=== PATIENT | male | born 1960 | race Caucasian/White ===

== ENCOUNTER 2017-12-03 01:48 | Emergency (ER) | payer MEDICARE, MEDICAID, SELFPAY ==
[2017-12-03 01:50] VITALS: BP 201/101; PULSE 64; RESP 18; TEMP 36.9; O2SAT 96; BMI 35.8
[2017-12-03] MEDS: Diphth,Pertuss(Acell),Tet Vac 0.5 ML Vial IM (04:27)
--- NOTE | 2017-12-03 04:35 | ED.VISSUMM ---
- ER Visit Summary Date of Service: 12/03/17 Chief Complaint: Dog bite History of Present Illness: The patient is a 57 M who was bitten by his neighbor's dog about 6 hours prior to the time of my evaluation. He was bitten on his left hand. He does have a laceration to left thumb. He complains of only mild pain. He denies paresthesias weakness or loss of function. Physical Examination: Afebrile vitals are stable he is hypertensive No distress Heart regular rate and rhythm Lungs are clear There is a 2-1/2 cm laceration of the left thumb he has active full range of motion normal distal sensation with brisk capillary refill Test Results: Not indicated Emergency Department Course and Treatment: Given the length of the laceration and the fact that it is gaping and pulls apart with movement I believe closure is necessary. Patient was anesthetized with a digital block the wound was irrigated with sterile saline and closed with 4 simple interrupted 4-0 absorbable sutures. He was given Augmentin and given a prescription for the same for antibiotic prophylaxis. He was instructed on local wound care. He was instructed on signs and symptoms of infection to monitor for and conditions which should prompt return here for reevaluation. He will otherwise follow-up with his primary care physician. All questions answered at bedside and he was discharged home. Treatment Plan: [] Disposition: Discharge Impression: Dog bite left thumb This note was generated with [employer] dictation software. It may contain incorrect words, spelling, and punctuation that were not noted in review of the chart prior to signing ED Disposition - Plan for ED Patient: Chief Complaint: Bite Referrals: Levon Corral MD [Primary Care Provider] -
[2017-12-03 04:36] VITALS: BP 168/103; PULSE 60; RESP 14; O2SAT 95
--- NOTE | 2017-12-03 04:39 | ED.DCSUM_ITS ---
- ER Visit Summary Date of Service: 12/03/17 Chief Complaint: Dog bite History of Present Illness: The patient is a 57 M who was bitten by his neighbor 's dog about 6 hours prior to the time of my evaluation. He was bitten on his left hand. He does have a laceration to left thumb. He complains of only mild pain. He denies paresthesias weakness or loss of function. Physical Examination: Afebrile vitals are stable he is hypertensive No distress Heart regular rate and rhythm Lungs are clear There is a 2-1/2 cm laceration of the left thumb he has active full range of motion normal distal sensation with brisk capillary refill Test Results: Not indicated Emergency Department Course and Treatment: Given the length of the laceration and the fact that it is gaping and pulls apart with movement I believe closure is necessary. Patient was anesthetized with a digital block the wound was irrigated with sterile saline and closed with 4 simple interrupted 4-0 absorbable sutures. He was given Augmentin and given a prescription for the same for antibiotic prophylaxis. He was instructed on local wound care. He was instructed on signs and symptoms of infection to monitor for and conditions which should prompt return here for reevaluation. He will otherwise follow-up with his primary care physician. All questions answered at bedside and he was discharged home. Treatment Plan: [] Disposition: Discharge Impression: Dog bite left thumb This note was generated with [employer] dictation software. It may contain incorrect words, spelling, and punctuation that were not noted in review of the chart prior to signing ED Disposition - Plan for ED Patient: Chief Complaint: Bite Referrals: Levon Corral MD [Primary Care Provider] -
--- NOTE | 2017-12-03 04:39 | ED.DEP ---
ED Disposition - Plan for ED Patient: Chief Complaint: Bite Instructions: ED Bite Dog Prescriptions: Amox/Clavulanate Tablet [Augmentin Tablet] 875 mg PO Q12H #20 tab Referrals: Levon Corral MD [Primary Care Provider] -
[2017-12-03] MEDS: Amox/Clavulanate 875 MG Tablet PO (04:42)
== END 2017-12-03 04:44 | disposition home or self-care (01) ==
PROVIDERS: Emergency Provider Emergency Medicine; Family Provider Internal Medicine; PCP Internal Medicine
DX: S60.372A Other superficial bite of left thumb, initial encounter (principal); W54.0XXA Bitten by dog, initial encounter; Y93.9 Activity, unspecified; Y92.9 Unspecified place or not applicable; Z23 Encounter for immunization; I10 Essential (primary) hypertension; E78.00 Pure hypercholesterolemia, unspecified; E03.9 Hypothyroidism, unspecified; I48.92 Unspecified atrial flutter; Z87.19 Personal history of other diseases of the digestive system; Z86.79 Personal history of other diseases of the circulatory system; Z79.82 Long term (current) use of aspirin; Z79.01 Long term (current) use of anticoagulants; Z79.899 Other long term (current) drug therapy; Z72.0 Tobacco use
CPT/HCPCS: 12001; 90471; 90715; 99284

== ENCOUNTER 2018-05-13 16:26 | Emergency (ER) | payer MEDICARE, MEDICAID, SELFPAY ==
[2018-05-13 16:29] VITALS: BP 132/88; PULSE 78; RESP 19; TEMP 36.4; O2SAT 99; BMI 35.4
--- NOTE | 2018-05-13 17:10 | RAD_ITS ---
STUDY: X-RAY - CERVICAL SPINE REASON FOR EXAM: Male, 57 years old. Left-sided neck pain radiating to left shoulder. Hit head 4 months ago. TECHNIQUE: 7 view(s) of the cervical spine were obtained. COMPARISON: None FINDINGS: There are degenerative changes of the anterior atlantoaxial articulation. Normal odontoid process. There is straightening of the normal cervical lordosis. There is multi-level endplate spondylosis. There is multi-level degenerative disc disease with multilevel disc space narrowing. Normal visualized intervertebral neuroforamina. There is no evidence of acute fracture or loss of vertebral axial height. There is maintenance of normal alignment. The soft tissue structures are unremarkable. RAD/Cerv Spine 4 or 5 Views IMPRESSION: Straightened cervical lordosis with mild degenerative changes of the cervical spine. Electronically Signed: Rigoberto Larsen DO at 17:45 EST Tel [phone], Service support ,
--- NOTE | 2018-05-13 17:55 | ED.VISSUMM ---
- ER Visit Summary Date of Service: 05/13/18 Chief Complaint: Neck pain times 4 months as well as left trapezius, left shoulder and left upper extremity History of Present Illness: The patient is a 57 M who is right-hand dominant presents with neck pain for 4 months. Complains of burning sensation of the entire left upper extremity. He denies motor weakness. He denies any recent trauma. He denies cardiac or respiratory symptoms. He is presently on [place] and states it is a joke. Past medical history COPD, GERD, chronic atrial fibrillation, hypothyroidism, sleep apnea and abdominal aortic aneurysm Physical Examination: Vital signs noted and blood pressure is elevated 132/88 there is pain to palpation posterior neck predominately left side. There is pain abrasion over the left trapezius muscle. He complains of pain with internal rotation of the left shoulder. There is no discomfort with abduction past 90 degrees. There is no pain with flexion-extension of the elbow or supination pronation of the elbow. He has no pain with flexion extension abduction adduction of the wrist. He denies any pain with movement of his fingers. He denies swelling of his joints. Biceps, brachialis and triceps reflex are 1+ and symmetric. Test Results: 4 view x-ray of the neck reveals prior fracture of the spinous process of C6 and 7. There is mild arthritic changes noted as well. Emergency Department Course and Treatment: X-ray was obtained to evaluate for degenerative disc disease osteophytes etc. Treatment Plan: Patient was referred to Dr. Ellis ansari Dr. since this is a chronic issue and is presently on [place] with no relief. He he may need outpatient testing i.e. EMG etc. Disposition: Discharged to follow-up with his PCP Impression: Exacerbation of chronic neck pain with paresthesia left upper extremity Prior spinous process fracture cervical spine C6 and C7 This note was generated with [employer] dictation software. It may contain incorrect words, spelling, and punctuation that were not noted in review of the chart prior to signing ED Disposition - Plan for ED Patient: Disposition: Home or Assisted Living Chief Complaint: Numb/Ting Instructions: ED Neuropathy Peripheral, ED Neck Back Pain General Referrals: Levon Corral MD [Primary Care Provider] - 3-5 Days Additional Instructions: Take 3 Advil every 6-8 hours in addition to the [place] you were prescribed for your chronic pain.
== END 2018-05-13 18:10 | disposition home or self-care (01) ==
PROVIDERS: Emergency Provider Emergency Medicine; Family Provider Internal Medicine; PCP Internal Medicine
DX: M54.2 Cervicalgia (principal); G89.29 Other chronic pain; R20.2 Paresthesia of skin; E66.9 Obesity, unspecified; J44.9 Chronic obstructive pulmonary disease, unspecified; K21.9 Gastro-esophageal reflux disease without esophagitis; E03.9 Hypothyroidism, unspecified; I48.2 Chronic atrial fibrillation; G47.30 Sleep apnea, unspecified; I71.4 Abdominal aortic aneurysm, without rupture
CPT/HCPCS: 72050; 99283

== ENCOUNTER → 2018-06-03 07:23 | Outpatient (CLI) | payer MEDICARE, MEDICAID, SELFPAY ==
--- NOTE | 2018-06-03 11:17 | NEURO ---
NCS and/or EMG Patient Report Ordering Doctor: Levon Corral DATE OF SERVICE: 06/03/18 This is a upper extremity EMG and nerve conduction study performed on this 57-year-old male with sharp pain in his left shoulder for approximately 5 months with radiates into his hand affecting all fingers. He says the symptoms started after he experienced a fall 5 months ago. Symptoms remain intermittent. He is healthy otherwise without a history of diabetes or significant alcohol intake. Left upper extremity sensory and motor nerve conduction studies performed. The median motor and sensory, ulnar motor and sensory and radial sensory bounces are normal. Median and ulnar F-wave latencies are intact. Left upper extremity needle electromyography is performed. Muscles evaluated included the first dorsal interosseous, abductor pollicis brevis, brachioradialis, biceps, triceps and deltoid muscles. All muscles demonstrated normal insertional activity with absence of pathologic spontaneous activity. Motor unit potential recruitment pattern and amplitude was normal in all muscles tested. In addition to the above and also muscles tested, the supraspinatus, infraspinatus, and C5, 6, 7 paraspinal muscles on the left side were evaluated. His muscles were also normal. Impression: This is a normal electrophysiology study of the left upper extremity. There are neuroimaging of the brachial plexus with MRI may be of benefit.
--- OUTSIDE RECORDS SUMMARY | 2018-07-15 20:00 | XMS RPT_ITS ---
:1960 Author Organization OHIP Care Team Providers Name Role Phone Levon Earl Primary Care Unavailable Prabhakar Beckham Attending Unavailable Levon Earl Primary Care Unavailable Ayush Cope Attending Unavailable Levon Earl Primary Care Unavailable Kamini Granado CNP Attending Unavailable Kamini Granado CNP Referring Unavailable Levon Earl Primary Care Unavailable Ernst Hermosillo Attending Unavailable SIMON, ADRIANO Drake Referring Unavailable LEVON EARL Referring Unavailable LEVON EARL Attending Unavailable KAMINI GRANADO (RESEARCH INVESTIGATOR) Attending Unavailable LEVON EARL Attending Unavailable SIMON, ADRIANO E Referring Unavailable SIMON, ADRIANO E Attending Unavailable SIMON, ADRIANO E Referring Unavailable SIMON, ADRIANO E Referring Unavailable SIMON, ADRIANO E Referring Unavailable SIMON, ADRIANO E Referring Unavailable SIMON, ADRIANO E Referring Unavailable LEVON EARL Attending Unavailable KAMINI GRANADO (EDWIN) Attending Unavailable KAMINI GRANADO (RESEARCH INVESTIGATOR) Referring Unavailable SIMON, ADRIANO E Attending Unavailable SIMON, ADRIANO E Referring Unavailable SIMON, ADRIANO Attending Unavailable SIMON, ADRIANO Referring Unavailable SIMON, ADRIANO Attending Unavailable Levon Earl MD Primary Care Unavailable PROBLEMS PROBLEMS DATE TYPE CONDITION / CODE ATTENDING STATUS SOURCE 05/22/2018 Active Cervicalgia / NA Active [place] M54.2(ICD-10) Clinic Main [place] Repository 05/16/2018 Unknown M54.2 - Cope, Ayush Active [place] [facility] M54.2(ICD-10) Hospital Repository 03/31/2018 Active 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 [facility] (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 Clinic Main therapy / [place] Z79.899(ICD-10) Repository 03/12/2018 Active Essential NA Active [facility] (primary) Clinic Main hypertension / [place] I10(ICD-10) Repository 08/27/2016 Active Atypical atrial ADRIANO MONTES Active [facility] flutter / E Clinic Other I48.4(ICD-10) [place] Repository 08/27/2016 Admitting Unknown / ADRIANO MONTES Active [place] [facility] diagnosis [facility](Unknown[facility] Repository 07/11/2017 Active Persistent atrial NA Active [facility] fibrillation / Clinic Main I48.1(ICD-10) [place] Repository PROCEDURES PROCEDURES No Procedure Records FoundRESULTS RESULTS 12 LEAD ELECTROCARDIOGRAM Observed: 06/16/2018 Status: F Source: [place] 2:33 PM [facility] REPOSITORY [facility] Cardiovascular Services [address] [place] [address] 12 Lead EKG 06/12/18 1632 MR#: [id number] Acct: [id number] Name: JENNIE MCCARTHY . Rep #: [id number] : 1960 57 From: Marcio Hampton MD Attending Dr: Status: DEP ER Ordering Dr: Ernst Hermosillo MD Date: 06/12/18 Location: ED Sex: M C Admitted: Test Reason : Blood Pressure : / mmHG Vent. Rate : 074 BPM Atrial Rate : 264 BPM P-R Int : 000 ms QRS Dur : 098 ms QT Int : 414 ms P-R-T Axes : 085 -05 052 degrees QTc Int : 459 ms Atrial flutter with variable A-V block Inferior infarct , age undetermined Abnormal ECG Confirmed by NIKOS MARIE, MARCIO ([id number]), fan mail editor JUAN ROCK ([id number]) on 06/16/2018 2:33:12 PM Referred By: Kamini Granado Confirmed By:MARCIO HAMPTON MD 06/16/18 1433 Date Marcio Hampton MD CC: MD Viky Hermosillo; Levon Earl MD Signed EMERGENCY DEPARTMENT Observed: 06/12/2018 Status: F Source: [place] SUMMARY 11:26 PM [facility] REPOSITORY [facility] Medical Records Department [address] [place] [address] Emergency Department Summary 06/12/18 1621 MR#: [id number] Acct: [id number] Name: JENNIE MCCARTHY . Rep #: [id number] : 1960 57 From: Ernst Hermosillo MD PCP: Levon Earl MD Status: DEP ER - ER Visit Summary Date of Service: 06/12/18 Chief Complaint: [] Uvula, swollen today History of Present Illness: The patient is a 57 M [] patient reports he is really been in good health he noticed swelling of his uvula this morning that persisted he went to bed feeling fine, had no fever no cough no sore throat, he is not prone to uvular swelling or pharyngitis he had no chest pain he is not short of breath he has had no fever no cough his bowel and bladder habits been normal and his other health conditions have all been stable Physical Examination: [] 165/99, 95% room air afebrile General, no distress resting comfortably HEENT is generally unremarkable except his uvula is obviously swollen and edematous his airways intact for the mouth is normal there is no exudate, his speech is easy and clear to understand no stridor or drooling The neck is supple no adenopathy Cardiovascular, regular rate and rhythm Lungs, clear bilateral Abdomen, soft nontender Extremities, no clubbing cyanosis or edema Neurologic, awake alert answering questions appropriately moving all 4 extremities No complaints other than the above, he was given azithromycin, Naprosyn here first dose without difficulty he is able to eat and drink and swallow without difficulty he will continue those prescriptions follow with his family doctor return for change in symptoms Test Results: [] Emergency Department Course and Treatment: [] Treatment Plan: [] Disposition: [] Home stable Impression: [] Uvulitis This note was generated with Olo dictation software. It may contain incorrect words, spelling, and punctuation that were not noted in review of the chart prior to signing ED Disposition - Plan for ED Patient: Chief Complaint: Shortness of Breath Referrals: Levon Earl MD [Primary Care Provider] - What to do if you have Problems For any increased pain, shortness of breath, bleeding, nausea or vomiting, chest pain, or any unexpected problems, contact your Primary Care Provider. Call [facility] ([phone]) or report to the closest Emergency Room. Call 911 if necessary. 06/12/18 2326 <Electronically signed by Ernst Hermosillo MD> Date Ernst Hermosillo MD Cosigner Signature (If Indicated): Date CC: Levon Earl MD DISCHARGE INSTRUCTION Observed: 06/12/2018 Status: F Source: [place] 4:30 PM [facility] REPOSITORY [facility] Medical Records Department [address] [place] [address] Discharge Instruction 06/12/18 1627 MR#: [id number] Acct: [id number] Name: SHARIJENNIE . Rep #: [id number] : 1960 57 From: Ernst Hermosillo MD PCP: Levon Earl MD Status: PRE ER ED Disposition - Plan for ED Patient: Chief Complaint: Shortness of Breath Instructions: ED Uvulitis Prescriptions: Azithromycin [Zithromax Z-Silver] 250 mg PO UD #1 box Naproxen [Naprosyn] 500 mg PO BID PRN #20 tab Referrals: Levon Earl MD [Primary Care Provider] - What to do if you have Problems For any increased pain, shortness of breath, bleeding, nausea or vomiting, chest pain, or any unexpected problems, contact your Primary Care Provider. Call [facility] ([phone]) or report to the closest Emergency Room. Call 911 if necessary. 06/12/18 1630 <Electronically signed by Ernst Hermosillo MD> Date Ernst Hermosillo MD Cosigner Signature (If Indicated): Date CC: Levon Earl MD NCS AND/OR EMG Observed: 06/04/2018 Status: F Source: [place] PATIENT 4:37 PM [facility] REPOSITORY [facility] Pulmonary Services/Neurology [address] [place] [address] MR#: [id number] Acct: [id number] Name: JENNIE MCCARTHY Sr. Rep #: [id number] : 1960 57 From: Melvin Valentino MD Referring Dr: Kamini Granado [facility] Status: REG CLI Ordering Dr: Date: Location: [facility] Sex: M C NCS and/or EMG Patient Report Ordering Doctor: Levon Earl DATE OF SERVICE: 06/03/18 This is a upper extremity EMG and nerve conduction study performed on this 57-year-old male with sharp pain in his left shoulder for approximately 5 months with radiates into his hand affecting all fingers. He says the symptoms started after he experienced a fall 5 months ago. Symptoms remain intermittent. He is healthy otherwise without a history of diabetes or significant alcohol intake. Left upper extremity sensory and motor nerve conduction studies performed. The median motor and sensory, ulnar motor and sensory and radial sensory bounces are normal. Median and ulnar F-wave latencies are intact. Left upper extremity needle electromyography is performed. Muscles evaluated included the first dorsal interosseous, abductor pollicis brevis, brachioradialis, biceps, triceps and deltoid muscles. All muscles demonstrated normal insertional activity with absence of pathologic spontaneous activity. Motor unit potential recruitment pattern and amplitude was normal in all muscles tested. In addition to the above and also muscles tested, the supraspinatus, infraspinatus, and C5, 6, 7 paraspinal muscles on the left side were evaluated. His muscles were also normal. Impression: This is a normal electrophysiology study of the left upper extremity. There are neuroimaging of the brachial plexus with MRI may be of benefit. 06/04/18 1637 <Electronically signed by Melvin Valentino MD> Date Melvin Valentino MD CC: Kamini Granado; Melvin Valentino MD; Levon Earl MD Date Dictated: 06/03/181116 Date Transcribed: 06/03/181116 Head Of Mobile: SETH Signed PRERNA Observed: 05/23/2018 Status: COMPLETED Source: [place] 12:00 AM [facility] REPOSITORY Telephone (INTMWS) JENNIE MCCARTHY ([id number]) 1960 M Date Time Provider Department 05/23/18 KAMINI GRANADO (EDWIN) INTMWS During your visit today, we recorded the following information about you: Kamini Granado APRN.CNP 05/23/2018 2:17 PM Signed Please let the patient know the-xray of his neck was negative for fracture, old or new VIKA Muñoz Cma 05/23/2018 2:25 PM Signed Patient is notified of all information and verbalizes understanding. Patient states that there has to be something wrong this doesn't make sense to him he still is having pain and numbness in the arm. Veronica Fishman Cma 05/23/2018 2:33 PM Signed Patient aware to keep appointments for EMG and spine medicine for further evaluation and treatment. Veronica Fishman Cma Allergies As of Date: 05/23/2018 Noted Allergy Reaction PREDNISONE 02/27/2011 9 - Itching Date Reviewed: 05/21/2018 Reviewed by: Veronica Fishman Cma - Fully Assessed Reason for Visit: Results [95] Prescriptions as of 05/23/2018 Sig: GABAPENTIN 300 MG CAPSULE Take one capsule by mouth at * TRIAMCINOLONE ACETONIDE 0.5 %* Apply 1 application to affect* HYDROCODONE 5 MG-ACETAMINOPHE* Take 1 tablet by mouth twice * AMITRIPTYLINE 25 MG TABLET Take 1 tablet by mouth daily * LEVOTHYROXINE 150 MCG TABLET TAKE 1 TABLET BY MOUTH EVERY * ALBUTEROL SULFATE 2.5 MG/3 ML* Use 3 mL via nebulizer every * LISINOPRIL 20 MG TABLET Take 1 tablet by mouth once d* HYDROCODONE 5 MG-ACETAMINOPHE* Take 1 tablet by mouth twice * WARFARIN 5 MG TABLET take 5mg tablet on Saturday,Sat* OMEPRAZOLE 20 MG CAPSULE,ALIYAH* Take 1 capsule by mouth daily* ATORVASTATIN 40 MG TABLET Take 1 tablet by mouth once d* NITROGLYCERIN 0.4 MG SUBLINGU* Dissolve 1 tablet under the t* COMPOUNDED PRESCRIPTION NEBULIZER FOR HOME USE. Problem List As Of Date 05/23/2018 Noted Resolved Esophageal reflux [K21.9] Internal hemorrhoids without mention of complic*INVALID FOR*01/02/2017 Tobacco use disorder [F17.200] INVALID FOR*09/04/2011 Chronic airway obstruction, not elsewhere class*INVALID FOR*02/03/2014 Hypothyroidism [E03.9] INVALID FOR* GYNECOMASTIA [N62] INVALID FOR*11/04/2008 Unspecified sleep apnea [G47.30] INVALID FOR*06/09/2013 More... 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 SCREENING FOR CONDITION NOS [Z13.9] INVALID FOR*11/04/2008 Obesity, unspecified [E66.9] INVALID FOR*06/08/2013 History of repair of aneurysm of abdominal aort*INVALID FOR* Lumbago [M54.5] INVALID FOR* More... Patient Noncompliance [Z91.19] INVALID FOR* Erectile dysfunction [N52.9] INVALID FOR*01/02/2017 Pulmonary embolism [I26.99] INVALID FOR*01/06/2013 More... Atrial flutter [I48.92] INVALID FOR*12/31/2017 More... Atrial fibrillation [I48.91] INVALID FOR* Cervicalgia [M54.2] INVALID FOR*04/13/2013 Headache [R51] INVALID FOR*04/13/2013 SUMMARY [V999.95] INVALID FOR*02/03/2014 More... History of pulmonary embolism [Z86.711] INVALID FOR*01/02/2017 More... History of smoking [Z87.891] INVALID FOR*06/09/2013 More... Hyperlipidemia [E78.5] INVALID FOR* More... Atelectasis [J98.11] INVALID FOR*02/03/2014 More... Hypertension [I10] INVALID FOR* Hypovolemia [E86.1] INVALID FOR*06/15/2013 More... VANIA (obstructive sleep apnea) AHI 71 [G47.33] INVALID FOR* Obesity [E66.9] INVALID FOR* Nasal congestion [R09.81] INVALID FOR*08/27/2016 Visual impairment in both eyes [H54.3] INVALID FOR*08/27/2016 Physical deconditioning, multifactorial dyspnea*INVALID FOR*08/27/2016 Lumbar spondylosis [M47.816] INVALID FOR*12/31/2017 DDD (degenerative disc disease), lumbar [M51.36]INVALID FOR*12/31/2017 Sciatica [M54.30] INVALID FOR*08/27/2016 Sebaceous cyst [L72.3] INVALID FOR*01/02/2017 Bronchitis [J40] INVALID FOR* Rosacea [L71.9] INVALID FOR* Obesity, Class II, BMI 35-39.9 [E66.9] INVALID FOR* Encounter Status:Closed by VERONICA ABRAHAM CMA on 05/23/18 XR CERVICAL 2V Observed: 05/22/2018 Status: F Source: [place] AP/LAT 1:41 PM [facility] REPOSITORY * * *Final Report* * * DATE OF EXAM: May 22 2018 1:41PM WOX [id number] - XR CERVICAL 2V AP/LAT / PROCEDURE REASON: Neck pain * * * * Physician Interpretation * * * * CERVICAL SPINE - 05/22/2018 1:41 PM TECHNIQUE: 3 views (AP, LAT, swimmers LAT) HISTORY - Clinical Information/Indication: Left lateral neck and shoulder pain radiating to the fingers; S/P fall hitting 4 head 4 months ago COMPARED WITH: 12/23/2012 cervical spine x-rays RESULT: There is a normal lordosis. Disc space heights are maintained. There is mild anterior endplate osteophytosis at several disc levels. Apophyseal joints appear intact. No listhesis is seen. There is good mineralization. Large ligamentum nuchae ossification is again noted. There has been no significant interval change. IMPRESSION: Minimal spondylosis; no significant interval change Head Of Mobile: [place] Transcribe Date/Time: May 23 2018 11:55A Dictated by : CHARLES MENDEZ MD This examination was interpreted and the report reviewed and electronically signed by: CHARLES MENDEZ MD on May 23 2018 11:59AM EST [id number] PROGRESS Observed: 05/22/2018 Status: COMPLETED Source: [place] 1:32 PM [facility] REPOSITORY HNO ID: [id number] Author: Laisha Brooks Service: (none) Author Type: (none) Type: Progress Notes Filed: 05/22/2018 1:41 PM Note Text: Radiology Service Progress Note PATIENT NAME: Jennie Mccarthy DATE OF SERVICE: May 22, 2018 TIME: 1:32 PM PATIENT IDENTITY VERIFICATION COMPLETED USING TWO (2) METHODS: Patient confirmed name verbally and Date of . PATIENT GENDER DATA: Male PATIENT RELEVANT IMPLANT DATA REVIEWED: Not Applicable RADIOLOGY DEPARTMENT: General X-ray: Exam(s) Completed: Spine X-Ray(s): Cervical AP / LAT PERIPHERAL IV DATA: Not applicable SIGNED BY: Laisha Brooks May 22, 2018 1:32 PM PROGRESS Observed: 05/21/2018 Status: COMPLETED Source: [place] 1:04 PM [facility] REPOSITORY HNO ID: [id number] Author: Kamini Damon) Older Service: (none) Author Type: Nurse Practitioner Type: Progress Notes Filed: 05/22/2018 8:11 AM Note Text: CC: Patient presents with: Follow Up: ER HPI Jennie Mccarthy is a 57 year old male who presents today for ER follow-up. Facility: [facility] Date of visit: 05/13/18 Reason for visit: chronic neck pain radiating into left shoulder and down left arm along with numbness/tingling Hospital course: X-ray of neck per ER report showed prior fracture of the spinous process of C6 and 7. Radiologist reading did not mention any fracture, acute or remote. Mild degenerative changes of the spine seen. Discharge: No further work-up. Patient already prescribed [place] in primary care, was advised to follow-up with PCP to discuss further testing. Current symptoms: Continues to have shooting pain from the left side of his neck down his left arm to his fingers. Positive for numbness/tingling of the entire LUE. This has been ongoing for the past 4 months and getting worse. Does not recall any specific neck injury but hit his head hard enough on a beam to make his head snap forward. Pain started shortly after that. Denies left arm weakness, headache, dizziness, lightheadedness, visual disturbance. Already prescribed hydrocodone twice a day for low back pain, does not help with the neck pain. Muscle relaxers did not help either. Has not treated with ice, heat or any other medications. 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 - Erectile dysfunction 02/27/2011 - Esophageal reflux Gastroesophageal reflux - Fatty liver - GYNECOMASTIA 11/08/2006 - Hemorrhage of rectum and anus 12/25/2009 bleeding hemorrhoids - Hiatal hernia - Hypertension 06/12/2013 - Obesity, unspecified 11/04/2008 - Obstructive sleep apnea - Other and unspecified hyperlipidemia 11/05/2006 - Other emphysema (HCC) Emphysema - Pulmonary embolism (HCC) 05/19/2011 - Substance abuse (HCC) - Tobacco use disorder 10/24/2006 ex-smoker - Unspecified constipation Constipation - Unspecified hypothyroidism 11/05/2006 PAST SURGICAL HISTORY Procedure Laterality Date - ABD AORTA ANEURYSM REPAIR 06/12/2013 Abd Aortic Aneurysm Repair, Endovascular - COLONOSCOP W/ OR W/O [facility] SPEC 12/26/09 - COLONOSCOPY 2005 - HEMORRHOID;BAND LIGAT, SNGL/MUL November2004 - LAP CHOLECYSTECT/CHOLANGIOGRAPHY 07/07/07 - REMOVAL OF TONSILS,<12 Y/O Tonsillectomy ALLERGIES Prednisone MEDICATIONS HYDROcodone-acetaminophen (NORCO) 5-325 mg per tablet Take 1 tablet by mouth twice daily for 30 days.Earliest Fill Date: 05/19/18 amitriptyline (ELAVIL) 25 mg tablet Take 1 tablet by mouth daily at bedtime. levothyroxine (SYNTHROID) 150 mcg tablet TAKE 1 TABLET BY MOUTH EVERY DAY ON EMPTY STOMACH FOR THYROID albuterol (PROVENTIL) 2.5 mg /3 mL (0.083 %) nebulizer solution Use 3 mL via nebulizer every 4 hours as needed for Wheezing/Shortness of Breath. Use over 5-15minutes. lisinopril (ZESTRIL, PRINIVIL) 20 mg tablet Take 1 tablet by mouth once daily. HYDROcodone-acetaminophen (NORCO) 5-325 mg per tablet Take 1 tablet by mouth twice daily for 30 days.Earliest Fill Date: 04/14/18 warfarin (COUMADIN) 5 mg tablet take 5mg tablet on Saturday,Saturday,Saturday, and Saturday,then 7.5mg tablet on Saturday and Saturday or as directed omeprazole (PRILOSEC) 20 mg capsule Take 1 capsule by mouth daily before breakfast. 1/2 hr before meal. For heartburn. atorvastatin (LIPITOR) 40 mg tablet Take 1 tablet by mouth once daily. nitroglycerin sublingual (NITROQUICK) 0.4 mg SL tablet Dissolve 1 tablet under the tongue as needed. FOR CHEST PAIN. IF NO RELIEF CALL 911 Nebulizer NEBULIZER FOR HOME USE. FAMILY HISTORY Problem Relation Age of Onset - other (Pancreatic Cancer) Father CArdiomegaly ( age 72) - other (Pneumonia) Mother age 72 - other (aneursm repair) Mother - Aneurysm Brother Lung Cancer ( age 60's) - Heart Brother PR x 2 - other (aneurysm repair) Brother Social History Substance Use Topics - Smoking status: Current Every Day Smoker Packs/day: 1.00 Years: 35.00 Types: Cigarettes Last attempt to quit: 12/08/2009 - Smokeless tobacco: Former User Comment: 10 cig. per day - Alcohol use No PHYSICAL EXAM BP 130/83 Pulse 80 Temp 36.6 ?C (97.9 ?F) (Temporal Artery) Resp 18 Wt 108 kg (238 lb) SpO2 94% BMI 35.66 kg/m? General Appearance: well appearing, in no acute distress, alert Lungs: lungs clear to auscultation. No wheezing, rhonchi, rales Heart: RRR without murmur, gallop, or rubs. No ectopy Extremities: No deformities, edema, skin discoloration Good capillary refill. Pulses: 2+ Musculoskeletal: Neck: Inspection: Normal Palpation: Tenderness with palpation of left trapezius and upper thoracic spine. No cervical spinal tenderness. Full ROM, painful with flexion and extension. Musculoskeletal: Left shoulder: normal to inspection. Moderate tenderness with palpation of upper scapula and top of shoulder. ROM: Full ROM, pain with internal and external rotation. Special tests: Drop arm: -, Empty Can: -, Infraspinatus: -, Mccartney:-, Neer - Upper extremities: reflexes: +1 to bilateral Upper extremities.. Muscle strength: 5/5 bilaterally ASSESSMENT/PLAN: 1. Cervical radicular pain - ICD9: 723.4, ICD10: M54.12 (primary diagnosis) No alarm symptoms or exam findings. Conflicting radiologist and ER physician interpretation of CS x-ray. Will discuss with PCP, may need another x-ray done. - CONSULT TO [facility] for further evaluation and recommendations, - EMG(NEURO/NI) prior to appointment if possible - Start Gabapentin, see orders. Continue with hydrocodone as ordered - Follow-up as scheduled or sooner as needed 2. Numbness and tingling in left arm - ICD9: 782.0, ICD10: R20.0, R20.2 As above - CONSULT TO [facility] - EMG(NEURO/NI) Prescription instructions reviewed with patient as applicable. Potential red flag symptoms discussed with the patient. Reviewed appropriate action plan to take if red flag symptoms occur. Patient agreeable to treatment plan. Kaimni Granado APRN.EDWIN VELEZ Observed: 05/21/2018 Status: COMPLETED Source: [place] 1:00 PM [facility] REPOSITORY Office Visit (INTMWS) JENNIE MCCARTHY ([id number]) 1960 M Date Time Provider Department 05/21/18 1:00 PM OLDER KAMINI (RESEARCH INVESTIGATOR) INTMWS During your visit today, we recorded the following information about you: Temperature Pulse Respiration Blood pressure 97.9 degrees 80/minute 18/minute 130/83 Weight 108 kg Kamini Granado [employer] 05/22/2018 8:11 AM Signed CC: Patient presents with: Follow Up: ER HPI Jennie Mccarthy is a 57 year old male who presents today for ER follow-up. Facility: [facility] Date of visit: 05/13/18 Reason for visit: chronic neck pain radiating into left shoulder and down left arm along with numbness/tingling Hospital course: X-ray of neck per ER report showed prior fracture of the spinous process of C6 and 7. Radiologist reading did not mention any fracture, acute or remote. Mild degenerative changes of the spine seen. Discharge: No further work-up. Patient already prescribed [place] in primary care, was advised to follow-up with PCP to discuss further testing. Current symptoms: Continues to have shooting pain from the left side of his neck down his left arm to his fingers. Positive for numbness/tingling of the entire LUE. This has been ongoing for the past 4 months and getting worse. Does not recall any specific neck injury but hit his head hard enough on a beam to make his head snap forward. Pain started shortly after that. Denies left arm weakness, headache, dizziness, lightheadedness, visual disturbance. Already prescribed hydrocodone twice a day for low back pain, does not help with the neck pain. Muscle relaxers did not help either. Has not treated with ice, heat or any other medications. 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 - Erectile dysfunction 02/27/2011 - Esophageal reflux Gastroesophageal reflux - Fatty liver - GYNECOMASTIA 11/08/2006 - Hemorrhage of rectum and anus 12/25/2009 bleeding hemorrhoids - Hiatal hernia - Hypertension 06/12/2013 - Obesity, unspecified 11/04/2008 - Obstructive sleep apnea - Other and unspecified hyperlipidemia 11/05/2006 - Other emphysema (HCC) Emphysema - Pulmonary embolism (HCC) 05/19/2011 - Substance abuse (HCC) - Tobacco use disorder 10/24/2006 ex-smoker - Unspecified constipation Constipation - Unspecified hypothyroidism 11/05/2006 PAST SURGICAL HISTORY Procedure Laterality Date - ABD AORTA ANEURYSM REPAIR 06/12/2013 Abd Aortic Aneurysm Repair, Endovascular - COLONOSCOP W/ OR W/O BRSH SPEC 12/26/09 - COLONOSCOPY 2005 - HEMORRHOID;BAND LIGAT, SNGL/MUL November2004 - LAP CHOLECYSTECT/CHOLANGIOGRAPHY 07/07/07 - REMOVAL OF TONSILS,<12 Y/O Tonsillectomy ALLERGIES Prednisone MEDICATIONS HYDROcodone-acetaminophen (NORCO) 5-325 mg per tablet Take 1 tablet by mouth twice daily for 30 days.Earliest Fill Date: 05/19/18 amitriptyline (ELAVIL) 25 mg tablet Take 1 tablet by mouth daily at bedtime. levothyroxine (SYNTHROID) 150 mcg tablet TAKE 1 TABLET BY MOUTH EVERY DAY ON EMPTY STOMACH FOR THYROID albuterol (PROVENTIL) 2.5 mg /3 mL (0.083 %) nebulizer solution Use 3 mL via nebulizer every 4 hours as needed for Wheezing/Shortness of Breath. Use over 5-15minutes. lisinopril (ZESTRIL, PRINIVIL) 20 mg tablet Take 1 tablet by mouth once daily. HYDROcodone-acetaminophen (NORCO) 5-325 mg per tablet Take 1 tablet by mouth twice daily for 30 days.Earliest Fill Date: 04/14/18 warfarin (COUMADIN) 5 mg tablet take 5mg tablet on Saturday,Saturday,Saturday, and Saturday,then 7.5mg tablet on Saturday and Saturday or as directed omeprazole (PRILOSEC) 20 mg capsule Take 1 capsule by mouth daily before breakfast. 1/2 hr before meal. For heartburn. atorvastatin (LIPITOR) 40 mg tablet Take 1 tablet by mouth once daily. nitroglycerin sublingual (NITROQUICK) 0.4 mg SL tablet Dissolve 1 tablet under the tongue as needed. FOR CHEST PAIN. IF NO RELIEF CALL 911 Nebulizer NEBULIZER FOR HOME USE. FAMILY HISTORY Problem Relation Age of Onset - other (Pancreatic Cancer) Father CArdiomegaly ( age 72) - other (Pneumonia) Mother age 72 - other (aneursm repair) Mother - Aneurysm Brother Lung Cancer ( age 60's) - Heart Brother PR x 2 - other (aneurysm repair) Brother Social History Substance Use Topics - Smoking status: Current Every Day Smoker Packs/day: 1.00 Years: 35.00 Types: Cigarettes Last attempt to quit: 12/08/2009 - Smokeless tobacco: Former User Comment: 10 cig. per day - Alcohol use No PHYSICAL EXAM BP 130/83 Pulse 80 Temp 36.6 ?C (97.9 ?F) (Temporal Artery) Resp 18 Wt 108 kg (238 lb) SpO2 94% BMI 35.66 kg/m? General Appearance: well appearing, in no acute distress, alert Lungs: lungs clear to auscultation. No wheezing, rhonchi, rales Heart: RRR without murmur, gallop, or rubs. No ectopy Extremities: No deformities, edema, skin discoloration Good capillary refill. Pulses: 2+ Musculoskeletal: Neck: Inspection: Normal Palpation: Tenderness with palpation of left trapezius and upper thoracic spine. No cervical spinal tenderness. Full ROM, painful with flexion and extension. Musculoskeletal: Left shoulder: normal to inspection. Moderate tenderness with palpation of upper scapula and top of shoulder. ROM: Full ROM, pain with internal and external rotation. Special tests: Drop arm: - , Empty Can: -, Infraspinatus: -, Mccartney:-, Neer - Upper extremities: reflexes: +1 to bilateral Upper extremities.. Muscle strength: 5/5 bilaterally ASSESSMENT/PLAN: 1. Cervical radicular pain - ICD9: 723.4, ICD10: M54.12 (primary diagnosis) No alarm symptoms or exam findings. Conflicting radiologist and ER physician interpretation of CS x-ray. Will discuss with PCP, may need another x-ray done. - [facility] for [facility] evaluation and recommendations, - EMG(NEURO/NI) prior to appointment if possible - Start Gabapentin, see orders. Continue with hydrocodone as ordered - Follow-up as scheduled or sooner as needed 2. Numbness and tingling in left arm - ICD9: 782.0, ICD10: R20.0, R20.2 As above - CONSULT TO [facility] - EMG(NEURO/NI) Prescription instructions reviewed with patient as applicable. Potential red flag symptoms discussed with the patient. Reviewed appropriate action plan to take if red flag symptoms occur. Patient agreeable to treatment plan. VIKA Muñoz APRN.CNP 05/21/2018 1:29 PM Signed For skin problems of the ear: Use Triamcinolone cream prescribed. Thin layer to cover the affected parts of the ear. Use for two weeks and call office if no improvement Referring Provider: SELF [200] Allergies As of Date: 05/21/2018 Noted Allergy Reaction PREDNISONE 02/27/2011 9 - Itching Date Reviewed: 05/21/2018 Reviewed by: Veronica Fishman Pepper Picker - Fully Assessed Reason for Visit: Follow Up [171] Cmt: ER Primary Visit Diagnosis:Cervical radicular pain [M54.12] Other Visit Diagnosis:Numbness and tingling in left arm [R20.0, R20.2] Order(s):CONSULT TO THE [facility] [19991007] Order #: [id number]: 1 EMG(NEURO/NI) [[id number]] Order #: [id number]: 1 FUTURE gabapentin (NEURONTIN) 300 mg capsuleTake one capsule by mouth at bedtime. If no relief after two days can increase to twice daily.Disp: 30 capsuleRfl: 0 triamcinolone acetonide (KENALOG) 0.5 % creamApply 1 application to affected area twice daily. For rash/itching. Apply sparingly. Avoid face/skin fold.Disp: 30 gRfl: 0 Prescriptions as of 05/21/2018 Sig: NITROGLYCERIN 0.4 MG SUBLINGU* Dissolve 1 tablet under the t* COMPOUNDED PRESCRIPTION NEBULIZER FOR HOME USE. GABAPENTIN 300 MG CAPSULE Take one capsule by mouth at * TRIAMCINOLONE ACETONIDE 0.5 %* Apply 1 application to affect* HYDROCODONE 5 MG-ACETAMINOPHE* Take 1 tablet by mouth twice * AMITRIPTYLINE 25 MG TABLET Take 1 tablet by mouth daily * LEVOTHYROXINE 150 MCG TABLET TAKE 1 TABLET BY MOUTH EVERY * ALBUTEROL SULFATE 2.5 MG/3 ML* Use 3 mL via nebulizer every * LISINOPRIL 20 MG TABLET Take 1 tablet by mouth once d* HYDROCODONE 5 MG-ACETAMINOPHE* Take 1 tablet by mouth twice * WARFARIN 5 MG TABLET take 5mg tablet on Saturday,Sat* OMEPRAZOLE 20 MG CAPSULE,ALIYAH* Take 1 capsule by mouth daily* ATORVASTATIN 40 MG TABLET Take 1 tablet by mouth once d* Problem List As Of Date 05/21/2018 Noted Resolved Esophageal reflux [K21.9] Internal hemorrhoids without mention of complic*INVALID FOR*01/02/2017 Tobacco use disorder [F17.200] INVALID FOR*09/04/2011 Chronic airway obstruction, not elsewhere class*INVALID FOR*02/03/2014 Hypothyroidism [E03.9] INVALID FOR* GYNECOMASTIA [N62] INVALID FOR*11/04/2008 Unspecified sleep apnea [G47.30] INVALID FOR*06/09/2013 More... 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 SCREENING FOR CONDITION NOS [Z13.9] INVALID FOR*11/04/2008 Obesity, unspecified [E66.9] INVALID FOR*06/08/2013 History of repair of aneurysm of abdominal aort*INVALID FOR* Lumbago [M54.5] INVALID FOR* More... Patient Noncompliance [Z91.19] INVALID FOR* Erectile dysfunction [N52.9] INVALID FOR*01/02/2017 Pulmonary embolism [I26.99] INVALID FOR*01/06/2013 More... Atrial flutter [I48.92] INVALID FOR*12/31/2017 More... Atrial fibrillation [I48.91] INVALID FOR* Cervicalgia [M54.2] INVALID FOR*04/13/2013 Headache [R51] INVALID FOR*04/13/2013 SUMMARY [V999.95] INVALID FOR*02/03/2014 Priority: Very Severe More... History of pulmonary embolism [Z86.711] INVALID FOR*01/02/2017 More... History of smoking [Z87.891] INVALID FOR*06/09/2013 Priority: C More... Hyperlipidemia [E78.5] INVALID FOR* More... Atelectasis [J98.11] INVALID FOR*02/03/2014 Priority: B More... Hypertension [I10] INVALID FOR* Hypovolemia [E86.1] INVALID FOR*06/15/2013 Priority: F More... VANIA (obstructive sleep apnea) AHI 71 [G47.33] INVALID FOR* Obesity [E66.9] INVALID FOR* Nasal congestion [R09.81] INVALID FOR*08/27/2016 Visual impairment in both eyes [H54.3] INVALID FOR*08/27/2016 Physical deconditioning, multifactorial dyspnea*INVALID FOR*08/27/2016 Lumbar spondylosis [M47.816] INVALID FOR*12/31/2017 DDD (degenerative disc disease), lumbar [M51.36]INVALID FOR*12/31/2017 Sciatica [M54.30] INVALID FOR*08/27/2016 Sebaceous cyst [L72.3] INVALID FOR*01/02/2017 Bronchitis [J40] INVALID FOR* Rosacea [L71.9] INVALID FOR* Obesity, Class II, BMI 35-39.9 [E66.9] INVALID FOR* Other instructions from your clinician: For skin problems of the ear: Use Triamcinolone cream prescribed. Thin layer to cover the affected parts of the ear. Use for two weeks and call office if no improvement Prescriptions ordered this encounter Disp Refills Start End GABAPENTIN 300 MG CAPSULE 30 c* 0 05/21/2018 06/04/2018 Sig: Take one capsule by mouth at bedtime. If no relief after two days can increase to twice daily. TRIAMCINOLONE ACETONIDE 0.5 % TOPICA* 30 g 0 05/21/2018 Route: TOPICAL Sig: Apply 1 application to affected area twice daily. For rash/itching. Apply sparingly. Avoid face/skin fold. Encounter Status:Closed by KAMINI GRANADO CNP on 05/22/18 EMERGENCY DEPARTMENT Observed: 05/13/2018 Status: F Source: [place] SUMMARY 6:01 PM [facility] [place] REPOSITORY [facility] Medical Records Department [address] [place] [address] Emergency Department Summary 05/13/18 1755 MR#: [id number] Acct: [id number] Name: JENNIE MCCARTHY Sr. Rep #: [id number] : 1960 57 From: Ayush Cope MD PCP: Levon Earl MD Status: REG ER - ER Visit Summary Date of Service: 05/13/18 Chief Complaint: Neck pain times 4 months as well as left trapezius, left shoulder and left upper extremity History of Present Illness: The patient is a 57 M who is right- hand dominant presents with neck pain for 4 months. Complains of burning sensation of the entire left upper extremity. He denies motor weakness. He denies any recent trauma. He denies cardiac or respiratory symptoms. He is presently on [place] and states it is a joke. Past medical history COPD, GERD, chronic atrial fibrillation, hypothyroidism, sleep apnea and abdominal aortic aneurysm Physical Examination: Vital signs noted and blood pressure is elevated 132/88 there is pain to palpation posterior neck predominately left side. There is pain abrasion over the left trapezius muscle. He complains of pain with internal rotation of the left shoulder. There is no discomfort with abduction past 90 degrees. There is no pain with flexion-extension of the elbow or supination pronation of the elbow. He has no pain with flexion extension abduction adduction of the wrist. He denies any pain with movement of his fingers. He denies swelling of his joints. Biceps, brachialis and triceps reflex are 1+ and symmetric. Test Results: 4 view x-ray of the neck reveals prior fracture of the spinous process of C6 and 7. There is mild arthritic changes noted as well. Emergency Department Course and Treatment: X-ray was obtained to evaluate for degenerative disc disease osteophytes etc. Treatment Plan: Patient was referred to Dr. Earl is since this is a chronic issue and is presently on [place] with no relief. He he may need outpatient testing i.e. EMG etc. Disposition: Discharged to follow-up with his PCP Impression: Exacerbation of chronic neck pain with paresthesia left upper extremity Prior spinous process fracture cervical spine C6 and C7 This note was generated with Olo dictation software. It may contain incorrect words, spelling, and punctuation that were not noted in review of the chart prior to signing ED Disposition - Plan for ED Patient: Disposition: Home or Assisted Living Chief Complaint: Numb/Ting Instructions: ED Neuropathy Peripheral, ED Neck Back Pain General Referrals: Levon Earl MD [Primary Care Provider] - 3-5 Days Additional Instructions: Take 3 Advil every 6-8 hours in addition to the [place] you were prescribed for your chronic pain. What to do if you have Problems For any increased pain, shortness of breath, bleeding, nausea or vomiting, chest pain, or any unexpected problems, contact your Primary Care Provider. Call [facility] ([phone]) or report to the closest Emergency Room. Call 911 if necessary. 05/13/18 1801 <Electronically signed by Ayush Cope MD> Date Ayush Cope MD Cosigner Signature (If Indicated): Date CC: Levon Earl MD CERV SPINE 4 OR 5 Observed: 05/13/2018 Status: F Source: [place] VIEWS 4:46 PM [facility] [place] REPOSITORY [facility] Imaging Services [address] [place] [address] Cerv Spine 4 or 5 Views MR#: [id number] Acct: [id number] Name: SHARIJENNIE Sr. Rep #: [id number] : 1960 M 57 From: Rigoberto Larsen DO PCP: Levon Earl MD Status: REG ER Study: Cerv Spine 4 or 5 Views Date of Exam: 05/13/18 Exam# [id number] Ordering Dr: Ayush Cope MD STUDY: X-RAY - CERVICAL SPINE REASON FOR EXAM: Male, 57 years old. Left-sided neck pain radiating to left shoulder. Hit head 4 months ago. TECHNIQUE: 7 view(s) of the cervical spine were obtained. COMPARISON: None FINDINGS: There are degenerative changes of the anterior atlantoaxial articulation. Normal odontoid process. There is straightening of the normal cervical lordosis. There is multi-level endplate spondylosis. There is multi-level degenerative disc disease with multilevel disc space narrowing. Normal visualized intervertebral neuroforamina. There is no evidence of acute fracture or loss of vertebral axial height. There is maintenance of normal alignment. The soft tissue structures are unremarkable. RAD/Cerv Spine 4 or 5 Views IMPRESSION: Straightened cervical lordosis with mild degenerative changes of the cervical spine. Electronically Signed: Rigoberto Larsen DO at 17:45 EST Tel [phone], Service support , CC: Ayush Cope MD; Levon Earl MD Head Of Mobile: Signed PROGRESS Observed: 04/02/2018 Status: COMPLETED Source: [place] 4:27 PM [facility] REPOSITORY HNO ID: [id number] Author: Levon Earl Service: (none) Author Type: Physician Type: Progress Notes Filed: 04/02/2018 11:16 PM Note Text: This note was created using [employer]. Subjective Jennie Mccarthy is a 57 year old male He was here for chronic opioid refill. His chronic pains were controlled, and he was taking hydrocodone 2 tablets daily in the morning instead of twice daily. He complained of left posterior shoulder pain, sharp, radiating down his left arm and aggravated by certain positions at night during sleep. Symptom had been about 6 months, initially associated with neck sprain. PAIN ASSESSMENT DOCUMENTATION TOOL (PADT TM) Analgesia 1. What was your pain level on average during the past week? 0 is no pain. 10 is as bad as it can be. 6 2. What was your pain level at its worst during the past week? 9 3. What percentage of your pain has been relieved during the past week? 80%. 4. Is the amount of pain relief you are now obtaining from your current pain reliever(s) enough to make a real difference in your life? Yes. 5. Query to clinician: Is patient 's pain relief clinically significant? Yes. Activities of Daily Living since the patient's last assessment 1. Physical functioning. same 2. Family relationships. same 3. Social relationships. same 4. Mood. same 5. Sleep patterns. better 6. Overall functioning. same Adverse Events 1. Is patient experiencing any side effects from current pain reliever? no a) Nausea None b) Vomiting None c) Constipation None d) Itching None e) Mental cloudiness None f) Sweating None g) Fatigue None h) Drowsiness Mild i) Other _ 2. Patient's overall severity of side effects? Mild Potential Aberrant Drug Related Behavior: Increased dose without authorization Assessment: Is your overall impression that this patient is benefiting (benefits outweigh side effects) from opioid therapy? Yes. Plan: Continue present regimen. Yes. Adjust dose of present analgesic. No. Switch analgesic. no Add/adjust concomitant therapy.no Discontinue/taper off opioid therapy. no Comments: __ Copyright [employer] c2003 All rights reserved. Review of Systems Constitutional: Negative. Respiratory: Negative. Cardiovascular: Negative. Gastrointestinal: Negative. Genitourinary: Negative. Musculoskeletal: Positive for arthralgias. Objective BP 148/90 (BP Site: Right Arm, BP Position: Sitting, BP Cuff Size: Regular Adult) Pulse 68 Temp 37.1 ?C (98.7 ?F) (Left Tympanic) Resp 20 Wt 106.1 kg (233 lb 12.8 oz) BMI 35.03 kg/m? Physical Exam Constitutional: No distress. HENT: Head: Atraumatic. Neck: Neck supple. Cardiovascular: Regular rhythm, S1 normal and S2 normal. Occasional extrasystoles are present. Exam reveals no gallop. No murmur heard. Pulmonary/Chest: Breath sounds normal. Musculoskeletal: Left shoulder: He exhibits decreased range of motion and tenderness. He exhibits no swelling, no crepitus and normal strength. tenderness in the left posterior shoulder supraspinatus area. Assessment and Plan 1. Chronic midline low back pain without sciatica - ICD9: 724.2, 338.29, ICD10: M54.5, G89.29 (primary diagnosis) Chronic low back pain - AMITRIPTYLINE 25 MG TABLET - HYDROCODONE 5 MG-ACETAMINOPHEN 325 MG TABLET - Controlled Medication Agreement renewed. 2. Need for vaccination - ICD9: V05.9, ICD10: Z23 - ADMIN OF INFLUENZA VACCINE - INFLUENZA VACCINE QUADRIVALENT AGE 3 YRS PLUS + IM 3. Obesity, Class II, BMI 35-39.9 - ICD9: 278.00, ICD10: E66.9 Weight loss. 4. Essential hypertension - ICD9: 401.9, ICD10: I10 - suboptimal control - Increase lisinopril (Zestril/Prinivil) - Reviewed risks of HTN and principles of treatment - Goal of BP <130/80 - LISINOPRIL 20 MG TABLET 5. Hypothyroidism, unspecified type - ICD9: 244.9, ICD10: E03.9 - continue current dose of Synthroid. - LEVOTHYROXINE 150 MCG TABLET 6. Bronchitis - ICD9: 490, ICD10: J40 Stable. - ALBUTEROL SULFATE 2.5 MG/3 ML (0.083 %) SOLUTION FOR NEBULIZATION 7. Chronic scapular pain - ICD9: 733.90, 338.29, ICD10: M89.8X1, G89.29 - Left side. - CONSULT TO PHYSICAL THERAPY 8. Cannabis abuse - ICD9: 305.20, ICD10: F12.10 Controlled Medication agreement reviewed. He was advised that I cannot continue to refill hydrocodone if he tests positive for other substance including cannabis. Levon Earl MD CNOV Observed: 04/02/2018 Status: COMPLETED Source: [place] 2:20 PM [facility] REPOSITORY Office Visit (INTMWS) JENNIE MCCARTHY ([id number]) 1960 M Date Time Provider Department 04/02/18 2:20 PM LEVON EARL INTMWS During your visit today, we recorded the following information about you: Temperature Pulse Respiration Blood pressure 98.7 degrees 68/minute 20/minute 148/90 Weight 106.1 kg Dianelys Cruz LPN 04/02/2018 4:24 PM Signed Influenza Vaccine Documentation: ? Patient is identified by name and date of : Yes ? Patient is older than 6 months of age: Yes ? Patient denies a severe allergy to any vaccine component or to a previous dose of influenza vaccine: Yes FOR EGG ALLERGY CONCERNS, REFER TO PROVIDER. ? Denies allergy to gelatin, formaldehyde, thimerosol :Yes ? Patient is afebrile and not moderately or severely ill: Yes ? Does the patient have a history of Guillain ?[place] Syndrome (a severe paralytic illness): No ? Denies bone marrow transplant prior 6 months or solid organ transplant prior 3 months: Yes ? Denies a history of fainting after a prior injection or medical procedure? Yes If patient has fainted in the past, the CDC recommends sitting or lying down for 15 minutes after the vaccination. ? VIS sheet provided: Yes ? See Immunization Form in EpicCare for details of immunizations administered today. If patient reports dizziness, vision changes or ringing in the ears post vaccination ? please have patient sit or lie down for 15 minutes. Levon Earl MD 04/02/2018 11:16 PM Signed This note was created using [employer]. Subjective Jennie Mccarthy is a 57 year old male He was here for chronic opioid refill. His chronic pains were controlled, and he was taking hydrocodone 2 tablets daily in the morning instead of twice daily. He complained of left posterior shoulder pain, sharp, radiating down his left arm and aggravated by certain positions at night during sleep. Symptom had been about 6 months, initially associated with neck sprain. PAIN ASSESSMENT DOCUMENTATION TOOL (PADT TM) Analgesia 1. What was your pain level on average during the past week? 0 is no pain. 10 is as bad as it can be. 6 2. What was your pain level at its worst during the past week? 9 3. What percentage of your pain has been relieved during the past week? 80%. 4. Is the amount of pain relief you are now obtaining from your current pain reliever(s) enough to make a real difference in your life? Yes. 5. Query to clinician: Is patient 's pain relief clinically significant? Yes. Activities of Daily Living since the patient's last assessment 1. Physical functioning. same 2. Family relationships. same 3. Social relationships. same 4. Mood. same 5. Sleep patterns. better 6. Overall functioning. same Adverse Events 1. Is patient experiencing any side effects from current pain reliever? no a) Nausea None b) Vomiting None c) Constipation None d) Itching None e) Mental cloudiness None f) Sweating None g) Fatigue None h) Drowsiness Mild i) Other _ 2. Patient's overall severity of side effects? Mild Potential Aberrant Drug Related Behavior: Increased dose without authorization Assessment: Is your overall impression that this patient is benefiting (benefits outweigh side effects) from opioid therapy? Yes. Plan: Continue present regimen. Yes. Adjust dose of present analgesic. No. Switch analgesic. no Add/adjust concomitant therapy.no Discontinue/taper off opioid therapy. no Comments: __ Copyright [employer] c2003 All rights reserved. Review of Systems Constitutional: Negative. Respiratory: Negative. Cardiovascular: Negative. Gastrointestinal: Negative. Genitourinary: Negative. Musculoskeletal: Positive for arthralgias. Objective BP 148/90 (BP Site: Right Arm, BP Position: Sitting, BP Cuff Size: Regular Adult) Pulse 68 Temp 37.1 ?C (98.7 ?F) (Left Tympanic) Resp 20 Wt 106.1 kg (233 lb 12.8 oz) BMI 35.03 kg/m? Physical Exam Constitutional: No distress. HENT: Head: Atraumatic. Neck: Neck supple. Cardiovascular: Regular rhythm, S1 normal and S2 normal. Occasional extrasystoles are present. Exam reveals no gallop. No murmur heard. Pulmonary/Chest: Breath sounds normal. Musculoskeletal: Left shoulder: He exhibits decreased range of motion and tenderness. He exhibits no swelling, no crepitus and normal strength. tenderness in the left posterior shoulder supraspinatus area. Assessment and Plan 1. Chronic midline low back pain without sciatica - ICD9: 724.2, 338.29, ICD10: M54.5, G89.29 (primary diagnosis) Chronic low back pain - AMITRIPTYLINE 25 MG TABLET - HYDROCODONE 5 MG-ACETAMINOPHEN 325 MG TABLET - Controlled Medication Agreement renewed. 2. Need for vaccination - ICD9: V05.9, ICD10: Z23 - ADMIN OF INFLUENZA VACCINE - INFLUENZA VACCINE QUADRIVALENT AGE 3 YRS PLUS + IM 3. Obesity, Class II, BMI 35-39.9 - ICD9: 278.00, ICD10: E66.9 Weight loss. 4. Essential hypertension - ICD9: 401.9, ICD10: I10 - suboptimal control - Increase lisinopril (Zestril/Prinivil) - Reviewed risks of HTN and principles of treatment - Goal of BP <130/80 - LISINOPRIL 20 MG TABLET 5. Hypothyroidism, unspecified type - ICD9: 244.9, ICD10: E03.9 - continue current dose of Synthroid. - LEVOTHYROXINE 150 MCG TABLET 6. Bronchitis - ICD9: 490, ICD10: J40 Stable. - ALBUTEROL SULFATE 2.5 MG/3 ML (0.083 %) SOLUTION FOR NEBULIZATION 7. Chronic scapular pain - ICD9: 733.90, 338.29, ICD10: M89.8X1, G89.29 - Left side. - CONSULT TO PHYSICAL THERAPY 8. Cannabis abuse - ICD9: 305.20, ICD10: F12.10 Controlled Medication agreement reviewed. He was advised that I cannot continue to refill hydrocodone if he tests positive for other substance including cannabis. MD Levon Soriano MD 04/02/2018 4:46 PM Signed We renewed pain medication agreement. If you test for other substances, I cannot continue to refill pain medication. Referring Provider: SELF [200] Allergies As of Date: 04/02/2018 Noted Allergy Reaction PREDNISONE 02/27/2011 9 - Itching Date Reviewed: 04/02/2018 Reviewed by: Dianelys Cruz LPN - Fully Assessed Reason for Visit: F/U 3 Month [443] Primary Visit Diagnosis:Chronic midline low back pain without sciatica [M54.5, G89.29] Other Visit Diagnoses:Need for vaccination [Z23] Obesity, Class II, BMI 35-39.9 [E66.9] Essential hypertension [I10] Hypothyroidism, unspecified type [E03.9] Bronchitis [J40] Chronic scapular pain [M89.8X1, G89.29] Cannabis abuse [F12.10] Order(s):ADMIN OF INFLUENZA VACCINE [[id number]] Order #: [id number]: 1 INFLUENZA VACCINE QUADRIVALENT AGE 3 YRS PLUS + IM [[id number]] Order #: [id number] amitriptyline (ELAVIL) 25 mg tabletTake 1 tablet by mouth daily at bedtime.Disp: 90 tabletRfl: 3 levothyroxine (SYNTHROID) 150 mcg tabletTAKE 1 TABLET BY MOUTH EVERY DAY ON EMPTY STOMACH FOR THYROIDDisp: 90 tabletRfl: 3 albuterol (PROVENTIL) 2.5 mg /3 mL (0.083 %) nebulizer solutionUse 3 mL via nebulizer every 4 hours as needed for Wheezing/Shortness of Breath. Use over 5-15minutes.Disp: 1 PackageRfl: 0 lisinopril (ZESTRIL, PRINIVIL) 20 mg tabletTake 1 tablet by mouth once daily.Disp: 90 tabletRfl: 3 CONSULT TO PHYSICAL THERAPY [9092] Order #: [id number]: 1 [START ON 04/14/2018] HYDROcodone-acetaminophen (NORCO) 5-325 mg per tabletTake 1 tablet by mouth twice daily for 30 days. Earliest Fill Date: 04/14/18Disp: 60 tabletRfl: 0 Prescriptions as of 04/02/2018 Sig: AMITRIPTYLINE 25 MG TABLET Take 1 tablet by mouth daily * LEVOTHYROXINE 150 MCG TABLET TAKE 1 TABLET BY MOUTH EVERY * ALBUTEROL SULFATE 2.5 MG/3 ML* Use 3 mL via nebulizer every * HYDROCODONE 5 MG-ACETAMINOPHE* Take 1 tablet by mouth twice * WARFARIN 5 MG TABLET take 5mg tablet on Saturday,Sat* OMEPRAZOLE 20 MG CAPSULE,ALIYAH* Take 1 capsule by mouth daily* ATORVASTATIN 40 MG TABLET Take 1 tablet by mouth once d* NITROGLYCERIN 0.4 MG SUBLINGU* Dissolve 1 tablet under the t* COMPOUNDED PRESCRIPTION NEBULIZER FOR HOME USE. LISINOPRIL 20 MG TABLET Take 1 tablet by mouth once d* HYDROCODONE 5 MG-ACETAMINOPHE* Take 1 tablet by mouth twice * Problem List As Of Date 04/02/2018 Noted Resolved Esophageal reflux [K21.9] Internal hemorrhoids without mention of complic*INVALID FOR*01/02/2017 Tobacco use disorder [F17.200] INVALID FOR*09/04/2011 Chronic airway obstruction, not elsewhere class*INVALID FOR*02/03/2014 Hypothyroidism [E03.9] INVALID FOR* GYNECOMASTIA [N62] INVALID FOR*11/04/2008 Unspecified sleep apnea [G47.30] INVALID FOR*06/09/2013 More... 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 SCREENING FOR CONDITION NOS [Z13.9] INVALID FOR*11/04/2008 Obesity, unspecified [E66.9] INVALID FOR*06/08/2013 History of repair of aneurysm of abdominal aort*INVALID FOR* Lumbago [M54.5] INVALID FOR* More... Patient Noncompliance [Z91.19] INVALID FOR* Erectile dysfunction [N52.9] INVALID FOR*01/02/2017 Pulmonary embolism [I26.99] INVALID FOR*01/06/2013 More... Atrial flutter [I48.92] INVALID FOR*12/31/2017 More... Atrial fibrillation [I48.91] INVALID FOR* Cervicalgia [M54.2] INVALID FOR*04/13/2013 Headache [R51] INVALID FOR*04/13/2013 SUMMARY [V999.95] INVALID FOR*02/03/2014 Priority: Very Severe More... History of pulmonary embolism [Z86.711] INVALID FOR*01/02/2017 More... History of smoking [Z87.891] INVALID FOR*06/09/2013 Priority: C More... Hyperlipidemia [E78.5] INVALID FOR* More... Atelectasis [J98.11] INVALID FOR*02/03/2014 Priority: B More... Hypertension [I10] INVALID FOR* Hypovolemia [E86.1] INVALID FOR*06/15/2013 Priority: F More... VANIA (obstructive sleep apnea) AHI 71 [G47.33] INVALID FOR* Obesity [E66.9] INVALID FOR* Nasal congestion [R09.81] INVALID FOR*08/27/2016 Visual impairment in both eyes [H54.3] INVALID FOR*08/27/2016 Physical deconditioning, multifactorial dyspnea*INVALID FOR*08/27/2016 Lumbar spondylosis [M47.816] INVALID FOR*12/31/2017 DDD (degenerative disc disease), lumbar [M51.36]INVALID FOR*12/31/2017 Sciatica [M54.30] INVALID FOR*08/27/2016 Sebaceous cyst [L72.3] INVALID FOR*01/02/2017 Bronchitis [J40] INVALID FOR* Rosacea [L71.9] INVALID FOR* Obesity, Class II, BMI 35-39.9 [E66.9] INVALID FOR* Other instructions from your clinician: We renewed pain medication agreement. If you test for other substances, I cannot continue to refill pain medication. Visit Notes: >> Dianelys Cruz [employer] SatApr 02, 2018 3:48 PM Status: Signed Influenza Vaccine Documentation: ? Patient is identified by name and date of : Yes ? Patient is older than 6 months of age: Yes ? Patient denies a severe allergy to any vaccine component or to a previous dose of influenza vaccine: Yes FOR EGG ALLERGY CONCERNS, REFER TO PROVIDER. ? Denies allergy to gelatin, formaldehyde, thimerosol :Yes ? Patient is afebrile and not moderately or severely ill: Yes ? Does the patient have a history of Guillain ?[place] Syndrome (a severe paralytic illness): No ? Denies bone marrow transplant prior 6 months or solid organ transplant prior 3 months: Yes ? Denies a history of fainting after a prior injection or medical procedure? Yes If patient has fainted in the past, the CDC recommends sitting or lying down for 15 minutes after the vaccination. ? VIS sheet provided: Yes ? See Immunization Form in [facility] for details of immunizations administered today. If patient reports dizziness, vision changes or ringing in the ears post vaccination ? please have patient sit or lie down for 15 minutes. Prescriptions ordered this encounter Disp Refills Start End AMITRIPTYLINE 25 MG TABLET 90 t* 3 04/02/2018 Route: ORAL Sig: Take 1 tablet by mouth daily at bedtime. LEVOTHYROXINE 150 MCG TABLET 90 t* 3 04/02/2018 Sig: TAKE 1 TABLET BY MOUTH EVERY DAY ON EMPTY STOMACH FOR THYROID ALBUTEROL SULFATE 2.5 MG/3 ML (0.083* 1 Pa* 0 04/02/2018 Route: NEBULIZATION Sig: Use 3 mL via nebulizer every 4 hours as needed for Wheezing/Shortness of Breath. Use over 5-15minutes. LISINOPRIL 20 MG TABLET 90 t* 3 04/02/2018 Route: ORAL Sig: Take 1 tablet by mouth once daily. HYDROCODONE 5 MG-ACETAMINOPHEN 325 M* 60 t* 0 04/14/2018 05/14/2018 Class: Print RX Route: ORAL Sig: Take 1 tablet by mouth twice daily for 30 days. Earliest Fill Date: 04/14/18 Medications Discontinued During This Encounter albuterol (PROVENTIL) 5 mg/mL nebu 0.5 * 0 03/21/2017 04/02/2018 Class: Back Office Route: INHALATION Sig: Inhale 0.5 mL as instructed one time only for 1 dose. 1 DOSE NOW - BACK OFFICE. PLACE 0.5 ML PER DROPPER AND 2.5 ML OF NORMAL SALINE INTO RESERVOIR. Disc: Reason for discontinue is not on file. albuterol HFA (PROVENTIL HFA, VENTOL* 1 In* 0 11/21/2015 04/02/2018 Route: INHALATION Sig: Inhale 2 Puffs as instructed every 6 hours as needed (cough, wheezing) for up to 31 days. Disc: Reason for discontinue is not on file. albuterol (PROVENTIL) 5 mg/mL nebu 1 mL 0 11/21/2015 04/02/2018 Class: Back Office Route: INHALATION Sig: Inhale 0.5 mL as instructed one time only for 1 dose. 1 DOSE NOW - BACK OFFICE. PLACE 0.5 ML PER DROPPER AND 2.5 ML OF NORMAL SALINE INTO RESERVOIR. Disc: Reason for discontinue is not on file. albuterol 2.5 mg /3 mL (0.083 %) INH* 3 mL 0 08/20/2011 04/02/2018 Class: In Office Route: NEBULIZATION -UNSPEC Sig: Use 3 mL via nebulizer one time only for 1 dose. Disc: Reason for discontinue is not on file. Cosign accepted by ADRIANO MONTES MD[[id number]] on 08/20/2011 5:03 PM lisinopril (ZESTRIL, PRINIVIL) 10 mg* 90 t* 3 04/10/2017 04/02/2018 Sig: TAKE 1 TABLET BY MOUTH EVERY DAY Disc: Dosage adjustment amitriptyline (ELAVIL) 25 mg tablet 90 t* 3 04/10/2017 04/02/2018 Sig: TAKE 1 TABLET BY MOUTH AT BEDTIME Disc: Reason for discontinue is not on file. levothyroxine (SYNTHROID) 150 mcg ta* 90 t* 3 04/10/2017 04/02/2018 Sig: TAKE 1 TABLET BY MOUTH EVERY DAY ON EMPTY STOMACH FOR THYROID Disc: Reason for discontinue is not on file. albuterol (PROVENTIL) 2.5 mg /3 mL (* 1 Pa* 0 03/27/2017 04/02/2018 Class: Print RX Route: NEBULIZATION -UNSPEC Sig: Use 3 mL via nebulizer every 4 hours as needed for Wheezing/Shortness of Breath. Use over 5-15minutes. Disc: Reason for discontinue is not on file. Disposition: Return in about 3 months (around 07/02/2018). Follow-up and Disposition History Recorded Letter Text [facility], [address] [place] [id number] Controlled Substance Agreement GOAL The purpose of this Agreement is to prevent misunderstandings about certain medicines you will be taking for pain management. It will help both you and your doctor to comply with laws regarding controlled pharmaceuticals. I understand that this Agreement is essential to the trust and confidence necessary in a doctor/patient relationship and that my doctor undertakes to treat me based on this Agreement. AGREEMENT I, MrChay Mccarthy, understand that if I break this Agreement, my doctor will stop prescribing these pain-control medicines. In this case, my doctor will taper off the medicine over a period of several days, as necessary, to avoid withdrawal symptoms. A drug-dependence treatment program may be recommended. In certain cases, you may be terminated as a patient. 1. I will communicate fully with my doctor about the character and intensity of my pain, its effect on my daily life, and how well the medicine is helping to relieve the pain. 2. I will not use any illegal controlled substances, including marijuana, cocaine, etc. Random urine and/or serum toxicology screens may be requested; this testing may be unannounced and occur at any time. I agree that I will submit to a blood or urine test if requested by my doctor to determine my compliance with my program of pain control medicine. 3. I will not share, sell or trade my medication with anyone. 4. I will not attempt to obtain any controlled substance from any other doctor, other than a covering physician. 5. I will safeguard my pain medicine from loss or theft. Lost or stolen medicines may not be replaced. 6. I agree that refills of my prescriptions for pain medicine will be made only at the time of an office visit or during regular office hours. No refills will be available on evenings or weekends. 7. I authorize the doctor and my pharmacy to cooperate fully with any city, state or federal law enforcement agency, including this state's Board of Pharmacy, in the investigation of any possible misuse, sale, or other diversion of my medication. I authorize my doctor to provide a copy of this Agreement to my pharmacy. I agree to waive any applicable privilege or right of privacy or confidentiality with respect to these authorizations. Pharmacy: __[facility] Location: [place] Phone number:__ [phone]. I agree that I will use my medicine at a rate no greater than the prescribed rate and that use of my medicine at a greater rate may result in my being without medication for a period of time. 9. If legal authorities have questions concerning treatment, for example, if a patient were obtaining medications at several pharmacies, all confidentiality is waived and the authorities may be given full access to the [facility] Records of narcotic administration. 10. I agree to follow these guidelines and they have been fully explained to me. All of my questions and concerns regarding treatment have been answered. A copy of this document has been given to me. Patient: Date: April 02, 2018 Jennie Mccarthy [id number] Physician: Date: April 02, 2018 Levon Earl MD Encounter Status:Closed by LEVON EARL MD on 04/02/18 PROTIME Collected: 03/31/2018 Status: F Source: [place] 3:23 PM [facility] REPOSITORY TYPE CODE TESTS RESULT OUT OF RANGE REFERENCE UNITS LAB PSEC 9.7-13.0 sec High PT Sec 17.5 LAB INR 0.9-1.3 High PT INR 1.7 Result Comment: Vitamin K Antagonist (VKA) Therapeutic Range: INR 2 to 3 (Target INR of 2.5) Note: For patients treated with VKA drugs, such as warfarin, the [employer] [employer] 2012 Guideline recommends a therapeutic INR range of 2 to 3 (target INR of 2.5). This recommendation includes high-risk patients with antiphospholipid syndrome with previous arterial or venous thromboembolism, current-generation mechanical or bioprosthetic aortic heart valve replacement. Note: Patients with mechanical aortic valve replacement and additional risk factors for thromboembolic events (atrial fibrillation, previous thromboembolism, LV dysfunction, hypercoagulable conditions) or an older generation mechanical AVR (i.e., ball in-Cage) or any mechanical MVR should have a INR therapeutic range of 2.5 to 3.5 (target INR of 3). Lili GH, et al. Chest 2012, 141:7S-47S Alcira RA, et al. [facility] 2017, 70: 252-289 Performed By: #### PT #### [facility] [address] [place], [place] [address] HEMOGLOBIN A1C Collected: 03/31/2018 Status: F Source: [place] 3:22 PM [facility] REPOSITORY TYPE CODE TESTS RESULT OUT OF REFERENCE UNITS RANGE LAB HGBA1C 4.3-5.6 % High Hemoglobin A1c 5.7 LAB HBA0 mg/dL Est. Average Glucose 117 Result Comment: eAG: (Estimated average glucose) is a calculated value from HgbA1c and is service representative of the average blood glucose level in the last 2-3 month period. Performed By: #### HBA1C, BMP, TSH #### [facility] [employer] [address] [id number] BASIC METABOLIC PANL Collected: 03/31/2018 Status: F Source: [place] 3:22 [facility] REPOSITORY TYPE CODE TESTS RESULT OUT OF REFERENCE UNITS RANGE LAB GLU 74-99 mg/dL Glucose 86 Result Comment: The [place] [employer] Association (ADA) provides guidance for cutoff values for fasting glucose and random glucose. The ADA defines fasting as no caloric intake for at least 8 hours. Fas ting plasma glucose results between 100 to 125 mg/dL indicate increased risk for diabetes (prediabetes). Fasting plasma glucose results greater than or equal to 126 mg/dL meet the criteria for diagnosis of diabetes. In the absence of unequivocal hyperglycemia, results should be confirmed by repeat testing. In a patient with classic symptoms of hyperglycemia or hyperglycemic crisis, random plasma glucose results greater than or equal to 200 mg/dL meet the criteria for diagnosis of diabetes. Reference: Standards of Medical Care in Diabetes 2016, [place] [employer]. Diabetes Care. 2016.39(Suppl 1). LAB BUN 9-24 mg/dL BUN 13 LAB CRET 0.73-1.22 mg/dL Creatinine 0.75 LAB NA 136-144 mmol/L Sodium 140 LAB K 3.7-5.1 mmol/L Potassium 3.7 LAB CL 97-105 mmol/L Chloride 103 LAB CO2 22-30 mmol/L CO2 Low 21 LAB AGAP 9-18 mmol/L Anion Gap 16 LAB CA 8.5-10.2 mg/dL Calcium, Total 9.1 LAB GFRAA eGFR- Amer. >60 LAB GFRNAA . eGFR-All Other Races >60 Result Comment: eGFR (Estimated GFR) Units of measure: mL/min/1.73 meters squared eGFR is derived from the reexpressed MDRD Study equation using the following parameters: serum creatinine, age, gender and race. The creatinine assay has been calibrated to be traceable to [email or web address]. An eGFR <60 mL/min/1.73m2 for >3 months is consistent with chronic kidney disease. Refer to KDOQI guidelines for clinical interpretation. In patients with unstable renal function, e.g. those with acute kidney injury, the eGFR may not accurately reflect actual GFR. Performed By: #### HBA1C, BMP, TSH #### [facility] [employer] [address] [place], [place] [address] TSH Collected: 03/31/2018 Status: F Source: [place] 3:22 PM [facility] REPOSITORY TYPE CODE TESTS RESULT OUT OF RANGE REFERENCE UNITS LAB TSH 0.400-5.500 uU/mL TSH 0.885 Performed By: #### HBA1C, BMP, TSH #### [facility] [employer] [address] [place], [place] [address] CNPTOUTREACH Observed: 03/18/2018 Status: COMPLETED Source: [place] 12:00 AM [facility] REPOSITORY Patient Outreach ([facility]) JENNIE MCCARTHY ([id number]) 1960 M Date Time Provider Department 03/18/18 LEVON EARL [facility] During your visit today, we recorded the following information about you: Allergies As of Date: 03/18/2018 Noted Allergy Reaction PREDNISONE 02/27/2011 9 - Itching Date Reviewed: 03/12/2018 Reviewed by: Melly Gonzalez - Fully Assessed Visit Diagnosis:Medication management [Z79.899] Order(s):TSH BLD [SQTSH] Order #: [id number] FUTURE HGB A1C [RADXJ5T] Order #: [id number] FUTURE Prescriptions as of 03/18/2018 Sig: HYDROCODONE 5 MG-ACETAMINOPHE* Take 1 tablet by mouth twice * WARFARIN 5 MG TABLET take 5mg tablet on Saturday,Sat* OMEPRAZOLE 20 MG CAPSULE,ALIYAH* Take 1 capsule by mouth daily* ATORVASTATIN 40 MG TABLET Take 1 tablet by mouth once d* NITROGLYCERIN 0.4 MG SUBLINGU* Dissolve 1 tablet under the t* X LISINOPRIL 10 MG TABLET TAKE 1 TABLET BY MOUTH EVERY * X AMITRIPTYLINE 25 MG TABLET TAKE 1 TABLET BY MOUTH AT BED* X LEVOTHYROXINE 150 MCG TABLET TAKE 1 TABLET BY MOUTH EVERY * X ALBUTEROL SULFATE 2.5 MG/3 ML* Use 3 mL via nebulizer every * COMPOUNDED PRESCRIPTION NEBULIZER FOR HOME USE. Problem List As Of Date 03/18/2018 Noted Resolved Esophageal reflux [K21.9] Internal hemorrhoids without mention of complic*INVALID FOR*01/02/2017 Tobacco use disorder [F17.200] INVALID FOR*09/04/2011 Chronic airway obstruction, not elsewhere class*INVALID FOR*02/03/2014 Hypothyroidism [E03.9] INVALID FOR* GYNECOMASTIA [N62] INVALID FOR*11/04/2008 Unspecified sleep apnea [G47.30] INVALID FOR*06/09/2013 More... 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 SCREENING FOR CONDITION NOS [Z13.9] INVALID FOR*11/04/2008 Obesity, unspecified [E66.9] INVALID FOR*06/08/2013 History of repair of aneurysm of abdominal aort*INVALID FOR* Lumbago [M54.5] INVALID FOR* More... Patient Noncompliance [Z91.19] INVALID FOR* Erectile dysfunction [N52.9] INVALID FOR*01/02/2017 Pulmonary embolism [I26.99] INVALID FOR*01/06/2013 More... Atrial flutter [I48.92] INVALID FOR*12/31/2017 More... Atrial fibrillation [I48.91] INVALID FOR* Cervicalgia [M54.2] INVALID FOR*04/13/2013 Headache [R51] INVALID FOR*04/13/2013 SUMMARY [V999.95] INVALID FOR*02/03/2014 Priority: Very Severe More... History of pulmonary embolism [Z86.711] INVALID FOR*01/02/2017 More... History of smoking [Z87.891] INVALID FOR*06/09/2013 Priority: C More... Hyperlipidemia [E78.5] INVALID FOR* More... Atelectasis [J98.11] INVALID FOR*02/03/2014 Priority: B More... Hypertension [I10] INVALID FOR* Hypovolemia [E86.1] INVALID FOR*06/15/2013 Priority: F More... VANIA (obstructive sleep apnea) AHI 71 [G47.33] INVALID FOR* Obesity [E66.9] INVALID FOR* Nasal congestion [R09.81] INVALID FOR*08/27/2016 Visual impairment in both eyes [H54.3] INVALID FOR*08/27/2016 Physical deconditioning, multifactorial dyspnea*INVALID FOR*08/27/2016 Lumbar spondylosis [M47.816] INVALID FOR*12/31/2017 DDD (degenerative disc disease), lumbar [M51.36]INVALID FOR*12/31/2017 Sciatica [M54.30] INVALID FOR*08/27/2016 Sebaceous cyst [L72.3] INVALID FOR*01/02/2017 Bronchitis [J40] INVALID FOR* Rosacea [L71.9] INVALID FOR* Encounter Status:Closed by EPIC, PRODUSER on 04/18/18 [facility] Collected: 03/12/2018 Status: F Source: [place] 4:54 PM [facility] REPOSITORY TYPE CODE TESTS RESULT OUT OF REFERENCE UNITS RANGE LAB NA 128-145 mmol/L Sodium 142 LAB K 3.6-5.1 mmol/L Potassium 3.6 LAB CL 98-108 mmol/L Chloride 108 LAB CO2 18-33 mmol/L CO2 26 LAB CRET 0.6-1.2 mg/dL Creatinine 0.60 LAB BUN 7-22 mg/dL BUN 10 LAB GLU 73-118 mg/dL Glucose 112 LAB CA 8.0-10.3 mg/dL Calcium, Total 9.4 LAB MG 1.6-2.3 mg/dL Magnesium 2.0 LAB AGAP 9-18 mmol/L Low Anion Gap 8 LAB GFRAA eGFR- >60 Amer. LAB GFRNAA . eGFR-All Other Races >60 Result Comment: eGFR (Estimated GFR) Units of measure: mL/min/1.73 meters squared eGFR is derived from the reexpressed MDRD Study equation using the following parameters: serum creatinine, age, gender and race. The creatinine assay has been calibrated to be traceable to IDMS. An eGFR <60 mL/min/1.73m2 for >3 months is consistent with chronic kidney disease. Refer to KDOQI guidelines for clinical interpretation. In patients with unstable renal function, e.g. those with acute kidney injury, the eGFR may not accurately reflect actual GFR. CBC Collected: 03/12/2018 Status: F Source: [place] 4:54 PM [facility] REPOSITORY TYPE CODE TESTS RESULT OUT OF REFERENCE UNITS RANGE LAB WBC 3.70-11.00 k/uL WBC 8.64 LAB RBC 4.20-6.00 m/uL RBC 4.98 LAB HGB 13.0-17.0 g/dL Hemoglobin 15.8 LAB HCT 39.0-51.0 % Hematocrit 46.8 LAB MCV 80.0-100.0 fL MCV 94.0 LAB MCH 26.0-34.0 pG MCH 31.7 LAB MCHC 30.5-36.0 g/dL MCHC 33.8 LAB RDWCV 11.5-15.0 % RDW-CV 12.6 LAB PLTCT 150-400 k/uL Platelet Count 211 LAB MPV 9.0-12.7 fL MPV 10.4 LAB ABSNUC <0.01 k/uL Absolute nRBC <0.01 Performed By: #### CBC, LIPNF #### [facility] [address] [place] [address] LIPID PANEL, NONFAST Collected: 03/12/2018 Status: F Source: [place] 4:54 PM [facility] REPOSITORY TYPE CODE TESTS RESULT OUT OF REFERENCE UNITS RANGE LAB CHOLNF <200 mg/dL Total High Cholesterol NF 205 Result Comment: <200 mg/dL, Desirable 200-239 mg/dL, Borderline high >239 mg/dL, High LAB TRIGNF <150 mg/dL Triglycerides, NF High 192 Result Comment: <150 mg/dL, Normal 150-199 mg/dL, Borderline high 200-499 mg/dL, High >499 mg/dL, Very high LAB HDLNF >39 mg/dL HDL Cholesterol, NF Low 28 Result Comment: 40-59 mg/dL, Acceptable >59 mg/dL, High: Negative risk factor for coronary heart disease <40 mg/dL, Low: Positive risk factor for coronary heart disease LAB LDLNF <100 mg/dL LDL Cholesterol, High NF 139 Result Comment: <100 mg/dL, Optimal 100-129 mg/dL, Near optimal/above optimal 130-159 mg/dL, Borderline high 160-189 mg/dL, High >189 mg/dL, Very high Secondary prevention optimal LDL Cholesterol levels are recommended to be < 70 mg/dL LAB NOHDLN <130 mg/dL High Non HDL Chol, 177 NF Result Comment: <130 mg/dL, Optimal 130-159 mg/dL, Near optimal/above optimal 160-189 mg/dL, Borderline high 190-219 mg/dL, High >219 mg/dL, Very high Secondary prevention optimal non HDL Cholesterol levels are recommended to be < 100 mg/dL LAB VLDLNF <30 mg/dL VLDL Cholesterol, High NF 38 LAB TCHDLN <5.10 mg/dL T Chol/HDL Ratio High NF 7.32 LAB LDLHDN <2.54 mg/dL LDL/HDL Ratio, NF High 4.96 Result Comment: Reference: 1. National Cholesterol Education Program ATP III Guideline At-A-Glance Quick Desk Reference: National Heart, Lung, and Blood [place]. National Institutes of Health. 2001: NIH Publication No. 01-3305. 2. An International Atherosclerosis Society position paper: global recommendations for the management of dyslipidemia: executive summary, Atherosclerosis. 2014: 232(2):410-413. Performed By: #### CBC, LIPNF #### [facility] [address] [place] [address] PROTIME Collected: 03/12/2018 Status: F Source: [place] 4:54 PM [facility] REPOSITORY TYPE CODE TESTS RESULT OUT OF RANGE REFERENCE UNITS LAB PSEC 9.7-13.0 sec High PT Sec 20.1 LAB INR 0.9-1.3 High PT INR 2.0 Result Comment: Vitamin K Antagonist (VKA) Therapeutic Range: INR 2 to 3 (Target INR of 2.5) Note: For patients treated with VKA drugs, such as warfarin, the [place] [employer] 2012 Guideline recommends a therapeutic INR range of 2 to 3 (target INR of 2.5). This recommendation includes high-risk patients with antiphospholipid syndrome with previous arterial or venous thromboembolism, current-generation mechanical or bioprosthetic aortic heart valve replacement. Note: Patients with mechanical aortic valve replacement and additional risk factors for thromboembolic events (atrial fibrillation, previous thromboembolism, LV dysfunction, hypercoagulable conditions) or an older generation mechanical AVR (i.e., ball in-Cage) or any mechanical MVR should have a INR therapeutic range of 2.5 to 3.5 (target INR of 3). Lili YANEZ, et al. Chest 2012, 141:7S-47S Alcira RA, et al. [facility] 2017, 70: 252-289 Performed By: #### PT #### [facility] [employer] [address] [place], [place] [address] PROGRESS Observed: 03/12/2018 Status: COMPLETED Source: [place] 4:29 PM [facility] REPOSITORY HNO ID: [id number] Author: Adriano Montes Service: (none) Author Type: Physician Type: Progress Notes Filed: 03/12/2018 4:36 PM Note Text: PERTINENT CARDIAC HISTORY Atrial flutter - rate control AAA - 5.3 cm, repair 2013 Pulmonary embolism Sick sinus VANIA - CPAP HL HTN Tobaccoism ADHERENCE TO GUIDELINES WILEY-I or ARB for HF with prior LVEF<40 (NQF 0081) - N/A ASA or Plavix for ASHD (NQF 0067) - N/A Beta bethany for ASHD with prior PR or prior LVEF<40 (NQF 0070) - N/A Beta bethany for HF with prior LVEF<40 (NQF 0083) - N/A WILEY-I or ARB for ASHD with DM or prior LVEF<40 (NQF 0066) - N/A Statin therapy for ASHD or FHL or DM - met BMI documented and plan if >25 (NQ 0421) - lifestyle recommendation form Tobacco use screening and referral ([facility] 0028) - lifestyle recommendation form Recommendation for whole food, plant based diet - lifestyle recommendation form CLINICAL IMPRESSION/PLAN: Jennie Mccarthy is clinically stable. His atrial flutter was felt to be permanent, but he has converted. It is unclear when this happened as it is asymptomatic. It is possible that it has been intermittent all along. I have encouraged him to continue his current medication and use his CPAP. Increasing exercise will help control his weight and blood pressure. I asked him to continue working with primary care on his left shoulder pain, which is clearly musculoskeletal. He will undergo labs for follow-up of renal function and lipids. I will see him in 8 months or as needed. Written and verbal health teaching given to patient, patient verbalizes understanding and agrees with treatment plan. DIAGNOSIS FOR VISIT: Atrial flutter Hypertension HISTORY OF PRESENT ILLNESS Jennie Mccarthy returns for follow-up of multiple cardiac issues, as noted above. His exercise tolerance has been stable. He has had no recent exertional chest discomfort. He had a blunt head injury about 8 months ago. Since that time he has had some cervical spine discomfort and left shoulder pain. He is working with primary care on this. He has had no change in exercise tolerance. He denies edema, syncope, TIAs, amaurosis or claudication. He is unaware of his heart rhythm. ALLERGIES: ALLERGIES Allergen Reactions - Prednisone Itching CURRENT OUTPATIENT MEDICATIONS: warfarin (COUMADIN) 5 mg tablet take 5mg tablet on Saturday,Saturday,Saturday, and Saturday,then 7.5mg tablet on Saturday and Saturday or as directed HYDROcodone-acetaminophen (NORCO) 5-325 mg per tablet Take 1 tablet by mouth twice daily for 30 days.Earliest Fill Date: 02/10/18 omeprazole (PRILOSEC) 20 mg capsule Take 1 capsule by mouth daily before breakfast. 1/2 hr before meal. For heartburn. atorvastatin (LIPITOR) 40 mg tablet Take 1 tablet by mouth once daily. nitroglycerin sublingual (NITROQUICK) 0.4 mg SL tablet Dissolve 1 tablet under the tongue as needed. FOR CHEST PAIN. IF NO RELIEF CALL 911 lisinopril (ZESTRIL, PRINIVIL) 10 mg tablet TAKE 1 TABLET BY MOUTH EVERY DAY amitriptyline (ELAVIL) 25 mg tablet TAKE 1 TABLET BY MOUTH AT BEDTIME levothyroxine (SYNTHROID) 150 mcg tablet TAKE 1 TABLET BY MOUTH EVERY DAY ON EMPTY STOMACH FOR THYROID albuterol (PROVENTIL) 2.5 mg /3 mL (0.083 %) nebulizer solution Use 3 mL via nebulizer every 4 hours as needed for Wheezing/Shortness of Breath. Use over 5-15minutes. Nebulizer NEBULIZER FOR HOME USE. PHYSICAL EXAMINATION: VITAL SIGNS: BP 133/85 Pulse 68 Wt 239 lb 6.4 oz (108.6kg) Chest: Clear to auscultation. Trachea is midline. Air entry is equal. Cardiac: Regular rhythm. S1 and S2 are normal. PMI is nondisplaced. There is a soft aortic flow murmur. Carotids are brisk without bruits. JVP is less than 10 cm. Abdomen: Soft and nontender. There are no pulsatile masses or bruits. No liver enlargement. Bowel sounds are active. Extremities: Trace edema. Pulses are intact and symmetrical. EKG shows sinus rhythm and is within normal limits. Since prior study, the atrial flutter has resolved. No recent labs are available. Electronically Signed: Adriano Montes MD March 12, 2018 4:29 PM CC: Levon Earl MD CNOV Observed: 03/12/2018 Status: COMPLETED Source: [place] 4:00 PM [facility] REPOSITORY Office Visit (CAWSTR) JENNIE MCCARTHY ([id number]) 1960 M Date Time Provider Department 03/12/18 4:00 PM ADRIANO MONTESTR During your visit today, we recorded the following information about you: Pulse Blood pressure Weight 68/minute 133/85 108.6 kg Adriano Montes MD 03/12/2018 4:15 PM Signed LIFESTYLE CHANGE A healthy lifestyle is the most important component of your overall treatment plan. 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 EAT A WHOLE FOOD, PLANT BASED DIET The nutrition your body gets is more important than the medicine you take. What matters most is the overall way you eat. We encourage you to minimize the use of animal products (which include dairy and all meats except fatty fish) and use whole, unprocessed plant foods to provide your protein, vitamins and other nutrients. We have a lot of information to share with you on this topic. This is not a diet. It is a way of life that you will keep with you. EXERCISE REGULARLY It is not important to spend hours in the gym, lifting weights and perspiring heavily. A total of 2-3 hours per week of aerobic (causing you to be moderately short of breath) exercise is sufficient to improve your health. Talk to us before you begin a new exercise program, if you have heart disease or experience shortness of breath or chest pain. REDUCE STRESS Chronic emotional and physical stress leads to disease. Ways of reducing stress include meditation, visualization, prayer, yoga and other forms of relaxation therapy. Consistency is the elaine. Find a technique that works for you and do it every day. CULTIVATE RELATIONSHIPS Loneliness and isolation have a major negative impact on health. Seek out others who can love, care for and nurture you. Avoid hurtful relationships. MAINTAIN IDEAL BODY WEIGHT The best way to do this is to do all the things above. Our bodies naturally find the right weight if we keep moving and feed ourselves the right food. If your BMI is greater than 25, we strongly recommend a referral to a weight management program. Please speak to us or your family physician about available programs. AVOID NICOTINE IN ALL FORMS This includes all tobacco products, whether chewed, smoked, vaped, or rubbed on the skin. Smoking cessation programs, which can make use of tobacco substitutes, medications to suppress cravings and behavior management, are available. Please contact your family physician about programs in your area. Adriano Montes MD 03/12/2018 4:36 PM Signed PERTINENT CARDIAC HISTORY Atrial flutter - rate control AAA - 5.3 cm, repair 2012 Pulmonary embolism Sick sinus VANIA - CPAP HL HTN Tobaccoism ADHERENCE TO GUIDELINES WILEY-I or ARB for HF with prior LVEF<40 (NQF 0081) - N/A ASA or Plavix for ASHD (NQF 0067) - N/A Beta bethany for ASHD with prior PR or prior LVEF<40 (NQF 0070) - N/A Beta bethany for HF with prior LVEF<40 (NQF 0083) - N/A WILEY-I or ARB for ASHD with DM or prior LVEF<40 (NQF 0066) - N/A Statin therapy for ASHD or FHL or DM - met BMI documented and plan if >25 (NQF 0421) - lifestyle recommendation form Tobacco use screening and referral (NQF 0028) - lifestyle recommendation form Recommendation for whole food, plant based diet - lifestyle recommendation form CLINICAL IMPRESSION/PLAN: Jennie Mccarthy is clinically stable. His atrial flutter was felt to be permanent, but he has converted. It is unclear when this happened as it is asymptomatic. It is possible that it has been intermittent all along. I have encouraged him to continue his current medication and use his CPAP. Increasing exercise will help control his weight and blood pressure. I asked him to continue working with primary care on his left shoulder pain, which is clearly musculoskeletal. He will undergo labs for follow-up of renal function and lipids. I will see him in 8 months or as needed. Written and verbal health teaching given to patient, patient verbalizes understanding and agrees with treatment plan. DIAGNOSIS FOR VISIT: Atrial flutter Hypertension HISTORY OF PRESENT ILLNESS Jennie Mccarthy returns for follow-up of multiple cardiac issues, as noted above. His exercise tolerance has been stable. He has had no recent exertional chest discomfort. He had a blunt head injury about 8 months ago. Since that time he has had some cervical spine discomfort and left shoulder pain. He is working with primary care on this. He has had no change in exercise tolerance. He denies edema, syncope, TIAs, amaurosis or claudication. He is unaware of his heart rhythm. ALLERGIES: ALLERGIES Allergen Reactions - Prednisone Itching CURRENT OUTPATIENT MEDICATIONS: warfarin (COUMADIN) 5 mg tablet take 5mg tablet on Saturday,Saturday,Saturday, and Saturday,then 7.5mg tablet on Saturday and Saturday or as directed HYDROcodone-acetaminophen (NORCO) 5-325 mg per tablet Take 1 tablet by mouth twice daily for 30 days.Earliest Fill Date: 02/10/18 omeprazole (PRILOSEC) 20 mg capsule Take 1 capsule by mouth daily before breakfast. 1/2 hr before meal. For heartburn. atorvastatin (LIPITOR) 40 mg tablet Take 1 tablet by mouth once daily. nitroglycerin sublingual (NITROQUICK) 0.4 mg SL tablet Dissolve 1 tablet under the tongue as needed. FOR CHEST PAIN. IF NO RELIEF CALL 911 lisinopril (ZESTRIL, PRINIVIL) 10 mg tablet TAKE 1 TABLET BY MOUTH EVERY DAY amitriptyline (ELAVIL) 25 mg tablet TAKE 1 TABLET BY MOUTH AT BEDTIME levothyroxine (SYNTHROID) 150 mcg tablet TAKE 1 TABLET BY MOUTH EVERY DAY ON EMPTY STOMACH FOR THYROID albuterol (PROVENTIL) 2.5 mg /3 mL (0.083 %) nebulizer solution Use 3 mL via nebulizer every 4 hours as needed for Wheezing/Shortness of Breath. Use over 5-15minutes. Nebulizer NEBULIZER FOR HOME USE. PHYSICAL EXAMINATION: VITAL SIGNS: BP 133/85 Pulse 68 Wt 239 lb 6.4 oz (108.6kg) Chest: Clear to auscultation. Trachea is midline. Air entry is equal. Cardiac: Regular rhythm. S1 and S2 are normal. PMI is nondisplaced. There is a soft aortic flow murmur. Carotids are brisk without bruits. JVP is less than 10 cm. Abdomen: Soft and nontender. There are no pulsatile masses or bruits. No liver enlargement. Bowel sounds are active. Extremities: Trace edema. Pulses are intact and symmetrical. EKG shows sinus rhythm and is within normal limits. Since prior study, the atrial flutter has resolved. No recent labs are available. Electronically Signed: Adriano Montes MD March 12, 2018 4:29 PM CC: Levon Earl MD Referring Provider: ADRIANO MONTES [[id number]] Allergies As of Date: 03/12/2018 Noted Allergy Reaction PREDNISONE 02/27/2011 9 - Itching Date Reviewed: 03/12/2018 Reviewed by: Melly Gonzalez - Fully Assessed Reason for Visit: Recheck [92] Primary Visit Diagnosis:Atypical atrial flutter (HCC) [I48.4] Other Visit Diagnosis:Hypertension, essential [I10] Order(s):ECG COMPLETE W INTERPRETATION [ECG01] Order #: [id number] FUTURE CBC [SQCBC] Order #: [id number] FUTURE BMP PLUS FHC [SQPICBMP] Order #: [id number] FUTURE LIPID PANEL, NONFASTING [SQLIPNF] Order #: [id number] FUTURE Prescriptions as of 03/12/2018 Sig: WARFARIN 5 MG TABLET take 5mg tablet on Saturday,Sat* HYDROCODONE 5 MG-ACETAMINOPHE* Take 1 tablet by mouth twice * OMEPRAZOLE 20 MG CAPSULE,ALIYAH* Take 1 capsule by mouth daily* ATORVASTATIN 40 MG TABLET Take 1 tablet by mouth once d* NITROGLYCERIN 0.4 MG SUBLINGU* Dissolve 1 tablet under the t* LISINOPRIL 10 MG TABLET TAKE 1 TABLET BY MOUTH EVERY * AMITRIPTYLINE 25 MG TABLET TAKE 1 TABLET BY MOUTH AT BED* LEVOTHYROXINE 150 MCG TABLET TAKE 1 TABLET BY MOUTH EVERY * ALBUTEROL SULFATE 2.5 MG/3 ML* Use 3 mL via nebulizer every * COMPOUNDED PRESCRIPTION NEBULIZER FOR HOME USE. Problem List As Of Date 03/12/2018 Noted Resolved Esophageal reflux [K21.9] Internal hemorrhoids without mention of complic*INVALID FOR*01/02/2017 Tobacco use disorder [F17.200] INVALID FOR*09/04/2011 Chronic airway obstruction, not elsewhere class*INVALID FOR*02/03/2014 Hypothyroidism [E03.9] INVALID FOR* GYNECOMASTIA [N62] INVALID FOR*11/04/2008 Unspecified sleep apnea [G47.30] INVALID FOR*06/09/2013 More... 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 SCREENING FOR CONDITION NOS [Z13.9] INVALID FOR*11/04/2008 Obesity, unspecified [E66.9] INVALID FOR*06/08/2013 History of repair of aneurysm of abdominal aort*INVALID FOR* Lumbago [M54.5] INVALID FOR* More... Patient Noncompliance [Z91.19] INVALID FOR* Erectile dysfunction [N52.9] INVALID FOR*01/02/2017 Pulmonary embolism [I26.99] INVALID FOR*01/06/2013 More... Atrial flutter [I48.92] INVALID FOR*12/31/2017 More... Atrial fibrillation [I48.91] INVALID FOR* Cervicalgia [M54.2] INVALID FOR*04/13/2013 Headache [R51] INVALID FOR*04/13/2013 SUMMARY [V999.95] INVALID FOR*02/03/2014 Priority: Very Severe More... History of pulmonary embolism [Z86.711] INVALID FOR*01/02/2017 More... History of smoking [Z87.891] INVALID FOR*06/09/2013 Priority: C More... Hyperlipidemia [E78.5] INVALID FOR* More... Atelectasis [J98.11] INVALID FOR*02/03/2014 Priority: B More... Hypertension [I10] INVALID FOR* Hypovolemia [E86.1] INVALID FOR*06/15/2013 Priority: F More... VANIA (obstructive sleep apnea) AHI 71 [G47.33] INVALID FOR* Obesity [E66.9] INVALID FOR* Nasal congestion [R09.81] INVALID FOR*08/27/2016 Visual impairment in both eyes [H54.3] INVALID FOR*08/27/2016 Physical deconditioning, multifactorial dyspnea*INVALID FOR*08/27/2016 Lumbar spondylosis [M47.816] INVALID FOR*12/31/2017 DDD (degenerative disc disease), lumbar [M51.36]INVALID FOR*12/31/2017 Sciatica [M54.30] INVALID FOR*08/27/2016 Sebaceous cyst [L72.3] INVALID FOR*01/02/2017 Bronchitis [J40] INVALID FOR* Rosacea [L71.9] INVALID FOR* Other instructions from your clinician: LIFESTYLE CHANGE A healthy lifestyle is the most important component of your overall treatment plan. 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 EAT A WHOLE FOOD, PLANT BASED DIET The nutrition your body gets is more important than the medicine you take. What matters most is the overall way you eat. We encourage you to minimize the use of animal products (which include dairy and all meats except fatty fish) and use whole, unprocessed plant foods to provide your protein, vitamins and other nutrients. We have a lot of information to share with you on this topic. This is not a diet. It is a way of life that you will keep with you. EXERCISE REGULARLY It is not important to spend hours in the gym, lifting weights and perspiring heavily. A total of 2-3 hours per week of aerobic (causing you to be moderately short of breath) exercise is sufficient to improve your health. Talk to us before you begin a new exercise program, if you have heart disease or experience shortness of breath or chest pain. REDUCE STRESS Chronic emotional and physical stress leads to disease. Ways of reducing stress include meditation, visualization, prayer, yoga and other forms of relaxation therapy. Consistency is the elaine. Find a technique that works for you and do it every day. CULTIVATE RELATIONSHIPS Loneliness and isolation have a major negative impact on health. Seek out others who can love, care for and nurture you. Avoid hurtful relationships. MAINTAIN IDEAL BODY WEIGHT The best way to do this is to do all the things above. Our bodies naturally find the right weight if we keep moving and feed ourselves the right food. If your BMI is greater than 25, we strongly recommend a referral to a weight management program. Please speak to us or your family physician about available programs. AVOID NICOTINE IN ALL FORMS This includes all tobacco products, whether chewed, smoked, vaped, or rubbed on the skin. Smoking cessation programs, which can make use of tobacco substitutes, medications to suppress cravings and behavior management, are available. Please contact your family physician about programs in your area. Encounter Status:Closed by ADRIANO MONTES MD on 03/12/18 EKG1 Observed: 03/12/2018 Status: F Source: [place] 3:45 PM [facility] REPOSITORY NAME : JENNIE MCCARTHY PID : [id number] : 1960 Gender : Male Race : ORD : Procedure Date : Mar 12 2018 15:45:32 Edit Date : Mar 13 2018 16:01:46 Diagnosis:NORMAL SINUS RHYTHM NONSPECIFIC T WAVE ABNORMALITY BORDERLINE ECG ATRIAL FLUTTER HAS RESOLVED Confirmed by ADRIANO MONTES MD ([id number]) on 03/13/2018 4:01:41 PM Ventricular Rate : 71 BPM Atrial Rate : 71 BPM P-R Interval : 196 ms QRS Duration : 92 ms Q-T Interval : 402 ms QTC Calculation(Bezet) : 436 ms P Felch : 49 degrees R Felch : 6 degrees T Felch : 61 degrees Test Reason : Location : 136 : [place] Overread By : ADRIANO MONTES MD Edited By : ADRIANO MONTES MD Referred By : ADRIANO MONTES Acquired by : CHARLES WANG Observed: 03/12/2018 Status: COMPLETED Source: [place] 3:15 PM [facility] REPOSITORY Nurse Visit (CAWSTR) JENNIE MCCARTHY ([id number]) 1960 M Date Time Provider Department 03/12/18 3:15 PM [facility] During your visit today, we recorded the following information about you: Trupti Canada RN 03/14/2018 4:02 PM Signed Ekg completed per order. Pt tolerated procedure without distress. Trupti Canada RN Referring Provider: ADRIANO MONTES [[id number]] Allergies As of Date: 03/12/2018 Noted Allergy Reaction PREDNISONE 02/27/2011 9 - Itching Date Reviewed: 03/12/2018 Reviewed by: Melly Gonzalez - Fully Assessed Reason for Visit: Nurse Visit [792] Visit Diagnoses:Atypical atrial flutter (HCC) [I48.4] Hypertension, essential [I10] Order(s):ECG COMPLETE W INTERPRETATION [ECG01] Order #: [id number] Prescriptions as of 03/12/2018 Sig: WARFARIN 5 MG TABLET take 5mg tablet on Saturday,Sat* X HYDROCODONE 5 MG-ACETAMINOPHE* Take 1 tablet by mouth twice * OMEPRAZOLE 20 MG CAPSULE,ALIYAH* Take 1 capsule by mouth daily* ATORVASTATIN 40 MG TABLET Take 1 tablet by mouth once d* NITROGLYCERIN 0.4 MG SUBLINGU* Dissolve 1 tablet under the t* LISINOPRIL 10 MG TABLET TAKE 1 TABLET BY MOUTH EVERY * AMITRIPTYLINE 25 MG TABLET TAKE 1 TABLET BY MOUTH AT BED* LEVOTHYROXINE 150 MCG TABLET TAKE 1 TABLET BY MOUTH EVERY * ALBUTEROL SULFATE 2.5 MG/3 ML* Use 3 mL via nebulizer every * COMPOUNDED PRESCRIPTION NEBULIZER FOR HOME USE. Problem List As Of Date 03/12/2018 Noted Resolved Esophageal reflux [K21.9] Internal hemorrhoids without mention of complic*INVALID FOR*01/02/2017 Tobacco use disorder [F17.200] INVALID FOR*09/04/2011 Chronic airway obstruction, not elsewhere class*INVALID FOR*02/03/2014 Hypothyroidism [E03.9] INVALID FOR* GYNECOMASTIA [N62] INVALID FOR*11/04/2008 Unspecified sleep apnea [G47.30] INVALID FOR*06/09/2013 More... 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 SCREENING FOR CONDITION NOS [Z13.9] INVALID FOR*11/04/2008 Obesity, unspecified [E66.9] INVALID FOR*06/08/2013 History of repair of aneurysm of abdominal aort*INVALID FOR* Lumbago [M54.5] INVALID FOR* More... Patient Noncompliance [Z91.19] INVALID FOR* Erectile dysfunction [N52.9] INVALID FOR*01/02/2017 Pulmonary embolism [I26.99] INVALID FOR*01/06/2013 More... Atrial flutter [I48.92] INVALID FOR*12/31/2017 More... Atrial fibrillation [I48.91] INVALID FOR* Cervicalgia [M54.2] INVALID FOR*04/13/2013 Headache [R51] INVALID FOR*04/13/2013 SUMMARY [V999.95] INVALID FOR*02/03/2014 Priority: Very Severe More... History of pulmonary embolism [Z86.711] INVALID FOR*01/02/2017 More... History of smoking [Z87.891] INVALID FOR*06/09/2013 Priority: C More... Hyperlipidemia [E78.5] INVALID FOR* More... Atelectasis [J98.11] INVALID FOR*02/03/2014 Priority: B More... Hypertension [I10] INVALID FOR* Hypovolemia [E86.1] INVALID FOR*06/15/2013 Priority: F More... VANIA (obstructive sleep apnea) AHI 71 [G47.33] INVALID FOR* Obesity [E66.9] INVALID FOR* Nasal congestion [R09.81] INVALID FOR*08/27/2016 Visual impairment in both eyes [H54.3] INVALID FOR*08/27/2016 Physical deconditioning, multifactorial dyspnea*INVALID FOR*08/27/2016 Lumbar spondylosis [M47.816] INVALID FOR*12/31/2017 DDD (degenerative disc disease), lumbar [M51.36]INVALID FOR*12/31/2017 Sciatica [M54.30] INVALID FOR*08/27/2016 Sebaceous cyst [L72.3] INVALID FOR*01/02/2017 Bronchitis [J40] INVALID FOR* Rosacea [L71.9] INVALID FOR* Visit Notes: >> Trupti Canada RN SatMar 12, 2018 4:02 PM Status: Signed Ekg completed per order. Pt tolerated procedure without distress. Trupti Canada RN Encounter Status:Closed by TRUPTI CANADA RN on 03/14/18 TOXICOLOGY SCREEN,UR Collected: 12/31/2017 Status: F Source: [place] 4:53 PM [facility] RE[facility] TYPE CODE TESTS RESULT OUT OF REFERENCE UNITS RANGE LAB UPCP2 Negative Negative Phencyclidin e, Urine Result Comment: Cutoff threshold at 25 ng/mL. LAB UBENZ2 Negative Benzodiazepines, Ur Negative Result Comment: Cutoff threshold at 200 ng/mL. LAB UCOC2 Negative Cocaine, Negative Urine Result Comment: Cutoff threshold at 300 ng/mL. LAB UAMPH2 Negative Amphetamines, Urine Negative Result Comment: Cutoff threshold at 1000 ng/mL. LAB UTHC2 Negative Cannabinoids, Abnormal Urine Preliminary Alert positive. Result Comment: Cutoff threshold at 50 ng/mL. LAB UOPI2 Negative Abnormal Preliminary Alert Opiates, Urine positive. Result Comment: Cutoff threshold at 300 ng/mL. LAB UBARB2 Negative Barbiturates, Urine Negative Result Comment: Cutoff threshold at 200 ng/mL. LAB UETOH <11 mg/dL <11 Ethanol, Urine LAB UOXYC Negative Oxycodone, Negative Urine Result Comment: Cutoff threshold at 100 ng/mL. Comment: Immunoassay screen only. Cross reactivity with other substances can occur with immunoassay screening. Detection of any drug(s) in this urine toxicology panel is presumptive only. These tests are for med ica purposes only and should not be used for compliance monitoring, legal, or forensic use. Samples should be within normal physiological conditions (e.g. pH). This assay does not include adulteration/specimen validity testing. In clinical settings, confirmatory testing is at the practitioner's discretion [1]. If clinically indicated, confirmation by high specificity, quantitative methodology, which includes adulteration/spec imen validity testing, may be requested on the same specimen through Client Services ([phone]) if contacted within 48 hours of initial testing. [1]Substance Abuse and Mental Health Services Administration (2012). Clinical Drug Testing in Primary Care Technical Assistance Publication Series 32. Department of Health and Human Services, [place], p.10. These tests were developed and their performance characteristics determined by [facility]'s [facility] [place] ( [facility]). They have not been cleared or a pproved by the FDA. [facility] is regulated under CLIA as qualified to perform high complexity testing. These tests are used for clinical purposes. They should not be regarded as investigational or for research. Performed By: #### [email or web address] #### [facility] [address] [place], [place] [address] PROTIME Collected: 12/31/2017 Status: F Source: [place] 4:39 PM [facility] REPOSITORY TYPE CODE TESTS RESULT OUT OF RANGE REFERENCE UNITS LAB PSEC 9.7-13.0 sec High PT Sec 15.7 LAB INR 0.9-1.3 High PT INR 1.6 Result Comment: Vitamin K Antagonist (VKA) Therapeutic Range: INR 2 to 3 (Target INR of 2.5) Note: For patients treated with VKA drugs, such as warfarin, the [employer] [employer] 2012 Guideline recommends a therapeutic INR range of 2 to 3 (target INR of 2.5). This recommendation includes high-risk patients with antiphospholipid syndrome with previous arterial or venous thromboembolism, current-generation mechanical or bioprosthetic aortic heart valve replacement. Note: Patients with mechanical aortic valve replacement and additional risk factors for thromboembolic events (atrial fibrillation, previous thromboembolism, LV dysfunction, hypercoagulable conditions) or an older generation mechanical AVR (i.e., ball in-Cage) or any mechanical MVR should have a INR therapeutic range of 2.5 to 3.5 (target INR of 3). Lili GH, et al. Chest 2012, 141:7S-47S Alcira RA, et al. JACC 2017, 70: 252-289 Performed By: #### PT #### [facility] [address] [place], [place] [address] PROGRESS Observed: 12/31/2017 Status: COMPLETED Source: [place] 4:20 PM [facility] REPOSITORY HNO ID: [id number] Author: Levon Earl Service: (none) Author Type: Physician Type: Progress Notes Filed: 12/31/2017 4:45 PM Note Text: This note was created using [email or web address]. Subjective Jennie Mccarthy is a 57 year old male here for follow up. His chronic low back pains were stable. He was taking hydrocodone daily which helped with activities of daily living. He took this daily without fail, even today. His refills have been consistent, and he denied side effects. Pain management injections did not help last year. His atrial fibrillation was anticoagulated, but he had no INR recently. He denied bleeding symptoms. His hypertension was controlled. Lipids were controlled. Review of Systems Constitutional: Negative. Respiratory: Negative. Cardiovascular: Negative. Gastrointestinal: Negative. Genitourinary: Negative. Musculoskeletal: Positive for back pain. ACTIVE PROBLEM LIST Esophageal Reflux Hypothyroidism History of Repair of Aneurysm of Abdominal Aorta Using Endovascular Stent Graft Lumbago Patient Noncompliance Atrial Fibrillation (Hcc) Hyperlipidemia Hypertension VANIA (obstructive sleep apnea) AHI 71 Obesity Bronchitis Rosacea Current Outpatient Prescriptions: [START ON 01/10/2018] HYDROcodone-acetaminophen (NORCO) 5-325 mg per tablet Take 1 tablet by mouth twice daily for 30 days.Earliest Fill Date: 01/10/18 warfarin (COUMADIN) 5 mg tablet take 5mg tablet on Saturday,Saturday,Saturday, and Saturday,then 7.5mg tablet on Saturday and Saturday or as directed atorvastatin (LIPITOR) 40 mg tablet Take 1 tablet by mouth once daily. nitroglycerin sublingual (NITROQUICK) 0.4 mg SL tablet Dissolve 1 tablet under the tongue as needed. FOR CHEST PAIN. IF NO RELIEF CALL 911 lisinopril (ZESTRIL, PRINIVIL) 10 mg tablet TAKE 1 TABLET BY MOUTH EVERY DAY amitriptyline (ELAVIL) 25 mg tablet TAKE 1 TABLET BY MOUTH AT BEDTIME levothyroxine (SYNTHROID) 150 mcg tablet TAKE 1 TABLET BY MOUTH EVERY DAY ON EMPTY STOMACH FOR THYROID albuterol (PROVENTIL) 2.5 mg /3 mL (0.083 %) nebulizer solution Use 3 mL via nebulizer every 4 hours as needed for Wheezing/Shortness of Breath. Use over 5-15minutes. Nebulizer NEBULIZER FOR HOME USE. omeprazole (PRILOSEC) 20 mg capsule Take 1 capsule by mouth daily before breakfast. 1/2 hr before meal. For heartburn. No current facility-administered medications for this visit. Objective BP 127/78 (BP Site: Left Arm, BP Position: Sitting, BP Cuff Size: Regular Adult) Pulse (!) 53 Temp 36.6 ?C (97.8 ?F) (Left Tympanic) Resp 20 Wt 107 kg (236 lb) BMI 35.36 kg/m? Physical Exam Constitutional: No distress. Cardiovascular: Normal rate, regular rhythm, S1 normal and S2 normal. Exam reveals no gallop. No murmur heard. Pulmonary/Chest: He has no wheezes. He has rhonchi. He has no rales. Abdominal: Soft. There is no tenderness. Musculoskeletal: He exhibits no edema. Neurological: He is alert. Coordination normal. Ambulatory. Assessment and Plan 1. Chronic midline low back pain without sciatica - ICD9: 724.2, 338.29, ICD10: M54.5, G89.29 (primary diagnosis) - HYDROCODONE 5 MG-ACETAMINOPHEN 325 MG TABLET - TOX SCREEN ROUT UR 2. Gastroesophageal reflux disease, esophagitis presence not specified - ICD9: 530.81, ICD10: K21.9 - Continue treatment with OMEPRAZOLE 20 MG CAPSULE,DELAYED RELEASE 3. Atrial fibrillation, unspecified type (HCC) - ICD9: 427.31, ICD10: I48.91 Controlled. See printed instructions or information. 4. Essential hypertension - ICD9: 401.9, ICD10: I10 - good control - Continue current medication(s) - Discussed need and benefit for weight loss. 5. Encounter for long-term (current) use of high-risk medication - ICD9: V58.69, ICD10: Z79.899 - TOX SCREEN ROUT UR 6. Bronchitis - ICD9: 490, ICD10: J40 Use nebulizer. 7. History of repair of aneurysm of abdominal aorta using endovascular stent graft - ICD9: V43.4, ICD10: Z95.828 Stable. Levno Earl MD CNOV Observed: 12/31/2017 Status: COMPLETED Source: [place] 3:40 PM [facility] REPOSITORY Office Visit (INTMWS) JENNIE MCCARTHY ([id number]) 1960 M Date Time Provider Department 12/31/17 3:40 PM LEVON EARL INTMWS During your visit today, we recorded the following information about you: Temperature Pulse Respiration Blood pressure 97.8 degrees 53/minute 20/minute 127/78 Weight 107 kg Levon Earl MD 12/31/2017 4:45 PM Signed This note was created using [employer]. Subjective Jennie Mccarthy is a 57 year old male here for follow up. His chronic low back pains were stable. He was taking hydrocodone daily which helped with activities of daily living. He took this daily without fail, even today. His refills have been consistent, and he denied side effects. Pain management injections did not help last year. His atrial fibrillation was anticoagulated, but he had no INR recently. He denied bleeding symptoms. His hypertension was controlled. Lipids were controlled. Review of Systems Constitutional: Negative. Respiratory: Negative. Cardiovascular: Negative. Gastrointestinal: Negative. Genitourinary: Negative. Musculoskeletal: Positive for back pain. ACTIVE PROBLEM LIST Esophageal Reflux Hypothyroidism History of Repair of Aneurysm of Abdominal Aorta Using Endovascular Stent Graft Lumbago Patient Noncompliance Atrial Fibrillation (Hcc) Hyperlipidemia Hypertension VANIA (obstructive sleep apnea) AHI 71 Obesity Bronchitis Rosacea Current Outpatient Prescriptions: [START ON 01/10/2018] HYDROcodone-acetaminophen (NORCO) 5-325 mg per tablet Take 1 tablet by mouth twice daily for 30 days.Earliest Fill Date: 01/10/18 warfarin (COUMADIN) 5 mg tablet take 5mg tablet on Saturday,Saturday,Saturday, and Saturday,then 7.5mg tablet on Saturday and Saturday or as directed atorvastatin (LIPITOR) 40 mg tablet Take 1 tablet by mouth once daily. nitroglycerin sublingual (NITROQUICK) 0.4 mg SL tablet Dissolve 1 tablet under the tongue as needed. FOR CHEST PAIN. IF NO RELIEF CALL 911 lisinopril (ZESTRIL, PRINIVIL) 10 mg tablet TAKE 1 TABLET BY MOUTH EVERY DAY amitriptyline (ELAVIL) 25 mg tablet TAKE 1 TABLET BY MOUTH AT BEDTIME levothyroxine (SYNTHROID) 150 mcg tablet TAKE 1 TABLET BY MOUTH EVERY DAY ON EMPTY STOMACH FOR THYROID albuterol (PROVENTIL) 2.5 mg /3 mL (0.083 %) nebulizer solution Use 3 mL via nebulizer every 4 hours as needed for Wheezing/Shortness of Breath. Use over 5-15minutes. Nebulizer NEBULIZER FOR HOME USE. omeprazole (PRILOSEC) 20 mg capsule Take 1 capsule by mouth daily before breakfast. 1/2 hr before meal. For heartburn. No current facility-administered medications for this visit. Objective BP 127/78 (BP Site: Left Arm, BP Position: Sitting, BP Cuff Size: Regular Adult) Pulse (!) 53 Temp 36.6 ?C (97.8 ?F) (Left Tympanic) Resp 20 Wt 107 kg (236 lb) BMI 35.36 kg/m? Physical Exam Constitutional: No distress. Cardiovascular: Normal rate, regular rhythm, S1 normal and S2 normal. Exam reveals no gallop. No murmur heard. Pulmonary/Chest: He has no wheezes. He has rhonchi. He has no rales. Abdominal: Soft. There is no tenderness. Musculoskeletal: He exhibits no edema. Neurological: He is alert. Coordination normal. Ambulatory. Assessment and Plan 1. Chronic midline low back pain without sciatica - ICD9: 724.2, 338.29, ICD10: M54.5, G89.29 (primary diagnosis) - HYDROCODONE 5 MG-ACETAMINOPHEN 325 MG TABLET - TOX SCREEN ROUT UR 2. Gastroesophageal reflux disease, esophagitis presence not specified - ICD9: 530.81, ICD10: K21.9 - Continue treatment with OMEPRAZOLE 20 MG CAPSULE,DELAYED RELEASE 3. Atrial fibrillation, unspecified type (HCC) - ICD9: 427.31, ICD10: I48.91 Controlled. See printed instructions or information. 4. Essential hypertension - ICD9: 401.9, ICD10: I10 - good control - Continue current medication(s) - Discussed need and benefit for weight loss. 5. Encounter for long-term (current) use of high-risk medication - ICD9: V58.69, ICD10: Z79.899 - TOX SCREEN ROUT UR 6. Bronchitis - ICD9: 490, ICD10: J40 Use nebulizer. 7. History of repair of aneurysm of abdominal aorta using endovascular stent graft - ICD9: V43.4, ICD10: Z95.828 Stable. MD Levon Soriano MD 12/31/2017 4:31 PM Signed Do INR at the lab today. Referring Provider: SELF [[id number]] Allergies As of Date: 12/31/2017 Noted Allergy Reaction PREDNISONE 02/27/2011 9 - Itching Date Reviewed: 12/31/2017 Reviewed by: Dianelys Cruz LPN - Fully Assessed Reason for Visit: F/U 3 Month [443] Primary Visit Diagnosis:Chronic midline low back pain without sciatica [M54.5, G89.29] Other Visit Diagnoses:Gastroesophageal reflux disease, esophagitis presence not specified [K21.9] Atrial fibrillation, unspecified type (HCC) [I48.91] Essential hypertension [I10] Encounter for long-term (current) use of high-risk medication [Z79.899] Bronchitis [J40] History of repair of aneurysm of abdominal aorta using endovascular stent graft [Z95.828] Order(s):omeprazole (PRILOSEC) 20 mg capsuleTake 1 capsule by mouth daily before breakfast. 1/2 hr before meal. For heartburn.Disp: 90 capsuleRfl: 3 [START ON 01/10/2018] HYDROcodone-acetaminophen (NORCO) 5-325 mg per tabletTake 1 tablet by mouth twice daily for 30 days. Earliest Fill Date: 01/10/18Disp: 60 tabletRfl: 0 TOX SCREEN ROUT UR [SQUTOX2] Order #: [id number] FUTURE Prescriptions as of 12/31/2017 Sig: HYDROCODONE 5 MG-ACETAMINOPHE* Take 1 tablet by mouth twice * WARFARIN 5 MG TABLET take 5mg tablet on Saturday,Sat* ATORVASTATIN 40 MG TABLET Take 1 tablet by mouth once d* NITROGLYCERIN 0.4 MG SUBLINGU* Dissolve 1 tablet under the t* LISINOPRIL 10 MG TABLET TAKE 1 TABLET BY MOUTH EVERY * AMITRIPTYLINE 25 MG TABLET TAKE 1 TABLET BY MOUTH AT BED* LEVOTHYROXINE 150 MCG TABLET TAKE 1 TABLET BY MOUTH EVERY * ALBUTEROL SULFATE 2.5 MG/3 ML* Use 3 mL via nebulizer every * COMPOUNDED PRESCRIPTION NEBULIZER FOR HOME USE. OMEPRAZOLE 20 MG CAPSULE,ALIYAH* Take 1 capsule by mouth daily* Problem List As Of Date 12/31/2017 Noted Resolved Esophageal reflux [K21.9] Internal hemorrhoids without mention of complic*INVALID FOR*01/02/2017 Tobacco use disorder [F17.200] INVALID FOR*09/04/2011 Chronic airway obstruction, not elsewhere class*INVALID FOR*02/03/2014 Hypothyroidism [E03.9] INVALID FOR* GYNECOMASTIA [N62] INVALID FOR*11/04/2008 Unspecified sleep apnea [G47.30] INVALID FOR*06/09/2013 More... 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 SCREENING FOR CONDITION NOS [Z13.9] INVALID FOR*11/04/2008 Obesity, unspecified [E66.9] INVALID FOR*06/08/2013 History of repair of aneurysm of abdominal aort*INVALID FOR* Lumbago [M54.5] INVALID FOR* More... Patient Noncompliance [Z91.19] INVALID FOR* Erectile dysfunction [N52.9] INVALID FOR*01/02/2017 Pulmonary embolism [I26.99] INVALID FOR*01/06/2013 More... Atrial flutter [I48.92] INVALID FOR*12/31/2017 More... Atrial fibrillation [I48.91] INVALID FOR* Cervicalgia [M54.2] INVALID FOR*04/13/2013 Headache [R51] INVALID FOR*04/13/2013 SUMMARY [V999.95] INVALID FOR*02/03/2014 Priority: Very Severe More... History of pulmonary embolism [Z86.711] INVALID FOR*01/02/2017 More... History of smoking [Z87.891] INVALID FOR*06/09/2013 Priority: C More... Hyperlipidemia [E78.5] INVALID FOR* More... Atelectasis [J98.11] INVALID FOR*02/03/2014 Priority: B More... Hypertension [I10] INVALID FOR* Hypovolemia [E86.1] INVALID FOR*06/15/2013 Priority: F More... VANIA (obstructive sleep apnea) AHI 71 [G47.33] INVALID FOR* Obesity [E66.9] INVALID FOR* Nasal congestion [R09.81] INVALID FOR*08/27/2016 Visual impairment in both eyes [H54.3] INVALID FOR*08/27/2016 Physical deconditioning, multifactorial dyspnea*INVALID FOR*08/27/2016 Lumbar spondylosis [M47.816] INVALID FOR*12/31/2017 DDD (degenerative disc disease), lumbar [M51.36]INVALID FOR*12/31/2017 Sciatica [M54.30] INVALID FOR*08/27/2016 Sebaceous cyst [L72.3] INVALID FOR*01/02/2017 Bronchitis [J40] INVALID FOR* Rosacea [L71.9] INVALID FOR* Other instructions from your clinician: Do INR at the lab today. Prescriptions ordered this encounter Disp Refills Start End OMEPRAZOLE 20 MG CAPSULE,DELAYED REL* 90 c* 3 12/31/2017 Route: ORAL Sig: Take 1 capsule by mouth daily before breakfast. 1/2 hr before meal. For heartburn. HYDROCODONE 5 MG-ACETAMINOPHEN 325 M* 60 t* 0 01/10/2018 02/09/2018 Class: Print RX Route: ORAL Sig: Take 1 tablet by mouth twice daily for 30 days. Earliest Fill Date: 01/10/18 Medications Discontinued During This Encounter Azelaic Acid (FINACEA) 15 % gel 45 g 5 04/18/2017 12/31/2017 Route: TOPICAL Sig: Apply 1 application to affected area twice daily. Apply to affected areas on the face, avoiding eyes and lips. Patient not taking: Reported on 12/31/2017 Disc: Reason for discontinue is not on file. omeprazole (PRILOSEC) 20 mg capsule 90 c* 3 01/02/2017 12/31/2017 Route: ORAL Sig: Take 1 capsule by mouth daily before breakfast. 1/2 hr before meal. For heartburn. Patient not taking: Reported on 12/31/2017 Disc: Reason for discontinue is not on file. HYDROcodone-acetaminophen (NORCO) 5-* 60 t* 0 12/10/2017 12/31/2017 Class: Print RX Route: ORAL Sig: Take 1 tablet by mouth twice daily for 30 days. Earliest Fill Date: 12/10/17 Disc: Reason for discontinue is not on file. Disposition: Return in about 3 months (around 04/02/2018). Follow-up and Disposition History Recorded Encounter Status:Closed by LEVON EARL MD on 12/31/17 PROGRESS Observed: 12/10/2017 Status: COMPLETED Source: [place] 2:20 PM [facility] REPOSITORY HNO ID: [id number] Author: Kamini (Pickle Solution Maker) Older Service: (none) Author Type: Nurse Practitioner Type: Progress Notes Filed: 12/10/2017 2:23 PM Note Text: CC: Patient presents with: Suture Removal HPI Jennie Mccarthy is a 57 year old male who presents today for suture removal. Patient was bit by a dog on 12/03, laceration to left thumb closed with 4 sutures in ER. Denies swelling, redness, drainage, fever, chills. 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 - Erectile dysfunction 02/27/2011 - Esophageal reflux Gastroesophageal reflux - Fatty liver - GYNECOMASTIA 11/08/2006 - Hemorrhage of rectum and anus 12/25/2009 bleeding hemorrhoids - Hiatal hernia - Hypertension 06/12/2013 - Obesity, unspecified 11/04/2008 - Obstructive sleep apnea - Other and unspecified hyperlipidemia 11/05/2006 - Other emphysema (HCC) Emphysema - Pulmonary embolism (HCC) 05/19/2011 - Substance abuse - Tobacco use disorder 10/24/2006 ex-smoker - Unspecified constipation Constipation - Unspecified hypothyroidism 11/05/2006 PAST SURGICAL HISTORY Procedure Laterality Date - ABD AORTA ANEURYSM REPAIR 06/12/2013 Abd Aortic Aneurysm Repair, Endovascular - COLONOSCOP W/ OR W/O BRSH SPEC 12/26/09 - COLONOSCOPY 2005 - HEMORRHOID;BAND LIGAT, SNGL/MUL November2004 - LAP CHOLECYSTECT/CHOLANGIOGRAPHY 07/07/07 - REMOVAL OF TONSILS,<12 Y/O Tonsillectomy ALLERGIES Prednisone MEDICATIONS HYDROcodone-acetaminophen (NORCO) 5-325 mg per tablet Take 1 tablet by mouth twice daily for 30 days.Earliest Fill Date: 11/07/17 warfarin (COUMADIN) 5 mg tablet take 5mg tablet on Saturday,Saturday,Saturday, and Saturday,then 7.5mg tablet on Saturday and Saturday or as directed atorvastatin (LIPITOR) 40 mg tablet Take 1 tablet by mouth once daily. nitroglycerin sublingual (NITROQUICK) 0.4 mg SL tablet Dissolve 1 tablet under the tongue as needed. FOR CHEST PAIN. IF NO RELIEF CALL 911 Azelaic Acid (FINACEA) 15 % gel Apply 1 application to affected area twice daily. Apply to affected areas on the face, avoiding eyes and lips. lisinopril (ZESTRIL, PRINIVIL) 10 mg tablet TAKE 1 TABLET BY MOUTH EVERY DAY amitriptyline (ELAVIL) 25 mg tablet TAKE 1 TABLET BY MOUTH AT BEDTIME levothyroxine (SYNTHROID) 150 mcg tablet TAKE 1 TABLET BY MOUTH EVERY DAY ON EMPTY STOMACH FOR THYROID albuterol (PROVENTIL) 2.5 mg /3 mL (0.083 %) nebulizer solution Use 3 mL via nebulizer every 4 hours as needed for Wheezing/Shortness of Breath. Use over 5-15minutes. Nebulizer NEBULIZER FOR HOME USE. omeprazole (PRILOSEC) 20 mg capsule Take 1 capsule by mouth daily before breakfast. 1/2 hr before meal. For heartburn. FAMILY HISTORY Problem Relation Age of Onset - Pancreatic Cancer [OTHER] Father CArdiomegaly ( age 72) - Pneumonia [OTHER] Mother age 72 - aneursm repair [OTHER] Mother - Aneurysm Brother Lung Cancer ( age 60's) - Heart Brother PR x 2 - aneurysm repair [OTHER] Brother Social History Substance Use Topics - Smoking status: Current Every Day Smoker Packs/day: 1.00 Years: 35.00 Types: Cigarettes Last attempt to quit: 12/08/2009 - Smokeless tobacco: Former User Comment: 10 cig. per day - Alcohol use No PHYSICAL EXAM BP 135/93 Pulse 81 Temp 36.7 ?C (98.1 ?F) (Temporal Artery) Resp 14 Wt 105.1 kg (231 lb 9.6 oz) SpO2 94% BMI 34.70 kg/m? General Appearance: well appearing, in no acute distress, alert Left thumb: laceration well approximated. No erythema, drainage, swelling. 4 sutures removed without difficulty. ASSESSMENT/PLAN: 1. Visit for suture removal - ICD9: V58.32, ICD10: Z48.02 No signs of infection. Wound care reviewed Follow-up as needed for any signs of infection Prescription instructions reviewed with patient as applicable. Potential red flag symptoms discussed with the patient. Reviewed appropriate action plan to take if red flag symptoms occur. Patient agreeable to treatment plan. Kamini Granado APRN.CNP CNOV Observed: 12/10/2017 Status: COMPLETED Source: [place] 2:00 PM [facility] REPOSITORY Office Visit (INTMWS) JENNIE MCCARTHY ([id number]) 1960 M Date Time Provider Department 12/10/17 2:00 PM KAMINI GRANADO (EDWIN) INTMWS During your visit today, we recorded the following information about you: Temperature Pulse Respiration Blood pressure 98.1 degrees 81/minute 14/minute 135/93 Weight 105.1 kg Kamini Granado APRN.CNP 12/10/2017 2:23 PM Signed CC: Patient presents with: Suture Removal HPI Jennie Mccarthy is a 57 year old male who presents today for suture removal. Patient was bit by a dog on 12/03, laceration to left thumb closed with 4 sutures in ER. Denies swelling, redness, drainage, fever, chills. 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 - Erectile dysfunction 02/27/2011 - Esophageal reflux Gastroesophageal reflux - Fatty liver - GYNECOMASTIA 11/08/2006 - Hemorrhage of rectum and anus 12/25/2009 bleeding hemorrhoids - Hiatal hernia - Hypertension 06/12/2013 - Obesity, unspecified 11/04/2008 - Obstructive sleep apnea - Other and unspecified hyperlipidemia 11/05/2006 - Other emphysema (HCC) Emphysema - Pulmonary embolism (HCC) 05/19/2011 - Substance abuse - Tobacco use disorder 10/24/2006 ex-smoker - Unspecified constipation Constipation - Unspecified hypothyroidism 11/05/2006 PAST SURGICAL HISTORY Procedure Laterality Date - ABD AORTA ANEURYSM REPAIR 06/12/2013 Abd Aortic Aneurysm Repair, Endovascular - COLONOSCOP W/ OR W/O BRSH SPEC 12/26/09 - COLONOSCOPY 2005 - HEMORRHOID;BAND LIGAT, SNGL/MUL November2004 - LAP CHOLECYSTECT/CHOLANGIOGRAPHY 07/07/07 - REMOVAL OF TONSILS,<12 Y/O Tonsillectomy ALLERGIES Prednisone MEDICATIONS HYDROcodone-acetaminophen (NORCO) 5-325 mg per tablet Take 1 tablet by mouth twice daily for 30 days.Earliest Fill Date: 11/07/17 warfarin (COUMADIN) 5 mg tablet take 5mg tablet on Saturday,Saturday,Saturday, and Saturday,then 7.5mg tablet on Saturday and Saturday or as directed atorvastatin (LIPITOR) 40 mg tablet Take 1 tablet by mouth once daily. nitroglycerin sublingual (NITROQUICK) 0.4 mg SL tablet Dissolve 1 tablet under the tongue as needed. FOR CHEST PAIN. IF NO RELIEF CALL 911 Azelaic Acid (FINACEA) 15 % gel Apply 1 application to affected area twice daily. Apply to affected areas on the face, avoiding eyes and lips. lisinopril (ZESTRIL, PRINIVIL) 10 mg tablet TAKE 1 TABLET BY MOUTH EVERY DAY amitriptyline (ELAVIL) 25 mg tablet TAKE 1 TABLET BY MOUTH AT BEDTIME levothyroxine (SYNTHROID) 150 mcg tablet TAKE 1 TABLET BY MOUTH EVERY DAY ON EMPTY STOMACH FOR THYROID albuterol (PROVENTIL) 2.5 mg /3 mL (0.083 %) nebulizer solution Use 3 mL via nebulizer every 4 hours as needed for Wheezing/Shortness of Breath. Use over 5-15minutes. Nebulizer NEBULIZER FOR HOME USE. omeprazole (PRILOSEC) 20 mg capsule Take 1 capsule by mouth daily before breakfast. 1/2 hr before meal. For heartburn. FAMILY HISTORY Problem Relation Age of Onset - Pancreatic Cancer [OTHER] Father CArdiomegaly ( age 72) - Pneumonia [OTHER] Mother age 72 - aneursm repair [OTHER] Mother - Aneurysm Brother Lung Cancer ( age 60's) - Heart Brother PR x 2 - aneurysm repair [OTHER] Brother Social History Substance Use Topics - Smoking status: Current Every Day Smoker Packs/day: 1.00 Years: 35.00 Types: Cigarettes Last attempt to quit: 12/08/2009 - Smokeless tobacco: Former User Comment: 10 cig. per day - Alcohol use No PHYSICAL EXAM BP 135/93 Pulse 81 Temp 36.7 ?C (98.1 ?F) (Temporal Artery) Resp 14 Wt 105.1 kg (231 lb 9.6 oz) SpO2 94% BMI 34.70 kg/m? General Appearance: well appearing, in no acute distress, alert Left thumb: laceration well approximated. No erythema, drainage, swelling. 4 sutures removed without difficulty. ASSESSMENT/PLAN: 1. Visit for suture removal - ICD9: V58.32, ICD10: Z48.02 No signs of infection. Wound care reviewed Follow-up as needed for any signs of infection Prescription instructions reviewed with patient as applicable. Potential red flag symptoms discussed with the patient. Reviewed appropriate action plan to take if red flag symptoms occur. Patient agreeable to treatment plan. Kamini Granado APRN.RESEARCH INVESTIGATOR Referring Provider: SELF [200] Allergies As of Date: 12/10/2017 Noted Allergy Reaction PREDNISONE 02/27/2011 9 - Itching Date Reviewed: 12/10/2017 Reviewed by: Veronica Fishman Pepper Picker - Fully Assessed Reason for Visit: Suture Removal [105] Primary Visit Diagnosis:Visit for suture removal [Z48.02] Prescriptions as of 12/10/2017 Sig: HYDROCODONE 5 MG-ACETAMINOPHE* Take 1 tablet by mouth twice * WARFARIN 5 MG TABLET take 5mg tablet on Saturday,Sat* ATORVASTATIN 40 MG TABLET Take 1 tablet by mouth once d* NITROGLYCERIN 0.4 MG SUBLINGU* Dissolve 1 tablet under the t* AZELAIC ACID 15 % TOPICAL GEL Apply 1 application to affect* LISINOPRIL 10 MG TABLET TAKE 1 TABLET BY MOUTH EVERY * AMITRIPTYLINE 25 MG TABLET TAKE 1 TABLET BY MOUTH AT BED* LEVOTHYROXINE 150 MCG TABLET TAKE 1 TABLET BY MOUTH EVERY * ALBUTEROL SULFATE 2.5 MG/3 ML* Use 3 mL via nebulizer every * COMPOUNDED PRESCRIPTION NEBULIZER FOR HOME USE. OMEPRAZOLE 20 MG CAPSULE,ALIYAH* Take 1 capsule by mouth daily* Problem List As Of Date 12/10/2017 Noted Resolved Esophageal reflux [K21.9] Internal hemorrhoids without mention of complic*INVALID FOR*01/02/2017 Tobacco use disorder [F17.200] INVALID FOR*09/04/2011 Chronic airway obstruction, not elsewhere class*INVALID FOR*02/03/2014 Hypothyroidism [E03.9] INVALID FOR* GYNECOMASTIA [N62] INVALID FOR*11/04/2008 Unspecified sleep apnea [G47.30] INVALID FOR*06/09/2013 More... 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 SCREENING FOR CONDITION NOS [Z13.9] INVALID FOR*11/04/2008 Obesity, unspecified [E66.9] INVALID FOR*06/08/2013 AAA (abdominal aortic aneurysm) [I71.4] INVALID FOR* More... Lumbago [M54.5] INVALID FOR* More... Patient Noncompliance [Z91.19] INVALID FOR* Erectile dysfunction [N52.9] INVALID FOR*01/02/2017 Pulmonary embolism [I26.99] INVALID FOR*01/06/2013 More... Atrial flutter [I48.92] INVALID FOR* More... Atrial fibrillation [I48.91] INVALID FOR* Cervicalgia [M54.2] INVALID FOR*04/13/2013 Headache [R51] INVALID FOR*04/13/2013 SUMMARY [V999.95] INVALID FOR*02/03/2014 Priority: Very Severe More... History of pulmonary embolism [Z86.711] INVALID FOR*01/02/2017 More... History of smoking [Z87.891] INVALID FOR*06/09/2013 Priority: C More... Hyperlipidemia [E78.5] INVALID FOR* More... Atelectasis [J98.11] INVALID FOR*02/03/2014 Priority: B More... Hypertension [I10] INVALID FOR* Hypovolemia [E86.1] INVALID FOR*06/15/2013 Priority: F More... VANIA (obstructive sleep apnea) AHI 71 [G47.33] INVALID FOR* Obesity [E66.9] INVALID FOR* Nasal congestion [R09.81] INVALID FOR*08/27/2016 Visual impairment in both eyes [H54.3] INVALID FOR*08/27/2016 Physical deconditioning, multifactorial dyspnea*INVALID FOR*08/27/2016 Lumbar spondylosis [M47.816] INVALID FOR* DDD (degenerative disc disease), lumbar [M51.36]INVALID FOR* Sciatica [M54.30] INVALID FOR*08/27/2016 Sebaceous cyst [L72.3] INVALID FOR*01/02/2017 Bronchitis [J40] INVALID FOR* Rosacea [L71.9] INVALID FOR* Encounter Status:Closed by KAMINI GRANADO CNP on 12/10/17 EMERGENCY DEPARTMENT Observed: 12/03/2017 Status: F Source: [place] SUMMARY 4:39 AM [facility] [place] REPOSITORY [facility] Medical Records Department [address] [place] [address] Emergency Department Summary 12/03/17 0435 MR#: [id number] Acct: [id number] Name: JENNIE MCCARTHY Rep #: [id number] : 1960 57 From: Prabhakar Beckham MD PCP: Levon Earl MD Status: REG ER - ER Visit Summary Date of Service: 12/03/17 Chief Complaint: Dog bite History of Present Illness: The patient is a 57 M who was bitten by his neighbor's dog about 6 hours prior to the time of my evaluation. He was bitten on his left hand. He does have a laceration to left thumb. He complains of only mild pain. He denies paresthesias weakness or loss of function. Physical Examination: Afebrile vitals are stable he is hypertensive No distress Heart regular rate and rhythm Lungs are clear There is a 2-1/2 cm laceration of the left thumb he has active full range of motion normal distal sensation with brisk capillary refill Test Results: Not indicated Emergency Department Course and Treatment: Given the length of the laceration and the fact that it is gaping and pulls apart with movement I believe closure is necessary. Patient was anesthetized with a digital block the wound was irrigated with sterile saline and closed with 4 simple interrupted 4-0 absorbable sutures. He was given Augmentin and given a prescription for the same for antibiotic prophylaxis. He was instructed on local wound care. He was instructed on signs and symptoms of infection to monitor for and conditions which should prompt return here for reevaluation. He will otherwise follow-up with his primary care physician. All questions answered at bedside and he was discharged home. Treatment Plan: [] Disposition: Discharge Impression: Dog bite left thumb This note was generated with Olo dictation software. It may contain incorrect words, spelling, and punctuation that were not noted in review of the chart prior to signing ED Disposition - Plan for ED Patient: Chief Complaint: Bite Referrals: Levon Earl MD [Primary Care Provider] - What to do if you have Problems For any increased pain, shortness of breath, bleeding, nausea or vomiting, chest pain, or any unexpected problems, contact your Primary Care Provider. Call [facility] ([phone]) or report to the closest Emergency Room. Call 911 if necessary. 12/03/17438 <Electronically signed by Prabhakar Beckham MD> Date Prabhakar Beckham MD Cosigner Signature (If Indicated): Date CC: Levon Earl MD DISCHARGE INSTRUCTION Observed: 12/03/2017 Status: F Source: [place] 4:39 AM [facility] REPOSITORY [facility] Medical Records Department [address] [place] [address] Discharge Instruction 12/03/17438 MR#: [id number] Acct: [id number] Name: JENNIE MCCARTHY Rep #: [id number] : 1960 57 From: Prabhakar Beckham MD PCP: Levon Earl MD Status: REG ER ED Disposition - Plan for ED Patient: Chief Complaint: Bite Instructions: ED Bite Dog Prescriptions: Amox/Clavulanate Tablet [Augmentin Tablet] 875 mg PO Q12H #20 tab Referrals: Levon Earl MD [Primary Care Provider] - What to do if you have Problems For any increased pain, shortness of breath, bleeding, nausea or vomiting, chest pain, or any unexpected problems, contact your Primary Care Provider. Call [facility] ([phone]) or report to the closest Emergency Room. Call 911 if necessary. 12/03/17 0439 <Electronically signed by Prabhakar Beckham MD> Date Prabhakar Beckham MD Cosigner Signature (If Indicated): Date CC: Levon Earl MD CNPTOUTREACH Observed: 11/12/2017 Status: COMPLETED Source: [place] 12:00 AM [facility] REPOSITORY Patient Outreach (INTMWH) JENNIE MCCARTHY ([id number]) 1960 M Date Time Provider Department 11/12/17 LEVON EARL INTMWH During your visit today, we recorded the following information about you: Allergies As of Date: 11/12/2017 Noted Allergy Reaction PREDNISONE 02/27/2011 9 - Itching Date Reviewed: 08/26/2017 Reviewed by: Mary Ch Pepper Picker - Fully Assessed Visit Diagnosis:Medication management [Z79.899] Order(s):BASIC METABOLIC PNL [SQBMP] Order #: [id number] FUTURE Prescriptions as of 11/12/2017 Sig: X HYDROCODONE 5 MG-ACETAMINOPHE* Take 1 tablet by mouth twice * WARFARIN 5 MG TABLET take 5mg tablet on Saturday,Sat* ATORVASTATIN 40 MG TABLET Take 1 tablet by mouth once d* NITROGLYCERIN 0.4 MG SUBLINGU* Dissolve 1 tablet under the t* X AZELAIC ACID 15 % TOPICAL GEL Apply 1 application to affect* Patient not taking: Reported on 12/31/2017 LISINOPRIL 10 MG TABLET TAKE 1 TABLET BY MOUTH EVERY * AMITRIPTYLINE 25 MG TABLET TAKE 1 TABLET BY MOUTH AT BED* LEVOTHYROXINE 150 MCG TABLET TAKE 1 TABLET BY MOUTH EVERY * ALBUTEROL SULFATE 2.5 MG/3 ML* Use 3 mL via nebulizer every * COMPOUNDED PRESCRIPTION NEBULIZER FOR HOME USE. X OMEPRAZOLE 20 MG CAPSULE,ALIYAH* Take 1 capsule by mouth daily* Patient not taking: Reported on 12/31/2017 Problem List As Of Date 11/12/2017 Noted Resolved Esophageal reflux [K21.9] Internal hemorrhoids without mention of complic*INVALID FOR*01/02/2017 Tobacco use disorder [F17.200] INVALID FOR*09/04/2011 Chronic airway obstruction, not elsewhere class*INVALID FOR*02/03/2014 Hypothyroidism [E03.9] INVALID FOR* GYNECOMASTIA [N62] INVALID FOR*11/04/2008 Unspecified sleep apnea [G47.30] INVALID FOR*06/09/2013 More... 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 SCREENING FOR CONDITION NOS [Z13.9] INVALID FOR*11/04/2008 Obesity, unspecified [E66.9] INVALID FOR*06/08/2013 AAA (abdominal aortic aneurysm) [I71.4] INVALID FOR* Lumbago [M54.5] INVALID FOR* More... Patient Noncompliance [Z91.19] INVALID FOR* Erectile dysfunction [N52.9] INVALID FOR*01/02/2017 Pulmonary embolism [I26.99] INVALID FOR*01/06/2013 More... Atrial flutter [I48.92] INVALID FOR* More... Atrial fibrillation [I48.91] INVALID FOR* Cervicalgia [M54.2] INVALID FOR*04/13/2013 Headache [R51] INVALID FOR*04/13/2013 SUMMARY [V999.95] INVALID FOR*02/03/2014 Priority: Very Severe More... History of pulmonary embolism [Z86.711] INVALID FOR*01/02/2017 More... History of smoking [Z87.891] INVALID FOR*06/09/2013 Priority: C More... Hyperlipidemia [E78.5] INVALID FOR* More... Atelectasis [J98.11] INVALID FOR*02/03/2014 Priority: B More... Hypertension [I10] INVALID FOR* Hypovolemia [E86.1] INVALID FOR*06/15/2013 Priority: F More... VANIA (obstructive sleep apnea) AHI 71 [G47.33] INVALID FOR* Obesity [E66.9] INVALID FOR* Nasal congestion [R09.81] INVALID FOR*08/27/2016 Visual impairment in both eyes [H54.3] INVALID FOR*08/27/2016 Physical deconditioning, multifactorial dyspnea*INVALID FOR*08/27/2016 Lumbar spondylosis [M47.816] INVALID FOR* DDD (degenerative disc disease), lumbar [M51.36]INVALID FOR* Sciatica [M54.30] INVALID FOR*08/27/2016 Sebaceous cyst [L72.3] INVALID FOR*01/02/2017 Bronchitis [J40] INVALID FOR* Rosacea [L71.9] INVALID FOR* Encounter Status:Closed by LEVON EARL MD on 02/12/18 PROGRESS Observed: 08/24/2017 Status: COMPLETED Source: [place] 6:11 PM [facility] REPOSITORY HNO ID: [id number] Author: Levon Earl Service: (none) Author Type: Physician Type: Progress Notes Filed: 08/24/2017 6:55 PM Note Text: This note was created using Mingle360riter. Subjective Jennie Mccarthy is a 56 year old male here for follow up and chronic pain medication refill. He had seen Dr. Angel for pain management. He had a series of pain injections, but no further follow up. He continued to request hydrocodone refills from here. Refill requests have been consistent. He indicated his chronic back pains were unchanged. He complained of running in his basement to close a water main, and hit his head in the low ceiling, knocking him down. This occurred 3-4 weeks ago, and he did not seek medical attention. He denied loss of consciousness or headaches. He was complaining more of recurrent soreness in the neck and sharp pains radiating to his left shoulder mostly when lying down in certain positions. He also complained of recurring bilateral groin infections where he had incisions for aneurysm surgery. He described lumps that drained then resolved, as well as rash with itching. ACTIVE PROBLEM LIST Esophageal Reflux Hypothyroidism AAA (abdominal aortic aneurysm) Lumbago Patient Noncompliance Atrial flutter Atrial Fibrillation (Hcc) Hyperlipidemia Hypertension VANIA (obstructive sleep apnea) AHI 71 Obesity Lumbar Spondylosis Ddd (Degenerative Disc Disease), Lumbar Bronchitis Rosacea Review of Systems Constitutional: Negative. HENT: Negative for ear discharge, nosebleeds and rhinorrhea. Eyes: Negative. Respiratory: Negative. Cardiovascular: Negative. Genitourinary: Negative. Musculoskeletal: Positive for back pain and neck pain. Negative for gait problem. Neurological: Negative for dizziness, weakness, numbness and headaches. Objective BP 118/74 Pulse 72 Temp 37.3 ?C (99.2 ?F) Resp 20 Wt 105.7 kg (233 lb) BMI 34.91 kg/m2 Physical Exam Constitutional: No distress. HENT: Head: Atraumatic. Eyes: EOM are normal. Pupils are equal, round, and reactive to light. Neck: Full passive range of motion without pain. Muscular tenderness present. No spinous process tenderness present. Rigidity present. Normal range of motion present. Cardiovascular: Regular rhythm and normal heart sounds. Pulmonary/Chest: Breath sounds normal. Genitourinary: Genitourinary Comments: No nodules or wounds in groin. Mild tinea cruris bilaterally. Musculoskeletal: He exhibits no edema. Neurological: He is alert. He has normal strength. No cranial nerve deficit or sensory deficit. Gait normal. ASSESSMENT/PLAN: 1. Neck sprain, initial encounter - ICD9: 847.0, ICD10: S13.9XXA (primary diagnosis) Muscle relaxer ordered. Discussed medication dosage, usage, goals of therapy, and side effects. - BACLOFEN 10 MG TABLET 2. Chronic midline low back pain without sciatica - ICD9: 724.2, 338.29, ICD10: M54.5, G89.29 S/p back injections without relief. - Call for [place] refill towards the end of next week (Sep.01). 3. Atrial fibrillation, unspecified type (HCC) - ICD9: 427.31, ICD10: I48.91 INR due. Patient instructed to keep this current. 4. Hyperlipidemia, unspecified hyperlipidemia type - ICD9: 272.4, ICD10: E78.5 - to be determined upon return of lab results - Continue current medication. 5. Tinea cruris - ICD9: 110.3, ICD10: B35.6 - Keep area of concern very dry. Ok to use OTC antifungal powder if area is moist - Appointment for s/s of infection. Levon Earl MD OBSOLETE Observed: 08/19/2017 Status: COMPLETED Source: [place] 12:00 AM [facility] REPOSITORY Refill (AGCARDWST) JENNIE MCCARTHY ([id number]) 1960 M Date Time Provider Department 08/19/17 ADRIANO MONTES AGCCLARENCEWSMireya During your visit today, we recorded the following information about you: Alirio Hester RN, RN 08/19/2017 1:38 PM Signed Pharmacy fax requesting refills as follows: Pending Prescriptions Disp Refills ATORVASTATIN 40 MG TABLET 90 tablet 3 Sig: Take 1 tablet by mouth once daily. VINH: No Please review and advise. Alirio Hester RN Patient has been identified by name and date of : Yes Pending Prescriptions Disp Refills ATORVASTATIN 40 MG TABLET 90 tablet 3 Sig: Take 1 tablet by mouth once daily. VINH: No RX INSTRUCTIONS: Patient aware RX will be sent to pharmacy. No need to notify patient. LUPE Hodges MD 08/19/2017 1:45 PM Signed The following approved medication requests have been transmitted electronically. Signed Prescriptions Disp Refills atorvastatin (LIPITOR) 40 mg tablet 90 tablet 3 Sig: Take 1 tablet by mouth once daily. VINH: No Authorizing Provider: ADRIANO MONTES MD Adam Gilmor, RN, RN 08/19/2017 2:25 PM Signed escript confirmed Allergies As of Date: 08/19/2017 Noted Allergy Reaction PREDNISONE 02/27/2011 9 - Itching Date Reviewed: 07/26/2017 Reviewed by: Michell Martin RN - Fully Assessed Reason for Visit: Refill Request [94] Order(s):atorvastatin (LIPITOR) 40 mg tabletTake 1 tablet by mouth once daily.Disp: 90 tabletRfl: 3 Prescriptions as of 08/19/2017 Sig: ATORVASTATIN 40 MG TABLET Take 1 tablet by mouth once d* HYDROCODONE 5 MG-ACETAMINOPHE* Take 1 tablet by mouth twice * NITROGLYCERIN 0.4 MG SUBLINGU* Dissolve 1 tablet under the t* AZELAIC ACID 15 % TOPICAL GEL Apply 1 application to affect* LISINOPRIL 10 MG TABLET TAKE 1 TABLET BY MOUTH EVERY * AMITRIPTYLINE 25 MG TABLET TAKE 1 TABLET BY MOUTH AT BED* LEVOTHYROXINE 150 MCG TABLET TAKE 1 TABLET BY MOUTH EVERY * ALBUTEROL SULFATE 2.5 MG/3 ML* Use 3 mL via nebulizer every * COMPOUNDED PRESCRIPTION NEBULIZER FOR HOME USE. OMEPRAZOLE 20 MG CAPSULE,ALIYAH* Take 1 capsule by mouth daily* WARFARIN 5 MG TABLET Take 5mg Sat/Sat/Sat/Sat/Sat.* Problem List As Of Date 08/19/2017 Noted Resolved Esophageal reflux [K21.9] Internal hemorrhoids without mention of complic*INVALID FOR*01/02/2017 Tobacco use disorder [F17.200] INVALID FOR*09/04/2011 Chronic airway obstruction, not elsewhere class*INVALID FOR*02/03/2014 Hypothyroidism [E03.9] INVALID FOR* GYNECOMASTIA [N62] INVALID FOR*11/04/2008 Unspecified sleep apnea [G47.30] INVALID FOR*06/09/2013 More... 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 SCREENING FOR CONDITION NOS [Z13.9] INVALID FOR*11/04/2008 Obesity, unspecified [E66.9] INVALID FOR*06/08/2013 AAA (abdominal aortic aneurysm) [I71.4] INVALID FOR* More... Lumbago [M54.5] INVALID FOR* More... Patient Noncompliance [Z91.19] INVALID FOR* Erectile dysfunction [N52.9] INVALID FOR*01/02/2017 Pulmonary embolism [I26.99] INVALID FOR*01/06/2013 More... Atrial flutter [I48.92] INVALID FOR* More... Atrial fibrillation [I48.91] INVALID FOR* Cervicalgia [M54.2] INVALID FOR*04/13/2013 Headache [R51] INVALID FOR*04/13/2013 SUMMARY [V999.95] INVALID FOR*02/03/2014 Priority: Very Severe More... History of pulmonary embolism [Z86.711] INVALID FOR*01/02/2017 More... History of smoking [Z87.891] INVALID FOR*06/09/2013 Priority: C More... Hyperlipidemia [E78.5] INVALID FOR* More... Atelectasis [J98.11] INVALID FOR*02/03/2014 Priority: B More... Hypertension [I10] INVALID FOR* Hypovolemia [E86.1] INVALID FOR*06/15/2013 Priority: F More... VANIA (obstructive sleep apnea) AHI 71 [G47.33] INVALID FOR* Obesity [E66.9] INVALID FOR* Nasal congestion [R09.81] INVALID FOR*08/27/2016 Visual impairment in both eyes [H54.3] INVALID FOR*08/27/2016 Physical deconditioning, multifactorial dyspnea*INVALID FOR*08/27/2016 Lumbar spondylosis [M47.816] INVALID FOR* DDD (degenerative disc disease), lumbar [M51.36]INVALID FOR* Sciatica [M54.30] INVALID FOR*08/27/2016 Sebaceous cyst [L72.3] INVALID FOR*01/02/2017 Bronchitis [J40] INVALID FOR* Rosacea [L71.9] INVALID FOR* Prescriptions ordered this encounter Disp Refills Start End ATORVASTATIN 40 MG TABLET 90 t* 3 08/19/2017 Route: ORAL Sig: Take 1 tablet by mouth once daily. Medications Discontinued During This Encounter atorvastatin (LIPITOR) 40 mg tablet 30 t* 5 01/09/2017 08/19/2017 Route: ORAL Sig: Take 1 tablet by mouth once daily. Disc: Reason for discontinue is not on file. Encounter Status:Closed by ALIRIO HESTER on 08/19/17 OBSOLETE Observed: 07/30/2017 Status: COMPLETED Source: [place] 12:00 AM [facility] REPOSITORY Refill (INTMWS) JENNIE MCCARTHY ([id number]) 1960 M Date Time Provider Department 07/30/17 LEVON EARL INTMWS During your visit today, we recorded the following information about you: Angelica Quick 07/30/2017 4:53 PM Signed Patient has been identified by name and date of : Yes Pending Prescriptions Disp Refills HYDROCODONE 5 MG-ACETAMINOPHEN 325 MG TABLET 60 tablet 0 Sig: Take 1 tablet by mouth twice daily for 30 days. COY Class: C-II VINH: No RX INSTRUCTIONS: Print and leave at the Medical Records front line leader. No need to notify patient. Angelica Cruz LPN 07/30/2017 5:03 PM Signed Patient has been identified by name and date of : Yes Patient phones for refill(s): Pending Prescriptions Disp Refills HYDROCODONE 5 MG-ACETAMINOPHEN 325 MG TABLET 60 tablet 0 Sig: Take 1 tablet by mouth twice daily for 30 days.Earliest Fill Date: 07/30/17 COY Class: C-II VINH: No Date of last office visit in primary care: 04/04/2017 3 month f/u scheduled w/PCP: 09/12/2017 Last 2 Encounter Wt Readings: Date: Wt: 07/11/2017 108.2 kg (238 lb 9.6 oz) 04/04/2017 104.3 kg (230 lb) Previous labs/tests for medication: Not applicable Please advise. Thank you. Dianelys Dean RN 07/31/2017 1:45 PM Signed Patient calls in about this. Please notify when ready to pickle solution maker on 's phone number. Kamini Granado CNP 08/01/2017 7:34 AM Signed Patient's request for medication is as follows: Signed Prescriptions Disp Refills HYDROcodone-acetaminophen (NORCO) 5-325 mg per tablet 60 tablet 0 Sig: Take 1 tablet by mouth twice daily for 30 days.Earliest Fill Date: 08/01/17 COY Class: C-II VINH: No Authorizing Provider: KAMINI GRANADO (EDWIN) Prescription(s) printed as above. Please process accordingly. [employer] website checked and validated. All prescriptions have been APPROPRIATELY filled. No suspicious activity was identified.- 08/01/2017 by EDWIN Muñoz Cma 08/01/2017 9:17 AM Signed Prescription is in medical records for patient to pickle solution maker. Patient's is aware and will inform patient to pickle solution maker rx. Veronica Fishman Pepper Picker Allergies As of Date: 07/30/2017 Noted Allergy Reaction PREDNISONE 02/27/2011 9 - Itching Date Reviewed: 07/26/2017 Reviewed by: Michell Martin RN - Fully Assessed Reason for Visit: Refill Request [94] Visit Diagnosis:Chronic midline low back pain without sciatica [M54.5, G89.29] Order(s):HYDROcodone-acetaminophen (NORCO) 5-325 mg per tabletTake 1 tablet by mouth twice daily for 30 days. Earliest Fill Date: 08/01/17Disp: 60 tabletRfl: 0 Prescriptions as of 07/30/2017 Sig: HYDROCODONE 5 MG-ACETAMINOPHE* Take 1 tablet by mouth twice * NITROGLYCERIN 0.4 MG SUBLINGU* Dissolve 1 tablet under the t* AZELAIC ACID 15 % TOPICAL GEL Apply 1 application to affect* LISINOPRIL 10 MG TABLET TAKE 1 TABLET BY MOUTH EVERY * AMITRIPTYLINE 25 MG TABLET TAKE 1 TABLET BY MOUTH AT BED* LEVOTHYROXINE 150 MCG TABLET TAKE 1 TABLET BY MOUTH EVERY * ALBUTEROL SULFATE 2.5 MG/3 ML* Use 3 mL via nebulizer every * COMPOUNDED PRESCRIPTION NEBULIZER FOR HOME USE. ATORVASTATIN 40 MG TABLET Take 1 tablet by mouth once d* OMEPRAZOLE 20 MG CAPSULE,ALIYAH* Take 1 capsule by mouth daily* WARFARIN 5 MG TABLET Take 5mg Sat/Sat/Sat/Sat/Fri.* Problem List As Of Date 07/30/2017 Noted Resolved Esophageal reflux [K21.9] Internal hemorrhoids without mention of complic*INVALID FOR*01/02/2017 Tobacco use disorder [F17.200] INVALID FOR*09/04/2011 Chronic airway obstruction, not elsewhere class*INVALID FOR*02/03/2014 Hypothyroidism [E03.9] INVALID FOR* GYNECOMASTIA [N62] INVALID FOR*11/04/2008 Unspecified sleep apnea [G47.30] INVALID FOR*06/09/2013 More... 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 SCREENING FOR CONDITION NOS [Z13.9] INVALID FOR*11/04/2008 Obesity, unspecified [E66.9] INVALID FOR*06/08/2013 AAA (abdominal aortic aneurysm) [I71.4] INVALID FOR* More... Lumbago [M54.5] INVALID FOR* More... Patient Noncompliance [Z91.19] INVALID FOR* Erectile dysfunction [N52.9] INVALID FOR*01/02/2017 Pulmonary embolism [I26.99] INVALID FOR*01/06/2013 More... Atrial flutter [I48.92] INVALID FOR* More... Atrial fibrillation [I48.91] INVALID FOR* Cervicalgia [M54.2] INVALID FOR*04/13/2013 Headache [R51] INVALID FOR*04/13/2013 SUMMARY [V999.95] INVALID FOR*02/03/2014 Priority: Very Severe More... History of pulmonary embolism [Z86.711] INVALID FOR*01/02/2017 More... History of smoking [Z87.891] INVALID FOR*06/09/2013 Priority: C More... Hyperlipidemia [E78.5] INVALID FOR* More... Atelectasis [J98.11] INVALID FOR*02/03/2014 Priority: B More... Hypertension [I10] INVALID FOR* Hypovolemia [E86.1] INVALID FOR*06/15/2013 Priority: F More... VANIA (obstructive sleep apnea) AHI 71 [G47.33] INVALID FOR* Obesity [E66.9] INVALID FOR* Nasal congestion [R09.81] INVALID FOR*08/27/2016 Visual impairment in both eyes [H54.3] INVALID FOR*08/27/2016 Physical deconditioning, multifactorial dyspnea*INVALID FOR*08/27/2016 Lumbar spondylosis [M47.816] INVALID FOR* DDD (degenerative disc disease), lumbar [M51.36]INVALID FOR* Sciatica [M54.30] INVALID FOR*08/27/2016 Sebaceous cyst [L72.3] INVALID FOR*01/02/2017 Bronchitis [J40] INVALID FOR* Rosacea [L71.9] INVALID FOR* Prescriptions ordered this encounter Disp Refills Start End HYDROCODONE 5 MG-ACETAMINOPHEN 325 M* 60 t* 0 08/01/2017 08/31/2017 Class: Print RX Route: ORAL Sig: Take 1 tablet by mouth twice daily for 30 days. Earliest Fill Date: 08/01/17 Medications Discontinued During This Encounter HYDROcodone-acetaminophen (NORCO) 5-* 60 t* 0 06/26/2017 08/01/2017 Class: Print RX Route: ORAL Sig: Take 1 tablet by mouth twice daily for 30 days. Disc: Reason for discontinue is not on file. Encounter Status:Closed by VERONICA FISHMAN CMA on 08/01/17 PROGRESS Observed: 07/26/2017 Status: COMPLETED Source: [place] 11:11 PM [facility] REPOSITORY HNO ID: [id number] Author: Levon Earl Service: (none) Author Type: Physician Type: Progress Notes Filed: 07/26/2017 11:11 PM Note Text: Okay. HOSP Observed: 07/26/2017 Status: COMPLETED Source: [place] 3:45 PM [facility] REPOSITORY Anticoagulation Visit (COUMWS) JENNIE MCCARTHY ([id number]) 1960 M Date Time Provider Department [facility]17 [facility] During your visit today, we recorded the following information about you: Michell Martin RN 07/26/2017 3:34 PM Signed patient had inr completed at [facility] patients inr is 2.5 (patients inr range is 2.0-3.0) patient is currently taking 5mg daily patients last dose change was on 03/03/15 due to a low level of 1.6 (dose at that time was 2.5mg Sat,Sun and 5mg all other days) patient has had no changes in medication and no change in diet Advised patient to continue on the same dose(s) and that they would only be contacted regarding dosage and follow up instructions after review with provider, if a change is needed. Written instructions given and patient verbalized understanding. Presently scheduled in 4 weeks (08/23/17) for follow up INR. since inr level is within the normal level inr result will await the return of pcp. Levon Earl MD 07/26/2017 11:11 PM Signed Okay. Referring Provider: LEVON EARL [[id number]] Allergies As of Date: 07/26/2017 Noted Allergy Reaction PREDNISONE 02/27/2011 9 - Itching Date Reviewed: 07/26/2017 Reviewed by: Michell Martin RN - Fully Assessed Reason for Visit: Anticoagulation [8] Primary Visit Diagnosis:Atrial fibrillation, unspecified type (HCC) [I48.91] Order(s):INR (POC) [[id number]] Order #: [id number]. #:[id number] Prescriptions as of 07/26/2017 Sig: NITROGLYCERIN 0.4 MG SUBLINGU* Dissolve 1 tablet under the t* HYDROCODONE 5 MG-ACETAMINOPHE* Take 1 tablet by mouth twice * AZELAIC ACID 15 % TOPICAL GEL Apply 1 application to affect* LISINOPRIL 10 MG TABLET TAKE 1 TABLET BY MOUTH EVERY * AMITRIPTYLINE 25 MG TABLET TAKE 1 TABLET BY MOUTH AT BED* LEVOTHYROXINE 150 MCG TABLET TAKE 1 TABLET BY MOUTH EVERY * ALBUTEROL SULFATE 2.5 MG/3 ML* Use 3 mL via nebulizer every * COMPOUNDED PRESCRIPTION NEBULIZER FOR HOME USE. ATORVASTATIN 40 MG TABLET Take 1 tablet by mouth once d* OMEPRAZOLE 20 MG CAPSULE,ALIYAH* Take 1 capsule by mouth daily* WARFARIN 5 MG TABLET Take 5mg Sat/Sat/Sat/Sat/Sat.* Problem List As Of Date 07/26/2017 Noted Resolved Esophageal reflux [K21.9] Internal hemorrhoids without mention of complic*INVALID FOR*01/02/2017 Tobacco use disorder [F17.200] INVALID FOR*09/04/2011 Chronic airway obstruction, not elsewhere class*INVALID FOR*02/03/2014 Hypothyroidism [E03.9] INVALID FOR* GYNECOMASTIA [N62] INVALID FOR*11/04/2008 Unspecified sleep apnea [G47.30] INVALID FOR*06/09/2013 More... 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 SCREENING FOR CONDITION NOS [Z13.9] INVALID FOR*11/04/2008 Obesity, unspecified [E66.9] INVALID FOR*06/08/2013 AAA (abdominal aortic aneurysm) [I71.4] INVALID FOR* More... Lumbago [M54.5] INVALID FOR* More... Patient Noncompliance [Z91.19] INVALID FOR* Erectile dysfunction [N52.9] INVALID FOR*01/02/2017 Pulmonary embolism [I26.99] INVALID FOR*01/06/2013 More... Atrial flutter [I48.92] INVALID FOR* More... Atrial fibrillation [I48.91] INVALID FOR* Cervicalgia [M54.2] INVALID FOR*04/13/2013 Headache [R51] INVALID FOR*04/13/2013 SUMMARY [V999.95] INVALID FOR*02/03/2014 Priority: Very Severe More... History of pulmonary embolism [Z86.711] INVALID FOR*01/02/2017 More... History of smoking [Z87.891] INVALID FOR*06/09/2013 Priority: C More... Hyperlipidemia [E78.5] INVALID FOR* More... Atelectasis [J98.11] INVALID FOR*02/03/2014 Priority: B More... Hypertension [I10] INVALID FOR* Hypovolemia [E86.1] INVALID FOR*06/15/2013 Priority: F More... VANIA (obstructive sleep apnea) AHI 71 [G47.33] INVALID FOR* Obesity [E66.9] INVALID FOR* Nasal congestion [R09.81] INVALID FOR*08/27/2016 Visual impairment in both eyes [H54.3] INVALID FOR*08/27/2016 Physical deconditioning, multifactorial dyspnea*INVALID FOR*08/27/2016 Lumbar spondylosis [M47.816] INVALID FOR* DDD (degenerative disc disease), lumbar [M51.36]INVALID FOR* Sciatica [M54.30] INVALID FOR*08/27/2016 Sebaceous cyst [L72.3] INVALID FOR*01/02/2017 Bronchitis [J40] INVALID FOR* Rosacea [L71.9] INVALID FOR* Follow-up and Disposition History Recorded Encounter Status:Closed by LEVON EARL MD on 07/26/17 PROGRESS Observed: 07/26/2017 Status: COMPLETED Source: [place] 3:32 PM [facility] REPOSITORY HNO ID: [id number] Author: Michell Martin RN Service: (none) Author Type: (none) Type: Progress Notes Filed: 07/26/2017 3:34 PM Note Text: patient had inr completed at [facility] patients inr is 2.5 (patients inr range is 2.0-3.0) patient is currently taking 5mg daily patients last dose change was on 03/03/15 due to a low level of 1.6 (dose at that time was 2.5mg Sat,Sun and 5mg all other days) patient has had no changes in medication and no change in diet Advised patient to continue on the same dose(s) and that they would only be contacted regarding dosage and follow up instructions after review with provider, if a change is needed. Written instructions given and patient verbalized understanding. Presently scheduled in 4 weeks (08/23/17) for follow up INR. since inr level is within the normal level inr result will await the return of pcp. PRERNA Observed: 07/15/2017 Status: COMPLETED Source: [place] 12:00 AM [facility] REPOSITORY Telephone (INTMWS) JENNIE MCCARTHY ([id number]) 1960 M Date Time Provider Department 07/15/17 LEVON EARL During your visit today, we recorded the following information about you: Essie Braxton [employer] 07/15/2017 8:20 AM Signed calling stating office will be getting form today from [facility] [id number] for Dr Cummings to fill out and fax back. Essie Garcia LPN 07/17/2017 2:36 PM Signed Not rec'd at this time. Maribell Harris, RN, RN 07/17/2017 4:18 PM Signed Pt called to report that the [id number] company re faxed the form 4:06 pm. Please notify when the form has been filled out and faxed. Essie Garcia LPN 07/18/2017 8:33 AM Signed rec'd and to pcp to review. Maribell Harris RN, RN 07/18/2017 12:00 PM Signed Pt called to check on status of the form and pt wants notified when that was faxed so the electric company can be notified. Levon Earl MD 07/18/2017 12:52 PM Signed Done. Essie Garcia LPN 07/18/2017 1:43 PM Signed faxed back. Sultana Collins [employer] 07/18/2017 3:01 PM Signed Patient Anisa calling aware form was faxed earlier this afternoon to [facility]. Allergies As of Date: 07/15/2017 Noted Allergy Reaction PREDNISONE 02/27/2011 9 - Itching Date Reviewed: 07/11/2017 Reviewed by: Berto Wisdom - Fully Assessed Reason for Visit: Electronic Communication [890] Cmt: AE electric form Prescriptions as of 07/15/2017 Sig: NITROGLYCERIN 0.4 MG SUBLINGU* Dissolve 1 tablet under the t* HYDROCODONE 5 MG-ACETAMINOPHE* Take 1 tablet by mouth twice * AZELAIC ACID 15 % TOPICAL GEL Apply 1 application to affect* LISINOPRIL 10 MG TABLET TAKE 1 TABLET BY MOUTH EVERY * AMITRIPTYLINE 25 MG TABLET TAKE 1 TABLET BY MOUTH AT BED* LEVOTHYROXINE 150 MCG TABLET TAKE 1 TABLET BY MOUTH EVERY * ALBUTEROL SULFATE 2.5 MG/3 ML* Use 3 mL via nebulizer every * COMPOUNDED PRESCRIPTION NEBULIZER FOR HOME USE. ATORVASTATIN 40 MG TABLET Take 1 tablet by mouth once d* OMEPRAZOLE 20 MG CAPSULE,ALIYAH* Take 1 capsule by mouth daily* WARFARIN 5 MG TABLET Take 5mg Sat/Sat/Sat/Sat/Sat.* Problem List As Of Date 07/15/2017 Noted Resolved Esophageal reflux [K21.9] Internal hemorrhoids without mention of complic*INVALID FOR*01/02/2017 Tobacco use disorder [F17.200] INVALID FOR*09/04/2011 Chronic airway obstruction, not elsewhere class*INVALID FOR*02/03/2014 Hypothyroidism [E03.9] INVALID FOR* GYNECOMASTIA [N62] INVALID FOR*11/04/2008 Unspecified sleep apnea [G47.30] INVALID FOR*06/09/2013 More... 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 SCREENING FOR CONDITION NOS [Z13.9] INVALID FOR*11/04/2008 Obesity, unspecified [E66.9] INVALID FOR*06/08/2013 AAA (abdominal aortic aneurysm) [I71.4] INVALID FOR* More... Lumbago [M54.5] INVALID FOR* More... Patient Noncompliance [Z91.19] INVALID FOR* Erectile dysfunction [N52.9] INVALID FOR*01/02/2017 Pulmonary embolism [I26.99] INVALID FOR*01/06/2013 More... Atrial flutter [I48.92] INVALID FOR* More... Atrial fibrillation [I48.91] INVALID FOR* Cervicalgia [M54.2] INVALID FOR*04/13/2013 Headache [R51] INVALID FOR*04/13/2013 SUMMARY [V999.95] INVALID FOR*02/03/2014 Priority: Very Severe More... History of pulmonary embolism [Z86.711] INVALID FOR*01/02/2017 More... History of smoking [Z87.891] INVALID FOR*06/09/2013 Priority: C More... Hyperlipidemia [E78.5] INVALID FOR* More... Atelectasis [J98.11] INVALID FOR*02/03/2014 Priority: B More... Hypertension [I10] INVALID FOR* Hypovolemia [E86.1] INVALID FOR*06/15/2013 Priority: F More... VANIA (obstructive sleep apnea) AHI 71 [G47.33] INVALID FOR* Obesity [E66.9] INVALID FOR* Nasal congestion [R09.81] INVALID FOR*08/27/2016 Visual impairment in both eyes [H54.3] INVALID FOR*08/27/2016 Physical deconditioning, multifactorial dyspnea*INVALID FOR*08/27/2016 Lumbar spondylosis [M47.816] INVALID FOR* DDD (degenerative disc disease), lumbar [M51.36]INVALID FOR* Sciatica [M54.30] INVALID FOR*08/27/2016 Sebaceous cyst [L72.3] INVALID FOR*01/02/2017 Bronchitis [J40] INVALID FOR* Rosacea [L71.9] INVALID FOR* Encounter Status:Closed by ESSIE GARCIA LPN on 07/18/17 PROGRESS Observed: 07/11/2017 Status: COMPLETED Source: [place] 4:12 PM [facility] HNO ID: [id number] Author: Adriano Montes Service: (none) Author Type: Physician Type: Progress Notes Filed: 07/11/2017 5:08 PM Note Text: PERTINENT CARDIAC HISTORY Atrial flutter - rate control AAA - 5.3 cm, repair 2013 Pulmonary embolism Sick sinus VANIA - CPAP HL HTN Tobaccoism ADHERENCE TO GUIDELINES WILEY-I or ARB for HF with prior LVEF<40 (NQF 0081) - N/A ASA or Plavix for ASHD (NQF 0067) - N/A Beta bethany for ASHD with prior PR or prior LVEF<40 (NQF 0070) - N/A Beta bethany for HF with prior LVEF<40 (NQF 0083) - N/A WILEY-I or ARB for ASHD with DM or prior LVEF<40 (NQF 0066) - N/A Statin therapy for ASHD or FHL or DM - met BMI documented and plan if >25 (NQF 0421) - lifestyle recommendation form Tobacco use screening and referral (NQF 0028) - lifestyle recommendation form Recommendation for whole food, plant based diet - lifestyle recommendation form CLINICAL IMPRESSION/PLAN: Jennie Mccarthy is doing well. Exercise tolerance has improved. He's been encouraged to continue exercising and try to get his weight under better control. His atrial flutter is permanent. He is now more compliant with his anticoagulation follow-up. I've encouraged him to adopt Plant based diet. Lipid profile will be rechecked in the future. Blood pressures at home have been in the 130/80 range. He's been advised to watch this closely. I will see him in 8 months or as needed. Written and verbal health teaching given to patient, patient verbalizes understanding and agrees with treatment plan. This note was generated using Olo voice recognition system, and there may be some incorrect words, spellings, and punctuation that were not noted in checking the note before saving. DIAGNOSIS FOR VISIT: Atrial flutter HISTORY OF PRESENT ILLNESS Jennie Mccarthy returns for follow-up of his permanent atrial flutter and hypertension. He is now on CPAP and has been sleeping better. His exercise tolerance has improved. He had injections in his back and is now walking better. He denies chest pain. He's had no orthopnea. His edema has improved. He's had no syncope, TIAs, amaurosis or claudication. He is unaware of his heart rhythm. ALLERGIES: ALLERGIES Allergen Reactions - Prednisone Itching CURRENT OUTPATIENT MEDICATIONS: HYDROcodone-acetaminophen (NORCO) 5-325 mg per tablet Take 1 tablet by mouth twice daily for 30 days. lisinopril (ZESTRIL, PRINIVIL) 10 mg tablet TAKE 1 TABLET BY MOUTH EVERY DAY amitriptyline (ELAVIL) 25 mg tablet TAKE 1 TABLET BY MOUTH AT BEDTIME levothyroxine (SYNTHROID) 150 mcg tablet TAKE 1 TABLET BY MOUTH EVERY DAY ON EMPTY STOMACH FOR THYROID albuterol (PROVENTIL) 2.5 mg /3 mL (0.083 %) nebulizer solution Use 3 mL via nebulizer every 4 hours as needed for Wheezing/Shortness of Breath. Use over 5-15minutes. Nebulizer NEBULIZER FOR HOME USE. atorvastatin (LIPITOR) 40 mg tablet Take 1 tablet by mouth once daily. warfarin (COUMADIN) 5 mg tablet Take 5mg Mon/Tue/Wed/Sima/Fri. Take 7.5mg Sat/Sun or as directed. nitroglycerin sublingual (NITROQUICK) 0.4 mg SL tablet Dissolve 1 tablet under the tongue as needed. FOR CHEST PAIN. IF NO RELIEF CALL 911 Azelaic Acid (FINACEA) 15 % gel Apply 1 application to affected area twice daily. Apply to affected areas on the face, avoiding eyes and lips. omeprazole (PRILOSEC) 20 mg capsule Take 1 capsule by mouth daily before breakfast. 1/2 hr before meal. For heartburn. PHYSICAL EXAMINATION: VITAL SIGNS: BP 140/92 Pulse 64 Ht 5' 8.5 (1.74m) Wt 238 lb 9.6 oz (108.2kg) BMI 35.75 kg/(m2). Chest: Clear to percussion and auscultation. There is mild expiratory prolongation. Trachea is midline. Air entry is equal. Cardiac: Irregularly irregular rhythm. S1 and S2 are normal. PMI is nondisplaced. There is a soft aortic outflow murmur. Carotids are brisk without bruits. JVP is less than 10 cm. Abdomen: Soft and nontender. There are no pulsatile masses or bruits. No liver enlargement. Bowel sounds are active. Extremities: Trace edema. There is no calf tenderness. Pulses are intact and symmetrical. There are scattered areas of eczema on the lower extremities. Recent labs reviewed. LDL has not improved with the switch to Lipitor. TSH is normal. Renal function is normal. Electronically Signed: Adriano Montes MD July 11, 2017 4:12 PM CC: Levon Earl MD CNOV Observed: 07/11/2017 Status: COMPLETED Source: [place] 4:00 PM [facility] Office Visit (AGCARDWST) JENNIE MCCARTHY ([id number]) 1960 M Date Time Provider Department 07/11/17 4:00 PM ADRIANO MONTES During your visit today, we recorded the following information about you: Pulse Blood pressure Weight Height 64/minute 140/92 108.2 kg 1.74 m Adriano Montes MD 07/11/2017 5:08 PM Signed PERTINENT CARDIAC HISTORY Atrial flutter - rate control AAA - 5.3 cm, repair 2013 Pulmonary embolism Sick sinus VANIA - CPAP HL HTN Tobaccoism ADHERENCE TO GUIDELINES WILEY-I or ARB for HF with prior LVEFANDlt;40 (NQF 0081) - N/A ASA or Plavix for ASHD (NQF 0067) - N/A Beta bethany for ASHD with prior PR or prior LVEFANDlt;40 (NQF 0070) - N/A Beta bethany for HF with prior LVEFANDlt;40 (NQF 0083) - N/A WILEY-I or ARB for ASHD with DM or prior LVEFANDlt;40 (NQF 0066) - N/A Statin therapy for ASHD or FHL or DM - met BMI documented and plan if ANDgt;25 (NQF 0421) - lifestyle recommendation form Tobacco use screening and referral (NQF 0028) - lifestyle recommendation form Recommendation for whole food, plant based diet - lifestyle recommendation form CLINICAL IMPRESSION/PLAN: Jennie Mccarthy is doing well. Exercise tolerance has improved. He's been encouraged to continue exercising and try to get his weight under better control. His atrial flutter is permanent. He is now more compliant with his anticoagulation follow-up. I've encouraged him to adopt Plant based diet. Lipid profile will be rechecked in the future. Blood pressures at home have been in the 130/80 range. He's been advised to watch this closely. I will see him in 8 months or as needed. Written and verbal health teaching given to patient, patient verbalizes understanding and agrees with treatment plan. This note was generated using Olo voice recognition system, and there may be some incorrect words, spellings, and punctuation that were not noted in checking the note before saving. DIAGNOSIS FOR VISIT: Atrial flutter HISTORY OF PRESENT ILLNESS Jennie Mccarthy returns for follow-up of his permanent atrial flutter and hypertension. He is now on CPAP and has been sleeping better. His exercise tolerance has improved. He had injections in his back and is now walking better. He denies chest pain. He's had no orthopnea. His edema has improved. He's had no syncope, TIAs, amaurosis or claudication. He is unaware of his heart rhythm. ALLERGIES: ALLERGIES Allergen Reactions - Prednisone Itching CURRENT OUTPATIENT MEDICATIONS: HYDROcodone-acetaminophen (NORCO) 5-325 mg per tablet Take 1 tablet by mouth twice daily for 30 days. lisinopril (ZESTRIL, PRINIVIL) 10 mg tablet TAKE 1 TABLET BY MOUTH EVERY DAY amitriptyline (ELAVIL) 25 mg tablet TAKE 1 TABLET BY MOUTH AT BEDTIME levothyroxine (SYNTHROID) 150 mcg tablet TAKE 1 TABLET BY MOUTH EVERY DAY ON EMPTY STOMACH FOR THYROID albuterol (PROVENTIL) 2.5 mg /3 mL (0.083 %) nebulizer solution Use 3 mL via nebulizer every 4 hours as needed for Wheezing/Shortness of Breath. Use over 5-15minutes. Nebulizer NEBULIZER FOR HOME USE. atorvastatin (LIPITOR) 40 mg tablet Take 1 tablet by mouth once daily. warfarin (COUMADIN) 5 mg tablet Take 5mg Mon/Sat/Sat/Sima/Fri. Take 7.5mg Sat/Sun or as directed. nitroglycerin sublingual (NITROQUICK) 0.4 mg SL tablet Dissolve 1 tablet under the tongue as needed. FOR CHEST PAIN. IF NO RELIEF CALL 911 Azelaic Acid (FINACEA) 15 % gel Apply 1 application to affected area twice daily. Apply to affected areas on the face, avoiding eyes and lips. omeprazole (PRILOSEC) 20 mg capsule Take 1 capsule by mouth daily before breakfast. 1/2 hr before meal. For heartburn. PHYSICAL EXAMINATION: VITAL SIGNS: BP 140/92 Pulse 64 Ht 5' 8.5ANDquot; (1.74m) Wt 238 lb 9.6 oz (108.2kg) BMI 35.75 kg/(m2). Chest: Clear to percussion and auscultation. There is mild expiratory prolongation. Trachea is midline. Air entry is equal. Cardiac: Irregularly irregular rhythm. S1 and S2 are normal. PMI is nondisplaced. There is a soft aortic outflow murmur. Carotids are brisk without bruits. JVP is less than 10 cm. Abdomen: Soft and nontender. There are no pulsatile masses or bruits. No liver enlargement. Bowel sounds are active. Extremities: Trace edema. There is no calf tenderness. Pulses are intact and symmetrical. There are scattered areas of eczema on the lower extremities. Recent labs reviewed. LDL has not improved with the switch to Lipitor. TSH is normal. Renal function is normal. Electronically Signed: Adriano Montes MD July 11, 2017 4:12 PM CC: MD Adriano Soriano MD 07/11/2017 4:13 PM Signed LIFESTYLE CHANGE A healthy lifestyle is the most important component of your overall treatment plan. Please give serious thought to the following areas and commit to making chcf changes. EAT A WHOLE FOOD, PLANT BASED DIET The nutrition your body gets is more important than the medicine you take. What matters most is the overall way you eat. We encourage you to minimize the use of animal products (which include dairy and all meats except fatty fish) and use whole, unprocessed plant foods to provide your protein, vitamins and other nutrients. We have a lot of information to share with you on this topic. We also hold Shared Medical Appointments, where you can come visit with Dr. Montes in the company of other patients and spend over an hour talking about the challenges of changing the way you eat. This is not a ANDquot;dietANDquot;. It is a way of life that you will keep with you. EXERCISE REGULARLY It is not important to spend hours in the gym, lifting weights and perspiring heavily. A total of 2-3 hours per week of aerobic (causing you to be moderately short of breath) exercise is sufficient to improve your health. Talk to us before you begin a new exercise program, if you have heart disease or experience shortness of breath or chest pain. REDUCE STRESS Chronic emotional and physical stress leads to disease. Ways of reducing stress include meditation, visualization, prayer, yoga and other forms of relaxation therapy. Consistency is the elaine. Find a technique that works for you and do it every day. CULTIVATE RELATIONSHIPS Loneliness and isolation have a major negative impact on health. Seek out others who can love, care for and nurture you. Avoid hurtful relationships. MAINTAIN IDEAL BODY WEIGHT The best way to do this is to do all the things above. Our bodies naturally find the right weight if we keep moving and feed ourselves the right food. If your BMI is greater than 25, we strongly recommend a referral to a weight management program. Please speak to us or your family physician about available programs. AVOID NICOTINE IN ALL FORMS This includes all tobacco products, whether chewed, smoked, vaped, or rubbed on the skin. Smoking cessation programs, which can make use of tobacco substitutes, medications to suppress cravings and behavior management, are available. Please contact your family physician about programs in your area. Referring Provider: ADRIANO MONTES [[id number]] Allergies As of Date: 07/11/2017 Noted Allergy Reaction PREDNISONE 02/27/2011 9 - Itching Date Reviewed: 07/11/2017 Reviewed by: Berto Wisdom - Fully Assessed Reason for Visit: Follow Up [171] Primary Visit Diagnosis:Atypical atrial flutter (HCC) [I48.4] Other Visit Diagnosis:Hypertension, essential [I10] Order(s):nitroglycerin sublingual (NITROQUICK) 0.4 mg SL tabletDissolve 1 tablet under the tongue as needed. FOR CHEST PAIN. IF NO RELIEF CALL 911Disp: 25 tabletRfl: 6 Prescriptions as of 07/11/2017 Sig: NITROGLYCERIN 0.4 MG SUBLINGU* Dissolve 1 tablet under the t* HYDROCODONE 5 MG-ACETAMINOPHE* Take 1 tablet by mouth twice * LISINOPRIL 10 MG TABLET TAKE 1 TABLET BY MOUTH EVERY * AMITRIPTYLINE 25 MG TABLET TAKE 1 TABLET BY MOUTH AT BED* LEVOTHYROXINE 150 MCG TABLET TAKE 1 TABLET BY MOUTH EVERY * ALBUTEROL SULFATE 2.5 MG/3 ML* Use 3 mL via nebulizer every * COMPOUNDED PRESCRIPTION NEBULIZER FOR HOME USE. ATORVASTATIN 40 MG TABLET Take 1 tablet by mouth once d* WARFARIN 5 MG TABLET Take 5mg Sat/Sat/Sat/Sat/Sat.* AZELAIC ACID 15 % TOPICAL GEL Apply 1 application to affect* OMEPRAZOLE 20 MG CAPSULE,ALIYAH* Take 1 capsule by mouth daily* Medication notes this encounter AZELAIC ACID 15 % TOPICAL GEL >> Berto Wisdom MA 07/11/2017 3:52 PM >> BERTO WISDOM MA Jul 11, 2017 3:52 PM Not using OMEPRAZOLE 20 MG CAPSULE,DELAYED RELEASE >> Berto Wisdom MA 07/11/2017 3:53 PM >> BERTO WISDOM MA Jul 11, 2017 3:53 PM Not taking Problem List As Of Date 07/11/2017 Noted Resolved Esophageal reflux [K21.9] Internal hemorrhoids without mention of complic*INVALID FOR*01/02/2017 Tobacco use disorder [F17.200] INVALID FOR*09/04/2011 Chronic airway obstruction, not elsewhere class*INVALID FOR*02/03/2014 Hypothyroidism [E03.9] INVALID FOR* GYNECOMASTIA [N62] INVALID FOR*11/04/2008 Unspecified sleep apnea [G47.30] INVALID FOR*06/09/2013 More... 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 SCREENING FOR CONDITION NOS [Z13.9] INVALID FOR*11/04/2008 Obesity, unspecified [E66.9] INVALID FOR*06/08/2013 AAA (abdominal aortic aneurysm) [I71.4] INVALID FOR* More... Lumbago [M54.5] INVALID FOR* More... Patient Noncompliance [Z91.19] INVALID FOR* Erectile dysfunction [N52.9] INVALID FOR*01/02/2017 Pulmonary embolism [I26.99] INVALID FOR*01/06/2013 More... Atrial flutter [I48.92] INVALID FOR* More... Atrial fibrillation [I48.91] INVALID FOR* Cervicalgia [M54.2] INVALID FOR*04/13/2013 Headache [R51] INVALID FOR*04/13/2013 SUMMARY [V999.95] INVALID FOR*02/03/2014 Priority: Very Severe More... History of pulmonary embolism [Z86.711] INVALID FOR*01/02/2017 More... History of smoking [Z87.891] INVALID FOR*06/09/2013 Priority: C More... Hyperlipidemia [E78.5] INVALID FOR* More... Atelectasis [J98.11] INVALID FOR*02/03/2014 Priority: B More... Hypertension [I10] INVALID FOR* Hypovolemia [E86.1] INVALID FOR*06/15/2013 Priority: F More... VANIA (obstructive sleep apnea) AHI 71 [G47.33] INVALID FOR* More... Obesity [E66.9] INVALID FOR* Nasal congestion [R09.81] INVALID FOR*08/27/2016 Visual impairment in both eyes [H54.3] INVALID FOR*08/27/2016 Physical deconditioning, multifactorial dyspnea*INVALID FOR*08/27/2016 Lumbar spondylosis [M47.816] INVALID FOR* DDD (degenerative disc disease), lumbar [M51.36]INVALID FOR* Sciatica [M54.30] INVALID FOR*08/27/2016 Sebaceous cyst [L72.3] INVALID FOR*01/02/2017 Bronchitis [J40] INVALID FOR* Rosacea [L71.9] INVALID FOR* Other instructions from your clinician: LIFESTYLE CHANGE A healthy lifestyle is the most important component of your overall treatment plan. Please give serious thought to the following areas and commit to making chcf changes. EAT A WHOLE FOOD, PLANT BASED DIET The nutrition your body gets is more important than the medicine you take. What matters most is the overall way you eat. We encourage you to minimize the use of animal products (which include dairy and all meats except fatty fish) and use whole, unprocessed plant foods to provide your protein, vitamins and other nutrients. We have a lot of information to share with you on this topic. We also hold Shared Medical Appointments, where you can come visit with Dr. Montes in the company of other patients and spend over an hour talking about the challenges of changing the way you eat. This is not a diet. It is a way of life that you will keep with you. EXERCISE REGULARLY It is not important to spend hours in the gym, lifting weights and perspiring heavily. A total of 2-3 hours per week of aerobic (causing you to be moderately short of breath) exercise is sufficient to improve your health. Talk to us before you begin a new exercise program, if you have heart disease or experience shortness of breath or chest pain. REDUCE STRESS Chronic emotional and physical stress leads to disease. Ways of reducing stress include meditation, visualization, prayer, yoga and other forms of relaxation therapy. Consistency is the elaine. Find a technique that works for you and do it every day. CULTIVATE RELATIONSHIPS Loneliness and isolation have a major negative impact on health. Seek out others who can love, care for and nurture you. Avoid hurtful relationships. MAINTAIN IDEAL BODY WEIGHT The best way to do this is to do all the things above. Our bodies naturally find the right weight if we keep moving and feed ourselves the right food. If your BMI is greater than 25, we strongly recommend a referral to a weight management program. Please speak to us or your family physician about available programs. AVOID NICOTINE IN ALL FORMS This includes all tobacco products, whether chewed, smoked, vaped, or rubbed on the skin. Smoking cessation programs, which can make use of tobacco substitutes, medications to suppress cravings and behavior management, are available. Please contact your family physician about programs in your area. Prescriptions ordered this encounter Disp Refills Start End NITROGLYCERIN 0.4 MG SUBLINGUAL TABL* 25 t* 6 07/11/2017 Route: SUBLINGUAL Sig: Dissolve 1 tablet under the tongue as needed. FOR CHEST PAIN. IF NO RELIEF CALL 911 Medications Discontinued During This Encounter nitroglycerin sublingual (NITROQUICK* 25 t* 6 11/09/2016 07/11/2017 Route: SUBLINGUAL Sig: Dissolve 1 tablet under the tongue as needed. FOR CHEST PAIN. IF NO RELIEF CALL 911 Disc: Reason for discontinue is not on file. Encounter Status:Closed by ADRIANO MONTES MD on 07/11/17 PROTIME Collected: 07/11/2017 Status: F Source: [place] 3:43 PM [facility] REPOSITORY TYPE CODE TESTS RESULT OUT OF RANGE REFERENCE UNITS LAB PSEC 9.7-13.0 sec High PT Sec 24.0 LAB INR 0.9-1.3 High PT INR 2.5 Result Comment: Vitamin K Antagonist (VKA) Therapeutic Range: INR 2 to 3 (Target INR of 2.5) Note: For patients treated with VKA drugs, such as warfarin, the [employer] 2012 Guideline recommends a therapeutic INR range of 2 to 3 (target INR of 2.5). This recommendation includes high-risk patients with antiphospholipid syndrome with previous arterial or venous thromboembolism, current-generation mechanical or bioprosthetic aortic heart valve replacement. Note: Patients with mechanical aortic valve replacement and additional risk factors for thromboembolic events (atrial fibrillation, previous thromboembolism, LV dysfunction, hypercoagulable conditions) or an older generation mechanical AVR (i.e., ball in-Cage) or any mechanical MVR should have a INR therapeutic range of 2.5 to 3.5 (target INR of 3). Lili GH, et al. Chest 2012, 141:7S-47S Alcira CEVALLOS et al. [facility] 2017, 70: 252-289 Performed By: #### PT #### [facility] [address] [address] ALLERGIES ALLERGIES DATE TYPE / CODE NAME / CODE REACTION SEVERITY SOURCE 05/13/2018 Drug prednisone/[id number] Itching Unknown Izaiah Allergy/416 2164(RXNORM) Community [address]649([facility] ED CT) Repository 02/27/2011 DRUG PREDNISONE ITCHING [facility] INGREDI/[address] [place] [address]([facility] ED CT) NG/[id number] PREDNISONE [facility] 6([facility] CT) Repository ENCOUNTERS ENCOUNTERS ADMIT/DISCHARGE ACCOUNT NUMBER ADMITTING ENCOUNTER LOCATION SOURCE CLASS 06/12/2018/06/12/20 [id number] Emergency [address] ding:ED Repository 06/03/2018 [id number] Ambulatory [facility] ding:PSN Repository 05/22/2018/05/22/20 [id number] Ambulatory [address] [place] Repository 05/21/2018/05/22/20 [id number] Ambulatory [address] Repository 05/13/2018/05/13/20 [id number] Emergency [address] ding:ED Repository 04/02/2018/04/03/20 [id number] Ambulatory [address] [place] Repository 03/31/2018/03/31/20 [id number] Ambulatory [address] [place] Repository 03/12/2018/03/12/20 [id number] Ambulatory [address] [place] Repository 03/12/2018/03/12/20 [id number] Ambulatory [address] [place] Repository 03/12/2018/03/14/20 [id number] Ambulatory [address] [place] Repository 03/12/2018/03/14/20 [id number] Ambulatory [address] [place] Repository 03/12/2018 [id number] Ambulatory [facility] MEDICAL Repository CENTERBuildi ng:CAGWS 12/31/2017/01/01/20 [id number] Ambulatory [address] [place] Repository 12/31/2017/01/02/20 [id number] Ambulatory [address] [place] Repository 12/10/2017/12/12/19 [id number] Ambulatory [address] [place] Repository 12/03/2017/12/04/19 [id number] [facility] [facility] [address] ding:ED Repository 08/24/2017/09/10/19 [id number] Ambulatory [address] Repository 07/26/2017/07/29/19 [id number] Ambulatory [address] Repository 07/11/2017/07/11/19 [id number] Ambulatory [address] Other [place] Repository 07/11/2017/07/11/19 [id number] Ambulatory [address] MEDICAL Repository [facility] ng:CAGWS 07/11/2017/07/11/19 [id number] Ambulatory [address] Repository PAYERS PAYERS ENCOUNTER GUARANTOR PAYER SUBSCRIBER SOURCE 06/12/2018 JENNIE S SHARI Primary JENNIE S SHARI [address] Insurance:ANTHEM Sr.: [address], MEDICARE SENIOR [id number] [address]Bjy: ADVANTAPolicy Number: Repository [id number] (HP) Date:[id number] [address] [place] [address] 074[address]EP: 06/12/2018 Secondary JENNIE S SHARI Izaiah Insurance:MEDICAIDPol Sr.: [facility] icy Number: [id number] Hospital [id number] Repository Date:2018-06-12 06/12/2018 Tertiary NOT GIVENUNK [place] Insurance:SELF PAY [facility] [place] Number: Effective Repository Date:2018-06-12 06/03/2018 JENNIE S SHARI Primary JENNIE S SHARI Izaiah Sr[address] Insurance:ANTHEM Sr.: [address], MEDICARE SENIOR [id number] [facility] [place] [address]Fak: ADVANTAPolicy Number: Repository [id number] (HP) Date:1868-75-08VP [address] [place] [address]84[address]JS: 06/03/2018 Secondary JENNIE S SHARI Izaiah Insurance:MEDICAIDPol Sr.: [facility] icy Number: [id number] Hospital [id number] Repository Date:2018-05-21 06/03/2018 Tertiary NOT GIVENUNK [place] Insurance:SELF PAY [facility]: Effective Repository Date:2018-05-21 05/13/2018 JENNIE S SHARI Primary JENNIE S SHARI Izaiah Sr[address] Insurance:MEDICAIDPol Sr.: Community [address] [place] [address], icy Number: [id number] [place] [address]Rgk: [id number] Repository Date:2018-05-13 (HP) 05/13/2018 Secondary JENNIE S SHARI Izaiah Insurance:ANTHEM Sr.: Community MEDICARE SENIOR [id number] Hospital ADVANTAPolicy Number: Repository [id number] Date:9708-20-04HL [address] [place] [address] 359[address]SU: 05/13/2018 Tertiary NOT GIVENUNK Iza[place] Insurance:SELF PAY [facility] Number: Effective Repository Date:2018-05-13 12/03/2017 JENNIE S SHARI Primary JENNIE S SHARI Izaiah Sr[address] Insurance:ANTHEM Sr.: Community [address], MEDICARE SENIOR [id number] [facility] [address]Oxc: ADVANTAPolicy Number: Repository [id number] () Date:[id number] [address] [place] [address] 56[address]MF: 12/03/2017 Secondary JENNIE S SHARI Izaiah Insurance:MEDICAIDPol Sr.: Community icy Number: [id number] Hospital [id number] Repository Date:2017-12-03 12/03/2017 Tertiary NOT GIVENUNK Izaiah Insurance:SELF PAY [facility] Number: Effective Repository Date:2017-12-03 07/11/2017 JENNIE S AKERSDOB: Primary JENNIE S AKERSDOB: [facility] [id number] E Insurance:MEDICARE A [id number] [place] [address] BPolicy Number: Repository [address] [place] [address] [id number]: 330) Date: [id number] (HP) 07/11/2017 Secondary JENNIE VAUGHAN: [facility] Insurance:[place] [id number] [facility] MEDICAIDPolicy Repository Number: [id number] Date:
== END ==
PROVIDERS: Family Provider Internal Medicine; PCP Internal Medicine; Referring Provider Nurse Practitioner; Visit Provider Nurse Practitioner
DX: M54.12 Radiculopathy, cervical region (principal); R20.0 Anesthesia of skin; R20.2 Paresthesia of skin
CPT/HCPCS: 95886; 95910

== ENCOUNTER 2018-06-12 15:59 | Emergency (ER) | payer MEDICARE, MEDICAID, SELFPAY ==
[2018-06-12 16:00] VITALS: BP 165/99; PULSE 90; RESP 16; TEMP 36.1; O2SAT 95; BMI 35.1
--- NOTE | 2018-06-12 16:11 | EKG12_ITS ---
Test Reason : Blood Pressure : / mmHG Vent. Rate : 074 BPM Atrial Rate : 264 BPM P-R Int : 000 ms QRS Dur : 098 ms QT Int : 414 ms P-R-T Axes : 085 -05 052 degrees QTc Int : 459 ms Atrial flutter with variable A-V block Inferior infarct , age undetermined Abnormal ECG Confirmed by NIKOS MARIE, AALIYAH ([id number]), assistant film editor JUAN ROCK ([id number]) on 06/16/2018 2:33:12 PM Referred By: Kamini Older Confirmed By:AALIYAH KNOTT MD
[2018-06-12 16:14] VITALS: O2SAT 95
--- NOTE | 2018-06-12 16:21 | ED.VISSUMM ---
- ER Visit Summary Date of Service: 06/12/18 Chief Complaint: [] Uvula, swollen today History of Present Illness: The patient is a 57 M [] patient reports he is really been in good health he noticed swelling of his uvula this morning that persisted he went to bed feeling fine, had no fever no cough no sore throat, he is not prone to uvular swelling or pharyngitis he had no chest pain he is not short of breath he has had no fever no cough his bowel and bladder habits been normal and his other health conditions have all been stable Physical Examination: [] 165/99, 95% room air afebrile General, no distress resting comfortably HEENT is generally unremarkable except his uvula is obviously swollen and edematous his airways intact for the mouth is normal there is no exudate, his speech is easy and clear to understand no stridor or drooling The neck is supple no adenopathy Cardiovascular, regular rate and rhythm Lungs, clear bilateral Abdomen, soft nontender Extremities, no clubbing cyanosis or edema Neurologic, awake alert answering questions appropriately moving all 4 extremities No complaints other than the above, he was given azithromycin, Naprosyn here first dose without difficulty he is able to eat and drink and swallow without difficulty he will continue those prescriptions follow with his family doctor return for change in symptoms Test Results: [] Emergency Department Course and Treatment: [] Treatment Plan: [] Disposition: [] Home stable Impression: [] Uvulitis This note was generated with [employer] dictation software. It may contain incorrect words, spelling, and punctuation that were not noted in review of the chart prior to signing ED Disposition - Plan for ED Patient: Chief Complaint: Shortness of Breath Referrals: Levon Corral MD [Primary Care Provider] -
--- NOTE | 2018-06-12 16:27 | ED.DEP ---
ED Disposition - Plan for ED Patient: Chief Complaint: Shortness of Breath Instructions: ED Uvulitis Prescriptions: Azithromycin [Zithromax Z-Silver] 250 mg PO UD #1 box Naproxen [Naprosyn] 500 mg PO BID PRN #20 tab Referrals: Levon Corral MD [Primary Care Provider] -
[2018-06-12] MEDS: Azithromycin 250 MG Tablet 500 MG PO (16:48)
[2018-06-12] MEDS: Naproxen 500 MG Tablet PO (16:48)
== END 2018-06-12 16:53 | disposition home or self-care (01) ==
LOC: ED 16:45
PROVIDERS: Emergency Provider Emergency Medicine; Family Provider Internal Medicine; PCP Internal Medicine
DX: K12.2 Cellulitis and abscess of mouth (principal); J44.9 Chronic obstructive pulmonary disease, unspecified; I48.92 Unspecified atrial flutter
CPT/HCPCS: 93005; 99283

== ENCOUNTER 2019-07-12 22:04 | Emergency (ER) | payer MEDICARE, MEDICAID, SELFPAY ==
[2019-07-12 22:05] VITALS: BP 179/117; PULSE 63; RESP 18; TEMP 36.6; O2SAT 95; BMI 36.5
--- NOTE | 2019-07-12 22:16 | CT_ITS ---
STUDY: CT BRAIN WITHOUT CONTRAST REASON FOR EXAM: Male, 58 years old. Head pain RADIATION DOSAGE (If Supplied By Facility): CTDIvol = ( 44.99 ) mGy, DLP = ( 829.85 ) mGycm TECHNIQUE: Transaxial CT imaging of the brain was performed without administration of intravenous contrast material. Individualized dose optimization techniques were used for this CT. COMPARISON: 12/14/2012 FINDINGS: Normal soft tissue structures. Normal calvarium. There is mild cerebral atrophy with widening of the extra-axial spaces and ventricular dilatation. There are areas of decreased attenuation within the white matter tracts of the supratentorial brain, consistent with microvascular disease changes. There are bilateral lacunar infarcts of the basal ganglia and thalami. Normal brainstem. Normal cerebellum. There is no intracranial hemorrhage. There are no findings of an acute ischemic infarction. Normal visualized paranasal sinuses. CT/Brain/Head without Contrast IMPRESSION: Mild atrophy, mild diffuse white matter disease, and small lacunar infarcts. These were all present previously. No definite acute abnormalities. Electronically Signed: Elliott Sol MD at 23:14 EST , Service support ,
--- NOTE | 2019-07-12 22:18 | ED.VIS.GEN ---
History of Present Illness Chief Complaint: Headache Informant: Patient Onset: Today Current Severity: Mild Maximum Severity: Moderate Narrative: Patient presents with intermittent sharp pain to the right amish this been ongoing since noon today. He states he will have 3 or 4 attacks in a row and then nothing for a short time period. He denies any recent head injury. He reports some intermittent neck pain that is been chronic for the past year. He has not taken anything for his pain. - Past Medical History (1) AAA (abdominal aortic aneurysm) Status: Chronic (2) COPD (chronic obstructive pulmonary disease) Status: Chronic (3) Chronic atrial flutter Status: Chronic (4) Esophageal reflux Status: Chronic (5) Hypothyroidism Status: Chronic (6) Pure hypercholesterolemia Status: Chronic (7) Sleep apnea Status: Chronic Past Medical History - Allergies and Home Meds Allergies/Adverse Reactions: Allergies prednisone Adverse Reaction (Verified 07/12/19 22:07) Itching Primary Care Physician: Levon Corral MD [Primary Care Provider] - Prior records reviewed: Yes Surgical History: cholecystectomy, - - abdominal aortic anuerysm repair. Lives: Spouse/ Significant Other Smoking Status: Current every day smoker - Family History Maternal Family History: Reports: No pertinent history Review of Systems General: Denies: Chills, Fever Eyes: Denies: Visual changes - bilaterally ENT: Denies: Bilateral ear pain, Sore throat Cardiovascular: Denies: Chest pain Respiratory: Denies: Dyspnea, Cough Gastrointestinal: Denies: Abdominal pain, Nausea, Vomiting, Diarrhea Musculoskeletal: Reports: Neck pain. Denies: Extremity Pain Neurological: Reports: Headache. Denies: Weakness, Parasthesia Endocrine: Denies: Polyuria Hematologic: Denies: Easy bruising Allergy: Denies: Uticaria Physical Exam Vital Signs/Narrative: Vital Signs Temp Pulse Resp BP Pulse Ox 07/12/19 22:05 97.9 F 63 18 179/117 H 95 Inital Vital Signs reviewed: Yes General: Well nourished, Well developed Head: Normocephalic Eyes: Perrl, EOMI ENT: Moist mucous membranes, - - No tenderness over the temporal artery. Neck: Supple, - - Muscular tenderness in the lower cervical paraspinal muscles. Cardiovascular: Regular rate Respiratory: No distress, CTA bilaterally Abdomen: Soft, Nontender Extremities: Nontender Skin: Normal color, No rash Neurological: Alert, Oriented x3 Psychological: Normal affect Diagnostic/Tx/Re-eval Impressions Brain CT 07/12/19 22:16 IMPRESSION: Mild atrophy, mild diffuse white matter disease, and small lacunar infarcts. These were all present previously. No definite acute abnormalities. Electronically Signed: Elliott Sol MD at 23:14 EST , Service support , 07/12/19 22:16 Brain/Head without Contrast [CT] Stat Laboratory Results 07/12/19 07/12/19 22:20 22:20 WBC 9.7 RBC 5.08 Hgb 16.4 Hct 47.8 MCV 94.1 H MCH 32.3 H MCHC 34.3 RDW Std Deviation 40.8 RDW Coeff of Celeste 11.8 Plt Count 206 MPV 10.1 Immature Gran % (Auto) 0.400 Neut % (Auto) 55.7 Lymph % (Auto) 28.0 [place] % (Auto) 10.9 H Eos % (Auto) 4.0 Baso % (Auto) 1.0 Absolute Neuts (auto) 5.4 Absolute Lymphs (auto) 2.70 Nucleated RBC % 0 ESR 15 Sodium 139 Potassium 3.7 Chloride 107 Carbon Dioxide 30.0 Anion Gap 2 L BUN 11 Creatinine 0.99 Estim Creat Clear Calc 77.73 Est GFR (MDRD) Af Amer 100 Est GFR (MDRD) Non-Af 82 BUN/Creatinine Ratio 11.1 Glucose 111 H Calcium 8.6 C-React Prot Ext Range 5.45 H - Medical Decision Making Patient was given a dose of morphine and Zofran. On repeat evaluation he reports some improvement in pain, but still has episodes. He is given a dose of gabapentin. Patient states that he takes gabapentin at home although was not on his medication list. This was discussed with him that he should continue this medication. He will be given a short course of Hymera for pain at home. He stated that he had previously signed a pain management contract with his PCP. I advised him that typically when he has an acute flare of pain in the emergency room we can write for short course only. I encouraged patient to be forthcoming with his doctor about this and his PCP can review his ED notes. ED Disposition - Plan for ED Patient: Disposition: Home or Assisted Living Diagnosis: Cephalgia Instructions: HEADACHE, Unspecified Prescriptions: Hydrocodone Bitart/Apap 5-325 [Hymera 5MG-325MG] 1 tablet PO Q6H PRN PRN 3 Days #10 tablet PRN Reason: Pain Transmission Status: Sent to [facility] #30 Referrals: Levon Corral MD [Primary Care Provider] - 1 Week if not improving
[2019-07-12 22:35] LABS: Erythrocyte Sedimentation Rate 15 mm/hr (0-20)
[2019-07-12 22:37] LABS: Absolute Neutrophil Count 5.4 X10^3/uL (2.0-7.7); Eosinophil# 0.39 X10^3/uL; Hematocrit 47.8 % (40-54); Hemoglobin 16.4 g/dL (13.0-16.5); Mean Corp Hgb Conc 34.3 g/dL (32-36); Mean Corpuscular Hgb 32.3 pg (27.0-32.0); Mean Corpuscular Volume 94.1 fL (80-94); Mean Platelet Vol. 10.1 fl (6.2-12.0); Monocyte# 1.05 X10^3/uL; Monocyte% 10.9 % (0-10); NRBC Flagged by Analyzer 0 % (0-5); Neutrophil # 5.37 X10^3/uL (2.7-7.7); Neutrophil % 55.7 % (47-70); Platelet Count 206 K/mm3 (150-450); RBC Distribution Width CV 11.8 % (11.6-14.6); RBC Distribution Width SD 40.8 fl (35.1-43.9); Red Blood Count 5.08 M/mm3 (4.6-6.2); White Blood Count 9.7 K/mm3 (4.4-11.0)
[2019-07-12] MEDS: 0.9% Normal Saline 1,000 ML 150 ML IV (22:38)
[2019-07-12] MEDS: Ondansetron 4 MG/2 ML Vial IV (22:38)
[2019-07-12] MEDS: Morphine 4 MG/ML Syringe IV (22:40)
[2019-07-12 22:42] LABS: Anion Gap 2 (5-15); BUN 11 mg/dL (7-18); BUN/Creat Ratio 11.1 RATIO (10-20); CRP 5.45 mg/L (0.0-3.0); Calcium,Total 8.6 mg/dL (8.5-10.1); Chloride 107 mmol/L (98-107); Creatinine, Serum 0.99 mg/dL (0.70-1.30); EST Glomerular Filtration Rate 82 mL/min (>60); Est Glom Filt Rate - Afr Amer 100 mL/min (>60); Estimated Creatinine Clearance 77.73 ml/min; Glucose 111 mg/dL (74-106); Potassium 3.7 mmol/L (3.5-5.1); Sodium Level 139 mmol/L (136-145)
[2019-07-12] MEDS: Gabapentin 300 MG Capsule PO (23:42)
[2019-07-13] MEDS: HYDROcodone Bitartrate/Apap 5/325 Tablet PO (00:03)
[2019-07-13 00:08] VITALS: BP 159/92; PULSE 54; RESP 16; O2SAT 94
== END 2019-07-13 00:09 | disposition home or self-care (01) ==
PROVIDERS: Emergency Provider Emergency Medicine; Family Provider Internal Medicine; PCP Internal Medicine
DX: R51 Headache (principal); I71.4 Abdominal aortic aneurysm, without rupture; J44.9 Chronic obstructive pulmonary disease, unspecified; K21.9 Gastro-esophageal reflux disease without esophagitis; E03.9 Hypothyroidism, unspecified; E78.00 Pure hypercholesterolemia, unspecified; G47.30 Sleep apnea, unspecified; F17.200 Nicotine dependence, unspecified, uncomplicated; Z90.49 Acquired absence of other specified parts of digestive tract; I48.92 Unspecified atrial flutter
CPT/HCPCS: 70450; 80048; 85025; 85652; 86140; 96361; 96374; 96375; 99285; J7030; A4216; J2405

== ENCOUNTER 2019-10-08 22:01 | Emergency (ER) | payer MEDICARE, MEDICAID, SELFPAY ==
[2019-10-08 22:02] VITALS: BP 134/74; PULSE 61; RESP 18; TEMP 36.8; O2SAT 95; BMI 35.0
--- NOTE | 2019-10-08 22:18 | CT_ITS ---
STUDY: CTA OF THE BRAIN REASON FOR EXAM: Male, 59 years old. LEFT VISUAL CHANGES AND LEFT ARM TIGHTNESS RADIATION DOSAGE (If Supplied By Facility): CTDIvol = ( 29.54 ) mGy, DLP = ( 1312.84 ) mGycm TECHNIQUE: CT angiography was performed with a multi-detector CT scanner. Data acquisition was obtained from the skull base through the vertex following intravenous administration of IV 100mL Isovue-370. MIP images were reconstructed from the axial data set. Post-processing of the angiographic images was performed, with multiplanar reformation and 3D reconstruction. Individualized dose optimization techniques were used for this CT. COMPARISON: CT 07/12/2019 FINDINGS: Intracranial ICA calcifications. Otherwise: Normal bilateral petrous carotid arteries. Normal right cavernous carotid artery with a normal supraclinoid bifurcation. Normal left cavernous carotid artery with a normal supraclinoid bifurcation. Normal right A1 segments of the anterior cerebral artery. Normal left A1 segments of the anterior cerebral artery. Normal intact anterior communicating artery (ACOM). Normal bilateral A2 segments of the anterior cerebral arteries. Normal right M1 and M2 segments of the middle cerebral arteries, with a normal M1 bifurcation. Normal left M1 and M2 segments of the middle cerebral arteries, with a normal M1 bifurcation. There is non-visualization of the right posterior communicating artery (PCOM). There is non-visualization of the left posterior communicating artery (PCOM). Normal bilateral vertebral arteries. Normal basilar artery with a normal basilar bifurcation. The visualized bilateral superior cerebellar (SCA) arteries are normal. Normal bilateral P1, P2 and visualized P3 segments of the posterior cerebral arteries. There is no demonstrated aneurysm of the nikolai of Vaz. There is no demonstrated abnormality of the visualized brain. Left lens replacement. CT/CTA Head W/WO Contrast IMPRESSION: No CTA evidence of significant intracranial arterial pathology. Electronically Signed: Wale Valdivia MD at 23:46 EDT Tel , Service support ,
--- NOTE | 2019-10-08 22:18 | EKG12_ITS ---
Test Reason : NEURO Blood Pressure : / mmHG Vent. Rate : 054 BPM Atrial Rate : 054 BPM P-R Int : 214 ms QRS Dur : 090 ms QT Int : 456 ms P-R-T Axes : 041 002 069 degrees QTc Int : 432 ms Sinus bradycardia with 1st degree A-V block Otherwise normal ECG Confirmed by JULIANA MARIE, JAZMYNE ([id number]), telegraph editor JUAN ROCK ([id number]) on 10/13/2019 2:25:17 PM Referred By: SALUD Confirmed By:JORDAN ANDREWS MD
[2019-10-08 22:21] LABS: Bedside Glucose 108 mg/dL (70-110)
[2019-10-08 22:29] VITALS: BMI 35.0
[2019-10-08 23:01] LABS: Hematocrit 45.5 % (40-54); Hemoglobin 15.7 g/dL (13.0-16.5); Mean Corp Hgb Conc 34.5 g/dL (32-36); Mean Corpuscular Hgb 32.4 pg (27.0-32.0); Mean Corpuscular Volume 93.8 fL (80-94); Mean Platelet Vol. 10.1 fl (6.2-12.0); Platelet Count 189 K/mm3 (150-450); RBC Distribution Width CV 11.9 % (11.6-14.6); Red Blood Count 4.85 M/mm3 (4.6-6.2)
[2019-10-08 23:04] VITALS: BP 120/79; PULSE 54; RESP 15; O2SAT 93
[2019-10-08 23:08] LABS: Anion Gap 5 (5-15); BUN 14 mg/dL (7-18); BUN/Creat Ratio 14.5 RATIO (10-20); Calcium,Total 8.7 mg/dL (8.5-10.1); Chloride 109 mmol/L (98-107); Creatinine, Serum 0.96 mg/dL (0.70-1.30); EST Glomerular Filtration Rate 85 mL/min (>60); Est Glom Filt Rate - Afr Amer 102 mL/min (>60); Estimated Creatinine Clearance 81.83 ml/min; Glucose 96 mg/dL (74-106); Potassium 3.7 mmol/L (3.5-5.1); Sodium Level 141 mmol/L (136-145)
[2019-10-08 23:52] VITALS: BP 132/82; PULSE 55; RESP 15; O2SAT 95
--- NOTE | 2019-10-08 23:54 | ED.DCSUM_ITS ---
- ER Visit Summary Date of Service: 10/08/19 Chief Complaint: Left eye loss of vision History of Present Illness: The patient is a 59 M history of lacunar infarcts, atrial flutter on Eliquis and COPD. Patient states that for the last 4 days or so he has had floaters in his left eye and now decreased vision. No pain. No other neurological symptoms. No significant headache. No trauma. No weakness or numbness to his upper or lower extremities. No ataxia. No prior history. Patient has had cataract surgery bilaterally. Physical Examination: Older male no acute distress vital signs stable afebrile. H EENT exam unremarkable. No facial droop. Round reactive laser motions are intact. No palsy. Normal speech. Lungs clear to auscultation. Heart regular rhythm no murmur. Rate about 60. Abdomen soft nontender. Patient is moving all 4 extremities. Neurovascular intact. 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 Dorsi plantarflexion intact. Neurologically is awake and alert. He has decreased vision in his left eye otherwise no acute neurological findings. Normal motor strength and sensation of both upper and lower extremities. No drift. No ataxia. Test Results: CTA of his head neck showed no acute abnormality. Read by the radiologist reviewed by me. EKG sinus rhythm rate of 54 no acute signs of [place] or ischemia. Sinus bradycardia. CBC normal. White count of 9. Hemoglobin 15. Chemistries normal. Visual acuity was unable to standing his left eye it was too blurred. Right eye was 20/70. Bilaterally is 20/50 and this is with his glasses on. Emergency Department Course and Treatment: Patient with painless loss of vision of his left eye after having floaters. Repeat exam no change at 11:50 PM. Patient sees [facility]. I am going to speak with the on-call physician for them and have them follow-up first thing in the morning. Treatment Plan: See the machine loader in the morning. Continue his current medications. Disposition: Discharge Impression: Painless loss of vision left eye Anticoagulated on Eliquis Hx of A- flutter This note was generated with [employer] dictation software. It may contain incorrect words, spelling, and punctuation that were not noted in review of the chart prior to signing ED Disposition - Plan for ED Patient: Referrals: eLvon Corral MD [Primary Care Provider] -
--- NOTE | 2019-10-09 00:02 | DCINST.ED_ITS ---
ED Disposition - Plan for ED Patient: Disposition: Home or Assisted Living Instructions: ED Blurred Vision Referrals: Bhanu Chong MD [STAFF PHYSICIAN] - As soon as possible Additional Instructions: Call the [facility] first thing tomorrow morning at 8 AM. Tell them you were in the emergency department tonight. Tell them you have loss of vision in her left eye. And they will see you Saturday morning. You need to call them though first.
[2019-10-09 00:05] VITALS: BP 132/82; PULSE 50; RESP 15; O2SAT 94
== END 2019-10-09 00:05 | disposition home or self-care (01) ==
PROVIDERS: Emergency Provider Emergency Medicine; PCP Internal Medicine
DX: H54.62 Unqualified visual loss, left eye, normal vision right eye (principal); Z79.01 Long term (current) use of anticoagulants; I48.92 Unspecified atrial flutter; J44.9 Chronic obstructive pulmonary disease, unspecified; Z86.73 Personal history of transient ischemic attack (TIA), and cerebral infarction without residual deficits; Z98.41 Cataract extraction status, right eye; Z72.0 Tobacco use; K21.9 Gastro-esophageal reflux disease without esophagitis
CPT/HCPCS: 70496; 80048; 82962; 85027; 93005; 99285; Q9967

== ENCOUNTER 2020-01-13 04:24 | Emergency (ER) | payer MEDICARE, MEDICAID, SELFPAY ==
[2020-01-13 04:25] VITALS: BP 173/106; PULSE 54; RESP 18; TEMP 36.4; O2SAT 93; BMI 35.5
--- NOTE | 2020-01-13 04:31 | CT_ITS ---
STUDY: CT ABDOMEN AND PELVIS WITHOUT CONTRAST REASON FOR EXAM: Male, 59 years old. RT FLANK PAIN X A FEW DAYS -- HX:HLD,HTN,COPD,AAA WITH STENT REPAIR,CHOLECYSTECTOMY RADIATION DOSAGE (If Supplied By Facility): CTDIvol = ( 17.47 ) mGy, DLP = ( 912.14 ) mGycm TECHNIQUE: Transaxial images were obtained from the dome of the diaphragm to the symphysis pubis without oral contrast, and without intravenous contrast. Sagittal and coronal images were reconstructed. Individualized dose optimization techniques were used for this CT. COMPARISON: June 23, 2013 CT abdomen and pelvis, May 18, 2016 CT abdomen and pelvis FINDINGS: The visualized lung bases are unremarkable. The visualized portions of the heart are within normal limits. Normal liver. There is non-visualization of the gallbladder, which may be secondary to either contraction or a prior cholecystectomy. Normal spleen. Normal pancreas. Normal bilateral adrenal glands. Normal right kidney. Normal left kidney. Normal visualized stomach. Normal small intestine. There is abundant stool in the colon from cecum to the rectum. The appendix is visualized and appears normal. There is a stent in the aorta just at the level of the mesenteric artery. The aorta measures up to 3.8 to 2.5 cm at that level similar to the prior study. The infrarenal aorta measures 4.0 x 3.8 cm unchanged since the prior study. There are bilateral iliac stents demonstrated. There is a persistent rim of calcification visualized. There are bilateral common iliac stents. There is a aneurysmal dilatation of the right common iliac measured 4.3 cm on the right and 2.7 cm on the left. Allowing for differences in technique this is enlarged on the right when measured 2.5 cm. On the left side it is similar to prior study May 18, 2016 measuring 2.3 cm. Normal inferior vena cava. Normal retroperitoneum. The bladder is distended. The prostate measures 5.8 x 5.6 cm. Normal abdominal wall. There are diffuse degenerative changes of the visualized lumbar spine. There are peripheral right inguinal left inguinal postoperative change. CT/Abdomen/Pelvis without Cont IMPRESSION: There is an aortic stent is mild aneurysmal dilatation relatively stable when compared to prior study. However the right common iliac is much larger than on the prior study May 18, 2016. The caliber of the right common iliac artery now measures up to 4.3 cm on the right side when on prior study it only measured 2.5 cm. Recommend appropriate vascular consult and follow-up. Stable mild aneurysmal dilatation of left common iliac. Constipation. Degenerative changes in the thoracolumbar spine. No visualized renal ureteral bladder calculi. Enlargement of the prostate. N.B. : The above information has been verbally conveyed by Adrianne Perez MD to Dr. Mayr Carias MD, on 01/13/2020 05:32:44 (ET). Electronically Signed: Adrianne Perez MD at 5:33 EDT Tel , Service support ,
--- NOTE | 2020-01-13 04:32 | ED.VIS.GEN ---
History of Present Illness Chief Complaint: Flank Pain Informant: Patient Onset: Days Context: Gradual Onset Timing: Waxes and wanes Current Severity: Moderate Maximum Severity: Severe Narrative: Patient presents secondary to right flank pain. He states his been building over the past 3 days, more severe tonight. He has a history of a bad back and initially thought that is what was wrong. Pain does not shoot down his legs. He denies of the pain wraps to the groin. He denies fever or chills. No nausea or vomiting. He denies any urinary symptoms. - Past Medical History (1) AAA (abdominal aortic aneurysm) Status: Chronic (2) COPD (chronic obstructive pulmonary disease) Status: Chronic (3) Chronic atrial flutter Status: Chronic (4) Esophageal reflux Status: Chronic (5) Hypothyroidism Status: Chronic (6) Lumbago Status: Chronic (7) Pure hypercholesterolemia Status: Chronic (8) Sleep apnea Status: Chronic Past Medical History - Allergies and Home Meds Allergies/Adverse Reactions: Allergies prednisone Adverse Reaction (Verified 01/13/20 04:28) Itching Primary Care Physician: Levon Corral MD [Primary Care Provider] - Prior records reviewed: Yes Surgical History: cholecystectomy, - - abdominal aortic anuerysm repair. Lives: Spouse/ Significant Other Smoking Status: Current every day smoker - Family History Maternal Family History: Reports: No pertinent history Review of Systems General: Denies: Chills, Fever Eyes: Denies: Visual changes - bilaterally ENT: Denies: Bilateral ear pain Cardiovascular: Denies: Chest pain Respiratory: Reports: Cough. Denies: Dyspnea Gastrointestinal: Reports: Abdominal pain - Right flank. Denies: Vomiting, Diarrhea Musculoskeletal: Reports: Back pain - Right flank. Denies: Extremity Pain Skin: Denies: Rash Neurological: Denies: Headache Hematologic: Denies: Easy bruising, Easy bleeding Allergy: Denies: Uticaria Physical Exam Vital Signs/Narrative: Vital Signs Temp Pulse Resp BP Pulse Ox 01/13/20 04:25 97.5 F L 54 L 18 173/106 H 93 Inital Vital Signs reviewed: Yes General: Well nourished, Well developed Head: Normocephalic ENT: Moist mucous membranes Neck: Supple Cardiovascular: Regular rate, Regular rhythm Respiratory: No distress, Wheezing Abdomen: Soft, Tender - Mild left upper quadrant tenderness. Back: - - No midline thoracic or lumbar tenderness. No CVA tenderness. Reproducible tenderness in the right lateral flank. No overlying skin change or rash. Extremities: Nontender Skin: Normal color Neurological: Alert, Oriented x3 Psychological: Normal affect Diagnostic/Tx/Re-eval Impressions Abdomen/Pelvis CT 01/13/20 04:31 IMPRESSION: There is an aortic stent is mild aneurysmal dilatation relatively stable when compared to prior study. However the right common iliac is much larger than on the prior study May 18, 2016. The caliber of the right common iliac artery now measures up to 4.3 cm on the right side when on prior study it only measured 2.5 cm. Recommend appropriate vascular consult and follow-up. Stable mild aneurysmal dilatation of left common iliac. Constipation. Degenerative changes in the thoracolumbar spine. No visualized renal ureteral bladder calculi. Enlargement of the prostate. N.B. : The above information has been verbally conveyed by Adrianne Perez MD to Dr. Mary Carias MD, on 01/13/2020 05:32:44 (ET). Electronically Signed: Adrianne Perez MD at 5:33 EDT Tel , Service support , 01/13/20 04:31 Abdomen/Pelvis without Cont [CT] Stat Laboratory Results 01/13/20 01/13/20 01/13/20 04:30 04:30 05:00 WBC 10.4 RBC 4.91 Hgb 15.7 Hct 45.9 MCV 93.5 MCH 32.0 MCHC 34.2 RDW Std Deviation 40.3 RDW Coeff of Celeste 11.8 Plt Count 198 MPV 10.2 Immature Gran % (Auto) 0.500 Neut % (Auto) 48.4 Lymph % (Auto) 35.0 Simpson % (Auto) 10.2 H Eos % (Auto) 5.2 H Baso % (Auto) 0.7 Absolute Neuts (auto) 5.0 Absolute Lymphs (auto) 3.62 Nucleated RBC % 0 Sodium 139 Potassium 3.9 Chloride 106 Carbon Dioxide 26.0 Anion Gap 7 BUN 14 Creatinine 0.86 Estim Creat Clear Calc 88.37 Est GFR (MDRD) Af Amer 117 Est GFR (MDRD) Non-Af 97 BUN/Creatinine Ratio 16.4 Glucose 113 H Calcium 8.8 Total Bilirubin 0.40 Direct Bilirubin 0.11 AST 21 ALT 24 Alkaline Phosphatase 81 Total Protein 7.4 Albumin 3.2 Globulin 4.2 Lipase 193 Urine Color Yellow Urine Clarity Clear Urine pH 5.0 Ur Specific Lyman 1.020 Urine Protein Negative Urine Glucose (UA) Normal Urine Ketones Negative Urine Occult Blood 25 H Urine Nitrite Negative Urine Bilirubin Negative Urine Urobilinogen Normal Ur Leukocyte Esterase Negative Urine RBC 0 SEEN Urine WBC 0 SEEN Ur Squamous Epith Cells 0 SEEN Urine Bacteria 0 SEEN Urine Mucus 0 SEEN - Medical Decision Making Patient is given morphine 4 mg, Zofran 4 mg, Toradol 15 mg, and IV fluids. On repeat evaluation he is resting more comfortably but does still have some pain. I was called by radiologist for the noted increase in the right common iliac aneurysm. There is no other obvious source of abnormality that would explain his symptoms. Patient was previously seen at the [facility] for his aortic aneurysm. He would prefer transfer back there for evaluation as needed. I spoke with Dr. Buchanan, vascular surgery at [facility] and patient has been accepted in transfer. ED Disposition - Plan for ED Patient: Disposition: [facility] - Main Diagnosis: Iliac artery aneurysm Referrals: Levon Corral MD [Primary Care Provider] -
[2020-01-13] MEDS: Ondansetron 4 MG/2 ML Vial IV (04:36)
[2020-01-13] MEDS: Morphine 4 MG/ML Syringe IV ×2 (04:36→08:50)
[2020-01-13] MEDS: Ketorolac 15 MG/ML Vial IV (04:36)
[2020-01-13 04:42] LABS: Absolute Lymphocyte Count 3.62 X10^3/uL (0.83-4.51); Basophil# 0.07 X10^3/uL; Basophil% 0.7 % (0-1); Eosinophil# 0.54 X10^3/uL; Eosinophils% 5.2 % (0-5); Hematocrit 45.9 % (40-54); Hemoglobin 15.7 g/dL (13.0-16.5); Lymphocyte # 3.62 X10^3/ul (4.0); Mean Corp Hgb Conc 34.2 g/dL (32-36); Mean Corpuscular Volume 93.5 fL (80-94); Mean Platelet Vol. 10.2 fl (6.2-12.0); Monocyte# 1.06 X10^3/uL; Monocyte% 10.2 % (0-10); NRBC Flagged by Analyzer 0 % (0-5); Neutrophil # 5.01 X10^3/uL (2.7-7.7); Neutrophil % 48.4 % (47-70); Platelet Count 198 K/mm3 (150-450); RBC Distribution Width CV 11.8 % (11.6-14.6); RBC Distribution Width SD 40.3 fl (35.1-43.9); Red Blood Count 4.91 M/mm3 (4.6-6.2); White Blood Count 10.4 K/mm3 (4.4-11.0)
[2020-01-13] MEDS: 0.9% Normal Saline 1,000 ML 150 ML IV (04:43)
[2020-01-13 04:56] LABS: AST(SGOT) 21 U/L (15-37); Alanine Aminotransfer ALT/SGPT 24 U/L (16-61); Albumin, Serum 3.2 g/dL (3.2-5.0); Alkaline Phosphatase 81 U/L (45-117); Anion Gap 7 (5-15); BUN 14 mg/dL (7-18); BUN/Creat Ratio 16.4 RATIO (10-20); Bilirubin, Direct 0.11 mg/dL (0.00-0.30); Calcium,Total 8.8 mg/dL (8.5-10.1); Chloride 106 mmol/L (98-107); Creatinine, Serum 0.86 mg/dL (0.70-1.30); EST Glomerular Filtration Rate 97 mL/min (>60); Est Glom Filt Rate - Afr Amer 117 mL/min (>60); Estimated Creatinine Clearance 88.37 ml/min; Globulin 4.2 g/dL (2.2-4.2); Glucose 113 mg/dL (74-106); Lipase 193 U/L (73-393); Potassium 3.9 mmol/L (3.5-5.1); Protein, Total 7.4 g/dL (6.4-8.2); Sodium Level 139 mmol/L (136-145)
[2020-01-13 05:08] LABS: Bacteria 0 SEEN /hpf (None Seen); Mucous, Urine 0 SEEN /hpf (<or=2+); Red Blood Cells-Urine 0 SEEN /hpf (0-5); Squamous Epithelial Cells - UA 0 SEEN /hpf (0-5); White Blood Cells 0 SEEN /hpf (0-5)
[2020-01-13 05:17] LABS: Glucose, Dipstick Normal (Normal); Ketone-Dipstick Negative (Negative); Leukocyte Esterase-Dipstick Negative /ul (Negative); Nitrite-Dipstick Negative (Negative); Occult Blood-Urine 25 /ul (Negative); Protein-Dipstick Negative (Negative); Urine Bilirubin Dipstick Negative (Negative); Urine Urobilinogen Normal (Normal)
[2020-01-13 05:18] LABS: Color, Urine Yellow (Yellow); Urine Clarity Clear (Clear)
[2020-01-13 07:20] VITALS: BP 126/86; PULSE 54; RESP 18; O2SAT 95
[2020-01-13 08:56] VITALS: BP 134/79; PULSE 68; RESP 17; TEMP 36.2; O2SAT 96
== END 2020-01-13 09:00 | disposition short-term general hospital (02) ==
PROVIDERS: Emergency Provider Emergency Medicine; PCP Internal Medicine
DX: I72.3 Aneurysm of iliac artery (principal); E03.9 Hypothyroidism, unspecified; E78.5 Hyperlipidemia, unspecified; G47.30 Sleep apnea, unspecified; I10 Essential (primary) hypertension; J44.9 Chronic obstructive pulmonary disease, unspecified; K21.9 Gastro-esophageal reflux disease without esophagitis; N40.0 Benign prostatic hyperplasia without lower urinary tract symptoms; Z90.49 Acquired absence of other specified parts of digestive tract; K59.00 Constipation, unspecified; F17.200 Nicotine dependence, unspecified, uncomplicated; E78.00 Pure hypercholesterolemia, unspecified
CPT/HCPCS: 74176; 80048; 80076; 81001; 83690; 85025; 96361; 96374; 96375; 96376; 99285; J7030; A4216; J2405

== ENCOUNTER → 2020-03-17 12:53 | Outpatient (CLI) | payer MEDICARE, MEDICAID, SELFPAY ==
--- NOTE | 2020-03-17 12:57 | CT_ITS ---
STUDY: LOW DOSE CT LUNG CANCER SCREENING REASON FOR EXAM: Male, 59 years old. LUNG SCREENING, SMOKER X 40 YRS X 1.5 PPD, QUIT A COUPLE MONTHS AGO, COPD, HTN, RECENT AAA REPAIR RADIATION DOSAGE (If Supplied By Facility): CTDIvol = ( 4.02 ) mGy, DLP = ( 146.47 ) mGycm TECHNIQUE: No contrast was administered. Low dose technique was utilized (average mAS-38 and kVp 120). 1.25 mm axial source images with a slice interval of 1.25-mm were reconstructed in lung windows. 2.5 mm axial source images with a slice interval of 2.5-mm were reconstructed in lung windows. 5.0 mm axial source images with a slice interval of 5.0-mm were reconstructed in soft tissue windows. Nodule measured using lung windows on PACS and/or independent workstation with automated measurement of minimum and maximum diameter. Nodule measurement reported as average diameter rounded to the nearest whole number. Growth is defined as an increase ins size of greater than 1.5 mm. COMPARISON: None. NODULES: No suspicious nodule is seen. Emphysema: Hyperinflation. Diffuse emphysematous changes with bullous formation in both lungs worse in the upper lobes. A dominant bulla is seen in the right upper lobe measuring 9.8 cm x 10.8 cm. Is also evidence of a subpleural cystic changes in the upper lobes suggests a possible scarring. Endobronchial lesion: None Aorta: Unremarkable Coronary arteries: Unremarkable. Other chest and abdominal findings: Degenerative changes of the thoracic vertebrae. CT/Low Dose CT Lung Screening IMPRESSION: Lung-RADS category 2 - Continue annual screening with LDCT in 12 months. IMPORTANT NOTES FOR USE: ACR Lung-RADS Version 1.0 Assessment Categories Release Date: November 02, 2013 Category: Coded 0-4 bases on nodule(s) with highest degree of suspicion. Negative screen is defined as categories 1 and 2; a positive screen is defined as categories 3 and 4. Category 3 and 4A nodules that are unchanged on interval CT should be coded as category 2, and individuals returned to screening in 12 months. Category 4X: Category 3 or 4 nodules with additional imaging findings that increase the suspicion of lung cancer, such as spiculation, GGN that doubles in size in 1 year, enlarged lymph notes, etc. Category Modifiers: S (significant finding unrelated to lung cancer) and C (prior history of treated lung cancer) may be added to the 0-4 Lung-RADS Electronically Signed: Carlos Farias, at 14:45 EDT , Service support ,
== END ==
PROVIDERS: PCP Internal Medicine; Referring Provider Internal Medicine Pulmonary Disease; Visit Provider Internal Medicine Pulmonary Disease
DX: Z12.2 Encounter for screening for malignant neoplasm of respiratory organs (principal); Z87.891 Personal history of nicotine dependence
CPT/HCPCS: G0297

== ENCOUNTER 2020-07-27 13:59 | Emergency (ER) | payer MEDICARE, MEDICAID, SELFPAY ==
[2020-07-27 14:00] VITALS: BP 129/89; PULSE 63; RESP 18; TEMP 35.4; O2SAT 93; BMI 36.1
--- NOTE | 2020-07-27 14:17 | ED.DCSUM_ITS ---
- ER Visit Summary Date of Service: 07/27/20 Chief Complaint: Back pain History of Present Illness: The patient is a 59 M who presents with back pain that is been getting worse over the past 3 days. Patient states he has a history of chronic back pain. Patient states that it has gotten worse over the past 3 days. Patient denies any trauma or injury. Patient describes the pain is constant burning but sharp at times. Patient states the pain is over the thoracic and lumbar area. Patient states the pain does radiate to his right lower extremity. Patient states it is worse with movement. Patient states nothing seems to help with the pain. Patient states he has an appointment with a back doctor in [place] on Saturday. Physical Examination: Vital signs are stable. Patient is afebrile. Patient is in no acute distress. Musculoskeletal exam reveals tenderness over the right t horacic and lumbar paraspinal muscles. There is mild midline thoracic tenderness. There is no edema or ecchymosis. There is no bony crepitance or step-off noted. Strength is 5/5 bilateral knee lower extremities. Deep tendon reflexes are 2+/4 bilaterally in the patella and Achilles reflexes. There are no sensory deficits noted. There is good range of motion of the thoracic and lumbar spine. Emergency Department Course and Treatment: Patient was given a prescription for a short course of [place]. OARRS report was reviewed and patient has not had any prescriptions for opiates in the last 10 days. Patient was instructed to follow-up with his back doctor as well as his primary care physician as scheduled. Patient understood and was agreeable with the plan. All questions were answered. Disposition: Discharge home Impression: Acute on chronic back pain This note was generated with [employer] dictation software. It may contain incorrect words, spelling, and punctuation that were not noted in review of the chart prior to signing ED Disposition - Plan for ED Patient: Disposition: Home or Assisted Living Diagnosis: Acute exacerbation of chronic low back pain Instructions: ED Back Pain (Acute or Chronic) Prescriptions: Hydrocodone Bitart/Apap 5-325 [[place]field 5MG-325MG] 1 tab PO Q6H PRN PRN 3 Days #10 tab PRN Reason: Pain Prescription Printed Referrals: Levon Corral MD [Primary Care Provider] - 3-5 Days
[2020-07-27 14:36] VITALS: BP 120/77; PULSE 60; PULSE 61; RESP 20; O2SAT 95; O2SAT 96
== END 2020-07-27 14:52 | disposition home or self-care (01) ==
PROVIDERS: Emergency Provider Emergency Medicine; PCP Internal Medicine
DX: M54.5 Low back pain (principal); G89.29 Other chronic pain; R20.2 Paresthesia of skin; R21 Rash and other nonspecific skin eruption; R19.7 Diarrhea, unspecified; M54.2 Cervicalgia; E03.9 Hypothyroidism, unspecified; Z87.891 Personal history of nicotine dependence; I48.91 Unspecified atrial fibrillation; I48.92 Unspecified atrial flutter
CPT/HCPCS: 99282

== ENCOUNTER 2020-12-14 10:58 | Emergency (ER) | payer MEDICARE, MEDICAID, SELFPAY ==
[2020-12-14 10:59] VITALS: BP 141/82; PULSE 68; RESP 15; TEMP 36.3; O2SAT 94; BMI 36.5
--- NOTE | 2020-12-14 11:16 | ED.VIS.BACK ---
HPI History of Present Illness Chief Complaint: Back Detail of Chief Complaint: Back pain for about 2 months Informant: patient Onset/Context/Timing Maximum Severity: Severe Worsened by: improves with Movement and Bending Narrative Narrative: Patient presents with low back pain for several months. He denies injury. Patient states that he had an MRI about a month ago of his back but does not know any results. He has had pain rating down his right leg ever since the pain started months ago. Patient denies fever or recent illness. He denies any trauma to his back. He has had issues with chronic back pain in the past. Patient states that 2 months ago he had a injection in his back with pain management at [facility] but cannot remember who takes care of him there. Patient denies loss of bowel or bladder control. He denies weakness in the extremities. Prior similar symptoms: Yes [facility] Medical History (Updated 12/14/20 @ 12:[address] Mil Kerr, DO) Back pain Hypertension Hypothyroidism Home Medications amitriptyline 25 mg PO QHS 06/23/13 [History Last Taken 10/30/16] Lovastatin [Mevacor] 40 mg PO QHS 11/18/14 [History Last Taken 10/30/16] lisinopril 10 mg PO DAILY 11/18/14 [History Last Taken 10/31/16] Stool Softener 50 mg PO DAILY 07/10/16 [History Last Taken Unknown] levothyroxine 150 mcg PO DAILY 11/01/16 [History Last Taken Unknown] naproxen 500 mg PO BID PRN #20 tab 06/12/18 [Rx Last Taken Unknown] apixaban 5 mg PO DAILY 07/12/19 [History Last Taken Unknown] gabapentin 300 mg PO QHS 10/08/19 [History Last Taken Unknown] hydrocodone-acetaminophen 1 tab PO Q4H PRN PRN 2 Days #10 tablet 12/14/20 [Rx Last Taken Unknown] Allergy/AdvReac Type Severity Reaction Status Date / Time prednisone AdvReac Itching Verified 12/14/20 10:58 Social History Smoking Status: Current some day smoker tobacco type: cigarettes ROS ROS ED Constitutional Constitutional ED: Reports systems reviewed and no addt'l complaints, except as documented; Denies body ache(s), change in weight or chills Eyes Eyes: Denies acute decrease in peripheral vision, change in vision, double vision or loss of vision ENT ENT ED: Reports none; Denies ear pain, lip swelling, loss taste/smell, neck pain, otalgia or sore throat Cardiovascular Cardiovascular: Reports none; Denies abdominal pain, chest pain with activity, leg edema, lightheadedness, palpitations, rapid heart rate or syncope Respiratory/Chest Respiratory/Chest: Reports none; Denies change in mental status, dry cough, dyspnea, hemoptysis, shortness of breath at rest or shortness of breath with exertion Gastrointestinal Gastrointestinal: Reports none; Denies abdominal pain, change in stool character, diarrhea, hematemesis, hematochezia, melena, rectal bleeding or vomiting Genitourinary Genitourinary ED: Reports none; Denies abdominal discomfort, anuria, dysuria, genital pain or polyuria Musculoskeletal Musculoskeletal: Reports none and back pain; Denies arthralgias, difficulty walking, extremity pain, muscle weakness or myalgias Integumentary Reports none; Denies abscess or rash Neurologic Neurologic: Reports none; Denies abnormal gait, confusion, focal weakness, frequent falls, headache(s), loss of vision, numbness, paresthesias, radicular pain, vertigo or weakness Psychiatric Psychiatric: Reports systems reviewed and no addt'l complaints, except as documented and none; Denies behavioral changes, confusion, difficulty concentrating, hallucinations, suicidal ideation, tactile hallucinations or visual hallucinations Endocrine Endocrinology: Denies none, cold intolerance, excessive sweating, fatigue or heat intolerance Hematologic/Lymphatic Hematologic/Lymphatic: Reports none; Denies anemia, easy bleeding or easy bruising Allergic/Immunologic Allergic/Immunologic ED: Denies as per HPI, none, lip swelling, mouth swelling, throat swelling, tongue swelling or hives EXAM Physical Exam Const Vital Signs: 12/14/20 10:59 Temperature 97.4 F L Temperature Source Temporal Pulse Rate 68 Respiratory Rate 15 Blood Pressure 141/82 H Blood Pressure Mean 101 Pulse Ox 94 Oxygen Delivery Method Room Air Positive well nourished and well developed General Appearance ED: well developed and NAD HEENT Reports TM's clear and moist mucous membranes normocephalic and atraumatic; Negative for trauma or tenderness Tympanic Membrane ED: Yes TM's clear Eyes PERRL and EOMs intact bilaterally General Eye ED: Negative for pale conjunctiva or scleral icterus Neck no lymphadenopathy, supple and no JVD General: Negative for tenderness Chest Wall inspection of chest normal and palpation of chest normal Chest: Negative for tenderness Resp normal respiratory effort and clear to auscultation bilaterally Effort and Inspection: Negative for respiratory distress or pain with movement Auscultation: Negative for rhonchi, wheezes or diminished lung sounds Cardio regular rate, regular rhythm, S1 normal heart sound, S2 normal heart sound and no murmurs Peripheral Pulses: pulses 2+ throughout GI normal to inspection, nondistended, normoactive bowel sounds, soft to palpation, non-tender, non-distended and no masses Back/Spine no CVA tenderness and no thoracic nor lumbar tenderness Back/Spine Narrative: Negative straight leg raises bilaterally. Deep tendon reflexes are plus 2 out of 4 bilaterally at the patella and Achilles. Patient has normal L5 extension bilaterally. Patient has normal sensation to light touch. Cervical Spine: Negative for paracervical muscle tenderness Thoracic Spine / Upper Back: paraspinal muscle tenderness Lumbar Spine / Lower Back: straight leg raise negative bilaterally Extremity normal to inspection General Extremety ED: Negative for edema General Extremity: Negative for edema Neuro oriented x3, CN's II-XII intact bilaterally, no sensory deficits noted and gait normal Sensorium / Orientation: awake, alert, oriented to person, oriented to place and oriented to time Motor Exam: strength 5/5 throughout and strength abnormal Psych mental status grossly normal Skin no rashes or lesions noted and no wounds MDM MDM MDM Narrative Medical decision making narrative: Patient received Dilaudid 1 mg IM and Zofran 4 mg IM and had good pain relief with that. I discussed case with patient's primary care physician Dr. Levon Corral who was able to read through patient's recent MRI report of his back which did not show any significant disc herniations or concerning emergent findings. At this point I will write him a prescription for few Gran[place] for pain and have patient follow-up with his pain management physician or primary care physician within next 3 to 5 days. Patient advised to return if worsening pain, weakness extremities, change in bowel or bladder function, or conditions worsen anyway. Discharge Plan Triage Chief Complaint: Back ED Provider: Mil Kerr Dx/Rx/DC Orders Clinical Impression: Acute exacerbation of chronic low back pain Instructions: ED Back Pain (Acute or Chronic) Prescriptions: New hydrocodone-acetaminophen [hydrocodone-acetaminophen] 1 TABLET tablet 1 tab PO Q4H PRN PRN (Reason: Pain) 2 Days Qty: 10 RF: 0 No Action amitriptyline 10 MG tablet 25 mg PO QHS RF: 0 lisinopril 5 MG tablet 10 mg PO DAILY RF: 0 Lovastatin [Mevacor] 40 MG tablet 40 mg PO QHS RF: 0 Stool Softener 50 MG capsule 50 mg PO DAILY RF: 0 levothyroxine 150 MCG tablet 150 mcg PO DAILY RF: 0 naproxen 500 MG tablet 500 mg PO BID PRN Qty: 20 RF: 0 apixaban 5 MG tablet 5 mg PO DAILY RF: 0 gabapentin 300 MG capsule 300 mg PO QHS RF: 0 Primary Care Provider: Levon Corral Referrals: Levon Corral MD [Primary Care Provider] - 3-5 Days Disposition Disposition: Home, self care
[2020-12-14] MEDS: HYDROmorphone 1 MG/ML Syringe IM (11:35)
[2020-12-14] MEDS: Ondansetron 4 MG/2 ML Vial IM (11:35)
[2020-12-14 12:51] VITALS: BP 140/85; PULSE 61; RESP 18; O2SAT 95
== END 2020-12-14 12:53 | disposition home or self-care (01) ==
PROVIDERS: Emergency Provider Emergency Medicine; PCP Internal Medicine
DX: M54.5 Low back pain (principal); G89.29 Other chronic pain; F17.210 Nicotine dependence, cigarettes, uncomplicated; I10 Essential (primary) hypertension; E03.9 Hypothyroidism, unspecified
CPT/HCPCS: 96372; 99283; J2405

== ENCOUNTER 2021-02-10 17:41 | Emergency (ER) | payer MEDICARE, MEDICAID, SELFPAY ==
[2021-02-10 17:42] VITALS: BP 163/98; PULSE 60; RESP 18; TEMP 36.1; O2SAT 99; BMI 35.4
--- NOTE | 2021-02-10 18:30 | RAD_ITS ---
INDICATION: cough EXAMINATION/TECHNIQUE: X-RAY - XR Chest 2 Views COMPARISON: 10/31/2016. FINDINGS: Unchanged emphysematous changes in the right upper lung. Increased interstitial markings. The cardiomediastinal silhouette is unremarkable. No pleural effusion or pneumothorax. Degenerative changes of the thoracic spine. RAD/Chest PA and Lateral IMPRESSION: Increased interstitial markings may represent edema and/or infection. Electronically Signed: Real Pantoja MD at 19:12 EDT Tel , Service support ,
--- NOTE | 2021-02-10 19:56 | EDS_ITS ---
HPI History of Present Illness Chief Complaint: Back Informant: patient and spouse/S.O. Onset/Context/Timing Onset: Days Timing: Continuous Quality: Dull and Aching Current Severity: Mild Maximum Severity: Mild Associated Symptoms Associated Symptoms: Numbness Narrative Narrative: 60-year-old male history of thoracic and abdominal aneurysms. History of a flutter on Eliquis. Had a 2-day history of upper back and lower neck discomfort and says he has been tingling and intermittent numbness in his upper extremities. He denies any weakness. Worse with movement. Denies any falls or trauma. He also has a 2-day history of a cough is having coughing makes his back hurt more. He has had a sore throat. Denies being short of breath. Says his cough has mild white phlegm. No hemoptysis. He denies chest pain. Reportedly he did obtain his Covid vaccinations. Prior similar symptoms: No Recent Illness/Hospitalization: No PFSH [facility] Medical History Atrial flutter Back pain Hypertension Hypothyroidism Home Medications amitriptyline 25 mg PO QHS 06/23/13 [History Last Taken 10/30/16] Lovastatin [Mevacor] 40 mg PO QHS 11/18/14 [History Last Taken 10/30/16] lisinopril 10 mg PO DAILY 11/18/14 [History Last Taken 10/31/16] Stool Softener 50 mg PO DAILY 07/10/16 [History Last Taken Unknown] levothyroxine 150 mcg PO DAILY 11/01/16 [History Last Taken Unknown] naproxen 500 mg PO BID PRN #20 tab 06/12/18 [Rx Last Taken Unknown] apixaban 5 mg PO DAILY 07/12/19 [History Last Taken Unknown] gabapentin 300 mg PO QHS 10/08/19 [History Last Taken Unknown] hydrocodone-acetaminophen 1 tab PO Q4H PRN PRN 2 Days #10 tablet 12/14/20 [Rx Last Taken Unknown] hydrocodone-acetaminophen 1 tab PO Q4H PRN 5 Days #14 tab 02/10/21 [Rx Last Taken Unknown] Allergy/AdvReac Type Severity Reaction Status Date / Time prednisone AdvReac Itching Verified 02/10/21 17:42 Social History Smoking Status: Current some day smoker tobacco type: cigarettes ROS ROS ED ROS Narrative Cough. Review of Systems ROS Unobtainable: Denies due to encephalopathy Constitutional Constitutional ED: Denies chills or fever(s) Eyes Eyes: Denies change in vision ENT ENT ED: Reports sore throat; Denies ear pain Cardiovascular Cardiovascular: Denies chest pain Respiratory/Chest Respiratory/Chest: Reports sputum; Denies dyspnea Gastrointestinal Gastrointestinal: Denies abdominal pain, diarrhea, nausea or vomiting Genitourinary Genitourinary ED: Denies dysuria Musculoskeletal Musculoskeletal: Reports back pain and neck pain; Denies myalgias Integumentary Denies rash Neurologic Neurologic: Denies headache(s) Psychiatric Psychiatric: Denies depression Endocrine Endocrinology: Denies polyuria Hematologic/Lymphatic Hematologic/Lymphatic: Denies easy bruising Allergic/Immunologic Allergic/Immunologic ED: Denies urticaria EXAM Physical Exam Narrative Exam Narrative: Well-appearing older male. Vital signs stable afebrile. Pulse ox 99% on room air no signs hypoxia. Exam unremarkable. Dry cough. Lungs are clear. Heart regular rhythm. Abdomen soft nontender. Moving all 4 extremities. Equal symmetrical 5/5 medical assistant float strength. Dorsi plantar flexion intact. Back is mild paracervical lower cervical upper thoracic tenderness. There is no redness or warmth. No signs of trauma. Both upper and lower extremities have normal motor strength and sensation. Const Vital Signs: 02/10/21 17:42 Temperature 96.9 F L Temperature Source Temporal Pulse Rate 60 Respiratory Rate 18 Blood Pressure 163/98 H Blood Pressure Mean 119 Pulse Ox 99 MDM MDM MDM Narrative Medical decision making narrative: Older male appears to have neck pain and upper extremity symptoms. He has a normal exam to motor and sensation. With his respiratory symptoms I checked a Covid test and a chest x-ray both of which were unremarkable. The chest x-ray was primarily chronic changes when compared to prior. Repeat exam patient is doing well. He has been referred to a [facility] specialist at [facility] according to his they have not made the appointment as of yet. Without seeing his prior MRI results I suspect he has degenerative disc disease in his cervical spine. He will be written for [facility] for pain. Given 1 here in the emergency department. Lab Data Attestation: I reviewed the patient's lab results. Lab results narrative: Covid test negative. Chest x-ray chronic changes. Radiography Diagnostic Testing: Radiology Impression Chest X-Ray 02/10/21 18:30 IMPRESSION: Increased interstitial markings may represent edema and/or infection. Electronically Signed: Real Pantoja MD at 19:12 EDT Tel , Service support , Chest x-ray 2 views AP lateral read by myself shows increased interstitial markings which are seen on prior films I suspect this is chronic changes. Discharge Plan Triage Chief Complaint: Back ED Provider: Vijay Alberto Dx/Rx/DC Orders Clinical Impression: Back pain, Neck pain, Viral URI Instructions: ED Neck Pain, ED URI, Viral, No Abx (Adult) Prescriptions: New hydrocodone-acetaminophen 5-325 mg tablet 1 tab PO Q4H PRN (Reason: pain) 5 Days Qty: 14 RF: 0 No Action amitriptyline 10 MG tablet 25 mg PO QHS RF: 0 lisinopril 5 MG tablet 10 mg PO DAILY RF: 0 Lovastatin [Mevacor] 40 MG tablet 40 mg PO QHS RF: 0 Stool Softener 50 MG capsule 50 mg PO DAILY RF: 0 levothyroxine 150 MCG tablet 150 mcg PO DAILY RF: 0 naproxen 500 MG tablet 500 mg PO BID PRN Qty: 20 RF: 0 apixaban 5 MG tablet 5 mg PO DAILY RF: 0 gabapentin 300 MG capsule 300 mg PO QHS RF: 0 hydrocodone-acetaminophen [hydrocodone-acetaminophen] 1 TABLET tablet 1 tab PO Q4H PRN PRN (Reason: Pain) 2 Days Qty: 10 RF: 0 Primary Care Provider: Levon Corral Referrals: Levon Corral MD [Primary Care Provider] - Activity Restrictions/Additional Instructions: Call and follow-up make an appointment with the [facility] spine surgeon as soon as possible. [place] for pain. Do not drive or drink alcohol while using the [place]. Plenty of fluids and fiber to prevent constipation. Disposition Disposition: Home, Self Care
[2021-02-10] MEDS: HYDROcodone Bitartrate/Apap 5/325 Tablet PO (20:23)
== END 2021-02-10 20:27 | disposition home or self-care (01) ==
PROVIDERS: Emergency Provider Emergency Medicine; PCP Internal Medicine
DX: R20.0 Anesthesia of skin (principal); M54.9 Dorsalgia, unspecified; M54.2 Cervicalgia; J06.9 Acute upper respiratory infection, unspecified; F17.210 Nicotine dependence, cigarettes, uncomplicated; I10 Essential (primary) hypertension; E03.9 Hypothyroidism, unspecified; Z79.01 Long term (current) use of anticoagulants; Z79.52 Long term (current) use of systemic steroids
CPT/HCPCS: 71046; 87426; 99283

== ENCOUNTER → 2021-03-17 12:42 | Outpatient (CLI) | payer MEDICARE, MEDICAID, SELFPAY ==
--- NOTE | 2021-03-17 12:45 | CT_ITS ---
STUDY: LOW DOSE CT LUNG CANCER SCREENING REASON FOR EXAM: Male, 60 years old. [id number] RADIATION DOSAGE (If Supplied By Facility): CTDIvol = ( 4.02 ) mGy, DLP = ( 145.97 ) mGycm TECHNIQUE: No contrast was administered. Low dose technique was utilized (average mAS-38 and kVp 120). 1.25 mm axial source images with a slice interval of 1.25-mm were reconstructed in lung windows. 2.5 mm axial source images with a slice interval of 2.5-mm were reconstructed in lung windows. 5.0 mm axial source images with a slice interval of 5.0-mm were reconstructed in soft tissue windows. Nodule measured using lung windows on PACS and/or independent workstation with automated measurement of minimum and maximum diameter. Nodule measurement reported as average diameter rounded to the nearest whole number. Growth is defined as an increase ins size of greater than 1.5 mm. COMPARISON: None. FINDINGS: There is underlying emphysema and hyperinflation with bullous formation in both lungs worse in the upper lobes. A dominant bulla is seen in the right upper lobe measuring 9.8 cm x 10.8 cm. Is also evidence of a subpleural cystic changes in the upper lobes suggests a possible scarring. No evidence of endobronchial lesion No organizing infiltrate or effusion Bony structures show degenerative change Overall, little significant change since the previous study CT/Low Dose CT Lung Screening IMPRESSION: Lung-RADS category 2 - Continue annual screening with LDCT in 12 months. IMPORTANT NOTES FOR USE: ACR Lung-RADS Version 1.1 Assessment Categories Release Date: 2018 Category: Coded 0-4 bases on nodule(s) with highest degree of suspicion. Negative screen is defined as categories 1 and 2; a positive screen is defined as categories 3 and 4. Category 3 and 4A nodules that are unchanged on interval CT should be coded as category 2, and individuals returned to screening in 12 months. Category 4X: Category 3 or 4 nodules with additional imaging findings that increase the suspicion of lung cancer, such as spiculation, GGN that doubles in size in 1 year, enlarged lymph notes, etc. Category Modifiers: S (significant finding unrelated to lung cancer) Electronically Signed: Ronn Deleon MD at 13:37 EDT , Service support ,
== END ==
PROVIDERS: PCP Internal Medicine; Referring Provider Internal Medicine Pulmonary Disease; Visit Provider Internal Medicine Pulmonary Disease
DX: Z12.2 Encounter for screening for malignant neoplasm of respiratory organs (principal); Z87.891 Personal history of nicotine dependence
CPT/HCPCS: 71271

== ENCOUNTER 2021-04-30 21:11 | Emergency (ER) | payer MEDICARE, MEDICAID, SELFPAY ==
[2021-04-30 21:11] VITALS: BP 148/75; PULSE 64; RESP 18; TEMP 37.3; O2SAT 97; BMI 33.8
--- NOTE | 2021-04-30 21:49 | EKG12_ITS ---
Test Reason : SOB Blood Pressure : / mmHG Vent. Rate : 059 BPM Atrial Rate : 059 BPM P-R Int : 214 ms QRS Dur : 088 ms QT Int : 424 ms P-R-T Axes : 032 -04 069 degrees QTc Int : 419 ms Sinus bradycardia with 1st degree A-V block Otherwise normal ECG Confirmed by NIKOS MARIE, AALIYAH ([id number]), associate entertainment editor BERTO OVERTON ([id number]) on 05/02/2021 11:01:42 AM Referred By: Confirmed By:AALIYAH KNOTT MD
--- NOTE | 2021-04-30 21:52 | EX.ED.DYSGE1 ---
[facility] <Dr. Juma Stephens DO - Last Filed: 05/01/21 00:21> History of Present Illness Chief Complaint: Shortness of Breath Informant: patient Narrative Narrative: Is a 60-year-old male presenting to the emergency department with chest pain. Patient states that around noon he began to have a pain left side of his chest which she described as a pressure and every time he takes a deep breath it becomes sharp and stabbing and he also feels it in his back. He notes a history of atrial fibrillation and is on apixaban. He does not believe he is missed any doses recently. The patient notes a slight cough but he states that is normal for him as he is a smoker. No reported fevers. No vomiting or diarrhea. No recent falls or injuries. [facility] <Dr. Juma Stephens DO - Last Filed: 05/01/21 00:21> [facility] Medical History Atrial flutter Back pain Hypertension Hypothyroidism Home Medications amitriptyline 25 mg PO QHS 06/23/13 [History Last Taken 10/30/16] Lovastatin [Mevacor] 40 mg PO QHS 11/18/14 [History Last Taken 10/30/16] lisinopril 10 mg PO DAILY 11/18/14 [History Last Taken 10/31/16] Stool Softener 50 mg PO DAILY 07/10/16 [History Last Taken Unknown] levothyroxine 150 mcg PO DAILY 11/01/16 [History Last Taken Unknown] naproxen 500 mg PO BID PRN #20 tab 06/12/18 [Rx Last Taken Unknown] apixaban 5 mg PO DAILY 07/12/19 [History Last Taken Unknown] gabapentin 300 mg PO QHS 10/08/19 [History Last Taken Unknown] hydrocodone-acetaminophen 1 tab PO Q4H PRN PRN 2 Days #10 tablet 12/14/20 [Rx Last Taken Unknown] hydrocodone-acetaminophen 1 tab PO Q4H PRN 5 Days #14 tab 02/10/21 [Rx Last Taken Unknown] Allergy/AdvReac Type Severity Reaction Status Date / Time prednisone AdvReac Itching Verified 04/30/21 21:13 Social History (Updated 04/30/21 @ 21:[address] Juma Ashford, DO) Smoking Status: Current some day smoker tobacco type: cigarettes substance use type: does not use ROS <Dr. Juma Stephens DO - Last Filed: 05/01/21 00:21> ROS ED Constitutional Constitutional ED: Denies chills or weight loss Eyes Eyes: Denies change in vision or diplopia ENT ENT ED: Denies ear pain, rhinorrhea or sore throat Cardiovascular Cardiovascular: Reports chest pain; Denies orthopnea, palpitations or racing heartbeat Respiratory/Chest Respiratory/Chest: Reports dyspnea; Denies cough or orthopnea Gastrointestinal Gastrointestinal: Denies abdominal pain, diarrhea, nausea or vomiting Genitourinary Genitourinary ED: Denies dysuria, hematuria or urinary frequency Musculoskeletal Musculoskeletal: Denies arthralgias or myalgias Integumentary Denies abscess or rash Neurologic Neurologic: Denies headache(s) or weakness Psychiatric Psychiatric: Denies anxiety, depression, suicidal ideation or suicidal thoughts Endocrine Endocrinology: Denies polydipsia, polyphagia or polyuria Allergic/Immunologic Allergic/Immunologic ED: Denies mouth swelling, tongue swelling or urticaria EXAM <Dr. Juma Stephens, DO - Last Filed: 05/01/21 00:21> Physical Exam Const Vital Signs: 04/30/21 21:11 04/30/21 23:19 04/30/21 23:25 Temperature 99.2 F H Temperature Source Temporal Pulse Rate 64 51 L Respiratory Rate 18 18 Respiratory Effort Normal Blood Pressure 148/75 H 119/77 Blood Pressure Mean 99 91 Pulse Ox 97 Oxygen Delivery Method Room Air Room Air Positive well nourished, well developed and obese General Appearance ED: well developed Nutritional Appearance: obese HEENT Reports normocephalic, head/scalp atraumatic, TM's clear and moist mucous membranes Negative for trauma Tympanic Membrane ED: Yes TM's clear Eyes PERRL and EOMs intact bilaterally Neck no lymphadenopathy, supple and no JVD Chest Wall inspection of chest normal Chest Narrative: The chest is nontender. Resp normal respiratory effort and clear to auscultation bilaterally Cardio regular rate, regular rhythm and no murmurs GI normal to inspection, nondistended, normoactive bowel sounds and non-tender Palpation: soft Back/Spine no CVA tenderness and normal ROM Back/Spine Narrative: Patient does have tenderness to palpation over the rhomboid region of the left thoracic back. Extremity normal to inspection General Extremety ED: Negative for edema General Extremity: Negative for edema Neuro oriented x3 and CN's II-XII intact bilaterally Sensorium / Orientation: alert Motor Exam: strength 5/5 throughout Psych mental status grossly normal Mood & Affect: Negative for depressed or tearful Skin no rashes or lesions noted and no wounds <Dr. Mary Carias MD - Last Filed: 05/01/21 01:05> Physical Exam Const Vital Signs: 04/30/21 21:11 04/30/21 23:19 04/30/21 23:25 Temperature 99.2 F H Temperature Source Temporal Pulse Rate 64 51 L Respiratory Rate 18 18 Respiratory Effort Normal Blood Pressure 148/75 H 119/77 Blood Pressure Mean 99 91 Pulse Ox 97 Oxygen Delivery Method Room Air Room Air MDM <Dr. Juma Stephens DO - Last Filed: 05/01/21 00:21> MDM MDM Narrative Medical decision making narrative: White count 7.4 hemoglobin 14.8. BMP shows creatinine 0.89. Troponin of 13. Patient's D-dimer is 2.21. My interpretation of the chest x-ray is atelectatic changes in the base with COPD pattern. Because of the elevated D-dimer and his pleuritic-like chest pain a CTA of the chest will be obtained. Patient states he believes he has been compliant with his apixaban. However given his symptoms and elevated D-dimer and not being 100% sure I think it is important we rule this out. His repeat oral temperature is 98.3. Lab Data Attestation: I reviewed the patient's lab results. Labs: Laboratory Results - last 24 hr 04/30/21 04/30/21 04/30/21 23:10 23:10 23:10 WBC 7.4 RBC 4.75 Hgb 14.8 Hct 43.1 MCV 90.7 MCH 31.2 MCHC 34.3 RDW Std Deviation 39.9 RDW Coeff of Celeste 12.0 Plt Count 204 MPV 10.0 Immature Gran % (Auto) 0.700 Neut % (Auto) 52.7 Lymph % (Auto) 27.1 Stafford % (Auto) 12.9 H Eos % (Auto) 5.4 H Baso % (Auto) 1.2 H Absolute Neuts (auto) 3.9 Absolute Lymphs (auto) 2.00 Nucleated RBC % 0 D-Dimer Quant (PE/DVT) 2.21 H* Sodium 142 Potassium 3.9 Chloride 109 H Carbon Dioxide 27.0 Anion Gap 6 BUN 15 Creatinine 0.82 Estim Creat Clear Calc 91.52 Est GFR (MDRD) Af Amer 123 Est GFR (MDRD) Non-Af 102 BUN/Creatinine Ratio 18.4 Glucose 101 Calcium 9.3 Troponin I High Sens 13 Radiography Diagnostic Testing: Clinical Impression(s) from Imaging Studies Chest X-Ray 04/30/21 22:03 IMPRESSION: 1. Atelectasis in the lung bases. 2. Large bulla right lung apex, unchanged. Electronically Signed: William James MD at 22:34 EDT Tel , Service support , Chest CTA 05/01/21 00:12 IMPRESSION: 1. No pulmonary embolism. 2. Large bulla in the right upper lobe. Pulmonary fibrotic changes predominantly in the upper lungs. Honeycombing is noted in the upper lungs. Electronically Signed: William James MD at 0:57 EDT Tel , Service support , EKG Initial EKG: Attestation: I personally reviewed and interpreted this EKG as follows: Comments: Sinus bradycardia with a first-degree AV block with a ventricular rate of 59 bpm <Dr. Mary Carias MD - Last Filed: 05/01/21 01:05> [facility] Lab Data Labs: Laboratory Results - last 24 hr 04/30/21 04/30/21 04/30/21 23:10 23:10 23:10 WBC 7.4 RBC 4.75 Hgb 14.8 Hct 43.1 MCV 90.7 MCH 31.2 MCHC 34.3 RDW Std Deviation 39.9 RDW Coeff of Celeste 12.0 Plt Count 204 MPV 10.0 Immature Gran % (Auto) 0.700 Neut % (Auto) 52.7 Lymph % (Auto) 27.1 Stafford % (Auto) 12.9 H Eos % (Auto) 5.4 H Baso % (Auto) 1.2 H Absolute Neuts (auto) 3.9 Absolute Lymphs (auto) 2.00 Nucleated RBC % 0 D-Dimer Quant (PE/DVT) 2.21 H* Sodium 142 Potassium 3.9 Chloride 109 H Carbon Dioxide 27.0 Anion Gap 6 BUN 15 Creatinine 0.82 Estim Creat Clear Calc 91.52 Est GFR (MDRD) Af Amer 123 Est GFR (MDRD) Non-Af 102 BUN/Creatinine Ratio 18.4 Glucose 101 Calcium 9.3 Troponin I High Sens 13 Radiography Diagnostic Testing: Clinical Impression(s) from Imaging Studies Chest X-Ray 04/30/21 22:03 IMPRESSION: 1. Atelectasis in the lung bases. 2. Large bulla right lung apex, unchanged. Electronically Signed: William James MD at 22:34 EDT Tel , Service support , Chest CTA 05/01/21 00:12 IMPRESSION: 1. No pulmonary embolism. 2. Large bulla in the right upper lobe. Pulmonary fibrotic changes predominantly in the upper lungs. Honeycombing is noted in the upper lungs. Electronically Signed: William James MD at 0:57 EDT Tel , Service support , Treatment and Re-Evaluation Comments:: Patient signed out to me pending CTA of the chest. CTA returns with no evidence of PE. Large bullae are noted in the right upper lobe with some fibrotic changes also noted. On repeat evaluation patient is resting comfortably. Test results are discussed with him. He is comfortable with discharge to home and will continue supportive care. Return instructions are provided. Discharge Plan Triage Chief Complaint: Shortness of Breath ED Provider: Juma Stephens Dx/Rx/DC Orders Clinical Impression: Chest pain Instructions: ED Chest Pain, Uncertain Cause Prescriptions: No Action amitriptyline 10 MG tablet 25 mg PO QHS RF: 0 lisinopril 5 MG tablet 10 mg PO DAILY RF: 0 Lovastatin [Mevacor] 40 MG tablet 40 mg PO QHS RF: 0 Stool Softener 50 MG capsule 50 mg PO DAILY RF: 0 levothyroxine 150 MCG tablet 150 mcg PO DAILY RF: 0 naproxen 500 MG tablet 500 mg PO BID PRN Qty: 20 RF: 0 apixaban 5 MG tablet 5 mg PO DAILY RF: 0 gabapentin 300 MG capsule 300 mg PO QHS RF: 0 hydrocodone-acetaminophen [hydrocodone-acetaminophen] 1 TABLET tablet 1 tab PO Q4H PRN PRN (Reason: Pain) 2 Days Qty: 10 RF: 0 hydrocodone-acetaminophen 5-325 mg tablet 1 tab PO Q4H PRN (Reason: pain) 5 Days Qty: 14 RF: 0 Primary Care Provider: Levon Corral Referrals: Levon Corral MD [Primary Care Provider] - 3-5 Days if not improving Disposition Disposition: Home, Self Care
--- NOTE | 2021-04-30 22:03 | RAD_ITS ---
EXAM: XR Chest, 1 View CLINICAL INDICATION: 60 years old, Male; chest pain TECHNIQUE: Frontal view of the chest. This report was created using [employer] report generation technology. COMPARISON: Chest x-ray dated 02/10/2021 FINDINGS: Lungs and pleural spaces: Atelectasis in the lung bases. Large bulla right lung apex, unchanged. No pneumothorax. No effusion. Heart: Unremarkable. Cardiac silhouette not enlarged. Mediastinum: Central airways and mediastinal contour are unremarkable. Bones/joints: Hypertrophic changes thoracic spine. Soft tissues: Unremarkable. RAD/Chest 1 View (Portable) IMPRESSION: 1. Atelectasis in the lung bases. 2. Large bulla right lung apex, unchanged. Electronically Signed: William James MD at 22:34 EDT Tel , Service support ,
[2021-04-30 23:19] VITALS: BP 119/77; PULSE 51; RESP 18
[2021-04-30] MEDS: Ketorolac 30 MG/ML Syringe IV (23:24)
[2021-04-30 23:25] VITALS: O2SAT 100
[2021-04-30 23:34] LABS: Absolute Neutrophil Count 3.9 X10^3/uL (2.0-7.7); Basophil# 0.09 X10^3/uL; Basophil% 1.2 % (0-1); Eosinophils% 5.4 % (0-5); Hematocrit 43.1 % (40-54); Hemoglobin 14.8 g/dL (13.0-16.5); Lymphocyte % 27.1 % (19-41); Mean Corp Hgb Conc 34.3 g/dL (32-36); Mean Corpuscular Hgb 31.2 pg (27.0-32.0); Mean Corpuscular Volume 90.7 fL (80-94); Monocyte# 0.95 X10^3/uL; Monocyte% 12.9 % (0-10); NRBC Flagged by Analyzer 0 % (0-5); Neutrophil # 3.88 X10^3/uL (2.7-7.7); Neutrophil % 52.7 % (47-70); Platelet Count 204 K/mm3 (150-450); RBC Distribution Width SD 39.9 fl (35.1-43.9); Red Blood Count 4.75 M/mm3 (4.6-6.2); White Blood Count 7.4 K/mm3 (4.4-11.0)
[2021-04-30 23:40] LABS: Anion Gap 6 (5-15); BUN 15 mg/dL (7-18); BUN/Creat Ratio 18.4 RATIO (10-20); Calcium,Total 9.3 mg/dL (8.5-10.1); Chloride 109 mmol/L (98-107); Creatinine, Serum 0.82 mg/dL (0.70-1.30); EST Glomerular Filtration Rate 102 mL/min (>60); Est Glom Filt Rate - Afr Amer 123 mL/min (>60); Estimated Creatinine Clearance 91.52 ml/min; Glucose 101 mg/dL (74-106); Potassium 3.9 mmol/L (3.5-5.1); Sodium Level 142 mmol/L (136-145); Troponin-I HS 13 pg/mL (3.0-78.0)
[2021-04-30 23:54] LABS: D-Dimer Quantitative (DVT/PE) 2.21 FEU/ug/m (0.27-0.49)
--- NOTE | 2021-05-01 00:12 | CT_ITS ---
EXAM: CT Angiography Chest Without and With Intravenous Contrast CLINICAL INDICATION: 60 years old, Male; pulmonary embolism TECHNIQUE: Helically acquired angiography images were obtained of the chest without and with intravenous contrast. This CT exam was performed using one or more of the following dose reduction techniques: automated exposure control, adjustment of the mA and/or kV according to patient size, and/or use of iterative reconstruction technique. This report was created using [employer] report generation technology. MIP reconstructed images were created and reviewed. CONTRAST: IV 100mL Isovue-300 COMPARISON: None. FINDINGS: Pulmonary arteries: Unremarkable. Normal in caliber. No pulmonary embolism. Aorta: Atherosclerotic disease. Abdominal aortic graft is partially imaged. Normal in caliber. No evidence of dissection. Great vessels of aortic arch: Unremarkable. Normal in caliber. No evidence of dissection. Lungs and pleural spaces: Large bulla in the right upper lobe. Pulmonary fibrotic changes predominantly in the upper lungs. Honeycombing is noted in the upper lungs. No mass. No pleural effusion or thickening. No pneumothorax. Heart: Unremarkable. Heart size is normal. No pericardial effusion. No signs of right heart strain, ratio of right ventricle to left ventricle measures less than 1. Mediastinum: Unremarkable. No mediastinal or hilar adenopathy. Esophagus is unremarkable. No hiatal hernia. Thyroid: Unremarkable. No thyroid lesions. Bones/joints: Unremarkable. No suspicious lytic or blastic abnormality. CT/CTA Chest W/WO Contrast IMPRESSION: 1. No pulmonary embolism. 2. Large bulla in the right upper lobe. Pulmonary fibrotic changes predominantly in the upper lungs. Honeycombing is noted in the upper lungs. Electronically Signed: William James MD at 0:57 EDT Tel , Service support ,
[2021-05-01 01:12] VITALS: BP 123/86; PULSE 46; RESP 16; O2SAT 98
== END 2021-05-01 01:16 | disposition home or self-care (01) ==
PROVIDERS: Emergency Provider Emergency Medicine; PCP Internal Medicine
DX: R07.9 Chest pain, unspecified (principal); F17.210 Nicotine dependence, cigarettes, uncomplicated; E66.9 Obesity, unspecified
CPT/HCPCS: 71045; 71275; 80048; 84484; 85025; 85379; 93005; 96374; 99284; Q9967; A4216

== ENCOUNTER 2021-08-29 19:17 | Emergency (ER) | payer MEDICARE, MEDICAID, SELFPAY ==
[2021-08-29 19:17] VITALS: BP 141/74; PULSE 56; RESP 18; TEMP 36.4; O2SAT 96; BMI 36.5
--- NOTE | 2021-08-29 19:21 | EKG12_ITS ---
Test Reason : CP Blood Pressure : / mmHG Vent. Rate : 056 BPM Atrial Rate : 056 BPM P-R Int : 214 ms QRS Dur : 090 ms QT Int : 446 ms P-R-T Axes : 033 008 067 degrees QTc Int : 430 ms Sinus bradycardia with 1st degree A-V block Low voltage QRS (Limb Leads) Confirmed by JAVI MARIE, NASIM ([id number]), film editor BERTO OVERTON ([id number]) on 08/31/2021 8:21:39 AM Referred By: Confirmed By:NASIM CALDWELL MD
--- NOTE | 2021-08-29 19:21 | RAD_ITS ---
STUDY: X-RAY CHEST REASON FOR EXAM: Male, 60 years old. PAIN -- , BACK PAIN. SHARP CHEST PAIN. BACK HURTS ON EXHALE TECHNIQUE: XR Chest 2 Views COMPARISON: 04/30/2021 FINDINGS: There is no demonstrated pleural abnormality. Large bulla in the right upper lobe. Normal size heart. Normal mediastinum and drea. Normal visualized pulmonary arteries. There is atherosclerotic calcification of the aortic arch with tortuosity. There are diffuse degenerative changes of the visualized thoracic spine. There is degenerative osteoarthritis of the bilateral shoulders. There is no demonstrated abnormality of the visualized soft tissue structures of the upper abdomen. RAD/Chest PA and Lateral IMPRESSION: There are no acute findings. Electronically Signed: Erick Lovett MD at 19:46 EST ,
[2021-08-29 19:39] LABS: Absolute Lymphocyte Count 2.42 X10^3/uL (0.83-4.51); Basophil# 0.07 X10^3/uL; Basophil% 0.9 % (0-1); Eosinophil# 0.29 X10^3/uL; Eosinophils% 3.8 % (0-5); Hematocrit 44.1 % (40-54); Hemoglobin 15.5 g/dL (13.0-16.5); Lymphocyte # 2.42 X10^3/ul (0.83-4.51); Lymphocyte % 31.7 % (19-41); Mean Corp Hgb Conc 35.1 g/dL (32-36); Mean Corpuscular Hgb 31.8 pg (27.0-32.0); Mean Corpuscular Volume 90.6 fL (80-94); Monocyte# 0.83 X10^3/uL; Monocyte% 10.9 % (0-10); NRBC Flagged by Analyzer 0 % (0-5); Neutrophil % 52.4 % (47-70); Platelet Count 187 K/mm3 (150-450); RBC Distribution Width CV 12.9 % (11.6-14.6); RBC Distribution Width SD 42.6 fl (35.1-43.9); Red Blood Count 4.87 M/mm3 (4.6-6.2); White Blood Count 7.6 K/mm3 (4.4-11.0)
[2021-08-29 20:03] LABS: Anion Gap 3 (5-15); BUN 12 mg/dL (7-18); BUN/Creat Ratio 14.4 RATIO (10-20); Calcium,Total 9.2 mg/dL (8.5-10.1); Chloride 107 mmol/L (98-107); Creatinine, Serum 0.83 mg/dL (0.70-1.30); EST Glomerular Filtration Rate 100 mL/min (>60); Est Glom Filt Rate - Afr Amer 121 mL/min (>60); Estimated Creatinine Clearance 90.42 ml/min; Glucose 95 mg/dL (74-106); Potassium 3.6 mmol/L (3.5-5.1); Sodium Level 139 mmol/L (136-145); Troponin-I HS 10 pg/mL (3.0-78.0)
--- NOTE | 2021-08-29 20:46 | ED.VIS.CHEST ---
HPI History of Present Illness Chief Complaint: Chest Pain Detail of Chief Complaint: 5 episodes over the last 5 hours at rest Informant: patient Onset/Context/Timing Onset: Today Activity at onset: sudden Timing: Intermittent and Lasts (1 to 3 minutes) Quality: Positive for Sharp Location: Substernal Current Severity: Gone Maximum Severity: 5/10 Worsened By: Nothing Relieved By: Nothing Associated Symptoms: Negative for Nausea, Vomiting, Diaphoresis, Dyspnea, Cough, Fever, Lightheadedness and Acid Reflux Narrative Narrative: Patient is an elderly male with history of GERD, hypercholesterolemia, COPD, hypertension who presents with intermittent central chest pain lasting 1 to 3 minutes over the past 5 hours. Set 5 episodes. He denied any associated symptoms or radiation. He denies history of coronary disease. He denies history of PE or DVT. He denies leg pain, swelling discoloration. He states he had one episode of lightheadedness. He denies black or maroon-colored stool. He denies fever, chills night sweats. He denies upper respiratory symptoms. He denies history of trauma. He has no other complaint. Prior Similar Symptoms: Yes (Unknown cause) Recent Illness/Hospitalization: No CVD Risk Factors: Positive for Hypertension, Hypercholesterolemia and Smoking; Negative for Diabetes and Family History 1' </=55 PE Risk Factors: Negative for Recent Travel/Surgery, Recent Immobilization, Prior DVT or PE and OCP + Smoking + >/=35 TAD Risk Factors: Positive for Hypertension; Negative for Marfan's Syndrome and Family History [facility] Medical History Atrial flutter Back pain Hypertension Hypothyroidism Home Medications amitriptyline 25 mg PO QHS 06/23/13 [History Last Taken 10/30/16] Lovastatin [Mevacor] 40 mg PO QHS 11/18/14 [History Last Taken 10/30/16] lisinopril 10 mg PO DAILY 11/18/14 [History Last Taken 10/31/16] Stool Softener 50 mg PO DAILY 07/10/16 [History Last Taken Unknown] levothyroxine 150 mcg PO DAILY 11/01/16 [History Last Taken Unknown] naproxen 500 mg PO BID PRN #20 tab 06/12/18 [Rx Last Taken Unknown] apixaban 5 mg PO DAILY 07/12/19 [History Last Taken Unknown] gabapentin 300 mg PO QHS 10/08/19 [History Last Taken Unknown] hydrocodone-acetaminophen 1 tab PO Q4H PRN PRN 2 Days #10 tablet 12/14/20 [Rx Last Taken Unknown] hydrocodone-acetaminophen 1 tab PO Q4H PRN 5 Days #14 tab 02/10/21 [Rx Last Taken Unknown] Allergy/AdvReac Type Severity Reaction Status Date / Time prednisone AdvReac Itching Verified 04/30/21 21:13 Social History (Updated 08/29/21 @ 20:[address] Ayush Cope MD) household members: spouse Smoking Status: Current some day smoker tobacco type: cigarettes substance use type: does not use ROS ROS ED Constitutional Constitutional ED: Denies chills, fever(s), subjective, sweats or weight loss Eyes Eyes: Reports none ENT ENT ED: Denies ear pain, rhinorrhea or sore throat Cardiovascular Cardiovascular: Reports as per HPI; Denies orthopnea or paroxysmal nocturnal dyspnea Respiratory/Chest Respiratory/Chest: Denies cough, dyspnea, dyspnea on exertion, orthopnea, paroxysmal nocturnal dyspnea or sputum Gastrointestinal Gastrointestinal: Denies abdominal pain, diarrhea, nausea or vomiting Genitourinary Genitourinary ED: Denies dysuria, hematuria or urinary frequency Musculoskeletal Musculoskeletal: Denies arthralgias, back pain, myalgias or neck pain Integumentary Denies abscess, Abrasions or rash Neurologic Neurologic: Denies headache(s), paresthesias or weakness Endocrine Endocrinology: Denies polyuria Hematologic/Lymphatic Hematologic/Lymphatic: Denies easy bleeding, easy bruising or lymphadenopathy EXAM Physical Exam Const Vital Signs: 08/29/21 19:17 08/29/21 21:54 08/29/21 22:56 Temperature 97.6 F L Temperature Source Temporal Pulse Rate 56 L 52 L Respiratory Rate 18 18 Respiratory Effort Normal Respiratory Pattern Normal Blood Pressure 141/74 H 140/79 H Blood Pressure Mean 96 99 Pulse Ox 96 93 Oxygen Delivery Method Room Air Room Air Positive well nourished, well developed and obese General Appearance ED: well developed and NAD; Negative for pallor Nutritional Appearance: obese HEENT Reports TM's clear and moist mucous membranes HEENT Narrative: Patient has slight erythema the posterior pharynx with small lesions noted anterior tonsillar pillar. Uvula is midline. Trachea is midline. There is no inspiratory expiratory stridor. normocephalic and atraumatic Tympanic Membrane ED: Yes TM's clear Eyes PERRL and EOMs intact bilaterally General Eye ED: Negative for pale conjunctiva or scleral icterus Neck no lymphadenopathy, supple and no JVD Chest Wall inspection of chest normal and palpation of chest normal Resp normal respiratory effort and clear to auscultation bilaterally Effort and Inspection: respiratory distress Cardio regular rate, regular rhythm, S1 normal heart sound, S2 normal heart sound and no murmurs GI normal to inspection, nondistended, normoactive bowel sounds, soft to palpation, non-tender and non-distended GI Narrative: Question of a palpable/pulsatile mass. This does not use his pain. Back/Spine no CVA tenderness and no thoracic nor lumbar tenderness Cervical Spine: Negative for cervical spine tenderness Extremity normal to inspection Extremity Narrative: There is no asymmetry, swelling, discoloration, leg vein distention, palpable cords or tenderness along the distribution of the deep venous system. General Extremety ED: Negative for edema, pulses abnormal or tenderness General Extremity: Negative for edema or pulses abnormal Neuro oriented x3, CN's II-XII intact bilaterally and no sensory deficits noted Sensorium / Orientation: awake and alert Motor Exam: strength 5/5 throughout Psych mental status grossly normal Skin no rashes or lesions noted and no wounds General Skin Exam: Negative for jaundice or pallor Heart Score History: Slightly/Non-Suspicious ECG: Normal Age: >45 - <65 years Risk Factors: >/= 3 Risk Factors or History of CAD Troponin: </= Normal Limit Score: 3 MDM MDM MDM Narrative Medical decision making narrative: Patient presents with atypical chest pain. Work-up was undertaken to rule out cardiac versus noncardiac etiology. Lab Data Attestation: I reviewed the patient's lab results. Lab results narrative: First and second troponin were normal. Delta is -1. Patient be discharged to home. Labs: Laboratory Results - last 24 hr 08/29/21 08/29/21 08/29/21 19:30 19:30 21:32 WBC 7.6 RBC 4.87 Hgb 15.5 Hct 44.1 MCV 90.6 MCH 31.8 MCHC 35.1 RDW Std Deviation 42.6 RDW Coeff of Celeste 12.9 Plt Count 187 MPV 10.0 Immature Gran % (Auto) 0.300 Neut % (Auto) 52.4 Lymph % (Auto) 31.7 [place] % (Auto) 10.9 H Eos % (Auto) 3.8 Baso % (Auto) 0.9 Absolute Neuts (auto) 4.0 Absolute Lymphs (auto) 2.42 Nucleated RBC % 0 Sodium 139 Potassium 3.6 Chloride 107 Carbon Dioxide 29.0 Anion Gap 3 L BUN 12 Creatinine 0.83 Estim Creat Clear Calc 90.42 Est GFR (MDRD) Af Amer 121 Est GFR (MDRD) Non-Af 100 BUN/Creatinine Ratio 14.4 Glucose 95 Calcium 9.2 Troponin I High Sens 10 9 Radiography Chest X-Ray - ED: 1 View (Single view chest x-ray was chronic changes. Cardiac silhouette size normal. Osseous structures unremarkable. Hilar region is unremarkable. There is no acute findings.) Diagnostic Testing: Clinical Impression(s) from Imaging Studies Chest X-Ray 08/29/21 19:21 IMPRESSION: There are no acute findings. Electronically Signed: Erick Lovett MD at 19:46 EST Reading Location ID and State: [facility] / [place] , Service support , Discharge Plan Triage Chief Complaint: Chest Pain ED Provider: Ayush Cope Dx/Rx/DC Orders Clinical Impression: Chest pain Instructions: ED Chest Pain, Noncardiac Prescriptions: No Action amitriptyline 10 MG tablet 25 mg PO QHS RF: 0 lisinopril 5 MG tablet 10 mg PO DAILY RF: 0 Lovastatin [Mevacor] 40 MG tablet 40 mg PO QHS RF: 0 Stool Softener 50 MG capsule 50 mg PO DAILY RF: 0 levothyroxine 150 MCG tablet 150 mcg PO DAILY RF: 0 naproxen 500 MG tablet 500 mg PO BID PRN Qty: 20 RF: 0 apixaban 5 MG tablet 5 mg PO DAILY RF: 0 gabapentin 300 MG capsule 300 mg PO QHS RF: 0 hydrocodone-acetaminophen [hydrocodone-acetaminophen] 1 TABLET tablet 1 tab PO Q4H PRN PRN (Reason: Pain) 2 Days Qty: 10 RF: 0 hydrocodone-acetaminophen 5-325 mg tablet 1 tab PO Q4H PRN (Reason: pain) 5 Days Qty: 14 RF: 0 Primary Care Provider: Levon Corral Referrals: Levon Corral MD [Primary Care Provider] - 3-5 Days Disposition Disposition: Home, Self Care
[2021-08-29 21:54] VITALS: BP 140/79; PULSE 52; RESP 18; O2SAT 93
[2021-08-29 22:22] LABS: Troponin-I HS 9 pg/mL (3.0-78.0)
[2021-08-29 23:26] VITALS: BP 154/78; PULSE 52; RESP 13; O2SAT 98
[2021-08-29] MEDS: HYDROcodone Bitartrate/Apap 5/325 Tablet PO (23:33)
== END 2021-08-29 23:34 | disposition home or self-care (01) ==
PROVIDERS: Emergency Provider Emergency Medicine; PCP Internal Medicine; Visit Provider Emergency Medicine
DX: R07.9 Chest pain, unspecified (principal); J44.9 Chronic obstructive pulmonary disease, unspecified; F17.210 Nicotine dependence, cigarettes, uncomplicated; E78.00 Pure hypercholesterolemia, unspecified; I10 Essential (primary) hypertension; K21.9 Gastro-esophageal reflux disease without esophagitis; E03.9 Hypothyroidism, unspecified
CPT/HCPCS: 71046; 80048; 84484; 85025; 93005; 99285; A4216

== ENCOUNTER 2021-10-21 17:16 | Emergency (ER) | payer MEDICARE, MEDICAID, SELFPAY ==
[2021-10-21 17:18] VITALS: BP 135/79; PULSE 71; RESP 18; TEMP 36.7; O2SAT 95; BMI 33.5
--- NOTE | 2021-10-21 18:09 | CT_ITS ---
STUDY: CT PELVIS WITH CONTRAST ENHANCEMENT 1856 HOURS ON 10/21/2021 REASON FOR EXAM: 61-year-old male with gluteal pain. RADIATION DOSAGE (If Supplied By Facility): CTDIvol = ( 28.20 ) mGy, DLP = ( 1293.84 ) mGycm TECHNIQUE: Transaxial imaging of the pelvis was performed without oral contrast. IV 100mL Isovue-300 was administered intravenously. Individualized dose optimization techniques were used for this CT. COMPARISON: None. FINDINGS: There are findings of a distal aortic and bi-iliac graft. These vessels are intact. The kidneys are perfused. The intestinal gas pattern is unremarkable. The bladder has a normal appearance. The anus measures 2.8 cm x 4.2 cm and has some mild surrounding edema, especially in adjacent right gluteal fold. This appears to be a swollen and inflamed anus--with inflammatory changes extending into the adjacent right gluteal subcutaneous tissues. There are no findings of a perianal abscess at this time. There is no evidence of other gluteal hematoma or neoplastic changes, no evidence of a distinct gluteal abscess. The pelvic bones and hips have a normal appearance. There is no evidence of pelvic bone or hip fractures. There is no evidence of hip dislocations. CT/Pelvis WITH IV Contrast IMPRESSION: 1. Findings of a swollen and inflamed anus with inflammatory changes extending into the adjacent right gluteal subcutaneous tissues. There are no findings of a perianal or gluteal abscess at this time. 2. No evidence of other the gluteal abscesses, hematomas or neoplastic changes. 3. Normal pelvic bones and hips without fractures or dislocations. 4. 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 5. Normal-appearing bladder. 6. Unremarkable visualized portions of the intestine. Electronically Signed: Travon Evans MD at 19:27 EDT ,
[2021-10-21 18:39] LABS: Anion Gap 4 (5-15); BUN 16 mg/dL (7-18); BUN/Creat Ratio 19.6 RATIO (10-20); Calcium,Total 8.7 mg/dL (8.5-10.1); Chloride 109 mmol/L (98-107); Creatinine, Serum 0.82 mg/dL (0.70-1.30); EST Glomerular Filtration Rate 101 mL/min (>60); Est Glom Filt Rate - Afr Amer 123 mL/min (>60); Glucose 104 mg/dL (74-106); Potassium 3.6 mmol/L (3.5-5.1); Sodium Level 139 mmol/L (136-145)
[2021-10-21 18:45] LABS: Absolute Lymphocyte Count 2.08 X10^3/uL (0.83-4.51); Basophil# 0.07 X10^3/uL; Basophil% 0.6 % (0-1); Eosinophil# 0.25 X10^3/uL; Hematocrit 41.4 % (40-54); Hemoglobin 14.2 g/dL (13.0-16.5); Lymphocyte # 2.08 X10^3/ul (0.83-4.51); Lymphocyte % 16.4 % (19-41); Mean Corp Hgb Conc 34.3 g/dL (32-36); Mean Corpuscular Hgb 31.2 pg (27.0-32.0); Monocyte# 1.23 X10^3/uL; Monocyte% 9.7 % (0-10); NRBC Flagged by Analyzer 0 % (0-5); Neutrophil # 8.98 X10^3/uL (2.7-7.7); Platelet Count 199 K/mm3 (150-450); RBC Distribution Width CV 12.7 % (11.6-14.6); Red Blood Count 4.55 M/mm3 (4.6-6.2); White Blood Count 12.7 K/mm3 (4.4-11.0)
--- NOTE | 2021-10-21 18:59 | EX.ED.DYSGE1 ---
HPI History of Present Illness Chief Complaint: Other, Pain/Inj Narrative Narrative: 61-year-old male with chief complaint of rectal irritation. He states he has had this for a few weeks. He states it is getting worse. He was initially put on a topical cream which did not help. He states this was some sort of steroid cream. He does have pain around the rectum. He is not having diarrhea or constipation. No black or bloody stools. No fever or chills. He is concerned he might have an infection. [facility] Medical History Atrial flutter Back pain Hypertension Hypothyroidism Home Medications amitriptyline 25 mg PO QHS 06/23/13 [History Last Taken 10/30/16] Lovastatin [Mevacor] 40 mg PO QHS 11/18/14 [History Last Taken 10/30/16] lisinopril 10 mg PO DAILY 11/18/14 [History Last Taken 10/31/16] Stool Softener 50 mg PO DAILY 07/10/16 [History Last Taken Unknown] levothyroxine 150 mcg PO DAILY 11/01/16 [History Last Taken Unknown] apixaban 5 mg PO DAILY 07/12/19 [History Last Taken Unknown] gabapentin 300 mg PO Q6H 10/08/19 [History Last Taken Unknown] amoxicillin-pot clavulanate 1 tab PO BID #20 tab 10/21/21 [Rx Last Taken Unknown] pramoxine [Proctofoam] 1 applic MT TID PRN #15 g 10/21/21 [Rx Last Taken Unknown] Allergy/AdvReac Type Severity Reaction Status Date / Time prednisone AdvReac Itching Verified 10/21/21 17:21 Social History household members: spouse Smoking Status: Current some day smoker tobacco type: cigarettes substance use type: does not use ROS ROS ED Constitutional Constitutional ED: Denies chills or fever(s) Eyes Eyes: Denies blurry vision ENT ENT ED: Denies rhinorrhea or sore throat Cardiovascular Cardiovascular: Denies chest pain or palpitations Respiratory/Chest Respiratory/Chest: Denies cough or dyspnea Gastrointestinal Gastrointestinal: Denies abdominal pain, nausea or vomiting Genitourinary Genitourinary ED: Denies dysuria or hematuria Musculoskeletal Musculoskeletal: Denies arthralgias, back pain, myalgias or neck pain Integumentary Reports other Details: Perirectal rash Neurologic Neurologic: Denies headache(s) or weakness EXAM Physical Exam Const Vital Signs: 10/21/21 17:18 10/21/21 18:00 10/21/21 19:27 Temperature 98.1 F Temperature Source Temporal Pulse Rate 71 Respiratory Rate 18 Respiratory Effort Normal Respiratory Pattern Normal Blood Pressure 135/79 H 139/78 H Blood Pressure Mean 97 98 Pulse Ox 95 Oxygen Delivery Method Room Air Positive well nourished General Appearance ED: NAD; Negative for pallor HEENT Reports moist mucous membranes Negative for trauma Eyes PERRL and EOMs intact bilaterally Cardio regular rate GI normal to inspection, nondistended, normoactive bowel sounds GI Narrative: Mild erythema perirectally. No vega abscess is noted. Mildly tender to palpation. Back/Spine Lumbar Spine / Lower Back: Negative for lumbar spinal tenderness Neuro oriented x3 and CN's II-XII intact bilaterally Sensorium / Orientation: alert Psych mental status grossly normal Skin General Skin Exam: Negative for jaundice or pallor MDM MDM MDM Narrative Medical decision making narrative: Patient given morphine and Zofran. I obtained blood work which shows he has a slight white blood cell count 12.7. Hemoglobin adequate stable. Renal function electrolytes normal. Obtained a CT of the pelvis which does show inflammation in this area without vega abscess. I will start him on Augmentin and give him Proctofoam. Patient given return precautions. He will be given referral to GI. Impression: 1. Perianal cellulitis Lab Data Attestation: I reviewed the patient's lab results. Labs: Laboratory Results - last 24 hr 10/21/21 10/21/21 18:20 18:20 WBC 12.7 H RBC 4.55 L Hgb 14.2 Hct 41.4 MCV 91.0 MCH 31.2 MCHC 34.3 RDW Std Deviation 42.0 RDW Coeff of Celeste 12.7 Plt Count 199 MPV 10.0 Immature Gran % (Auto) 0.300 Neut % (Auto) 71.0 H Lymph % (Auto) 16.4 L [place] % (Auto) 9.7 Eos % (Auto) 2.0 Baso % (Auto) 0.6 Absolute Neuts (auto) 9.0 H Absolute Lymphs (auto) 2.08 Nucleated RBC % 0 Sodium 139 Potassium 3.6 Chloride 109 H Carbon Dioxide 26.0 Anion Gap 4 L BUN 16 Creatinine 0.82 Estim Creat Clear Calc 93.40 Est GFR (MDRD) Af Amer 123 Est GFR (MDRD) Non-Af 101 BUN/Creatinine Ratio 19.6 Glucose 104 Calcium 8.7 Radiography Diagnostic Testing: Clinical Impression(s) from Imaging Studies Pelvis CT 10/21/21 18:09 IMPRESSION: 1. Findings of a swollen and inflamed anus with inflammatory changes extending into the adjacent right gluteal subcutaneous tissues. There are no findings of a perianal or gluteal abscess at this time. 2. No evidence of other the gluteal abscesses, hematomas or neoplastic changes. 3. Normal pelvic bones and hips without fractures or dislocations. 4. 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 5. Normal-appearing bladder. 6. Unremarkable visualized portions of the intestine. Electronically Signed: Travon Evans MD at 19:27 EDT Reading Location ID and State: [facility] / [place] Tel , Service support , Discharge Plan Triage Chief Complaint: Other, Pain/Inj ED Provider: Bebeto Morales Dx/Rx/DC Orders Instructions: ED Cellulitis Prescriptions: New pramoxine [Proctofoam] 1 % foam 1 applic MT TID PRN (Reason: rectal discomfort) Qty: 15 RF: 0 amoxicillin-pot clavulanate 875-125 mg tablet 1 tab PO BID Qty: 20 RF: 0 No Action amitriptyline 10 MG tablet 25 mg PO QHS RF: 0 lisinopril 5 MG tablet 10 mg PO DAILY RF: 0 Lovastatin [Mevacor] 40 MG tablet 40 mg PO QHS RF: 0 Stool Softener 50 MG capsule 50 mg PO DAILY RF: 0 levothyroxine 150 MCG tablet 150 mcg PO DAILY RF: 0 apixaban 5 MG tablet 5 mg PO DAILY RF: 0 gabapentin 300 MG capsule 300 mg PO Q6H RF: 0 Primary Care Provider: Levon Corral Referrals: Vic Hampton DO [STAFF PHYSICIAN] - As soon as possible Levon Corral MD [Primary Care Provider] - Disposition Disposition: Home, Self Care
[2021-10-21] MEDS: Ondansetron 4 MG/2 ML Vial IV (19:22)
[2021-10-21] MEDS: Morphine 4 MG/ML Syringe IV (19:22)
[2021-10-21 19:27] VITALS: BP 139/78
[2021-10-21] MEDS: Amox/Clavulanate 875 MG Tablet PO (22:07)
[2021-10-21 22:27] VITALS: BP 138/76; PULSE 88
== END 2021-10-21 22:28 | disposition home or self-care (01) ==
PROVIDERS: Emergency Provider Student in an Organized Health Care Education/Training Program; PCP Internal Medicine; Visit Provider Student in an Organized Health Care Education/Training Program
DX: K61.0 Anal abscess (principal); F17.210 Nicotine dependence, cigarettes, uncomplicated; I10 Essential (primary) hypertension; E03.9 Hypothyroidism, unspecified
CPT/HCPCS: 72193; 80048; 85025; 99283; Q9967; A4216; J2405

== ENCOUNTER 2021-12-03 18:26 | Emergency (ER) | payer MEDICARE, MEDICAID, SELFPAY ==
[2021-12-03 18:27] VITALS: BP 166/10; PULSE 60; RESP 16; TEMP 36.8; O2SAT 93; BMI 33.5
--- NOTE | 2021-12-03 18:40 | ED.VIS.LOWEX ---
HPI History of Present Illness Chief Complaint: Lower Extremity Injury Narrative Narrative: 61-year-old male presenting with right knee pain. He states been going on for about 2 months. He states he was seen at an urgent care for this and had an x-ray done which was negative. He states it continues to ache. Is worse when he wakes up in the morning. It gets better throughout the day. He states it clicks when he walks sometimes. Denies any significant swelling. No new trauma. He has tried Tylenol, ice, icy hot. He followed up with his PCP who he reports did not give any input on the knee. He is not been in physical therapy. He does not have an orthopedist. [facility] Medical History Atrial flutter Back pain Hypertension Hypothyroidism Home Medications amitriptyline 25 mg PO QHS 06/23/13 [History Last Taken 10/30/16] Lovastatin [Mevacor] 40 mg PO QHS 11/18/14 [History Last Taken 10/30/16] lisinopril 10 mg PO DAILY 11/18/14 [History Last Taken 10/31/16] Stool Softener 50 mg PO DAILY 07/10/16 [History Last Taken Unknown] levothyroxine 150 mcg PO DAILY 11/01/16 [History Last Taken Unknown] apixaban 5 mg PO DAILY 07/12/19 [History Last Taken Unknown] gabapentin 300 mg PO Q6H 10/08/19 [History Last Taken Unknown] amoxicillin-pot clavulanate 1 tab PO BID #20 tab 10/21/21 [Rx Last Taken Unknown] pramoxine [Proctofoam] 1 applic NM TID PRN #15 g 10/21/21 [Rx Last Taken Unknown] Allergy/AdvReac Type Severity Reaction Status Date / Time prednisone AdvReac Itching Verified 12/03/21 18:28 Social History household members: spouse Smoking Status: Current some day smoker tobacco type: cigarettes substance use type: does not use ROS ROS ED Constitutional Constitutional ED: Denies chills, fever(s) or sweats Eyes Eyes: Denies blurry vision or change in vision ENT ENT ED: Denies ear pain or sore throat Cardiovascular Cardiovascular: Denies chest pain, palpitations or racing heartbeat Respiratory/Chest Respiratory/Chest: Denies cough, dyspnea or sputum Gastrointestinal Gastrointestinal: Denies abdominal pain, constipation, diarrhea, nausea or vomiting Genitourinary Genitourinary ED: Denies dysuria, hematuria or urinary frequency Musculoskeletal Musculoskeletal: Reports other Details: Right knee pain Integumentary Denies abscess, Abrasions or rash Neurologic Neurologic: Denies headache(s), paresthesias or weakness Psychiatric Psychiatric: Denies anxiety, depression, suicidal ideation or suicidal thoughts Endocrine Endocrinology: Denies polydipsia or polyuria EXAM Physical Exam Const Vital Signs: 12/03/21 18:27 12/03/21 21:14 Temperature 98.2 F Temperature Source Temporal Pulse Rate 60 82 Respiratory Rate 16 18 Blood Pressure 166/10 H Blood Pressure Mean 62 Pulse Ox 93 99 Oxygen Delivery Method Room Air Positive well nourished General Appearance ED: NAD HEENT normocephalic and atraumatic Eyes PERRL Chest Wall inspection of chest normal Resp normal respiratory effort Cardio regular rate and regular rhythm Extremity Extremity Narrative: Right knee exam: Right knee extensor mechanism intact. No obvious effusion. No rash, ecchymosis, swelling. Patient maintains full range of motion in flexion and extension. No ligamentous laxity. Neuro oriented x3 and CN's II-XII intact bilaterally Sensorium / Orientation: alert Psych mental status grossly normal Skin Lesions: no lesions Rashes: no rashes MDM MDM MDM Narrative Medical decision making narrative: Patient has continued pain and states that his knee is clicking when he is walking. He followed up with his PCP who reports did not do anything. I will obtain a repeat image of the knee. Patient was initially given a Lidoderm patch to help with his pain because this has been going on for 2 months. He requested something stronger and was given a [place]. X-ray of the right knee on my interpretation shows degenerative changes consistent with arthritis. There is a small joint effusion. I do not believe the patient needs narcotics for home. I did recommend that he follow-up with orthopedics if he still having pain and he was given a referral. He can also follow-up with his PCP. Patient discharged home in stable condition. Impression: 1. Right knee pain 2. Small right knee Lab Data Attestation: I reviewed the patient's lab results. Radiography Diagnostic Testing: Clinical Impression(s) from Imaging Studies Knee X-Ray 12/03/21 18:45 IMPRESSION: 1. Early osteoarthritic changes with minimal osteophyte formation and small joint effusion. 2. No fractures or destructive bony process noted. Electronically Signed: Hi Triplett MD at 19:52 EDT Reading Location ID and State: [address] [place] [address] Tel , Service support , Discharge Plan Triage Chief Complaint: Lower Extremity Injury ED Provider: Bebeto Morales Dx/Rx/DC Orders Instructions: Knee Pain Prescriptions: No Action amitriptyline 10 MG tablet 25 mg PO QHS RF: 0 lisinopril 5 MG tablet 10 mg PO DAILY RF: 0 Lovastatin [Mevacor] 40 MG tablet 40 mg PO QHS RF: 0 Stool Softener 50 MG capsule 50 mg PO DAILY RF: 0 levothyroxine 150 MCG tablet 150 mcg PO DAILY RF: 0 apixaban 5 MG tablet 5 mg PO DAILY RF: 0 gabapentin 300 MG capsule 300 mg PO Q6H RF: 0 pramoxine [Proctofoam] 1 % foam 1 applic NM TID PRN (Reason: rectal discomfort) Qty: 15 RF: 0 amoxicillin-pot clavulanate 875-125 mg tablet 1 tab PO BID Qty: 20 RF: 0 Primary Care Provider: Levon Corral Referrals: Vineet Maravilla DO [STAFF PHYSICIAN] - As soon as possible Levon Corral MD [Primary Care Provider] - Disposition Disposition: Home, Self Care Discharge Date/Time: 12/03/21 21:15
[2021-12-03] MEDS: Lidocaine 5% Patch 1 PATCH TOPICAL (18:43)
--- NOTE | 2021-12-03 18:45 | RAD_ITS ---
INDICATION: pain EXAMINATION/TECHNIQUE: X-RAY - RIGHT XR Knee Complete 4 Views or More 4 VIEWS COMPARISON: None. FINDINGS: SOFT TISSUES: No soft tissue swelling or gas. No radiopaque foreign body. BONES/JOINTS: No acute fracture or subluxation.. There is normal alignment with the exception of mild medial joint space narrowing and subchondral deformity of the medial femoral condyle. There is a small joint effusion. Minimal medial osteophyte formation and patellofemoral osteophytes.. No sclerotic or destructive changes observed. RAD/Knee 4 or More Views IMPRESSION: 1. Early osteoarthritic changes with minimal osteophyte formation and small joint effusion. 2. No fractures or destructive bony process noted. Electronically Signed: Hi Triplett MD at 19:52 EDT ,
[2021-12-03] MEDS: HYDROcodone Bitartrate/Apap 5/325 Tablet PO (19:36)
[2021-12-03 21:14] VITALS: PULSE 82; RESP 18; O2SAT 99
== END 2021-12-03 21:15 | disposition home or self-care (01) ==
PROVIDERS: Emergency Provider Student in an Organized Health Care Education/Training Program; PCP Internal Medicine; Visit Provider Student in an Organized Health Care Education/Training Program
DX: M25.561 Pain in right knee (principal); M19.90 Unspecified osteoarthritis, unspecified site; F17.210 Nicotine dependence, cigarettes, uncomplicated; I10 Essential (primary) hypertension; M25.40 Effusion, unspecified joint
CPT/HCPCS: 73564; 99284

== ENCOUNTER 2022-09-27 10:50 | Emergency (ER) | payer MEDICARE, MEDICAID, SELFPAY ==
[2022-09-27 10:51] VITALS: BP 114/74; PULSE 72; RESP 18; TEMP 36.3; O2SAT 94; BMI 32.1
--- NOTE | 2022-09-27 11:38 | EKG12_ITS ---
Test Reason : BACK PAIN Blood Pressure : / mmHG Vent. Rate : 059 BPM Atrial Rate : 059 BPM P-R Int : 254 ms QRS Dur : 090 ms QT Int : 404 ms P-R-T Axes : 032 009 068 degrees QTc Int : 399 ms Sinus bradycardia with 1st degree A-V block Otherwise normal ECG Confirmed by NIKOS MARIE, AALIYAH ([id number]), scientific publications editor BERTO OVERTON ([id number]) on 09/28/2022 10:54:13 AM Referred By: Confirmed By:AALIYAH KNOTT MD
--- NOTE | 2022-09-27 11:46 | EX.ED.DYSGE1 ---
HPI <DEBORAH Harper - Last Filed: 09/27/22 14:04> History of Present Illness Chief Complaint: Back Narrative Narrative: 62-year-old male with history of atrial fibrillation on Eliquis, obesity, chronic back pain, hyperlipidemia, hypertension who presents the emergency department with acute on chronic low back pain. Patient states he woke up this morning with severe pain to his lower lumbar spine that radiates down both legs. He denies any difficulty urinating or going to the bathroom. He denies any paresthesia to his rectum or groin. Patient states that while he was here, he is in such severe pain that he now has chest pain and shortness of breath. He also states that he is belching more. He states that he has to get up and move around, he is able to walk. He denies any weakness to his lower extremities. Patient states that the pain is unbearable. He denies any fever or chills. PFSH <DEBORAH Harper - Last Filed: 09/27/22 14:04> [facility] Medical History Atrial flutter Back pain Hypertension Hypothyroidism Home Medications amitriptyline 10 mg tablet 25 mg PO QHS 06/23/13 [History Last Taken 10/30/16] Lovastatin [Mevacor] 40 mg PO QHS 11/18/14 [History Last Taken 10/30/16] lisinopril 5 mg tablet 10 mg PO DAILY 11/18/14 [History Last Taken 10/31/16] docusate sodium 50 mg capsule (Stool Softener) 50 mg PO DAILY 07/10/16 [History Last Taken Unknown] levothyroxine 150 mcg tablet 150 mcg PO DAILY 11/01/16 [History Last Taken Unknown] apixaban 5 mg tablet 5 mg PO DAILY 07/12/19 [History Last Taken Unknown] gabapentin 300 mg capsule 300 mg PO Q6H 10/08/19 [History Last Taken Unknown] amoxicillin 875 mg-potassium clavulanate 125 mg tablet 1 tab PO BID #20 tabs 10/21/21 [Rx Last Taken Unknown] pramoxine 1 % topical foam (Proctofoam) 1 applic TX TID PRN rectal discomfort #15 grams 10/21/21 [Rx Last Taken Unknown] methocarbamol 500 mg tablet 500 mg PO Q8H #14 tabs 09/27/22 [Rx Last Taken Unknown] oxycodone-acetaminophen 5 mg-325 mg tablet (Percocet) 1 tab PO Q8H PRN pain 3 days #10 tabs 09/27/22 [Rx Last Taken Unknown] Allergy/AdvReac Type Severity Reaction Status Date / Time prednisone AdvReac Itching Verified 09/27/22 10:52 Social History household members: spouse Smoking Status: Current some day smoker tobacco type: cigarettes substance use type: does not use ROS <DEBORAH Harper - Last Filed: 09/27/22 14:04> ROS ED ROS Narrative Constitutional: Negative for fever, chills, weight loss, weakness Eyes: Negative for vision loss, vision change, double vision ENT: Negative for any sore throat, ear pain, congestion Cardiovascular: Negative for any tightness, palpitations. Positive for chest pain Respiratory: Negative for any cough, sputum production, hemoptysis, dyspnea on exertion, orthopnea. Positive feeling of dyspnea Gastrointestinal: Negative for any abdominal pain, nausea, vomiting, diarrhea, constipation, blood in stool, blood in vomit : Negative for any urinary frequency, dysuria, retention, blood in urine Muscle skeletal: Negative for any muscle joint pain, stiffness, myalgias, arthralgias, neck pain. Positive for lower back pain that rates down both legs Neurological: Negative for any headache, syncope, numbness or tingling, dizziness Skin: Negative for any rashes, lumps, itching, abrasions, lacerations Psychiatric: Negative for any depression, anxiety, stress, suicidal ideation, homicidal ideation Hematologic: Negative for any easy bruising, excessive bruising, easy bleeding Allergies: Negative for any eczema, hives, rash EXAM <DEBORAH Harper - Last Filed: 09/27/22 14:04> Physical Exam Narrative Exam Narrative: Vital signs reviewed. Patient is constantly moving, screaming on pain, he states that he is a walker is walking around the room. He is complaining of pain around his lower lumbar spine, he has no weakness to his lower extremities that he is walking without difficulty. Patient also states he is belching more, as well as now complaining of chest pain or shortness of breath. HEET: Head normocephalic atraumatic, TMs clear bilaterally. Posterior pharynx is clear, moist mucous membranes. Nares clear bilaterally. Neck: Supple with no lymphadenopathy or tenderness. No signs of meningismus, negative jolt sign. Cardiac: Regular rate and rhythm no murmurs gallops or rubs, equal peripheral pulses bilaterally. Respiratory: Lungs clear to auscultation bilaterally. No chest tenderness. Abdomen: Soft, nontender, nondistended. No abdominal bruit or pulsatile masses. No hepatosplenomegaly Extremities: No peripheral edema, no signs of gross trauma or deformity. Active full range of motion of all extremities. Neuro: Cranial nerves II through XII intact, no focal neurological deficits. Equal pulses. Equal strength to his lower extremities. Skin: Clean dry and intact with no rash, purpura, petechiae, vesicles or pustules. Backs/flank: No CVA tenderness, no midline spinal tenderness, no deformity. Psych: Normal mood and affect. No SI, HI or acute psychosis. Const Vital Signs: 09/27/22 10:51 Temperature 97.4 F L Temperature Source Temporal Pulse Rate 72 Respiratory Rate 18 Blood Pressure 114/74 Blood Pressure Mean 87 Pulse Ox 94 Oxygen Delivery Method Room Air <Dr. Bebeto Morales DO - Last Filed: 09/27/22 17:41> Physical Exam Const Vital Signs: 09/27/22 10:51 Temperature 97.4 F L Temperature Source Temporal Pulse Rate 72 Respiratory Rate 18 Blood Pressure 114/74 Blood Pressure Mean 87 Pulse Ox 94 Oxygen Delivery Method Room Air [facility] <DEBORAH Harper - Last Filed: 09/27/22 14:04> [facility] Lab Data Labs: Laboratory Results - last 24 hr 09/27/22 09/27/22 09/27/22 11:58 11:58 12:50 WBC 9.6 RBC 4.80 Hgb 14.7 Hct 43.3 MCV 90.2 MCH 30.6 MCHC 33.9 RDW Std Deviation 41.8 RDW Coeff of Celeste 12.6 Plt Count 218 MPV 9.7 Immature Gran % (Auto) 0.200 Neut % (Auto) 64.7 Lymph % (Auto) 21.7 [place] % (Auto) 9.5 Eos % (Auto) 3.3 Baso % (Auto) 0.6 Absolute Neuts (auto) 6.2 Absolute Lymphs (auto) 2.08 Nucleated RBC % 0 Sodium 139 Potassium 3.5 Chloride 107 Carbon Dioxide 24.0 Anion Gap 8 BUN 17 Creatinine 0.93 Estim Creat Clear Calc 81.30 Est GFR (MDRD) Af Amer 105 Est GFR (MDRD) Non-Af 87 BUN/Creatinine Ratio 18.2 Glucose 113 H Calcium 9.4 Total Bilirubin 0.30 AST 24 ALT 21 Alkaline Phosphatase 64 Troponin I High Sens 13 Total Protein 7.5 Albumin 3.2 Globulin 4.3 H Albumin/Globulin Ratio 0.7 L Lipase 214 Urine Color Yellow Urine Clarity Clear Urine pH 7.0 Ur Specific [place] 1.010 Urine Protein Negative Urine Glucose (UA) Normal Urine Ketones Negative Urine Occult Blood Negative Urine Nitrite Negative Urine Bilirubin Negative Urine Urobilinogen Normal Ur Leukocyte Esterase Negative Urine RBC 0 SEEN Urine WBC 0 SEEN Ur Squamous Epith Cells 0 SEEN Urine Bacteria 0 SEEN Urine Mucus 0 SEEN Radiography Diagnostic Testing: Clinical Impression(s) from Imaging Studies Chest/Abdomen/Pelvis CTA 09/27/22 11:51 IMPRESSION: Stable large bulla in the right upper lobe. Endovaginal stent grafting of the infrarenal abdominal aortic aneurysm with no evidence of endoluminal stent graft leakage. Electronically Signed: Carlos Farias MD at 13:23 EDT , Differential Diagnosis Chest pain/SOB: ACS and aortic dissection Differential Diagnosis: Aortic rupture Why less likely: Negative CAT scan, pain has relieved. Differential Diagnosis: Pyelonephritis Why less likely: Normal urine. No signs or symptoms of obstructive pathology Treatment and Re-Evaluation :: All radiologic examinations were read, reviewed by the emergency department attending. From these reads, a plan of care will be put in place. Patient arrives in mild to moderate distress secondary to lower back pain that radiates down both legs. Patient states that this started when he woke up this morning. Patient does have history of a chronic back pain. Physical examination was consistent with lumbar radiculopathy however secondary to the patient's severe pain, aortic rupture as well as other pathology need to be excluded. Patient's laboratory values showed a normal CBC, patient's chemistries were unremarkable. Patient's troponin was negative. EKG was unremarkable, no evidence of any ACS OK. Patient's back physical exam showed no red flag signs, no evidence to suspect any cauda equina, spinal abscess. Patient did receive a CTA of the chest abdomen pelvis, this showed no acute process. No evidence of endoluminal stent graft leakage. Patient was medicated with IV fluids, IV morphine, IV Norflex. On reevaluation, the patient was sleeping. Patient feels much better would like to be discharged. At this time, I believe the patient we diagnosed with radicular lumbar back pain. He will follow-up closely. He be given a prescription for Percocet as well as Norflex. He is currently not in pain management. I did speak with the patient's at length, all questions were answered, return precautions given. Patient is stable for discharge. <Dr. Bebeto Morales, DO - Last Filed: 09/27/22 17:41> MDM MDM Narrative Medical decision making narrative: This patient was seen with a PA/WOODWORKING MACHINE OFFBEARER Individually assessed they patient including history and physical. I have reviewed everything on the chart that is available and agree with the documentation provided by the PA/WOODWORKING MACHINE OFFBEARER including discussion about the assessment, treatment plan, discussion, and return precautions. Patient arriving in severe pain in the lower back with history of chronic back pain but also history of aneurysm repair. It is difficult to reproduce his pain in the lower back. Patient medicated and blood work was obtained. Ultimately lab work-up was unremarkable. Patient had CTA of the chest abdomen pelvis to rule out dissection. This was negative. EKG on my interpretation is sinus rhythm at 59 bpm without sign of ischemic change. There is a first-degree AV block. Urinalysis negative. Patient medicated with Norflex. I feel he stable for discharge home. He is given a short supply pain medication. Return precautions discussed. Lab Data Attestation: I reviewed the patient's lab results. Labs: Laboratory Results - last 24 hr 09/27/22 09/27/22 09/27/22 11:58 11:58 12:50 WBC 9.6 RBC 4.80 Hgb 14.7 Hct 43.3 MCV 90.2 MCH 30.6 MCHC 33.9 RDW Std Deviation 41.8 RDW Coeff of Celeste 12.6 Plt Count 218 MPV 9.7 Immature Gran % (Auto) 0.200 Neut % (Auto) 64.7 Lymph % (Auto) 21.7 [place] % (Auto) 9.5 Eos % (Auto) 3.3 Baso % (Auto) 0.6 Absolute Neuts (auto) 6.2 Absolute Lymphs (auto) 2.08 Nucleated RBC % 0 Sodium 139 Potassium 3.5 Chloride 107 Carbon Dioxide 24.0 Anion Gap 8 BUN 17 Creatinine 0.93 Estim Creat Clear Calc 81.30 Est GFR (MDRD) Af Amer 105 Est GFR (MDRD) Non-Af 87 BUN/Creatinine Ratio 18.2 Glucose 113 H Calcium 9.4 Total Bilirubin 0.30 AST 24 ALT 21 Alkaline Phosphatase 64 Troponin I High Sens 13 Total Protein 7.5 Albumin 3.2 Globulin 4.3 H Albumin/Globulin Ratio 0.7 L Lipase 214 Urine Color Yellow Urine Clarity Clear Urine pH 7.0 Ur Specific [place] 1.010 Urine Protein Negative Urine Glucose (UA) Normal Urine Ketones Negative Urine Occult Blood Negative Urine Nitrite Negative Urine Bilirubin Negative Urine Urobilinogen Normal Ur Leukocyte Esterase Negative Urine RBC 0 SEEN Urine WBC 0 SEEN Ur Squamous Epith Cells 0 SEEN Urine Bacteria 0 SEEN Urine Mucus 0 SEEN Radiography Diagnostic Testing: Clinical Impression(s) from Imaging Studies Chest/Abdomen/Pelvis CTA 09/27/22 11:51 IMPRESSION: Stable large bulla in the right upper lobe. Endovaginal stent grafting of the infrarenal abdominal aortic aneurysm with no evidence of endoluminal stent graft leakage. Electronically Signed: Carlos Farias MD at 13:23 EDT , Discharge Plan Triage Chief Complaint: Back ED Midlevel Provider: Lauri Arroyo ED Provider: Bebeto Morales Dx/Rx/DC Orders Clinical Impression: Acute lumbar radiculopathy, Acute exacerbation of chronic low back pain Instructions: Self-Care for Low Back Pain, Common Spine and Disk Problems Prescriptions: New oxycodone-acetaminophen [Percocet] 5-325 mg tablet 1 tab PO Q8H PRN (Reason: pain) 3 Days Qty: 10 0RF methocarbamol 500 mg tablet 500 mg PO Q8H Qty: 14 0RF No Action amitriptyline 10 MG tablet 25 mg PO QHS Label Comments: mood lisinopril 5 MG tablet 10 mg PO DAILY Label Comments: blood pressure Lovastatin [Mevacor] 40 MG tablet 40 mg PO QHS Label Comments: cholesterol Stool Softener 50 MG capsule 50 mg PO DAILY Label Comments: stool softener levothyroxine 150 MCG tablet 150 mcg PO DAILY Label Comments: thyroid apixaban 5 MG tablet 5 mg PO DAILY Label Comments: TAKE 1 TABLET TWICE DAILY gabapentin 300 MG capsule 300 mg PO Q6H pramoxine [Proctofoam] 1 % foam 1 applic TX TID PRN (Reason: rectal discomfort) Qty: 15 0RF amoxicillin-pot clavulanate 875-125 mg tablet 1 tab PO BID Qty: 20 0RF Primary Care Provider: Levon Corral Referrals: Levon Corral MD [Primary Care Provider] - Disposition Disposition: Home, Self Care Discharge Date/Time: 09/27/22 14:15
--- NOTE | 2022-09-27 11:51 | CT_ITS ---
STUDY: CTA CHEST, ABDOMEN T PELVIS WITH CONTRAST REASON FOR EXAM: Male, 62 years old. Concern for aneurysm RADIATION DOSAGE (If Supplied By Facility): CTDIvol = ( 19.04 ) mGy, DLP = ( 1216.03 ) mGycm TECHNIQUE: Transaxial imaging was performed with administration of 100 mL of Isovue-370 intravenous contrast material. Individualized dose optimization techniques were used for this CT. COMPARISON: Comparison is made with prior examination dated May 01, 2021. FINDINGS: CHEST Small benign-appearing bilateral axillary lymph nodes. There is a large 9.8 cm x 12 cm bulla in the right lung apex. There is evidence of emphysematous change with evidence of some pleural scarring worse in the upper lobes. There is no demonstrated pleural abnormality. Normal heart and pericardium. There are multiple small lymph nodes within the mediastinum, which are normal in size and morphology most compatible with reactive lymph hyperplasia. Normal hilar regions. Normal unenhanced pulmonary arteries. Normal aorta arch and descending thoracic aorta. There are multi-level degenerative changes of the thoracic spine. There is no demonstrated abnormality of the visualized upper abdomen. ABDOMEN Normal liver. There are surgical clips in the gallbladder fossa consistent with a prior cholecystectomy. Normal spleen. Normal pancreas. Normal bilateral adrenal glands. Normal right kidney. Normal left kidney. Normal visualized stomach. Normal small intestine. There are multiple colonic diverticula consistent with diverticulosis. The appendix is visualized and appears normal. There is evidence of a fusiform infrarenal abdominal aortic aneurysm. The jackson aorta measures 3.8 cm in transverse dimension. Endoluminal stent grafting is seen in the proximal portion in the abdominal aorta just distal to the origin of the superior mesenteric artery. The distal limbs are seen in the distal abdominal aorta with extension into the iliac arteries bilaterally. No evidence of the endoluminal stent leakage. There is dilatation of the right common iliac artery measuring 2.4 cm in transverse dimension. There is evidence of a metallic embolization in the branches in the right hemipelvis. Normal inferior vena cava. Normal retroperitoneum. Surgical clips are seen in the right groin. There are diffuse degenerative changes of the visualized lumbar spine. PELVIS The urinary bladder is distended. Prostatic enlargement. It measures 5 cm x 6 cm. This causes indentation patient at the bladder base. CT/CTA Chst, Abd, Pel W and/or WO IMPRESSION: Stable large bulla in the right upper lobe. Endovaginal stent grafting of the infrarenal abdominal aortic aneurysm with no evidence of endoluminal stent graft leakage. Electronically Signed: Carlos Farias MD at 13:23 EDT ,
[2022-09-27] MEDS: 0.9% Normal Saline 1,000 ML 1000 ML IV (12:02)
[2022-09-27] MEDS: Orphenadrine 60 MG/2 ML Ampul IV (12:03)
[2022-09-27] MEDS: Morphine 4 MG/ML Syringe IV (12:03)
[2022-09-27 12:04] LABS: Absolute Lymphocyte Count 2.08 X10^3/uL (0.83-4.51); Absolute Neutrophil Count 6.2 X10^3/uL (2.0-7.7); Basophil# 0.06 X10^3/uL; Basophil% 0.6 % (0-1); Eosinophil# 0.32 X10^3/uL; Eosinophils% 3.3 % (0-5); Hematocrit 43.3 % (40-54); Hemoglobin 14.7 g/dL (13.0-16.5); Lymphocyte # 2.08 X10^3/ul (0.83-4.51); Lymphocyte % 21.7 % (19-41); Mean Corp Hgb Conc 33.9 g/dL (32-36); Mean Corpuscular Hgb 30.6 pg (27.0-32.0); Mean Corpuscular Volume 90.2 fL (80-94); Mean Platelet Vol. 9.7 fl (6.2-12.0); Monocyte# 0.91 X10^3/uL; Monocyte% 9.5 % (0-10); NRBC Flagged by Analyzer 0 % (0-5); Neutrophil # 6.21 X10^3/uL (2.7-7.7); Neutrophil % 64.7 % (47-70); Platelet Count 218 K/mm3 (150-450); RBC Distribution Width CV 12.6 % (11.6-14.6); RBC Distribution Width SD 41.8 fl (35.1-43.9); White Blood Count 9.6 K/mm3 (4.4-11.0)
[2022-09-27 12:20] LABS: ALB/GLOB Ratio 0.7 RATIO (0.9-2.4); AST(SGOT) 24 U/L (15-37); Alanine Aminotransfer ALT/SGPT 21 U/L (16-61); Albumin, Serum 3.2 g/dL (3.2-5.0); Alkaline Phosphatase 64 U/L (45-117); Anion Gap 8 (5-15); BUN 17 mg/dL (7-18); BUN/Creat Ratio 18.2 RATIO (10-20); Calcium,Total 9.4 mg/dL (8.5-10.1); Chloride 107 mmol/L (98-107); Creatinine, Serum 0.93 mg/dL (0.70-1.30); EST Glomerular Filtration Rate 87 mL/min (>60); Est Glom Filt Rate - Afr Amer 105 mL/min (>60); Globulin 4.3 g/dL (2.2-4.2); Glucose 113 mg/dL (74-106); Lipase 214 U/L (73-393); Potassium 3.5 mmol/L (3.5-5.1); Protein, Total 7.5 g/dL (6.4-8.2); Sodium Level 139 mmol/L (136-145); Troponin-I HS 13 pg/mL (3.0-78.0)
[2022-09-27 12:58] LABS: Bacteria 0 SEEN /hpf (None Seen); Mucous, Urine 0 SEEN /hpf (<or=2+); Red Blood Cells-Urine 0 SEEN /hpf (0-5); Squamous Epithelial Cells - UA 0 SEEN /hpf (0-5); White Blood Cells 0 SEEN /hpf (0-5)
[2022-09-27 13:07] LABS: Color, Urine Yellow (Yellow); Glucose, Dipstick Normal (Normal); Ketone-Dipstick Negative (Negative); Leukocyte Esterase-Dipstick Negative /ul (Negative); Nitrite-Dipstick Negative (Negative); Occult Blood-Urine Negative /ul (Negative); Protein-Dipstick Negative (Negative); Urine Bilirubin Dipstick Negative (Negative); Urine Clarity Clear (Clear); Urine Urobilinogen Normal (Normal)
== END 2022-09-27 14:15 | disposition home or self-care (01) ==
PROVIDERS: Nurse Practitioner; Emergency Provider Student in an Organized Health Care Education/Training Program; PCP Internal Medicine; Visit Provider Student in an Organized Health Care Education/Training Program
DX: M54.16 Radiculopathy, lumbar region (principal); E78.5 Hyperlipidemia, unspecified; I10 Essential (primary) hypertension; E66.9 Obesity, unspecified; F17.210 Nicotine dependence, cigarettes, uncomplicated; I44.0 Atrioventricular block, first degree; R06.02 Shortness of breath; G89.29 Other chronic pain; M54.50 Low back pain, unspecified; E03.9 Hypothyroidism, unspecified
CPT/HCPCS: 71275; 74174; 80053; 81001; 83690; 84484; 85025; 93005; 96361; 96374; 96375; 99283; J7030; Q9967; A4216

== ENCOUNTER 2022-10-04 16:13 | Emergency (ER) | payer MEDICARE, MEDICAID, SELFPAY ==
[2022-10-04 16:15] VITALS: BP 107/61; PULSE 63; RESP 14; TEMP 36.1; O2SAT 97; BMI 31.6
--- NOTE | 2022-10-04 16:44 | EKG12_ITS ---
Test Reason : SOB/CP Blood Pressure : / mmHG Vent. Rate : 064 BPM Atrial Rate : 064 BPM P-R Int : 214 ms QRS Dur : 090 ms QT Int : 412 ms P-R-T Axes : 058 029 070 degrees QTc Int : 425 ms Sinus rhythm with 1st degree A-V block Otherwise normal ECG Confirmed by JULIANA MARIE, JAZMYNE ([id number]), society editor MEEK VILLAREAL ([id number]) on 10/08/2022 10:52:05 AM Referred By: [place] Confirmed By:JORDAN ANDREWS MD
--- NOTE | 2022-10-04 16:51 | EDS_ITS ---
HPI <CIERA Moss - Last Filed: 10/04/22 19:59> History of Present Illness Chief Complaint: Shortness of Breath Narrative Narrative: Presenting with shortness of breath that started around 3:30 pm this afternoon. He states that he walked to [place] and back and that is when the shortness of breath started and it has improved some but he still feels slightly short of breath. He states the inhalers he has for COPD have not helped. Patient states that he has a history of atrial fibrillation on Eliquis and COPD. He denies a history of any blood clots. He states that last night he felt feverish and chilled, he has had a runny nose over the past few days, and has had a productive cough over the past 2 to 3 days. Patient does smoke half a pack per day. He denies chest pain, abdominal pain, nausea, and vomiting. [facility] <CIERA Moss - Last Filed: 10/04/22 19:59> [facility] Medical History Atrial flutter Back pain Hypertension Hypothyroidism Home Medications amitriptyline 10 mg tablet 25 mg PO QHS 06/23/13 [History Last Taken 10/30/16] Lovastatin [Mevacor] 40 mg PO QHS 11/18/14 [History Last Taken 10/30/16] lisinopril 5 mg tablet 10 mg PO DAILY 11/18/14 [History Last Taken 10/31/16] docusate sodium 50 mg capsule (Stool Softener) 50 mg PO DAILY 07/10/16 [History Last Taken Unknown] levothyroxine 150 mcg tablet 150 mcg PO DAILY 11/01/16 [History Last Taken Unknown] apixaban 5 mg tablet 5 mg PO DAILY 07/12/19 [History Last Taken Unknown] gabapentin 300 mg capsule 300 mg PO Q6H 10/08/19 [History Last Taken Unknown] amoxicillin 875 mg-potassium clavulanate 125 mg tablet 1 tab PO BID #20 tabs 10/21/21 [Rx Last Taken Unknown] pramoxine 1 % topical foam (Proctofoam) 1 applic [place] TID PRN rectal discomfort #15 grams 10/21/21 [Rx Last Taken Unknown] methocarbamol 500 mg tablet 500 mg PO Q8H #14 tabs 09/27/22 [Rx Last Taken Unknown] oxycodone-acetaminophen 5 mg-325 mg tablet (Percocet) 1 tab PO Q8H PRN pain 3 days #10 tabs 09/27/22 [Rx Last Taken Unknown] prednisone 50 mg tablet 50 mg PO DAILY 5 days #5 tabs 10/04/22 [Rx Last Taken Unknown] Allergy/AdvReac Type Severity Reaction Status Date / Time prednisone AdvReac Itching Verified 10/04/22 16:14 Social History household members: spouse Smoking Status: Current some day smoker tobacco type: cigarettes substance use type: does not use ROS <CIERA Moss - Last Filed: 10/04/22 19:59> ROS ED Constitutional Constitutional ED: Denies chills, fever(s) or sweats Eyes Eyes: Denies blurry vision or diplopia Cardiovascular Cardiovascular: Denies chest pain or palpitations Respiratory/Chest Respiratory/Chest: Reports cough, dyspnea and dyspnea on exertion Gastrointestinal Gastrointestinal: Denies abdominal pain, constipation or nausea Musculoskeletal Musculoskeletal: Reports back pain; Denies arthralgias, myalgias or neck pain Integumentary Denies abscess, Abrasions or rash Neurologic Neurologic: Denies confusion, dizziness or paresthesias Psychiatric Psychiatric: Denies anxiety, depression, suicidal ideation or suicidal thoughts EXAM <CIERA Moss - Last Filed: 10/04/22 19:59> Physical Exam Const Vital Signs: 10/04/22 16:15 10/04/22 17:06 10/04/22 17:13 Temperature 97 F L Temperature Source Temporal Pulse Rate 63 65 Respiratory Rate 14 18 Respiratory Effort Normal Non-Labored Respiratory Depth Normal Respiratory Pattern Normal Normal Blood Pressure 107/61 Blood Pressure Mean 76 Pulse Ox 97 Oxygen Delivery Method Room Air Room Air 10/04/22 18:13 10/04/22 20:00 Temperature Temperature Source Pulse Rate 54 L 59 L Respiratory Rate 15 18 Respiratory Effort Respiratory Depth Respiratory Pattern Blood Pressure Blood Pressure Mean Pulse Ox 94 99 Oxygen Delivery Method Room Air Positive well nourished, well developed and no apparent distress General Appearance ED: well developed HEENT Reports normocephalic and head/scalp atraumatic Mouth ED: Yes moist mucous membranes normal Eyes PERRL and EOMs intact bilaterally Neck full ROM and supple Chest Wall inspection of chest normal Resp normal respiratory effort and clear to auscultation bilaterally Cardio regular rate and regular rhythm GI soft to palpation, non-tender, non-distended and no masses Back/Spine normal ROM and normal to inspection Extremity normal to inspection and full ROM Neuro oriented x3, CN's II-XII intact bilaterally, moves all extremities, no focal motor deficits and no sensory deficits noted Sensorium / Orientation: awake and alert Psych mental status grossly normal and thought process normal Skin no rashes or lesions noted and no wounds <Dr. Mil Kerr DO - Last Filed: 10/04/22 22:45> Physical Exam Const Vital Signs: 10/04/22 16:15 10/04/22 17:06 10/04/22 17:13 Temperature 97 F L Temperature Source Temporal Pulse Rate 63 65 Respiratory Rate 14 18 Respiratory Effort Normal Non-Labored Respiratory Depth Normal Respiratory Pattern Normal Normal Blood Pressure 107/61 Blood Pressure Mean 76 Pulse Ox 97 Oxygen Delivery Method Room Air Room Air 10/04/22 18:13 10/04/22 20:00 Temperature Temperature Source Pulse Rate 54 L 59 L Respiratory Rate 15 18 Respiratory Effort Respiratory Depth Respiratory Pattern Blood Pressure Blood Pressure Mean Pulse Ox 94 99 Oxygen Delivery Method Room Air [facility] <CIERA Moss - Last Filed: 10/04/22 19:59> [facility] Narrative Medical decision making narrative: Patient presenting with shortness of breath that started this afternoon. The SOB did start on exertion and has improved some since then but is still present. Patient is well-appearing and does not appear to be in any acute distress. He is 97% on room air and he is not tachypneic. Patient has had cold symptoms over the past few days, rapid COVID and flu will be obtained to rule this out. Labs to be obtained to rule out ACS. I do not feel that this is a blood clot as patient is on Eliquis for his A-fib. Chest x-ray does not show any acute cardiopulmonary process. Troponin and delta troponin WNL. Because of patient's history of COPD, he will be given a short course of prednisone. He has been given return precautions and will be discharged home in stable condition. I have personally performed a face to face assessment of the patient and have reviewed the SUJATA Note. I performed a substantive portion of the visit including all aspects of the following. My elaine findings include: History is [patient presents with shortness of breath that started today after walking to the gas station around 3:30 PM. Patient denies chest pain. He denies recent illness. Patient did not feel like he was wheezing. He denies sick contacts. Denies recent travel or surgery. Patient currently on Eliquis for history of A-fib.] Exam is [HEENT-PERRLA, EOMI. Cranial nerves II through XII grossly intact. TMs clear. Mucous membranes moist. No adenopathy. Cardiovascular-regular rate and rhythm without murmur or ectopy Lungs-clear to auscultation, chest wall stable without crepitus or subcu emphysema Abdomen-normoactive bowel sounds, soft, nontender, no rebound or rigidity, no peritoneal signs. Extremities-intact ?4, normal range of motion, normal pulses, atraumatic] Medical Decison Making [patient had work-up in the emergency department occluding EKG as well as lab work. CBC with differential was normal. Chemistries unremarkable. Potassium slightly depressed at 3.2. Troponin was 12 and delta troponin was 10. Chest x-ray obtained showed no acute disease process. At this point etiology of his dyspnea is unclear. He does have history of COPD although I did not hear a lot of wheezing here. Patient will be treated with prednisone for 5 days. He does claim prednisone as an allergy and he says that he had itching with it at 1 time but subsequently has had it since and has had no issues with it. Patient advised to follow-up with his primary care physician within next 3 to 5 days. He is advised to return if increasing shortness of breath or condition should worsen anyway.] Other additions or changes: [None] Lab Data Attestation: I reviewed the patient's lab results. Labs: Laboratory Results - last 24 hr 10/04/22 10/04/22 10/04/22 17:32 17:32 18:50 WBC 8.7 RBC 4.64 Hgb 14.2 Hct 42.3 MCV 91.2 MCH 30.6 MCHC 33.6 RDW Std Deviation 41.6 RDW Coeff of Celeste 12.7 Plt Count 197 MPV 9.8 Immature Gran % (Auto) 0.300 Neut % (Auto) 56.6 Lymph % (Auto) 26.8 [place] % (Auto) 12.4 H Eos % (Auto) 3.1 Baso % (Auto) 0.8 Absolute Neuts (auto) 4.9 Absolute Lymphs (auto) 2.32 Nucleated RBC % 0 Sodium 140 Potassium 3.2 L Chloride 109 H Carbon Dioxide 29.0 Anion Gap 2 L BUN 21 H Creatinine 1.05 Estim Creat Clear Calc 72.01 Est GFR (MDRD) Af Amer 92 Est GFR (MDRD) Non-Af 76 BUN/Creatinine Ratio 20.0 Glucose 126 H Calcium 9.2 Troponin I High Sens 12 10 Radiography Diagnostic Testing: Clinical Impression(s) from Imaging Studies Chest X-Ray 10/04/22 17:15 IMPRESSION: No acute findings in the chest. Electronically Signed: Erick Lovett MD at 17:41 EDT , <Dr. Mil Kerr, DO - Last Filed: 10/04/22 22:45> [facility] MDM Narrative Medical decision making narrative: Patient presenting with shortness of breath that started this afternoon. The SOB did start on exertion and has improved some since then but is still present. Patient is well-appearing and does not appear to be in any acute distress. He is 97% on room air and he is not tachypneic. Patient has had cold symptoms over the past few days, rapid COVID and flu will be obtained to rule this out. Labs to be obtained to rule out ACS. I do not feel that this is a blood clot as patient is on Eliquis for his A-fib. Chest x-ray does not show any acute cardiopulmonary process. Troponin and delta troponin WNL. Because of patient's history of COPD, he will be given a short course of prednisone. He has been given return precautions and will be discharged home in stable condition. I have personally performed a face to face assessment of the patient and have reviewed the SUJATA Note. I performed a substantive portion of the visit including all aspects of the following. My elaine findings include: History is [patient presents with shortness of breath that started today after walking to the gas station around 3:30 PM. Patient denies chest pain. He denies recent illness. Patient did not feel like he was wheezing. He denies sick contacts. Denies recent travel or surgery. Patient currently on Eliquis for history of A-fib.] Exam is [HEENT-PERRLA, EOMI. Cranial nerves II through XII grossly intact. TMs clear. Mucous membranes moist. No adenopathy. Cardiovascular-regular rate and rhythm without murmur or ectopy Lungs-clear to auscultation, chest wall stable without crepitus or subcu emphysema Abdomen-normoactive bowel sounds, soft, nontender, no rebound or rigidity, no peritoneal signs. Extremities-intact ?4, normal range of motion, normal pulses, atraumatic] Medical Decison Making [patient had work-up in the emergency department occluding EKG as well as lab work. CBC with differential was normal. Chemistries unremarkable. Potassium slightly depressed at 3.2. Troponin was 12 and delta troponin was 10. Chest x-ray obtained showed no acute disease process on my interpretation without evidence of infiltrate or pneumothorax. Radiology in agreement.. At this point etiology of his dyspnea is unclear. He does have history of COPD although I did not hear a lot of wheezing here. Patient will be treated with prednisone for 5 days. He does claim prednisone as an allergy and he says that he had itching with it at 1 time but subsequently has had it since and has had no issues with it. Patient advised to follow-up with his primary care physician within next 3 to 5 days. He is advised to return if increasing shortness of breath or condition should worsen anyway.] Other additions or changes: [None] Lab Data Labs: Laboratory Results - last 24 hr 10/04/22 10/04/22 10/04/22 17:32 17:32 18:50 WBC 8.7 RBC 4.64 Hgb 14.2 Hct 42.3 MCV 91.2 MCH 30.6 MCHC 33.6 RDW Std Deviation 41.6 RDW Coeff of [place]este 12.7 Plt Count 197 MPV 9.8 Immature Gran % (Auto) 0.300 Neut % (Auto) 56.6 Lymph % (Auto) 26.8 [place] % (Auto) 12.4 H Eos % (Auto) 3.1 Baso % (Auto) 0.8 Absolute Neuts (auto) 4.9 Absolute Lymphs (auto) 2.32 Nucleated RBC % 0 Sodium 140 Potassium 3.2 L Chloride 109 H Carbon Dioxide 29.0 Anion Gap 2 L BUN 21 H Creatinine 1.05 Estim Creat Clear Calc 72.01 Est GFR (MDRD) Af Amer 92 Est GFR (MDRD) Non-Af 76 BUN/Creatinine Ratio 20.0 Glucose 126 H Calcium 9.2 Troponin I High Sens 12 10 Radiography Diagnostic Testing: Clinical Impression(s) from Imaging Studies Chest X-Ray 10/04/22 17:15 IMPRESSION: No acute findings in the chest. Electronically Signed: Erick Lovett MD at 17:41 EDT , 1 view chest ray obtained interpreted by myself no acute disease process. There is no evidence of infiltrate or pneumothorax. Radiology was in agreement. EKG Initial EKG: Attestation: I personally reviewed and interpreted this EKG as follows: Comments: Sinus rhythm with ventricular rate of 64 bpm with no acute ST segment changes Discharge Plan Triage Chief Complaint: Shortness of Breath ED Midlevel Provider: Jyotsna Washington ED Provider: Mil Kerr Dx/Rx/DC Orders Clinical Impression: Acute dyspnea, COPD (chronic obstructive pulmonary disease) Instructions: ED Dyspnea Prescriptions: New prednisone 50 mg tablet 50 mg PO DAILY 5 Days Qty: 5 0RF No Action amitriptyline 10 MG tablet 25 mg PO QHS Label Comments: mood lisinopril 5 MG tablet 10 mg PO DAILY Label Comments: blood pressure Lovastatin [Mevacor] 40 MG tablet 40 mg PO QHS Label Comments: cholesterol Stool Softener 50 MG capsule 50 mg PO DAILY Label Comments: stool softener levothyroxine 150 MCG tablet 150 mcg PO DAILY Label Comments: thyroid apixaban 5 MG tablet 5 mg PO DAILY Label Comments: TAKE 1 TABLET TWICE DAILY gabapentin 300 MG capsule 300 mg PO Q6H pramoxine [Proctofoam] 1 % foam 1 applic [place] TID PRN (Reason: rectal discomfort) Qty: 15 0RF amoxicillin-pot clavulanate 875-125 mg tablet 1 tab PO BID Qty: 20 0RF oxycodone-acetaminophen [Percocet] 5-325 mg tablet 1 tab PO Q8H PRN (Reason: pain) 3 Days Qty: 10 0RF methocarbamol 500 mg tablet 500 mg PO Q8H Qty: 14 0RF Primary Care Provider: Levon Corral Referrals: Levon Corral MD [Primary Care Provider] - 3-5 Days Activity Restrictions/Additional Instructions: Please follow-up with your PCP, return for any worsening of symptoms. Disposition Disposition: Home, Self Care Discharge Date/Time: 10/04/22 20:25
[2022-10-04] MEDS: Ipratropium/Albuterol Sulfate 3 ML AMPUL.NEB INHALATION (17:05)
[2022-10-04 17:06] VITALS: PULSE 65; RESP 18
[2022-10-04 17:13] VITALS: O2SAT 93
--- NOTE | 2022-10-04 17:15 | RAD_ITS ---
EXAM: XR CHEST, 2 VIEWS CLINICAL INDICATION: chest pain TECHNIQUE: Frontal and lateral views of the chest. This report was created using [employer] report generation technology. COMPARISON: 08.29.21 FINDINGS: LUNGS AND PLEURAL SPACES: Stable large bulla in the right upper lobe. No pneumothorax. No effusion. HEART: Unremarkable. Cardiac silhouette not enlarged. MEDIASTINUM: Central airways and mediastinal contour are unremarkable. BONES/JOINTS: Unremarkable. SOFT TISSUES: Unremarkable. RAD/Chest PA and Lateral IMPRESSION: No acute findings in the chest. Electronically Signed: Erick Lovett MD at 17:41 EDT ,
[2022-10-04 17:40] LABS: Absolute Lymphocyte Count 2.32 X10^3/uL (0.83-4.51); Absolute Neutrophil Count 4.9 X10^3/uL (2.0-7.7); Basophil# 0.07 X10^3/uL; Basophil% 0.8 % (0-1); Eosinophil# 0.27 X10^3/uL; Eosinophils% 3.1 % (0-5); Hematocrit 42.3 % (40-54); Hemoglobin 14.2 g/dL (13.0-16.5); Lymphocyte # 2.32 X10^3/ul (0.83-4.51); Lymphocyte % 26.8 % (19-41); Mean Corp Hgb Conc 33.6 g/dL (32-36); Mean Corpuscular Hgb 30.6 pg (27.0-32.0); Mean Corpuscular Volume 91.2 fL (80-94); Mean Platelet Vol. 9.8 fl (6.2-12.0); Monocyte# 1.07 X10^3/uL; Monocyte% 12.4 % (0-10); NRBC Flagged by Analyzer 0 % (0-5); Neutrophil % 56.6 % (47-70); Platelet Count 197 K/mm3 (150-450); RBC Distribution Width CV 12.7 % (11.6-14.6); RBC Distribution Width SD 41.6 fl (35.1-43.9); Red Blood Count 4.64 M/mm3 (4.6-6.2); White Blood Count 8.7 K/mm3 (4.4-11.0)
[2022-10-04 17:57] LABS: Anion Gap 2 (5-15); BUN 21 mg/dL (7-18); Calcium,Total 9.2 mg/dL (8.5-10.1); Chloride 109 mmol/L (98-107); Creatinine, Serum 1.05 mg/dL (0.70-1.30); EST Glomerular Filtration Rate 76 mL/min (>60); Est Glom Filt Rate - Afr Amer 92 mL/min (>60); Estimated Creatinine Clearance 72.01 ml/min; Glucose 126 mg/dL (74-106); Potassium 3.2 mmol/L (3.5-5.1); Sodium Level 140 mmol/L (136-145); Troponin-I HS (w/2H Reflex) 12 pg/mL (3.0-78.0)
[2022-10-04 18:13] VITALS: PULSE 54; RESP 15; O2SAT 94
[2022-10-04] MEDS: Potassium Chloride Oral Tablet 20 MEQ 40 MEQ PO (18:35)
[2022-10-04 19:29] LABS: Troponin-I HS 10 pg/mL (3.0-78.0)
[2022-10-04 20:00] VITALS: PULSE 59; RESP 18; O2SAT 99
== END 2022-10-04 20:25 | disposition home or self-care (01) ==
PROVIDERS: Physician Assistant; Emergency Provider Emergency Medicine; PCP Internal Medicine; Visit Provider Emergency Medicine
DX: J44.0 Chronic obstructive pulmonary disease with (acute) lower respiratory infection (principal); I48.91 Unspecified atrial fibrillation; I10 Essential (primary) hypertension; F17.210 Nicotine dependence, cigarettes, uncomplicated; R06.00 Dyspnea, unspecified; Z79.01 Long term (current) use of anticoagulants; E03.9 Hypothyroidism, unspecified
CPT/HCPCS: 71046; 80048; 84484; 85025; 87040; 87428; 93005; 94640; 99284; A4216

== ENCOUNTER 2023-02-07 18:39 | Emergency (ER) | payer MEDICARE, MEDICAID, SELFPAY ==
[2023-02-07 18:39] VITALS: BP 161/83; PULSE 56; RESP 21; TEMP 36.4; O2SAT 99; BMI 33.2
[2023-02-07 18:46] VITALS: BP 176/100; PULSE 52; RESP 13; O2SAT 98
--- NOTE | 2023-02-07 18:53 | EKG12_ITS ---
Test Reason : DYSRHYTHMIA Blood Pressure : / mmHG Vent. Rate : 051 BPM Atrial Rate : 051 BPM P-R Int : 272 ms QRS Dur : 100 ms QT Int : 444 ms P-R-T Axes : 023 -13 055 degrees QTc Int : 409 ms Sinus bradycardia with 1st degree A-V block Otherwise normal ECG Confirmed by NIKOS MARIE, AALIYAH ([id number]), design editor BERTO OVERTON ([id number]) on 02/08/2023 10:03:47 AM Referred By: REAL Confirmed By:AALIYAH KNOTT MD
--- NOTE | 2023-02-07 18:55 | ED.VIS.DYS ---
HPI History of Present Illness Chief Complaint: Shortness of Breath Informant: patient Onset/Context/Timing Onset: Days Context: gradual Narrative Narrative: Patient presents with shortness of breath that been ongoing for the past 2 to 3 days. He states a couple days ago he laid down to sleep. When laying down he started coughing harshly and since then has had some tightness in his chest when he coughs. He has continued to feel short of breath. He states his symptoms are definitely worse when he tries to lie down to sleep. He has not noted a fever. He is not coughing up anything. He does have a history of COPD and does feel like he is wheezing. He states when he is coughing harshly he will get lightheaded as if he may pass out. [facility] Medical History Atrial flutter Back pain Hypertension Hypothyroidism Home Medications amitriptyline 10 mg tablet 25 mg PO QHS 06/23/13 [History Last Taken 10/30/16] Lovastatin [Mevacor] 40 mg PO QHS 11/18/14 [History Last Taken 10/30/16] lisinopril 5 mg tablet 10 mg PO DAILY 11/18/14 [History Last Taken 10/31/16] docusate sodium 50 mg capsule (Stool Softener) 50 mg PO DAILY 07/10/16 [History Last Taken Unknown] levothyroxine 150 mcg tablet 150 mcg PO DAILY 11/01/16 [History Last Taken Unknown] apixaban 5 mg tablet 5 mg PO DAILY 07/12/19 [History Last Taken Unknown] gabapentin 300 mg capsule 300 mg PO Q6H 10/08/19 [History Last Taken Unknown] amoxicillin 875 mg-potassium clavulanate 125 mg tablet 1 tab PO BID #20 tabs 10/21/21 [Rx Last Taken Unknown] pramoxine 1 % topical foam (Proctofoam) 1 applic [place] TID PRN rectal discomfort #15 grams 10/21/21 [Rx Last Taken Unknown] methocarbamol 500 mg tablet 500 mg PO Q8H #14 tabs 09/27/22 [Rx Last Taken Unknown] oxycodone-acetaminophen 5 mg-325 mg tablet (Percocet) 1 tab PO Q8H PRN pain 3 days #10 tabs 09/27/22 [Rx Last Taken Unknown] prednisone 50 mg tablet 50 mg PO DAILY 5 days #5 tabs 10/04/22 [Rx Last Taken Unknown] azithromycin 250 mg tablet (Zithromax) 250 mg PO DAILY 4 days #4 tabs 02/07/23 [Rx Last Taken Unknown] dextromethorphan HBr 15 mg/5 mL oral syrup 15 mg (5 mL) PO Q8H PRN cough #118 mL 02/07/23 [Rx Last Taken Unknown] Allergy/AdvReac Type Severity Reaction Status Date / Time prednisone AdvReac Itching Verified 02/07/23 18:39 Social History household members: spouse Smoking Status: Current some day smoker tobacco type: cigarettes substance use type: does not use ROS ROS ED Constitutional Constitutional ED: Reports chills; Denies fever(s) Eyes Eyes: Denies change in vision or discharge from eye(s) ENT ENT ED: Denies discharge from eye(s), rhinorrhea or sore throat Cardiovascular Cardiovascular: Reports chest pain; Denies palpitations Respiratory/Chest Respiratory/Chest: Reports cough and dyspnea Gastrointestinal Gastrointestinal: Denies abdominal pain, nausea or vomiting Genitourinary Genitourinary ED: Denies dysuria Musculoskeletal Musculoskeletal: Reports back pain; Denies extremity pain Integumentary Denies Abrasions or rash Neurologic Neurologic: Denies headache(s) or weakness Psychiatric Psychiatric: Denies anxiety or depression Allergic/Immunologic Allergic/Immunologic ED: Denies lip swelling or urticaria EXAM Physical Exam Const Vital Signs: 02/07/23 18:39 02/07/23 18:46 02/07/23 18:46 Temperature 97.6 F L Temperature Source Temporal Pulse Rate 56 L 52 L Respiratory Rate 21 H 13 Respiratory Effort Short of Breath Respiratory Depth Normal Respiratory Pattern Normal Blood Pressure 161/83 H 176/100 H Blood Pressure Mean 109 125 Pulse Ox 99 98 Oxygen Delivery Method Room Air Room Air Room Air 02/07/23 19:04 Temperature Temperature Source Pulse Rate 55 L Respiratory Rate 16 Respiratory Effort Respiratory Depth Respiratory Pattern Normal Blood Pressure Blood Pressure Mean Pulse Ox Oxygen Delivery Method Positive well nourished and well developed General Appearance ED: well developed HEENT Reports normocephalic and head/scalp atraumatic Eyes PERRL and EOMs intact bilaterally Neck supple Chest Wall inspection of chest normal and palpation of chest normal Resp normal respiratory effort Resp Narrative: Diminished breath sounds bilateral bases. Cardio regular rhythm Rate: bradycardia GI normal to inspection, nondistended, normoactive bowel sounds Palpation: soft Extremity normal to inspection Neuro oriented x3 and no sensory deficits noted Sensorium / Orientation: alert Motor Exam: strength 5/5 throughout Psych mental status grossly normal Skin no rashes or lesions noted MDM MDM MDM Narrative Medical decision making narrative: Patient placed on monitoring manager. EKG obtained to evaluate for cardiac arrhythmia/ischemia. Chest x-ray obtained to evaluate for acute lung pathology, cardiac size, or mediastinal abnormality. Labwork obtained to evaluate for leukocytosis, anemia, and electrolyte derangement. Patient given a DuoNeb treatment. Lab Data Attestation: I reviewed the patient's lab results. Labs: Laboratory Results - last 24 hr 02/07/23 18:50 WBC 7.5 RBC 4.51 L Hgb 13.3 Hct 40.6 MCV 90.0 MCH 29.5 MCHC 32.8 RDW Std Deviation 44.5 H RDW Coeff of Celeste 13.6 Plt Count 193 MPV 9.8 Immature Gran % (Auto) 0.300 Neut % (Auto) 49.5 Lymph % (Auto) 34.0 [place] % (Auto) 11.0 H Eos % (Auto) 4.1 Baso % (Auto) 1.1 H Absolute Neuts (auto) 3.7 Absolute Lymphs (auto) 2.56 Nucleated RBC % 0 D-Dimer Quant (PE/DVT) 3.36 H* Sodium 138 Potassium 3.5 Chloride 105 Carbon Dioxide 27.0 Anion Gap 6 BUN 15 Creatinine 1.07 Estim Creat Clear Calc 68.36 Est GFR (MDRD) Af Amer 90 Est GFR (MDRD) Non-Af 74 BUN/Creatinine Ratio 14.0 Glucose 121 H Calcium 9.4 Troponin I High Sens 10 B-Natriuretic Peptide 36.8 Radiography Chest X-Ray - ED: 1 View, Read by ED Physician, Chronic Changes and No Infiltrates Diagnostic Testing: Clinical Impression(s) from Imaging Studies Chest X-Ray 02/07/23 19:28 IMPRESSION: No radiographic evidence of acute cardiopulmonary disease. Electronically Signed: Vasu Ferguson DO at 19:51 EDT Reading Location ID and State: [facility] / [place] Tel [phone], Service support , Chest CTA 02/07/23 19:45 IMPRESSION: No demonstrated pulmonary embolism or arterial dissection. Hyperaeration with chronic lung changes. Electronically Signed: Vasu Ferguson DO at 20:42 EDT , EKG Initial EKG: Attestation: I personally reviewed and interpreted this EKG as follows: Interpretation: Sinus Bradycardia (Sinus bradycardia 51 bpm. No acute ischemia.) Treatment and Re-Evaluation :: CBC is unremarkable. Chemistry studies normal. Troponin is normal at 10 and BNP is 36. D-dimer is 3.36. Patient admits that he has not been strictly compliant with his Eliquis. In light of this a CTA of the chest is obtained and reveals no evidence of PE. EKG is sinus bradycardia with no ischemia. On repeat evaluation patient does report that he feels improved after the breathing treatment. He has an albuterol inhaler that was recently filled. He is unable to tolerate p.o. prednisone. He will be given a course of Zithromax. Return instructions are given. Discharge Plan Triage Chief Complaint: Shortness of Breath ED Provider: Mary Carias Dx/Rx/DC Orders Clinical Impression: COPD exacerbation Instructions: ED COPD Flare Prescriptions: New azithromycin [Zithromax] 250 mg tablet 250 mg PO DAILY 4 Days Qty: 4 0RF Rx Instructions: start on day 2 of therapy dextromethorphan HBr 15 mg/5 mL syrup 15 mg PO Q8H PRN (Reason: cough) Qty: 118 0RF No Action amitriptyline 10 MG tablet 25 mg PO QHS Patient Comments: mood lisinopril 5 MG tablet 10 mg PO DAILY Patient Comments: blood pressure Lovastatin [Mevacor] 40 MG tablet 40 mg PO QHS Patient Comments: cholesterol Stool Softener 50 MG capsule 50 mg PO DAILY Patient Comments: stool softener levothyroxine 150 MCG tablet 150 mcg PO DAILY Patient Comments: thyroid apixaban 5 MG tablet 5 mg PO DAILY Patient Comments: TAKE 1 TABLET TWICE DAILY gabapentin 300 MG capsule 300 mg PO Q6H pramoxine [Proctofoam] 1 % foam 1 applic FL TID PRN (Reason: rectal discomfort) Qty: 15 0RF amoxicillin-pot clavulanate 875-125 mg tablet 1 tab PO BID Qty: 20 0RF oxycodone-acetaminophen [Percocet] 5-325 mg tablet 1 tab PO Q8H PRN (Reason: pain) 3 Days Qty: 10 0RF methocarbamol 500 mg tablet 500 mg PO Q8H Qty: 14 0RF prednisone 50 mg tablet 50 mg PO DAILY 5 Days Qty: 5 0RF Primary Care Provider: Levon Corral Referrals: Levon Corral MD [Primary Care Provider] - 1 Week if not improving
[2023-02-07 19:04] VITALS: PULSE 55; RESP 16
[2023-02-07] MEDS: Ipratropium/Albuterol Sulfate 3 ML AMPUL.NEB INHALATION (19:04)
[2023-02-07 19:05] LABS: Absolute Lymphocyte Count 2.56 X10^3/uL (0.83-4.51); Absolute Neutrophil Count 3.7 X10^3/uL (2.0-7.7); Basophil# 0.08 X10^3/uL; Basophil% 1.1 % (0-1); Eosinophil# 0.31 X10^3/uL; Eosinophils% 4.1 % (0-5); Hematocrit 40.6 % (40-54); Hemoglobin 13.3 g/dL (13.0-16.5); Lymphocyte # 2.56 X10^3/ul (0.83-4.51); Mean Corp Hgb Conc 32.8 g/dL (32-36); Mean Corpuscular Hgb 29.5 pg (27.0-32.0); Mean Platelet Vol. 9.8 fl (6.2-12.0); Monocyte# 0.83 X10^3/uL; NRBC Flagged by Analyzer 0 % (0-5); Neutrophil # 3.72 X10^3/uL (2.7-7.7); Neutrophil % 49.5 % (47-70); Platelet Count 193 K/mm3 (150-450); RBC Distribution Width CV 13.6 % (11.6-14.6); RBC Distribution Width SD 44.5 fl (35.1-43.9); Red Blood Count 4.51 M/mm3 (4.6-6.2); White Blood Count 7.5 K/mm3 (4.4-11.0)
[2023-02-07 19:25] LABS: Anion Gap 6 (5-15); BUN 15 mg/dL (7-18); Calcium,Total 9.4 mg/dL (8.5-10.1); Chloride 105 mmol/L (98-107); Creatinine, Serum 1.07 mg/dL (0.70-1.30); EST Glomerular Filtration Rate 74 mL/min (>60); Est Glom Filt Rate - Afr Amer 90 mL/min (>60); Estimated Creatinine Clearance 68.36 ml/min; Glucose 121 mg/dL (74-106); Potassium 3.5 mmol/L (3.5-5.1); Sodium Level 138 mmol/L (136-145); Troponin-I HS 10 pg/mL (3.0-78.0)
[2023-02-07 19:27] LABS: BNP,B-Type NATRIURETIC PEPTIDE 36.8 pg/mL (0-100)
--- NOTE | 2023-02-07 19:28 | RAD_ITS ---
INDICATION: sob EXAMINATION/TECHNIQUE: X-RAY - XR Chest 1 View COMPARISON: October 04, 2022 FINDINGS: LINES/DEVICES: None. LUNGS: No consolidation, edema or effusion. There is a large right apical bleb similar to previous study. No pneumothorax. MEDIASTINUM AND CARDIOVASCULAR STRUCTURES: Cardiac silhouette not enlarged. Central airways and mediastinal contour are unremarkable. BONES AND SOFT TISSUES: Degenerative vertebral changes. RAD/Chest 1 View (Portable) IMPRESSION: No radiographic evidence of acute cardiopulmonary disease. Electronically Signed: Vasu Ferguson DO at 19:51 EDT ,
[2023-02-07 19:38] LABS: D-Dimer Quantitative (DVT/PE) 3.36 FEU/ug/m (0.27-0.49)
--- NOTE | 2023-02-07 19:45 | CT_ITS ---
STUDY: CTA CHEST REASON FOR EXAM: Male, 62 years old. Pulmonary embolism RADIATION DOSAGE (If Supplied By Facility): CTDIvol = ( 15.29 ) mGy, DLP = ( 521.02 ) mGycm TECHNIQUE: The examination was performed with the intravenous administration of IV 100mL Isovue-370. Post-processing of the angiographic images was performed, with multiplanar reformation and 3D reconstruction. Individualized dose optimization techniques were used for this CT. COMPARISON: May 01, 2021 FINDINGS: Normal enhancement of the main pulmonary artery and right and left pulmonary arteries. Normal enhancement of the bilateral peripheral pulmonary arteries. There is no demonstrated pulmonary embolism. Normal thoracic aorta and visualized great vessels. There is no demonstrated aortic dissection. Normal heart and pericardium. Normal mediastinum. Normal hilar regions. Normal visualized trachea and bronchi. The lungs are hyperaerated with emphysematous changes. Large bleb in the right apex. Bilateral interstitial thickening and fibrotic changes. Normal pleura. Normal chest wall structures. Degenerative vertebral changes. Normal visualized upper abdomen. CT/CTA Chest W/WO Contrast IMPRESSION: No demonstrated pulmonary embolism or arterial dissection. Hyperaeration with chronic lung changes. Electronically Signed: Vasu Ferguson DO at 20:42 EDT ,
[2023-02-07] MEDS: Azithromycin 250 MG Tablet 500 MG PO (21:05)
[2023-02-07 21:06] VITALS: BP 160/92; PULSE 52; RESP 12; O2SAT 97
== END 2023-02-07 21:18 | disposition home or self-care (01) ==
PROVIDERS: Emergency Provider Emergency Medicine; PCP Internal Medicine; Visit Provider Emergency Medicine
DX: J44.1 Chronic obstructive pulmonary disease with (acute) exacerbation (principal); I48.92 Unspecified atrial flutter; F17.210 Nicotine dependence, cigarettes, uncomplicated; I10 Essential (primary) hypertension; E03.9 Hypothyroidism, unspecified; Z79.01 Long term (current) use of anticoagulants
CPT/HCPCS: 71045; 71275; 80048; 83880; 84484; 85025; 85379; 93005; 94640; 99284; Q9967

== ENCOUNTER 2023-02-24 18:21 | Emergency (ER) | payer MEDICARE, MEDICAID, SELFPAY ==
[2023-02-24 18:22] VITALS: BP 138/89; PULSE 59; RESP 11; TEMP 36.4; O2SAT 98; BMI 34.0
--- NOTE | 2023-02-24 18:24 | ED.VIS.DYS ---
HPI History of Present Illness Chief Complaint: Shortness of Breath Narrative Narrative: Patient presents with dyspnea after mowing the lawn for about 2 hours. He was pushing a lawn more. He had no chest pain or chest discomfort at that time. EMS was called, patient had a normal pulse ox and was brought in by EMS. He is now asymptomatic. He is denying any kind of back pain or tearing sensation. There is no pleuritic component. No lower extremity edema or calf pain. No recent travel history. [facility] Medical History Atrial flutter Back pain Hypertension Hypothyroidism Home Medications amitriptyline 10 mg tablet 25 mg PO QHS 06/23/13 [History Last Taken 10/30/16] Lovastatin [Mevacor] 40 mg PO QHS 11/18/14 [History Last Taken 10/30/16] lisinopril 5 mg tablet 10 mg PO DAILY 11/18/14 [History Last Taken 10/31/16] docusate sodium 50 mg capsule (Stool Softener) 50 mg PO DAILY 07/10/16 [History Last Taken Unknown] levothyroxine 150 mcg tablet 150 mcg PO DAILY 11/01/16 [History Last Taken Unknown] apixaban 5 mg tablet 5 mg PO DAILY 07/12/19 [History Last Taken Unknown] gabapentin 300 mg capsule 300 mg PO Q6H 10/08/19 [History Last Taken Unknown] amoxicillin 875 mg-potassium clavulanate 125 mg tablet 1 tab PO BID #20 tabs 10/21/21 [Rx Last Taken Unknown] pramoxine 1 % topical foam (Proctofoam) 1 applic MD TID PRN rectal discomfort #15 grams 10/21/21 [Rx Last Taken Unknown] methocarbamol 500 mg tablet 500 mg PO Q8H #14 tabs 09/27/22 [Rx Last Taken Unknown] oxycodone-acetaminophen 5 mg-325 mg tablet (Percocet) 1 tab PO Q8H PRN pain 3 days #10 tabs 09/27/22 [Rx Last Taken Unknown] prednisone 50 mg tablet 50 mg PO DAILY 5 days #5 tabs 10/04/22 [Rx Last Taken Unknown] azithromycin 250 mg tablet (Zithromax) 250 mg PO DAILY 4 days #4 tabs 02/07/23 [Rx Last Taken Unknown] dextromethorphan HBr 15 mg/5 mL oral syrup 15 mg (5 mL) PO Q8H PRN cough #118 mL 02/07/23 [Rx Last Taken Unknown] Allergy/AdvReac Type Severity Reaction Status Date / Time prednisone AdvReac Itching Verified 02/07/23 18:39 Social History household members: spouse Smoking Status: Current some day smoker tobacco type: cigarettes substance use type: does not use ROS ROS ED ROS Narrative Past medical history: Reviewed, includes hypercholesterolemia, COPD, history of A-fib and a flutter Medications: Reviewed Social history: Noncontributory Review of systems: All systems negative except as indicated General: No fever Eyes: No visual changes ENT: No upper airway congestion, normal voice Neck: No neck pain Cardiovascular: No chest pain Respiratory: Dyspnea as in HPI Gastrointestinal: No abdominal pain, nausea vomiting or diarrhea Genitourinary: No dysuria Musculoskeletal: Denies myalgias no difficulty with ambulation Skin: No rash Neurological: No memory loss, confusion or any focal weakness EXAM Physical Exam Narrative Exam Narrative: Physical exam General: Patient appears relatively comfortable Head: Normocephalic, Atraumatic Eyes: Conjunctiva not pale ENT: Moist mucous membranes Neck: Supple, Nontender, No lymphadenopathy Cardiovascular: Regular rate, Regular rhythm Respiratory: Some coarse breath sounds and scant wheezing. Abdomen: Soft, Nontender, Nondistended Back: Nontender, Normal Inspection. Negative for: CVA tenderness Extremities: Nontender, No edema Skin: Normal color, No rash Neurological: Alert, Normal Strength, Normal Sensation Const Vital Signs: 02/24/23 18:22 02/24/23 18:27 02/24/23 18:37 Temperature 97.6 F L Temperature Source Temporal Pulse Rate 59 L Respiratory Rate 11 L Respiratory Effort Normal Non-Labored Respiratory Depth Normal Respiratory Pattern Normal Blood Pressure 138/89 H Blood Pressure Mean 105 Pulse Ox 98 Oxygen Delivery Method Room Air Room Air Room Air MDM MDM MDM Narrative Medical decision making narrative: EKG: Sinus rhythm with a rate of 51. Normal MD and QTc interval. No ischemic changes Interpreted by emergency doctor Diagnostics: Telemetry: Sinus rhythm on the monitor with rate in the 50s with occasional PACs. Chest x-ray: Discharge Plan Triage Chief Complaint: Shortness of Breath ED Provider: Lauri Clinton Dx/Rx/DC Orders Prescriptions: No Action amitriptyline 10 MG tablet 25 mg PO QHS Patient Comments: mood lisinopril 5 MG tablet 10 mg PO DAILY Patient Comments: blood pressure Lovastatin [Mevacor] 40 MG tablet 40 mg PO QHS Patient Comments: cholesterol Stool Softener 50 MG capsule 50 mg PO DAILY Patient Comments: stool softener levothyroxine 150 MCG tablet 150 mcg PO DAILY Patient Comments: thyroid apixaban 5 MG tablet 5 mg PO DAILY Patient Comments: TAKE 1 TABLET TWICE DAILY gabapentin 300 MG capsule 300 mg PO Q6H pramoxine [Proctofoam] 1 % foam 1 applic MD TID PRN (Reason: rectal discomfort) Qty: 15 0RF amoxicillin-pot clavulanate 875-125 mg tablet 1 tab PO BID Qty: 20 0RF oxycodone-acetaminophen [Percocet] 5-325 mg tablet 1 tab PO Q8H PRN (Reason: pain) 3 Days Qty: 10 0RF methocarbamol 500 mg tablet 500 mg PO Q8H Qty: 14 0RF prednisone 50 mg tablet 50 mg PO DAILY 5 Days Qty: 5 0RF azithromycin [Zithromax] 250 mg tablet 250 mg PO DAILY 4 Days Qty: 4 0RF Rx Instructions: start on day 2 of therapy dextromethorphan HBr 15 mg/5 mL syrup 15 mg PO Q8H PRN (Reason: cough) Qty: 118 0RF Primary Care Provider: Levon Corral Referrals: Levon Corral MD [Primary Care Provider] -
[2023-02-24 18:27] VITALS: O2SAT 99
[2023-02-24] MEDS: Albuterol 2.5 MG/3 ML VIAL.NEB. INHALATION ×2 (18:40)
[2023-02-24 18:42] VITALS: PULSE 52; RESP 10
[2023-02-24 18:48] LABS: Absolute Lymphocyte Count 1.88 X10^3/uL (0.83-4.51); Absolute Neutrophil Count 5.3 X10^3/uL (2.0-7.7); Basophil# 0.09 X10^3/uL; Basophil% 1.1 % (0-1); Eosinophil# 0.27 X10^3/uL; Eosinophils% 3.2 % (0-5); Hematocrit 45.2 % (40-54); Hemoglobin 14.7 g/dL (13.0-16.5); Lymphocyte # 1.88 X10^3/ul (0.83-4.51); Lymphocyte % 22.5 % (19-41); Mean Corp Hgb Conc 32.5 g/dL (32-36); Mean Corpuscular Hgb 29.6 pg (27.0-32.0); Mean Corpuscular Volume 91.1 fL (80-94); Mean Platelet Vol. 10.1 fl (6.2-12.0); Monocyte# 0.81 X10^3/uL; Monocyte% 9.7 % (0-10); NRBC Flagged by Analyzer 0 % (0-5); Neutrophil # 5.29 X10^3/uL (2.7-7.7); Neutrophil % 63.3 % (47-70); Platelet Count 186 K/mm3 (150-450); RBC Distribution Width CV 13.9 % (11.6-14.6); RBC Distribution Width SD 46.7 fl (35.1-43.9); Red Blood Count 4.96 M/mm3 (4.6-6.2); White Blood Count 8.4 K/mm3 (4.4-11.0)
--- NOTE | 2023-02-24 18:55 | RAD_ITS ---
INDICATION: chest pain EXAMINATION/TECHNIQUE: X-RAY - XR Chest 1 View COMPARISON: February 07, 2023. FINDINGS: Cardiac silhouette and mediastinal contours are stable. No focal left lung airspace consolidation. Linear left basilar probable scarring stable compared to prior study. Lucency right upper lung unchanged, probably bulla. Right lung otherwise stable. RAD/Chest 1 View (Portable) IMPRESSION: No significant interval change compared to prior study. Electronically Signed: Demetris Rainey MD at 19:37 EDT ,
[2023-02-24] MEDS: Aspirin 81 MG TAB.CHEW 324 MG PO (18:56)
[2023-02-24 19:10] LABS: Anion Gap 4 (5-15); BUN 21 mg/dL (7-18); BUN/Creat Ratio 13.5 RATIO (10-20); Calcium,Total 9.5 mg/dL (8.5-10.1); Chloride 107 mmol/L (98-107); Creatinine, Serum 1.56 mg/dL (0.70-1.30); EST Glomerular Filtration Rate 48 mL/min (>60); Est Glom Filt Rate - Afr Amer 58 mL/min (>60); Estimated Creatinine Clearance 46.89 ml/min; Glucose 103 mg/dL (74-106); Potassium 4.2 mmol/L (3.5-5.1); Sodium Level 137 mmol/L (136-145); Troponin-I HS (w/2H Reflex) 20 pg/mL (3.0-78.0)
[2023-02-24 19:19] LABS: BNP,B-Type NATRIURETIC PEPTIDE 28.9 pg/mL (0-100)
[2023-02-24 20:21] VITALS: BP 116/60; PULSE 52; RESP 20; O2SAT 95
[2023-02-24] MEDS: 0.9% Normal Saline 1,000 ML 999 ML IV (20:27)
[2023-02-24 20:45] LABS: Reflex Troponin-HS? (from REC) Y
[2023-02-24 21:11] LABS: Troponin-I HS 15 pg/mL (3.0-78.0)
[2023-02-24 22:27] VITALS: BP 156/94; PULSE 53; RESP 12; O2SAT 97
== END 2023-02-24 22:31 | disposition home or self-care (01) ==
PROVIDERS: Emergency Provider Emergency Medicine; PCP Internal Medicine; Visit Provider Emergency Medicine
DX: R06.02 Shortness of breath (principal); J44.9 Chronic obstructive pulmonary disease, unspecified; I48.91 Unspecified atrial fibrillation; E78.00 Pure hypercholesterolemia, unspecified; F17.210 Nicotine dependence, cigarettes, uncomplicated; I10 Essential (primary) hypertension; E03.9 Hypothyroidism, unspecified; Z79.899 Other long term (current) drug therapy; Z79.01 Long term (current) use of anticoagulants
CPT/HCPCS: 71045; 80048; 83880; 84484; 85025; 93005; 94640; 96360; 96361; 99284; J7030; A4216

== ENCOUNTER 2023-05-20 13:29 | Emergency (ER) | payer MEDICARE, MEDICAID, SELFPAY ==
[2023-05-20 13:32] VITALS: BP 131/68; PULSE 57; RESP 18; TEMP 36.1; O2SAT 95; BMI 33.3
[2023-05-20 14:19] LABS: Absolute Lymphocyte Count 2.16 X10^3/uL (0.83-4.51); Absolute Neutrophil Count 6.5 X10^3/uL (2.0-7.7); Basophil# 0.07 X10^3/uL; Basophil% 0.7 % (0-1); Eosinophil# 0.28 X10^3/uL; Eosinophils% 2.8 % (0-5); Hematocrit 43.4 % (40-54); Lymphocyte # 2.16 X10^3/ul (0.83-4.51); Lymphocyte % 21.3 % (19-41); Mean Corp Hgb Conc 32.3 g/dL (32-36); Mean Corpuscular Hgb 28.5 pg (27.0-32.0); Mean Corpuscular Volume 88.2 fL (80-94); Mean Platelet Vol. 10.5 fl (6.2-12.0); Monocyte# 1.07 X10^3/uL; Monocyte% 10.6 % (0-10); NRBC Flagged by Analyzer 0 % (0-5); Neutrophil # 6.51 X10^3/uL (2.7-7.7); Neutrophil % 64.2 % (47-70); Platelet Count 209 K/mm3 (150-450); RBC Distribution Width CV 13.9 % (11.6-14.6); RBC Distribution Width SD 44.9 fl (35.1-43.9); Red Blood Count 4.92 M/mm3 (4.6-6.2); White Blood Count 10.1 K/mm3 (4.4-11.0)
--- NOTE | 2023-05-20 14:24 | CT_ITS ---
STUDY: CT ABDOMEN AND PELVIS WITH CONTRAST REASON FOR EXAM: Male, 62 years old. LLQ pain RADIATION DOSAGE (If Supplied By Facility): CTDIvol = ( 20.68 ) mGy, DLP = ( 1066.54 ) mGycm TECHNIQUE: Transaxial images were obtained from the dome of the diaphragm to the symphysis pubis without oral contrast. 100 CC ISOVUE 300 was administered. Sagittal and coronal images were reconstructed. Individualized dose optimization techniques were used for this CT. COMPARISON: 09/27/2022. FINDINGS: The visualized lung bases are unremarkable. The visualized portions of the heart are within normal limits. Normal liver. There is non-visualization of the gallbladder, which may be secondary to either contraction or a prior cholecystectomy. Normal spleen. Normal pancreas. Normal bilateral adrenal glands. Normal right kidney. Normal left kidney. Evaluation of the GI tract is limited by absence of oral contrast. Cannot exclude stomach wall thickening. No dilated loops of bowel or evidence for obstruction. Cannot exclude segmental thickening of the grace of the small or large bowel. Cannot exclude enteritis or colitis. Moderate diffuse fecal retention. Appendix within normal limits. Stable appearance of fusiform aortic aneurysm and fusiform common iliac artery aneurysms, previously repaired with stent graft which are patent and stable in appearance. Normal inferior vena cava. Normal retroperitoneum. Normal urinary bladder. There is enlargement of the prostate gland. Normal abdominal wall. There are diffuse degenerative changes of the visualized lumbar spine. CT/Abdomen/Pelvis W IV Cont ONLY IMPRESSION: No definite acute or significant abnormality seen. Electronically Signed: Elliott Sol MD at 17:02 EST ,
--- NOTE | 2023-05-20 14:25 | ED.VIS.GI ---
HPI HPI - GI History of Present Illness Chief Complaint: Abd Pain Narrative Narrative: 62 old male who denies significant past medical history presents via EMS for lower abdominal pain that has had for the last 2 hours. He states he felt like he was constipated, and had a large bowel movement and what he thought was constipation approximately 2 hours ago. He denies any fevers or chills, no nausea or vomiting, but had extreme pain in the lower portion of his abdomen. He states he is still sore in that area. He had near syncopal episode. His pain is improved significantly from what it was. He may have had diarrhea at the time, but he denies any bloody bowel movements. [facility] Medical History Atrial flutter Back pain Hypertension Hypothyroidism Home Medications amitriptyline 10 mg tablet 25 mg PO QHS 06/23/13 [History Last Taken 10/30/16] Lovastatin [Mevacor] 40 mg PO QHS 11/18/14 [History Last Taken 10/30/16] lisinopril 5 mg tablet 10 mg PO DAILY 11/18/14 [History Last Taken 10/31/16] docusate sodium 50 mg capsule (Stool Softener) 50 mg PO DAILY 07/10/16 [History Last Taken Unknown] levothyroxine 150 mcg tablet 150 mcg PO DAILY 11/01/16 [History Last Taken Unknown] apixaban 5 mg tablet 5 mg PO DAILY 07/12/19 [History Last Taken Unknown] gabapentin 300 mg capsule 300 mg PO Q6H 10/08/19 [History Last Taken Unknown] amoxicillin 875 mg-potassium clavulanate 125 mg tablet 1 tab PO BID #20 tabs 10/21/21 [Rx Last Taken Unknown] pramoxine 1 % topical foam (Proctofoam) 1 applic PA TID PRN rectal discomfort #15 grams 10/21/21 [Rx Last Taken Unknown] methocarbamol 500 mg tablet 500 mg PO Q8H #14 tabs 09/27/22 [Rx Last Taken Unknown] oxycodone-acetaminophen 5 mg-325 mg tablet (Percocet) 1 tab PO Q8H PRN pain 3 days #10 tabs 09/27/22 [Rx Last Taken Unknown] prednisone 50 mg tablet 50 mg PO DAILY 5 days #5 tabs 10/04/22 [Rx Last Taken Unknown] azithromycin 250 mg tablet (Zithromax) 250 mg PO DAILY 4 days #4 tabs 02/07/23 [Rx Last Taken Unknown] dextromethorphan HBr 15 mg/5 mL oral syrup 15 mg (5 mL) PO Q8H PRN cough #118 mL 02/07/23 [Rx Last Taken Unknown] Allergy/AdvReac Type Severity Reaction Status Date / Time No Known Allergies Allergy Verified 05/20/23 14:27 Social History household members: spouse Smoking Status: Current some day smoker tobacco type: cigarettes substance use type: does not use ROS ROS ED ROS Narrative Constitutional: No fever, no chills. HEENT: No sore throat. No neck pain. No loss of vision. No rhinorrhea. Cardiovascular: No chest pain. No palpitations. No pedal edema. Respiratory: No cough, no shortness of breath. Abdominal: Bilateral lower quadrant abdominal pain. No nausea. No vomiting. Genitourinary: No dysuria. No hematuria. Musculoskeletal: No myalgias. No arthralgias. Neurologic: No headaches. No dizziness. Positive near syncope. Skin: No rash. No change in color. Psychiatric: No depression. No anxiety. EXAM Physical Exam Narrative Exam Narrative: Afebrile. Vital signs noted. HEENT: Normocephalic. Atraumatic. PERRL, EOMI. Neck soft and supple. No point tenderness or step off. Cardiovascular: Regular rate and rhythm. No murmurs, rubs, or gallops appreciated. Respiratory: No tachypnea. Lungs clear to auscultation bilaterally. Gastrointestinal: Abdomen soft, mild tenderness left lower quadrant, with normoactive bowel sounds. No rebound or guarding. Neurological: Awake. Alert. Nonfocal, nonlateralizing. Skin: No rash. Normal color. No pallor. Musculoskeletal: No pedal edema. Full range of motion extremities. Const Vital Signs: 05/20/23 13:32 05/20/23 15:29 05/20/23 17:00 Temperature 96.9 F L Temperature Source Temporal Pulse Rate 57 L 59 L 62 Respiratory Rate 18 16 18 Blood Pressure 131/68 H 130/78 H 134/80 H Blood Pressure Mean 89 95 98 Pulse Ox 95 96 97 Oxygen Delivery Method Room Air Room Air Room Air MDM MDM MDM Narrative Medical decision making narrative: I reviewed the patient's prior records and laboratory work. In his problem list he does have AAA listed. In the differential diagnosis is diverticulitis versus AAA rupture versus ureterolithiasis versus gastroenteritis. Nursing protocol laboratories were obtained. I have lower suspicion for AAA rupture given review of his vital signs which are within normal limits and his physical examination. I do feel CT imaging is indicated. I have lower suspicion for ureterolithiasis and gastroenteritis as his history and physical are not supportive of this. He was bolused normal saline 1 L intravenously. I reviewed his laboratory work and he has a normal white count of 10.1 with hemoglobin normal at 14.0, platelet count normal at 209, review of CMP shows sodium normal at 141, potassium slightly low at 3.3 which I think is nonspecific, chloride normal at 107, BUN of 21 with creatinine of 1.01, glucose is appropriately elevated at 107 with a normal anion gap of 6. ALT and AST are normal. Urinalysis is negative for infection. I do not feel antibiotics are indicated. I reviewed the CT report of the abdomen and pelvis which shows no evidence of an acute process. There is moderate amount of stool/fecal burden. Although appendix was visualized and there is no evidence of appendicitis, there was mention that they cannot rule out colitis or enteritis. I do not feel antibiotics are indicated. Repeat examination shows his abdomen to remain soft without rebound or guarding. Additionally, he does not have a white count or fever so I am not concerned about a colitis that requires antibiotic treatment. Given his moderate stool burden, he was told to take an [id number] stool softener and MiraLAX as a gentle laxative. He will follow-up with his primary care provider. I do not feel he requires admission at this time. He feels improved and his abdomen remains soft and nonsurgical. Return instructions to the emergency department were reviewed. Disposition is discharged home in stable condition. Patient is comfortable with the plan. History & Record Review Discussion w/independent historian: Patient Additional record(s) reviewed:: Prior ED visit Lab Data Attestation: I reviewed the patient's lab results. Labs: Laboratory Results - last 24 hr 05/20/23 05/20/23 05/20/23 14:09 14:44 16:45 WBC 10.1 RBC 4.92 Hgb 14.0 Hct 43.4 MCV 88.2 MCH 28.5 MCHC 32.3 RDW Std Deviation 44.9 H RDW Coeff of [place] 13.9 Plt Count 209 MPV 10.5 Immature Gran % (Auto) 0.400 Neut % (Auto) 64.2 Lymph % (Auto) 21.3 [place] % (Auto) 10.6 H Eos % (Auto) 2.8 Baso % (Auto) 0.7 Absolute Neuts (auto) 6.5 Absolute Lymphs (auto) 2.16 Nucleated RBC % 0 Sodium Cancelled 141 Potassium Cancelled 3.3 L Chloride Cancelled 107 Carbon Dioxide Cancelled 28.0 Anion Gap Cancelled 6 BUN Cancelled 21 H Creatinine Cancelled 1.01 Estim Creat Clear Calc Cancelled 69.99 Est GFR (MDRD) Af Amer Cancelled 96 Est GFR (MDRD) Non-Af Cancelled 79 BUN/Creatinine Ratio Cancelled 20.8 H Glucose Cancelled 107 H Calcium Cancelled 8.7 Total Bilirubin Cancelled 0.40 AST Cancelled 21 ALT Cancelled 23 Alkaline Phosphatase Cancelled 55 Total Protein Cancelled 6.8 Albumin Cancelled 3.0 L Globulin Cancelled 3.8 Albumin/Globulin Ratio Cancelled 0.8 L Urine Color Yellow Urine Clarity Clear Urine pH 7.0 Ur Specific [place] 1.005 Urine Protein Negative Urine Glucose (UA) Normal Urine Ketones Negative Urine Occult Blood Negative Urine Nitrite Negative Urine Bilirubin Negative Urine Urobilinogen Normal Ur Leukocyte Esterase 25 H Urine RBC 0 SEEN Urine WBC 0 SEEN Ur Squamous Epith Cells 0 SEEN Urine Bacteria 0 SEEN Urine Mucus 0 SEEN Radiography Diagnostic Testing: Clinical Impression(s) from Imaging Studies Abdomen/Pelvis CT 05/20/23 14:24 IMPRESSION: No definite acute or significant abnormality seen. Electronically Signed: Elliott Sol MD at 17:02 EST , Discharge Plan Triage Chief Complaint: Abd Pain Other Complaint: Diarrhea ED Provider: Vidal Messer Dx/Rx/DC Orders Clinical Impression: Abdominal pain, Constipation Instructions: ED Constipation (Adult), ED Abdominal Pain Unkn Cause Male... Prescriptions: No Action amitriptyline 10 MG tablet 25 mg PO QHS Patient Comments: mood lisinopril 5 MG tablet 10 mg PO DAILY Patient Comments: blood pressure Lovastatin [Mevacor] 40 MG tablet 40 mg PO QHS Patient Comments: cholesterol Stool Softener 50 MG capsule 50 mg PO DAILY Patient Comments: stool softener levothyroxine 150 MCG tablet 150 mcg PO DAILY Patient Comments: thyroid apixaban 5 MG tablet 5 mg PO DAILY Patient Comments: TAKE 1 TABLET TWICE DAILY gabapentin 300 MG capsule 300 mg PO Q6H pramoxine [Proctofoam] 1 % foam 1 applic PA TID PRN (Reason: rectal discomfort) Qty: 15 0RF amoxicillin-pot clavulanate 875-125 mg tablet 1 tab PO BID Qty: 20 0RF oxycodone-acetaminophen [Percocet] 5-325 mg tablet 1 tab PO Q8H PRN (Reason: pain) 3 Days Qty: 10 0RF methocarbamol 500 mg tablet 500 mg PO Q8H Qty: 14 0RF prednisone 50 mg tablet 50 mg PO DAILY 5 Days Qty: 5 0RF azithromycin [Zithromax] 250 mg tablet 250 mg PO DAILY 4 Days Qty: 4 0RF Rx Instructions: start on day 2 of therapy dextromethorphan HBr 15 mg/5 mL syrup 15 mg PO Q8H PRN (Reason: cough) Qty: 118 0RF Primary Care Provider: Levon Corral Referrals: Levon Corral MD [Primary Care Provider] - 1 Week if not improving Activity Restrictions/Additional Instructions: Start taking an [id number] stool softener and gentle laxative like MiraLAX. Return with fever, increased pain, new or worsening symptoms. Disposition Disposition: Home, Self Care
[2023-05-20] MEDS: 0.9% Normal Saline (1000mL) 1,000 ML 1000 ML IV (14:28)
[2023-05-20 15:10] LABS: ALB/GLOB Ratio 0.8 RATIO (0.9-2.4); AST(SGOT) 21 U/L (15-37); Alanine Aminotransfer ALT/SGPT 23 U/L (16-61); Alkaline Phosphatase 55 U/L (45-117); Anion Gap 6 (5-15); BUN 21 mg/dL (7-18); BUN/Creat Ratio 20.8 RATIO (10-20); Calcium,Total 8.7 mg/dL (8.5-10.1); Chloride 107 mmol/L (98-107); Creatinine, Serum 1.01 mg/dL (0.70-1.30); EST Glomerular Filtration Rate 79 mL/min (>60); Est Glom Filt Rate - Afr Amer 96 mL/min (>60); Estimated Creatinine Clearance 69.99 ml/min; Globulin 3.8 g/dL (2.2-4.2); Glucose 107 mg/dL (74-106); Potassium 3.3 mmol/L (3.5-5.1); Protein, Total 6.8 g/dL (6.4-8.2); Sodium Level 141 mmol/L (136-145)
[2023-05-20 15:29] VITALS: BP 130/78; PULSE 59; RESP 16; O2SAT 96
[2023-05-20] MEDS: Potassium Chloride Oral Tablet 20 MEQ 40 MEQ PO (16:40)
[2023-05-20 16:52] LABS: Bacteria 0 SEEN /hpf (None Seen); Mucous, Urine 0 SEEN /hpf (<or=2+); Red Blood Cells-Urine 0 SEEN /hpf (0-5); Squamous Epithelial Cells - UA 0 SEEN /hpf (0-5); White Blood Cells 0 SEEN /hpf (0-5)
[2023-05-20 17:00] VITALS: BP 134/80; PULSE 62; RESP 18; O2SAT 97
[2023-05-20 17:16] LABS: Color, Urine Yellow (Yellow); Glucose, Dipstick Normal (Normal); Ketone-Dipstick Negative (Negative); Leukocyte Esterase-Dipstick 25 /ul (Negative); Nitrite-Dipstick Negative (Negative); Occult Blood-Urine Negative /ul (Negative); Protein-Dipstick Negative (Negative); Specific Gravity, Urine 1.005 (1.002-1.030); Urine Bilirubin Dipstick Negative (Negative); Urine Clarity Clear (Clear); Urine Urobilinogen Normal (Normal)
[2023-05-20 17:44] VITALS: BP 128/74; PULSE 62; RESP 18; TEMP 36.7; O2SAT 96
== END 2023-05-20 17:46 | disposition home or self-care (01) ==
PROVIDERS: Emergency Provider Emergency Medicine; PCP Internal Medicine; Visit Provider Emergency Medicine
DX: R10.9 Unspecified abdominal pain (principal); I48.92 Unspecified atrial flutter; K59.00 Constipation, unspecified; F17.210 Nicotine dependence, cigarettes, uncomplicated; I10 Essential (primary) hypertension; E03.9 Hypothyroidism, unspecified; Z79.899 Other long term (current) drug therapy; Z79.01 Long term (current) use of anticoagulants
CPT/HCPCS: 74177; 80053; 81001; 85025; 96360; 99284; J7030; Q9967; A4216

== ENCOUNTER 2023-08-06 07:37 | Emergency (ER) | payer MEDICARE, MEDICAID, SELFPAY ==
[2023-08-06 07:38] VITALS: BP 143/89; PULSE 54; RESP 14; TEMP 37.2; O2SAT 97; BMI 32.7
--- NOTE | 2023-08-06 08:00 | RAD_ITS ---
STUDY: X-RAY CHEST REASON FOR EXAM: Male, 62 years old. Chest pain and shortness of breath. TECHNIQUE: Single AP portable view of the chest. COMPARISON: Comparison is made with prior study February 24, 2023. FINDINGS: EKG electrodes are seen. There is hyperinflation of the lungs consistent with chronic obstructive lung disease (COPD). Stable bullous formation in the right lung apex with scarring. Stable mild increased markings at the lung bases suggestive of scarring. There is no demonstrated pleural abnormality. Normal size heart. Normal mediastinum and drea. Normal visualized pulmonary arteries. Normal visualized aortic arch and descending thoracic aorta. There are diffuse degenerative changes of the visualized thoracic spine. Normal visualized ribs, clavicles, and shoulders. There is no demonstrated abnormality of the visualized soft tissue structures of the upper abdomen. RAD/Chest 1 View (Portable) IMPRESSION: Hyperinflation and COPD with evidence of a bulla in the right lung apex. Mild scarring at the lung bases. Electronically Signed: Carlos Farias MD at 9:05 EST ,
[2023-08-06] MEDS: Aspirin 81 MG TAB.CHEW 324 MG PO (08:05)
[2023-08-06 08:10] LABS: Absolute Lymphocyte Count 2.71 X10^3/uL (0.83-4.51); Absolute Neutrophil Count 5.9 X10^3/uL (2.0-7.7); Eosinophil# 0.35 X10^3/uL; Eosinophils% 3.5 % (0-5); Hematocrit 41.8 % (40-54); Hemoglobin 13.5 g/dL (13.0-16.5); Lymphocyte # 2.71 X10^3/ul (0.83-4.51); Lymphocyte % 27.3 % (19-41); Mean Corp Hgb Conc 32.3 g/dL (32-36); Mean Corpuscular Hgb 28.5 pg (27.0-32.0); Mean Corpuscular Volume 88.4 fL (80-94); Mean Platelet Vol. 10.1 fl (6.2-12.0); Monocyte% 8.1 % (0-10); NRBC Flagged by Analyzer 0 % (0-5); Neutrophil # 5.93 X10^3/uL (2.7-7.7); Neutrophil % 59.8 % (47-70); Platelet Count 208 K/mm3 (150-450); RBC Distribution Width CV 14.6 % (11.6-14.6); RBC Distribution Width SD 47.3 fl (35.1-43.9); Red Blood Count 4.73 M/mm3 (4.6-6.2); White Blood Count 9.9 K/mm3 (4.4-11.0)
--- NOTE | 2023-08-06 08:23 | EDS_ITS ---
HPI History of Present Illness Chief Complaint: Chest Pain Narrative Narrative: 62-year-old male presenting with chest discomfort and lungs burning which started yesterday upon awakening about an a.m. Patient states today before he ate some [place] macaroni and cheese which he thinks was of Velveeta brand. He states he does not believe there is anything spicy or red sauce in it. Patient does feel like he has dyspepsia. He states that the burning he feels mostly in the back of his chest wall and down his back. No trauma. No diarrhea, constipation. No fevers or chills. No body aches. Patient denies nausea or vomiting. Patient does note that he has some bilateral lower flank burning as well which appears to seem contiguous with the back pain/burning he is experiencing. He has not been coughing or producing sputum. [facility] Medical History Atrial flutter Back pain Hypertension Hypothyroidism Home Medications amitriptyline 10 mg tablet 25 mg PO QHS 06/23/13 [History Last Taken 10/30/16] Lovastatin [Mevacor] 40 mg PO QHS 11/18/14 [History Last Taken 10/30/16] lisinopril 5 mg tablet 10 mg PO DAILY 11/18/14 [History Last Taken 10/31/16] docusate sodium 50 mg capsule (Stool Softener) 50 mg PO DAILY 07/10/16 [History Last Taken Unknown] levothyroxine 150 mcg tablet 150 mcg PO DAILY 11/01/16 [History Last Taken Unknown] apixaban 5 mg tablet 5 mg PO DAILY 07/12/19 [History Last Taken Unknown] gabapentin 300 mg capsule 300 mg PO Q6H 10/08/19 [History Last Taken Unknown] amoxicillin 875 mg-potassium clavulanate 125 mg tablet 1 tab PO BID #20 tabs 10/21/21 [Rx Last Taken Unknown] pramoxine 1 % topical foam (Proctofoam) 1 applic [place] TID PRN rectal discomfort #15 grams 10/21/21 [Rx Last Taken Unknown] methocarbamol 500 mg tablet 500 mg PO Q8H #14 tabs 09/27/22 [Rx Last Taken Unknown] oxycodone-acetaminophen 5 mg-325 mg tablet (Percocet) 1 tab PO Q8H PRN pain 3 days #10 tabs 09/27/22 [Rx Last Taken Unknown] prednisone 50 mg tablet 50 mg PO DAILY 5 days #5 tabs 10/04/22 [Rx Last Taken Unknown] azithromycin 250 mg tablet (Zithromax) 250 mg PO DAILY 4 days #4 tabs 02/07/23 [Rx Last Taken Unknown] dextromethorphan HBr 15 mg/5 mL oral syrup 15 mg (5 mL) PO Q8H PRN cough #118 mL 02/07/23 [Rx Last Taken Unknown] omeprazole 40 mg capsule,delayed release 40 mg PO DAILY #30 caps 08/06/23 [Rx Last Taken Unknown] sucralfate 100 mg/mL oral suspension (Carafate) 10 ml PO BID #200 mL 08/06/23 [Rx Last Taken Unknown] Allergy/AdvReac Type Severity Reaction Status Date / Time No Known Allergies Allergy Verified 05/20/23 14:27 Social History household members: spouse Smoking Status: Current some day smoker tobacco type: cigarettes substance use type: does not use ROS ROS ED Constitutional Constitutional ED: Denies chills, fever(s) or sweats Eyes Eyes: Denies blurry vision or change in vision ENT ENT ED: Denies ear pain or sore throat Cardiovascular Cardiovascular: Reports chest pain; Denies palpitations or racing heartbeat Respiratory/Chest Respiratory/Chest: Reports dyspnea and other Details: Lungs burning ; Denies cough or sputum Gastrointestinal Gastrointestinal: Reports other Details: Dyspepsia ; Denies abdominal pain, constipation, diarrhea, nausea or vomiting Genitourinary Genitourinary ED: Denies dysuria, hematuria or urinary frequency Musculoskeletal Musculoskeletal: Denies arthralgias, myalgias or neck pain Integumentary Denies abscess, Abrasions or rash Neurologic Neurologic: Denies headache(s), paresthesias or weakness Psychiatric Psychiatric: Denies anxiety, depression, suicidal ideation or suicidal thoughts Endocrine Endocrinology: Denies polydipsia or polyuria EXAM Physical Exam Const Vital Signs: 08/06/23 07:38 08/06/23 07:57 08/06/23 08:08 Temperature 99 F Temperature Source Temporal Pulse Rate 54 L Respiratory Rate 14 Respiratory Effort Normal Non-Labored Blood Pressure 143/89 H Blood Pressure Mean 107 Pulse Ox 97 Oxygen Delivery Method Room Air Room Air 08/06/23 08:36 08/06/23 10:33 08/06/23 10:58 Temperature Temperature Source Pulse Rate 47 L 45 L 82 Respiratory Rate 11 L 14 16 Respiratory Effort Blood Pressure 153/88 H 141/76 H Blood Pressure Mean 109 97 Pulse Ox 96 94 98 Oxygen Delivery Method Room Air Room Air Positive well nourished General Appearance ED: NAD; Negative for pallor HEENT Reports moist mucous membranes normocephalic and atraumatic Eyes PERRL and EOMs intact bilaterally Chest Wall inspection of chest normal and palpation of chest normal Resp clear to auscultation bilaterally Auscultation: Negative for rales, rhonchi or wheezes Cardio regular rhythm Rate: bradycardia GI normal to inspection, nondistended, normoactive bowel sounds Back/Spine no CVA tenderness Neuro oriented x3 and CN's II-XII intact bilaterally Sensorium / Orientation: awake and alert Motor Exam: strength 5/5 throughout Psych mental status grossly normal Skin no rashes or lesions noted General Skin Exam: Negative for jaundice or pallor MDM MDM MDM Narrative Medical decision making narrative: Patient presenting with dyspnea, chest discomfort which has been ongoing since yesterday morning. He is also experiencing dyspepsia. Differential includes ACS, pneumonia, COVID, influenza, RSV, GERD, gastritis, transaminitis, pancreatitis. CBC will be obtained to assess white blood cell count, hemoglobin, platelets. BMP to assess renal function and electrolytes. LFTs will be obtained to assess liver enzymes. Lipase to assess for pancreatitis. Chest x-ray to rule out pneumonia. COVID, influenza, RSV also obtained. Patient given GI cocktail to see if this will help his dyspepsia. On reevaluation the patient does states feeling a little bit improved. CBC and CMP unremarkable. Lipase within normal limits. High-sensitivity troponin is 17 and delta troponin is 16. There is no significant interval change. Chest x-ray my interpretation shows no acute process. The radiologist interprets this and agrees. Patient is on Eliquis so I will suspicion for PE. Given this patient will be discharged home. He is given prescription for omeprazole, Carafate. He is also counseled to avoid foods with upset his stomach. Return precautions discussed. Impression: 1. Chest pain 2. Dyspepsia Lab Data Attestation: I reviewed the patient's lab results. Labs: Laboratory Results - last 24 hr 08/06/23 08/06/23 07:55 10:10 WBC 9.9 RBC 4.73 Hgb 13.5 Hct 41.8 MCV 88.4 MCH 28.5 MCHC 32.3 RDW Std Deviation 47.3 H RDW Coeff of [place] 14.6 Plt Count 208 MPV 10.1 Immature Gran % (Auto) 0.300 Neut % (Auto) 59.8 Lymph % (Auto) 27.3 [place] % (Auto) 8.1 Eos % (Auto) 3.5 Baso % (Auto) 1.0 Absolute Neuts (auto) 5.9 Absolute Lymphs (auto) 2.71 Nucleated RBC % 0 Sodium 140 Potassium 3.7 Chloride 111 H Carbon Dioxide 26.0 Anion Gap 3 L BUN 20 H Creatinine 0.98 Estim Creat Clear Calc 90.20 Est GFR (MDRD) Af Amer 100 Est GFR (MDRD) Non-Af 82 BUN/Creatinine Ratio 20.5 H Glucose 111 H Calcium 9.4 Total Bilirubin 0.50 Direct Bilirubin 0.10 AST 16 ALT 22 Alkaline Phosphatase 59 Troponin I High Sens 17 16 Total Protein 7.1 Albumin 3.3 Globulin 3.8 Lipase 64 Radiography Diagnostic Testing: Clinical Impression(s) from Imaging Studies Chest X-Ray 08/06/23 08:00 IMPRESSION: Hyperinflation and COPD with evidence of a bulla in the right lung apex. Mild scarring at the lung bases. Electronically Signed: Carlos Farias MD at 9:05 EST , Discharge Plan Triage Chief Complaint: Chest Pain ED Provider: Bebeto Morales Dx/Rx/DC Orders Instructions: ED Chest Pain, Noncardiac, ED GERD (Adult) Prescriptions: New omeprazole 40 mg capsule,delayed release(DR/EC) 40 mg PO DAILY Qty: 30 0RF sucralfate [Carafate] 100 mg/mL suspension 10 ml PO BID Qty: 200 0RF No Action amitriptyline 10 MG tablet 25 mg PO QHS Patient Comments: mood lisinopril 5 MG tablet 10 mg PO DAILY Patient Comments: blood pressure Lovastatin [Mevacor] 40 MG tablet 40 mg PO QHS Patient Comments: cholesterol Stool Softener 50 MG capsule 50 mg PO DAILY Patient Comments: stool softener levothyroxine 150 MCG tablet 150 mcg PO DAILY Patient Comments: thyroid apixaban 5 MG tablet 5 mg PO DAILY Patient Comments: TAKE 1 TABLET TWICE DAILY gabapentin 300 MG capsule 300 mg PO Q6H pramoxine [Proctofoam] 1 % foam 1 applic [place] TID PRN (Reason: rectal discomfort) Qty: 15 0RF amoxicillin-pot clavulanate 875-125 mg tablet 1 tab PO BID Qty: 20 0RF oxycodone-acetaminophen [Percocet] 5-325 mg tablet 1 tab PO Q8H PRN (Reason: pain) 3 Days Qty: 10 0RF methocarbamol 500 mg tablet 500 mg PO Q8H Qty: 14 0RF prednisone 50 mg tablet 50 mg PO DAILY 5 Days Qty: 5 0RF azithromycin [Zithromax] 250 mg tablet 250 mg PO DAILY 4 Days Qty: 4 0RF Rx Instructions: start on day 2 of therapy dextromethorphan HBr 15 mg/5 mL syrup 15 mg PO Q8H PRN (Reason: cough) Qty: 118 0RF Primary Care Provider: Levon Corral Referrals: Levon Corral MD [Primary Care Provider] - Disposition Disposition: Home, Self Care Discharge Date/Time: 08/06/23 10:59
[2023-08-06 08:28] LABS: Anion Gap 3 (5-15); BUN 20 mg/dL (7-18); BUN/Creat Ratio 20.5 RATIO (10-20); Calcium,Total 9.4 mg/dL (8.5-10.1); Chloride 111 mmol/L (98-107); Creatinine, Serum 0.98 mg/dL (0.70-1.30); EST Glomerular Filtration Rate 82 mL/min (>60); Est Glom Filt Rate - Afr Amer 100 mL/min (>60); Glucose 111 mg/dL (74-106); Potassium 3.7 mmol/L (3.5-5.1); Sodium Level 140 mmol/L (136-145); Troponin-I HS (w/2H Reflex) 17 pg/mL (3.0-78.0)
--- OUTSIDE RECORDS SUMMARY | 2023-08-06 08:34 | XMS RPT_ITS | CCD ---
Author Name Unknown Address [address] [place] [address] Organization [facility] Care Team Providers Care Lobby Attendant Name Role Phone ADRIANO MONTES Unavailable Unavailable ADRIANO MONTES Unavailable Unavailable ADRIANO MONTES Unavailable Unavailable Levon Corral Unavailable Unavailable Ellis MARIE, Levon Lopez Primary Care Provider [phone] Ellis MARIE, Levon Lopez Primary Care Provider [phone] Tarah RN, Vic Unavailable [phone] Levon Corral MD Primary Care Provider [phone] Tarah RN, Vic Unavailable [phone] November RN, Corie Hendrickson Unavailable November RN, Corie Hendrickson Unavailable Tarah RN, Vic Unavailable [phone] LEVON CORRAL Primary Care Unavailable ARJUN POLANCO Referring Unavailable MELINA STILL Attending Unavaila LEVON Mancera Primary Care Unavailable CAROLINA TAPIA Referring Unavailable MARILEE BATRES Attending Unavailab MARILEE Hatch Referring Unavailab LEVON Mcgrath Primary Care Unavailable LEVON CORRAL Primary Care Unavailable PROVIDER, UNKNOWN Admitting Unavailable PROVIDER, UNKNOWN Attending Unavailable LEVON CORRAL Primary Care Unavailable ULISES FONTAINE Referring Unavailable LEVON CORRAL Primary Care Unavailable ARJUN POLANCO Referring Unavailable LEVON CORRAL Primary Care Unavailable LEVON CORRAL Attending Unavailable LEVON CORRAL Primary Care Unavailable LEVON CORRAL Referring Unavailable TG ALBRECHT Attending Unavailable CORRAL, FRANCISCO Primary Care Unavailable TG ALBRECHT Referring Unavailable CORRAL, FRANCISCO Primary Care Unavailable ULISES FONTAINE Attending Unavailable CORRAL, FRANCISCO Primary Care Unavailable MAGUI LOPEZ Referring Unavailable CORRAL, FRANCISCO Primary Care Unavailable CORRAL, FRANCISCO Primary Care Unavailable CORRAL, FRANCISCO Primary Care Unavailable CORRAL, FRANCISCO Attending Unavailable CORRAL, FRANCISCO Primary Care Unavailable FABIANO, NAZ M Attending Unavailable TG ALBRECHT Referring Unavailable CORRAL, FRANCISCO Primary Care Unavailable CAROLINA TAPIA Referring Unavailable CORRAL, FRANCISCO Primary Care Unavailable ARJUN POLANCO Attending Unavailable CORRAL, FRANCISCO Primary Care Unavailable ARJUN POLANCO Attending Unavailable CORRAL, FRANCISCO Primary Care Unavailable CAROLINA TAPIA Attending Unavailable CORRAL, FRANCISCO Primary Care Unavailable FABIANOKAMINI TOVAR Referring Unavailable TG ALBRECHT Referring Unavailable CORRAL, FRANCISCO Primary Care Unavailable TG ALBRECHT Attending Unavailable TG ALBRECHT Referring Unavailable CORRAL, FRANCISCO Primary Care Unavailable CORRAL, FRANCISCO Primary Care Unavailable ARNALDODAVID Referring Unavailable ARNALDO, JIMISH Attending Unavailable TG ALBRECHT Referring Unavailable CORRAL, FRANCISCO Primary Care Unavailable CORRAL, FRANCISCO Primary Care Unavailable ARJUN POLANCO Attending Unavailable CORRAL, FRANCISCO Primary Care Unavailable TG ALBRECHT Referring Unavailable CORRAL, FRANCISCO Primary Care Unavailable Allergies Allergy Classification Reported Allergen(s) Allergy Type Date of Onset Reaction(s) Facility (20 sources) predniSONE; Translations: [PREDNISONE] Drug Allergy 02-27-2011 Itching [facility] Medications Current Medications Medication Drug Class(es) Dates Sig (Normalized) Sig (Original) dexamethasone phosphate 1 mg/ml ophthalmic solution (1 source) Corticosteroid Start: 10-03-2021 End: 10-13-2021 take 5 drop(s) into the eye(s) twice daily dexAMETHasone 0.1 % ophthalmic solution 5 Drops twice daily for 10 days. Into both ears 5 mL 1 10/03/2021 10/13/2021 Active Completed/Discontinued Medications Medication Drug Class(es) Dates Sig (Normalized) Sig (Original) [id number] 200 actuat albuterol 0.09 mg/actuat metered dose inhaler (20 sources) beta2-Adrenergic Agonist Start: 04-10-2022 End: 06-20-2023 take 2 puff(s) by inhalation every four hours as needed albuterol HFA (VENTOLIN HFA) 90 mcg/actuation inhaler Inhale 2 Puffs as instructed every 4 hours as needed. 18 g 0 06/20/2023 Active Problems Active Problems Problem Classification Problem Date Documented Da te Episodic/Chronic Aortic; peripheral; and visceral artery aneurysms (20 sources) Aneurysm of right iliac artery; Translations: [Aneurysm of iliac artery] Onset: 0 01-16-2020 Chronic Cardiac dysrhythmias (20 sources) Paroxysmal atrial flutter; Translations: [Unspecified atrial flutter] Onset: 2 01-16-2020 Chronic Chronic obstructive pulmonary disease and bronchiectasis (20 sources) Acute exacerbation of chronic obstructive airways disease; Translations: [Chronic obstructive pulmonary disease with (acute) exacerbation] Onset: 7 09-21-2021 Chronic Conditions associated with dizziness or vertigo (1 source) Benign paroxysmal vertigo, unspecified ear; Translations: [Benign paroxysmal positional vertigo, unspecified laterality] Onset: 4 Episodic Disorders of lipid metabolism (20 sources) Hyperlipidemia; Translations: [Hyperlipidemia, unspecified] Onset: 3 07-03-2021 Chronic Esophageal disorders (20 sources) Gastroesophageal reflux disease; Translations: [Gastro-esophageal reflux disease without esophagitis] Onset: 4 02-03-2014 Chronic Essential hypertension (20 sources) Hypertensive disorder; Translations: [Essential (primary) hypertension] Onset: 3 01-16-2020 Chronic Intestinal infection (1 source) Infection caused by Helicobacter pylori; Translations: [Other specified bacterial intestinal infections] 02-14-2023 Episodic Nutritional deficiencies (20 sources) Vitamin D deficiency; Translations: [Vitamin D deficiency, unspecified] Onset: 1 04-05-2021 Chronic Osteoarthritis (1 source) Osteoarthrosis of the carpometacarpal joint of the thumb; Translations: [Unilateral primary osteoarthritis of first carpometacarpal joint, right hand] 05-15-2023 Chronic Other aftercare (1 source) Long-term current use of anticoagulant; Translations: [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 anticoagulants] 05-28-2023 Episodic Other aftercare (1 source) 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 anticoagulants; Translations: [retirement current use of anticoagulant] Onset: 3 Episodic Other circulatory disease (20 sources) History of repair of aneurysm of abdominal aorta using endovascular stent graft; Translations: [Presence of other vascular implants and grafts] Onset: 3 12-31-2017 Chronic Other circulatory disease (20 sources) History of endovascular stent graft for repair of abdominal aortic aneurysm; Translations: [Presence of other vascular implants and grafts] Onset: 3 12-31-2017 Chronic Other circulatory disease (1 source) Presence of other vascular implants and grafts; Translations: [History of repair of aneurysm of abdominal aorta using endovascular stent graft] Onset: 8 Chronic Other connective tissue disease (1 source) Muscle pain; Translations: [Myalgia, unspecified site] Episodic Other connective tissue disease (1 source) Pain in right lower limb; Translations: [Pain in right leg] Episodic Other connective tissue disease (1 source) Tendinitis of elbow or forearm; Translations: [Other enthesopathies, not elsewhere classified] 05-15-2023 Episodic Other connective tissue disease (1 source) Radial styloid tenosynovitis [de Quervain]; Translations: [Radial styloid tenosynovitis of right hand] Onset: 4 Episodic Other ear and sense organ disorders (20 sources) Bilateral external auditory canal chronic otitis externa; Translations: [Unspecified chronic otitis externa, bilateral] Onset: 2 09-21-2021 Chronic Other ear and sense organ disorders (1 source) Bilateral external auditory canal chronic otitis externa; Translations: [Diffuse otitis externa, bilateral] Episodic Other eye disorders (1 source) Disorder of left eye; Translations: [Other specified disorders of eye and adnexa] Episodic Other gastrointestinal disorders (2 sources) Esophageal dysphagia; Translations: [Other dysphagia] Episodic Other gastrointestinal disorders (3 sources) Swallowing painful; Translations: [Dysphagia, unspecified] 02-01-2023 Episodic Other gastrointestinal disorders (1 source) Oropharyngeal dysphagia; Translations: [Dysphagia, oropharyngeal phase] 02-01-2023 Episodic Other inflammatory condition of skin (20 sources) Rosacea; Translations: [Rosacea, unspecified] Onset: 7 04-04-2017 Chronic Other lower respiratory disease (20 sources) Interstitial lung disease; Translations: [Interstitial pulmonary disease, unspecified] Onset: 2 Chronic Other lower respiratory disease (2 sources) Interstitial pulmonary disease, unspecified; Translations: [Interstitial pulmonary disease (HCC)] Onset: 2 Chronic Other lower respiratory disease (1 source) Multiple nodules of lung; Translations: [Other nonspecific abnormal finding of lung field] Episodic Other lower respiratory disease (1 source) Lower respiratory tract infection; Translations: [Unspecified acute lower respiratory infection] 03-24-2023 Episodic Other lower respiratory disease (15 sources) Respiratory tract congestion; Translations: [Other specified respiratory disorders] Onset: 3 05-01-2023 Episodic Other lower respiratory disease (15 sources) Cough; Translations: [Subacute cough] Onset: 3 05-01-2023 Episodic Other lower respiratory disease (15 sources) Dyspnea; Translations: [Shortness of breath] Onset: 3 05-01-2023 Episodic Other lower respiratory disease (15 sources) Wheezing; Translations: [Wheezing] Onset: 3 05-01-2023 Episodic Other lower respiratory disease (1 source) Dyspnea on exertion; Translations: [Other forms of dyspnea] 05-28-2023 Episodic Other lower respiratory disease (1 source) Other forms of dyspnea; Translations: [LOVE (dyspnea on exertion)] Onset: 3 Episodic Other male genital disorders (20 sources) Male erectile dysfunction, unspecified; Translations: [Impotence of organic origin] Onset: 1 05-11-2019 Chronic Other nervous system disorders (1 source) Chronic pain; Translations: [Other chronic pain] Chronic Other non-traumatic joint disorders (1 source) Pain in right knee; Translations: [Pain in joint, lower leg] Episodic Other non-traumatic joint disorders (1 source) Pain in right wrist; Translations: [Right wrist pain] Onset: 3 Episodic Other nutritional; endocrine; and metabolic disorders (20 sources) Obese class I; Translations: [Obesity, unspecified] Onset: 1 03-23-2021 Chronic Residual codes; unclassified (20 sources) Obstructive sleep apnea syndrome; Translations: [Obstructive sleep apnea (adult) (pediatric)] Onset: 4 01-16-2020 Chronic Residual codes; unclassified (1 source) Obstructive sleep apnea (adult) (pediatric); Translations: [VANIA (obstructive sleep apnea)] Onset: 0 Chronic Residual codes; unclassified (1 source) Chill; Translations: [Chills (without fever)] Episodic Spondylosis; intervertebral disc disorders; other back problems (10 sources) Lumbar spondylosis; Translations: [Spondylosis without myelopathy or radiculopathy, lumbar region] Onset: 3 Chronic Substance-related disorders (20 sources) Nicotine dependence; Translations: [Nicotine dependence, unspecified, uncomplicated] Onset: 0 01-16-2020 Chronic Thyroid disorders (20 sources) Hypothyroidism; Translations: [Hypothyroidism, unspecified] Onset: 7 07-03-2021 Chronic Unclassified (1 source) Unknown / UNK(Unknown) Onset: 7 Unclassified (1 source) NO SHOW 04-30-2023 Past or Other Problems Problem Classification Problem Date Documented Da te Episodic/Chronic Chronic obstructive pulmonary disease and bronchiectasis (20 sources) Bronchitis; Translations: [Bronchitis, not specified as acute or chronic] Onset: 04-04-2017 04-04-2017 Episodic Diabetes mellitus without complication (20 sources) Impaired fasting glycemia; Translations: [Impaired fasting glucose] Onset: 12-26-2020 12-26-2020 Episodic Immunizations and screening for infectious disease (4 sources) Vaccination needed; Translations: [Encounter for immunization] Onset: 11-14-2022 Episodic Mycoses (20 sources) Tinea cruris; Translations: [Tinea cruris] Onset: 12-19-2020 12-19-2020 Episodic Other gastrointestinal disorders (20 sources) Dysphagia; Translations: [Dysphagia, unspecified] Onset: 02-08-2023 02-01-2023 Episodic Other gastrointestinal disorders (4 sources) Dysphagia, unspecified; Translations: [Odynophagia] Onset: 02-01-2023 Episodic Other upper respiratory infections (1 source) Acute pharyngitis, unspecified; Translations: [Sore throat] Onset: 01-10-2023 Episodic Residual codes; unclassified (20 sources) Patient noncompliance - general; Translations: [Patient's noncompliance with other medical treatment and regimen] Onset: 02-03-2010 02-03-2010 Episodic Spondylosis; intervertebral disc disorders; other back problems (20 sources) Low back pain; Translations: [Lumbago] Onset: 03-08-2009 07-03-2021 Episodic Unclassified (1 source) Atypical atrial flutter Onset: 07-11-2017 Results Test Name Value Interpretation Reference Range Facil ity Vital Signs Date Time Vital Sign Value Performing Clinician Nahum marks 05-28-2023 13:00-0500 Body height 170.2 cm Marilee Batres DO Work Phone: [facility] 05-28-2023 13:00-0500 Body weight 97 kg Marilee Batres DO Work Phone: [facility] 05-28-2023 13:00-0500 Diastolic blood pressure 74 mm[Hg] Marilee Batres DO Work Phone: [facility] 05-28-2023 13:00-0500 Heart rate 51 /min Marilee Batres DO Work Phone: [facility] 05-28-2023 13:00-0500 SaO2% (BldA) [Mass fraction] 96 % Marilee Batres DO Work Phone: [facility] 05-28-2023 13:00-0500 Systolic blood pressure 126 mm[Hg] Marilee Batres DO Work Phone: [facility] 05-15-2023 16:54-0500 Body temperature 98.4 [degF] Magui Lopez PA-C Work Phone: [facility] 05-15-2023 16:54-0500 Body weight 96.98 kg Magui Lopez PA-C Work Phone: [facility] 05-15-2023 16:54-0500 Diastolic blood pressure 78 mm[Hg] Magui Athy PA-C Work Phone: [facility] 05-15-2023 16:54-0500 Heart rate 70 /min Magui Athy PA-C Work Phone: [facility] 05-15-2023 16:54-0500 Respiratory rate 16 /min Magui Athy PA-C Work Phone: [facility] 05-15-2023 16:54-0500 SaO2% (BldA) [Mass fraction] 96 % Magui Athy PA-C Work Phone: [facility] 05-15-2023 16:54-0500 Systolic blood pressure 120 mm[Hg] Magui Athy PA-C Work Phone: [facility] 05-10-2023 08:28-0400 Body height 172.7 cm Arjun Polanco MD Work Phone: [facility] 05-10-2023 08:28-0400 Body temperature 98.01 [degF] Arjun Polanco MD Work Phone: [facility] 05-10-2023 08:28-0400 Body weight 97.07 kg Arjun Polanco MD Work Phone: [facility] 05-10-2023 08:28-0400 Diastolic blood pressure 80 mm[Hg] Arjun Polanco MD Work Phone: [facility] 05-10-2023 08:28-0400 Heart rate 67 /min Arjun Polanco MD Work Phone: [facility] 05-10-2023 08:28-0400 Respiratory rate 16 /min Arjun Polanco MD Work Phone: [facility] 05-10-2023 08:28-0400 SaO2% (BldA) [Mass fraction] 96 % Arjun Polanco MD Work Phone: [facility] 05-10-2023 08:28-0400 Systolic blood pressure 140 mm[Hg] Arjun Polanco MD Work Phone: [facility] 04-23-2023 10:14-0400 Body height 172.5 cm Tg Albrecht MD Work Phone: [facility] 04-23-2023 10:140400 Body weight 97.52 kg Tg Albrecht MD Work Phone: [facility] 04-23-2023 10:14-0400 Diastolic blood pressure 74 mm[Hg] Tg Albrecht MD Work Phone: [facility] 04-23-2023 10:14-0400 Heart rate 58 /min Tg Albrecht MD Work Phone: [facility] 04-23-2023 10:14-0400 Respiratory rate 12 /min Tg Albrecht MD Work Phone: [facility] 04-23-2023 10:14-0400 SaO2% (BldA) [Mass fraction] 98 % Tg Albrecht MD Work Phone: [facility] 04-23-2023 10:14-0400 Systolic blood pressure 118 mm[Hg] Tg Albrecht MD Work Phone: [facility] 04-23-2023 10:12-0400 Body height 172.5 cm Pulm Wstr Work Phone: [facility] 04-23-2023 10:12-0400 Body weight 97.52 kg Pulm Wstr Work Phone: [facility] 04-23-2023 10:12-0400 Heart rate 58 /min Pulm Wstr Work Phone: [facility] 04-23-2023 10:12-0400 Respiratory rate 12 /min Pulm Wstr Work Phone: [facility] 04-23-2023 10:12-0400 SaO2% (BldA) [Mass fraction] 98 % Pulm Wstr Work Phone: [facility] 03-24-2023 13:52-0400 Body temperature 99.19 [degF] Deacon Marshall APRN.CNP Work Phone: [facility] 03-24-2023 13:52-0400 Body weight 96.62 kg Deacon Marshall CRANK HAND.ORCHARD SPRAYER Work Phone: [facility] 03-24-2023 13:52-0400 Diastolic blood pressure 68 mm[Hg] Deacon Marshall CRANK HAND.[employer]CHARD SPR[employer]ER Work Phone: [facility] 03-24-2023 13:52-0400 Heart rate 78 /min Deacon Marshall CRANK HAND.[employer]CHARD [employer]ER Work Phone: [facility] 03-24-2023 13:52-0400 Respiratory rate 18 /min Deacon Marshall CRANK HAND.[employer]CHARD SPR[employer]ER Work Phone: [facility] 03-24-2023 13:52-0400 SaO2% (BldA) [Mass fraction] 96 % Deacon Marshall CRANK HAND.[employer]CHARD SPR[employer]ER Work Phone: [facility] 03-24-2023 13:52-0400 Systolic blood pressure 122 mm[Hg] Deacon Marshall CRANK HAND.ORCHARD SPRAYER Work Phone: [facility] 03-14-2023 10:51-0400 Body height 175.3 cm David King MD, PhD Work Phone: [facility] 03-14-2023 10:51-0400 Body temperature 97.59 [degF] David King MD, PhD Work Phone: [facility] 03-14-2023 10:51-0400 Body weight 98.43 kg David King MD, PhD Work Phone: [facility] 03-14-2023 10:51-0400 Diastolic blood pressure 77 mm[Hg] David King MD, PhD Work Phone: [facility] 03-14-2023 10:51-0400 Heart rate 59 /min David King MD, PhD Work Phone: [facility] 03-14-2023 10:51-0400 Respiratory rate 14 /min David King MD, PhD Work Phone: [facility] 03-14-2023 10:51-0400 SaO2% (BldA) [Mass fraction] 96 % David King MD, PhD Work Phone: [facility] 03-14-2023 10:51-0400 Systolic blood pressure 146 mm[Hg] David King MD, PhD Work Phone: [facility] 03-08-2023 10:19-0400 Body height 175.3 cm Arjun Polanco MD Work Phone: [facility] 03-08-2023 10:19-0400 Body temperature 97.3 [degF] Arjun Polanco MD Work Phone: [facility] 03-08-2023 10:190400 Body weight 98.43 kg Arjun Polanco MD Work Phone: [facility] 03-08-2023 10:19-0400 Diastolic blood pressure 68 mm[Hg] Arjun Polanco MD Work Phone: [facility] 03-08-2023 10:19-0400 Heart rate 58 /min Arjun Polanco MD Work Phone: [facility] 03-08-2023 10:19-0400 SaO2% (BldA) [Mass fraction] 96 % Arjun Polanco MD Work Phone: [facility] 03-08-2023 10:19-0400 Systolic blood pressure 113 mm[Hg] Arjun Polanco MD Work Phone: [facility] 02-08-2023 13:30-0400 Diastolic blood pressure 74 mm[Hg] Juma Cabrera MD Work Phone: [facility] 02-08-2023 13:30-0400 Heart rate 47 /min Juma Cabrera MD Work Phone: [facility] 02-08-2023 13:30-0400 Respiratory rate 20 /min Juma Cabrera MD Work Phone: [facility] 02-08-2023 13:30-0400 SaO2% (BldA) [Mass fraction] 94 % Juma Cabrera MD Work Phone: [facility] 02-08-2023 13:30-0400 Systolic blood pressure 138 mm[Hg] Juma Cabrera MD Work Phone: [facility] 02-08-2023 13:15-0400 Body temperature 96.8 [degF] Juma Cabrera MD Work Phone: [facility] 02-08-2023 11:48-0400 Body height 175.3 cm Juma Cabrera MD Work Phone: [facility] 02-08-2023 11:48-0400 Body weight 98.43 kg Juma Cabrera MD Work Phone: [facility] 02-01-2023 07:56-0400 Body height 175.3 cm Arjun Polanco MD Work Phone: [facility] 02-01-2023 07:56-0400 Body temperature 97.81 [degF] Arjun Polanco MD Work Phone: [facility] 02-01-2023 07:56-0400 Body weight 98.79 kg Arjun Polanco MD Work Phone: [facility] 02-01-2023 07:56-0400 Diastolic blood pressure 81 mm[Hg] Arjun Polanco MD Work Phone: [facility] 02-01-2023 07:56-0400 Heart rate 50 /min Arjun Polanco MD Work Phone: [facility] 02-01-2023 07:56-0400 SaO2% (BldA) [Mass fraction] 96 % Arjun Polanco MD Work Phone: [facility] 02-01-2023 07:56-0400 Systolic blood pressure 132 mm[Hg] Arjun Polanco MD Work Phone: [facility] 12-21-2022 09:39-0400 Body temperature 98.01 [degF] Deacon Marshall APRN.ORCHARD SPRAYER Work Phone: [facility] 12-21-2022 09:39-0400 Body weight 99.25 kg Deacon Marshall APRN.ORCHARD SPRAYER Work Phone: [facility] 12-21-2022 09:39-0400 Diastolic blood pressure 70 mm[Hg] Deacon King CRANK HAND.[employer]CH[employer]ER Work Phone: [facility] 12-21-2022 09:39-0400 Heart rate 66 /min Deacon Rolando CRANK [employer]CH[employer]ER Work Phone: [facility] 12-21-2022 09:39-0400 Respiratory rate 18 /min Deacon Rolando CRANK HAND.[employer]CHARD [employer]ER Work Phone: [facility] 12-21-2022 09:39-0400 SaO2% (BldA) [Mass fraction] 95 % Deacon Marshall CRANK HAND.[employer]CHARD [employer]ER Work Phone: [facility] 12-21-2022 09:39-0400 Systolic blood pressure 116 mm[Hg] Deacon Marshall CRANK HAND.[employer]CHARD [employer]ER Work Phone: [facility] 10-12-2022 13:55-0400 Body weight 97.98 kg Tg Albrecht MD Work Phone: [facility] 10-12-2022 13:55-0400 Diastolic blood pressure 88 mm[Hg] Tg Albrecht MD Work Phone: [facility] 10-12-2022 13:55-0400 Heart rate 62 /min Tg Albrecht MD Work Phone: [facility] 10-12-2022 13:55-0400 Respiratory rate 17 /min Tg Albrecht MD Work Phone: [facility] 10-12-2022 13:55-0400 SaO2% (BldA) [Mass fraction] 95 % Tg Albrecht MD Work Phone: [facility] 10-12-2022 13:55-0400 Systolic blood pressure 168 mm[Hg] Tg Albrecht MD Work Phone: [facility] 06-21-2022 10:40-0500 Body weight 101.61 kg Gege Maravilla CRANK HAND.[employer]CHARD [employer]ER Work Phone: [facility] 06-21-2022 10:40-0500 Heart rate 63 /min Gege Maravilla CRANK HAND.[employer]CHARD [employer]ER Work Phone: [facility] 06-21-2022 10:40-0500 SaO2% (BldA) [Mass fraction] 95 % Gege Maravilla CRANK HAND.ORCHARD [employer]ER Work Phone: [facility] 05-28-2022 15:44-0500 Diastolic blood pressure 72 mm[Hg] Kamini Older CRANK HAND.ORCHARD SPRAYER Work Phone: [facility] 05-28-2022 15:44-0500 Systolic blood pressure 118 mm[Hg] Kamini Older CRANK HAND.[employer]CHARD [employer]AYER Work Phone: [facility] 05-28-2022 15:31-0500 Body weight 100.7 kg Kamini Older CRANK HAND.[employer]CHARD SPR[employer]ER Work Phone: [facility] 05-28-2022 15:31-0500 Heart rate 98 /min Kamini Older CRANK HAND.ORCHARD [employer]ER Work Phone: [facility] 05-28-2022 15:31-0500 Respiratory rate 20 /min Kamini Older CRANK HAND.ORCHARD [employer]ER Work Phone: [facility] 05-28-2022 14:11-0500 Body height 175.3 cm Tg Albrecht MD Work Phone: [facility] 05-28-2022 14:11-0500 Body weight 101.79 kg Tg Albrecht MD Work Phone: [facility] 05-28-2022 14:11-0500 Diastolic blood pressure 82 mm[Hg] Tg Albrecht MD Work Phone: [facility] 05-28-2022 14:11-0500 Heart rate 61 /min Tg Albrecht MD Work Phone: [facility] 05-28-2022 14:11-0500 Respiratory rate 16 /min Tg Albrecht MD Work Phone: [facility] 05-28-2022 14:11-0500 SaO2% (BldA) [Mass fraction] 96 % Tg Albrecht MD Work Phone: [facility] 05-28-2022 14:11-0500 Systolic blood pressure 135 mm[Hg] Tg Albrecht MD Work Phone: [facility] 03-28-2022 11:04-0400 Body temperature 97.81 [degF] Kamini Older CRANK [employer].ORCHARD SPRAYER Work Phone: [facility] 03-28-2022 11:04-0400 Body weight 98.88 kg Kamini Older [employer]CH[employer]ER Work Phone: [facility] 03-28-2022 11:04-0400 Diastolic blood pressure 82 mm[Hg] Kamini Older [employer]CHARD SPRAYER Work Phone: [facility] 03-28-2022 11:04-0400 Heart rate 56 /min Kamini Older [employer]ER Work Phone: [facility] 03-28-2022 11:04-0400 Respiratory rate 12 /min Kamini Older [employer]CHARD [employer]ER Work Phone: [facility] 03-28-2022 11:04-0400 Systolic blood pressure 148 mm[Hg] Kamini Older [employer]ORCHARD [employer]AYER Work Phone: [facility] 12-25-2021 19:17-0400 Body temperature 97.9 [degF] Levon Corral MD Work Phone: [facility] 12-25-2021 19:17-0400 Body weight 101.42 kg Levon Corral MD Work Phone: [facility] 12-25-2021 19:17-0400 Diastolic blood pressure 72 mm[Hg] Levon Corral MD Work Phone: [facility] 12-25-2021 19:17-0400 Heart rate 60 /min Levon Corarl MD Work Phone: [facility] 12-25-2021 19:17-0400 Respiratory rate 20 /min Levon Corral MD Work Phone: [facility] 12-25-2021 19:17-0400 Systolic blood pressure 128 mm[Hg] Levon Corral MD Work Phone: [facility] 11-07-2021 13:19-0400 Body weight 102.51 kg Tg Albrecht MD Work Phone: [facility] 11-07-2021 13:19-0400 Diastolic blood pressure 80 mm[Hg] Tg Albrecht MD Work Phone: [facility] 11-07-2021 13:19-0400 Heart rate 58 /min Tg Albrecht MD Work Phone: [facility] 11-07-2021 13:19-0400 Respiratory rate 17 /min Tg Albrecht MD Work Phone: [facility] 11-07-2021 13:19-0400 SaO2% (BldA) [Mass fraction] 95 % Tg Albrecht MD Work Phone: [facility] 11-07-2021 13:19-0400 Systolic blood pressure 128 mm[Hg] Tg Albrecht MD Work Phone: [facility] 10-24-2021 14:47-0400 Body height 172.7 cm Respiratory Wstr Work Phone: [facility] 10-24-2021 14:47-0400 Body weight 102.51 kg Respiratory Wstr Work Phone: [facility] 10-24-2021 14:47-0400 Heart rate 58 /min Respiratory Wstr Work Phone: [facility] 10-24-2021 14:47-0400 Respiratory rate 14 /min Respiratory Wstr Work Phone: [facility] 10-24-2021 14:47-0400 SaO2% (BldA) [Mass fraction] 93 % Respiratory Wstr Work Phone: [facility] Encounters Encounter Date Encounter Type Care Provider Facility Start: 07-19-2023 End: 07-20-2023 ambulatory LEVON CORRAL Facility:[facility] Start: 06-24-2023 End: 06-24-2023 ambulatory LEVON CORRAL Facility:[facility] Start: 06-22-2023 Telephone encounter Arjun santos MD Work Phone: Gastroenterology Procedures Date Procedure Procedure Detail Performing Clinician Start: 06-12-2023 Esophageal motility study w/interp&rpt Arjun Polanco MD Work Phone: Start: 04-23-2023 Brncdilat rspse spmtry pre&post-brncdilat admn Tg Albrecht MD Work Phone: Start: 04-12-2023 INFLUENZA VACCINE, AGE 6 MO - 64 YR, QUADRIVALENT (AFLURIA, FLULAVAL, FLUZONE) Lesly Martin MD Work Phone: Start: 03-07-2023 Radiologic exam esophagus single contrast study Carolina Tapia MD Work Phone: Start: 02-08-2023 Esophagogastroduodenoscopy transoral diagnostic Arjun Polanco MD Work Phone: Start: 10-09-2022 Ct thorax w/o contrast material Lolita Albrecht MD Work Phone: Start: 04-28-2022 PFIZER-BIONTECH COVID-19 BIVALENT BOOSTER VACCINE, AGE 12+ YR Levon Corral MD Work Phone: Start: 03-28-2022 INFLUENZA VACCINE QUADRIVALENT 6 MO - 64 YRS IM Kamini Older [employer]CH[employer]ER Work Phone: Start: 03-28-2022 Adult depression screening assessment Kamini Older [employer]CH[employer]ER Work Phone: Start: 12-25-2021 PFIZER-BIONTECH COVID-19 VACCINE, AGE 12+ YR (RIOJAS TOP) Levon Corral MD Work Phone: Start: 12-07-2021 Radiologic exam esophagus single contrast study Tg Albrecht MD Work Phone: Start: 11-03-2021 Ct thorax w/o contrast material Lolita Albrecht MD Work Phone: Start: 10-24-2021 Brncdilat rspse spmtry pre&post-brncdilat admn Tg Albrecht MD Work Phone: Start: 03-24-2021 Lipid 1996 panel - Serum or Plasma Arthur Christensen RN Work Phone: Start: 03-23-2021 Adult depression screening assessment Levon Corral MD Work Phone: Start: 11-17-2014 Colonoscopy Levon Corral MD Work Phone: Plan of Treatment Date Care Activity Detail Author Start: 12-04-2027 Urine microalbumin profile [facility] Start: 03-24-2026 Lipid 1996 panel - S harry or Plasma Lipid Screening [facility] Start: 03-24-2026 Lipid panel Lipid Screening [facility] Start: 03-24-2026 LIPID SCREEN LIPID SCREEN [facility] Start: 11-17-2024 Colonoscopy COLONOSCOPY [facility] Start: 11-17-2024 COLORECTAL CANCER SCREENING COLORECTAL CANCER SCREENING [facility] Start: 11-17-2024 Screening for malign ant neoplasm of colon [facility] Start: 10-17-2024 DIABETES SCREEN DIABETES SCREEN [facility] Start: 10-17-2024 Diabetes Screening Diabetes Screenin g [facility] Start: 05-28-2024 BP Controlled (<130/80) BP Controlle d (<130/80) [facility] Start: 05-15-2024 BP Controlled (<130/80) BP Controlle d (<130/80) [facility] Start: 04-23-2024 BP Controlled (<130/80) BP Controlle d (<130/80) [facility] Start: 03-24-2024 BP Controlled (<130/80) BP Controlle d (<130/80) [facility] Start: 03-24-2024 DIABETES SCREEN DIABETES SCREEN [facility] Start: 01-10-2024 PROSTATE CANCER SCRE ENING DISCUSSION PROSTATE CANCER SCREENING DISCUSSION [facility] Start: 01-10-2024 Prostate specific an tigen measurement Prostate Cancer Screening Discussion [facility] Start: 12-22-2023 BP CONTROLLED (<130/80) BP CONTROLLE D (<130/80) [facility] Start: 11-27-2023 ANNUAL PCP TEAM FILM OR TAPE LIBRARIAN MARCK DISEASE VISIT ANNUAL PCP TEAM CHRONIC DISEASE VISIT [facility] Start: 11-27-2023 BP CONTROLLED (<130/80) BP CONTROLLE D (<130/80) [facility] Start: 11-02-2023 BP CONTROLLED (<130/80) BP CONTROLLE D (<130/80) [facility] Start: 10-10-2023 Influenza vaccination LUNG CANCER SC REENING [facility] Start: 10-10-2023 Screening for malign ant neoplasm of lung Lung Cancer Screening [facility] Start: 05-28-2023 ANNUAL PCP TEAM FILM OR TAPE LIBRARIAN MARCK DISEASE VISIT ANNUAL PCP TEAM CHRONIC DISEASE VISIT [facility] Start: 05-28-2023 BP CONTROLLED (<130/80) BP CONTROLLE D (<130/80) [facility] Start: 03-28-2023 Adult depression scr eening assessment DEPRESSION SCREENING [facility] Start: 03-28-2023 ANNUAL PCP TEAM FILM OR TAPE LIBRARIAN MARCK DISEASE VISIT ANNUAL PCP TEAM CHRONIC DISEASE VISIT [facility] Start: 03-28-2023 SHINGRIX VACCINE (1 of 2) SHIELDS GRIX VACCINE (1 of 2) [facility] Immunizations Immunization Date Immunization Notes Care Provider Vivien capps 04-12-2023 influenza, injectabl e, quadrivalent, contains preservative Immunization [facility] Work Phone: [facility] Work Phone: 04-28-2022 COVID-19 booster vaccine, age 12+ yr, bivalent (PFIZER-BIONTAccellos) Immunization [facility] Work Phone: [facility] Work Phone: 03-28-2022 influenza, injectabl e, quadrivalent, contains preservative Kamini Older [employer] HAND[employer]ORCHARD SPRAYER Work Phone: [facility] Work Phone: 03-28-2022 pneumococcal (PCV20) vaccine, 20 valent (PREVNAR 20) Kamini Older [employer]CH[employer] SPR[employer]ER Work Phone: [facility] Work Phone: 03-28-2022 pneumococcal Conjuga te, unspecified formulation Kamini Older [employer]ANK HAND.ORCHARD SPRAYER Work Phone: [facility] Work Phone: 03-28-2022 influenza virus vaccine, unspecified formulation Corie Christensen RN Work Phone: [facility] 12-25-2021 COVID-19 vaccine, ag e 12+ yr ([employer]) Levon Corral MD Work Phone: [facility] Work Phone: 06-08-2021 COVID-19 original vaccine, full dose, monovalent (MODERNA) Vic Martinez RN Work Phone: [facility] 03-23-2021 influenza, injectabl e, quadrivalent, contains preservative Levon Corral MD Work Phone: [facility] Work Phone: 10-27-2020 COVID-19 vaccine, fu ll dose (MODERNA) Levon Corral MD Work Phone: [facility] Work Phone: 09-29-2020 COVID-19 vaccine, fu ll dose (MODERNA) Levon Corral MD Work Phone: [facility] Work Phone: 04-02-2020 influenza, injectabl e, quadrivalent, contains preservative Levon Corral MD Work Phone: [facility] 05-11-2019 influenza, injectabl e, quadrivalent, contains preservative Levon Corral MD Work Phone: [facility] Work Phone: 04-02-2018 influenza, injectabl e, quadrivalent, contains preservative Levon Corral MD Work Phone: [facility] Work Phone: 12-03-2017 tetanus toxoid, redu arti diphtheria toxoid, and acellular pertussis vaccine, adsorbed Levon Corral MD Work Phone: [facility] Work Phone: 04-04-2017 influenza, injectabl e, quadrivalent, contains preservative Levon Corral MD Work Phone: [facility] 05-03-2016 influenza, seasonal, injectable Levon Corral MD Work Phone: [facility] 04-07-2014 influenza, seasonal, injectable Levon Corral MD Work Phone: [facility] 04-13-2013 influenza virus vaccine, unspecified formulation Levon Corral MD Work Phone: [facility] 04-11-2012 influenza virus vaccine, unspecified formulation Levon Corral MD Work Phone: [facility] Work Phone: 09-04-2011 tetanus toxoid, redu arti diphtheria toxoid, and acellular pertussis vaccine, adsorbed Levon Corral MD Work Phone: [facility] Work Phone: 05-25-2011 pneumococcal polysaccharide vaccine, 23 valent Levon Corral MD Work Phone: [facility] Work Phone: 05-11-2011 influenza virus vaccine, unspecified formulation Levon Corral MD Work Phone: [facility] Work Phone: 05-16-2010 influenza virus vaccine, unspecified formulation Levon Corral MD Work Phone: [facility] Work Phone: 04-09-2009 influenza virus vaccine, unspecified formulation Levon Corral MD Work Phone: [facility] Work Phone: 05-13-2008 influenza virus vaccine, unspecified formulation Levon Corral MD Work Phone: [facility] Work Phone: Payers Date Payer Category Payer Medicare HUMANA MEDICARE HUMANA GOLD PLUS [id number] 2023-Present [phone] [address] [address] [place] [address] O [id number] 2023 Private Health Insurance [id number] 2019 Medicaid MEDICAID [facility] MEDICAID [id number] 2019-Present [phone] [address] [place] [address] Medicaid [id number] 2019 Medicaid MEDICAID [facility] MEDICAID [id number] 2019-Present [phone] [address] [place] [address] Medicaid [id number] 2019 Medicaid [id number] 2019 Unknown ANTHEM BLUE CROS S AND BLUE SHIELD ANTHEM MEDIBLUE HMO [id number] 2019-Present [phone] [address] [place] [address] O [id number] 2019 Unknown [id number] 2019 Unknown [id number] Medicare [id number] Social History Date Type Detail Facility Start: 07-08-1973 End: 10-12-2022 Tobacco smoking status KSIS Smokes tobacco daily [facility] Start: 07-08-1973 History of tobacco use Cigarette Smo ker [facility] Start: 05-15-2021 End: 11-26-2022 Cigarettes smoked current (pack per day) - Reported 0.5 [facility] Work Phone: Start: 05-15-2021 End: 10-12-2022 Tobacco use and exposure Smokeless tobacco non-user [facility] Start: 09-21-2021 End: 05-28-2023 Alcohol intake Current non-drinker of alcohol (finding) [facility] Start: 1960 Sex Assigned At Not on file C [facility] Start: 09-15-2021 End: 05-28-2022 Exposure to SARS-CoV-2 (event) Not sure [facility] Start: 10-24-2021 End: 02-14-2022 Tobacco Comment one ppd in past [facility] Start: 10-12-2022 Tobacco Comment Currently 0.5p pd 10/12/22 [facility] Start: 11-26-2022 End: 01-10-2023 Tobacco use panel [facility] Work Phone: Adult Depression Screening Assessment 2 [facility] Work Phone: (I/We) worried wheth er (my/our) food would run out before (I/we) got money to buy more. Never true [facility] Work Phone: Medical Equipment Procedure Code Equipment Code Equipment Origin al Text Equipment Identifier Dates [employer] L eg 24-56mm Xt - [id number] Start: 06-12-2013 Goals Date Patient Goal Desired Activity /State Personal health goal Clinical Notes 04-02-2018 to 07-19-2023 Telephone Encounter - Arjun Polanco MD - 06/22/2023 10:28 AM ESTTelephone Encounter - Alyx Goodman LPN - 06/20/2023 2:51 PM Nancy Alonzo RN - 06/12/2023 3:15 PM ESTPatient Instructions Note Date & Type Note Facility 07-19-2023 Note HNO ID: [id number] Author: LEVON CORRAL MD Service: ? Author Type: Physician Type: Progress Notes Filed: 07/19/2023 13:53 Note Text: This note was created using Tuniuriter. Subjective Jennie Mccarthy is a 62 year old male. His right wrist was hurting more from his injury early May. He denied reinjury, and he has been using the wrist brace. He pointed to the radial wrist. Xray showed no injury. He also mentioned recurrent dizziness that sounded chronic. He described spinning sensation that lasted 30 seconds, occasionally with upset stomach triggered when lying down. Review of Systems Constitutional: Negative for chills and fever. HENT: Positive for tinnitus. Negative for hearing loss and sore throat. Eyes: Negative for visual disturbance. Respiratory: Negative for shortness of breath. Cardiovascular: Negative for chest pain. Neurological: Negative for syncope, facial asymmetry, weakness, numbness and headaches. 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 apixaban (ELIQUIS) 5 mg tab(s) Take 1 tablet by mouth two times a day. atorvastatin (LIPITOR) 80 mg tablet Take 1 tablet by mouth daily at bedtime. For cholesterol. gabapentin (NEURONTIN) 300 mg capsule Take 2 capsules by mouth two times a day for 90 days. lisinopril (ZESTRIL) 40 mg tablet Take 1 tablet by mouth once daily. levothyroxine (SYNTHROID) 137 mcg tablet Take 1 tablet by mouth once daily. Take on empty stomach pantoprazole DR (PROTONIX) 40 mg tablet Take 1 tablet by mouth once daily. tiotropium bromide (SPIRIVA RESPIMAT) 2.5 mcg/actuation inhaler Inhale 2 Puffs as instructed once daily. ibuprofen (MOTRIN) 800 mg tablet Take 1 tablet by mouth once daily. nitroglycerin sublingual (NITROQUICK) 0.4 mg SL tablet Dissolve 1 tablet under the tongue as needed. FOR CHEST PAIN. IF NO RELIEF CALL 911 hydrocortisone 2.5 % cream Apply to scaly patches on face two times daily as needed for flares. Use 2 weeks on 1 week off albuterol (PROVENTIL) 2.5 mg /3 mL (0.083 %) nebulizer solution Use 3 mL via nebulizer every 4 hours as needed for wheezing/shortness of breath. Use over 5-15minutes. Nebulizer NEBULIZER FOR HOME USE. No current facility-administered medications for this visit. Objective BP 136/74 (BP Site: Left Arm, BP Position: Sitting, BP Cuff Size: Large Adult) Pulse (!) 53 Temp 37.1 ?C (98.8 ?F) Resp 14 Ht 170.2 cm (5' 7 ) Wt 103.9 kg (229 lb) SpO2 97% BMI 35.87 kg/m? Physical Exam Constitutional: Appearance: He is not ill-appearing. HENT: Head: Atraumatic. Right Ear: There is impacted cerumen. Left Ear: Tympanic membrane normal. Eyes: Extraocular Movements: Extraocular movements intact. Conjunctiva/sclera: Conjunctivae normal. Neck: Vascular: No carotid bruit. Cardiovascular: Rate and Rhythm: Regular rhythm. Bradycardia present. Heart sounds: No murmur heard. No gallop. Pulmonary: Effort: No respiratory distress. Breath sounds: No wheezing or rales. Musculoskeletal: Right wrist: Tenderness present. No swelling, deformity or crepitus. Normal range of motion. Normal pulse. Right hand: Normal. Comments: + Finkl[place]in right radial wrist. Neurological: General: No focal deficit present. Mental Status: He is alert. Cranial Nerves: No cranial nerve deficit. Sensory: No sensory deficit. Motor: No weakness. Coordination: Coordination normal. Gait: Gait normal. Assessment and Plan 1. Radial styloid tenosynovitis of right hand - ICD9: 727.04, ICD10: M65.4 (primary diagnosis) - PREDNISONE 10 MG TABLET Discussed medication dosage, usage, goals of therapy, and side effects. Consider physical therapy if not better. 2. Benign paroxysmal positional vertigo, unspecified laterality - ICD9: 386.11, ICD10: H81.10 - This may improve with prednisone. Avoid triggers. Levon Corral MD [facility] 07-19-2023 Note HNO ID: [id number] Author: JUANITA ZAMUDIO MA Service: ? Author Type: Delivery Person Type: Progress Notes Filed: 07/19/2023 12:30 Note Text: POPULATION HEALTH NAVIGATION OUTREACH Action/I July 19, 2023 12:25 PM Spoke to pt and scheduled PCP appt for wrist injury Appointments for Next 60 Days Date Time Provider Location Dept Phone 07/19/2023 1:00 PM LEVON CORRAL [facility] [phone] Patient Identified by Name and : YES, via phone Outreach Outcome/Action Spoke to patient / parent / legal guardian: Patient scheduled Did you use a PCP flex slot to schedule this appointment? No Reason for Outreach [facility] Payer: Payor: HUMANA MEDICARE / Plan: HUMANA Fanzter PLUS / Product Type: HMO / Care Gap Reviewed:: Follow-up appointment Reminder: Reminder note to check Health Maintenance for items below Health Maintenance items due: Shingrix Vaccine(1 of 2) Never done RSV Vaccine(1 - 1-dose 60+ series) Never done Covid-19 Vaccine(2022- season) due on 03/08/2023 Depression Assessment due on 07/08/2023 Navigation Signature: Juanita Zamudio MA July 19, 2023 12:25 PM [facility] 07-19-2023 Note HNO ID: [id number] Author: HERMINIO MUSA RN Service: ? Author Type: Registered Nurse Type: Progress Notes Filed: 07/19/2023 12:07 Note Text: CDM Telephonic Outreach Provider Action/FYI Navigators please assist pt with scheduling appt with pcp office (anyone) to have wrist evaluated. Pt twisted it and it is very painful. Contacted for: Routine Telephonic Outreach Contact made with patient: Yes Patient identified by name and date of . Discussed care with patient Are you experiencing any new or worsening symptoms you need to talk about today? No Disease Specific Do you check your blood pressure at home? No Do you have new or worsening shortness of breath with activity? No Do you have new or worsening cough? No Do you have new or worsening wheezing? No Do you need to use your rescue (Albuterol) inhaler or nebulizer more often than normal? No Based on service order dispatcher chief, the following disposition is advised: No symptoms or symptoms present, not severe. Routed to: Navigation Team: PCP visit within 7 days [facility] Education Provided this Outreach: No Pt reports he is doing ok and he is not having any new or worsening cdm concerns at this time. He reports he twisted his right writst back in May and it is still really hurting him and he needs an appointment to get it looked at. I will send a message to the Navigation team to assist with scheduling. Pt will contact the office with any additional needs, concerns, or questions. Herminio Musa RN July 19, 2023 12:04 PM [facility] 07-19-2023 Note Patient Outreach ([facility]) JENNIE MCCARTHY ([id number]) 1960 M Date Time Provider Department 07/19/23 HERMINIO MUSA During your visit today, we recorded the following information about you: Herminio Musa RN 07/19/2023 12:07 PM Signed CDM Telephonic Outreach Provider Action/ Navigators please assist pt with scheduling appt with pcp office (anyone) to have wrist evaluated. Pt twisted it and it is very painful. Contacted for: Routine Telephonic Outreach Contact made with patient: Yes Patient identified by name and date of . Discussed care with patient Are you experiencing any new or worsening symptoms you need to talk about today? No Disease Specific Do you check your blood pressure at home? No Do you have new or worsening shortness of breath with activity? No Do you have new or worsening cough? No Do you have new or worsening wheezing? No Do you need to use your rescue (Albuterol) inhaler or nebulizer more often than normal? No Based on service order dispatcher chief, the following disposition is advised: No symptoms or symptoms present, not severe. Routed to: Navigation Team: PCP visit within 7 days [facility] Provided this Outreach: No Pt reports he is doing ok and he is not having any new or worsening cdm concerns at this time. He reports he twisted his right writst back in May and it is still really hurting him and he needs an appointment to get it looked at. I will send a message to the Navigation team to assist with scheduling. Pt will contact the office with any additional needs, concerns, or questions. Herminio Musa RN July 19, 2023 12:04 PM Juanita Zamudio MA 07/19/2023 12:30 PM Signed POPULATION HEALTH NAVIGATION OUTREACH Action/I July 19, 2023 12:25 PM Spoke to pt and scheduled PCP appt for wrist injury Appointments for Next 60 Days Date Time Provider Location Dept Phone 07/19/2023 1:00 PM LEVON CORRAL [facility] [phone] Patient Identified by Name and : YES, via phone Outreach Outcome/Action Spoke to patient / parent / legal guardian: Patient scheduled Did you use a PCP flex slot to schedule this appointment? No Reason for Outreach [facility] Payer: Payor: [employer] MEDICARE / Plan: [employer] PLUS / Product Type: HMO / Care Gap Reviewed:: Follow-up appointment Reminder: Reminder note to check Health Maintenance for items below Health Maintenance items due: Shingrix Vaccine(1 of 2) Never done RSV Vaccine(1 - 1-dose 60+ series) Never done Covid-19 Vaccine( season) due on 03/08/2023 Depression Assessment due on 07/08/2023 Navigation Signature: Juanita Zamudio MA July 19, 2023 12:25 PM Allergies As of Date: 07/19/2023 (No Known Allergies) Date Reviewed: 06/24/2023 Reviewed by: Dianelys Cruz LPN - Fully Assessed Reason for Visit: CDM [Other] Cmt: Telephonic Outreach Prescriptions as of 07/19/2023 - albuterol HFA (VENTOLIN HFA) 90 mcg/actuation inhaler Inhale 2 Puffs as instructed every 4 hours as needed. - apixaban (ELIQUIS) 5 mg tab(s) Take 1 tablet by mouth two times a day. - atorvastatin (LIPITOR) 80 mg tablet Take 1 tablet by mouth daily at bedtime. For cholesterol. - gabapentin (NEURONTIN) 300 mg capsule Take 2 capsules by mouth two times a day for 90 days. - lisinopril (ZESTRIL) 40 mg tablet Take 1 tablet by mouth once daily. - levothyroxine (SYNTHROID) 137 mcg tablet Take 1 tablet by mouth once daily. Take on empty stomach - pantoprazole DR (PROTONIX) 40 mg tablet Take 1 tablet by mouth once daily. - tiotropium bromide (SPIRIVA RESPIMAT) 2.5 mcg/actuation inhaler Inhale 2 Puffs as instructed once daily. - ibuprofen (MOTRIN) 800 mg tablet Take 1 tablet by mouth once daily. - nitroglycerin sublingual (NITROQUICK) 0.4 mg SL tablet Dissolve 1 tablet under the tongue as needed. FOR CHEST PAIN. IF NO RELIEF CALL 911 - hydrocortisone 2.5 % cream Apply to scaly patches on face two times daily as needed for flares. Use 2 weeks on 1 week off - albuterol (PROVENTIL) 2.5 mg /3 mL (0.083 %) nebulizer solution Use 3 mL via nebulizer every 4 hours as needed for wheezing/shortness of breath. Use over 5-15minutes. - Nebulizer NEBULIZER FOR HOME USE. Problem List As Of Date 07/19/2023 Noted Resolved Esophageal reflux [K21.9] Internal hemorrhoids without mention of complic*10/24/2006 01/02/2017 Tobacco use disorder [F17.200] 10/24/2006 09/04/2011 COPD with exacerbation (HCC) [J44.1] 10/24/2006 Hypothyroidism [E03.9] 11/05/2006 GYNECOMASTIA [N62] 11/08/2006 11/04/2008 Unspecified sleep apnea [G47.30] 04/03/2007 06/09/2013 Lung bullae (HCC) [J43.9] 05/28/2007 SCREENING FOR CONDITION NOS [Z13.9] 11/21/2007 11/04/2008 Obesity, unspecified [E66.9] 11/04/2008 06/08/2013 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/12/2013 Lumbago [M54.50] 03/08/2009 (more content not included)... [facility] 06-24-2023 Note HNO ID: [id number] Author: Rob Santos RT(R) Service: ? Author Type: Technologist Type: Progress Notes Filed: 06/24/2023 1:18 PM Note Text: Radiology Service Progress Note PATIENT NAME: Jennie Mccarthy DATE OF SERVICE: June 24, 2023 TIME: 1:11 PM PATIENT IDENTITY VERIFICATION COMPLETED USING TWO (2) IDENTIFIERS: Name and Date of confirmed by patient verbally. FALL SCREENING: Has the patient had 2 falls in the last year or 1 fall with injury or currently using an Ambulatory Assistive Device (Walker, Cane, Wheelchair, Crutches, etc.)? No PATIENT GENDER DATA: Male PATIENT RELEVANT IMPLANT DATA REVIEWED: Not Applicable RADIOLOGY DEPARTMENT: General X-ray: Exam(s) Completed: Chest X-Ray PERIPHERAL IV DATA: Not applicable SIGNED BY: Rob Santos RT(R) June 24, 2023 1:11 PM [facility] 06-24-2023 Note HNO ID: [id number] Author: Levon Corral MD Service: ? Author Type: Physician Type: Progress Notes Filed: 06/24/2023 1:02 PM Note Text: This note was created using Tuniur[employer]. Subjective Jennie Mccarthy is a 62 year old male. He had Covid in March, and felt he has not recovered since then. He saw pulmonary and a virtualist in April with partial improvement. He was vague about using his inhalers, and did not use his nebulizer due to bed bug concerns. Review of Systems Constitutional: Negative for chills, fever and unexpected weight change. Respiratory: Positive for cough, shortness of breath and wheezing. Cardiovascular: Negative for chest pain, palpitations and leg swelling. Gastrointestinal: Negative for diarrhea and nausea. Neurological: Positive for light-headedness. Negative for headaches. 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 Graft Lumbago Patient Noncompliance Erectile Dysfunction Paroxysmal Atrial Flutter (Hcc) Hyperlipidemia Hypertension VANIA (obstructive sleep apnea) AHI 71 Rosacea Iliac Artery Aneurysm, Right (Hcc) Nicotine use disorder, F17.2 Tinea Cruris Impaired Fasting Glucose Obesity, Class I, Bmi 30-34.9 Vitamin D Deficiency Chronic Otitis Externa of Both Ears Interstitial Pulmonary Disease (Hcc) Dysphagia Social History Tobacco Use Smoking status: Every Day Packs/day: 0.50 Years: 46.00 Additional pack years: 0.00 Total pack years: 23.00 Types: Cigarettes Start date: 07/08/1973 Smokeless tobacco: Never Tobacco comments: Currently 0.5ppd 10/12/22 Vaping Use Vaping Use: Never used Substance Use Topics Alcohol use: No Drug use: Yes Types: Marijuana Comment: Off and on. Current Outpatient Medications Medication Sig albuterol HFA (VENTOLIN HFA) 90 mcg/actuation inhaler Inhale 2 Puffs as instructed every 4 hours as needed. apixaban (ELIQUIS) 5 mg tab(s) Take 1 tablet by mouth two times a day. atorvastatin (LIPITOR) 80 mg tablet Take 1 tablet by mouth daily at bedtime. For cholesterol. gabapentin (NEURONTIN) 300 mg capsule Take 2 capsules by mouth two times a day for 90 days. lisinopril (ZESTRIL) 40 mg tablet Take 1 tablet by mouth once daily. levothyroxine (SYNTHROID) 137 mcg tablet Take 1 tablet by mouth once daily. Take on empty stomach pantoprazole DR (PROTONIX) 40 mg tablet Take 1 tablet by mouth once daily. tiotropium bromide (SPIRIVA RESPIMAT) 2.5 mcg/actuation inhaler Inhale 2 Puffs as instructed once daily. ibuprofen (MOTRIN) 800 mg tablet Take 1 tablet by mouth once daily. nitroglycerin sublingual (NITROQUICK) 0.4 mg SL tablet Dissolve 1 tablet under the tongue as needed. FOR CHEST PAIN. IF NO RELIEF CALL 911 hydrocortisone 2.5 % cream Apply to scaly patches on face two times daily as needed for flares. Use 2 weeks on 1 week off albuterol (PROVENTIL) 2.5 mg /3 mL (0.083 %) nebulizer solution Use 3 mL via nebulizer every 4 hours as needed for wheezing/shortness of breath. Use over 5-15minutes. Nebulizer NEBULIZER FOR HOME USE. bismuth subsalicylate 525 mg tab Take 525 mg by mouth four times daily for 14 days. No current facility-administered medications for this visit. Objective BP 107/61 (BP Site: Left Arm, BP Position: Supine, BP Cuff Size: Large Adult) Pulse 71 Temp 36.9 ?C (98.5 ?F) (Temporal) Wt 98.9 kg (218 lb) BMI 34.14 kg/m? Physical Exam Constitutional: General: He is not in acute distress. Appearance: He is not ill-appearing or diaphoretic. HENT: Nose: Nose normal. Mouth/Throat: Mouth: Mucous membranes are moist. Pharynx: Oropharynx is clear. Cardiovascular: Rate and Rhythm: Normal rate and regular rhythm. Pulmonary: Effort: No respiratory distress. Breath sounds: Wheezing, rhonchi and rales present. Musculoskeletal: Right lower leg: No edema. Left lower leg: No edema. Lymphadenopathy: Cervical: No cervical adenopathy. Assessment and Plan 1. COPD with exacerbation (HCC) - ICD9: 491.21, ICD10: J44.1 (primary diagnosis) - Discussed medication dosage, usage, goals of therapy, and side effects. - DOXYCYCLINE HYCLATE 100 MG TABLET - PREDNISONE 10 MG TABLET - XR CHEST 2V FRONTAL/LAT 2. Interstitial pulmonary disease (HCC) - ICD9: 515, ICD10: J84.9 - DOXYCYCLINE HYCLATE 100 MG TABLET - PREDNISONE 10 MG TABLET - XR CHEST 2V FRONTAL/LAT 3. Lung bullae (HCC) - ICD9: 492.0, ICD10: J43.9 Recheck. 4. Primary hypertension - ICD9: 401.9, ICD10: I10 - Controlled Levon Corral MD [facility] 06-22-2023 Miscellaneous Notes I called Mr. Mccarthy yesterday and today to give an update on the recent Manometry results (normal), but the calls went to [facility]. He missed a virtual visit appointment yesterday. Will call him again next week. Arjun Polanco MD Gastroenterology and Hepatology fellow documented in this encounter [facility] 06-20-2023 Miscellaneous Notes Spoke with pt and information listed below given. Pt verbalizes understanding. Apt booked. Alyx Goodman LPN Patient due for follow-up, needs to be with Dr. Ellis Swann APRN.[employer] Patient has been identified by name and date of : Yes, Provider Ellis Patient phones for refill(s): Requested Prescriptions Pending Prescriptions Disp Refills albuterol HFA (VENTOLIN HFA) 90 mcg/actuation inhaler 18 g 3 Sig: Inhale 2 Puffs as instructed every 4 hours as needed. apixaban (ELIQUIS) 5 mg tab(s) 180 tablet 3 Sig: Take 1 tablet by mouth two times a day. atorvastatin (LIPITOR) 80 mg tablet 90 tablet 3 Sig: Take 1 tablet by mouth daily at bedtime. For cholesterol. gabapentin (NEURONTIN) 300 mg capsule 120 capsule 5 Sig: Take 2 capsules by mouth two times a day for 180 days. lisinopril (ZESTRIL) 40 mg tablet 90 tablet 3 Sig: Take 1 tablet by mouth once daily. levothyroxine (SYNTHROID) 137 mcg tablet 90 tablet 3 Sig: Take 1 tablet by mouth once daily. Take on empty stomach Date of last office visit in primary care: 11/26/2022 Date of next office visit in primary care: Visit date not found Last 2 Encounter Wt Readings: Date: Wt: 05/28/2023 97 kg (213 lb 13.5 oz) 05/15/2023 97 kg (213 lb 12.8 oz) Previous labs/tests for medication: Not applicable Please advise. Thank you. Sissy Lipscomb. documented in this encounter [facility] 06-12-2023 Note HNO ID: [id number] Author: Nancy Mckay RN Service: ? Author Type: Registered Nurse Type: Progress Notes Filed: 06/12/2023 3:16 PM Note Text: Name: Jennie Herman Celestina [facility]#: [id number] Date: 06/12/2023 ESOPHAGEAL MANOMETRY TEST Indication: Dysphagia Pain Assessment: Yes pain is present. LOCATION: Back pain The patient has been NPO since last evening. A local anesthetic 1 cc 2% Viscous Lidoccaine was instilled into the nares. The patient was intubated the left nares using a 36 sensor high resolution circumferential solid state manometry catheter The esophageal manometry test was completed. The patient tolerated the test without difficulty. .Nancy Mckay RN [facility] 06-12-2023 History of Present illness Narrative Name: Jennie Mccarthy [facility]#: [id number] Date: 06/12/2023 ESOPHAGEAL MANOMETRY TEST Indication: Dysphagia Pain Assessment: Yes pain is present. LOCATION: Back pain The patient has been NPO since last evening. A local anesthetic 1 cc 2% Viscous Lidoccaine was instilled into the nares. The patient was intubated the left nares using a 36 sensor high resolution circumferential solid state manometry catheter The esophageal manometry test was completed. The patient tolerated the test without difficulty. .Nancy Mckay RN documented in this encounter [facility] 06-07-2023 Note HNO ID: [id number] Author: Corie Christensen RN Service: ? Author Type: Registered Nurse Type: Progress Notes Filed: 06/07/2023 11:57 AM Note Text: [facility] Telephonic Outreach Provider Action/05/20/23 outside hospital Emergency Department visit for wrist pain - Offered the [facility] Appointment Lines: [phone], for patient to schedule follow up appointment SDOH for food and transportation updated. Patient stated Goal(s), ADLs and Falls assessments updated. Next CDM outreach after in 6 weeks per discussion with patient. Contacted for: Routine Telephonic Outreach Contact made with patient: Yes Patient identified by name and date of . Discussed care with patient Are you experiencing any new or worsening symptoms you need to talk about today? Yes Based on service order dispatcher chief, the following disposition is advised: No symptoms or symptoms present, not severe. Routed to: No Action Needed VALENTINE Education Provided this Outreach: No Corie Christensen RN June 07, 2023 11:55 AM [facility] 06-07-2023 History of Present illness Narrative CD Telephonic Outreach Provider Action/05/20/23 outside hospital Emergency Department visit for wrist pain - Offered the [facility] Appointment Lines: [phone], for patient to schedule follow up appointment SDOH for food and transportation updated. Patient stated Goal(s), ADLs and Falls assessments updated. Next CDM outreach after in 6 weeks per discussion with patient. Contacted for: Routine Telephonic Outreach Contact made with patient: Yes Patient identified by name and date of . Discussed care with patient Are you experiencing any new or worsening symptoms you need to talk about today? Yes Based on service order dispatcher chief, the following disposition is advised: No symptoms or symptoms present, not severe. Routed to: No Action Needed VALENTINE Education Provided this Outreach: No Corie Christensen RN June 07, 2023 11:55 AM CDM Telephonic Outreach Provider Action/FYI Contacted for: Routine Telephonic Outreach Contact made with patient: No, left message. Corie Christensen RN June 06, 2023 2:59 PM documented in this encounter [facility] 06-06-2023 Note HNO ID: [id number] Author: Corie Christensen RN Service: ? Author Type: Registered Nurse Type: Progress Notes Filed: 06/07/2023 11:57 AM Note Text: CDM Telephonic Outreach Provider Action/FYI Contacted for: Routine Telephonic Outreach Contact made with patient: No, left message. Corie Christensen RN June 06, 2023 2:59 PM [facility] 06-06-2023 Note Patient Outreach ([facility]) JENNIE MCCARTHY ([id number]) 1960 M Date Time Provider Department 06/06/23 CORIE CHRISTENSEN [facility] During your visit today, we recorded the following information about you: Corie Christensen RN 06/07/2023 11:57 AM Signed CDM Telephonic Outreach Provider Action/FYI Contacted for: Routine Telephonic Outreach Contact made with patient: No, left message. Corie Christensen RN June 06, 2023 2:59 PM Corie Christensen RN 06/07/2023 11:57 AM Signed CDM Telephonic Outreach Provider Action/FYI 05/20/23 outside hospital Emergency Department visit for wrist pain - Offered the [facility] Appointment Lines: [phone], for patient to schedule follow up appointment SDNE for food and transportation updated. Patient stated Goal(s), ADLs and Falls assessments updated. Next CDM outreach after in 6 weeks per discussion with patient. Contacted for: Routine Telephonic Outreach Contact made with patient: Yes Patient identified by name and date of . Discussed care with patient Are you experiencing any new or worsening symptoms you need to talk about today? Yes Based on service order dispatcher chief, the following disposition is advised: No symptoms or symptoms present, not severe. Routed to: No Action Needed VALENTINE Education Provided this Outreach: Evelyn Christensen RN June 07, 2023 11:55 AM Allergies As of Date: 06/06/2023 (No Known Allergies) Date Reviewed: 05/28/2023 Reviewed by: Marilee Batres DO - Fully Assessed Reason for Visit: CDM [Other] Cmt: Check in call Prescriptions as of 06/07/2023 - pantoprazole DR (PROTONIX) 40 mg tablet Take 1 tablet by mouth once daily. - tiotropium bromide (SPIRIVA RESPIMAT) 2.5 mcg/actuation inhaler Inhale 2 Puffs as instructed once daily. - bismuth subsalicylate 525 mg tab Take 525 mg by mouth four times daily for 14 days. - ibuprofen (MOTRIN) 800 mg tablet Take 1 tablet by mouth once daily. - gabapentin (NEURONTIN) 300 mg capsule Take 2 capsules by mouth twice daily for 180 days. - apixaban (ELIQUIS) 5 mg tab(s) Take 1 tablet by mouth twice daily. - lisinopril (ZESTRIL, PRINIVIL) 40 mg tablet Take 1 tablet by mouth once daily. - levothyroxine (SYNTHROID) 137 mcg tablet Take 1 tablet by mouth once daily. Take on empty stomach - atorvastatin (LIPITOR) 80 mg tablet Take 1 tablet by mouth daily at bedtime. For cholesterol. - albuterol HFA (VENTOLIN HFA) 90 mcg/actuation inhaler Inhale 2 Puffs as instructed every 4 hours as needed. - nitroglycerin sublingual (NITROQUICK) 0.4 mg SL tablet Dissolve 1 tablet under the tongue as needed. FOR CHEST PAIN. IF NO RELIEF CALL 911 - hydrocortisone 2.5 % cream Apply to scaly patches on face two times daily as needed for flares. Use 2 weeks on 1 week off - albuterol (PROVENTIL) 2.5 mg /3 mL (0.083 %) nebulizer solution Use 3 mL via nebulizer every 4 hours as needed for wheezing/shortness of breath. Use over 5-15minutes. - Nebulizer NEBULIZER FOR HOME USE. Problem List As Of Date 06/06/2023 Noted Resolved Esophageal reflux [K21.9] Internal hemorrhoids without mention of complic*10/24/2006 01/02/2017 Tobacco use disorder [F17.200] 10/24/2006 09/04/2011 COPD with exacerbation (HCC) [J44.1] 10/24/2006 Hypothyroidism [E03.9] 11/05/2006 GYNECOMASTIA [N62] 11/08/2006 11/04/2008 Unspecified sleep apnea [G47.30] 04/03/2007 06/09/2013 Lung bullae (HCC) [J43.9] 05/28/2007 SCREENING FOR CONDITION NOS [Z13.9] 11/21/2007 11/04/2008 Obesity, unspecified [E66.9] 11/04/2008 06/08/2013 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/12/2013 Lumbago [M54.50] 03/08/2009 Patient Noncompliance [Z91.199] 02/03/2010 Erectile dysfunction [N52.9] 02/27/2011 Pulmonary embolism [I26.99] 05/19/2011 01/06/2013 Paroxysmal atrial flutter (HCC) [I48.92] 08/20/2011 Atrial fibrillation (HCC) [I48.91] 06/03/2012 06/18/2019 Cervicalgia [M54.2] 01/15/2013 04/13/2013 Headache [R51] 01/15/2013 04/13/2013 SUMMARY [V999.95] 06/08/2013 02/03/2014 History of pulmonary embolism [Z86.711] 06/08/2013 01/02/2017 History of smoking [Z87.891] 06/08/2013 06/09/2013 Hyperlipidemia [E78.5] 06/08/2013 Atelectasis [J98.11] 06/12/2013 02/03/2014 Hypertension [I10] 06/12/2013 Hypovolemia [E86.1] 06/12/2013 06/15/2013 VANIA (obstructive sleep apnea) AHI 71 [G47.33] 12/30/2013 Obesity [E66.9] 12/30/2013 05/11/2019 Nasal congestion [R09.81] 12/30/2013 08/27/2016 Visual impairment in both eyes [H54.3] 12/30/2013 08/27/2016 Physical deconditioning, multifactorial dyspnea*02/03/2014 08/27/2016 Lumbar spondylosis [M47.816] 02/05/2014 12/31/2017 DDD (degenerative disc disease), lumbar [M51.36]02/05/2014 12/31/2017 Sciatica [M54.30] 02/24/2014 Sebaceous cyst [L72.3] 09/03/2016 01/02/2017 Bronchitis [J40] 04/04/2017 Rosacea [L71.9] 04/04/2017 Obesity, Class II, BMI 35-39.9 [E66.9] 04/02/201803/09 (more content not included)... [facility] 05-28-2023 Note HNO ID: [id number] Author: Marilee Batres, DO Service: ? Author Type: Physician Type: Progress Notes Filed: 05/28/2023 2:07 PM Note Text: [facility] OUTPATIENT VISIT DATE May 28, 2023 PRIMARY CARE PHYSICIAN: Levon Corral [address] [place] [address] HISTORY OF PRESENT ILLNESS: Mr. Mccarthy is a 62 year old male. Patient presents for cardiovascular evaluation and treatment options prior to potential knee surgery. Patient notes dyspnea occurring with exertion abating with rest. He denies chest discomfort, orthopnea, paroxysmal nocturnal dyspnea, palpitations, near-syncope or syncope. The patient is and lives at home with his . He is a current smoker and nondrinker. He is retired. The patient recently underwent telemetry monitoring which showed reasonable heart rate variability and no extreme bradycardia necessitating consideration for EP evaluation/pacemaker Cardiac risk factors: Age, gender, hypertension, hyperlipidemia Impression: 1. Preoperative risk assessment 2. Dyspnea exertion 3. History of paroxysmal atrial flutter 4. Hypertension 5. Hyperlipidemia 6. Ascending aortic dilatation 7. History of AAA repair with endovascular stent graft 8. Obstructive sleep apnea 9. Long-term anticoagulation with Eliquis 10. History of COPD 11. History of PE 11. History of bradycardia for which he has been kept off of rate controlling medications PLAN AND RECOMMENDATIONS: The patient has dyspnea with multiple cardiovascular risk factors and history of vascular disease for which he will need nuclear stress imaging for risk stratification. This will be a Lexiscan due to his relative inability to walk due to his knee and back pain. In the interim we have made no additions or changes. Heart rate, blood pressure recent cholesterol profile otherwise favorable. He will need yearly evaluations of his ascending aorta with either echocardiography or CT scanning. In the absence of findings on nuclear stress imaging, he would be acceptable risk to proceed with knee replacement surgery should that be the case. Tobacco cessation counseling was given. Generalized dietary and lifestyle modification was otherwise reemphasized to facilitate risk factor reduction. Will look forward to reevaluating him in 1 years time regardless. Vitals: BP 126/74 Pulse (!) 51 Ht 170.2 cm (5' 7 ) Wt 97 kg (213 lb 13.5 oz) SpO2 96% BMI 33.49 kg/m? Physical Exam Vitals reviewed. Constitutional: General: He is not in acute distress. Appearance: Normal appearance. He is well-developed. He is not diaphoretic. HENT: Head: Normocephalic and atraumatic. Right Ear: External ear normal. Left Ear: External ear normal. Nose: Nose normal. Eyes: General: No scleral icterus. Right eye: No discharge. Left eye: No discharge. Pupils: Pupils are equal, round, and reactive to light. Neck: Thyroid: No thyromegaly. Vascular: No carotid bruit or JVD. Cardiovascular: Rate and Rhythm: Normal rate and regular rhythm. Heart sounds: No murmur heard. No friction rub. No gallop. Pulmonary: Effort: Pulmonary effort is normal. No respiratory distress. Breath sounds: Normal breath sounds. No wheezing or rales. Abdominal: General: Bowel sounds are normal. Palpations: Abdomen is soft. Musculoskeletal: General: Normal range of motion. Cervical back: Neck supple. Skin: General: Skin is warm and dry. Capillary Refill: Capillary refill takes less than 2 seconds. Coloration: Skin is not pale. Neurological: Mental Status: He is alert and oriented to person, place, and time. Cranial Nerves: No cranial nerve deficit. Psychiatric: Mood and Affect: Mood normal. Mood is not anxious or depressed. Behavior: Behavior normal. Thought Content: Thought content normal. Judgment: Judgment normal. Review of Systems Constitutional: Negative for activity change, appetite change, fatigue and unexpected weight change. HENT: Negative for ear pain and trouble swallowing. Eyes: Negative for pain and visual disturbance. Respiratory: Negative for chest tightness and shortness of breath. Cardiovascular: Negative for chest pain, palpitations and leg swelling. Gastrointestinal: Negative for abdominal pain and blood in stool. Endocrine: Negative for cold intolerance and heat intolerance. Genitourinary: Negative for dysuria, hematuria and scrotal swelling. Musculoskeletal: Positive for arthralgias and back pain. Negative for myalgias. Skin: Negative for pallor and rash. Allergic/Immunologic: Negative for immunocompromised state. Neurological: Negative for dizziness, syncope and light-headedness. Hematological: Negative for adenopathy. Does not bruise/bleed easily. Psychiatric/Behavioral: Negative for sleep disturbance. The patient is not nerv (more content not included)... [facility] 05-28-2023 History of Present illness Narrative Images from the original note were not included. [facility] OUTPATIENT VISIT DATE May 28, 2023 PRIMARY CARE PHYSICIAN: Levon Corral [address] [id number] HISTORY OF PRESENT ILLNESS: Mr. Mccarthy is a 62 year old male. Patient presents for cardiovascular evaluation and treatment options prior to potential knee surgery. Patient notes dyspnea occurring with exertion abating with rest. He denies chest discomfort, orthopnea, paroxysmal nocturnal dyspnea, palpitations, near-syncope or syncope. The patient is and lives at home with his . He is a current smoker and nondrinker. He is retired. The patient recently underwent telemetry monitoring which showed reasonable heart rate variability and no extreme bradycardia necessitating consideration for EP evaluation/pacemaker Cardiac risk factors: Age, gender, hypertension, hyperlipidemia Impression: 1. Preoperative risk assessment 2. Dyspnea exertion 3. History of paroxysmal atrial flutter 4. Hypertension 5. Hyperlipidemia 6. Ascending aortic dilatation 7. History of AAA repair with endovascular stent graft 8. Obstructive sleep apnea 9. Long-term anticoagulation with Eliquis 10. History of COPD 11. History of PE 11. History of bradycardia for which he has been kept off of rate controlling medications PLAN AND RECOMMENDATIONS: The patient has dyspnea with multiple cardiovascular risk factors and history of vascular disease for which he will need nuclear stress imaging for risk stratification. This will be a Lexiscan due to his relative inability to walk due to his knee and back pain. In the interim we have made no additions or changes. Heart rate, blood pressure recent cholesterol profile otherwise favorable. He will need yearly evaluations of his ascending aorta with either echocardiography or CT scanning. In the absence of findings on nuclear stress imaging, he would be acceptable risk to proceed with knee replacement surgery should that be the case. Tobacco cessation counseling was given. Generalized dietary and lifestyle modification was otherwise reemphasized to facilitate risk factor reduction. Will look forward to reevaluating him in 1 years time regardless. Vitals: BP 126/74 Pulse (!) 51 Ht 170.2 cm (5' 7 ) Wt 97 kg (213 lb 13.5 oz) SpO2 96% BMI 33.49 kg/m Physical Exam Vitals reviewed. Constitutional: General: He is not in acute distress. Appearance: Normal appearance. He is well-developed. He is not diaphoretic. HENT: Head: Normocephalic and atraumatic. Right Ear: External ear normal. Left Ear: External ear normal. Nose: Nose normal. Eyes: General: No scleral icterus. Right eye: No discharge. Left eye: No discharge. Pupils: Pupils are equal, round, and reactive to light. Neck: Thyroid: No thyromegaly. Vascular: No carotid bruit or JVD. Cardiovascular: Rate and Rhythm: Normal rate and regular rhythm. Heart sounds: No murmur heard. No friction rub. No gallop. Pulmonary: Effort: Pulmonary effort is normal. No respiratory distress. Breath sounds: Normal breath sounds. No wheezing or rales. Abdominal: General: Bowel sounds are normal. Palpations: Abdomen is soft. Musculoskeletal: General: Normal range of motion. Cervical back: Neck supple. Skin: General: Skin is warm and dry. Capillary Refill: Capillary refill takes less than 2 seconds. Coloration: Skin is not pale. Neurological: Mental Status: He is alert and oriented to person, place, and time. Cranial Nerves: No cranial nerve deficit. Psychiatric: Mood and Affect: Mood normal. Mood is not anxious or depressed. Behavior: Behavior normal. Thought Content: Thought content normal. Judgment: Judgment normal. Review of Systems Constitutional: Negative for activity change, appetite change, fatigue and unexpected weight change. HENT: Negative for ear pain and trouble swallowing. Eyes: Negative for pain and visual disturbance. Respiratory: Negative for chest tightness and shortness of breath. Cardiovascular: Negative for chest pain, palpitations and leg swelling. Gastrointestinal: Negative for abdominal pain and blood in stool. Endocrine: Negative for cold intolerance and heat intolerance. Genitourinary: Negative for dysuria, hematuria and scrotal swelling. Musculoskeletal: Positive for arthralgias and back pain. Negative for myalgias. Skin: Negative for pallor and rash. Allergic/Immunologic: Negative for immunocompromised state. Neurological: Negative for dizziness, syncope and light-headedness. Hematological: Negative for adenopathy. Does not bruise/bleed easily. Psychiatric/Behavioral: Negative for sleep disturbance. The patient is not nervous/anxious. PAST MEDICAL HISTORY Diagnosis Date AAA (abdominal aortic aneurysm) (HCC) 03/02/2009 Atrial fibrillation (HCC) Atrial flutter (HCC) 08/20/2011 Chronic cholecystitis Coronary artery disease DDD (degenerative disc disease), lumbar 02/05/2014 Emphysematous bleb (HCC) 05/28/2007 Right upper lung. Erectile dysfunction 02/27/2011 Esophageal reflux Gastroesophageal reflux Fatty liver GYNECOMASTIA 11/08/2006 Hemorrhage of rectum and anus 12/25/2009 bleeding hemorrhoids Hiatal hernia Hypertension 06/12/2013 Obesity, unspecified 11/04/2008 Obstructive sleep apnea CPAP Other and unspecified hyperlipidemia 11/05/2006 Other emphysema (HCC) Emphysema Pulmonary embolism (HCC) 05/19/2011 Substance abuse (HCC) Tobacco use disorder 10/24/2006 ex-smoker Unspecified constipation Constipation Unspecified hypothyroidism 11/05/2006 PAST SURGICAL HISTORY Procedure Laterality Date COLONOSCOPY 2006 COLONOSCOPY FLX DX W/COLLJ SPEC WHEN PFRMD 12/26/2009 DIR RPR ANEURYSM ABDOMINAL AORTA 06/12/2013 Abd Aortic Aneurysm Repair, Endovascular EGD W/O [facility] SPEC VARICIES INJ 02/08/2023 ENDOVAS REPAIR ILIAC ANEURYSM Right 01/15/2020 R hypogastric coiling, R common femoral access FOCAL LASER RETINAL TUMOR OS (LEFT EYE) Left 10/2019 Retinal Tear HEMORRHOIDECTOMY INTERNAL RUBBER BAND LIGATIONS 11/2004 LAPS SURG CHOLECYSTECTOMY W/CHOLANGIOGRAPHY 07/07/2007 TONSILLECTOMY PRIMARY/SECONDARY <AGE 11 1972 Tonsillectomy Social History Tobacco Use Smoking status: Every Day Packs/day: 0.50 Years: 46.00 Additional pack years: 0.00 Total pack years: 23.00 Types: Cigarettes Start date: 07/08/1973 Smokeless tobacco: Never Tobacco comments: Currently 0.5ppd 10/12/22 Vaping Use Vaping Use: Never used Substance Use Topics Alcohol use: No Drug use: Yes Types: Marijuana Comment: Off and on. FAMILY HISTORY Problem Relation Age of Onset other (Pneumonia) Mother age 72 other (aneursm repair) Mother Prostate Cancer Father CArdiomegaly ( age 72) Aneurysm Brother Lung Cancer Brother Lung Cancer ( age 60's) Heart Brother HI x 2 other (aneurysm repair) Brother ALLERGIES No Known Allergies CURRENT MEDICATIONS: bismuth subsalicylate 525 mg tab Take 525 mg by mouth four times daily for 14 days. gabapentin (NEURONTIN) 300 mg capsule Take 2 capsules by mouth twice daily for [address] (PROTONIX) 40 mg tablet Take 1 tablet by mouth once daily. tiotropium bromide (SPIRIVA RESPIMAT) 2.5 mcg/actuation inhaler Inhale 2 Puffs as instructed once daily. ibuprofen (MOTRIN) 800 mg tablet Take 1 tablet by mouth once daily. apixaban (ELIQUIS) 5 mg tab(s) Take 1 tablet by mouth twice daily. lisinopril (ZESTRIL, PRINIVIL) 40 mg tablet Take 1 tablet by mouth once daily. levothyroxine (SYNTHROID) 137 mcg tablet Take 1 tablet by mouth once daily. Take on empty stomach atorvastatin (LIPITOR) 80 mg tablet Take 1 tablet by mouth daily at bedtime. For cholesterol. albuterol HFA (VENTOLIN HFA) 90 mcg/actuation inhaler Inhale 2 Puffs as instructed every 4 hours as needed. hydroCHLOROthiazide (HYDRODIURIL, ESIDRIX) 12.5 mg capsule Take 1 capsule by mouth once daily. (Patient not taking: Reported on 05/15/2023) tiotropium bromide (SPIRIVA RESPIMAT) 2.5 mcg/actuation inhaler Inhale 2 Puffs as instructed once daily. (Patient not taking: Reported on 05/15/2023) nitroglycerin sublingual (NITROQUICK) 0.4 mg SL tablet Dissolve 1 tablet under the tongue as needed. FOR CHEST PAIN. IF NO RELIEF CALL 911 hydrocortisone 2.5 % cream Apply to scaly patches on face two times daily as needed for flares. Use 2 weeks on 1 week off albuterol (PROVENTIL) 2.5 mg /3 mL (0.083 %) nebulizer solution Use 3 mL via nebulizer every 4 hours as needed for wheezing/shortness of breath. Use over 5-15minutes. Nebulizer NEBULIZER FOR HOME USE. ECG: SR 1st degree AVB Marilee Batres DO, FACC, FACOI Social Sciences Department Chair, [facility] Ambulatory Cardiology Social Sciences Department Chair, [facility] Cardiac Rehabilitation Social Sciences Department Chair, [facility] Card[facility] Rehabilitation Social Sciences Department Chair, [facility]est[facility] Social Sciences Department Chair, [facility] Ambulatory Cardiology Clinical Trench Digger Profressor of Medicine, [facility] Staff Spool Tender, Rom and Edna Dominguez Department of Cardiovascular Medicine/Heart and Vascular [place], [facility] Please note: This note has been produced using speech recognition software and may contain errors related to that system including renard, punctuation, spelling, words, gender and phrases that may be inappropriate. documented in this encounter [facility] 05-15-2023 Note HNO ID: [id number] Author: Magui Lopez PA-C Service: ? Author Type: Physician Trench Digger Type: Progress Notes Filed: 05/15/2023 6:24 PM Note Text: This note was created using Post.Bid.Shipter. Subjective Jennie Mccarthy is a 62 year old male. HPI Presents with right wrist pain over the past 2 weeks. He states he was carrying something heavy when it slipped and he twisted his wrist. Since then he has had pain with pulling his hand out. He denies weakness or numbness. Sometimes goes up his forearm. No problems with the wrist previously. Review of Systems Constitutional: Negative. HENT: Negative. Respiratory: Negative. Cardiovascular: Negative. Gastrointestinal: Negative. Musculoskeletal: Right wrist pain All other systems reviewed and are negative. PAST MEDICAL HISTORY Diagnosis Date AAA (abdominal aortic aneurysm) ([facility]) 03/02/2009 Atrial fibrillation ([facility]) Atrial flutter ([facility]) 08/20/2011 Chronic cholecystitis Coronary artery disease DDD (degenerative disc disease), lumbar 02/05/2014 Emphysematous bleb ([facility]) 05/28/2007 Right upper lung. Erectile dysfunction 02/27/2011 Esophageal reflux Gastroesophageal reflux Fatty liver GYNECOMASTIA 11/08/2006 Hemorrhage of rectum and anus 12/25/2009 bleeding hemorrhoids Hiatal hernia Hypertension 06/12/2013 Obesity, unspecified 11/04/2008 Obstructive sleep apnea CPAP Other and unspecified hyperlipidemia 11/05/2006 Other emphysema ([facility]) Emphysema Pulmonary embolism ([facility]) 05/19/2011 Substance abuse ([facility]) Tobacco use disorder 10/24/2006 ex-smoker Unspecified constipation Constipation Unspecified hypothyroidism 11/05/2006 Current Outpatient Medications Medication Sig Dispense Refill pantoprazole DR (PROTONIX) 40 mg tablet Take 1 tablet by mouth once daily. 90 tablet 1 tiotropium bromide (SPIRIVA RESPIMAT) 2.5 mcg/actuation inhaler Inhale 2 Puffs as instructed once daily. 1 Each 11 ibuprofen (MOTRIN) 800 mg tablet Take 1 tablet by mouth once daily. 30 tablet 2 apixaban (ELIQUIS) 5 mg tab(s) Take 1 tablet by mouth twice daily. 180 tablet 3 lisinopril (ZESTRIL, PRINIVIL) 40 mg tablet Take 1 tablet by mouth once daily. 90 tablet 3 levothyroxine (SYNTHROID) 137 mcg tablet Take 1 tablet by mouth once daily. Take on empty stomach 90 tablet 3 atorvastatin (LIPITOR) 80 mg tablet Take 1 tablet by mouth daily at bedtime. For cholesterol. 90 tablet 3 albuterol HFA (VENTOLIN HFA) 90 mcg/actuation inhaler Inhale 2 Puffs as instructed every 4 hours as needed. 18 g 3 nitroglycerin sublingual (NITROQUICK) 0.4 mg SL tablet Dissolve 1 tablet under the tongue as needed. FOR CHEST PAIN. IF NO RELIEF CALL 911 25 tablet 1 hydrocortisone 2.5 % cream Apply to scaly patches on face two times daily as needed for flares. Use 2 weeks on 1 week off 30 g 2 albuterol (PROVENTIL) 2.5 mg /3 mL (0.083 %) nebulizer solution Use 3 mL via nebulizer every 4 hours as needed for wheezing/shortness of breath. Use over 5-15minutes. 3 mL 0 Nebulizer NEBULIZER FOR HOME USE. 1 Kit 0 bismuth subsalicylate 525 mg tab Take 525 mg by mouth four times daily for 14 days. 56 tablet 0 gabapentin (NEURONTIN) 300 mg capsule Take 2 capsules by mouth twice daily for 180 days. 120 capsule 5 hydroCHLOROthiazide (HYDRODIURIL, ESIDRIX) 12.5 mg capsule Take 1 capsule by mouth once daily. (Patient not taking: Reported on 05/15/2023) 90 capsule 3 tiotropium bromide (SPIRIVA RESPIMAT) 2.5 mcg/actuation inhaler Inhale 2 Puffs as instructed once daily. (Patient not taking: Reported on 05/15/2023) 1 Inhaler 5 No current facility-administered medications for this visit. PAST SURGICAL HISTORY Procedure Laterality Date COLONOSCOPY 2005 COLONOSCOPY FLX DX W/COLLJ SPEC WHEN PFRMD 12/26/2009 DIR RPR ANEURYSM ABDOMINAL AORTA 06/12/2013 Abd Aortic Aneurysm Repair, Endovascular EGD W/O [facility] SPEC VARICIES INJ 02/08/2023 ENDOVAS REPAIR ILIAC ANEURYSM Right 01/15/2020 R hypogastric coiling, R common femoral access FOCAL LASER RETINAL TUMOR OS (LEFT EYE) Left 10/2019 Retinal Tear HEMORRHOIDECTOMY INTERNAL RUBBER BAND LIGATIONS 11/2004 LAPS SURG CHOLECYSTECTOMY W/CHOLANGIOGRAPHY 07/07/2007 TONSILLECTOMY PRIMARY/SECONDARY Tonsillectomy FAMILY HISTORY Problem Relation Age of Onset other (Pneumonia) Mother age 72 other (aneursm repair) Mother Prostate Cancer Father CArdiomegaly ( age 72) Aneurysm Brother Lung Cancer Brother Lung Cancer ( age 60's) Heart Brother HI x 2 other (aneurysm repair) Brother Social History Tobacco Use Smoking status: Every Day Packs/day: 0.50 Years: 46.00 Additional pack years: 0.00 Total pack years: 23.00 Types: Cigarettes Start date: 07/08/1973 Smokeless tobacco: Never Tobacco comments: Currently 0.5ppd 10/12/22 Vaping Use Vaping Use: Never used Substance Use Topics Alcohol use: No Drug use: Yes Types: Marijuana Comment: Off and on. Objective BP 120/78 P (more content not included)... [facility] 05-15-2023 Note HNO ID: [id number] Author: Rosana Deluca RT(R) Service: ? Author Type: Tensioning Machine Operator Type: Progress Notes Filed: 05/15/2023 5:15 PM Note Text: Radiology Service Progress Note PATIENT NAME: eJnnie Mccarthy DATE OF SERVICE: May 15, 2023 TIME: 5:03 PM PATIENT IDENTITY VERIFICATION COMPLETED USING TWO (2) IDENTIFIERS: Name and Date of confirmed by patient verbally. FALL SCREENING: Has the patient had 2 falls in the last year or 1 fall with injury or currently using an Ambulatory Assistive Device (Walker, Cane, Wheelchair, Crutches, etc.)? No PATIENT GENDER DATA: Male PATIENT RELEVANT IMPLANT DATA REVIEWED: Yes RADIOLOGY DEPARTMENT: General X-ray: Exam(s) Completed: Upper Extremity X-Ray(s): Wrist, right PERIPHERAL IV DATA: Not applicable SIGNED BY: RT Irina(R) May 15, 2023 5:03 PM [facility] 05-15-2023 History of Present illness Narrative This note was created using Post.Bid.Shipter. Subjective Jennie Mccarthy is a 62 year old male. HPI Presents with right wrist pain over the past 2 weeks. He states he was carrying something heavy when it slipped and he twisted his wrist. Since then he has had pain with pulling his hand out. He denies weakness or numbness. Sometimes goes up his forearm. No problems with the wrist previously. Review of Systems Constitutional: Negative. HENT: Negative. Respiratory: Negative. Cardiovascular: Negative. Gastrointestinal: Negative. Musculoskeletal: Right wrist pain All other systems reviewed and are negative. PAST MEDICAL HISTORY Diagnosis Date AAA (abdominal aortic aneurysm) (HCC) 03/02/2009 Atrial fibrillation (HCC) Atrial flutter (HCC) 08/20/2011 Chronic cholecystitis Coronary artery disease DDD (degenerative disc disease), lumbar 02/05/2014 Emphysematous bleb (HCC) 05/28/2007 Right upper lung. Erectile dysfunction 02/27/2011 Esophageal reflux Gastroesophageal reflux Fatty liver GYNECOMASTIA 11/08/2006 Hemorrhage of rectum and anus 12/25/2009 bleeding hemorrhoids Hiatal hernia Hypertension 06/12/2013 Obesity, unspecified 11/04/2008 Obstructive sleep apnea CPAP Other and unspecified hyperlipidemia 11/05/2006 Other emphysema ([facility]) Emphysema Pulmonary embolism ([facility]) 05/19/2011 Substance abuse ([facility]) Tobacco use disorder 10/24/2006 ex-smoker Unspecified constipation Constipation Unspecified hypothyroidism 11/05/2006 Current Outpatient Medications Medication Sig Dispense Refill pantoprazole DR (PROTONIX) 40 mg tablet Take 1 tablet by mouth once daily. 90 tablet 1 tiotropium bromide (SPIRIVA RESPIMAT) 2.5 mcg/actuation inhaler Inhale 2 Puffs as instructed once daily. 1 Each 11 ibuprofen (MOTRIN) 800 mg tablet Take 1 tablet by mouth once daily. 30 tablet 2 apixaban (ELIQUIS) 5 mg tab(s) Take 1 tablet by mouth twice daily. 180 tablet 3 lisinopril (ZESTRIL, PRINIVIL) 40 mg tablet Take 1 tablet by mouth once daily. 90 tablet 3 levothyroxine (SYNTHROID) 137 mcg tablet Take 1 tablet by mouth once daily. Take on empty stomach 90 tablet 3 atorvastatin (LIPITOR) 80 mg tablet Take 1 tablet by mouth daily at bedtime. For cholesterol. 90 tablet 3 albuterol HFA (VENTOLIN HFA) 90 mcg/actuation inhaler Inhale 2 Puffs as instructed every 4 hours as needed. 18 g 3 nitroglycerin sublingual (NITROQUICK) 0.4 mg SL tablet Dissolve 1 tablet under the tongue as needed. FOR CHEST PAIN. IF NO RELIEF CALL 911 25 tablet 1 hydrocortisone 2.5 % cream Apply to scaly patches on face two times daily as needed for flares. Use 2 weeks on 1 week off 30 g 2 albuterol (PROVENTIL) 2.5 mg /3 mL (0.083 %) nebulizer solution Use 3 mL via nebulizer every 4 hours as needed for wheezing/shortness of breath. Use over 5-15minutes. 3 mL 0 Nebulizer NEBULIZER FOR HOME USE. 1 Kit 0 bismuth subsalicylate 525 mg tab Take 525 mg by mouth four times daily for 14 days. 56 tablet 0 gabapentin (NEURONTIN) 300 mg capsule Take 2 capsules by mouth twice daily for 180 days. 120 capsule 5 hydroCHLOROthiazide (HYDRODIURIL, ESIDRIX) 12.5 mg capsule Take 1 capsule by mouth once daily. (Patient not taking: Reported on 05/15/2023) 90 capsule 3 tiotropium bromide (SPIRIVA RESPIMAT) 2.5 mcg/actuation inhaler Inhale 2 Puffs as instructed once daily. (Patient not taking: Reported on 05/15/2023) 1 Inhaler 5 No current facility-administered medications for this visit. PAST SURGICAL HISTORY Procedure Laterality Date COLONOSCOPY 2005 COLONOSCOPY FLX DX W/COLLJ SPEC WHEN PFRMD 12/26/2009 DIR RPR ANEURYSM ABDOMINAL AORTA 06/12/2013 Abd Aortic Aneurysm Repair, Endovascular EGD W/O [facility] SPEC VARICIES INJ 02/08/2023 ENDOVAS REPAIR ILIAC ANEURYSM Right 01/15/2020 R hypogastric coiling, R common femoral access FOCAL LASER RETINAL TUMOR OS (LEFT EYE) Left 10/2019 Retinal Tear HEMORRHOIDECTOMY INTERNAL RUBBER BAND LIGATIONS 11/2004 LAPS SURG CHOLECYSTECTOMY W/CHOLANGIOGRAPHY 07/07/2007 TONSILLECTOMY PRIMARY/SECONDARY <AGE 12 1972 Tonsillectomy FAMILY HISTORY Problem Relation Age of Onset other (Pneumonia) Mother age 72 other (aneursm repair) Mother Prostate Cancer Father CArdiomegaly ( age 72) Aneurysm Brother Lung Cancer Brother Lung Cancer ( age 60's) Heart Brother HI x 2 other (aneurysm repair) Brother Social History Tobacco Use Smoking status: Every Day Packs/day: 0.50 Years: 46.00 Additional pack years: 0.00 Total pack years: 23.00 Types: Cigarettes Start date: 07/08/1973 Smokeless tobacco: Never Tobacco comments: Currently 0.5ppd 10/12/22 Vaping Use Vaping Use: Never used Substance Use Topics Alcohol use: No Drug use: Yes Types: Marijuana Comment: Off and on. Objective BP 120/78 Pulse 70 Temp 36.9 C (98.4 F) (Tympanic) Resp 16 Wt 97 kg (213 lb 12.8 oz) SpO2 96% BMI 32.51 kg/m Physical Exam Vitals reviewed. Constitutional: Appearance: Normal appearance. HENT: Head: Normocephalic and atraumatic. Musculoskeletal: Comments: Oj of the right wrist reveals tenderness to palpation to the distal radial area and the first carpometacarpal joint with pain on flexion of the hand. No obvious swelling or bruising. Radial pulse 2+. Normal hand grasp strength. Skin: General: Skin is warm and dry. Neurological: Mental Status: He is alert. Assessment and Plan ASSESSMENT/PLAN: 1. Primary osteoarthritis of first carpometacarpal joint of right hand - ICD9: 715.14, ICD10: M18.11 (primary diagnosis) X-rays show arthritis of the first CMC joint. I feel patient has flared this up as well as having a forearm strain/tendinitis. I did place him in a thumb spica splint preformed. Prednisone sent for 5 days. Discussed rest, ice, Tylenol. Follow-up with PCP if not improving. Patient agreeable - XR WRIST INJURY 4V PA/LAT/OBL/SCAPH RIGHT 2. Forearm tendonitis - ICD9: 727.05, ICD10: M77.8 Magui Lopez PA-C documented in this encounter [facility] 05-10-2023 Note HNO ID: [id number] Author: Arjun Polanco MD Service: ? Author Type: Fellow Type: Progress Notes Filed: 05/10/2023 12:14 PM Note Text: DEPARTMENT OF GASTROENTEROLOGY - FOLLOW UP VISIT HISTORY OF PRESENT ILLNESS Jnenie Mccarthy is a 62 year old male who presents today for follow up of dysphagia and H.pylori treatment. He was initially seen by me on 02/01/23 when he complained of chronic dysphagia to solids, liquids and pills for 3 years. Dysphagia was associated with odynophagia, choking and eructations. 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 He was seen by ENT prior to the visit and had normal flexible laryngoscopy. EGD, MBS, Barium esophagram were ordered which didn't show possible etiologies of dysphagia. Patient was seen by Thoracic surgery for a large upper lobe bulla, which was thought to be non-contributory to his dysphagia based on no extrinsic compression in the CT and esophagrams. EGD with biopsies showed positive H.pylori, and patient subsequently started Bismuth quadruple therapy on 02/16 (02/16-02/24, 03/07-03/12, interrupted due to his ED visit but finished 14-day course). He returned to clinic on 03/08 when he reported moderate improvement of dysphagia. Esophageal manometry was ordered to complete the work-up. Since the last visit: H. Pylori stool Ag was negative (05/04/2023). He states he still has occasional dysphagia to solids and liquids (every 1-2 weeks), but not to pills. Reports having to ruminate, re-chew, and re-swallow. States he sometimes needs to eat meals very quickly (in ~5 min) and doesn't chew foods well. Reports his upper denture fits well. States the above symptoms are ~70% better after H.pylori treatment. He relates his acid reflux has been worse after discontinuing PPI before the HP stool Ag test. He still denies nausea, hematochezia, abdominal pain, diarrhea, constipation, weight loss, hematochezia, melena. He recently received doxycycline and Medrol dose pack from pulmonology due to his SOB and congestion. Esophageal manometry hasn't been done. Current Outpatient Medications Medication Sig Dispense Refill tiotropium bromide (SPIRIVA RESPIMAT) 2.5 mcg/actuation inhaler Inhale 2 Puffs as instructed once daily. 1 Each 11 ibuprofen (MOTRIN) 800 mg tablet Take 1 tablet by mouth once daily. 30 tablet 2 apixaban (ELIQUIS) 5 mg tab(s) Take 1 tablet by mouth twice daily. 180 tablet 3 lisinopril (ZESTRIL, PRINIVIL) 40 mg tablet Take 1 tablet by mouth once daily. 90 tablet 3 levothyroxine (SYNTHROID) 137 mcg tablet Take 1 tablet by mouth once daily. Take on empty stomach 90 tablet 3 atorvastatin (LIPITOR) 80 mg tablet Take 1 tablet by mouth daily at bedtime. For cholesterol. 90 tablet 3 albuterol HFA (VENTOLIN HFA) 90 mcg/actuation inhaler Inhale 2 Puffs as instructed every 4 hours as needed. 18 g 3 nitroglycerin sublingual (NITROQUICK) 0.4 mg SL tablet Dissolve 1 tablet under the tongue as needed. FOR CHEST PAIN. IF NO RELIEF CALL 911 25 tablet 1 hydrocortisone 2.5 % cream Apply to scaly patches on face two times daily as needed for flares. Use 2 weeks on 1 week off 30 g 2 albuterol (PROVENTIL) 2.5 mg /3 mL (0.083 %) nebulizer solution Use 3 mL via nebulizer every 4 hours as needed for wheezing/shortness of breath. Use over 5-15minutes. 3 mL 0 Nebulizer NEBULIZER FOR HOME USE. [address] (PROTONIX) 40 mg tablet Take 1 tablet by mouth once daily. 90 tablet 1 bismuth subsalicylate 525 mg tab Take 525 mg by mouth four times daily for 14 days. 56 tablet 0 gabapentin (NEURONTIN) 300 mg capsule Take 2 capsules by mouth twice daily for 180 days. 120 capsule 5 hydroCHLOROthiazide (HYDRODIURIL, ESIDRIX) 12.5 mg capsule Take 1 capsule by mouth once daily. (Patient not taking: Reported on 04/23/2023) 90 capsule 3 tiotropium bromide (SPIRIVA RESPIMAT) 2.5 mcg/actuation inhaler Inhale 2 Puffs as instructed once daily. (Patient not taking: Reported on 04/23/2023) 1 Inhaler 5 No current facility-administered medications for this visit. ALLERGIES No Known Allergies PAST MEDICAL HISTORY PAST MEDICAL HISTORY Diagnosis Date AAA (abdominal aortic aneurysm) (HCC) 03/02/2009 Atrial fibrillation (HCC) Atrial flutter (HCC) 08/20/2011 Chronic cholecystitis Coronary artery disease DDD (degenerative disc disease), lumbar 02/05/2014 Emphysematous bleb (HCC) 05/28/2007 Right upper lung. Erectile dysfunction 02/27/2011 Esophageal reflux Gastroesophageal reflux Fatty liver GYNECOMASTIA 11/08/2006 Hemorrhage of rectum and anus 12/25/2009 bleeding hemorrhoids Hiatal hernia Hypertension 06/12/2013 Obesity, unspecified 11/04/2008 Obstructive sleep apnea CPAP Other and unspecified hyperlipidemia 11/05/2006 Other emphysema (HCC) Emphysem (more content not included)... [facility] 05-10-2023 Instructions Arjun Polanco MD - 05/10/2023 9:36 AM EDT -Please restart taking Protonix 40mg, ideally 30 minutes before your first meal -Please schedule esophageal manometry test before our next visit documented in this encounter [facility] 05-10-2023 History of Present illness Narrative DEPARTMENT OF GASTROENTEROLOGY - FOLLOW UP VISIT HISTORY OF PRESENT ILLNESS Jennie Mccarthy is a 62 year old male who presents today for follow up of dysphagia and H.pylori treatment. He was initially seen by me on 02/01/23 when he complained of chronic dysphagia to solids, liquids and pills for 3 years. Dysphagia was associated with odynophagia, choking and eructations. 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 He was seen by ENT prior to the visit and had normal flexible laryngoscopy. EGD, MBS, Barium esophagram were ordered which didn't show possible etiologies of dysphagia. Patient was seen by Thoracic surgery for a large upper lobe bulla, which was thought to be non-contributory to his dysphagia based on no extrinsic compression in the CT and esophagrams. EGD with biopsies showed positive H.pylori, and patient subsequently started Bismuth quadruple therapy on 02/16 (02/16-02/24, 03/07-03/12, interrupted due to his ED visit but finished 14-day course). He returned to clinic on 03/08 when he reported moderate improvement of dysphagia. Esophageal manometry was ordered to complete the work-up. Since the last visit: H. Pylori stool Ag was negative (05/04/2023). He states he still has occasional dysphagia to solids and liquids (every 1-2 weeks), but not to pills. Reports having to ruminate, re-chew, and re-swallow. States he sometimes needs to eat meals very quickly (in ~5 min) and doesn't chew foods well. Reports his upper denture fits well. States the above symptoms are ~70% better after H.pylori treatment. He relates his acid reflux has been worse after discontinuing PPI before the HP stool Ag test. He still denies nausea, hematochezia, abdominal pain, diarrhea, constipation, weight loss, hematochezia, melena. He recently received doxycycline and Medrol dose pack from pulmonology due to his SOB and congestion. Esophageal manometry hasn't been done. Current Outpatient Medications Medication Sig Dispense Refill tiotropium bromide (SPIRIVA RESPIMAT) 2.5 mcg/actuation inhaler Inhale 2 Puffs as instructed once daily. 1 Each 11 ibuprofen (MOTRIN) 800 mg tablet Take 1 tablet by mouth once daily. 30 tablet 2 apixaban (ELIQUIS) 5 mg tab(s) Take 1 tablet by mouth twice daily. 180 tablet 3 lisinopril (ZESTRIL, PRINIVIL) 40 mg tablet Take 1 tablet by mouth once daily. 90 tablet 3 levothyroxine (SYNTHROID) 137 mcg tablet Take 1 tablet by mouth once daily. Take on empty stomach 90 tablet 3 atorvastatin (LIPITOR) 80 mg tablet Take 1 tablet by mouth daily at bedtime. For cholesterol. 90 tablet 3 albuterol HFA (VENTOLIN HFA) 90 mcg/actuation inhaler Inhale 2 Puffs as instructed every 4 hours as needed. 18 g 3 nitroglycerin sublingual (NITROQUICK) 0.4 mg SL tablet Dissolve 1 tablet under the tongue as needed. FOR CHEST PAIN. IF NO RELIEF CALL 911 25 tablet 1 hydrocortisone 2.5 % cream Apply to scaly patches on face two times daily as needed for flares. Use 2 weeks on 1 week off 30 g 2 albuterol (PROVENTIL) 2.5 mg /3 mL (0.083 %) nebulizer solution Use 3 mL via nebulizer every 4 hours as needed for wheezing/shortness of breath. Use over 5-15minutes. 3 mL 0 Nebulizer NEBULIZER FOR HOME USE. [address] (PROTONIX) 40 mg tablet Take 1 tablet by mouth once daily. 90 tablet 1 bismuth subsalicylate 525 mg tab Take 525 mg by mouth four times daily for 14 days. 56 tablet 0 gabapentin (NEURONTIN) 300 mg capsule Take 2 capsules by mouth twice daily for 180 days. 120 capsule 5 hydroCHLOROthiazide (HYDRODIURIL, ESIDRIX) 12.5 mg capsule Take 1 capsule by mouth once daily. (Patient not taking: Reported on 04/23/2023) 90 capsule 3 tiotropium bromide (SPIRIVA RESPIMAT) 2.5 mcg/actuation inhaler Inhale 2 Puffs as instructed once daily. (Patient not taking: Reported on 04/23/2023) 1 Inhaler 5 No current facility-administered medications for this visit. ALLERGIES No Known Allergies PAST MEDICAL HISTORY PAST MEDICAL HISTORY Diagnosis Date AAA (abdominal aortic aneurysm) ([facility]) 03/02/2009 Atrial fibrillation ([facility]) Atrial flutter ([facility]) 08/20/2011 Chronic cholecystitis Coronary artery disease DDD (degenerative disc disease), lumbar 02/05/2014 Emphysematous bleb ([facility]) 05/28/2007 Right upper lung. Erectile dysfunction 02/27/2011 Esophageal reflux Gastroesophageal reflux Fatty liver GYNECOMASTIA 11/08/2006 Hemorrhage of rectum and anus 12/25/2009 bleeding hemorrhoids Hiatal hernia Hypertension 06/12/2013 Obesity, unspecified 11/04/2008 Obstructive sleep apnea CPAP Other and unspecified hyperlipidemia 11/05/2006 Other emphysema ([facility]) Emphysema Pulmonary embolism ([facility]) 05/19/2011 Substance abuse ([facility]) Tobacco use disorder 10/24/2006 ex-smoker Unspecified constipation Constipation Unspecified hypothyroidism 11/05/2006 PHYSICAL EXAMINATION BP 140/80 Pulse 67 Temp (Src) 98 (Temporal) Resp 16 Ht 5' 8 (1.73m) Wt 214 lb (97.1kg) SpO2 96% BMI 32.55 kg/(m^2). General Appearance: alert, oriented x 3, pleasant and in no acute distress Eyes: Strabismus Oropharynx: Upper denture Lungs: breath sounds clear to auscultation bilaterally, no crackles, rhonchi, or wheezes Heart: regular rate and rhythm, no murmurs or gallops Abdomen: ventral hernia increasing in size with straining, no tenderness or discoloration, soft, non-tender, normoactive bowel sounds Rectal exam: deferred Extremities: no cyanosis or edema Skin: no jaundice Neuro: alert, oriented x 3, pleasant and in no acute distress LABS H.pylori stool Ag neg (05/04/23) IMAGING STUDIES AND PROCEDURES Barium esophagram (03/07/2023) Small hiatal hernia Tertiary contractions. Otherwise normal esophagram. EGD (02/08/2023) Impression: - Z-line regular, 40 cm from the incisors. Biopsied. - 2 cm hiatal hernia. - Normal stomach. Biopsied. - Normal examined duodenum. Biopsied. Pathology: A. Duodenum, biopsy: - Small intestine mucosa with with no significant histopathologic findings. B. Stomach, biopsy: - Gastric body mucosa with chronic Helicobacter pylori-associated gastritis. - Helicobacter pylori organisms are identified on H&E stain. C. Esophagus, lower, biopsy: - Squamous mucosa with no significant histopathologic findings. D. Esophagus, mid, biopsy: - Squamous mucosa with no significant histopathologic findings. MBS (02/01/23) Impression: Evidence of: Oropharyngeal dysphagia-minimal deficits, Concern for possible esophageal impairment An elevated risk for aspiration: No Swallow Efficiency: Preserved Flexible laryngoscopy (01/10/2023, Dr. Tapia) Flexible laryngoscopy was performed because of the following indication: hyperactive gag and dysphagia and odynophagia: After spraying the nose with 4% xylocaine and 0.5% oxymetazoline, the flexible scope was placed in a transnasal fashion. The nasopharynx, oropharynx, hypopharynx including the pyriform sinuses were normal. The base of tongue showed no gross lesions. The larynx itself showed no lesions. The vocal cords moved well bilaterally. CT chest wo IV contrast (10/10/2022) RESULT: Limitations: None. Lines, tubes, and devices: None. Lung parenchyma and airways: The central airways are patent. There is a very large bulla in the right upper lung measuring 13 x 10 cm. There are reticular opacities in the bilateral lungs predominantly involving the peripheral areas with honeycombing. Traction bronchiectasis is identified. No significant architectural distortion. No solid mass or consolidative opacities. Pleural space: No pleural effusions or pneumothorax. Lower neck, lymph nodes, and mediastinum: The imaged thyroid gland is normal. No lymphadenopathy in the supraclavicular, axillary, mediastinal, or hilar regions. Heart, pericardium, and thoracic vessels: Stable cardiac chambers, thoracic aorta and central pulmonary arteries. There is mild focal bulging along the left aspect of the aortic arch, unchanged. No pericardial effusion/thickening. Bones and soft tissues: No destructive bone lesion. Extensive osteophyte formation seen in the spine. Chest wall soft tissue remains unremarkable. Upper abdomen: Limited study through the upper abdomen demonstrates no interval changes. D[employer] Worker (topogram) images: No additional findings. IMPRESSION: Findings are suggestive of interstitial lung disease. The pattern and distribution are compatible with UIP. Very large bulla in the right upper lobe. Barium Esophagram (12/07/2021) Indication: Dysphagia A barium esophagram was performed. There is normal course and caliber of the esophagus. No mass or stricture is visualized. There are no esophageal diverticula. Small sliding hiatal hernia. The patient swallowed a barium tablet without difficulty. Impression: Small sliding hiatal hernia Colonoscopy (11/17/2014) Findings: The colon (entire examined portion) appeared normal. External and internal hemorrhoids were found. Impression: - The entire examined colon is normal. - External and internal hemorrhoids. - No specimens collected. IMPRESSION Mr. Mccarthy is a 62-year-old male with a history of COPD, ILD and a large RUL bulla ([id number]), A-fib on Eliquis, chronic OA (right knee and back) on high dose NSAID, and GERD who was initially seen at GI clinic on 02/01/23 for an evaluation of chronic dysphagia for the past 3 years. EGD, Barium esophagram, MBS did not show the exact etiology of dysphagia. Patient reports improvement in dysphagia after H.pylori Tx with the confirmed eradication, but still having symptoms in every 1-2 weeks. He also reports worsening of acid reflux after the discontinuation of PPI. PLAN #Dysphagia -The exact etiology is still unclear. Some of his symptoms may be related to a large mucous production from COPD (recently received ABX and solumedrol for exacerbation), smoking MJ daily, and eating too quickly without chewing properly. -Re-order esophageal manometry to r/o esophageal motility disorder -Educated that he needs to eat slowly to chew properly -Continue close follow-up with Pulmonology #H.pylori infection -Confirmed eradication #GERD -Restart Protonix 40mg every day -Briefly discussed sitting or standing upright after meal to prevent acid reflux. -Will reiterate lifestyle modification for GERD on next visit. #Colon cancer screening -Colonoscopy in 2024 This patient case was discussed with Dr. Grant. Plan is to follow up in one month. Arjun Polanco MD May 10, 2023 9:46 AM [facility] STAFF PHYSICIAN NOTE OF PERSONAL INVOLVEMENT IN CARE I have reviewed the progress note obtained and documented by the fellow and I personally participated in the elaine components. I have discussed the case and management of the patient's care. The following comments revise or confirm relevant elaine components of their note. 62 yo M with h/o COPD, Afib, seen today for follow up for dysphagia and H pylori infection. Admits to gulping, not chewing well. Overall symptoms improved by 70% since H pylori eradications Describes infrequent episodes of food and liquid getting stuck in his throat, occurs every 1-2 weeks, sometimes has to bring it back up to his mouth, rechew it and swallow it back down. No problem with pills EGD and esophagram were unremarkable other than a small hiatal hernia + hearbturn, much improved on PPI - recurred now that he quit PPI for H pylori stool Ag test. Daily NSAIDs use Continues to smoke, significant secretions which may be also impacting his swallowing Agree with stopping NSAIDs,use tylenol for pain, restarting PPI and esophageal manometry Patient educated that he should sit down, eat slowly, chew very well his food. SIGNATURE: Nelida Grant MD DATE of SERVICE: May 10, 2023 TIME of SERVICE: 9:51 AM documented in this encounter [facility] 05-02-2023 Note Patient Outreach (AM [facility] JENNIE MCCARTHY ([id number]) 1960 M Date Time Provider Department 05/02/23 CORIE CHRISTENSEN During your visit today, we recorded the following information about you: Corie Christensen RN 05/02/2023 10:28 AM Signed CDM ESCALATION Provider Action / FYI: Instructed on doxycycline and medrol fred . Corie Christensen RN May 02, 2023 Message received via: Virtualist Escalation Follow-Up Patient escalated to Virtualist on: Reason for escalation: Patient / caregiver reports congestion, coughing, green mucus x 1 week. Using more frequent nebulizer treatment(s) and OTC Dayquil Virtualist intervention: prescription for Doxycycline and Medrol dose fred Rx Contact made with patient: Yes Patient identified by name and date of . Discussed care with patient Based on service order dispatcher chief the following disposition is advised: No symptoms or symptoms present, not severe. Routed to: No Action Needed VALENTINE Education Provided this Outreach: Evelyn Christensen RN May 02, 2023 10:20 AM Allergies As of Date: 05/02/2023 (No Known Allergies) Date Reviewed: 05/01/2023 Reviewed by: Mariposa Mc APRN.ORCHARD SPRAYER - Fully Assessed Reason for Visit: CDM [Other] Cmt: Escalation follow up Prescriptions as of 05/02/2023 - methylPREDNISolone (MEDROL, FRED,) 4 mg Dose-Pack As Instructed per package - doxycycline hyclate (VIBRAMYCIN) 100 mg capsule Take 1 capsule by mouth two times a day for 5 days. - tiotropium bromide (SPIRIVA RESPIMAT) 2.5 mcg/actuation inhaler Inhale 2 Puffs as instructed once daily. - pantoprazole DR (PROTONIX) 40 mg tablet Take 1 tablet by mouth twice daily for 14 days. - bismuth subsalicylate 525 mg tab Take 525 mg by mouth four times daily for 14 days. - ibuprofen (MOTRIN) 800 mg tablet Take 1 tablet by mouth once daily. - gabapentin (NEURONTIN) 300 mg capsule Take 2 capsules by mouth twice daily for 180 days. - apixaban (ELIQUIS) 5 mg tab(s) Take 1 tablet by mouth twice daily. - lisinopril (ZESTRIL, PRINIVIL) 40 mg tablet Take 1 tablet by mouth once daily. - levothyroxine (SYNTHROID) 137 mcg tablet Take 1 tablet by mouth once daily. Take on empty stomach - atorvastatin (LIPITOR) 80 mg tablet Take 1 tablet by mouth daily at bedtime. For cholesterol. - albuterol HFA (VENTOLIN HFA) 90 mcg/actuation inhaler Inhale 2 Puffs as instructed every 4 hours as needed. - hydroCHLOROthiazide (HYDRODIURIL, ESIDRIX) 12.5 mg capsule Take 1 capsule by mouth once daily. - tiotropium bromide (SPIRIVA RESPIMAT) 2.5 mcg/actuation inhaler Inhale 2 Puffs as instructed once daily. - nitroglycerin sublingual (NITROQUICK) 0.4 mg SL tablet Dissolve 1 tablet under the tongue as needed. FOR CHEST PAIN. IF NO RELIEF CALL 911 - hydrocortisone 2.5 % cream Apply to scaly patches on face two times daily as needed for flares. Use 2 weeks on 1 week off - albuterol (PROVENTIL) 2.5 mg /3 mL (0.083 %) nebulizer solution Use 3 mL via nebulizer every 4 hours as needed for wheezing/shortness of breath. Use over 5-15minutes. - Nebulizer NEBULIZER FOR HOME USE. Problem List As Of Date 05/02/2023 Noted Resolved Esophageal reflux [K21.9] Internal hemorrhoids without mention of complic*10/24/2006 01/02/2017 Tobacco use disorder [F17.200] 10/24/2006 09/04/2011 COPD with exacerbation (HCC) [J44.1] 10/24/2006 Hypothyroidism [E03.9] 11/05/2006 GYNECOMASTIA [N62] 11/08/2006 11/04/2008 Unspecified sleep apnea [G47.30] 04/03/2007 06/09/2013 Lung bullae (HCC) [J43.9] 05/28/2007 SCREENING FOR CONDITION NOS [Z13.9] 11/21/2007 11/04/2008 Obesity, unspecified [E66.9] 11/04/2008 06/08/2013 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/12/2013 Lumbago [M54.50] 03/08/2009 Patient Noncompliance [Z91.199] 02/03/2010 Erectile dysfunction [N52.9] 02/27/2011 Pulmonary embolism [I26.99] 05/19/2011 01/06/2013 Paroxysmal atrial flutter (HCC) [I48.92] 08/20/2011 Atrial fibrillation (HCC) [I48.91] 06/03/2012 06/18/2019 Cervicalgia [M54.2] 01/15/2013 04/13/2013 Headache [R51] 01/15/2013 04/13/2013 SUMMARY [V999.95] 06/08/2013 02/03/2014 History of pulmonary embolism [Z86.711] 06/08/2013 01/02/2017 History of smoking [Z87.891] 06/08/2013 06/09/2013 Hyperlipidemia [E78.5] 06/08/2013 Atelectasis [J98.11] 06/12/2013 02/03/2014 Hypertension [I10] 06/12/2013 Hypovolemia [E86.1] 06/12/2013 06/15/2013 VANIA (obstructive sleep apnea) AHI 71 [G47.33] 12/30/2013 Obesity [E66.9] 12/30/2013 05/11/2019 Nasal congestion [R09.81] 12/30/2013 08/27/2016 Visual impairment in both eyes [H54.3] 12/30/2013 08/27/2016 Physical deconditioning, multifactorial dyspnea*02/03/2014 08/27/2016 Lumbar spondylosis [M47.816] 02/05/2014 12/31/2017 DDD (degenerative disc disease), lumbar [M51.36]02/05/2014 12/31/2017 Sciatica [M54.30] 02/24/2014 Sebaceous cyst [L72.3] 09/03/2016 01/02/2017 Bronchitis [J (more content not included)... [facility] 05-02-2023 Note HNO ID: [id number] Author: Corie Christensen RN Service: ? Author Type: Registered Nurse Type: Progress Notes Filed: 05/02/2023 10:28 AM Note Text: CDM ESCALATION Provider Action / FYI: Instructed on doxycycline and medrol fred . Corie Christensen RN May 02, 2023 Message received via: Virtualist Escalation Follow-Up Patient escalated to Virtualist on: Reason for escalation: Patient / caregiver reports congestion, coughing, green mucus x 1 week. Using more frequent nebulizer treatment(s) and OTC Dayquil Virtualist intervention: prescription for Doxycycline and Medrol dose fred Rx Contact made with patient: Yes Patient identified by name and date of . Discussed care with patient Based on service order dispatcher chief the following disposition is advised: No symptoms or symptoms present, not severe. Routed to: No Action Needed VALENTINE Education Provided this Outreach: No Corie Christensen RN May 02, 2023 10:20 AM [facility] 05-02-2023 Miscellaneous Notes I spoke with Mrs. Mccarthy who said she will remind Mr. Celestina of returning the stool sample kit for the H.pylori Ag test to confirm the eradication. Next appointment is scheduled for 05/10. Arjun Polanco MD Gastroenterology and Hepatology fellow documented in this encounter [facility] 05-01-2023 Note Patient Outreach (AM [facility]) JENNIE MCCARTHY ([id number]) 1960 M Date Time Provider Department 05/01/23 CORIE CHRISTENSEN During your visit today, we recorded the following information about you: Corie Christensen RN 05/02/2023 8:53 AM Signed CDM ESCALATION Provider Action / FYI: Paged virtualist Patient / caregiver reports congestion, coughing, green mucus x 1 week. Using more frequent nebulizer treatment(s) and OTC Dayquil. Instructed patient / caregiver to take all incoming calls until they speak with the provider as the call may not clearly indicate [facility] on caller ID. Madiha Christensen jail keeperMedia Assistant May 01, 2023 9:45 AM Message received via: Virtualist Escalation Follow-Up Patient escalated to Virtualist on: 04/30/23 Reason for escalation: Patient / caregiver reports congestion, coughing, green mucus x 1 week. Using more frequent nebulizer treatment(s) and OTC Dayquil. Virtualist intervention: unable to reach patient Contact made with patient: Yes Patient identified by name and date of . Discussed care with patient Based on service order dispatcher chief the following disposition is advised: Sent to virtualist. Corie Christensen RN May 01, 2023 9:45 AM Allergies As of Date: 05/01/2023 (No Known Allergies) Date Reviewed: 05/01/2023 Reviewed by: Mariposa Mc APRN.ORCHARD SPRAYER - Fully Assessed Reason for Visit: CDM [Other] Cmt: Escalation follow up Prescriptions as of 05/02/2023 - methylPREDNISolone (MEDROL, FRED,) 4 mg Dose-Pack As Instructed per package - doxycycline hyclate (VIBRAMYCIN) 100 mg capsule Take 1 capsule by mouth two times a day for 5 days. - tiotropium bromide (SPIRIVA RESPIMAT) 2.5 mcg/actuation inhaler Inhale 2 Puffs as instructed once daily. - pantoprazole DR (PROTONIX) 40 mg tablet Take 1 tablet by mouth twice daily for 14 days. - bismuth subsalicylate 525 mg tab Take 525 mg by mouth four times daily for 14 days. - ibuprofen (MOTRIN) 800 mg tablet Take 1 tablet by mouth once daily. - gabapentin (NEURONTIN) 300 mg capsule Take 2 capsules by mouth twice daily for 180 days. - apixaban (ELIQUIS) 5 mg tab(s) Take 1 tablet by mouth twice daily. - lisinopril (ZESTRIL, PRINIVIL) 40 mg tablet Take 1 tablet by mouth once daily. - levothyroxine (SYNTHROID) 137 mcg tablet Take 1 tablet by mouth once daily. Take on empty stomach - atorvastatin (LIPITOR) 80 mg tablet Take 1 tablet by mouth daily at bedtime. For cholesterol. - albuterol HFA (VENTOLIN HFA) 90 mcg/actuation inhaler Inhale 2 Puffs as instructed every 4 hours as needed. - hydroCHLOROthiazide (HYDRODIURIL, ESIDRIX) 12.5 mg capsule Take 1 capsule by mouth once daily. - tiotropium bromide (SPIRIVA RESPIMAT) 2.5 mcg/actuation inhaler Inhale 2 Puffs as instructed once daily. - nitroglycerin sublingual (NITROQUICK) 0.4 mg SL tablet Dissolve 1 tablet under the tongue as needed. FOR CHEST PAIN. IF NO RELIEF CALL 911 - hydrocortisone 2.5 % cream Apply to scaly patches on face two times daily as needed for flares. Use 2 weeks on 1 week off - albuterol (PROVENTIL) 2.5 mg /3 mL (0.083 %) nebulizer solution Use 3 mL via nebulizer every 4 hours as needed for wheezing/shortness of breath. Use over 5-15minutes. - Nebulizer NEBULIZER FOR HOME USE. Problem List As Of Date 05/01/2023 Noted Resolved Esophageal reflux [K21.9] Internal hemorrhoids without mention of complic*10/24/2006 01/02/2017 Tobacco use disorder [F17.200] 10/24/2006 09/04/2011 COPD with exacerbation (HCC) [J44.1] 10/24/2006 Hypothyroidism [E03.9] 11/05/2006 GYNECOMASTIA [N62] 11/08/2006 11/04/2008 Unspecified sleep apnea [G47.30] 04/03/2007 06/09/2013 Lung bullae (HCC) [J43.9] 05/28/2007 SCREENING FOR CONDITION NOS [Z13.9] 11/21/2007 11/04/2008 Obesity, unspecified [E66.9] 11/04/2008 06/08/2013 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/12/2013 Lumbago [M54.50] 03/08/2009 Patient Noncompliance [Z91.199] 02/03/2010 Erectile dysfunction [N52.9] 02/27/2011 Pulmonary embolism [I26.99] 05/19/2011 01/06/2013 Paroxysmal atrial flutter (HCC) [I48.92] 08/20/2011 Atrial fibrillation (HCC) [I48.91] 06/03/2012 06/18/2019 Cervicalgia [M54.2] 01/15/2013 04/13/2013 Headache [R51] 01/15/2013 04/13/2013 SUMMARY [V999.95] 06/08/2013 02/03/2014 History of pulmonary embolism [Z86.711] 06/08/2013 01/02/2017 History of smoking [Z87.891] 06/08/2013 06/09/2013 Hyperlipidemia [E78.5] 06/08/2013 Atelectasis [J98.11] 06/12/2013 02/03/2014 Hypertension [I10] 06/12/2013 Hypovolemia [E86.1] 06/12/2013 06/15/2013 VANIA (obstructive sleep apnea) AHI 71 [G47.33] 12/30/2013 Obesity [E66.9] 12/30/2013 05/11/2019 Nasal congestion [R09.81] 12/30/2013 08/27/2016 Visual impairment in both eyes [H54.3] 12/30/2013 08/27/2016 Physical deconditioning, multifactorial dyspnea*02/03/2014 08/27/2016 Lumbar spondylosis [M47.816] 02/06/20 (more content not included)... [facility] 05-01-2023 Note HNO ID: [id number] Author: Mariposa Mc APRN.[employer]CHARD [employer]AYER Service: ? Author Type: Nurse Practitioner Type: Progress Notes Filed: 05/01/2023 10:36 AM Note Text: Virtualist Distance Health Note (CDM/TCM//CC HC/H@[facility] escalations) I have communicated my name and active licensure. The patient's identity and physical location were verified at the time of this visit. Either the patient or their legal cash application representative has been informed of the risks and benefits of -- and alternatives to -- treatment through a remote evaluation and consents to proceed with the evaluation remotely. Triage source: Chronic Disease Management Contacted by: Audio Only Visit History of present illness: Hx COPD Having SOB, wheezing, cough and congestion for the past few weeks Denies fever, CP, abd pain, N/V/D Past medical history, past surgical history, family history and social history reviewed and updated. REVIEW OF SYSTEMS: Review of Systems VITAL SIGNS: (if available) There were no vitals taken for this visit. Physical Exam (if video visit was performed) Physical Exam Assessment/Plan: ASSESSMENT/PLAN: 1. Chronic obstructive pulmonary disease, unspecified COPD type (HCC) - ICD9: 496, ICD10: J44.9 (primary diagnosis) 2. Congestion of respiratory tract - ICD9: 519.8, ICD10: J98.8 3. Subacute cough - ICD9: 786.2, ICD10: R05.2 4. SOB (shortness of breath) - ICD9: 786.05, ICD10: R06.02 5. Wheezing - ICD9: 786.07, ICD10: R06.2 -Doxycycline and Medrol dose fred Rx -Discussed red flag symptoms Disposition: Patient remains at home; meds adjusted and / or prescribed A total of 15 minutes was spent providing medical care using telemedicine. Signed in as Primary Virtualist, Secondary Virtualist, or [facility] Telehealth provider: Primary [facility] 05-01-2023 History of Present illness Narrative Virtualist Distance Health Note (CDM/TCM//CC HC/H@[facility] escalations) I have communicated my name and active licensure. The patient's identity and physical location were verified at the time of this visit. Either the patient or their legal cash application representative has been informed of the risks and benefits of -- and alternatives to -- treatment through a remote evaluation and consents to proceed with the evaluation remotely. Triage source: Chronic Disease Management Contacted by: Audio Only Visit History of present illness: Hx COPD Having SOB, wheezing, cough and congestion for the past few weeks Denies fever, CP, abd pain, N/V/D Past medical history, past surgical history, family history and social history reviewed and updated. REVIEW OF SYSTEMS: Review of Systems VITAL SIGNS: (if available) There were no vitals taken for this visit. Physical Exam (if video visit was performed) Physical Exam Assessment/Plan: ASSESSMENT/PLAN: 1. Chronic obstructive pulmonary disease, unspecified COPD type (HCC) - ICD9: 496, ICD10: J44.9 (primary diagnosis) 2. Congestion of respiratory tract - ICD9: 519.8, ICD10: J98.8 3. Subacute cough - ICD9: 786.2, ICD10: R05.2 4. SOB (shortness of breath) - ICD9: 786.05, ICD10: R06.02 5. Wheezing - ICD9: 786.07, ICD10: R06.2 -Doxycycline and Medrol dose fred Rx -Discussed red flag symptoms Disposition: Patient remains at home; meds adjusted and / or prescribed A total of 15 minutes was spent providing medical care using telemedicine. Signed in as Primary Virtualist, Secondary Virtualist, or [facility] Telehealth provider: Primary documented in this encounter [facility] 05-01-2023 Note HNO ID: [id number] Author: Corie Christensen RN Service: ? Author Type: Registered Nurse Type: Progress Notes Filed: 05/02/2023 8:53 AM Note Text: CDM ESCALATION Provider Action / FYI: Paged virtualist Patient / caregiver reports congestion, coughing, green mucus x 1 week. Using more frequent nebulizer treatment(s) and OTC Dayquil. Instructed patient / caregiver to take all incoming calls until they speak with the provider as the call may not clearly indicate [facility] on caller ID. Madiha Christensen jail keeperMedia Assistant May 01, 2023 9:45 AM Message received via: Virtualist Escalation Follow-Up Patient escalated to Virtualist on: 04/30/23 Reason for escalation: Patient / caregiver reports congestion, coughing, green mucus x 1 week. Using more frequent nebulizer treatment(s) and OTC Dayquil. Virtualist intervention: unable to reach patient Contact made with patient: Yes Patient identified by name and date of . Discussed care with patient Based on service order dispatcher chief the following disposition is advised: Sent to [facility]. Corie Christensen RN May 01, 2023 9:45 AM [facility] 04-30-2023 Note HNO ID: [id number] Author: Butch Ann MD Service: ? Author Type: Physician Type: Progress Notes Filed: 04/30/2023 12:57 PM Note Text: Virtualist Distance Health Note (CDM/TCM//CC HC/H@[facility] escalations) I have communicated my name and active licensure. The patient's identity and physical location were verified at the time of this visit. Either the patient or their legal cash application representative has been informed of the risks and benefits of -- and alternatives to -- treatment through a remote evaluation and consents to proceed with the evaluation remotely. Triage source: Chronic Disease Management Paged for cough congestion green sputum Contacted by: Audio Only Visit 12:24 PM No answer VMML 12:51 PM No answer VMML on mobile Home phone no answer History of present illness: No show Past medical history, past surgical history, family history and social history reviewed and updated. REVIEW OF SYSTEMS: Review of Systems VITAL SIGNS: (if available) There were no vitals taken for this visit. Physical Exam (if video visit was performed) Physical Exam Assessment/Plan: ASSESSMENT/PLAN: 1. NO SHOW - ICD9: , ICD10: Patient or family did not answer multiple calls. I left a VMM to follow up with PCP or, if symptoms are severe, to call 911 or go to the ED. Butch Ann Disposition: NO show A total of 0 minutes was spent providing medical care using telemedicine. Signed in as Primary Virtualist, Secondary Virtualist, or [facility] Telehealth provider: Primary [facility] 04-30-2023 Note Patient Outreach ([facility]) JENNIE MCCARTHY ([id number]) 1960 M Date Time Provider Department 04/30/23 CORIE CHRISTENSEN During your visit today, we recorded the following information about you: Corie Christensen RN 05/01/2023 8:39 AM Signed [facility] Telephonic Outreach Provider Shaka/ESSIE Eubanksd virtualist. Patient / caregiver reports congestion, coughing, green mucus x 1 week. Using more frequent nebulizer treatment(s) and OTC Dayquil. Instructed patient / caregiver to take all incoming calls until they speak with the provider as the call may not clearly indicate [facility] on caller ID. Madiha Christensen RNjail keeperMedia Assistant April 30, 2023 11:42 AM At next [facility] Telephonic Outreach follow up on: Escalation and Needs Goals, ADLs and Falls assessments updated. Contacted for: Routine Telephonic Outreach Contact made with patient: Yes Patient identified by name and date of . Discussed care with patient Are you experiencing any new or worsening symptoms you need to talk about today? Yes Based on service order dispatcher chief, the following disposition is advised: Sent to virtualist. Corie Christensen RN April 30, 2023 11:43 AM Allergies As of Date: 04/30/2023 (No Known Allergies) Date Reviewed: 04/23/2023 Reviewed by: Tg Albrecht MD - Fully Assessed Reason for Visit: CD [Other] Cmt: Check in call Prescriptions as of 05/01/2023 - tiotropium bromide (SPIRIVA RESPIMAT) 2.5 mcg/actuation inhaler Inhale 2 Puffs as instructed once daily. - pantoprazole DR (PROTONIX) 40 mg tablet Take 1 tablet by mouth twice daily for 14 days. - bismuth subsalicylate 525 mg tab Take 525 mg by mouth four times daily for 14 days. - ibuprofen (MOTRIN) 800 mg tablet Take 1 tablet by mouth once daily. - gabapentin (NEURONTIN) 300 mg capsule Take 2 capsules by mouth twice daily for 180 days. - apixaban (ELIQUIS) 5 mg tab(s) Take 1 tablet by mouth twice daily. - lisinopril (ZESTRIL, PRINIVIL) 40 mg tablet Take 1 tablet by mouth once daily. - levothyroxine (SYNTHROID) 137 mcg tablet Take 1 tablet by mouth once daily. Take on empty stomach - atorvastatin (LIPITOR) 80 mg tablet Take 1 tablet by mouth daily at bedtime. For cholesterol. - albuterol HFA (VENTOLIN HFA) 90 mcg/actuation inhaler Inhale 2 Puffs as instructed every 4 hours as needed. - hydroCHLOROthiazide (HYDRODIURIL, ESIDRIX) 12.5 mg capsule Take 1 capsule by mouth once daily. - tiotropium bromide (SPIRIVA RESPIMAT) 2.5 mcg/actuation inhaler Inhale 2 Puffs as instructed once daily. - nitroglycerin sublingual (NITROQUICK) 0.4 mg SL tablet Dissolve 1 tablet under the tongue as needed. FOR CHEST PAIN. IF NO RELIEF CALL 911 - hydrocortisone 2.5 % cream Apply to scaly patches on face two times daily as needed for flares. Use 2 weeks on 1 week off - albuterol (PROVENTIL) 2.5 mg /3 mL (0.083 %) nebulizer solution Use 3 mL via nebulizer every 4 hours as needed for wheezing/shortness of breath. Use over 5-15minutes. - Nebulizer NEBULIZER FOR HOME USE. Problem List As Of Date 04/30/2023 Noted Resolved Esophageal reflux [K21.9] Internal hemorrhoids without mention of complic*10/24/2006 01/02/2017 Tobacco use disorder [F17.200] 10/24/2006 09/04/2011 COPD with exacerbation (HCC) [J44.1] 10/24/2006 Hypothyroidism [E03.9] 11/05/2006 GYNECOMASTIA [N62] 11/08/2006 11/04/2008 Unspecified sleep apnea [G47.30] 04/03/2007 06/09/2013 Lung bullae (HCC) [J43.9] 05/28/2007 SCREENING FOR CONDITION NOS [Z13.9] 11/21/2007 11/04/2008 Obesity, unspecified [E66.9] 11/04/2008 06/08/2013 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/12/2013 Lumbago [M54.50] 03/08/2009 Patient Noncompliance [Z91.199] 02/03/2010 Erectile dysfunction [N52.9] 02/27/2011 Pulmonary embolism [I26.99] 05/19/2011 01/06/2013 Paroxysmal atrial flutter (HCC) [I48.92] 08/20/2011 Atrial fibrillation (HCC) [I48.91] 06/03/2012 06/18/2019 Cervicalgia [M54.2] 01/15/2013 04/13/2013 Headache [R51] 01/15/2013 04/13/2013 SUMMARY [V999.95] 06/08/2013 02/03/2014 History of pulmonary embolism [Z86.711] 06/08/2013 01/02/2017 History of smoking [Z87.891] 06/08/2013 06/09/2013 Hyperlipidemia [E78.5] 06/08/2013 Atelectasis [J98.11] 06/12/2013 02/03/2014 Hypertension [I10] 06/12/2013 Hypovolemia [E86.1] 06/12/2013 06/15/2013 VANIA (obstructive sleep apnea) AHI 71 [G47.33] 12/30/2013 Obesity [E66.9] 12/30/2013 05/11/2019 Nasal congestion [R09.81] 12/30/2013 08/27/2016 Visual impairment in both eyes [H54.3] 12/30/2013 08/27/2016 Physical deconditioning, multifactorial dyspnea*02/03/2014 08/27/2016 Lumbar spondylosis [M47.816] 02/05/2014 12/31/2017 DDD (degenerative disc disease), lumbar [M51.36]02/05/2014 12/31/2017 Sciatica [M54.30] 02/24/2014 Sebaceous cyst [L72.3] 09/03/2016 01/02/2017 Bronchitis [J40] 04/04/2017 Rosacea [L71.9] 04/04/2017 Obesity, Class II, BMI 35-39.9 (more content not included)... [facility] 04-30-2023 Note HNO ID: [id number] Author: Corie Christensen RN Service: ? Author Type: Registered Nurse Type: Progress Notes Filed: 05/01/2023 8:39 AM Note Text: [facility] Telephonic Outreach Provider Action/FYI Paged virtualist. Patient / caregiver reports congestion, coughing, green mucus x 1 week. Using more frequent nebulizer treatment(s) and OTC Dayquil. Instructed patient / caregiver to take all incoming calls until they speak with the provider as the call may not clearly indicate [facility] on caller ID. Madiha Christensen RNjail keeperMedia Assistant April 30, 2023 11:42 AM At next [facility] Telephonic Outreach follow up on: Escalation and Needs Goals, ADLs and Falls assessments updated. Contacted for: Routine Telephonic Outreach Contact made with patient: Yes Patient identified by name and date of . Discussed care with patient Are you experiencing any new or worsening symptoms you need to talk about today? Yes Based on service order dispatcher chief, the following disposition is advised: Sent to virtualist. Corie Christensen RN April 30, 2023 11:43 AM [facility] 04-30-2023 History of Present illness Narrative Virtualist Distance Health Note (CDM/TCM//CC HC/H@[facility] escalations) I have communicated my name and active licensure. The patient's identity and physical location were verified at the time of this visit. Either the patient or their legal cash application representative has been informed of the risks and benefits of -- and alternatives to -- treatment through a remote evaluation and consents to proceed with the evaluation remotely. Triage source: Chronic Disease Management Paged for cough congestion green sputum Contacted by: Audio Only Visit 12:24 PM No answer VMML 12:51 PM No answer VMML on mobile Home phone no answer History of present illness: No show Past medical history, past surgical history, family history and social history reviewed and updated. REVIEW OF SYSTEMS: Review of Systems VITAL SIGNS: (if available) There were no vitals taken for this visit. Physical Exam (if video visit was performed) Physical Exam Assessment/Plan: ASSESSMENT/PLAN: 1. NO SHOW - ICD9: , ICD10: Patient or family did not answer multiple calls. I left a VMM to follow up with PCP or, if symptoms are severe, to call 911 or go to the ED. Butch Ann Disposition: NO show A total of 0 minutes was spent providing medical care using telemedicine. Signed in as Primary Virtualist, Secondary Virtualist, or [facility] Telehealth provider: Primary documented in this encounter [facility] 04-23-2023 Note HNO ID: [id number] Author: Tg Albrecht MD Service: ? Author Type: Physician Type: Progress Notes Filed: 04/23/2023 7:16 PM Note Text: . [facility] [place] Note Patient name: Jennie Mccarthy PCP: Levon Corral MD CC: Routine follow-up HPI: Jennie Mccarthy 62 year old male current smoker with PMH significant for obesity, VANIA, AF/flutter, CAD, HTN, GERD, hypothyroidism, PE, CPFE. ILD work-up significant for positive BRISSA and dsDNA. He was referred to rheumatology who felt that the positive antibodies were false positive results and lung disease due to occupational exposure rather than autoimmune related fibrosis. From a respiratory standpoint he only has LOVE. No significant cough, chest pain or wheezing. Current issue with dysphagia. Diagnosed with H. pylori and was referred to thoracic surgery for possible bullectomy as etiology for dysphagia (extrinsic compression). Unfortunately, he continues to smoke. PFTs shows mild COPD (small airways obstruction) and air-trapping. 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 Erectile dysfunction 02/27/2011 Esophageal reflux Gastroesophageal reflux Fatty liver GYNECOMASTIA 11/08/2006 Hemorrhage of rectum and anus 12/25/2009 bleeding hemorrhoids Hiatal hernia Hypertension 06/12/2013 Obesity, unspecified 11/04/2008 Obstructive sleep apnea CPAP Other and unspecified hyperlipidemia 11/05/2006 Other emphysema (HCC) Emphysema Pulmonary embolism (HCC) 05/19/2011 Substance abuse ([facility]) Tobacco use disorder 10/24/2006 ex-smoker Unspecified constipation Constipation Unspecified hypothyroidism 11/05/2006 ALLERGIES No Known Allergies gabapentin (NEURONTIN) 300 mg capsule Take 2 capsules by mouth twice daily for 180 days. apixaban (ELIQUIS) 5 mg tab(s) Take 1 tablet by mouth twice daily. lisinopril (ZESTRIL, PRINIVIL) 40 mg tablet Take 1 tablet by mouth once daily. levothyroxine (SYNTHROID) 137 mcg tablet Take 1 tablet by mouth once daily. Take on empty stomach atorvastatin (LIPITOR) 80 mg tablet Take 1 tablet by mouth daily at bedtime. For cholesterol. albuterol HFA (VENTOLIN HFA) 90 mcg/actuation inhaler Inhale 2 Puffs as instructed every 4 hours as needed. pantoprazole DR (PROTONIX) 40 mg tablet Take 1 tablet by mouth twice daily for 14 days. (Patient not taking: Reported on 04/23/2023) bismuth subsalicylate 525 mg tab Take 525 mg by mouth four times daily for 14 days. ibuprofen (MOTRIN) 800 mg tablet Take 1 tablet by mouth once daily. hydroCHLOROthiazide (HYDRODIURIL, ESIDRIX) 12.5 mg capsule Take 1 capsule by mouth once daily. (Patient not taking: Reported on 04/23/2023) tiotropium bromide (SPIRIVA RESPIMAT) 2.5 mcg/actuation inhaler Inhale 2 Puffs as instructed once daily. (Patient not taking: Reported on 04/23/2023) nitroglycerin sublingual (NITROQUICK) 0.4 mg SL tablet Dissolve 1 tablet under the tongue as needed. FOR CHEST PAIN. IF NO RELIEF CALL 911 hydrocortisone 2.5 % cream Apply to scaly patches on face two times daily as needed for flares. Use 2 weeks on 1 week off albuterol (PROVENTIL) 2.5 mg /3 mL (0.083 %) nebulizer solution Use 3 mL via nebulizer every 4 hours as needed for wheezing/shortness of breath. Use over 5-15minutes. Nebulizer NEBULIZER FOR HOME USE. Social History Tobacco Use Smoking status: Every Day Packs/day: 0.50 Years: 46.00 Additional pack years: 0.00 Total pack years: 23.00 Types: Cigarettes Start date: 07/08/1973 Smokeless tobacco: Never Tobacco comments: Currently 0.5ppd 10/12/22 Vaping Use Vaping Use: Never used Substance Use Topics Alcohol use: No Drug use: Yes Types: Marijuana Comment: Off and on. FAMILY HISTORY Problem Relation Age of Onset other (Pneumonia) Mother age 72 other (aneursm repair) Mother Prostate Cancer Father CArdiomegaly ( age 72) Aneurysm Brother Lung Cancer Brother Lung Cancer ( age 60's) Heart Brother HI x 2 other (aneurysm repair) Brother PAST SURGICAL HISTORY Procedure Laterality Date COLONOSCOPY 2005 COLONOSCOPY FLX DX W/COLLJ SPEC WHEN PFRMD 12/26/09 DIR RPR ANEURYSM ABDOMINAL AORTA 06/12/2013 Abd Aortic Aneurysm Repair, Endovascular ENDOVAS REPAIR ILIAC ANEURYSM Right 01/15/2020 R hypogastric coiling, R common femoral access FOCAL LASER RETINAL TUMOR OS (LEFT EYE) Left 10/2019 Retinal Tear HEMORRHOIDECTOMY INTERNAL RUBBER BAND LIGATIONS 11/2004 LAPS SURG CHOLECYSTECTOMY W/CHOLANGIOGRAPHY 07/07/07 TONSILLECTOMY PRIMARY/SECONDARY Tonsillectomy PMH, Social history, family history and surgical history reviewed and updated in EMR RE (more content not included)... [facility] 04-23-2023 Note HNO ID: [id number] Author: Aracelis Mann RPFT Service: ? Author Type: Respiratory Therapist Type: Progress Notes Filed: 04/23/2023 10:13 AM Note Text: PULM FUNCTION SMARTBLOCK: Provider: Tg Albrecht MD Assisting Tech: Aracelis Mann RPFT Spirometry: 1 DLCO: 1 LV - Box: 1 [facility] 04-23-2023 History of Present illness Narrative Images from the original note were not included. . Res[facility] [place] Note Patient name: Jennie Mccarthy PCP: Levon Corral MD CC: Routine follow-up HPI: Jennie Mccarthy 62 year old male current smoker with PMH significant for obesity, VANIA, AF/flutter, CAD, HTN, GERD, hypothyroidism, PE, CPFE. ILD work-up significant for positive BRISSA and dsDNA. He was referred to rheumatology who felt that the positive antibodies were false positive results and lung disease due to occupational exposure rather than autoimmune related fibrosis. From a respiratory standpoint he only has LOVE. No significant cough, chest pain or wheezing. Current issue with dysphagia. Diagnosed with H. pylori and was referred to thoracic surgery for possible bullectomy as etiology for dysphagia (extrinsic compression). Unfortunately, he continues to smoke. PFTs shows mild COPD (small airways obstruction) and air-trapping. DATA: Small airways obstruction and air-trapping PAST MEDICAL HISTORY Diagnosis Date AAA (abdominal aortic aneurysm) ([facility]) 03/02/2009 Atrial fibrillation (HCC) Atrial flutter (HCC) 08/20/2011 Chronic cholecystitis Coronary artery disease DDD (degenerative disc disease), lumbar 02/05/2014 Emphysematous bleb ([facility]) 05/28/2007 Right upper lung. Erectile dysfunction 02/27/2011 Esophageal reflux Gastroesophageal reflux Fatty liver GYNECOMASTIA 11/08/2006 Hemorrhage of rectum and anus 12/25/2009 bleeding hemorrhoids Hiatal hernia Hypertension 06/12/2013 Obesity, unspecified 11/04/2008 Obstructive sleep apnea CPAP Other and unspecified hyperlipidemia 11/05/2006 Other emphysema ([facility]) Emphysema Pulmonary embolism ([facility]) 05/19/2011 Substance abuse ([facility]) Tobacco use disorder 10/24/2006 ex-smoker Unspecified constipation Constipation Unspecified hypothyroidism 11/05/2006 ALLERGIES No Known Allergies gabapentin (NEURONTIN) 300 mg capsule Take 2 capsules by mouth twice daily for 180 days. apixaban (ELIQUIS) 5 mg tab(s) Take 1 tablet by mouth twice daily. lisinopril (ZESTRIL, PRINIVIL) 40 mg tablet Take 1 tablet by mouth once daily. levothyroxine (SYNTHROID) 137 mcg tablet Take 1 tablet by mouth once daily. Take on empty stomach atorvastatin (LIPITOR) 80 mg tablet Take 1 tablet by mouth daily at bedtime. For cholesterol. albuterol HFA (VENTOLIN HFA) 90 mcg/actuation inhaler Inhale 2 Puffs as instructed every 4 hours as needed. pantoprazole DR (PROTONIX) 40 mg tablet Take 1 tablet by mouth twice daily for 14 days. (Patient not taking: Reported on 04/23/2023) bismuth subsalicylate 525 mg tab Take 525 mg by mouth four times daily for 14 days. ibuprofen (MOTRIN) 800 mg tablet Take 1 tablet by mouth once daily. hydroCHLOROthiazide (HYDRODIURIL, ESIDRIX) 12.5 mg capsule Take 1 capsule by mouth once daily. (Patient not taking: Reported on 04/23/2023) tiotropium bromide (SPIRIVA RESPIMAT) 2.5 mcg/actuation inhaler Inhale 2 Puffs as instructed once daily. (Patient not taking: Reported on 04/23/2023) nitroglycerin sublingual (NITROQUICK) 0.4 mg SL tablet Dissolve 1 tablet under the tongue as needed. FOR CHEST PAIN. IF NO RELIEF CALL 911 hydrocortisone 2.5 % cream Apply to scaly patches on face two times daily as needed for flares. Use 2 weeks on 1 week off albuterol (PROVENTIL) 2.5 mg /3 mL (0.083 %) nebulizer solution Use 3 mL via nebulizer every 4 hours as needed for wheezing/shortness of breath. Use over 5-15minutes. Nebulizer NEBULIZER FOR HOME USE. Social History Tobacco Use Smoking status: Every Day Packs/day: 0.50 Years: 46.00 Additional pack years: 0.00 Total pack years: 23.00 Types: Cigarettes Start date: 07/08/1973 Smokeless tobacco: Never Tobacco comments: Currently 0.5ppd 10/12/22 Vaping Use Vaping Use: Never used Substance Use Topics Alcohol use: No Drug use: Yes Types: Marijuana Comment: Off and on. FAMILY HISTORY Problem Relation Age of Onset other (Pneumonia) Mother age 72 other (aneursm repair) Mother Prostate Cancer Father CArdiomegaly ( age 72) Aneurysm Brother Lung Cancer Brother Lung Cancer ( age 60's) Heart Brother HI x 2 other (aneurysm repair) Brother PAST SURGICAL HISTORY Procedure Laterality Date COLONOSCOPY 2005 COLONOSCOPY FLX DX W/COLLJ SPEC WHEN PFRMD 12/26/09 DIR RPR ANEURYSM ABDOMINAL AORTA 06/12/2013 Abd Aortic Aneurysm Repair, Endovascular ENDOVAS REPAIR ILIAC ANEURYSM Right 01/15/2020 R hypogastric coiling, R common femoral access FOCAL LASER RETINAL TUMOR OS (LEFT EYE) Left 10/2019 Retinal Tear HEMORRHOIDECTOMY INTERNAL RUBBER BAND LIGATIONS 11/2004 LAPS SURG CHOLECYSTECTOMY W/CHOLANGIOGRAPHY 07/07/07 TONSILLECTOMY PRIMARY/SECONDARY <AGE 12 1972 Tonsillectomy PMH, Social history, family history and surgical history reviewed and updated in EMR REVIEW OF SYSTEMS: CONSTITUTIONAL: No fevers, chills, nightsweats, unintended weight loss HEENT: Denies nasal congestion/sinus symptoms, allergy problems. EYES: No dry eyes or eye pain CARDIOVASCULAR: No chest pain, palpitations, orthopnea, PND, edema. PULM: See HPI GI: Dysphagia. No reflux, constipation, diarrhea NEURO: No balance problems, peripheral weakness/paresthesias or numbness of concern. MUSC-SKEL: No joint pain, swelling, or erythema. INTEGUMENTARY: No new skin changes or rashes PHYSICAL EXAMINATION: BP 118/74 Pulse 58 Resp 12 Ht 5' 7.91 (1.73m) Wt 215 lb (97.5kg) SpO2 98% BMI 32.77 kg/(m^2). General Appearance: Age-appropriate male, NAD. Skin: Skin color, texture, turgor normal, no suspicious rashes or lesions. Head: Normocephalic, no masses, lesions, tenderness or abnormalities. Eyes: Sclera, conjunctiva normal. Oropharynx: Poor dentition, no oral lesions. Neck: No JVD, no masses, no adenopathy. Lungs: Not labored, normal to percussion, diminished breath sounds, no wheezes or crackles. Heart: Regular rate and rhythm, no murmurs or gallops. Extremities: Clubbing, no edema. Assessment/Plan: 1. ILD -Pattern not consistent with UIP/IPF, NSIP or DIP. More consistent with occupational lung disease -Surveillance chest CT in one year 2. Mild COPD -Smoking cessation encouraged -Started Spiriva Respimat 3. Bulla of lung -Bullectomy not indicated Tg Albrecht MD Respiratory [place] documented in this encounter [facility] 04-23-2023 History of Present illness Narrative PULM FUNCTION SMARTBLOCK: Provider: Tg Albrecht MD Assisting Tech: Aracelis Mann RPFT Spirometry: 1 DLCO: 1 LV - Box: 1 documented in this encounter [facility] 04-23-2023 Nurse Note Intake information documented in the prior visit with BRENDEN Helms today. documented in this encounter [facility] 03-25-2023 Miscellaneous Notes Patient given results and verbalized understanding of instructions given. Saida Sood Negative for flu and RSV. Patient is positive for COVID. Patient should quarantine for 5 days. Patient should mask for another 5 days. If symptoms are getting worse not better patient should call primary care. documented in this encounter [facility] 03-24-2023 Note HNO ID: [id number] Author: Deacon Marshall APRN.EDWIN Service: ? Author Type: Nurse Practitioner Type: Progress Notes Filed: 03/24/2023 2:41 PM Note Text: Subjective HPI HPI Jennie Mccarthy is a 62 year old male who presents today for CC of cough, congestion. This started 4 days ago. Has tried otc medication for relief. Symptoms are worsened by nothing. Risk factors hx of emphysema/smoker. .Patient presents with: Cough: With body chills, sneezing, congestion. 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 Erectile dysfunction 02/27/2011 Esophageal reflux Gastroesophageal reflux Fatty liver GYNECOMASTIA 11/08/2006 Hemorrhage of rectum and anus 12/25/2009 bleeding hemorrhoids Hiatal hernia Hypertension 06/12/2013 Obesity, unspecified 11/04/2008 Obstructive sleep apnea CPAP Other and unspecified hyperlipidemia 11/05/2006 Other emphysema (HCC) Emphysema Pulmonary embolism (HCC) 05/19/2011 Substance abuse (HCC) Tobacco use disorder 10/24/2006 ex-smoker Unspecified constipation Constipation Unspecified hypothyroidism 11/05/2006 PAST SURGICAL HISTORY Procedure Laterality Date COLONOSCOPY 2005 COLONOSCOPY FLX DX W/COLLJ SPEC WHEN PFRMD 12/26/09 DIR RPR ANEURYSM ABDOMINAL AORTA 06/12/2013 Abd Aortic Aneurysm Repair, Endovascular ENDOVAS REPAIR ILIAC ANEURYSM Right 01/15/2020 R hypogastric coiling, R common femoral access FOCAL LASER RETINAL TUMOR OS (LEFT EYE) Left 10/2019 Retinal Tear HEMORRHOIDECTOMY INTERNAL RUBBER BAND LIGATIONS 11/2004 LAPS SURG CHOLECYSTECTOMY W/CHOLANGIOGRAPHY 07/07/07 TONSILLECTOMY PRIMARY/SECONDARY Tonsillectomy ALLERGIES Patient has no known allergies. MEDICATIONS ibuprofen (MOTRIN) 800 mg tablet Take 1 tablet by mouth once daily. apixaban (ELIQUIS) 5 mg tab(s) Take 1 tablet by mouth twice daily. lisinopril (ZESTRIL, PRINIVIL) 40 mg tablet Take 1 tablet by mouth once daily. levothyroxine (SYNTHROID) 137 mcg tablet Take 1 tablet by mouth once daily. Take on empty stomach atorvastatin (LIPITOR) 80 mg tablet Take 1 tablet by mouth daily at bedtime. For cholesterol. albuterol HFA (VENTOLIN HFA) 90 mcg/actuation inhaler Inhale 2 Puffs as instructed every 4 hours as needed. hydroCHLOROthiazide (HYDRODIURIL, ESIDRIX) 12.5 mg capsule Take 1 capsule by mouth once daily. tiotropium bromide (SPIRIVA RESPIMAT) 2.5 mcg/actuation inhaler Inhale 2 Puffs as instructed once daily. nitroglycerin sublingual (NITROQUICK) 0.4 mg SL tablet Dissolve 1 tablet under the tongue as needed. FOR CHEST PAIN. IF NO RELIEF CALL 911 hydrocortisone 2.5 % cream Apply to scaly patches on face two times daily as needed for flares. Use 2 weeks on 1 week off albuterol (PROVENTIL) 2.5 mg /3 mL (0.083 %) nebulizer solution Use 3 mL via nebulizer every 4 hours as needed for wheezing/shortness of breath. Use over 5-15minutes. Nebulizer NEBULIZER FOR HOME USE. pantoprazole DR (PROTONIX) 40 mg tablet Take 1 tablet by mouth twice daily for 14 days. bismuth subsalicylate 525 mg tab Take 525 mg by mouth four times daily for 14 days. gabapentin (NEURONTIN) 300 mg capsule Take 2 capsules by mouth twice daily for 180 days. FAMILY HISTORY Problem Relation Age of Onset other (Pneumonia) Mother age 72 other (aneursm repair) Mother Prostate Cancer Father CArdiomegaly ( age 72) Aneurysm Brother Lung Cancer Brother Lung Cancer ( age 60's) Heart Brother HI x 2 other (aneurysm repair) Brother Social History Tobacco Use Smoking status: Every Day Packs/day: 0.50 Years: 46.00 Additional pack years: 0.00 Total pack years: 23.00 Types: Cigarettes Start date: 07/08/1973 Smokeless tobacco: Never Tobacco comments: Currently 0.5ppd 10/12/22 Vaping Use Vaping Use: Never used Substance Use Topics Alcohol use: No Drug use: Yes Types: Marijuana Comment: Off and on. Review of Systems Constitutional: Positive for chills, fever and malaise/fatigue. HENT: Positive for congestion and sore throat. Negative for ear pain and nosebleeds. Respiratory: Positive for cough. Negative for shortness of breath and wheezing. Musculoskeletal: Negative for neck pain. Objective Blood pressure 122/68, pulse 78, temperature 37.3 ?C (99.2 ?F), resp. rate 18, weight 96.6 kg (213 lb), SpO2 96 %. Physical Exam Constitutional: General: He is not in acute distress. Appearance: He is ill-appearing. He is not toxic-appearing or diaphoretic. HENT: Head: Normocephalic and atraumatic. Nose: Nose normal. Mouth/Throat: Pharynx: Uvula midline. No pharyngeal swelling, oropharyngeal exudate, posterior oropharyngeal erythema or uvula swelling. Eyes: Gene (more content not included)... [facility] 03-24-2023 Instructions Deacon Marshall APRN.ORCHARD SPRAYER - 03/24/2023 2:12 PM EDT How to Manage Common Symptoms Associated with COVID for Adults Fever- Fever is a temperature over 100.4 F and can occur when the body is fighting an infection. To help treat a fever: Drink plenty of fluids and stay well hydrated. Eat small amounts of easy to digest food. Rest. Your body needs rest to recover, but getting up and moving around the house frequently is a good idea. You should try to continue doing your normal daily activities (bathing, toileting, grooming, cooking), though you will probably feel tired, and need to rest often. Avoid any heavy activity or exercise, as this will increase your body temperature. Dress in light clothing and stay covered in a light sheet. Keep the room temperature cool. Take a slightly warm (not cold or cool) bath, or apply damp washcloths to the forehead and wrists. Cough- Cough is a common symptom associated with COVID and can be bothersome. To help treat a cough: Stay well hydrated. Try warm water or tea with lemon and/or honey to help soothe the cough. Use a humidifier to add moisture to the air. Try a product with menthol, like a cough drop or a rub for your chest such as Vicks, which can help reduce cough. Try cough drops. Avoid smoking and other strong odors or perfumes. Try breathing exercises to keep your lungs open and clear. Take a big deep breath through your nose and hold for 5 seconds before slowly releasing. Repeat frequently, while you are awake. Congestion- Runny nose or nasal congestion can occur with COVID. Treatment can help relieve symptoms: Try OTC nasal saline spray, or nasal saline rinse to relieve mucus congestion. Nasal strips can help keep nasal passages open, to increase airflow. Elevating your head with an extra pillow in bed can help reduce congestion. Using a humidifier can increase moisture in the air, and make breathing easier. Sore Throat- Another common symptom with COVID, can be managed at home by: Stay well hydrated. Gargle with salt water - mix teaspoon salt with 1 cup of warm water and gargle. This helps to loosen mucus in the back of the throat and may reduce discomfort. Try ice chips, popsicles or lozenges to soothe the throat. Nausea/Vomiting/Diarrhea- These are common symptoms, and staying hydrated is most important. If you are nauseous or vomiting, start with small sips of water every 10-15 minutes and increase as tolerated. You can try sucking an ice cube too. If tolerating, you can try pedialyte or Gatorade, or flat sprite or melinda-alejandro. Start slowly and increase as you are able to. Instead of meals, try smaller, more frequent snacks. Try eating bland foods like crackers, toast, rice, and applesauce. Avoid spicy, greasy or fried foods and dairy containing foods. Even if you aren't feeling hungry due to lack of smell or taste, it is important to try to take in some food when you are able. After drinking and eating, rest in an upright position for up to two hours as needed to help decrease nauseous feelings. Try closing your eyes, avoid moving and watching TV. Avoid strong odors that can make you feel more nauseated. When to seek emergency medical attention Look for emergency warning signs for COVID-19. If having any of these symptoms, seek emergency medical care immediately: Trouble breathing Persistent pain or pressure in the chest New confusion Inability to wake or stay awake Bluish lips or face *This list is not all possible symptoms. Please call your medical provider for any other symptoms that are severe or concerning to you. documented in this encounter [facility] 03-24-2023 History of Present illness Narrative Subjective HPI HPI Jennie Mccarthy is a 62 year old male who presents today for CC of cough, congestion. This started 4 days ago. Has tried otc medication for relief. Symptoms are worsened by nothing. Risk factors hx of emphysema/smoker. .Patient presents with: Cough: With body chills, sneezing, congestion. 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 Erectile dysfunction 02/27/2011 Esophageal reflux Gastroesophageal reflux Fatty liver GYNECOMASTIA 11/08/2006 Hemorrhage of rectum and anus 12/25/2009 bleeding hemorrhoids Hiatal hernia Hypertension 06/12/2013 Obesity, unspecified 11/04/2008 Obstructive sleep apnea CPAP Other and unspecified hyperlipidemia 11/05/2006 Other emphysema (HCC) Emphysema Pulmonary embolism (HCC) 05/19/2011 Substance abuse (HCC) Tobacco use disorder 10/24/2006 ex-smoker Unspecified constipation Constipation Unspecified hypothyroidism 11/05/2006 PAST SURGICAL HISTORY Procedure Laterality Date COLONOSCOPY 2005 COLONOSCOPY FLX DX W/COLLJ SPEC WHEN PFRMD 12/26/09 DIR RPR ANEURYSM ABDOMINAL AORTA 06/12/2013 Abd Aortic Aneurysm Repair, Endovascular ENDOVAS REPAIR ILIAC ANEURYSM Right 01/15/2020 R hypogastric coiling, R common femoral access FOCAL LASER RETINAL TUMOR OS (LEFT EYE) Left 10/2019 Retinal Tear HEMORRHOIDECTOMY INTERNAL RUBBER BAND LIGATIONS 11/2004 LAPS SURG CHOLECYSTECTOMY W/CHOLANGIOGRAPHY 07/07/07 TONSILLECTOMY PRIMARY/SECONDARY <AGE 11 1972 Tonsillectomy ALLERGIES Patient has no known allergies. MEDICATIONS ibuprofen (MOTRIN) 800 mg tablet Take 1 tablet by mouth once daily. apixaban (ELIQUIS) 5 mg tab(s) Take 1 tablet by mouth twice daily. lisinopril (ZESTRIL, PRINIVIL) 40 mg tablet Take 1 tablet by mouth once daily. levothyroxine (SYNTHROID) 137 mcg tablet Take 1 tablet by mouth once daily. Take on empty stomach atorvastatin (LIPITOR) 80 mg tablet Take 1 tablet by mouth daily at bedtime. For cholesterol. albuterol HFA (VENTOLIN HFA) 90 mcg/actuation inhaler Inhale 2 Puffs as instructed every 4 hours as needed. hydroCHLOROthiazide (HYDRODIURIL, ESIDRIX) 12.5 mg capsule Take 1 capsule by mouth once daily. tiotropium bromide (SPIRIVA RESPIMAT) 2.5 mcg/actuation inhaler Inhale 2 Puffs as instructed once daily. nitroglycerin sublingual (NITROQUICK) 0.4 mg SL tablet Dissolve 1 tablet under the tongue as needed. FOR CHEST PAIN. IF NO RELIEF CALL 911 hydrocortisone 2.5 % cream Apply to scaly patches on face two times daily as needed for flares. Use 2 weeks on 1 week off albuterol (PROVENTIL) 2.5 mg /3 mL (0.083 %) nebulizer solution Use 3 mL via nebulizer every 4 hours as needed for wheezing/shortness of breath. Use over 5-15minutes. Nebulizer NEBULIZER FOR HOME USE. pantoprazole DR (PROTONIX) 40 mg tablet Take 1 tablet by mouth twice daily for 14 days. bismuth subsalicylate 525 mg tab Take 525 mg by mouth four times daily for 14 days. gabapentin (NEURONTIN) 300 mg capsule Take 2 capsules by mouth twice daily for 180 days. FAMILY HISTORY Problem Relation Age of Onset other (Pneumonia) Mother age 72 other (aneursm repair) Mother Prostate Cancer Father CArdiomegaly ( age 72) Aneurysm Brother Lung Cancer Brother Lung Cancer ( age 60's) Heart Brother HI x 2 other (aneurysm repair) Brother Social History Tobacco Use Smoking status: Every Day Packs/day: 0.50 Years: 46.00 Additional pack years: 0.00 Total pack years: 23.00 Types: Cigarettes Start date: 07/08/1973 Smokeless tobacco: Never Tobacco comments: Currently 0.5ppd 10/12/22 Vaping Use Vaping Use: Never used Substance Use Topics Alcohol use: No Drug use: Yes Types: Marijuana Comment: Off and on. Review of Systems Constitutional: Positive for chills, fever and malaise/fatigue. HENT: Positive for congestion and sore throat. Negative for ear pain and nosebleeds. Respiratory: Positive for cough. Negative for shortness of breath and wheezing. Musculoskeletal: Negative for neck pain. Objective Blood pressure 122/68, pulse 78, temperature 37.3 C (99.2 F), resp. rate 18, weight 96.6 kg (213 lb), SpO2 96 %. Physical Exam Constitutional: General: He is not in acute distress. Appearance: He is ill-appearing. He is not toxic-appearing or diaphoretic. HENT: Head: Normocephalic and atraumatic. Nose: Nose normal. Mouth/Throat: Pharynx: Uvula midline. No pharyngeal swelling, oropharyngeal exudate, posterior oropharyngeal erythema or uvula swelling. Eyes: General: Lids are normal. No scleral icterus. Right eye: No discharge. Left eye: No discharge. Conjunctiva/sclera: Conjunctivae normal. Pupils: Pupils are equal, round, and reactive to light. Neck: Trachea: Trachea normal. Cardiovascular: Rate and Rhythm: Normal rate and regular rhythm. Heart sounds: Normal heart sounds. Pulmonary: Effort: Pulmonary effort is normal. Breath sounds: Examination of the right-lower field reveals decreased breath sounds. Examination of the left-lower field reveals decreased breath sounds. Decreased breath sounds present. Musculoskeletal: Cervical back: Normal range of motion and neck supple. Lymphadenopathy: Cervical: No cervical adenopathy. Right cervical: No superficial cervical adenopathy. Left cervical: No superficial cervical adenopathy. Skin: Findings: No rash. Neurological: Mental Status: He is alert and oriented to person, place, and time. ASSESSMENT/PLAN: 1. Lower resp. tract infection - ICD9: 519.8, ICD10: J22 (primary diagnosis) No xray at time of exam. - Discussed supportive care, given educational handout - Limit exposure to smoke and other inhaled irritants - Discussed possible red flags and when to seek medical attention - Follow up in 3-5 days or sooner if no better or worse -If you experience chest pain/shortness of breath go to ER ] - DOXYCYCLINE MONOHYDRATE 100 MG TABLET - PREDNISONE 20 MG TABLET - COVID & INFLUENZA A/B & RSV NAAT, ROUTINE - COVID NAAT, UPPER RESPIRATORY, ROUTINE - ROUTINE FLU A/B + RSV 2. Emphysema with both acute and chronic bronchitis (HCC) - ICD9: 491.22, ICD10: J44.0, J20.9 - PREDNISONE 20 MG TABLET - COVID & INFLUENZA A/B & RSV NAAT, ROUTINE - COVID NAAT, UPPER RESPIRATORY, ROUTINE - ROUTINE FLU A/B + RSV Deacon Marshall APRN.ORCHARD SPRAYER documented in this encounter [facility] 03-22-2023 Note HNO ID: [id number] Author: Corie Christensen RN Service: ? Author Type: Registered Nurse Type: Progress Notes Filed: 03/22/2023 10:29 AM Note Text: CDM Telephonic Outreach Provider Action/FYI 2nd attempt At next CDM Telephonic Outreach follow up on: Last [facility] CDM contact 12/06/22 Theron Martinez RN Needs Goals, ADLs and Falls assessments updated. Next CDM outreach after April PULM appointment(s). Contacted for: Routine Telephonic Outreach Contact made with patient: No, left message. Corie Christensen RN March 22, 2023 10:27 AM [facility] 03-21-2023 Note HNO ID: [id number] Author: Corie Christensen RN Service: ? Author Type: Registered Nurse Type: Progress Notes Filed: 03/22/2023 10:29 AM Note Text: CDM Telephonic Outreach Provider Action/FYI Contacted for: Routine Telephonic Outreach Contact made with patient: No, left message. Corie Christensen RN March 21, 2023 2:39 PM [facility] 03-21-2023 Note Patient Outreach (AM [facility]) JENNIE MCCARTHY Herman ([id number]) 1960 M Date Time Provider Department 03/21/23 CORIE CHRISTENSEN During your visit today, we recorded the following information about you: Corie Christensen RN 03/22/2023 10:29 AM Signed CDM Telephonic Outreach Provider Action/FYI Contacted for: Routine Telephonic Outreach Contact made with patient: No, left message. Corie Christensen RN March 21, 2023 2:39 PM Corie Christensen RN 03/22/2023 10:29 AM Signed CDM Telephonic Outreach Provider Action/FYI 2nd attempt At next CDM Telephonic Outreach follow up on: Last [facility] CDM contact 12/06/22 Theron Martinez RN Needs Goals, ADLs and Falls assessments updated. Next CDM outreach after April PUL appointment(s). Contacted for: Routine Telephonic Outreach Contact made with patient: No, left message. Corie Christensen RN March 22, 2023 10:27 AM Allergies As of Date: 03/21/2023 (No Known Allergies) Date Reviewed: 03/14/2023 Reviewed by: Sidney Mayer MA - Fully Assessed Reason for Visit: CDM [Other] Cmt: Check in call Prescriptions as of 03/22/2023 - pantoprazole DR (PROTONIX) 40 mg tablet Take 1 tablet by mouth twice daily for 14 days. - bismuth subsalicylate 525 mg tab Take 525 mg by mouth four times daily for 14 days. - ibuprofen (MOTRIN) 800 mg tablet Take 1 tablet by mouth once daily. - gabapentin (NEURONTIN) 300 mg capsule Take 2 capsules by mouth twice daily for 180 days. - apixaban (ELIQUIS) 5 mg tab(s) Take 1 tablet by mouth twice daily. - lisinopril (ZESTRIL, PRINIVIL) 40 mg tablet Take 1 tablet by mouth once daily. - levothyroxine (SYNTHROID) 137 mcg tablet Take 1 tablet by mouth once daily. Take on empty stomach - atorvastatin (LIPITOR) 80 mg tablet Take 1 tablet by mouth daily at bedtime. For cholesterol. - albuterol HFA (VENTOLIN HFA) 90 mcg/actuation inhaler Inhale 2 Puffs as instructed every 4 hours as needed. - hydroCHLOROthiazide (HYDRODIURIL, ESIDRIX) 12.5 mg capsule Take 1 capsule by mouth once daily. - tiotropium bromide (SPIRIVA RESPIMAT) 2.5 mcg/actuation inhaler Inhale 2 Puffs as instructed once daily. - nitroglycerin sublingual (NITROQUICK) 0.4 mg SL tablet Dissolve 1 tablet under the tongue as needed. FOR CHEST PAIN. IF NO RELIEF CALL 911 - hydrocortisone 2.5 % cream Apply to scaly patches on face two times daily as needed for flares. Use 2 weeks on 1 week off - albuterol (PROVENTIL) 2.5 mg /3 mL (0.083 %) nebulizer solution Use 3 mL via nebulizer every 4 hours as needed for wheezing/shortness of breath. Use over 5-15minutes. - Nebulizer NEBULIZER FOR HOME USE. Problem List As Of Date 03/21/2023 Noted Resolved Esophageal reflux [K21.9] Internal hemorrhoids without mention of complic*10/24/2006 01/02/2017 Tobacco use disorder [F17.200] 10/24/2006 09/04/2011 COPD with exacerbation (HCC) [J44.1] 10/24/2006 Hypothyroidism [E03.9] 11/05/2006 GYNECOMASTIA [N62] 11/08/2006 11/04/2008 Unspecified sleep apnea [G47.30] 04/03/2007 06/09/2013 Lung bullae (HCC) [J43.9] 05/28/2007 SCREENING FOR CONDITION NOS [Z13.9] 11/21/2007 11/04/2008 Obesity, unspecified [E66.9] 11/04/2008 06/08/2013 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/12/2013 Lumbago [M54.50] 03/08/2009 Patient Noncompliance [Z91.199] 02/03/2010 Erectile dysfunction [N52.9] 02/27/2011 Pulmonary embolism [I26.99] 05/19/2011 01/06/2013 Paroxysmal atrial flutter (HCC) [I48.92] 08/20/2011 Atrial fibrillation (HCC) [I48.91] 06/03/2012 06/18/2019 Cervicalgia [M54.2] 01/15/2013 04/13/2013 Headache [R51] 01/15/2013 04/13/2013 SUMMARY [V999.95] 06/08/2013 02/03/2014 History of pulmonary embolism [Z86.711] 06/08/2013 01/02/2017 History of smoking [Z87.891] 06/08/2013 06/09/2013 Hyperlipidemia [E78.5] 06/08/2013 Atelectasis [J98.11] 06/12/2013 02/03/2014 Hypertension [I10] 06/12/2013 Hypovolemia [E86.1] 06/12/2013 06/15/2013 VANIA (obstructive sleep apnea) AHI 71 [G47.33] 12/30/2013 Obesity [E66.9] 12/30/2013 05/11/2019 Nasal congestion [R09.81] 12/30/2013 08/27/2016 Visual impairment in both eyes [H54.3] 12/30/2013 08/27/2016 Physical deconditioning, multifactorial dyspnea*02/03/2014 08/27/2016 Lumbar spondylosis [M47.816] 02/05/2014 12/31/2017 DDD (degenerative disc disease), lumbar [M51.36]02/05/2014 12/31/2017 Sciatica [M54.30] 02/24/2014 Sebaceous cyst [L72.3] 09/03/2016 01/02/2017 Bronchitis [J40] 04/04/2017 Rosacea [L71.9] 04/04/2017 Obesity, Class II, BMI 35-39.9 [E66.9] 04/02/2018 04/05/2021 Iliac artery aneurysm, 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 [facility] 03-15-2023 Note HNO ID: [id number] Author: David King MD, PhD Service: ? Author Type: Physician Type: Progress Notes Filed: 03/15/2023 4:10 PM Note Text: [facility] STAFF PHYSICIAN NOTE OF PERSONAL INVOLVEMENT IN CARE I have reviewed the documentation obtained and documented by the Resident and I have personally performed a face to face assessment of the patient and have personally participated in the elaine components of the visit which includes medical decision making.. I have discussed the case and management of the patient's care. I wish to add the following findings which have been dictated and will be communicated back to the requesting physician. STAFF PHYSICIAN: David King MD, PhD DATE OF SERVICE: March 14, 2023 [facility] 03-15-2023 History of Present illness Narrative [facility] STAFF PHYSICIAN NOTE OF PERSONAL INVOLVEMENT IN CARE I have reviewed the documentation obtained and documented by the Resident and I have personally performed a face to face assessment of the patient and have personally participated in the elaine components of the visit which includes medical decision making.. I have discussed the case and management of the patient's care. I wish to add the following findings which have been dictated and will be communicated back to the requesting physician. STAFF PHYSICIAN: David King MD, PhD DATE OF SERVICE: March 14, 2023 Images from the original note were not included. [facility] THORACIC SURGERY OUTPATIENT CONSULT NOTE Jennie Mccarthy [id number] Requesting Provider: Sherri Thoracic Physician: David King MD Chief Complaint: dysphagia Impression: Jennie Mccarthy is a 62 yoM with extensive PMH as below including current smoker with COPD/ILD referred by GI for an opinion regarding management of chronic dysphagia. Has large known RUL bulla, with recent esophagram relatively normal aside from some tertiary contractions. Plan: - Obtain scheduled manometry - Likelihood of RUL bulla causing dysphagia from external compression very low - Additional recs pending above HPI: Jennie Mccarthy is a 62 year old White male with extensive PMH including PE on eliquis, AAA s/p EVARx2, VANIA, pAF, CAD, GERD, HTN, hypothyroidism, and COPD/ILD with long-term tobacco use referred by GI for an opinion regarding management of dysphagia. Pt notes dysphagia for many years, seeing GI Dr. Polanco who has treated pt for H pylori with some improvement. Also had recent esophagram which was relatively normal aside from some tertiary contractions. Per pt, he was referred here to rule out external compression of large RUL bulla on esophagus causing dysphagia. Pt continues to smoke but is down to half pack per day, pending repeat PFTs (previously preserved) and functional status testing. 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 Erectile dysfunction 02/27/2011 Esophageal reflux Gastroesophageal reflux Fatty liver GYNECOMASTIA 11/08/2006 Hemorrhage of rectum and anus 12/25/2009 bleeding hemorrhoids Hiatal hernia Hypertension 06/12/2013 Obesity, unspecified 11/04/2008 Obstructive sleep apnea CPAP Other and unspecified hyperlipidemia 11/05/2006 Other emphysema (HCC) Emphysema Pulmonary embolism (HCC) 05/19/2011 Substance abuse (HCC) Tobacco use disorder 10/24/2006 ex-smoker Unspecified constipation Constipation Unspecified hypothyroidism 11/05/2006 PAST SURGICAL HISTORY: PAST SURGICAL HISTORY Procedure Laterality Date COLONOSCOPY 2005 COLONOSCOPY FLX DX W/COLLJ SPEC WHEN PFRMD 12/26/09 DIR RPR ANEURYSM ABDOMINAL AORTA 06/12/2013 Abd Aortic Aneurysm Repair, Endovascular ENDOVAS REPAIR ILIAC ANEURYSM Right 01/15/2020 R hypogastric coiling, R common femoral access FOCAL LASER RETINAL TUMOR OS (LEFT EYE) Left 10/2019 Retinal Tear HEMORRHOIDECTOMY INTERNAL RUBBER BAND LIGATIONS 11/2004 LAPS SURG CHOLECYSTECTOMY W/CHOLANGIOGRAPHY 07/07/07 TONSILLECTOMY PRIMARY/SECONDARY <AGE 12 1972 Tonsillectomy FAMILY HISTORY: FAMILY HISTORY Problem Relation Age of Onset other (Pneumonia) Mother age 72 other (aneursm repair) Mother Prostate Cancer Father CArdiomegaly ( age 72) Aneurysm Brother Lung Cancer Brother Lung Cancer ( age 60's) Heart Brother HI x 2 other (aneurysm repair) Brother SOCIAL HISTORY: Social History Tobacco Use Smoking status: Every Day Packs/day: 0.50 Years: 46.00 Additional pack years: 0.00 Total pack years: 23.00 Types: Cigarettes Start date: 07/08/1973 Smokeless tobacco: Never Tobacco comments: Currently 0.5ppd 10/12/22 Vaping Use Vaping Use: Never used Substance Use Topics Alcohol use: No Drug use: Yes Types: Marijuana Comment: Off and on. MEDICATIONS: Prior to Admission Medications: pantoprazole DR (PROTONIX) 40 mg tablet Take 1 tablet by mouth twice daily for 14 days. ibuprofen (MOTRIN) 800 mg tablet Take 1 tablet by mouth once daily. gabapentin (NEURONTIN) 300 mg capsule Take 2 capsules by mouth twice daily for 180 days. apixaban (ELIQUIS) 5 mg tab(s) Take 1 tablet by mouth twice daily. lisinopril (ZESTRIL, PRINIVIL) 40 mg tablet Take 1 tablet by mouth once daily. levothyroxine (SYNTHROID) 137 mcg tablet Take 1 tablet by mouth once daily. Take on empty stomach atorvastatin (LIPITOR) 80 mg tablet Take 1 tablet by mouth daily at bedtime. For cholesterol. albuterol HFA (VENTOLIN HFA) 90 mcg/actuation inhaler Inhale 2 Puffs as instructed every 4 hours as needed. hydroCHLOROthiazide (HYDRODIURIL, ESIDRIX) 12.5 mg capsule Take 1 capsule by mouth once daily. tiotropium bromide (SPIRIVA RESPIMAT) 2.5 mcg/actuation inhaler Inhale 2 Puffs as instructed once daily. nitroglycerin sublingual (NITROQUICK) 0.4 mg SL tablet Dissolve 1 tablet under the tongue as needed. FOR CHEST PAIN. IF NO RELIEF CALL 911 hydrocortisone 2.5 % cream Apply to scaly patches on face two times daily as needed for flares. Use 2 weeks on 1 week off albuterol (PROVENTIL) 2.5 mg /3 mL (0.083 %) nebulizer solution Use 3 mL via nebulizer every 4 hours as needed for wheezing/shortness of breath. Use over 5-15minutes. Nebulizer NEBULIZER FOR HOME USE. bismuth subsalicylate 525 mg tab Take 525 mg by mouth four times daily for 14 days. ALLERGIES: ALLERGIES No Known Allergies Chemical Exposure: No Asbestos Exposure No COMPLETE REVIEW OF SYSTEMS Constitutional: No weight loss, malaise or fevers. HEENT: Negative for frequent or significant headaches Resp: Positive for shortness of breath on exertion Cardiovascular: Negative for chest pain, leg swelling or palpitations GI: Positive for dysphagia : No history of dysuria, frequency, or incontinence Endo: Negative for cold or heat intolerance, polyuria, polydipsia and goiter Heme/Lymph: Negative for prolonged bleeding, bruising easily or swollen nodes Neurologic: No history or headaches, syncope, paralysis, seizures or tremors Integumentary: Negative for lesions, rash, and itching. Additional systems reviewed: No additional systems reviewed PHYSICAL EXAM BP 146/77 Pulse 59 Temp (Src) 97.6 (Oral) Resp 14 Ht 5' 9 (1.75m) Wt 217 lb (98.4kg) SpO2 96% BMI 32.03 kg/(m^2). Constitutional: Well developed, obese HEENT: PERRLA Resp: RUL decr breath sounds Cardiovascular: Regular rate & rhythm GI: Soft Integumentary: Warm Musculoskeletal: No deformities Neurological/Psychiatric: Oriented to time, place & person Additional systems reviewed: No additional systems reviewed DATA: Radiology: IMPRESSION: Small hiatal hernia Tertiary contractions. Otherwise normal esophagram. Production Superintendent Hydro: [place] Transcribe Date/Time: Mar 07 2023 1:12P Dictated by : JEFFREY GREEN MD This examination was interpreted and the report reviewed and electronically signed by: JEFFREY GREEN MD on Mar 07 2023 1:17PM EST Results-Findings * * *Final Report* * * DATE OF EXAM: Mar 07 2023 9:49AM MDX [id number] - XR ESOPHAGRAM / PROCEDURE REASON: multiple diagnoses * * * * Physician Interpretation * * * * EXAM: XR ESOPHAGRAM EXAM DATE: 03/07/2023 9:49 AM CLINICAL HISTORY: Dysphagia, unspecified type Odynophagia COMPARISON: CTA chest 02/07/2023 TECHNIQUE: A double contrast esophagram was performed. The patient ingested 300 mL of EZHD without difficulty. Total Air Kerma: 21.7 mGy Total Fluoroscopy Time: 1:36 min:sec RESULT: The swallowing mechanism and esophagus and visualized stomach appear normal. Tertiary contractions are noted. Small hiatal hernia measuring up to 3.3 cm in maximum dimension. Otherwise no esophageal stricture, dilatation or abnormal impression identified. Gastroesophageal reflux was not witnessed during the course of the study. The attending radiologist was present for the entire exam. IMPRESSION: Findings are suggestive of interstitial lung disease. The pattern and distribution are compatible with UIP. Very large bulla in the right upper lobe. Production Superintendent Hydro: [facility] Transcribe Date/Time: Oct 10 2022 1:18P Dictated by : PERLA MONTES MD This examination was interpreted and the report reviewed and electronically signed by: PERLA MONTES MD on Oct 10 2022 1:32PM EST Results-Findings * * *Final Report* * * DATE OF EXAM: Oct 09 2022 3:29PM [facility] [id number] - CT CHEST WO IVCON / PROCEDURE REASON: Interstitial lung disease * * * * Physician Interpretation * * * * EXAMINATION: CHEST CT WITHOUT CONTRAST CLINICAL HISTORY: Interstitial lung disease. Technique: Spiral CT acquisition of the chest from the thoracic inlet to the upper abdomen without contrast. The study was performed following HRCT protocol. MQ: [id number] CT Radiation dose: Integrated Dose-length product (DLP) for this visit = 299 mGy*cm CT Dose Reduction Employed: Automated exposure control(AEC) and iterative recon Comparison: CT chest on 11/03/2021 RESULT: Limitations: None. Lines, tubes, and devices: None. Lung parenchyma and airways: The central airways are patent. There is a very large bulla in the right upper lung measuring 13 x 10 cm. There are reticular opacities in the bilateral lungs predominantly involving the peripheral areas with honeycombing. Traction bronchiectasis is identified. No significant architectural distortion. No solid mass or consolidative opacities. Pleural space: No pleural effusions or pneumothorax. Lower neck, lymph nodes, and mediastinum: The imaged thyroid gland is normal. No lymphadenopathy in the supraclavicular, axillary, mediastinal, or hilar regions. Heart, pericardium, and thoracic vessels: Stable cardiac chambers, thoracic aorta and central pulmonary arteries. There is mild focal bulging along the left aspect of the aortic arch, unchanged. No pericardial effusion/thickening. Bones and soft tissues: No destructive bone lesion. Extensive osteophyte formation seen in the spine. Chest wall soft tissue remains unremarkable. Upper abdomen: Limited study through the upper abdomen demonstrates no interval changes. D[employer] Worker (topogram) images: No additional findings. I have personally reviewed the following images/data: CT scan and Esophagram Outside Paper Medical Records Review personally performed by: Arnaldo Osullivan SIGNATURE: Marilee Osullivan MD DATE of SERVICE: 03/14/2023 TIME of SERVICE: 11:36 AM documented in this encounter [facility] 03-14-2023 Note HNO ID: [id number] Author: Corie Christensen RN Service: ? Author Type: Registered Nurse Type: Progress Notes Filed: 03/14/2023 1:56 PM Note Text: Care Coordination Deferred Outreach Provider Action / FYI: At next [facility] Telephonic Outreach follow up on: Last [facility] CD contact 12/06/22 Theron Martinez RN Deferred outreach to patient at this time due to: Visit with provider today Thoracic Surgery for chronic dysphagia Next Outreach date: 03/21/23 Corie Christensen RN March 14, 2023 1:54 PM [facility] 03-14-2023 Note Patient Outreach (AM [facility]) JENNIE MCCARTHY ([id number]) 1960 M Date Time Provider Department 03/14/23 CORIE CHRISTENSEN During your visit today, we recorded the following information about you: Corie Christensen RN 03/14/2023 1:56 PM Signed Care Coordination Deferred Outreach Provider Action / FYI: At next [facility] Telephonic Outreach follow up on: Last [facility]M contact 12/06/22 Theron Martinez RN Deferred outreach to patient at this time due to: Visit with provider today Thoracic Surgery for chronic dysphagia Next Outreach date: 03/21/23 Corie Christensen RN March 14, 2023 1:54 PM Allergies As of Date: 03/14/2023 (No Known Allergies) Date Reviewed: 03/14/2023 Reviewed by: Sidney Mayer MA - Fully Assessed Reason for Visit: CDM [Other] Cmt: Deferred Prescriptions as of 03/14/2023 - pantoprazole DR (PROTONIX) 40 mg tablet Take 1 tablet by mouth twice daily for 14 days. - bismuth subsalicylate 525 mg tab Take 525 mg by mouth four times daily for 14 days. - ibuprofen (MOTRIN) 800 mg tablet Take 1 tablet by mouth once daily. - gabapentin (NEURONTIN) 300 mg capsule Take 2 capsules by mouth twice daily for 180 days. - apixaban (ELIQUIS) 5 mg tab(s) Take 1 tablet by mouth twice daily. - lisinopril (ZESTRIL, PRINIVIL) 40 mg tablet Take 1 tablet by mouth once daily. - levothyroxine (SYNTHROID) 137 mcg tablet Take 1 tablet by mouth once daily. Take on empty stomach - atorvastatin (LIPITOR) 80 mg tablet Take 1 tablet by mouth daily at bedtime. For cholesterol. - albuterol HFA (VENTOLIN HFA) 90 mcg/actuation inhaler Inhale 2 Puffs as instructed every 4 hours as needed. - hydroCHLOROthiazide (HYDRODIURIL, ESIDRIX) 12.5 mg capsule Take 1 capsule by mouth once daily. - tiotropium bromide (SPIRIVA RESPIMAT) 2.5 mcg/actuation inhaler Inhale 2 Puffs as instructed once daily. - nitroglycerin sublingual (NITROQUICK) 0.4 mg SL tablet Dissolve 1 tablet under the tongue as needed. FOR CHEST PAIN. IF NO RELIEF CALL 911 - hydrocortisone 2.5 % cream Apply to scaly patches on face two times daily as needed for flares. Use 2 weeks on 1 week off - albuterol (PROVENTIL) 2.5 mg /3 mL (0.083 %) nebulizer solution Use 3 mL via nebulizer every 4 hours as needed for wheezing/shortness of breath. Use over 5-15minutes. - Nebulizer NEBULIZER FOR HOME USE. Problem List As Of Date 03/14/2023 Noted Resolved Esophageal reflux [K21.9] Internal hemorrhoids without mention of complic*10/24/2006 01/02/2017 Tobacco use disorder [F17.200] 10/24/2006 09/04/2011 COPD with exacerbation (HCC) [J44.1] 10/24/2006 Hypothyroidism [E03.9] 11/05/2006 GYNECOMASTIA [N62] 11/08/2006 11/04/2008 Unspecified sleep apnea [G47.30] 04/03/2007 06/09/2013 Lung bullae (HCC) [J43.9] 05/28/2007 SCREENING FOR CONDITION NOS [Z13.9] 11/21/2007 11/04/2008 Obesity, unspecified [E66.9] 11/04/2008 06/08/2013 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/12/2013 Lumbago [M54.50] 03/08/2009 Patient Noncompliance [Z91.199] 02/03/2010 Erectile dysfunction [N52.9] 02/27/2011 Pulmonary embolism [I26.99] 05/19/2011 01/06/2013 Paroxysmal atrial flutter (HCC) [I48.92] 08/20/2011 Atrial fibrillation (HCC) [I48.91] 06/03/2012 06/18/2019 Cervicalgia [M54.2] 01/15/2013 04/13/2013 Headache [R51] 01/15/2013 04/13/2013 SUMMARY [V999.95] 06/08/2013 02/03/2014 History of pulmonary embolism [Z86.711] 06/08/2013 01/02/2017 History of smoking [Z87.891] 06/08/2013 06/09/2013 Hyperlipidemia [E78.5] 06/08/2013 Atelectasis [J98.11] 06/12/2013 02/03/2014 Hypertension [I10] 06/12/2013 Hypovolemia [E86.1] 06/12/2013 06/15/2013 VANIA (obstructive sleep apnea) AHI 71 [G47.33] 12/30/2013 Obesity [E66.9] 12/30/2013 05/11/2019 Nasal congestion [R09.81] 12/30/2013 08/27/2016 Visual impairment in both eyes [H54.3] 12/30/2013 08/27/2016 Physical deconditioning, multifactorial dyspnea*02/03/2014 08/27/2016 Lumbar spondylosis [M47.816] 02/05/2014 12/31/2017 DDD (degenerative disc disease), lumbar [M51.36]02/05/2014 12/31/2017 Sciatica [M54.30] 02/24/2014 Sebaceous cyst [L72.3] 09/03/2016 01/02/2017 Bronchitis [J40] 04/04/2017 Rosacea [L71.9] 04/04/2017 Obesity, Class II, BMI 35-39.9 [E66.9] 04/02/2018 04/05/2021 Iliac artery aneurysm, 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] 01/13/2020 Nicotine use disorder, F17.2 [F17.200] 01/14/2020 Tinea cruris [B35.6] 12/19/2020 Impaired fasting glucose [R73.01] 12/26/2020 Obesity, Class I, BMI 30-34.9 [E66.9] 03/23/2021 Vitamin D deficiency [E55.9] 04/05/2021 Chronic otitis externa of both ears [H60.63] 09/21/2021 Interstitial pulmonary disease (HCC) [J84.9] 11/07/2021 Dysphagia [R13.10] 02/08/2023 Encounter Status:Closed by CORIE CHRISTENSEN on 03/14/23 [facility] 03-14-2023 Note HNO ID: [id number] Author: David King MD, PhD Service: Thoracic Surgery Author Type: Physician Type: Progress Notes Filed: 03/18/2023 7:57 PM Note Text: [place] [address] [place] CLINIC NOTE NAME: JENNIE MCCARTHY [facility] #: [id number] DATE: 03/14/2023 AGE: 62 PHYSICIAN: David King M.D., Ph.D. I had the sincere pleasure of seeing the patient in my Thoracic Surgery Clinic. This very pleasant 62-year-old man was seen today for an opinion regarding dysphagia. The patient's medical history and review of systems have been studied. I have also independently reviewed images from CT scans as well as a recent barium esophagram. I have studied pulmonary function tests from last year as well as photographs from a recent EGD. I have shared my thoughts with the patient in detail. In brief, the patient is a 62-year-old man who has a 45-year history of tobacco smoking, now down to roughly a half pack a day, but perhaps a 50 pack-year cumulative amount. The patient complains of intermittent dysphagia that he cannot associate with a significant type of food or event. The dysphagia presents more as a globus sensation for him. He feels that there is food getting stuck and points to his cervical-esophageal area; however, serial barium esophagrams demonstrate no evidence of obstruction. A CT scan also demonstrates no extrinsic process impacting the esophagus safe for a question of a right apical bulla. There is a little doubt that the patient has a large bulla in his right lung, but compression of the esophagus from this type of epiphenomenon would be novel WITHOUT radiographic findings. Certainly, compression of abnormal anatomy on the esophagus has been reported (dysphagia lusoria), but never from a bulla. The patient also has interstitial lung disease changes, which are evident in addition to the bulla. IMPRESSION: Likely subtle motor problem of the esophagus and manometry might help sort this out. I will await for Dr. Polanco to complete his manometry and if there is some focal area of high pressure zone, then it is remotely possible that myotomy might be brought into play. However, based on this gentleman's swallow being essentially normal, I doubt that any obvious tissue will be identified on manometry. Nonetheless, I have given him some peppermint candies to enjoy and hopefully this will palliate any subtle spasm that might be occurring. David King M.D., Ph.D. SM:[id number] /[id number] [facility] 03-14-2023 Note HNO ID: [id number] Author: Marilee Osullivan MD Service: ? Author Type: Fellow Type: Progress Notes Filed: 03/15/2023 4:10 PM Note Text: [facility] THORACIC SURGERY OUTPATIENT CONSULT NOTE Jennie Mccarthy [id number] Requesting Provider: Sherri Thoracic Physician: David King MD Chief Complaint: dysphagia Impression: Jennie Mccarthy is a 62 yoM with extensive PMH as below including current smoker with COPD/ILD referred by GI for an opinion regarding management of chronic dysphagia. Has large known RUL bulla, with recent esophagram relatively normal aside from some tertiary contractions. Plan: - Obtain scheduled manometry - Likelihood of RUL bulla causing dysphagia from external compression very low - Additional recs pending above HPI: Jennie Mccarthy is a 62 year old White male with extensive PMH including PE on eliquis, AAA s/p EVARx2, VANIA, pAF, CAD, GERD, HTN, hypothyroidism, and COPD/ILD with long-term tobacco use referred by GI for an opinion regarding management of dysphagia. Pt notes dysphagia for many years, seeing GI Dr. Polanco who has treated pt for H pylori with some improvement. Also had recent esophagram which was relatively normal aside from some tertiary contractions. Per pt, he was referred here to rule out external compression of large RUL bulla on esophagus causing dysphagia. Pt continues to smoke but is down to half pack per day, pending repeat PFTs (previously preserved) and functional status testing. 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 Erectile dysfunction 02/27/2011 Esophageal reflux Gastroesophageal reflux Fatty liver GYNECOMASTIA 11/08/2006 Hemorrhage of rectum and anus 12/25/2009 bleeding hemorrhoids Hiatal hernia Hypertension 06/12/2013 Obesity, unspecified 11/04/2008 Obstructive sleep apnea CPAP Other and unspecified hyperlipidemia 11/05/2006 Other emphysema (HCC) Emphysema Pulmonary embolism (HCC) 05/19/2011 Substance abuse (HCC) Tobacco use disorder 10/24/2006 ex-smoker Unspecified constipation Constipation Unspecified hypothyroidism 11/05/2006 PAST SURGICAL HISTORY: PAST SURGICAL HISTORY Procedure Laterality Date COLONOSCOPY 2005 COLONOSCOPY FLX DX W/COLLJ SPEC WHEN PFRMD 12/26/09 DIR RPR ANEURYSM ABDOMINAL AORTA 06/12/2013 Abd Aortic Aneurysm Repair, Endovascular ENDOVAS REPAIR ILIAC ANEURYSM Right 01/15/2020 R hypogastric coiling, R common femoral access FOCAL LASER RETINAL TUMOR OS (LEFT EYE) Left 10/2019 Retinal Tear HEMORRHOIDECTOMY INTERNAL RUBBER BAND LIGATIONS 11/2004 LAPS SURG CHOLECYSTECTOMY W/CHOLANGIOGRAPHY 07/07/07 TONSILLECTOMY PRIMARY/SECONDARY Tonsillectomy FAMILY HISTORY: FAMILY HISTORY Problem Relation Age of Onset other (Pneumonia) Mother age 72 other (aneursm repair) Mother Prostate Cancer Father CArdiomegaly ( age 72) Aneurysm Brother Lung Cancer Brother Lung Cancer ( age 60's) Heart Brother HI x 2 other (aneurysm repair) Brother SOCIAL HISTORY: Social History Tobacco Use Smoking status: Every Day Packs/day: 0.50 Years: 46.00 Additional pack years: 0.00 Total pack years: 23.00 Types: Cigarettes Start date: 07/08/1973 Smokeless tobacco: Never Tobacco comments: Currently 0.5ppd 10/12/22 Vaping Use Vaping Use: Never used Substance Use Topics Alcohol use: No Drug use: Yes Types: Marijuana Comment: Off and on. MEDICATIONS: Prior to Admission Medications: pantoprazole DR (PROTONIX) 40 mg tablet Take 1 tablet by mouth twice daily for 14 days. ibuprofen (MOTRIN) 800 mg tablet Take 1 tablet by mouth once daily. gabapentin (NEURONTIN) 300 mg capsule Take 2 capsules by mouth twice daily for 180 days. apixaban (ELIQUIS) 5 mg tab(s) Take 1 tablet by mouth twice daily. lisinopril (ZESTRIL, PRINIVIL) 40 mg tablet Take 1 tablet by mouth once daily. levothyroxine (SYNTHROID) 137 mcg tablet Take 1 tablet by mouth once daily. Take on empty stomach atorvastatin (LIPITOR) 80 mg tablet Take 1 tablet by mouth daily at bedtime. For cholesterol. albuterol HFA (VENTOLIN HFA) 90 mcg/actuation inhaler Inhale 2 Puffs as instructed every 4 hours as needed. hydroCHLOROthiazide (HYDRODIURIL, ESIDRIX) 12.5 mg capsule Take 1 capsule by mouth once daily. tiotropium bromide (SPIRIVA RESPIMAT) 2.5 mcg/actuation inhaler Inhale 2 Puffs as instructed once daily. nitroglycerin subl (more content not included)... [facility] 03-08-2023 Note HNO ID: [id number] Author: Kev Villafuerte MD Service: ? Author Type: Physician Type: Progress Notes Filed: 05/23/2023 5:12 PM Note Text: DEPARTMENT OF GASTROENTEROLOGY - FOLLOW UP VISIT HISTORY OF PRESENT ILLNESS Jennie Mccarthy is a 62 year old male who presents today for follow up of dysphagia and H.pylori treatment. He was seen by me on 02/01 when he complained of chronic dysphagia to solids, liquids and pills. Dysphagia was associated with odynophagia, choking and eructations. His significant past medical history include A-fib on Eliquis, COPD (60 pack-years, current smoker) and ILD with known large right upper lobe bulla 13 x 10 cm. He was seen by ENT prior to the visit and had normal flexible laryngoscopy. EGD, MBS, Barium esophagram were ordered first with a potential plan for thoracic surgery consult for surgical intervention of the large RUL bulla. Since the last visit: He continues to have dysphagia to solids, liquids and pills. EGD results with biopsy which showed positive H.pylori. He has a history of macrolide use due to respiratory tract infection and was started on Bismuth quadruple therapy on 02/16. He visited ED due to dehydration and dyspnea which improved after supplemental O2 and IVF on 02/24. He did not restart the quadruple therapy until 03/07 and still has 4 more days for finish the 2 week course. Barium esophagram done yesterday did not show structural abnormalities but showed tertiary contractions which was not found in 2021. He has an appointment with thoracic surgery on 03/14. He also states that his dysphagia and odynophagia have mildly improved after starting the quadruple therapy for H.pylori. Current Outpatient Medications Medication Sig Dispense Refill ibuprofen (MOTRIN) 800 mg tablet Take 1 tablet by mouth once daily. 30 tablet 2 gabapentin (NEURONTIN) 300 mg capsule Take 2 capsules by mouth twice daily for 180 days. 120 capsule 5 apixaban (ELIQUIS) 5 mg tab(s) Take 1 tablet by mouth twice daily. 180 tablet 3 lisinopril (ZESTRIL, PRINIVIL) 40 mg tablet Take 1 tablet by mouth once daily. 90 tablet 3 levothyroxine (SYNTHROID) 137 mcg tablet Take 1 tablet by mouth once daily. Take on empty stomach 90 tablet 3 atorvastatin (LIPITOR) 80 mg tablet Take 1 tablet by mouth daily at bedtime. For cholesterol. 90 tablet 3 albuterol HFA (VENTOLIN HFA) 90 mcg/actuation inhaler Inhale 2 Puffs as instructed every 4 hours as needed. 18 g 3 tiotropium bromide (SPIRIVA RESPIMAT) 2.5 mcg/actuation inhaler Inhale 2 Puffs as instructed once daily. 1 Inhaler 5 nitroglycerin sublingual (NITROQUICK) 0.4 mg SL tablet Dissolve 1 tablet under the tongue as needed. FOR CHEST PAIN. IF NO RELIEF CALL 911 25 tablet 1 hydrocortisone 2.5 % cream Apply to scaly patches on face two times daily as needed for flares. Use 2 weeks on 1 week off 30 g 2 albuterol (PROVENTIL) 2.5 mg /3 mL (0.083 %) nebulizer solution Use 3 mL via nebulizer every 4 hours as needed for wheezing/shortness of breath. Use over 5-15minutes. 3 mL 0 Nebulizer NEBULIZER FOR HOME USE. [address] (PROTONIX) 40 mg tablet Take 1 tablet by mouth twice daily for 14 days. 28 tablet 0 bismuth subsalicylate 525 mg tab Take 525 mg by mouth four times daily for 14 days. 56 tablet 0 hydroCHLOROthiazide (HYDRODIURIL, ESIDRIX) 12.5 mg capsule Take 1 capsule by mouth once daily. 90 capsule 3 No current facility-administered medications for this visit. ALLERGIES Allergen Reactions Prednisone Itching Pt has taken since w/o issues PAST MEDICAL HISTORY PAST MEDICAL HISTORY Diagnosis Date AAA (abdominal aortic aneurysm) ([facility]) 03/02/2009 Atrial fibrillation (HCC) Atrial flutter (HCC) 08/20/2011 Chronic cholecystitis Coronary artery disease DDD (degenerative disc disease), lumbar 02/05/2014 Emphysematous bleb (HCC) 05/28/2007 Right upper lung. Erectile dysfunction 02/27/2011 Esophageal reflux Gastroesophageal reflux Fatty liver GYNECOMASTIA 11/08/2006 Hemorrhage of rectum and anus 12/25/2009 bleeding hemorrhoids Hiatal hernia Hypertension 06/12/2013 Obesity, unspecified 11/04/2008 Obstructive sleep apnea CPAP Other and unspecified hyperlipidemia 11/05/2006 Other emphysema (HCC) Emphysema Pulmonary embolism (HCC) 05/19/2011 Substance abuse ([facility]) Tobacco use disorder 10/24/2006 ex-smoker Unspecified constipation Constipation Unspecified hypothyroidism 11/05/2006 PHYSICAL EXAMINATION BP 113/68 Pulse 58 Temp (Src) 97.3 (Temporal) Ht 5' 9 (1.75m) Wt 217 lb (98.4kg) SpO2 96% BMI 32.03 kg/(m2). General Appearance: alert, oriented x 3, pleasant and in no acute distress Eyes: PERRLA, no scleral icterus Oropharynx:Lips, tongue, and oral mucosa normal. There is no thrush or oral ulcers. Lungs: breath sounds clear to auscultation bilaterally, no crackles, rhonchi, or wheezes Heart: regular rate and rhythm, no murmurs or gallops A (more content not included)... [facility] 03-08-2023 Instructions Arjun Polanco MD - 03/08/2023 11:08 AM EDT -I ordered esophageal manometry to assess motility in your food pipe. -I will call you in a month to test for H.pylori infection. -Please keep the appointment with the thoracic surgery. documented in this encounter [facility] 03-08-2023 History of Present illness Narrative DEPARTMENT OF GASTROENTEROLOGY - FOLLOW UP VISIT HISTORY OF PRESENT ILLNESS Jennie Mccarthy is a 62 year old male who presents today for follow up of dysphagia and H.pylori treatment. He was seen by me on 02/01 when he complained of chronic dysphagia to solids, liquids and pills. Dysphagia was associated with odynophagia, choking and eructations. His significant past medical history include A-fib on Eliquis, COPD (60 pack-years, current smoker) and ILD with known large right upper lobe bulla 13 x 10 cm. He was seen by ENT prior to the visit and had normal flexible laryngoscopy. EGD, MBS, Barium esophagram were ordered first with a potential plan for thoracic surgery consult for surgical intervention of the large RUL bulla. Since the last visit: He continues to have dysphagia to solids, liquids and pills. EGD results with biopsy which showed positive H.pylori. He has a history of macrolide use due to respiratory tract infection and was started on Bismuth quadruple therapy on 02/16. He visited ED due to dehydration and dyspnea which improved after supplemental O2 and IVF on 02/24. He did not restart the quadruple therapy until 03/07 and still has 4 more days for finish the 2 week course. Barium esophagram done yesterday did not show structural abnormalities but showed tertiary contractions which was not found in 2021. He has an appointment with thoracic surgery on 03/14. He also states that his dysphagia and odynophagia have mildly improved after starting the quadruple therapy for H.pylori. Current Outpatient Medications Medication Sig Dispense Refill ibuprofen (MOTRIN) 800 mg tablet Take 1 tablet by mouth once daily. 30 tablet 2 gabapentin (NEURONTIN) 300 mg capsule Take 2 capsules by mouth twice daily for 180 days. 120 capsule 5 apixaban (ELIQUIS) 5 mg tab(s) Take 1 tablet by mouth twice daily. 180 tablet 3 lisinopril (ZESTRIL, PRINIVIL) 40 mg tablet Take 1 tablet by mouth once daily. 90 tablet 3 levothyroxine (SYNTHROID) 137 mcg tablet Take 1 tablet by mouth once daily. Take on empty stomach 90 tablet 3 atorvastatin (LIPITOR) 80 mg tablet Take 1 tablet by mouth daily at bedtime. For cholesterol. 90 tablet 3 albuterol HFA (VENTOLIN HFA) 90 mcg/actuation inhaler Inhale 2 Puffs as instructed every 4 hours as needed. 18 g 3 tiotropium bromide (SPIRIVA RESPIMAT) 2.5 mcg/actuation inhaler Inhale 2 Puffs as instructed once daily. 1 Inhaler 5 nitroglycerin sublingual (NITROQUICK) 0.4 mg SL tablet Dissolve 1 tablet under the tongue as needed. FOR CHEST PAIN. IF NO RELIEF CALL 911 25 tablet 1 hydrocortisone 2.5 % cream Apply to scaly patches on face two times daily as needed for flares. Use 2 weeks on 1 week off 30 g 2 albuterol (PROVENTIL) 2.5 mg /3 mL (0.083 %) nebulizer solution Use 3 mL via nebulizer every 4 hours as needed for wheezing/shortness of breath. Use over 5-15minutes. 3 mL 0 Nebulizer NEBULIZER FOR HOME USE. [address] (PROTONIX) 40 mg tablet Take 1 tablet by mouth twice daily for 14 days. 28 tablet 0 bismuth subsalicylate 525 mg tab Take 525 mg by mouth four times daily for 14 days. 56 tablet 0 hydroCHLOROthiazide (HYDRODIURIL, ESIDRIX) 12.5 mg capsule Take 1 capsule by mouth once daily. 90 capsule 3 No current facility-administered medications for this visit. ALLERGIES Allergen Reactions Prednisone Itching Pt has taken since w/o issues PAST MEDICAL HISTORY PAST MEDICAL HISTORY Diagnosis Date AAA (abdominal aortic aneurysm) ([facility]) 03/02/2009 Atrial fibrillation (HCC) Atrial flutter ([facility]) 08/20/2011 Chronic cholecystitis Coronary artery disease DDD (degenerative disc disease), lumbar 02/05/2014 Emphysematous bleb ([facility]) 05/28/2007 Right upper lung. Erectile dysfunction 02/27/2011 Esophageal reflux Gastroesophageal reflux Fatty liver GYNECOMASTIA 11/08/2006 Hemorrhage of rectum and anus 12/25/2009 bleeding hemorrhoids Hiatal hernia Hypertension 06/12/2013 Obesity, unspecified 11/04/2008 Obstructive sleep apnea CPAP Other and unspecified hyperlipidemia 11/05/2006 Other emphysema (HCC) Emphysema Pulmonary embolism ([facility]) 05/19/2011 Substance abuse ([facility]) Tobacco use disorder 10/24/2006 ex-smoker Unspecified constipation Constipation Unspecified hypothyroidism 11/05/2006 PHYSICAL EXAMINATION BP 113/68 Pulse 58 Temp (Src) 97.3 (Temporal) Ht 5' 9 (1.75m) Wt 217 lb (98.4kg) SpO2 96% BMI 32.03 kg/(m^2). General Appearance: alert, oriented x 3, pleasant and in no acute distress Eyes: PERRLA, no scleral icterus Oropharynx:Lips, tongue, and oral mucosa normal. There is no thrush or oral ulcers. Lungs: breath sounds clear to auscultation bilaterally, no crackles, rhonchi, or wheezes Heart: regular rate and rhythm, no murmurs or gallops Abdomen: ventral hernia, which increases in size with straining, no tenderness or discoloration, soft, non-tender, non-distended Rectal exam: deferred Extremities: no cyanosis or edema Skin: no jaundice, no spider angiomas, no palmar erythema Neuro: alert, oriented x 3, pleasant and in no acute distress IMAGING STUDIES AND PROCEDURES (NEW) Barium esophagram (03/07/2023) Small hiatal hernia Tertiary contractions. Otherwise normal esophagram. EGD (02/08/2023) Impression: - Z-line regular, 40 cm from the incisors. Biopsied. - 2 cm hiatal hernia. - Normal stomach. Biopsied. - Normal examined duodenum. Biopsied. Pathology: A. Duodenum, biopsy: - Small intestine mucosa with with no significant histopathologic findings. B. Stomach, biopsy: - Gastric body mucosa with chronic Helicobacter pylori-associated gastritis. - Helicobacter pylori organisms are identified on H&E stain. C. Esophagus, lower, biopsy: - Squamous mucosa with no significant histopathologic findings. D. Esophagus, mid, biopsy: - Squamous mucosa with no significant histopathologic findings. MBS (02/01/23) Impression: Evidence of: Oropharyngeal dysphagia-minimal deficits, Concern for possible esophageal impairment An elevated risk for aspiration: No Swallow Efficiency: Preserved (Old) Flexible laryngoscopy (01/10/2023, Dr. Tapia) Flexible laryngoscopy was performed because of the following indication: hyperactive gag and dysphagia and odynophagia: After spraying the nose with 4% xylocaine and 0.5% oxymetazoline, the flexible scope was placed in a transnasal fashion. The nasopharynx, oropharynx, hypopharynx including the pyriform sinuses were normal. The base of tongue showed no gross lesions. The larynx itself showed no lesions. The vocal cords moved well bilaterally. CT chest wo IV contrast (10/10/2022) RESULT: Limitations: None. Lines, tubes, and devices: None. Lung parenchyma and airways: The central airways are patent. There is a very large bulla in the right upper lung measuring 13 x 10 cm. There are reticular opacities in the bilateral lungs predominantly involving the peripheral areas with honeycombing. Traction bronchiectasis is identified. No significant architectural distortion. No solid mass or consolidative opacities. Pleural space: No pleural effusions or pneumothorax. Lower neck, lymph nodes, and mediastinum: The imaged thyroid gland is normal. No lymphadenopathy in the supraclavicular, axillary, mediastinal, or hilar regions. Heart, pericardium, and thoracic vessels: Stable cardiac chambers, thoracic aorta and central pulmonary arteries. There is mild focal bulging along the left aspect of the aortic arch, unchanged. No pericardial effusion/thickening. Bones and soft tissues: No destructive bone lesion. Extensive osteophyte formation seen in the spine. Chest wall soft tissue remains unremarkable. Upper abdomen: Limited study through the upper abdomen demonstrates no interval changes. [employer] Work[employer] (topogram) images: No additional findings. IMPRESSION: Findings are suggestive of interstitial lung disease. The pattern and distribution are compatible with UIP. Very large bulla in the right upper lobe. Barium Esophagram (12/07/2021) Indication: Dysphagia A barium esophagram was performed. There is normal course and caliber of the esophagus. No mass or stricture is visualized. There are no esophageal diverticula. Small sliding hiatal hernia. The patient swallowed a barium tablet without difficulty. Impression: Small sliding hiatal hernia IMPRESSION Mr. Mccarthy is a 62-year-old male with a history of COPD, ILD and a large RUL bulla ([id number]), A-fib on [facility] who was initially seen at GI clinic on 02/01 for an evaluation of chronic dysphagia for the past 3 years. EGD and Barium esophagram did not show external compression and the exact etiology of dysphagia has yet to be elucidated. Receiving treatment for H.pylori. PLAN: #Dysphagia -Unclear etiology. Tertiary contractions noted in the Ba esophagram is non-peristaltic contraction waves that leave segmental indentation on the Barium column, with unknown physiologic role. Will order esophageal manometry to rule out esophageal motility disorders to complete the work-up. Patient has a large right upper lobe bulla ([id number]) which can be a potential cause of the dysphagia but EGD or Esophagram did not show external compression. -Patient will keep the appointment with Thoracic Surgery on 03/14 to establish care for possible bullectomy in his disease trajectory of COPD and ILD, especially in the setting of the size of the bulla and recent ED visit. Would appreciate input. Noted plans for PFT, lung volume and DLCO in April by Pulm. #H.pylori infection -The 2-week course of Bismuth quadruple therapy was interrupted due to the ED visit on 02/24 (02/16-02/24, 03/07-present). Patient will finish the course by taking 4 more days of the regimen. -Check stool test 1 month after finishing the course to confirm eradication. This patient case was discussed with Dr. Villafuerte. Plan is to follow up in two months. Arjun Polanco MD March 07, 2023 9:30 PM I saw and evaluated the patient. Discussed with the fellow and agree with findings and plan as documented in the note. Less concern for dysphagia being related to large upper lobe bulla as there were no obstruction or external compression on esophagram and/or EGD. Noted improvement of dysphagia with H. Pylori eradication (self-rated 60%) may be related to PPI therapy and silent reflux. Will complete evaluation with esophageal manometry and confirm eradication of H. Pylori infection. Kev Villafuerte MD documented in this encounter [facility] 03-07-2023 Note HNO ID: [id number] Author: Sheng Betancourt RT(R) Service: ? Author Type: Technologist Type: Progress Notes Filed: 03/07/2023 9:51 AM Note Text: Radiology Service Progress Note PATIENT NAME: Jennie Mccarthy DATE OF SERVICE: March 07, 2023 TIME: 9:50 AM PATIENT IDENTITY VERIFICATION COMPLETED USING TWO (2) IDENTIFIERS: Name and Date of confirmed by patient verbally and Name and Date of confirmed by identification band. FALL SCREENING: Has the patient had 2 falls in the last year or 1 fall with injury or currently using an Ambulatory Assistive Device (Walker, Cane, Wheelchair, Crutches, etc.)? No PATIENT GENDER DATA: Male PATIENT RELEVANT IMPLANT DATA REVIEWED: Not Applicable RADIOLOGY DEPARTMENT: General X-ray: Exam(s) Completed: GI/ Procedure(s): Esophogram with barium contrast PERIPHERAL IV DATA: Not applicable SIGNED BY: RT Stone(R) March 07, 2023 9:50 AM [facility] 03-07-2023 History of Present illness Narrative Radiology Service Progress Note PATIENT NAME: Jennie Mccarthy DATE OF SERVICE: March 07, 2023 TIME: 9:50 AM PATIENT IDENTITY VERIFICATION COMPLETED USING TWO (2) IDENTIFIERS: Name and Date of confirmed by patient verbally and Name and Date of confirmed by identification band. FALL SCREENING: Has the patient had 2 falls in the last year or 1 fall with injury or currently using an Ambulatory Assistive Device (Walker, Cane, Wheelchair, Crutches, etc.)? No PATIENT GENDER DATA: Male PATIENT RELEVANT IMPLANT DATA REVIEWED: Not Applicable RADIOLOGY DEPARTMENT: General X-ray: Exam(s) Completed: GI/ Procedure(s): Esophogram with barium contrast PERIPHERAL IV DATA: Not applicable SIGNED BY: RT Stone(R) March 07, 2023 9:50 AM documented in this encounter [facility] 03-05-2023 Miscellaneous Notes I called Mr. Mccarthy to discuss dysphagia and H.pylori treatment. He missed an appointment with me last Saturday due to his visit to ED from dehydration, which he recovered from. We will try to make an appointment on 03/08 or 03/15. Arjun Polanco MD GI fellow documented in this encounter [facility] 02-15-2023 Miscellaneous Notes Pt was scheduled for the requested consult w/Dr King w/pfts per [facility] for the 1st available dates /of 03/01/23 for testing and coordinated w/pt's Gastro appt for the same date and scheduled for 03/14/23 for the consult w/Dr King. Confirmed appt dates/times/locations w/pt & pt's spouse - Mrs Mccarthy via phone. They are active on [employer] for appt details. An appt reminder was also sent out to pt via [employer]. Attempt #[address] Chest 02/07/23 Radiology Imaging [facility] Spoke to: Natalee Phone #: [phone] images are being sent via electronic transfer Laila Cerda February 15, 2023 8:30 AM Images from the original note were not included. Thoracic Surgery Consultation - review of records for appointment scheduling Dr Arjun Peguero - [facility] Patient is being referred to Unspecified/First Available by for Evaluation for Bullectomy Outside hospital records scanned Imaging ct chest 02/07/23 9 need imaging [address] [facility] CT (chest) 10/09/22 Findings are suggestive of interstitial lung disease. The pattern and distribution are compatible with UIP. Very large bulla in the right upper lobe. UGI: 02/08/2023 egd Impression: - Z-line regular, 40 cm from the incisors. Biopsied. - 2 cm hiatal hernia. - Normal stomach. Biopsied. - Normal examined duodenum. Biopsied. Cardiopulmonary Testing PFT's/Six: requested Cardiac: echo 10/30/21 - Exam indication: Abnormal ECG - The left ventricle is normal in size. There is mild concentric left ventricular hypertrophy. Left ventricular systolic function is normal. EF = 63 5% (2D biplane) Normal left ventricular diastolic function. - The right ventricle is normal in size. Right ventricular systolic function is normal. - There are no significant valvular abnormalities. - The visualized aorta is borderline dilated with a maximal dimension of 4.0 cm. . Office Notes/Consults 02/14 tele gi Arjun Polanco MD GI fellow I called Mr. Mccarthy to discuss recent EGD results with biopsy which showed positive H.pylori. He has a history of macrolide use due to respiratory tract infection and will receive Bismuth quadruple therapy. I explained that the eradication will be assessed using either breath test or stool test after finishing the treatment. In addition, he still c/o chronic dysphagia to solids, liquids and pills which is associated with choking. We discussed the previous recommendation to pursue thoracic surgery consult to discuss surgical intervention of the large RUL bulla (13 x 10 cm). Plan to order a referral today to facilitate the evaluation. Patient will return to clinic on 03/01 and I will discuss the case with his wood router hand as well following the visit. 11/01/[address] fontaine 10/12/[address] albrecht Assessment/Plan: 1. ILD -Most likely UIP but in light of abnormal autoantibodies, cannot exclude autoimmune related lung disease -No progression by chest CT -Needs updated pulmonary function testing -Hold on antifibrotic therapy -Repeat consult to rheumatology 2. Large bulla of lung -Mild COPD -Smoking cessation recommended -Continue albuterol as needed 3. Cigarette smoker -Current smoker with sequelae of COPD -Smoking cessation strongly encouraged History of: FAMILY HISTORY Problem Relation Age of Onset other (Pneumonia) Mother age 72 other (aneursm repair) Mother Prostate Cancer Father CArdiomegaly ( age 72) Aneurysm Brother Lung Cancer Brother Lung Cancer ( age 60's) Heart Brother HI x 2 other (aneurysm repair) Brother PAST MEDICAL HISTORY Diagnosis Date AAA (abdominal aortic aneurysm) (HCC) 03/02/2009 Atrial fibrillation (HCC) Atrial flutter (HCC) 08/20/2011 Chronic cholecystitis Coronary artery disease DDD (degenerative disc disease), lumbar 02/05/2014 Emphysematous bleb (HCC) 05/28/2007 Right upper lung. Erectile dysfunction 02/27/2011 Esophageal reflux Gastroesophageal reflux Fatty liver GYNECOMASTIA 11/08/2006 Hemorrhage of rectum and anus 12/25/2009 bleeding hemorrhoids Hiatal hernia Hypertension 06/12/2013 Obesity, unspecified 11/04/2008 Obstructive sleep apnea CPAP Other and unspecified hyperlipidemia 11/05/2006 Other emphysema (HCC) Emphysema Pulmonary embolism (HCC) 05/19/2011 Substance abuse (HCC) Tobacco use disorder 10/24/2006 ex-smoker Unspecified constipation Constipation Unspecified hypothyroidism 11/05/2006 PAST SURGICAL HISTORY Procedure Laterality Date COLONOSCOPY 2005 COLONOSCOPY FLX DX W/COLLJ SPEC WHEN PFRMD 12/26/09 DIR RPR ANEURYSM ABDOMINAL AORTA 06/12/2013 Abd Aortic Aneurysm Repair, Endovascular ENDOVAS REPAIR ILIAC ANEURYSM Right 01/15/2020 R hypogastric coiling, R common femoral access FOCAL LASER RETINAL TUMOR OS (LEFT EYE) Left 10/2019 Retinal Tear HEMORRHOIDECTOMY INTERNAL RUBBER BAND LIGATIONS 11/2004 LAPS SURG CHOLECYSTECTOMY W/CHOLANGIOGRAPHY 07/07/07 TONSILLECTOMY PRIMARY/SECONDARY <AGE 12 1972 Tonsillectomy Social History Tobacco Use Smoking status: Every Day Packs/day: 0.50 Years: 46.00 Total pack years: 23.00 Types: Cigarettes Start date: 07/08/1973 Smokeless tobacco: Never Tobacco comments: Currently 0.5ppd 10/12/22 Vaping Use Vaping Use: Never used Substance Use Topics Alcohol use: No Drug use: Yes Types: Marijuana Comment: Off and on. Request consult with dr king pft/dlco/kadeem Navarro RN documented in this encounter [facility] 02-14-2023 Miscellaneous Notes I called Mr. Mccarthy to discuss recent EGD results with biopsy which showed positive H.pylori. He has a history of macrolide use due to respiratory tract infection and will receive Bismuth quadruple therapy. I explained that the eradication will be assessed using either breath test or stool test after finishing the treatment. In addition, he still c/o chronic dysphagia to solids, liquids and pills which is associated with choking. We discussed the previous recommendation to pursue thoracic surgery consult to discuss surgical intervention of the large RUL bulla (13 x 10 cm). Plan to order a referral today to facilitate the evaluation. Patient will return to clinic on 03/01 and I will discuss the case with his wood router hand as well following the visit. Arjun Polanco MD GI fellow documented in this encounter [facility] 02-08-2023 History and physical note REASON FOR VISIT Jennie Mccarthy is a 62 year old male who is scheduled at the request of Dr. Carolina Tapia (ENT) for chronic dysphagia. My final recommendations will be communicated back to the requesting physician by the way of the shared medical record, fax, or via [employer] Mail HISTORY OF PRESENT ILLNESS Mr. Mccarthy is a 62-year-old male with PMHx of COPD (60 pyrs current smoker), ILD, VANIA , A-fib on Eliquis and HTN who was referred to GI clinic due to chronic dysphagia. He states he started having dysphagia without identifiable inciting factors about 3 years ago. He has dysphagia to solids, liquids and pills now which initially started with only solids. He reports odynophagia, chocking and belching. Denies significant acid reflux, halitosis or nasal regurgitation. He frequently needs to engulf air to get foods and pills down. Denies nausea, vomiting, weight loss, hematochezia, melena. Barium esophagram in 12/2021 showed small hiatal hernia but no other structural abnormalities. He was seen by IM on 11/26/2022, complaining of the above chronic symptoms and was referred to ENT who saw the patient on 01/10/2023. Flexible laryngoscopy showed normal nasopharynx, oropharynx, hypopharynx including the pyriform sinuses. ENT ordered MBS and esophagram and he was referred to GI. MBS is scheduled for today at [facility]. Of note, patient has had emphysematous changes in his right lung and CT chest done on 10/09/2022 showed a large RUL bulla [id number]. PAST MEDICAL HISTORY PAST MEDICAL HISTORY PAST MEDICAL HISTORY Diagnosis Date AAA (abdominal aortic aneurysm) (HCC) 03/02/2009 Atrial fibrillation (HCC) Atrial flutter (HCC) 08/20/2011 Chronic cholecystitis Coronary artery disease DDD (degenerative disc disease), lumbar 02/05/2014 Emphysematous bleb (HCC) 05/28/2007 Right upper lung. Erectile dysfunction 02/27/2011 Esophageal reflux Gastroesophageal reflux Fatty liver GYNECOMASTIA 11/08/2006 Hemorrhage of rectum and anus 12/25/2009 bleeding hemorrhoids Hiatal hernia Hypertension 06/12/2013 Obesity, unspecified 11/04/2008 Obstructive sleep apnea CPAP Other and unspecified hyperlipidemia 11/05/2006 Other emphysema (HCC) Emphysema Pulmonary embolism (HCC) 05/19/2011 Substance abuse (HCC) Tobacco use disorder 10/24/2006 ex-smoker Unspecified constipation Constipation Unspecified hypothyroidism 11/05/2006 PAST SURGICAL HISTORY PAST SURGICAL HISTORY PAST SURGICAL HISTORY Procedure Laterality Date COLONOSCOPY 2005 COLONOSCOPY FLX DX W/COLLJ SPEC WHEN PFRMD 12/26/09 DIR RPR ANEURYSM ABDOMINAL AORTA 06/12/2013 Abd Aortic Aneurysm Repair, Endovascular ENDOVAS REPAIR ILIAC ANEURYSM Right 01/15/2020 R hypogastric coiling, R common femoral access FOCAL LASER RETINAL TUMOR OS (LEFT EYE) Left 10/2019 Retinal Tear HEMORRHOIDECTOMY INTERNAL RUBBER BAND LIGATIONS 11/2004 LAPS SURG CHOLECYSTECTOMY W/CHOLANGIOGRAPHY 07/07/07 TONSILLECTOMY PRIMARY/SECONDARY <AGE 11 1972 Tonsillectomy SOCIAL HISTORY SOCIAL HISTORY Social History Tobacco Use Smoking status: Every Day Packs/day: 0.50 Years: 46.00 Total pack years: 23.00 Types: Cigarettes Start date: 07/08/1973 Smokeless tobacco: Never Tobacco comments: Currently 0.5ppd 10/12/22 Vaping Use Vaping Use: Never used Substance Use Topics Alcohol use: No Drug use: Yes Types: Marijuana Comment: Off and on. Smokes Marijuana everyday FAMILY HISTORY (grandparents, parents, brothers, sisters, aunts, or uncles) Liver Problems: No Ulcerative Colitis: No Crohn's Disease: No Colon Cancer: No Celiac disease: No CURRENT MEDICATIONS Current Outpatient Medications Medication Sig Dispense Refill ibuprofen (MOTRIN) 800 mg tablet Take 1 tablet by mouth once daily. 30 tablet 2 apixaban (ELIQUIS) 5 mg tab(s) Take 1 tablet by mouth twice daily. 180 tablet 3 lisinopril (ZESTRIL, PRINIVIL) 40 mg tablet Take 1 tablet by mouth once daily. 90 tablet 3 levothyroxine (SYNTHROID) 137 mcg tablet Take 1 tablet by mouth once daily. Take on empty stomach 90 tablet 3 atorvastatin (LIPITOR) 80 mg tablet Take 1 tablet by mouth daily at bedtime. For cholesterol. 90 tablet 3 albuterol HFA (VENTOLIN HFA) 90 mcg/actuation inhaler Inhale 2 Puffs as instructed every 4 hours as needed. 18 g 3 hydroCHLOROthiazide (HYDRODIURIL, ESIDRIX) 12.5 mg capsule Take 1 capsule by mouth once daily. 90 capsule 3 tiotropium bromide (SPIRIVA RESPIMAT) 2.5 mcg/actuation inhaler Inhale 2 Puffs as instructed once daily. 1 Inhaler 5 nitroglycerin sublingual (NITROQUICK) 0.4 mg SL tablet Dissolve 1 tablet under the tongue as needed. FOR CHEST PAIN. IF NO RELIEF CALL 911 25 tablet 1 hydrocortisone 2.5 % cream Apply to scaly patches on face two times daily as needed for flares. Use 2 weeks on 1 week off 30 g 2 albuterol (PROVENTIL) 2.5 mg /3 mL (0.083 %) nebulizer solution Use 3 mL via nebulizer every 4 hours as needed for wheezing/shortness of breath. Use over 5-15minutes. 3 mL 0 Nebulizer NEBULIZER FOR HOME USE. 1 Kit 0 gabapentin (NEURONTIN) 300 mg capsule Take 2 capsules by mouth twice daily for 180 days. 120 capsule 5 No current facility-administered medications for this visit. ALLERGIES ALLERGIES Allergen Reactions Prednisone Itching PHYSICAL EXAMINATION BP 132/81 Pulse 50 Temp (Src) 97.8 (Temporal) Ht 5' 9 (1.75m) Wt 217 lb 12.8 oz (98.8kg) SpO2 96% BMI 32.15 kg/(m^2). General Appearance: Elderly male sitting in chair, pleasant, alert Eyes: PERRLA, conjunctiva and sclera normal Oropharynx: upper denture, no thrush or oral ulcers. Lungs: clear to ausculation b/l, no wheezing or crackles Heart: RRR, systolic mm Abdomen: ventral hernia, which increase in size with straining, no tenderness or discoloration, soft, non-tender, non-distended Rectal exam: Deferred. Extremities: no cyanosis or edema Skin: no jaundice, no spider angiomas, no palmar erythema Neuro:alert, oriented x 3, pleasant and in no acute distress LABS Anti-Scl negative (11/06/2021) IMAGING STUDIES AND PROCEDURES Flexible laryngoscopy (01/10/2023, Dr. Tapia) Flexible laryngoscopy was performed because of the following indication: hyperactive gag and dysphagia and odynophagia: After spraying the nose with 4% xylocaine and 0.5% oxymetazoline, the flexible scope was placed in a transnasal fashion. The nasopharynx, oropharynx, hypopharynx including the pyriform sinuses were normal. The base of tongue showed no gross lesions. The larynx itself showed no lesions. The vocal cords moved well bilaterally. CT chest wo IV contrast (10/10/2022) RESULT: Limitations: None. Lines, tubes, and devices: None. Lung parenchyma and airways: The central airways are patent. There is a very large bulla in the right upper lung measuring 13 x 10 cm. There are reticular opacities in the bilateral lungs predominantly involving the peripheral areas with honeycombing. Traction bronchiectasis is identified. No significant architectural distortion. No solid mass or consolidative opacities. Pleural space: No pleural effusions or pneumothorax. Lower neck, lymph nodes, and mediastinum: The imaged thyroid gland is normal. No lymphadenopathy in the supraclavicular, axillary, mediastinal, or hilar regions. Heart, pericardium, and thoracic vessels: Stable cardiac chambers, thoracic aorta and central pulmonary arteries. There is mild focal bulging along the left aspect of the aortic arch, unchanged. No pericardial effusion/thickening. Bones and soft tissues: No destructive bone lesion. Extensive osteophyte formation seen in the spine. Chest wall soft tissue remains unremarkable. Upper abdomen: Limited study through the upper abdomen demonstrates no interval changes. D[employer] C[employer] Worker (topogram) images: No additional findings. IMPRESSION: Findings are suggestive of interstitial lung disease. The pattern and distribution are compatible with UIP. Very large bulla in the right upper lobe. Barium Esophagram (12/07/2021) Indication: Dysphagia A barium esophagram was performed. There is normal course and caliber of the esophagus. No mass or stricture is visualized. There are no esophageal diverticula. Small sliding hiatal hernia. The patient swallowed a barium tablet without difficulty. Impression: Small sliding hiatal hernia Colonoscopy (11/17/2014, under [facility]) Findings: The colon (entire examined portion) appeared normal. External and internal hemorrhoids were found. Impression: - The entire examined colon is normal. - External and internal hemorrhoids. - No specimens collected. ASSESSMENT Mr. Mccarthy is a 62-year-old male with a history of COPD, ILD and a large RUL bulla ([id number]), A-fib on Eliquis who was referred to GI clinic for an evaluation of chronic dysphagia for the past 3 years PLAN: #Dysphagia -Possible etiologies include external compression from the large right upper lobe bulla, EOE and esophageal motility disorders. -Repeat Barium Esophagram was ordered by ENT, along with MBS. -Order EGD with biopsies to rule out occult dysplasia/malignancy or EOE. -If EGD is non-revealing, please consider thoracic surgery consult for surgical intervention of the large RUL bulla. Plan is to follow up after test(s) Plan is not final until discussed with attending This patient case was discussed with Dr. Christo Polanco MD UPDATED HISTORY AND PHYSICAL EXAMINATION SERVICE DATE: 02/08/2023 SERVICE TIME: 12:24 PM PHYSICAL EXAM MUST BE COMPLETED ON ADMISSION The History and Physical (completed in the past 30 days) has been reviewed and the patient has been examined. The contents accurately reflect the patient's condition with the following additions or revisions since the H&P was completed. Examination indicates no changes. This H&P can be found in the attached. SIGNATURE: Juma Cabrera III, MD PATIENT NAME: Jennie Mccarthy DATE: February 08, 2023 TIME: 12:24 PM documented in this encounter [facility] 02-05-2023 Note HNO ID: [id number] Author: Corie Christensen RN Service: ? Author Type: Registered Nurse Type: Progress Notes Filed: 02/05/2023 1:56 PM Note Text: CDM Telephonic Outreach Provider Action/FYI 2nd attempt Last [facility] CDM contact 12/06/22 Theron Martinez RN Recent CHASITY and Speech Therapy for modified barium swallow evaluation 02/08/23 EGD scheduled Next CDM outreach after AUG procedures and appointment(s). Contacted for: Routine Telephonic Outreach Contact made with patient: No, left message. Corie Christensen RN February 05, 2023 1:54 PM [facility] 02-04-2023 Note HNO ID: [id number] Author: Corie Christensen RN Service: ? Author Type: Registered Nurse Type: Progress Notes Filed: 02/05/2023 1:56 PM Note Text: CDM Telephonic Outreach Provider Action/FYI Contacted for: Routine Telephonic Outreach Contact made with patient: No, left message. Corie Christensen RN February 04, 2023 2:46 PM [facility] 02-04-2023 Note Patient Outreach ([facility]) JENNIE MCCARTHY ([id number]) 1960 M Date Time Provider Department 02/04/23 CORIE CHRISTENSEN During your visit today, we recorded the following information about you: Corie Christensen RN 02/05/2023 1:56 PM Signed CDM Telephonic Outreach Provider Shaka/ESSIE Contacted for: Routine Telephonic Outreach Contact made with patient: No, left message. Corie Christensen RN February 04, 2023 2:46 PM Corie Christensen RN 02/05/2023 1:56 PM Signed CDM Telephonic Outreach Provider Shaka/ESSIE 2nd attempt Last [facility] CDM contact 12/06/22 Theron Martinez RN Recent CHASITY and Speech Therapy for modified barium swallow evaluation 02/08/23 EGD scheduled Next CDM outreach after FEB procedures and appointment(s). Contacted for: Routine Telephonic Outreach Contact made with patient: No, left message. Corie Christensen RN February 05, 2023 1:54 PM Allergies As of Date: 02/04/2023 Noted Allergy Reaction PREDNISONE 02/27/2011 9 - Itching Date Reviewed: 02/01/2023 Reviewed by: Brian Delgado MA - Fully Assessed Reason for Visit: CDM [Other] Cmt: Check in call Prescriptions as of 02/05/2023 - ibuprofen (MOTRIN) 800 mg tablet Take 1 tablet by mouth once daily. - gabapentin (NEURONTIN) 300 mg capsule Take 2 capsules by mouth twice daily for 180 days. - apixaban (ELIQUIS) 5 mg tab(s) Take 1 tablet by mouth twice daily. - lisinopril (ZESTRIL, PRINIVIL) 40 mg tablet Take 1 tablet by mouth once daily. - levothyroxine (SYNTHROID) 137 mcg tablet Take 1 tablet by mouth once daily. Take on empty stomach - atorvastatin (LIPITOR) 80 mg tablet Take 1 tablet by mouth daily at bedtime. For cholesterol. - albuterol HFA (VENTOLIN HFA) 90 mcg/actuation inhaler Inhale 2 Puffs as instructed every 4 hours as needed. - hydroCHLOROthiazide (HYDRODIURIL, ESIDRIX) 12.5 mg capsule Take 1 capsule by mouth once daily. - tiotropium bromide (SPIRIVA RESPIMAT) 2.5 mcg/actuation inhaler Inhale 2 Puffs as instructed once daily. - nitroglycerin sublingual (NITROQUICK) 0.4 mg SL tablet Dissolve 1 tablet under the tongue as needed. FOR CHEST PAIN. IF NO RELIEF CALL 911 - hydrocortisone 2.5 % cream Apply to scaly patches on face two times daily as needed for flares. Use 2 weeks on 1 week off - albuterol (PROVENTIL) 2.5 mg /3 mL (0.083 %) nebulizer solution Use 3 mL via nebulizer every 4 hours as needed for wheezing/shortness of breath. Use over 5-15minutes. - Nebulizer NEBULIZER FOR HOME USE. Problem List As Of Date 02/04/2023 Noted Resolved Esophageal reflux [K21.9] Internal hemorrhoids without mention of complic*10/24/2006 01/02/2017 Tobacco use disorder [F17.200] 10/24/2006 09/04/2011 COPD with exacerbation (HCC) [J44.1] 10/24/2006 Hypothyroidism [E03.9] 11/05/2006 GYNECOMASTIA [N62] 11/08/2006 11/04/2008 Unspecified sleep apnea [G47.30] 04/03/2007 06/09/2013 Lung bullae (HCC) [J43.9] 05/28/2007 SCREENING FOR CONDITION NOS [Z13.9] 11/21/2007 11/04/2008 Obesity, unspecified [E66.9] 11/04/2008 06/08/2013 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/12/2013 Lumbago [M54.50] 03/08/2009 Patient Noncompliance [Z91.199] 02/03/2010 Erectile dysfunction [N52.9] 02/27/2011 Pulmonary embolism [I26.99] 05/19/2011 01/06/2013 Paroxysmal atrial flutter (HCC) [I48.92] 08/20/2011 Atrial fibrillation (HCC) [I48.91] 06/03/2012 06/18/2019 Cervicalgia [M54.2] 01/15/2013 04/13/2013 Headache [R51] 01/15/2013 04/13/2013 SUMMARY [V999.95] 06/08/2013 02/03/2014 History of pulmonary embolism [Z86.711] 06/08/2013 01/02/2017 History of smoking [Z87.891] 06/08/2013 06/09/2013 Hyperlipidemia [E78.5] 06/08/2013 Atelectasis [J98.11] 06/12/2013 02/03/2014 Hypertension [I10] 06/12/2013 Hypovolemia [E86.1] 06/12/2013 06/15/2013 VANIA (obstructive sleep apnea) AHI 71 [G47.33] 12/30/2013 Obesity [E66.9] 12/30/2013 05/11/2019 Nasal congestion [R09.81] 12/30/2013 08/27/2016 Visual impairment in both eyes [H54.3] 12/30/2013 08/27/2016 Physical deconditioning, multifactorial dyspnea*02/03/2014 08/27/2016 Lumbar spondylosis [M47.816] 02/05/2014 12/31/2017 DDD (degenerative disc disease), lumbar [M51.36]02/05/2014 12/31/2017 Sciatica [M54.30] 02/24/2014 Sebaceous cyst [L72.3] 09/03/2016 01/02/2017 Bronchitis [J40] 04/04/2017 Rosacea [L71.9] 04/04/2017 Obesity, Class II, BMI 35-39.9 [E66.9] 04/02/2018 04/05/2021 Iliac artery aneurysm, 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] 01/13/2020 Nicotine use disorder, F17.2 [F17.200] 01/14/2020 Tinea cruris [B35.6] 12/19/2020 Impaired fasting glucose [R73.01] 12/26/2020 Obesity, Class I, BMI 30-34.9 [E66.9] 03/23/2021 Vitamin D deficiency [E55.9] 04/05/2021 Chronic otitis externa of both ears [H60.63] 09/21/2021 Interstitial pulmonary disease (HCC) [J84.9] 11/07/2021 Encounter Status:Closed by CORIE CHRISTENSEN on 02/05/23 [facility] 02-01-2023 History of Present illness Narrative Episode Visit Count: Visit count could not be calculated. Make sure you are using a visit which is associated with an episode. Start of Care Date: 02/01/23 Onset Date: 02/01/23 Patient Identified by Name and Date of : Yes [facility] MODIFIED BARIUM SWALLOW PLAN OF CARE: Impression: Evidence of: Oropharyngeal dysphagia-minimal deficits, Concern for possible esophageal impairment An elevated risk for aspiration: No Swallow Efficiency: Preserved Patient presents with minimal oropharyngeal dysphagia, yet he is able to tolerate a regular diet and thin liquids with use of swallow precautions with no increased risk for aspiration at this time. 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 The patient will be able to demonstrate adequate return of knowledge of today's fluoroscopic assessment and recommendations to maximize overall safety with oral intake. (baseline = no knowledge). N/A Planned Interventions, Frequency, and Duration: N/A SUGGESTED TREATMENT OBJECTIVES: N/A SUBJECTIVE: Jennie Mccarthy is a 62 year old male seen today for a Modified Barium Swallow (MBS) Study. Patient was referred to for a MBSS exam by the ENT 2* patient's reports of pain with swallowing, hyperactive gag and a globus sensation. Patient presents with a history of GERD, yet reports he is not taking any medication for reflux. Patient Goals: To eat and drink safely. Prior Functional Level: Within Functional Limits (Independent) Assistance Available: Unable to determine at this time OBJECTIVE: MEASURES WITH LEVEL OF FUNCTION: Swallow Position Of Patient During Assessment: Upright In Chair, Standing Compensatory Strategies Utilized During Assessment: Controlled pharyngeal clearings with swallow, Sit upright 90 degrees for all PO, Small Bite/Sip Previous Swallow Study: (none) Instrumental Swallow Assessment Type: Modified Barium Swallow Study Modified Barium Swallow Views: Anterior-posterior position, Lateral position MBS Consistencies Tested: Thin Barium Liquids, Mildly Thick Barium Liquids ([place] Thick), Pureed with Barium Paste, Soft and Bite-Sized with Barium Paste, Solid with Barium Paste, 13 mm Barium Tablet Oral Phase: As Follows Lip Closure: No labial escape/anterior loss of bolus Tongue Control During Bolus Hold: Cohesive bolus between tongue to palatal seal Bolus Preparation/Mastication: Slow prolonged mastication with complete re-collection necessary (2* lack of dentition) Bolus Transport/Lingual Motion: Brisk tongue motion for A-P movement of the bolus Oral Residue: Complete oral clearance Initiation Of Pharyngeal Swallow: Bolus head at vallecular pit, Bolus head at pit of pyriforms Pharyngeal Phase: As Follows Soft Palate Elevation: No bolus between soft palate/pharyngeal wall Laryngeal Elevation: Complete superior movement of thyroid cartilage with contact of arytenoids to epiglottic petiole Anterior Hyoid Excursion: Complete anterior movement Epiglottic Movement: Complete inversion Laryngeal Vestibular Closure/Height of the Swallow: Complete - no air/contrast in laryngeal vestibule Pharyngeal Stripping Wave: Complete Pharyngeal Contraction (A/P View Only): Not tested Pharyngoesophageal Segment Opening: Complete distension and complete duration/no obstruction of flow of bolus Tongue Base Retraction: No bolus between tongue base and posterior pharyngeal wall Pharyngeal Residue: Trace residue within or on the pharyngeal structures, Complete pharyngeal clearance Esophageal Clearance In An Upright Position: Esophageal retention (observed retention in the mid-lower esophagus) Penetration: During the swallow Penetration With: Thin Liquids IDDSI Level 0 (trace, transient penetration) Penetration-Aspiration Scale for MBSS: Completed Level 1-Material does not enter airway : Regular Consistency, Soft and Bite-Sized IDDSI Level 6, Pureed IDDSI Level 4, Mildly Thick Liquids IDDSI Level 2 ([place] Thick) Level 2-Material enters the airway, remains above the vocal folds,and is ejected from the airway : Thin Liquids IDDSI Level 0 (observed during consecutive cup sips of thin liquids only) Education: Education Learning Preferences: Demonstration, Explanation, Performance, Printed Materials Barriers: None Learning/Educational Needs: Swallowing Skills, MBSs results, Discharge Plan, Precautions Education Provided: Yes, see treatment interventions for education provided Education Provided To: Patient Education Mode/Type: Demonstration, Explanation/Discussion, Teach Back, Video Response to Education/Teach Back: States/Identifies, Return Demonstration TREATMENT: Performed Modified Barium Swallowing Study (95181). Evaluation: Modified Barium Swallow Evaluation (58621) Education regarding findings from today's Modified Barium Swallowing study (fluoroscopic study) and suggested plans for treatment were provided to the patient through verbal / written instruction, images and/or demonstration. The patient was able to demonstrate understanding of education provided this date. Billing: Modified Barium Swallow (95109) Total time: 22 minutes Session Start Time : 1123 Session Stop Time : 1145 JUSTINE Shields documented in this encounter [facility] 02-01-2023 Note HNO ID: [id number] Author: Kev Villafuerte MD Service: ? Author Type: Physician Type: Progress Notes Filed: 02/01/2023 10:45 AM Note Text: DEPARTMENT OF GASTROENTEROLOGY - NEW PATIENT/CONSULT REASON FOR VISIT Jennie Mccarthy is a 62 year old male who is scheduled at the request of Dr. Carolina Tapia (ENT) for chronic dysphagia. My final recommendations will be communicated back to the requesting physician by the way of the shared medical record, fax, or via US Mail HISTORY OF PRESENT ILLNESS Mr. Mccarthy is a 62-year-old male with PMHx of COPD (60 pyrs current smoker), ILD, VANIA , A-fib on Eliquis and HTN who was referred to GI clinic due to chronic dysphagia. He states he started having dysphagia without identifiable inciting factors about 3 years ago. He has dysphagia to solids, liquids and pills now which initially started with only solids. He reports odynophagia, chocking and belching. Denies significant acid reflux, halitosis or nasal regurgitation. He frequently needs to engulf air to get foods and pills down. Denies nausea, vomiting, weight loss, hematochezia, melena. Barium esophagram in 12/2021 showed small hiatal hernia but no other structural abnormalities. He was seen by IM on 11/26/2022, complaining of the above chronic symptoms and was referred to ENT who saw the patient on 01/10/2023. Flexible laryngoscopy showed normal nasopharynx, oropharynx, hypopharynx including the pyriform sinuses. ENT ordered MBS and esophagram and he was referred to GI. MBS is scheduled for today at [facility]. Of note, patient has had emphysematous changes in his right lung and CT chest done on 10/09/2022 showed a large RUL bulla [id number]. 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 Erectile dysfunction 02/27/2011 Esophageal reflux Gastroesophageal reflux Fatty liver GYNECOMASTIA 11/08/2006 Hemorrhage of rectum and anus 12/25/2009 bleeding hemorrhoids Hiatal hernia Hypertension 06/12/2013 Obesity, unspecified 11/04/2008 Obstructive sleep apnea CPAP Other and unspecified hyperlipidemia 11/05/2006 Other emphysema (HCC) Emphysema Pulmonary embolism (HCC) 05/19/2011 Substance abuse (HCC) Tobacco use disorder 10/24/2006 ex-smoker Unspecified constipation Constipation Unspecified hypothyroidism 11/05/2006 PAST SURGICAL HISTORY PAST SURGICAL HISTORY Procedure Laterality Date COLONOSCOPY 2006 COLONOSCOPY FLX DX W/COLLJ SPEC WHEN PFRMD 12/26/09 DIR RPR ANEURYSM ABDOMINAL AORTA 06/12/2013 Abd Aortic Aneurysm Repair, Endovascular ENDOVAS REPAIR ILIAC ANEURYSM Right 01/15/2020 R hypogastric coiling, R common femoral access FOCAL LASER RETINAL TUMOR OS (LEFT EYE) Left 10/2019 Retinal Tear HEMORRHOIDECTOMY INTERNAL RUBBER BAND LIGATIONS 11/2004 LAPS SURG CHOLECYSTECTOMY W/CHOLANGIOGRAPHY 07/07/07 TONSILLECTOMY PRIMARY/SECONDARY Tonsillectomy SOCIAL HISTORY Social History Tobacco Use Smoking status: Every Day Packs/day: 0.50 Years: 46.00 Total pack years: 23.00 Types: Cigarettes Start date: 07/08/1973 Smokeless tobacco: Never Tobacco comments: Currently 0.5ppd 10/12/22 Vaping Use Vaping Use: Never used Substance Use Topics Alcohol use: No Drug use: Yes Types: Marijuana Comment: Off and on. Smokes Marijuana everyday FAMILY HISTORY (grandparents, parents, brothers, sisters, aunts, or uncles) Liver Problems: No Ulcerative Colitis: No Crohn's Disease: No Colon Cancer: No Celiac disease: No Current Outpatient Medications Medication Sig Dispense Refill ibuprofen (MOTRIN) 800 mg tablet Take 1 tablet by mouth once daily. 30 tablet 2 apixaban (ELIQUIS) 5 mg tab(s) Take 1 tablet by mouth twice daily. 180 tablet 3 lisinopril (ZESTRIL, PRINIVIL) 40 mg tablet Take 1 tablet by mouth once daily. 90 tablet 3 levothyroxine (SYNTHROID) 137 mcg tablet Take 1 tablet by mouth once daily. Take on empty stomach 90 tablet 3 atorvastatin (LIPITOR) 80 mg tablet Take 1 tablet by mouth daily at bedtime. For cholesterol. 90 tablet 3 albuterol HFA (VENTOLIN HFA) 90 mcg/actuation inhaler Inhale 2 Puffs as instructed every 4 hours as needed. 18 g 3 hydroCHLOROthiazide (HYDRODIURIL, ESIDRIX) 12.5 mg capsule Take 1 capsule by mouth once daily. 90 capsule 3 tiotropium bromide (SPIRIVA RESPIMAT) 2.5 mcg/actuation inhaler Inhale 2 Puffs as instructed once daily. 1 Inhaler 5 nitroglycerin sublingual (NITROQUICK) 0.4 mg SL tablet Dissolve 1 tablet under the tongue as needed. FOR CHEST PAIN. IF NO RELIEF CALL 911 25 tablet 1 hydrocortisone 2.5 % cream Apply to scaly patches on face two times daily as needed for flares. Use 2 weeks on 1 week off 30 g 2 albuterol (PROV (more content not included)... [facility] 02-01-2023 Instructions Arjun Polanco MD - 02/01/2023 8:53 AM EDT [facility] address: [address] [place] [address] Please hold Eliquis for 2 days before EGD for possible dilation. documented in this encounter [facility] 02-01-2023 History of Present illness Narrative DEPARTMENT OF GASTROENTEROLOGY - NEW PATIENT/CONSULT REASON FOR VISIT Jennie Mccarthy is a 62 year old male who is scheduled at the request of Dr. Carolina Tapia (ENT) for chronic dysphagia. My final recommendations will be communicated back to the requesting physician by the way of the shared medical record, fax, or via US Mail HISTORY OF PRESENT ILLNESS Mr. Mccarthy is a 62-year-old male with PMHx of COPD (60 pyrs current smoker), ILD, VANIA , A-fib on Eliquis and HTN who was referred to GI clinic due to chronic dysphagia. He states he started having dysphagia without identifiable inciting factors about 3 years ago. He has dysphagia to solids, liquids and pills now which initially started with only solids. He reports odynophagia, chocking and belching. Denies significant acid reflux, halitosis or nasal regurgitation. He frequently needs to engulf air to get foods and pills down. Denies nausea, vomiting, weight loss, hematochezia, melena. Barium esophagram in 12/2021 showed small hiatal hernia but no other structural abnormalities. He was seen by IM on 11/26/2022, complaining of the above chronic symptoms and was referred to ENT who saw the patient on 01/10/2023. Flexible laryngoscopy showed normal nasopharynx, oropharynx, hypopharynx including the pyriform sinuses. ENT ordered MBS and esophagram and he was referred to GI. MBS is scheduled for today at [facility]. Of note, patient has had emphysematous changes in his right lung and CT chest done on 10/09/2022 showed a large RUL bulla [id number]. 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 Erectile dysfunction 02/27/2011 Esophageal reflux Gastroesophageal reflux Fatty liver GYNECOMASTIA 11/08/2006 Hemorrhage of rectum and anus 12/25/2009 bleeding hemorrhoids Hiatal hernia Hypertension 06/12/2013 Obesity, unspecified 11/04/2008 Obstructive sleep apnea CPAP Other and unspecified hyperlipidemia 11/05/2006 Other emphysema (HCC) Emphysema Pulmonary embolism (HCC) 05/19/2011 Substance abuse (HCC) Tobacco use disorder 10/24/2006 ex-smoker Unspecified constipation Constipation Unspecified hypothyroidism 11/05/2006 PAST SURGICAL HISTORY PAST SURGICAL HISTORY Procedure Laterality Date COLONOSCOPY 2005 COLONOSCOPY FLX DX W/COLLJ SPEC WHEN PFRMD 12/26/09 DIR RPR ANEURYSM ABDOMINAL AORTA 06/12/2013 Abd Aortic Aneurysm Repair, Endovascular ENDOVAS REPAIR ILIAC ANEURYSM Right 01/15/2020 R hypogastric coiling, R common femoral access FOCAL LASER RETINAL TUMOR OS (LEFT EYE) Left 10/2019 Retinal Tear HEMORRHOIDECTOMY INTERNAL RUBBER BAND LIGATIONS 11/2004 LAPS SURG CHOLECYSTECTOMY W/CHOLANGIOGRAPHY 07/07/07 TONSILLECTOMY PRIMARY/SECONDARY <AGE 11 1971 Tonsillectomy SOCIAL HISTORY Social History Tobacco Use Smoking status: Every Day Packs/day: 0.50 Years: 46.00 Total pack years: 23.00 Types: Cigarettes Start date: 07/08/1973 Smokeless tobacco: Never Tobacco comments: Currently 0.5ppd 10/12/22 Vaping Use Vaping Use: Never used Substance Use Topics Alcohol use: No Drug use: Yes Types: Marijuana Comment: Off and on. Smokes Marijuana everyday FAMILY HISTORY (grandparents, parents, brothers, sisters, aunts, or uncles) Liver Problems: No Ulcerative Colitis: No Crohn's Disease: No Colon Cancer: No Celiac disease: No Current Outpatient Medications Medication Sig Dispense Refill ibuprofen (MOTRIN) 800 mg tablet Take 1 tablet by mouth once daily. 30 tablet 2 apixaban (ELIQUIS) 5 mg tab(s) Take 1 tablet by mouth twice daily. 180 tablet 3 lisinopril (ZESTRIL, PRINIVIL) 40 mg tablet Take 1 tablet by mouth once daily. 90 tablet 3 levothyroxine (SYNTHROID) 137 mcg tablet Take 1 tablet by mouth once daily. Take on empty stomach 90 tablet 3 atorvastatin (LIPITOR) 80 mg tablet Take 1 tablet by mouth daily at bedtime. For cholesterol. 90 tablet 3 albuterol HFA (VENTOLIN HFA) 90 mcg/actuation inhaler Inhale 2 Puffs as instructed every 4 hours as needed. 18 g 3 hydroCHLOROthiazide (HYDRODIURIL, ESIDRIX) 12.5 mg capsule Take 1 capsule by mouth once daily. 90 capsule 3 tiotropium bromide (SPIRIVA RESPIMAT) 2.5 mcg/actuation inhaler Inhale 2 Puffs as instructed once daily. 1 Inhaler 5 nitroglycerin sublingual (NITROQUICK) 0.4 mg SL tablet Dissolve 1 tablet under the tongue as needed. FOR CHEST PAIN. IF NO RELIEF CALL 911 25 tablet 1 hydrocortisone 2.5 % cream Apply to scaly patches on face two times daily as needed for flares. Use 2 weeks on 1 week off 30 g 2 albuterol (PROVENTIL) 2.5 mg /3 mL (0.083 %) nebulizer solution Use 3 mL via nebulizer every 4 hours as needed for wheezing/shortness of breath. Use over 5-15minutes. 3 mL 0 Nebulizer NEBULIZER FOR HOME USE. 1 Kit 0 gabapentin (NEURONTIN) 300 mg capsule Take 2 capsules by mouth twice daily for 180 days. 120 capsule 5 No current facility-administered medications for this visit. ALLERGIES Allergen Reactions Prednisone Itching PHYSICAL EXAMINATION BP 132/81 Pulse 50 Temp (Src) 97.8 (Temporal) Ht 5' 9 (1.75m) Wt 217 lb 12.8 oz (98.8kg) SpO2 96% BMI 32.15 kg/(m^2). General Appearance: Elderly male sitting in chair, pleasant, alert Eyes: PERRLA, conjunctiva and sclera normal Oropharynx: upper denture, no thrush or oral ulcers. Lungs: clear to ausculation b/l, no wheezing or crackles Heart: RRR, systolic mm Abdomen: ventral hernia, which increase in size with straining, no tenderness or discoloration, soft, non-tender, non-distended Rectal exam: Deferred. Extremities: no cyanosis or edema Skin: no jaundice, no spider angiomas, no palmar erythema Neuro:alert, oriented x 3, pleasant and in no acute distress LABS Anti-Scl negative (11/06/2021) IMAGING STUDIES AND PROCEDURES Flexible laryngoscopy (01/10/2023, Dr. Tapia) Flexible laryngoscopy was performed because of the following indication: hyperactive gag and dysphagia and odynophagia: After spraying the nose with 4% xylocaine and 0.5% oxymetazoline, the flexible scope was placed in a transnasal fashion. The nasopharynx, oropharynx, hypopharynx including the pyriform sinuses were normal. The base of tongue showed no gross lesions. The larynx itself showed no lesions. The vocal cords moved well bilaterally. CT chest wo IV contrast (10/10/2022) RESULT: Limitations: None. Lines, tubes, and devices: None. Lung parenchyma and airways: The central airways are patent. There is a very large bulla in the right upper lung measuring 13 x 10 cm. There are reticular opacities in the bilateral lungs predominantly involving the peripheral areas with honeycombing. Traction bronchiectasis is identified. No significant architectural distortion. No solid mass or consolidative opacities. Pleural space: No pleural effusions or pneumothorax. Lower neck, lymph nodes, and mediastinum: The imaged thyroid gland is normal. No lymphadenopathy in the supraclavicular, axillary, mediastinal, or hilar regions. Heart, pericardium, and thoracic vessels: Stable cardiac chambers, thoracic aorta and central pulmonary arteries. There is mild focal bulging along the left aspect of the aortic arch, unchanged. No pericardial effusion/thickening. Bones and soft tissues: No destructive bone lesion. Extensive osteophyte formation seen in the spine. Chest wall soft tissue remains unremarkable. Upper abdomen: Limited study through the upper abdomen demonstrates no interval changes. D[employer] Worker (topogram) images: No additional findings. IMPRESSION: Findings are suggestive of interstitial lung disease. The pattern and distribution are compatible with UIP. Very large bulla in the right upper lobe. Barium Esophagram (12/07/2021) Indication: Dysphagia A barium esophagram was performed. There is normal course and caliber of the esophagus. No mass or stricture is visualized. There are no esophageal diverticula. Small sliding hiatal hernia. The patient swallowed a barium tablet without difficulty. Impression: Small sliding hiatal hernia Colonoscopy (11/17/2014, under [facility]) Findings: The colon (entire examined portion) appeared normal. External and internal hemorrhoids were found. Impression: - The entire examined colon is normal. - External and internal hemorrhoids. - No specimens collected. ASSESSMENT Mr. Mccarthy is a 62-year-old male with a history of COPD, ILD and a large RUL bulla ([id number]), A-fib on Eliquis who was referred to GI clinic for an evaluation of chronic dysphagia for the past 3 years PLAN: #Dysphagia -Possible etiologies include external compression from the large right upper lobe bulla, EOE and esophageal motility disorders. -Repeat Barium Esophagram was ordered by ENT, along with MBS. -Order EGD with biopsies to rule out occult dysplasia/malignancy or EOE. -If EGD is non-revealing, please consider thoracic surgery consult for surgical intervention of the large RUL bulla. Plan is to follow up after test(s) Plan is not final until discussed with attending This patient case was discussed with Dr. Christo Polanco MD January 31, 2023 8:41 AM I saw and evaluated the patient. Discussed with the fellow and agree with findings and plan as documented in the note. Kev Villafuerte MD documented in this encounter [facility] 01-14-2023 Note Patient Outreach (NE TNAV) JENNIE MCCARTHY ([id number]) 1960 M Date Time Provider Department 01/14/23 PATRICIA SANDOVAL During your visit today, we recorded the following information about you: Patricia Sandoval Population Health Navigator 01/14/2023 10:00 AM Signed POPULATION HEALTH NAVIGATION OUTREACH Action/FYI VM left for a return call [employer] message sent Due for wellness HCC: I72.3 - Iliac artery aneurysm, right (HCC) - [id number] Last Billed 09/21/2021 Patient Identified by Name and : NO Outreach Outcome/Action Unable to reach patient: Left message [employer] message sent Advance Directives sent Did you use a PCP flex slot to schedule this appointment? N/A Reason for Outreach Care Gap or Scheduling/Wellness visits Payer: Payor: [employer] [facility] / Plan: AN[employer] MEDIBLUE HMO / Product Type: HMO / Care Gap Reviewed:: Annual Wellness visit Reminder: Reminder note to check Health Maintenance for items below Health Maintenance items due: There are no preventive care reminders to display for this patient. Navigation Signature: Patricia Sandoval Population Health Navigator January 14, 2023 9:56 AM Allergies As of Date: 01/14/2023 Noted Allergy Reaction PREDNISONE 02/27/2011 9 - Itching Date Reviewed: 01/10/2023 Reviewed by: Mounika Woo - Fully Assessed Reason for Visit: Population Health Navigation Outreach [3910] Cmt: [place] Care Gap Prescriptions as of 01/14/2023 - ibuprofen (MOTRIN) 800 mg tablet Take 1 tablet by mouth once daily. - gabapentin (NEURONTIN) 300 mg capsule Take 2 capsules by mouth twice daily for 180 days. - apixaban (ELIQUIS) 5 mg tab(s) Take 1 tablet by mouth twice daily. - lisinopril (ZESTRIL, PRINIVIL) 40 mg tablet Take 1 tablet by mouth once daily. - levothyroxine (SYNTHROID) 137 mcg tablet Take 1 tablet by mouth once daily. Take on empty stomach - atorvastatin (LIPITOR) 80 mg tablet Take 1 tablet by mouth daily at bedtime. For cholesterol. - albuterol HFA (VENTOLIN HFA) 90 mcg/actuation inhaler Inhale 2 Puffs as instructed every 4 hours as needed. - hydroCHLOROthiazide (HYDRODIURIL, ESIDRIX) 12.5 mg capsule Take 1 capsule by mouth once daily. - tiotropium bromide (SPIRIVA RESPIMAT) 2.5 mcg/actuation inhaler Inhale 2 Puffs as instructed once daily. - nitroglycerin sublingual (NITROQUICK) 0.4 mg SL tablet Dissolve 1 tablet under the tongue as needed. FOR CHEST PAIN. IF NO RELIEF CALL 911 - hydrocortisone 2.5 % cream Apply to scaly patches on face two times daily as needed for flares. Use 2 weeks on 1 week off - albuterol (PROVENTIL) 2.5 mg /3 mL (0.083 %) nebulizer solution Use 3 mL via nebulizer every 4 hours as needed for wheezing/shortness of breath. Use over 5-15minutes. - Nebulizer NEBULIZER FOR HOME USE. Facility-Administered Medications as of 01/14/2023 - perflutren lipid microspheres 1.3 mL in NaCl (PF) 0.9% 10 mL injection (DEFINITY) - sodium chloride 0.9 % (flush) 10 mL (BD POSIFLUSH) Problem List As Of Date 01/14/2023 Noted Resolved Esophageal reflux [K21.9] Internal hemorrhoids without mention of complic*10/24/2006 01/02/2017 Tobacco use disorder [F17.200] 10/24/2006 09/04/2011 COPD with exacerbation (HCC) [J44.1] 10/24/2006 Hypothyroidism [E03.9] 11/05/2006 GYNECOMASTIA [N62] 11/08/2006 11/04/2008 Unspecified sleep apnea [G47.30] 04/03/2007 06/09/2013 Lung bullae (HCC) [J43.9] 05/28/2007 SCREENING FOR CONDITION NOS [Z13.9] 11/21/2007 11/04/2008 Obesity, unspecified [E66.9] 11/04/2008 06/08/2013 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/12/2013 Lumbago [M54.50] 03/08/2009 Patient Noncompliance [Z91.199] 02/03/2010 Erectile dysfunction [N52.9] 02/27/2011 Pulmonary embolism [I26.99] 05/19/2011 01/06/2013 Paroxysmal atrial flutter (HCC) [I48.92] 08/20/2011 Atrial fibrillation (HCC) [I48.91] 06/03/2012 06/18/2019 Cervicalgia [M54.2] 01/15/2013 04/13/2013 Headache [R51] 01/15/2013 04/13/2013 SUMMARY [V999.95] 06/08/2013 02/03/2014 History of pulmonary embolism [Z86.711] 06/08/2013 01/02/2017 History of smoking [Z87.891] 06/08/2013 06/09/2013 Hyperlipidemia [E78.5] 06/08/2013 Atelectasis [J98.11] 06/12/2013 02/03/2014 Hypertension [I10] 06/12/2013 Hypovolemia [E86.1] 06/12/2013 06/15/2013 VANIA (obstructive sleep apnea) AHI 71 [G47.33] 12/30/2013 Obesity [E66.9] 12/30/2013 05/11/2019 Nasal congestion [R09.81] 12/30/2013 08/27/2016 Visual impairment in both eyes [H54.3] 12/30/2013 08/27/2016 Physical deconditioning, multifactorial dyspnea*02/03/2014 08/27/2016 Lumbar spondylosis [M47.816] 02/05/2014 12/31/2017 DDD (degenerative disc disease), lumbar [M51.36]02/05/2014 12/31/2017 Sciatica [M54.30] 02/24/2014 Sebaceous cyst [L72.3] 09/03/2016 01/02/2017 Bronchitis [J40] 04/04/2017 Rosacea [L71.9] 04/04/2017 Obesity, Class II, BMI 35-39.9 [E66.9] 04/02/2018 04/05/2021 Iliac lashonda (more content not included)... [facility] 01-14-2023 Note HNO ID: [id number] Author: Patricia Sandoval Population Health Navigator Service: ? Author Type: ? Type: Progress Notes Filed: 01/14/2023 10:00 AM Note Text: POPULATION HEALTH NAVIGATION OUTREACH Action/FYI VM left for a return call Mychart message sent Due for wellness HCC: I72.3 - Iliac artery aneurysm, right (HCC) - [id number] Last Billed 09/21/2021 Patient Identified by Name and : NO Outreach Outcome/Action Unable to reach patient: Left message MyChart message sent Advance Directives sent Did you use a PCP flex slot to schedule this appointment? N/A Reason for Outreach Care Gap or Scheduling/Wellness visits Payer: Payor: [employer] / Plan: [employer] / Product Type: HMO / Care Gap Reviewed:: Annual Wellness visit Reminder: Reminder note to check Health Maintenance for items below Health Maintenance items due: There are no preventive care reminders to display for this patient. Navigation Signature: Patricia Sandoval Population Health Navigator January 14, 2023 9:56 AM [facility] 01-14-2023 History of Present illness Narrative POPULATION HEALTH NAVIGATION OUTREACH Action/FYI VM left for a return call Mychart message sent Due for wellness HCC: I72.3 - Iliac artery aneurysm, right (HCC) - [id number] Last Billed 09/21/2021
Patient Identified by Name and : NO Outreach Outcome/Action Unable to reach patient: Left message MyChart message sent Advance Directives sent Did you use a PCP flex slot to schedule this appointment? N/A Reason for Outreach Care Gap or Scheduling/Wellness visits Payer: Payor: [employer] / Plan: ANTHEM MEDIBLUE HMO / Product Type: HMO / Care Gap Reviewed:: Annual Wellness visit Reminder: Reminder note to check Health Maintenance for items below Health Maintenance items due: There are no preventive care reminders to display for this patient. Navigation Signature: Patricia Sandoval Population Health Navigator January 14, 2023 9:56 AM documented in this encounter [facility] 01-10-2023 Note HNO ID: [id number] Author: Carolina Tapia MD Service: ? Author Type: Physician Type: Progress Notes Filed: 01/10/2023 3:05 PM Note Text: This consult is seen at the kind request of practitioner Kamini Ivy of internal medicine, and my final recommendations will be communicated to the requesting health care provider by way of shared electronic medical record. This note is formatted with the impression and plan first and the history and physical to follow. IMPRESSION 62-year-old male with dysphagia and odynophagia. RECOMMENDATION/PLAN To further assess his swallowing symptoms, I recommend obtaining a modified barium swallow study and an esophagram. With his flexible laryngoscopy being normal, I recommend referring him to GI for possible EGD. Chief Complaint Painful swallowing, trouble swallowing. History of Present Illness Jennie Mccarthy is a 62 year old male present for evaluation of odynophagia and dysphagia. Patient stated that his symptom has been present for the last several years. He frequently feels like solid food getting stuck in his throat in the suprasternal region. When he swallows, he also have pain there as well. His dysphagia is mostly with solids and occasionally with liquids as well. He reports history of reflux but denies using any reflux medication at this time. He is a smoker with over [id number] smoking history. Denies any shortness of breath, coughing up blood, or voice changes. PAST MEDICAL HISTORY Diagnosis Date AAA (abdominal aortic aneurysm) (HCC) 03/02/2009 Atrial fibrillation (HCC) Atrial flutter (HCC) 08/20/2011 Chronic cholecystitis Coronary artery disease DDD (degenerative disc disease), lumbar 02/05/2014 Emphysematous bleb (HCC) 05/28/2007 Right upper lung. Erectile dysfunction 02/27/2011 Esophageal reflux Gastroesophageal reflux Fatty liver GYNECOMASTIA 11/08/2006 Hemorrhage of rectum and anus 12/25/2009 bleeding hemorrhoids Hiatal hernia Hypertension 06/12/2013 Obesity, unspecified 11/04/2008 Obstructive sleep apnea CPAP Other and unspecified hyperlipidemia 11/05/2006 Other emphysema (HCC) Emphysema Pulmonary embolism (HCC) 05/19/2011 Substance abuse (HCC) Tobacco use disorder 10/24/2006 ex-smoker Unspecified constipation Constipation Unspecified hypothyroidism 11/05/2006 PAST SURGICAL HISTORY Procedure Laterality Date COLONOSCOPY 2005 COLONOSCOPY FLX DX W/COLLJ SPEC WHEN PFRMD 12/26/09 DIR RPR ANEURYSM ABDOMINAL AORTA 06/12/2013 Abd Aortic Aneurysm Repair, Endovascular ENDOVAS REPAIR ILIAC ANEURYSM Right 01/15/2020 R hypogastric coiling, R common femoral access FOCAL LASER RETINAL TUMOR OS (LEFT EYE) Left 10/2019 Retinal Tear HEMORRHOIDECTOMY INTERNAL RUBBER BAND LIGATIONS 11/2004 LAPS SURG CHOLECYSTECTOMY W/CHOLANGIOGRAPHY 07/07/07 TONSILLECTOMY PRIMARY/SECONDARY Tonsillectomy FAMILY HISTORY Problem Relation Age of Onset other (Pneumonia) Mother age 72 other (aneursm repair) Mother Prostate Cancer Father CArdiomegaly ( age 72) Aneurysm Brother Lung Cancer Brother Lung Cancer ( age 60's) Heart Brother HI x 2 other (aneurysm repair) Brother CURRENT OUTPATIENT MEDICATIONS Current Outpatient Medications on File Prior to Visit Medication Sig ibuprofen (MOTRIN) 800 mg tablet Take 1 tablet by mouth once daily. gabapentin (NEURONTIN) 300 mg capsule Take 2 capsules by mouth twice daily for 180 days. apixaban (ELIQUIS) 5 mg tab(s) Take 1 tablet by mouth twice daily. lisinopril (ZESTRIL, PRINIVIL) 40 mg tablet Take 1 tablet by mouth once daily. levothyroxine (SYNTHROID) 137 mcg tablet Take 1 tablet by mouth once daily. Take on empty stomach atorvastatin (LIPITOR) 80 mg tablet Take 1 tablet by mouth daily at bedtime. For cholesterol. albuterol HFA (VENTOLIN HFA) 90 mcg/actuation inhaler Inhale 2 Puffs as instructed every 4 hours as needed. hydroCHLOROthiazide (HYDRODIURIL, ESIDRIX) 12.5 mg capsule Take 1 capsule by mouth once daily. tiotropium bromide (SPIRIVA RESPIMAT) 2.5 mcg/actuation inhaler Inhale 2 Puffs as instructed once daily. nitroglycerin sublingual (NITROQUICK) 0.4 mg SL tablet Dissolve 1 tablet under the tongue as needed. FOR CHEST PAIN. IF NO RELIEF CALL 911 hydrocortisone 2.5 % cream Apply to scaly patches on face two times daily as needed for flares. Use 2 weeks on 1 week off albuterol (PROVENTIL) 2.5 mg /3 mL (0.083 %) nebulizer solution Use 3 mL via nebulizer every 4 hours as needed for wheezing/shortness of breath. Use over 5-15minutes. Nebulizer NEBULIZER FOR HOME USE. Current Facility-Administered Medications on File Prior to Visit Medication perflutren lipid microspheres 1.3 mL in NaCl (PF) 0.9% 10 mL injection (DEFINITY) sodium chloride 0.9 % (flush) 10 mL (BD POSIFLUSH) ALLERGIES ALLERGIES Allergen Reactions Prednisone Itching The remainder of the patient's history and review of systems is on the outpatient (more content not included)... [facility] 01-09-2023 Note Patient Outreach ([facility]) JENNIE MCCARTHY ([id number]) 1960 M Date Time Provider Department 01/09/23November, CORIE SANDRA During your visit today, we recorded the following information about you: Corie Christensen RN 01/09/2023 11:01 AM Signed [facility] Telephonic Outreach Provider Action/ 2nd attempt Contacted for: Routine Telephonic Outreach Contact made with patient: No, left message. Corie Christensen RN January 09, 2023 11:00 AM Allergies As of Date: 01/09/2023 Noted Allergy Reaction PREDNISONE 02/27/2011 9 - Itching Date Reviewed: 12/21/2022 Reviewed by: Deacon Marshall APRN.ORCHARD SPRAYER - Fully Assessed Reason for Visit: CDM [Other] Cmt: Check in call Prescriptions as of 01/09/2023 - ibuprofen (MOTRIN) 800 mg tablet Take 1 tablet by mouth once daily. - gabapentin (NEURONTIN) 300 mg capsule Take 2 capsules by mouth twice daily for 180 days. - apixaban (ELIQUIS) 5 mg tab(s) Take 1 tablet by mouth twice daily. - lisinopril (ZESTRIL, PRINIVIL) 40 mg tablet Take 1 tablet by mouth once daily. - levothyroxine (SYNTHROID) 137 mcg tablet Take 1 tablet by mouth once daily. Take on empty stomach - atorvastatin (LIPITOR) 80 mg tablet Take 1 tablet by mouth daily at bedtime. For cholesterol. - albuterol HFA (VENTOLIN HFA) 90 mcg/actuation inhaler Inhale 2 Puffs as instructed every 4 hours as needed. - hydroCHLOROthiazide (HYDRODIURIL, ESIDRIX) 12.5 mg capsule Take 1 capsule by mouth once daily. - tiotropium bromide (SPIRIVA RESPIMAT) 2.5 mcg/actuation inhaler Inhale 2 Puffs as instructed once daily. - nitroglycerin sublingual (NITROQUICK) 0.4 mg SL tablet Dissolve 1 tablet under the tongue as needed. FOR CHEST PAIN. IF NO RELIEF CALL 911 - hydrocortisone 2.5 % cream Apply to scaly patches on face two times daily as needed for flares. Use 2 weeks on 1 week off - albuterol (PROVENTIL) 2.5 mg /3 mL (0.083 %) nebulizer solution Use 3 mL via nebulizer every 4 hours as needed for wheezing/shortness of breath. Use over 5-15minutes. - Nebulizer NEBULIZER FOR HOME USE. Facility-Administered Medications as of 01/09/2023 - perflutren lipid microspheres 1.3 mL in NaCl (PF) 0.9% 10 mL injection (DEFINITY) - sodium chloride 0.9 % (flush) 10 mL (BD POSIFLUSH) Problem List As Of Date 01/09/2023 Noted Resolved Esophageal reflux [K21.9] Internal hemorrhoids without mention of complic*10/24/2006 01/02/2017 Tobacco use disorder [F17.200] 10/24/2006 09/04/2011 COPD with exacerbation (HCC) [J44.1] 10/24/2006 Hypothyroidism [E03.9] 11/05/2006 GYNECOMASTIA [N62] 11/08/2006 11/04/2008 Unspecified sleep apnea [G47.30] 04/03/2007 06/09/2013 Lung bullae (HCC) [J43.9] 05/28/2007 SCREENING FOR CONDITION NOS [Z13.9] 11/21/2007 11/04/2008 Obesity, unspecified [E66.9] 11/04/2008 06/08/2013 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/12/2013 Lumbago [M54.50] 03/08/2009 Patient Noncompliance [Z91.199] 02/03/2010 Erectile dysfunction [N52.9] 02/27/2011 Pulmonary embolism [I26.99] 05/19/2011 01/06/2013 Paroxysmal atrial flutter (HCC) [I48.92] 08/20/2011 Atrial fibrillation (HCC) [I48.91] 06/03/2012 06/18/2019 Cervicalgia [M54.2] 01/15/2013 04/13/2013 Headache [R51] 01/15/2013 04/13/2013 SUMMARY [V999.95] 06/08/2013 02/03/2014 History of pulmonary embolism [Z86.711] 06/08/2013 01/02/2017 History of smoking [Z87.891] 06/08/2013 06/09/2013 Hyperlipidemia [E78.5] 06/08/2013 Atelectasis [J98.11] 06/12/2013 02/03/2014 Hypertension [I10] 06/12/2013 Hypovolemia [E86.1] 06/12/2013 06/15/2013 VANIA (obstructive sleep apnea) AHI 71 [G47.33] 12/30/2013 Obesity [E66.9] 12/30/2013 05/11/2019 Nasal congestion [R09.81] 12/30/2013 08/27/2016 Visual impairment in both eyes [H54.3] 12/30/2013 08/27/2016 Physical deconditioning, multifactorial dyspnea*02/03/2014 08/27/2016 Lumbar spondylosis [M47.816] 02/05/2014 12/31/2017 DDD (degenerative disc disease), lumbar [M51.36]02/05/2014 12/31/2017 Sciatica [M54.30] 02/24/2014 Sebaceous cyst [L72.3] 09/03/2016 01/02/2017 Bronchitis [J40] 04/04/2017 Rosacea [L71.9] 04/04/2017 Obesity, Class II, BMI 35-39.9 [E66.9] 04/02/2018 04/05/2021 Iliac artery aneurysm, 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] 01/13/2020 Nicotine use disorder, F17.2 [F17.200] 01/14/2020 Tinea cruris [B35.6] 12/19/2020 Impaired fasting glucose [R73.01] 12/26/2020 Obesity, Class I, BMI 30-34.9 [E66.9] 03/23/2021 Vitamin D deficiency [E55.9] 04/05/2021 Chronic otitis externa of both ears [H60.63] 09/21/2021 Interstitial pulmonary disease (HCC) [J84.9] 11/07/2021 Encounter Status:Closed by CORIE CHRISTENSEN on 01/09/23 [facility] 01-09-2023 Note HNO ID: [id number] Author: Corie Christensen RN Service: ? Author Type: Registered Nurse Type: Progress Notes Filed: 01/09/2023 11:01 AM Note Text: CDM Telephonic Outreach Provider Action/FYI 2nd attempt Contacted for: Routine Telephonic Outreach Contact made with patient: No, left message. Corie Christensen RN January 09, 2023 11:00 AM [facility] 01-04-2023 Note HNO ID: [id number] Author: Corie Christensen RN Service: ? Author Type: Registered Nurse Type: Progress Notes Filed: 01/04/2023 2:41 PM Note Text: CDM Telephonic Outreach Provider Action/FYI Since previous CDM Telephonic Outreach: [facility] SDOH for food and transportation updated. Contacted for: Routine Telephonic Outreach Contact made with patient: No, left message. Corie Christensen RN January 04, 2023 2:40 PM [facility] 01-04-2023 Note Patient Outreach (AM [facility]) JENNIE MCCARTHY ([id number]) 1960 M Date Time Provider Department 01/04/23November, CORIE SANDRA During your visit today, we recorded the following information about you: Corie Christensen RN 01/04/2023 2:41 PM Signed CDM Telephonic Outreach Provider Action/FYI Since previous CDM Telephonic Outreach: [facility] SDOH for food and transportation updated. Contacted for: Routine Telephonic Outreach Contact made with patient: No, left message. Corie Christensen RN January 04, 2023 2:40 PM Allergies As of Date: 01/04/2023 Noted Allergy Reaction PREDNISONE 02/27/2011 9 - Itching Date Reviewed: 12/21/2022 Reviewed by: Deacon Marshall APRN.[employer]CHARD [employer]ER - Fully Assessed Reason for Visit: CDM [Other] Cmt: Check in call Prescriptions as of 01/04/2023 - ibuprofen (MOTRIN) 800 mg tablet Take 1 tablet by mouth once daily. - gabapentin (NEURONTIN) 300 mg capsule Take 2 capsules by mouth twice daily for 180 days. - apixaban (ELIQUIS) 5 mg tab(s) Take 1 tablet by mouth twice daily. - lisinopril (ZESTRIL, PRINIVIL) 40 mg tablet Take 1 tablet by mouth once daily. - levothyroxine (SYNTHROID) 137 mcg tablet Take 1 tablet by mouth once daily. Take on empty stomach - atorvastatin (LIPITOR) 80 mg tablet Take 1 tablet by mouth daily at bedtime. For cholesterol. - albuterol HFA (VENTOLIN HFA) 90 mcg/actuation inhaler Inhale 2 Puffs as instructed every 4 hours as needed. - hydroCHLOROthiazide (HYDRODIURIL, ESIDRIX) 12.5 mg capsule Take 1 capsule by mouth once daily. - tiotropium bromide (SPIRIVA RESPIMAT) 2.5 mcg/actuation inhaler Inhale 2 Puffs as instructed once daily. - nitroglycerin sublingual (NITROQUICK) 0.4 mg SL tablet Dissolve 1 tablet under the tongue as needed. FOR CHEST PAIN. IF NO RELIEF CALL 911 - hydrocortisone 2.5 % cream Apply to scaly patches on face two times daily as needed for flares. Use 2 weeks on 1 week off - albuterol (PROVENTIL) 2.5 mg /3 mL (0.083 %) nebulizer solution Use 3 mL via nebulizer every 4 hours as needed for wheezing/shortness of breath. Use over 5-15minutes. - Nebulizer NEBULIZER FOR HOME USE. Facility-Administered Medications as of 01/04/2023 - perflutren lipid microspheres 1.3 mL in NaCl (PF) 0.9% 10 mL injection (DEFINITY) - sodium chloride 0.9 % (flush) 10 mL (BD POSIFLUSH) Problem List As Of Date 01/04/2023 Noted Resolved Esophageal reflux [K21.9] Internal hemorrhoids without mention of complic*10/24/2006 01/02/2017 Tobacco use disorder [F17.200] 10/24/2006 09/04/2011 COPD with exacerbation (HCC) [J44.1] 10/24/2006 Hypothyroidism [E03.9] 11/05/2006 GYNECOMASTIA [N62] 11/08/2006 11/04/2008 Unspecified sleep apnea [G47.30] 04/03/2007 06/09/2013 Lung bullae (HCC) [J43.9] 05/28/2007 SCREENING FOR CONDITION NOS [Z13.9] 11/21/2007 11/04/2008 Obesity, unspecified [E66.9] 11/04/2008 06/08/2013 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/12/2013 Lumbago [M54.50] 03/08/2009 Patient Noncompliance [Z91.199] 02/03/2010 Erectile dysfunction [N52.9] 02/27/2011 Pulmonary embolism [I26.99] 05/19/2011 01/06/2013 Paroxysmal atrial flutter (HCC) [I48.92] 08/20/2011 Atrial fibrillation (HCC) [I48.91] 06/03/2012 06/18/2019 Cervicalgia [M54.2] 01/15/2013 04/13/2013 Headache [R51] 01/15/2013 04/13/2013 SUMMARY [V999.95] 06/08/2013 02/03/2014 History of pulmonary embolism [Z86.711] 06/08/2013 01/02/2017 History of smoking [Z87.891] 06/08/2013 06/09/2013 Hyperlipidemia [E78.5] 06/08/2013 Atelectasis [J98.11] 06/12/2013 02/03/2014 Hypertension [I10] 06/12/2013 Hypovolemia [E86.1] 06/12/2013 06/15/2013 VANIA (obstructive sleep apnea) AHI 71 [G47.33] 12/30/2013 Obesity [E66.9] 12/30/2013 05/11/2019 Nasal congestion [R09.81] 12/30/2013 08/27/2016 Visual impairment in both eyes [H54.3] 12/30/2013 08/27/2016 Physical deconditioning, multifactorial dyspnea*02/03/2014 08/27/2016 Lumbar spondylosis [M47.816] 02/05/2014 12/31/2017 DDD (degenerative disc disease), lumbar [M51.36]02/05/2014 12/31/2017 Sciatica [M54.30] 02/24/2014 Sebaceous cyst [L72.3] 09/03/2016 01/02/2017 Bronchitis [J40] 04/04/2017 Rosacea [L71.9] 04/04/2017 Obesity, Class II, BMI 35-39.9 [E66.9] 04/02/2018 04/05/2021 Iliac artery aneurysm, 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] 01/13/2020 Nicotine use disorder, F17.2 [F17.200] 01/14/2020 Tinea cruris [B35.6] 12/19/2020 Impaired fasting glucose [R73.01] 12/26/2020 Obesity, Class I, BMI 30-34.9 [E66.9] 03/23/2021 Vitamin D deficiency [E55.9] 04/05/2021 Chronic otitis externa of both ears [H60.63] 09/21/2021 Interstitial pulmonary disease (HCC) [J84.9] 11/07/2021 Encounter Status:Closed by CORIE CHRISTENSEN on 01/04/23 [facility] 12-21-2022 Note HNO ID: [id number] Author: Deacon Marshall APRN.[employer]CHARD [employer]ER Service: ? Author Type: Nurse Practitioner Type: Progress Notes Filed: 12/21/2022 10:17 AM Note Text: Subjective HPI HPI Jennie Mccarthy is a 62 year old male who presents today for CC of something flew into left eye this morning, rubbed eye, now feels like something stuck in left eye. Has tried nothing for relief. Symptoms are worsened by nothing. Denies vision rios. .Patient presents with: Eye Problem: Pt reproted foreign body sensation (LT) eye, denied injury, onset AM, visual exam 20/30. PAST MEDICAL HISTORY Diagnosis Date AAA (abdominal aortic aneurysm) (HCC) 03/02/2009 Atrial fibrillation (HCC) Atrial flutter (HCC) 08/20/2011 Chronic cholecystitis Coronary artery disease DDD (degenerative disc disease), lumbar 02/05/2014 Emphysematous bleb (HCC) 05/28/2007 Right upper lung. Erectile dysfunction 02/27/2011 Esophageal reflux Gastroesophageal reflux Fatty liver GYNECOMASTIA 11/08/2006 Hemorrhage of rectum and anus 12/25/2009 bleeding hemorrhoids Hiatal hernia Hypertension 06/12/2013 Obesity, unspecified 11/04/2008 Obstructive sleep apnea CPAP Other and unspecified hyperlipidemia 11/05/2006 Other emphysema (HCC) Emphysema Pulmonary embolism (HCC) 05/19/2011 Substance abuse (HCC) Tobacco use disorder 10/24/2006 ex-smoker Unspecified constipation Constipation Unspecified hypothyroidism 11/05/2006 PAST SURGICAL HISTORY Procedure Laterality Date COLONOSCOPY 2005 COLONOSCOPY FLX DX W/COLLJ SPEC WHEN PFRMD 12/26/09 DIR RPR ANEURYSM ABDOMINAL AORTA 06/12/2013 Abd Aortic Aneurysm Repair, Endovascular ENDOVAS REPAIR ILIAC ANEURYSM Right 01/15/2020 R hypogastric coiling, R common femoral access FOCAL LASER RETINAL TUMOR OS (LEFT EYE) Left 10/2019 Retinal Tear HEMORRHOIDECTOMY INTERNAL RUBBER BAND LIGATIONS 11/2004 LAPS SURG CHOLECYSTECTOMY W/CHOLANGIOGRAPHY 07/07/07 TONSILLECTOMY PRIMARY/SECONDARY Tonsillectomy ALLERGIES Prednisone MEDICATIONS ibuprofen (MOTRIN) 800 mg tabletTake 1 tablet by mouth once daily.Disp: 30 tabletRfl: 2 apixaban (ELIQUIS) 5 mg tab(s)Take 1 tablet by mouth twice daily.Disp: 180 tabletRfl: 3 lisinopril (ZESTRIL, PRINIVIL) 40 mg tabletTake 1 tablet by mouth once daily.Disp: 90 tabletRfl: 3 levothyroxine (SYNTHROID) 137 mcg tabletTake 1 tablet by mouth once daily. Take on empty stomachDisp: 90 tabletRfl: 3 atorvastatin (LIPITOR) 80 mg tabletTake 1 tablet by mouth daily at bedtime. For cholesterol.Disp: 90 tabletRfl: 3 albuterol HFA (VENTOLIN HFA) 90 mcg/actuation inhalerInhale 2 Puffs as instructed every 4 hours as needed.Disp: 18 gRfl: 3 hydroCHLOROthiazide (HYDRODIURIL, ESIDRIX) 12.5 mg capsuleTake 1 capsule by mouth once daily.Disp: 90 capsuleRfl: 3 tiotropium bromide (SPIRIVA RESPIMAT) 2.5 mcg/actuation inhalerInhale 2 Puffs as instructed once daily.Disp: 1 InhalerRfl: 5 nitroglycerin sublingual (NITROQUICK) 0.4 mg SL tabletDissolve 1 tablet under the tongue as needed. FOR CHEST PAIN. IF NO RELIEF CALL 911Disp: 25 tabletRfl: 1 hydrocortisone 2.5 % creamApply to scaly patches on face two times daily as needed for flares. Use 2 weeks on 1 week offDisp: 30 gRfl: 2 albuterol (PROVENTIL) 2.5 mg /3 mL (0.083 %) nebulizer solutionUse 3 mL via nebulizer every 4 hours as needed for wheezing/shortness of breath. Use over 5-15minutes.Disp: 3 mLRfl: 0 NebulizerNEBULIZER FOR HOME USE.Disp: 1 KitRfl: 0 erythromycin (ROMYCIN) 5 mg/gram (0.5 %) ophthalmic ointmentUse 1 application in the left eye three times daily for 7 days.Disp: 3.5 gRfl: 0 gabapentin (NEURONTIN) 300 mg capsuleTake 2 capsules by mouth twice daily for 180 days.Disp: 120 capsuleRfl: 5 FAMILY HISTORY Problem Relation Age of Onset other (Pneumonia) Mother age 72 other (aneursm repair) Mother Prostate Cancer Father CArdiomegaly ( age 72) Aneurysm Brother Lung Cancer Brother Lung Cancer ( age 60's) Heart Brother HI x 2 other (aneurysm repair) Brother Social History Tobacco Use Smoking status: Every Day Packs/day: 0.50 Years: 46.00 Pack years: 23.00 Types: Cigarettes Start date: 07/08/1973 Smokeless tobacco: Never Tobacco comments: Currently 0.5ppd 10/12/22 Vaping Use Vaping Use: Never used Substance Use Topics Alcohol use: No Drug use: Yes Types: Marijuana Comment: Off and on. ROS Objective Blood pressure 116/70, pulse 66, temperature 36.7 ?C (98 ?F), temperature source Tympanic, resp. rate 18, weight 99.2 kg (218 lb 12.8 oz), SpO2 95 %. Physical Exam Constitutional: General: He is not in acute distress. Appearance: He is not toxic-appearing. HENT: Right Ear: Hearing, tympanic membrane and external ear normal. Left Ear: Hearing, tympanic membrane, ear canal and external ear normal. Nose: No mucosal edema. Mouth/Throat: Pharynx: Uvula midline. Eyes: General: Right eye: No discharge. Left eye: No discharge (more content not included)... [facility] 12-21-2022 History of Present illness Narrative Subjective HPI HPI Jennie Mccarthy is a 62 year old male who presents today for CC of something flew into left eye this morning, rubbed eye, now feels like something stuck in left eye. Has tried nothing for relief. Symptoms are worsened by nothing. Denies vision rios. .Patient presents with: Eye Problem: Pt reproted foreign body sensation (LT) eye, denied injury, onset AM, visual exam 20/30. PAST MEDICAL HISTORY Diagnosis Date AAA (abdominal aortic aneurysm) (HCC) 03/02/2009 Atrial fibrillation (HCC) Atrial flutter (HCC) 08/20/2011 Chronic cholecystitis Coronary artery disease DDD (degenerative disc disease), lumbar 02/05/2014 Emphysematous bleb (HCC) 05/28/2007 Right upper lung. Erectile dysfunction 02/27/2011 Esophageal reflux Gastroesophageal reflux Fatty liver GYNECOMASTIA 11/08/2006 Hemorrhage of rectum and anus 12/25/2009 bleeding hemorrhoids Hiatal hernia Hypertension 06/12/2013 Obesity, unspecified 11/04/2008 Obstructive sleep apnea CPAP Other and unspecified hyperlipidemia 11/05/2006 Other emphysema (HCC) Emphysema Pulmonary embolism (HCC) 05/19/2011 Substance abuse (HCC) Tobacco use disorder 10/24/2006 ex-smoker Unspecified constipation Constipation Unspecified hypothyroidism 11/05/2006 PAST SURGICAL HISTORY Procedure Laterality Date COLONOSCOPY 2005 COLONOSCOPY FLX DX W/COLLJ SPEC WHEN PFRMD 12/26/09 DIR RPR ANEURYSM ABDOMINAL AORTA 06/12/2013 Abd Aortic Aneurysm Repair, Endovascular ENDOVAS REPAIR ILIAC ANEURYSM Right 01/15/2020 R hypogastric coiling, R common femoral access FOCAL LASER RETINAL TUMOR OS (LEFT EYE) Left 10/2019 Retinal Tear HEMORRHOIDECTOMY INTERNAL RUBBER BAND LIGATIONS 11/2004 LAPS SURG CHOLECYSTECTOMY W/CHOLANGIOGRAPHY 07/07/07 TONSILLECTOMY PRIMARY/SECONDARY <AGE 11 1972 Tonsillectomy ALLERGIES Prednisone MEDICATIONS ibuprofen (MOTRIN) 800 mg tablet^Take 1 tablet by mouth once daily.^Disp: 30 tablet^Rfl: 2 apixaban (ELIQUIS) 5 mg tab(s)^Take 1 tablet by mouth twice daily.^Disp: 180 tablet^Rfl: 3 lisinopril (ZESTRIL, PRINIVIL) 40 mg tablet^Take 1 tablet by mouth once daily.^Disp: 90 tablet^Rfl: 3 levothyroxine (SYNTHROID) 137 mcg tablet^Take 1 tablet by mouth once daily. Take on empty stomach^Disp: 90 tablet^Rfl: 3 atorvastatin (LIPITOR) 80 mg tablet^Take 1 tablet by mouth daily at bedtime. For cholesterol.^Disp: 90 tablet^Rfl: 3 albuterol HFA (VENTOLIN HFA) 90 mcg/actuation inhaler^Inhale 2 Puffs as instructed every 4 hours as needed.^Disp: 18 g^Rfl: 3 hydroCHLOROthiazide (HYDRODIURIL, ESIDRIX) 12.5 mg capsule^Take 1 capsule by mouth once daily.^Disp: 90 capsule^Rfl: 3 tiotropium bromide (SPIRIVA RESPIMAT) 2.5 mcg/actuation inhaler^Inhale 2 Puffs as instructed once daily.^Disp: 1 Inhaler^Rfl: 5 nitroglycerin sublingual (NITROQUICK) 0.4 mg SL tablet^Dissolve 1 tablet under the tongue as needed. FOR CHEST PAIN. IF NO RELIEF CALL 911^Disp: 25 tablet^Rfl: 1 hydrocortisone 2.5 % cream^Apply to scaly patches on face two times daily as needed for flares. Use 2 weeks on 1 week off^Disp: 30 g^Rfl: 2 albuterol (PROVENTIL) 2.5 mg /3 mL (0.083 %) nebulizer solution^Use 3 mL via nebulizer every 4 hours as needed for wheezing/shortness of breath. Use over 5-15minutes.^Disp: 3 mL^Rfl: 0 Nebulizer^NEBULIZER FOR HOME USE.^Disp: 1 Kit^Rfl: 0 erythromycin (ROMYCIN) 5 mg/gram (0.5 %) ophthalmic ointment^Use 1 application in the left eye three times daily for 7 days.^Disp: 3.5 g^Rfl: 0 gabapentin (NEURONTIN) 300 mg capsule^Take 2 capsules by mouth twice daily for 180 days.^Disp: 120 capsule^Rfl: 5 FAMILY HISTORY Problem Relation Age of Onset other (Pneumonia) Mother age 72 other (aneursm repair) Mother Prostate Cancer Father CArdiomegaly ( age 72) Aneurysm Brother Lung Cancer Brother Lung Cancer ( age 60's) Heart Brother HI x 2 other (aneurysm repair) Brother Social History Tobacco Use Smoking status: Every Day Packs/day: 0.50 Years: 46.00 Pack years: 23.00 Types: Cigarettes Start date: 07/08/1973 Smokeless tobacco: Never Tobacco comments: Currently 0.5ppd 10/12/22 Vaping Use Vaping Use: Never used Substance Use Topics Alcohol use: No Drug use: Yes Types: Marijuana Comment: Off and on. ROS Objective Blood pressure 116/70, pulse 66, temperature 36.7 C (98 F), temperature source Tympanic, resp. rate 18, weight 99.2 kg (218 lb 12.8 oz), SpO2 95 %. Physical Exam Constitutional: General: He is not in acute distress. Appearance: He is not toxic-appearing. HENT: Right Ear: Hearing, tympanic membrane and external ear normal. Left Ear: Hearing, tympanic membrane, ear canal and external ear normal. Nose: No mucosal edema. Mouth/Throat: Pharynx: Uvula midline. Eyes: General: Right eye: No discharge. Left eye: No discharge. Conjunctiva/sclera: Right eye: Right conjunctiva is not injected. Left eye: Left conjunctiva is injected. Comments: Left eye stain negative. Lymphadenopathy: Cervical: Right cervical: No superficial cervical adenopathy. Left cervical: No superficial cervical adenopathy. Comments: No cervical lymphadenopathy bilaterally Neurological: Mental Status: He is oriented to person, place, and time. ASSESSMENT/PLAN: 1. Irritation of left eye - ICD9: 379.99, ICD10: H57.89 -use medication as prescribed If s/s persist see eye dr in 2 days Worsening s/s go to ER. - ERYTHROMYCIN 5 MG/GRAM (0.5 %) EYE OINTMENT Deacon Marshall APRN.EDWIN documented in this encounter [facility] 12-06-2022 Note HNO ID: [id number] Author: Vic Martinez RN Service: ? Author Type: Registered Nurse Type: Progress Notes Filed: 12/06/2022 4:09 PM Note Text: CDM Telephonic Outreach Provider Action/FYI Contacted for: Routine Telephonic Outreach Contact made with patient: Yes Patient identified by name and date of . Discussed care with patient and spouse Are you experiencing any new or worsening symptoms you need to talk about today? No Disease Specific Do you check your blood pressure at home? No Do you have new or worsening shortness of breath with activity? No Baseline: SOB with exertion Do you have new or worsening cough? No daily cough d/t smoking Do you have new or worsening wheezing? No Do you need to use your rescue (Albuterol) inhaler or nebulizer more often than normal? No Baseline: Albuterol inhaler- PRN Nebulizer- PRN Based on service order dispatcher chief, the following disposition is advised: No symptoms or symptoms present, not severe. Routed to: No Action Needed VALENTINE Education Provided this Outreach: No Vic Martinez RN December 06, 2022 4:07 PM Care Coordination next call- Last CDM outreach contact: 12/06/22 No CDM concerns Baseline: 12/06/22 ADL, FALL, GOAL due: 03/06/23 11/09/22-chronic disease goal- COPD SDOH:no [facility] 12-06-2022 History of Present illness Narrative CDM Telephonic Outreach Provider Action/FYI Contacted for: Routine Telephonic Outreach Contact made with patient: Yes Patient identified by name and date of . Discussed care with patient and spouse Are you experiencing any new or worsening symptoms you need to talk about today? No Disease Specific Do you check your blood pressure at home? No Do you have new or worsening shortness of breath with activity? No Baseline: SOB with exertion Do you have new or worsening cough? No daily cough d/t smoking Do you have new or worsening wheezing? No Do you need to use your rescue (Albuterol) inhaler or nebulizer more often than normal? No Baseline: Albuterol inhaler- PRN Nebulizer- PRN Based on service order dispatcher chief, the following disposition is advised: No symptoms or symptoms present, not severe. Routed to: No Action Needed VALENTINE Education Provided this Outreach: No Vic Martinez RN December 06, 2022 4:07 PM Care Coordination next call- Last CDM outreach contact: 12/06/22 No CDM concerns Baseline: 12/06/22 ADL, FALL, GOAL due: 03/06/23 11/09/22-chronic disease goal- COPD SDOH:no documented in this encounter [facility] 12-06-2022 Note Patient Outreach ([facility]) JENNIE MCCARTHY ([id number]) 1960 M Date Time Provider Department 12/06/22 VIC AMRTINEZ [facility] During your visit today, we recorded the following information about you: Vic Martinez RN 12/06/2022 4:09 PM Signed CDM Telephonic Outreach Provider Action/FYI Contacted for: Routine Telephonic Outreach Contact made with patient: Yes Patient identified by name and date of . Discussed care with patient and spouse Are you experiencing any new or worsening symptoms you need to talk about today? No Disease Specific Do you check your blood pressure at home? No Do you have new or worsening shortness of breath with activity? No Baseline: SOB with exertion Do you have new or worsening cough? No daily cough d/t smoking Do you have new or worsening wheezing? No Do you need to use your rescue (Albuterol) inhaler or nebulizer more often than normal? No Baseline: Albuterol inhaler- PRN Nebulizer- PRN Based on service order dispatcher chief, the following disposition is advised: No symptoms or symptoms present, not severe. Routed to: No Action Needed VALENTINE Education Provided this Outreach: No Vic Martinez RN December 06, 2022 4:07 PM Care Coordination next call- Last CDM outreach contact: 12/06/22 No CDM concerns Baseline: 12/06/22 ADL, FALL, GOAL due: 03/06/23 11/09/22-chronic disease goal- COPD SDOH:no Allergies As of Date: 12/06/2022 Noted Allergy Reaction PREDNISONE 02/27/2011 9 - Itching Date Reviewed: 11/26/2022 Reviewed by: Kamini Ivy APRN.[employer]CHARD [employer]AYER - Fully Assessed Reason for Visit: community monitoring [Other] Cmt: CDM telephonic Prescriptions as of 12/06/2022 - ibuprofen (MOTRIN) 800 mg tablet Take 1 tablet by mouth once daily. - gabapentin (NEURONTIN) 300 mg capsule Take 2 capsules by mouth twice daily for 180 days. - apixaban (ELIQUIS) 5 mg tab(s) Take 1 tablet by mouth twice daily. - lisinopril (ZESTRIL, PRINIVIL) 40 mg tablet Take 1 tablet by mouth once daily. - levothyroxine (SYNTHROID) 137 mcg tablet Take 1 tablet by mouth once daily. Take on empty stomach - atorvastatin (LIPITOR) 80 mg tablet Take 1 tablet by mouth daily at bedtime. For cholesterol. - albuterol HFA (VENTOLIN HFA) 90 mcg/actuation inhaler Inhale 2 Puffs as instructed every 4 hours as needed. - hydroCHLOROthiazide (HYDRODIURIL, ESIDRIX) 12.5 mg capsule Take 1 capsule by mouth once daily. - tiotropium bromide (SPIRIVA RESPIMAT) 2.5 mcg/actuation inhaler Inhale 2 Puffs as instructed once daily. - nitroglycerin sublingual (NITROQUICK) 0.4 mg SL tablet Dissolve 1 tablet under the tongue as needed. FOR CHEST PAIN. IF NO RELIEF CALL 911 - hydrocortisone 2.5 % cream Apply to scaly patches on face two times daily as needed for flares. Use 2 weeks on 1 week off - albuterol (PROVENTIL) 2.5 mg /3 mL (0.083 %) nebulizer solution Use 3 mL via nebulizer every 4 hours as needed for wheezing/shortness of breath. Use over 5-15minutes. - Nebulizer NEBULIZER FOR HOME USE. 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] 05/28/2007 SCREENING FOR CONDITION NOS [Z13.9] 11/21/2007 11/04/2008 Obesity, unspecified [E66.9] 11/04/2008 06/08/2013 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/12/2013 Lumbago [M54.50] 03/08/2009 Patient Noncompliance [Z91.199] 02/03/2010 Erectile dysfunction [N52.9] 02/27/2011 Pulmonary embolism [I26.99] 05/19/2011 01/06/2013 Paroxysmal atrial flutter (HCC) [I48.92] 08/20/2011 Atrial fibrillation (HCC) [I48.91] 06/03/2012 06/18/2019 Cervicalgia [M54.2] 01/15/2013 04/13/2013 Headache [R51] 01/15/2013 04/13/2013 SUMMARY [V999.95] 06/08/2013 02/03/2014 History of pulmonary embolism [Z86.711] 06/08/2013 01/02/2017 History of smoking [Z87.891] 06/08/2013 06/09/2013 Hyperlipidemia [E78.5] 06/08/2013 Atelectasis [J98.11] 06/12/2013 02/03/2014 Hypertension [I10] 06/12/2013 Hypovolemia [E86.1] 06/12/2013 06/15/2013 VANIA (obstructive sleep apnea) AHI 71 [G47.33] 12/30/2013 Obesity [E66.9] 12/30/2013 05/11/2019 Nasal congestion [R09.81] 12/30/2013 08/27/2016 Visual impairment in both eyes [H54.3] 12/30/2013 08/27/2016 Physical deconditioning, multifactorial dyspnea*02/03/2014 08/27/2016 Lumbar spondylosis [M47.816] 02/05/2014 12/31/2017 DDD (degenerative disc disease), lumbar [M51.36]02/05/2014 12/31/2017 Sciatic (more content not included)... [facility] 11-26-2022 Note HNO ID: [id number] Author: Kamini Ivy APRN.[employer]CHARD [employer]AYER Service: ? Author Type: Nurse Practitioner Type: Progress Notes Filed: 11/26/2022 3:34 PM Note Text: CC: Patient presents with: F/U 6 months HPI Jennie Mccarthy is a 62 year old male who presents today for above. He reports dysphagia for months now, mostly solids but sometimes trouble swallowing liquids. Associated with sore throat and odynophagia. Denies heartburn, reflux, hoarseness, voice changes, abdominal pain, bloating, vomiting, early satiety. ILD: referred to rheumatology by his wood router hand for possible Lupus. COPD: using inhalers as prescribed. Continues to smoke, no desire to quit. Denies frequent cough, wheezing or SOB. HTN-Medication changes:No Taking all medications as prescribed: Yes Side effects: No Home BP's: No Denies: headache, chest pain, palpitations, dyspnea, and peripheral edema. Last 3 Encounter BP Readings: Date: BP: 11/26/2022 128/70 11/01/2022 119/76 10/12/2022 168/88 VANIA: He was compliant with CPAP until recently. His house was infested with bugs and he is afraid to use the machine now. REVIEW OF SYSTEMS See HPI PAST MEDICAL HISTORY Diagnosis Date AAA (abdominal aortic aneurysm) (HCC) 03/02/2009 Atrial fibrillation (HCC) Atrial flutter (HCC) 08/20/2011 Chronic cholecystitis Coronary artery disease DDD (degenerative disc disease), lumbar 02/05/2014 Emphysematous bleb (HCC) 05/28/2007 Right upper lung. Erectile dysfunction 02/27/2011 Esophageal reflux Gastroesophageal reflux Fatty liver GYNECOMASTIA 11/08/2006 Hemorrhage of rectum and anus 12/25/2009 bleeding hemorrhoids Hiatal hernia Hypertension 06/12/2013 Obesity, unspecified 11/04/2008 Obstructive sleep apnea CPAP Other and unspecified hyperlipidemia 11/05/2006 Other emphysema (HCC) Emphysema Pulmonary embolism (HCC) 05/19/2011 Substance abuse (HCC) Tobacco use disorder 10/24/2006 ex-smoker Unspecified constipation Constipation Unspecified hypothyroidism 11/05/2006 PAST SURGICAL HISTORY Procedure Laterality Date COLONOSCOPY 2005 COLONOSCOPY FLX DX W/COLLJ SPEC WHEN PFRMD 12/26/09 DIR RPR ANEURYSM ABDOMINAL AORTA 06/12/2013 Abd Aortic Aneurysm Repair, Endovascular ENDOVAS REPAIR ILIAC ANEURYSM Right 01/15/2020 R hypogastric coiling, R common femoral access FOCAL LASER RETINAL TUMOR OS (LEFT EYE) Left 10/2019 Retinal Tear HEMORRHOIDECTOMY INTERNAL RUBBER BAND LIGATIONS 11/2004 LAPS SURG CHOLECYSTECTOMY W/CHOLANGIOGRAPHY 07/07/07 TONSILLECTOMY PRIMARY/SECONDARY Tonsillectomy ALLERGIES Prednisone MEDICATIONS ibuprofen (MOTRIN) 800 mg tabletTake 800 mg by mouth once daily.Disp: Rfl: gabapentin (NEURONTIN) 300 mg capsuleTake 2 capsules by mouth twice daily for 180 days.Disp: 120 capsuleRfl: 5 apixaban (ELIQUIS) 5 mg tab(s)Take 1 tablet by mouth twice daily.Disp: 180 tabletRfl: 3 lisinopril (ZESTRIL, PRINIVIL) 40 mg tabletTake 1 tablet by mouth once daily.Disp: 90 tabletRfl: 3 levothyroxine (SYNTHROID) 137 mcg tabletTake 1 tablet by mouth once daily. Take on empty stomachDisp: 90 tabletRfl: 3 atorvastatin (LIPITOR) 80 mg tabletTake 1 tablet by mouth daily at bedtime. For cholesterol.Disp: 90 tabletRfl: 3 albuterol HFA (VENTOLIN HFA) 90 mcg/actuation inhalerInhale 2 Puffs as instructed every 4 hours as needed.Disp: 18 gRfl: 3 hydroCHLOROthiazide (HYDRODIURIL, ESIDRIX) 12.5 mg capsuleTake 1 capsule by mouth once daily.Disp: 90 capsuleRfl: 3 tiotropium bromide (SPIRIVA RESPIMAT) 2.5 mcg/actuation inhalerInhale 2 Puffs as instructed once daily.Disp: 1 InhalerRfl: 5 nitroglycerin sublingual (NITROQUICK) 0.4 mg SL tabletDissolve 1 tablet under the tongue as needed. FOR CHEST PAIN. IF NO RELIEF CALL 911Disp: 25 tabletRfl: 1 fluocinonide (LIDEX) 0.05 % ointmentApply to affected area on leg twice daily as needed. Cycle 2 weeks on, 1 week off. Not for face, armpits, or groinDisp: 60 gRfl: 0 (Patient not taking: Reported on 11/01/2022) ketoconazole (NIZORAL) 2 % shampooWash face and scalp daily as neededDisp: 120 mLRfl: 5 (Patient not taking: Reported on 11/01/2022) hydrocortisone 2.5 % creamApply to scaly patches on face two times daily as needed for flares. Use 2 weeks on 1 week offDisp: 30 gRfl: 2 ketoconazole (NIZORAL) 2 % creamApply to affected and groin two times daily for maintenanceDisp: 60 gRfl: 5 (Patient not taking: Reported on 11/01/2022) albuterol (PROVENTIL) 2.5 mg /3 mL (0.083 %) nebulizer solutionUse 3 mL via nebulizer every 4 hours as needed for wheezing/shortness of breath. Use over 5-15minutes.Disp: 3 mLRfl: 0 NebulizerNEBULIZER FOR HOME USE.Disp: 1 KitRfl: 0 FAMILY HISTORY Problem Relation Age of Onset other (Pneumonia) Mother age 72 other (aneursm repair) Mother Prostate Cancer Father CArdiomegaly ( age 72) Aneurysm Brother Lung Cancer Brother Lung Cancer ( age 60's) Heart Brother HI x 2 other (aneurysm repair) Brother So (more content not included)... [facility] 11-14-2022 Note HNO ID: [id number] Author: Tg Mckeon MA Service: ? Author Type: Delivery Person Type: Progress Notes Filed: 11/14/2022 8:07 AM Note Text: POPULATION HEALTH NAVIGATION OUTREACH Action/November 14, 2022 8:07 AM Second attempt to reach patient unsuccessful. Left second message for him to return call for scheduling assistance, thank you Patient Identified by Name and : NO Outreach Outcome/Action Unable to reach patient: Left message Did you use a PCP flex slot to schedule this appointment? N/A Tg Mckeon MA November 14, 2022 8:07 AM [facility] 11-12-2022 Note HNO ID: [id number] Author: Tg Mckeon MA Service: ? Author Type: Delivery Person Type: Progress Notes Filed: 11/12/2022 9:11 AM Note Text: POPULATION HEALTH NAVIGATION OUTREACH Action/I November 12, 2022 9:10 AM Left message for patient to return call for scheduling assistance. My chart message also sent Patient Identified by Name and : NO Outreach Outcome/Action Unable to reach patient: Left message MyChart message sent Did you use a PCP flex slot to schedule this appointment? No Reason for Outreach [facility] Payer: Payor: [employer] [facility] / Plan: ANTHEM MEDIBLUE HMO / Product Type: HMO / Care Gap Reviewed:: Follow-up appointment Reminder: Reminder note to check Health Maintenance for items below Health Maintenance items due: DEPRESSION ASSESSMENT Never done Navigation Signature: Tg Mckeon MA November 12, 2022 9:10 AM [facility] 11-09-2022 Note HNO ID: [id number] Author: Vic Martinez RN Service: ? Author Type: Registered Nurse Type: Progress Notes Filed: 11/09/2022 3:40 PM Note Text: CDM Telephonic Outreach Provider Action/ Pt states for about a year he has trouble swallowing when eating certain foods or drinks Pt requesting appt for evaluation Routed to schedulers Care Coordination next call- Last CDM outreach contact: 11/09/22 Baseline: 05/29/22 ADL, FALL, GOAL due: 03/06/23 11/09/22-chronic disease goal- COPD Contacted for: Routine Telephonic Outreach Contact made with patient: Yes Patient identified by name and date of . Discussed care with patient Are you experiencing any new or worsening symptoms you need to talk about today? Yes Based on service order dispatcher chief, the following disposition is advised: Symptoms present, not severe. Routed to: Navigation Team: PCP visit within 7 days VALENTINE Education Provided this Outreach: No Vic Martinez RN November 09, 2022 3:37 PM [facility] 11-09-2022 History of Present illness Narrative [facility] Telephonic Outreach Provider Action/FYI Pt states for about a year he has trouble swallowing when eating certain foods or drinks Pt requesting appt for evaluation Routed to schedulers Care Coordination next call- Last CDM outreach contact: 11/09/22 Baseline: 05/29/22 ADL, FALL, GOAL due: 03/06/23 11/09/22-chronic disease goal- COPD Contacted for: Routine Telephonic Outreach Contact made with patient: Yes Patient identified by name and date of . Discussed care with patient Are you experiencing any new or worsening symptoms you need to talk about today? Yes Based on service order dispatcher chief, the following disposition is advised: Symptoms present, not severe. Routed to: Navigation Team: PCP visit within 7 days VALENTINE Education Provided this Outreach: No Vic Martinez RN November 09, 2022 3:37 PM [facility] Telephonic Outreach Provider Action/FYI Care Coordination next call- lvm x 7 with ph# Last CDM outreach contact: 08/16/22- couple days prior had abd pain . Declined virtualist or appt. ED 09/27 &10/04 outside [facility] Baseline: 05/29/22 ADL, FALL, GOAL due: 03/06/23 Contacted for: Routine Telephonic Outreach Contact made with patient: No, left message. Vic Martinez RN November 09, 2022 10:25 AM documented in this encounter [facility] 11-09-2022 Note Patient Outreach (AM BC) JENNIE MCCARTHY ([id number]) 1960 M Date Time Provider Department 11/09/22 VIC MARTINEZ During your visit today, we recorded the following information about you: Vic Martinez RN 11/09/2022 10:25 AM Signed CD Telephonic Outreach Provider Action/FYI Care Coordination next call- lvm x 7 with ph# Last CDM outreach contact: 08/16/22- couple days prior had abd pain . Declined virtualist or appt. ED 09/27 AND10/04 outside [facility] Baseline: 05/29/22 ADL, FALL, GOAL due: 03/06/23 Contacted for: Routine Telephonic Outreach Contact made with patient: No, left message. Vic Martinez RN November 09, 2022 10:25 AM Vic Martinez RN 11/09/2022 3:40 PM Signed [facility] Telephonic Outreach Provider Action/FYI Pt states for about a year he has trouble swallowing when eating certain foods or drinks Pt requesting appt for evaluation Routed to schedulers Care Coordination next call- Last CDM outreach contact: 11/09/22 Baseline: 05/29/22 ADL, FALL, GOAL due: 03/06/23 11/09/22-chronic disease goal- COPD Contacted for: Routine Telephonic Outreach Contact made with patient: Yes Patient identified by name and date of . Discussed care with patient Are you experiencing any new or worsening symptoms you need to talk about today? Yes Based on service order dispatcher chief, the following disposition is advised: Symptoms present, not severe. Routed to: Navigation Team: PCP visit within 7 days VALENTINE Education Provided this Outreach: No Vic Martinez RN November 09, 2022 3:37 PM Tg Mckeon MA 11/12/2022 9:11 AM Signed POPULATION HEALTH NAVIGATION OUTREACH Action/November 12, 2022 9:10 AM Left message for patient to return call for scheduling assistance. My chart message also sent Patient Identified by Name and : NO Outreach Outcome/Action Unable to reach patient: Left message MyChart message sent Did you use a PCP flex slot to schedule this appointment? No Reason for Outreach [facility] Payer: Payor: [employer] / Plan: ANTHEM MED[employer]LUE HMO / Product Type: HMO / Care Gap Reviewed:: Follow-up appointment Reminder: Reminder note to check Health Maintenance for items below Health Maintenance items due: DEPRESSION ASSESSMENT Never done Navigation Signature: Tg Mckeon MA November 12, 2022 9:10 AM Tg Mckeon MA 11/14/2022 8:07 AM Signed POPULATION HEALTH NAVIGATION OUTREACH Action/November 14, 2022 8:07 AM Second attempt to reach patient unsuccessful. Left second message for him to return call for scheduling assistance, thank you Patient Identified by Name and : NO Outreach Outcome/Action Unable to reach patient: Left message Did you use a PCP flex slot to schedule this appointment? N/A Tg Mckeon MA November 14, 2022 8:07 AM Allergies As of Date: 11/09/2022 Noted Allergy Reaction PREDNISONE 02/27/2011 9 - Itching Date Reviewed: 11/01/2022 Reviewed by: Yola Moreno MA - Fully Assessed Reason for Visit: community monitoring [Other] Cmt: CDM telephonic Prescriptions as of 11/14/2022 - ibuprofen (MOTRIN) 800 mg tablet Take 800 mg by mouth once daily. - gabapentin (NEURONTIN) 300 mg capsule Take 2 capsules by mouth twice daily for 180 days. - apixaban (ELIQUIS) 5 mg tab(s) Take 1 tablet by mouth twice daily. - lisinopril (ZESTRIL, PRINIVIL) 40 mg tablet Take 1 tablet by mouth once daily. - levothyroxine (SYNTHROID) 137 mcg tablet Take 1 tablet by mouth once daily. Take on empty stomach - atorvastatin (LIPITOR) 80 mg tablet Take 1 tablet by mouth daily at bedtime. For cholesterol. - albuterol HFA (VENTOLIN HFA) 90 mcg/actuation inhaler Inhale 2 Puffs as instructed every 4 hours as needed. - hydroCHLOROthiazide (HYDRODIURIL, ESIDRIX) 12.5 mg capsule Take 1 capsule by mouth once daily. - tiotropium bromide (SPIRIVA RESPIMAT) 2.5 mcg/actuation inhaler Inhale 2 Puffs as instructed once daily. - nitroglycerin sublingual (NITROQUICK) 0.4 mg SL tablet Dissolve 1 tablet under the tongue as needed. FOR CHEST PAIN. IF NO RELIEF CALL 911 - fluocinonide (LIDEX) 0.05 % ointment Apply to affected area on leg twice daily as needed. Cycle 2 weeks on, 1 week off. Not for face, armpits, or groin - ketoconazole (NIZORAL) 2 % shampoo Wash face and scalp daily as needed - hydrocortisone 2.5 % cream Apply to scaly patches on face two times daily as needed for flares. Use 2 weeks on 1 week off - ketoconazole (NIZORAL) 2 % cream Apply to affected and groin two times daily for maintenance - albuterol (PROVENTIL) 2.5 mg /3 mL (0.083 %) nebulizer solution Use 3 mL via nebulizer every 4 hours as needed for wheezing/shortness of breath. Use over 5-15minutes. - Nebulizer NEBULIZER FOR HOME USE. Facility-Administered Medications as of 11/14/2022 - perflutren lipid microspheres 1.3 mL in NaCl (PF) 0.9 (more content not included)... [facility] 11-09-2022 Note HNO ID: [id number] Author: Vic Martinez RN Service: ? Author Type: Registered Nurse Type: Progress Notes Filed: 11/09/2022 10:25 AM Note Text: CDM Telephonic Outreach Provider Action/FYI Care Coordination next call- lvm x 7 with ph# Last CDM outreach contact: 08/16/22- couple days prior had abd pain . Declined virtualist or appt. ED 09/27 AND10/04 outside [facility] Baseline: 05/29/22 ADL, FALL, GOAL due: 03/06/23 Contacted for: Routine Telephonic Outreach Contact made with patient: No, left message. Vic Martinez RN November 09, 2022 10:25 AM [facility] 11-05-2022 History of Present illness Narrative CD Telephonic Outreach Provider Action/FYI 2nd attempt Contacted for: Routine Telephonic Outreach Contact made with patient: No, left message. Corie Christensen RN January 09, 2023 11:00 AM documented in this encounter [facility] 11-05-2022 History of Present illness Narrative CD Telephonic Outreach Provider Action/FYI 2nd attempt Last [facility] CDM contact 12/06/22 D Tarah ANDRADE Recent CHASITY and Speech Therapy for modified barium swallow evaluation 02/08/23 EGD scheduled Next CDM outreach after FEB procedures and appointment(s). Contacted for: Routine Telephonic Outreach Contact made with patient: No, left message. Corie Christensen RN February 05, 2023 1:54 PM [facility] Telephonic Outreach Provider Action/FYI Contacted for: Routine Telephonic Outreach Contact made with patient: No, left message. Corie Christensen RN February 04, 2023 2:46 PM documented in this encounter [facility] 11-05-2022 History of Present illness Narrative [facility] Telephonic Outreach Provider Action/FYI 2nd attempt At next CD Telephonic Outreach follow up on: Last [facility] CDM contact 12/06/22 Theron Martinez RN Needs Goals, ADLs and Falls assessments updated. Next CDM outreach after April [facility] appointment(s). Contacted for: Routine Telephonic Outreach Contact made with patient: No, left message. Corie Christensen RN March 22, 2023 10:27 AM CD Telephonic Outreach Provider Action/FYI Contacted for: Routine Telephonic Outreach Contact made with patient: No, left message. Corie Christensen RN March 21, 2023 2:39 PM documented in this encounter [facility] 11-05-2022 History of Present illness Narrative CDM ESCALATION Provider Action / FYI: Paged virtualist Patient / caregiver reports congestion, coughing, green mucus x 1 week. Using more frequent nebulizer treatment(s) and OTC Dayquil. Instructed patient / caregiver to take all incoming calls until they speak with the provider as the call may not clearly indicate [facility] on caller ID. Madiha Christensen RNjail keeperMedia Assistant May 01, 2023 9:45 AM Message received via: Virtualist Escalation Follow-Up Patient escalated to Virtualist on: 04/30/23 Reason for escalation: Patient / caregiver reports congestion, coughing, green mucus x 1 week. Using more frequent nebulizer treatment(s) and OTC Dayquil. Virtualist intervention: unable to reach patient Contact made with patient: Yes Patient identified by name and date of . Discussed care with patient Based on service order dispatcher chief the following disposition is advised: Sent to virtualist. Corie Christensen RN May 01, 2023 9:45 AM documented in this encounter [facility] 11-05-2022 History of Present illness Narrative CDM ESCALATION Provider Action / FYI: Instructed on doxycycline and medrol fred . Corie Christensen RN May 02, 2023 Message received via: Virtualist Escalation Follow-Up Patient escalated to Virtualist on: Reason for escalation: Patient / caregiver reports congestion, coughing, green mucus x 1 week. Using more frequent nebulizer treatment(s) and OTC Dayquil Virtualist intervention: prescription for Doxycycline and Medrol dose fred Rx Contact made with patient: Yes Patient identified by name and date of . Discussed care with patient Based on service order dispatcher chief the following disposition is advised: No symptoms or symptoms present, not severe. Routed to: No Action Needed VALENTINE Education Provided this Outreach: No Corie Christensen RN May 02, 2023 10:20 AM documented in this encounter [facility] 11-01-2022 Note HNO ID: [id number] Author: Ulises Fontaine, DO Service: ? Author Type: Physician Type: Progress Notes Filed: 11/01/2022 4:20 PM Note Text: Rheumatology CONSULTATION Date of Service: 11/01/2022 Patient: Jennie Mccarthy Medical Record: [id number] Primary Care Physician: Levon Corral MD Last Rheumatology visit: None at [facility] Referring Provider: Tg Albrecht (Jessica) [address] [facility] [address] Jennie Mccarthy is here today at request of Dr. Albrceht specifically for consultation of my opinion in regards to the chief complaint listed below. Correspondence will be shared today via the [employer] electronic health record or through regular mail, where applicable. History of Present Illness Jennie Mccarthy is a 62 year old White male who presents on 11/01/2022 for an in-person visit for evaluation of No chief complaint on file.. Jennie is both RF - 9 (11/07/2021) and CCP - 13.5 (11/07/2021) negative. His most recent BRISSA was positive (11/07/2021). HISTORY OF PRESENT ILLNESS 62yo M with PMH of VANIA, AF/flutter, CAD, GERD, HTN, hypothyroidism, pulmonary embolism, AAA, bullous emphysema, ILD and mild obstructive lung disease Here for evaluation of ILD in the setting of positive BRISSA 1:160 and DsDNA ab of 940 Patient follows with Pulmonary Medicine regarding his COPD, currently on albuterol and Spririva with stable dyspnea. During workup for cancer screening with subsequent follow up CT scans, found to have chronic ILD in UIP pattern (last 10/09/2022). Due to this, autoimmune serolgies were sent that resulted positive for BRISSA and DsDNA with all other serologies inclduing myositis and scleroderma, being negative. Was referred to rheumatology to assess if ILD is related to underlying autoimmune process. Patient states that he has been dealing with difficulty swallowing solid and liquids for 2 years with esophagram in 12/2021 showing small sliding hiatal hernia. Reports suffering from acid reflux, takes an OTC antacid. Reports hip pain worse at the end of the end. Hip xr in 09/21/22 showing generative changes. No other joint pain. Patient has no history of fevers, chills, dry eyes, dry mouth, pleuritic chest pain, oral/nasal ulcers, dysphagia, muscle weakness, abdominal pain, urinary symptoms or changes, alopecia, psoriasis, malar rash, nasal or oral ulcers, Raynaud's phenomenon, eye inflammation, or photosensitivity. No history of IBS, bleeding, or clotting abnormality. Denies allergies. No history of AI diease in family. Smokes 1/2-3/4 pack per day. Worked for an [employer] for 8 years. Quit 10 years ago. Has worked in an [employer]. Colonoscopy 2015: normal. Repeat in 10 years. INTERVAL HISTORY Today feels well. Baseline shortness of breath present. Stable No other complaints. Pain Evaluation Pain Evaluation 07/31/2022 07/31/2022 07/31/2022 07/31/2022 07/31/2022 Pain Score 3 3 - - 3 Location Back-Lower Back-Lower - - Back Location Comment - - - - - Description Sharp Sharp - - Burning Duration (#) - - - - - Duration (Timeframe) - - - - - Frequency - - - - - Intervention Medication Relaxation;Reposition Medication Medication Reposition;Relaxation Patient-Entered Data PROMIS Assessments PROMIS Global Health - (T-Scores - the mean of general population = 50. Five points is a clinically meaningful difference.) 09/01/2018 Physical T-Score 39.8 Mental T-Score 43.5 No flowsheet data found.No flowsheet data found.No flowsheet data found. RAPID 3 Elaine Activities of Daily Living No Data Dress self? - Get in and out of bed? - Walk outdoors? - Wash and dry body? - Get in and out of car? - RAPID 3 Disease Activity Weighed Score Levels: 0 - 1: Near Remission 1.3 - 2.0: Low Severity 2.3 - 4.0: Moderate Severity 4.3 - 10.0: High Severity No flowsheet data found. Review of Systems Review of Systems CONSTITUTION: Negative for: Fever and Recent weight change HEENT: Negative for: Mouth sores and Dry mouth RESPIRATORY: Negative for: Cough and Shortness of breath GASTROINTESTINAL: Negative for: Diarrhea, Heartburn and Abdominal pain MUSCULOSKELETAL: Positive for: Arthralgias Negative for: Myalgias, Muscle weakness, Joint swelling and Morning Joint Stiffness NEUROLOGICAL: Negative for: Headaches and Numbness SKIN: Negative for: Rash, Sun Sensitive Rash, Skin changes, Hair loss and Nail changes EYES: Negative for: Eye dryness and visual disturbance CARDIOVASCULAR: Negative for: Chest pain and Leg swelling GENITOURINARY: Negative for: Dysuria and Hematuria HEMATOLOGIC/LYMPHATIC: Negative for: Swollen glandsAll other reviewed and negative other than HPI. Past Medical History PAST MEDICAL HISTORY Diagnosis Date AAA (abdominal aortic aneurysm) (HCC) 03/02/2009 Atrial fibrillation (HCC) Atrial flutter (HCC) 08/20/2011 Chronic cholecystitis Coronary artery disease DDD (degenerative disc disease), lumba (more content not included)... [facility] 10-26-2022 Note HNO ID: [id number] Author: Vic Martinez RN Service: ? Author Type: Registered Nurse Type: Progress Notes Filed: 10/26/2022 10:16 AM Note Text: CDM Telephonic Outreach Provider Action/FYI Care Coordination next call- lvm x 6 with ph# Last CDM outreach contact: 08/16/22- couple days prior had abd pain . Declined virtualist or appt. ED 09/27 AND10/04 outside [facility] Baseline: 05/29/22 ADL, FALL, GOAL due: 03/06/23 Contacted for: Routine Telephonic Outreach Contact made with patient: No, left message. Vic Martinez RN October 26, 2022 10:16 AM [facility] 10-25-2022 Note HNO ID: [id number] Author: Vic Martinez RN Service: ? Author Type: Registered Nurse Type: Progress Notes Filed: 10/25/2022 4:25 PM Note Text: CDM Telephonic Outreach Provider Action/FYI Care Coordination next call- lvm x 5 with ph# Last CDM outreach contact: 08/16/22- couple days prior had abd pain . Declined virtualist or appt. ED 09/27 AND10/04 outside [facility] Baseline: 05/29/22 ADL, FALL, GOAL due: 03/06/23 Contacted for: Routine Telephonic Outreach Contact made with patient: No, left message. Vic Martinez RN October 25, 2022 4:25 PM [facility] 10-25-2022 History of Present illness Narrative CDM Telephonic Outreach Provider Action/FYI Care Coordination next call- lvm x 5 with ph# Last CDM outreach contact: 08/16/22- couple days prior had abd pain . Declined virtualist or appt. ED 09/27 &10/04 outside [facility] Baseline: 05/29/22 ADL, FALL, GOAL due: 03/06/23 Contacted for: Routine Telephonic Outreach Contact made with patient: No, left message. Vic Martinez RN October 25, 2022 4:25 PM documented in this encounter [facility] 10-25-2022 Note Patient Outreach ([facility]) JENNIE MCCARTHY ([id number]) 1960 M Date Time Provider Department 10/25/22 VIC MARTINEZ During your visit today, we recorded the following information about you: Vic Martinez RN 10/25/2022 4:25 PM Signed CD Telephonic Outreach Provider Action/FYI Care Coordination next call- lvm x 5 with ph# Last CDM outreach contact: 08/16/22- couple days prior had abd pain . Declined virtualist or appt. ED 09/27 AND10/04 outside [facility] Baseline: 05/29/22 ADL, FALL, GOAL due: 03/06/23 Contacted for: Routine Telephonic Outreach Contact made with patient: No, left message. Vic Martinez RN October 25, 2022 4:25 PM Vic Martinez RN 10/26/2022 10:16 AM Signed CDM Telephonic Outreach Provider Action/FYI Care Coordination next call- lvm x 6 with ph# Last CDM outreach contact: 08/16/22- couple days prior had abd pain . Declined virtualist or appt. ED 09/27 AND10/04 outside [facility] Baseline: 05/29/22 ADL, FALL, GOAL due: 03/06/23 Contacted for: Routine Telephonic Outreach Contact made with patient: No, left message. Vic Martinez RN October 26, 2022 10:16 AM Allergies As of Date: 10/25/2022 Noted Allergy Reaction PREDNISONE 02/27/2011 9 - Itching Date Reviewed: 10/12/2022 Reviewed by: Tg Albrecht MD - Fully Assessed Reason for Visit: community monitoring [Other] Cmt: CDM telephonic Prescriptions as of 10/26/2022 - ibuprofen (MOTRIN) 800 mg tablet Take 800 mg by mouth once daily. - gabapentin (NEURONTIN) 300 mg capsule Take 2 capsules by mouth twice daily for 180 days. - apixaban (ELIQUIS) 5 mg tab(s) Take 1 tablet by mouth twice daily. - lisinopril (ZESTRIL, PRINIVIL) 40 mg tablet Take 1 tablet by mouth once daily. - levothyroxine (SYNTHROID) 137 mcg tablet Take 1 tablet by mouth once daily. Take on empty stomach - atorvastatin (LIPITOR) 80 mg tablet Take 1 tablet by mouth daily at bedtime. For cholesterol. - albuterol HFA (VENTOLIN HFA) 90 mcg/actuation inhaler Inhale 2 Puffs as instructed every 4 hours as needed. - hydroCHLOROthiazide (HYDRODIURIL, ESIDRIX) 12.5 mg capsule Take 1 capsule by mouth once daily. - tiotropium bromide (SPIRIVA RESPIMAT) 2.5 mcg/actuation inhaler Inhale 2 Puffs as instructed once daily. - nitroglycerin sublingual (NITROQUICK) 0.4 mg SL tablet Dissolve 1 tablet under the tongue as needed. FOR CHEST PAIN. IF NO RELIEF CALL 911 - fluocinonide (LIDEX) 0.05 % ointment Apply to affected area on leg twice daily as needed. Cycle 2 weeks on, 1 week off. Not for face, armpits, or groin - ketoconazole (NIZORAL) 2 % shampoo Wash face and scalp daily as needed - hydrocortisone 2.5 % cream Apply to scaly patches on face two times daily as needed for flares. Use 2 weeks on 1 week off - ketoconazole (NIZORAL) 2 % cream Apply to affected and groin two times daily for maintenance - albuterol (PROVENTIL) 2.5 mg /3 mL (0.083 %) nebulizer solution Use 3 mL via nebulizer every 4 hours as needed for wheezing/shortness of breath. Use over 5-15minutes. - Nebulizer NEBULIZER FOR HOME USE. Facility-Administered Medications as of 10/26/2022 - perflutren lipid microspheres 1.3 mL in NaCl (PF) 0.9% 10 mL injection (DEFINITY) - sodium chloride 0.9 % (flush) 10 mL (BD POSIFLUSH) Problem List As Of Date 10/25/2022 Noted Resolved Esophageal reflux [K21.9] Internal hemorrhoids without mention of complic*10/24/2006 01/02/2017 Tobacco use disorder [F17.200] 10/24/2006 09/04/2011 COPD with exacerbation (HCC) [J44.1] 10/24/2006 Hypothyroidism [E03.9] 11/05/2006 GYNECOMASTIA [N62] 11/08/2006 11/04/2008 Unspecified sleep apnea [G47.30] 04/03/2007 06/09/2013 Lung bullae (HCC) [J43.9] 05/28/2007 SCREENING FOR CONDITION NOS [Z13.9] 11/21/2007 11/04/2008 Obesity, unspecified [E66.9] 11/04/2008 06/08/2013 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/12/2013 Lumbago [M54.50] 03/08/2009 Patient Noncompliance [Z91.199] 02/03/2010 Erectile dysfunction [N52.9] 02/27/2011 Pulmonary embolism [I26.99] 05/19/2011 01/06/2013 Paroxysmal atrial flutter (HCC) [I48.92] 08/20/2011 Atrial fibrillation (HCC) [I48.91] 06/03/2012 06/18/2019 Cervicalgia [M54.2] 01/15/2013 04/13/2013 Headache [R51] 01/15/2013 04/13/2013 SUMMARY [V999.95] 06/08/2013 02/03/2014 History of pulmonary embolism [Z86.711] 06/08/2013 01/02/2017 History of smoking [Z87.891] 06/08/2013 06/09/2013 Hyperlipidemia [E78.5] 06/08/2013 Atelectasis [J98.11] 06/12/2013 02/03/2014 Hypertension [I10] 06/12/2013 Hypovolemia [E86.1] 06/12/2013 06/15/2013 VANIA (obstructive sleep apnea) AHI 71 [G47.33] 12/30/2013 Obesity [E66.9] 12/30/2013 05/11/2019 Nasal congestion [R09.81] 12/30/2013 08/27/2016 Visual impairment in both eyes [H54.3] 12/30/2013 08/27/2016 Physical deconditioning, multifactorial dyspnea*02/03/2014 08/27/2016 Lumbar spondylosis [M47.816] 02/05/201412/07 (more content not included)... [facility] 10-12-2022 Note HNO ID: [id number] Author: Tg Albrecht MD Service: ? Author Type: Physician Type: Progress Notes Filed: 10/12/2022 5:22 PM Note Text: . [facility] [place] Note Patient name: Jennie Mccarthy PCP: Levon Corral MD CC: Follow-up COPD/ILD HPI: Jennie Mccarthy 62 year old obese male current smoker with PMH significant for VANIA, AF/flutter, CAD, GERD, HTN, hypothyroidism, pulmonary embolism, AAA, bullous emphysema, ILD and mild obstructive lung disease who presents for follow-up exam. Work-up for his ILD included autoimmune serologies. Autoimmune serologies positive BRISSA and dsDNA but negative for other lupus specific antibodies. He does have some joint pain and skin changes. Recommended referral to rheumatology (did not happen). Today he states he is about the same. He continues to smoke and has no true desire to quit smoking. He has chronic cough with some sputum production, stable dyspnea on exertion, no wheezing or chest pain. Denies any recent upper respiratory infection or need for hospitalization. He is having bilateral hip pain and knee pain. He states that he will soon require a knee replacement. DATA: Labs: Component Ref Range AND Units 11 mo ago DNA Antibody <30 IU/mL 943.37 High Imaging / Diagnostic Studies: DATE OF EXAM: Oct 09 2022 3:29PM [facility] 0541 - CT CHEST WO IVCON / PROCEDURE REASON: Interstitial lung disease CLINICAL HISTORY: Interstitial lung disease. Comparison: CT chest on 11/03/2021 RESULT: Limitations: None. Lines, tubes, and devices: None. Lung parenchyma and airways: The central airways are patent. There is a very large bulla in the right upper lung measuring 13 x 10 cm. There are reticular opacities in the bilateral lungs predominantly involving the peripheral areas with honeycombing. Traction bronchiectasis is identified. No significant architectural distortion. No solid mass or consolidative opacities. Pleural space: No pleural effusions or pneumothorax. Lower neck, lymph nodes, and mediastinum: The imaged thyroid gland is normal. No lymphadenopathy in the supraclavicular, axillary, mediastinal, or hilar regions. Heart, pericardium, and thoracic vessels: Stable cardiac chambers, thoracic aorta and central pulmonary arteries. There is mild focal bulging along the left aspect of the aortic arch, unchanged. No pericardial effusion/thickening. Bones and soft tissues: No destructive bone lesion. Extensive osteophyte formation seen in the spine. Chest wall soft tissue remains unremarkable. Upper abdomen: Limited study through the upper abdomen demonstrates no interval changes. IMPRESSION: Findings are suggestive of interstitial lung disease. The pattern and distribution are compatible with UIP. Very large bulla in the right upper lobe. I personally reviewed the images as well as with the patient which shows large bullous lesion with emphysema and interstitial lung disease that has not progressed since his last image a year ago. PAST MEDICAL HISTORY Diagnosis Date AAA (abdominal aortic aneurysm) (HCC) 03/02/2009 Atrial fibrillation (HCC) Atrial flutter (HCC) 08/20/2011 Chronic cholecystitis Coronary artery disease DDD (degenerative disc disease), lumbar 02/05/2014 Emphysematous bleb (HCC) 05/28/2007 Right upper lung. Erectile dysfunction 02/27/2011 Esophageal reflux Gastroesophageal reflux Fatty liver GYNECOMASTIA 11/08/2006 Hemorrhage of rectum and anus 12/25/2009 bleeding hemorrhoids Hiatal hernia Hypertension 06/12/2013 Obesity, unspecified 11/04/2008 Obstructive sleep apnea CPAP Other and unspecified hyperlipidemia 11/05/2006 Other emphysema (HCC) Emphysema Pulmonary embolism (HCC) 05/19/2011 Substance abuse (HCC) Tobacco use disorder 10/24/2006 ex-smoker Unspecified constipation Constipation Unspecified hypothyroidism 11/05/2006 ALLERGIES Allergen Reactions Prednisone Itching apixaban (ELIQUIS) 5 mg tab(s)Take 1 tablet by mouth twice daily.Disp: 180 tabletRfl: 3 lisinopril (ZESTRIL, PRINIVIL) 40 mg tabletTake 1 tablet by mouth once daily.Disp: 90 tabletRfl: 3 levothyroxine (SYNTHROID) 137 mcg tabletTake 1 tablet by mouth once daily. Take on empty stomachDisp: 90 tabletRfl: 3 atorvastatin (LIPITOR) 80 mg tabletTake 1 tablet by mouth daily at bedtime. For cholesterol.Disp: 90 tabletRfl: 3 tiotropium bromide (SPIRIVA RESPIMAT) 2.5 mcg/actuation inhalerInhale 2 Puffs as instructed once daily.Disp: 1 InhalerRfl: 5 ibuprofen (MOTRIN) 800 mg tabletTake 800 mg by mouth once daily.Disp: Rfl: gabapentin (NEURONTIN) 300 mg capsuleTake 2 capsules by mouth twice daily for 180 days.Disp: 120 capsuleRfl: 5 albuterol HFA (VENTOLIN HFA) 90 mcg/actuation inhalerInhale 2 Puffs as instructed every 4 hours as needed.Disp: 18 gRfl: 3 hydroCHLOROthiazide (HYDRODIURIL, ESIDRIX) 12.5 mg capsuleTake 1 capsule by mouth once daily.Disp: 9 (more content not included)... [facility] 10-12-2022 History of Present illness Narrative Images from the original note were not included. . Res[facility] [place] Note Patient name: Jennie Mccarthy PCP: Levon Corral MD CC: Follow-up COPD/ILD HPI: Jennie Mccarthy 62 year old obese male current smoker with PMH significant for VANIA, AF/flutter, CAD, GERD, HTN, hypothyroidism, pulmonary embolism, AAA, bullous emphysema, ILD and mild obstructive lung disease who presents for follow-up exam. Work-up for his ILD included autoimmune serologies. Autoimmune serologies positive BRISSA and dsDNA but negative for other lupus specific antibodies. He does have some joint pain and skin changes. Recommended referral to rheumatology (did not happen). Today he states he is about the same. He continues to smoke and has no true desire to quit smoking. He has chronic cough with some sputum production, stable dyspnea on exertion, no wheezing or chest pain. Denies any recent upper respiratory infection or need for hospitalization. He is having bilateral hip pain and knee pain. He states that he will soon require a knee replacement. DATA: Labs: Component Ref Range & Units 11 mo ago DNA Antibody <30 IU/mL 943.37 High Imaging / Diagnostic Studies: DATE OF EXAM: Oct 09 2022 3:29PM [facility] 0541 - CT CHEST WO IVCON / PROCEDURE REASON: Interstitial lung disease CLINICAL HISTORY: Interstitial lung disease. Comparison: CT chest on 11/03/2021 RESULT: Limitations: None. Lines, tubes, and devices: None. Lung parenchyma and airways: The central airways are patent. There is a very large bulla in the right upper lung measuring 13 x 10 cm. There are reticular opacities in the bilateral lungs predominantly involving the peripheral areas with honeycombing. Traction bronchiectasis is identified. No significant architectural distortion. No solid mass or consolidative opacities. Pleural space: No pleural effusions or pneumothorax. Lower neck, lymph nodes, and mediastinum: The imaged thyroid gland is normal. No lymphadenopathy in the supraclavicular, axillary, mediastinal, or hilar regions. Heart, pericardium, and thoracic vessels: Stable cardiac chambers, thoracic aorta and central pulmonary arteries. There is mild focal bulging along the left aspect of the aortic arch, unchanged. No pericardial effusion/thickening. Bones and soft tissues: No destructive bone lesion. Extensive osteophyte formation seen in the spine. Chest wall soft tissue remains unremarkable. Upper abdomen: Limited study through the upper abdomen demonstrates no interval changes. IMPRESSION: Findings are suggestive of interstitial lung disease. The pattern and distribution are compatible with UIP. Very large bulla in the right upper lobe. I personally reviewed the images as well as with the patient which shows large bullous lesion with emphysema and interstitial lung disease that has not progressed since his last image a year ago. PAST MEDICAL HISTORY Diagnosis Date AAA (abdominal aortic aneurysm) (HCC) 03/02/2009 Atrial fibrillation (HCC) Atrial flutter (HCC) 08/20/2011 Chronic cholecystitis Coronary artery disease DDD (degenerative disc disease), lumbar 02/05/2014 Emphysematous bleb (HCC) 05/28/2007 Right upper lung. Erectile dysfunction 02/27/2011 Esophageal reflux Gastroesophageal reflux Fatty liver GYNECOMASTIA 11/08/2006 Hemorrhage of rectum and anus 12/25/2009 bleeding hemorrhoids Hiatal hernia Hypertension 06/12/2013 Obesity, unspecified 11/04/2008 Obstructive sleep apnea CPAP Other and unspecified hyperlipidemia 11/05/2006 Other emphysema (HCC) Emphysema Pulmonary embolism (HCC) 05/19/2011 Substance abuse (HCC) Tobacco use disorder 10/24/2006 ex-smoker Unspecified constipation Constipation Unspecified hypothyroidism 11/05/2006 ALLERGIES Allergen Reactions Prednisone Itching apixaban (ELIQUIS) 5 mg tab(s)^Take 1 tablet by mouth twice daily.^Disp: 180 tablet^Rfl: 3 lisinopril (ZESTRIL, PRINIVIL) 40 mg tablet^Take 1 tablet by mouth once daily.^Disp: 90 tablet^Rfl: 3 levothyroxine (SYNTHROID) 137 mcg tablet^Take 1 tablet by mouth once daily. Take on empty stomach^Disp: 90 tablet^Rfl: 3 atorvastatin (LIPITOR) 80 mg tablet^Take 1 tablet by mouth daily at bedtime. For cholesterol.^Disp: 90 tablet^Rfl: 3 tiotropium bromide (SPIRIVA RESPIMAT) 2.5 mcg/actuation inhaler^Inhale 2 Puffs as instructed once daily.^Disp: 1 Inhaler^Rfl: 5 ibuprofen (MOTRIN) 800 mg tablet^Take 800 mg by mouth once daily.^Disp: ^Rfl: gabapentin (NEURONTIN) 300 mg capsule^Take 2 capsules by mouth twice daily for 180 days.^Disp: 120 capsule^Rfl: 5 albuterol HFA (VENTOLIN HFA) 90 mcg/actuation inhaler^Inhale 2 Puffs as instructed every 4 hours as needed.^Disp: 18 g^Rfl: 3 hydroCHLOROthiazide (HYDRODIURIL, ESIDRIX) 12.5 mg capsule^Take 1 capsule by mouth once daily.^Disp: 90 capsule^Rfl: 3 nitroglycerin sublingual (NITROQUICK) 0.4 mg SL tablet^Dissolve 1 tablet under the tongue as needed. FOR CHEST PAIN. IF NO RELIEF CALL 911^Disp: 25 tablet^Rfl: 1 fluocinonide (LIDEX) 0.05 % ointment^Apply to affected area on leg twice daily as needed. Cycle 2 weeks on, 1 week off. Not for face, armpits, or groin^Disp: 60 g^Rfl: 0 ketoconazole (NIZORAL) 2 % shampoo^Wash face and scalp daily as needed^Disp: 120 mL^Rfl: 5 hydrocortisone 2.5 % cream^Apply to scaly patches on face two times daily as needed for flares. Use 2 weeks on 1 week off^Disp: 30 g^Rfl: 2 ketoconazole (NIZORAL) 2 % cream^Apply to affected and groin two times daily for maintenance^Disp: 60 g^Rfl: 5 albuterol (PROVENTIL) 2.5 mg /3 mL (0.083 %) nebulizer solution^Use 3 mL via nebulizer every 4 hours as needed for wheezing/shortness of breath. Use over 5-15minutes.^Disp: 3 mL^Rfl: 0 Nebulizer^NEBULIZER FOR HOME USE.^Disp: 1 Kit^Rfl: 0 Social History Tobacco Use Smoking status: Every Day Packs/day: 0.50 Years: 46.00 Pack years: 23.00 Types: Cigarettes Start date: 07/08/1973 Smokeless tobacco: Never Tobacco comments: Currently 0.5ppd 10/12/22 Vaping Use Vaping Use: Never used Substance Use Topics Alcohol use: No Drug use: Yes Types: Marijuana Comment: Off and on. FAMILY HISTORY Problem Relation Age of Onset other (Pneumonia) Mother age 72 other (aneursm repair) Mother Prostate Cancer Father CArdiomegaly ( age 72) Aneurysm Brother Lung Cancer Brother Lung Cancer ( age 60's) Heart Brother HI x 2 other (aneurysm repair) Brother PAST SURGICAL HISTORY Procedure Laterality Date COLONOSCOPY 2005 COLONOSCOPY FLX DX W/COLLJ SPEC WHEN PFRMD 12/26/09 DIR RPR ANEURYSM ABDOMINAL AORTA 06/12/2013 Abd Aortic Aneurysm Repair, Endovascular ENDOVAS REPAIR ILIAC ANEURYSM Right 01/15/2020 R hypogastric coiling, R common femoral access FOCAL LASER RETINAL TUMOR OS (LEFT EYE) Left 10/2019 Retinal Tear HEMORRHOIDECTOMY INTERNAL RUBBER BAND LIGATIONS 11/2004 LAPS SURG CHOLECYSTECTOMY W/CHOLANGIOGRAPHY 07/07/07 TONSILLECTOMY PRIMARY/SECONDARY <AGE 12 1972 Tonsillectomy PMH, Social history, family history and surgical history reviewed and updated in EMR REVIEW OF SYSTEMS: CONSTITUTIONAL: No fevers, chills, nightsweats, unintended weight loss HEENT: Denies nasal congestion/sinus symptoms, problematic allergy problems. EYES: No diplopia or blurry vision. CARDIOVASCULAR: No chest pain, palpitations, orthopnea, PND, edema. PULM: See HPI GI: Dysphagia but no choking. No GERD NEURO: No new balance problems, peripheral weakness/paresthesias or numbness of concern. MUSC-SKEL: Bilateral hip and knee pain PSY: No concerns regarding depression, anxiety INTEGUMENTARY: Dry skin and intermittent erythema PHYSICAL EXAMINATION: BP 168/88 Pulse 62 Resp 17 Wt 216 lb (98.0kg) SpO2 95% General Appearance: Obese male, NAD Skin: Skin color, turgor normal, no suspicious rashes or lesions. Dry flaking skin with patchy areas of erythema Head: Normocephalic, no masses, lesions, tenderness or abnormalities. Rosacea Eyes: Sclera, conjunctiva normal Oropharynx: Upper plate, no oral lesions Neck: No JVD, no masses, no adenopathy Lungs: Not labored, normal to percussion, no wheezes or crackles Heart: Regular rate and rhythm, no murmurs or gallops Extremities: No edema. Mild clubbing. No joint deformities or effusions Assessment/Plan: 1. ILD -Most likely UIP but in light of abnormal autoantibodies, cannot exclude autoimmune related lung disease -No progression by chest CT -Needs updated pulmonary function testing -Hold on antifibrotic therapy -Repeat consult to rheumatology 2. Large bulla of lung -Mild COPD -Smoking cessation recommended -Continue albuterol as needed 3. Cigarette smoker -Current smoker with sequelae of COPD -Smoking cessation strongly encouraged Tg Albrecht MD [facility] [place] documented in this encounter [facility] 10-12-2022 Note Patient Outreach ([facility] [facility]) JENNIE MCCARTHY ([id number]) 1960 M Date Time Provider Department 10/12/22 VIC MARTINEZ [facility] During your visit today, we recorded the following information about you: Vic Martinez RN 10/12/2022 9:26 AM Signed [facility] TELEPHONIC OUTREACH Provider Action/FYI: lvm x 4 with ph# Last CDM outreach contact 08/16/22- couple days prior had abd pain . Declined virtualist or appt ED 09/27 [facility]10/04 outside [facility] Baseline: 05/09/22 ADL, FALL, GOAL due: 03/06/23 Contact made with patient: No - Left message Hello my name is Vic Martinez RN your Auto Hauler from the [facility] I am calling today for your bi-weekly check in. I am sorry I missed your call. I will reach out to you again tomorrow. (if the third call I will reach out to you again next week) Enter next patient outreach date for the following day using the Track Pt Outreach. End outreach. Allergies As of Date: 10/12/2022 Noted Allergy Reaction PREDNISONE 02/27/2011 9 - Itching Date Reviewed: 07/31/2022 Reviewed by: Cristin Beltrán RN - Fully Assessed Reason for Visit: community monitoring [Other] Cmt: [facility] telephonic Prescriptions as of 10/12/2022 - ibuprofen (MOTRIN) 800 mg tablet Take 800 mg by mouth once daily. - gabapentin (NEURONTIN) 300 mg capsule Take 2 capsules by mouth twice daily for 180 days. - apixaban (ELIQUIS) 5 mg tab(s) Take 1 tablet by mouth twice daily. - lisinopril (ZESTRIL, PRINIVIL) 40 mg tablet Take 1 tablet by mouth once daily. - levothyroxine (SYNTHROID) 137 mcg tablet Take 1 tablet by mouth once daily. Take on empty stomach - atorvastatin (LIPITOR) 80 mg tablet Take 1 tablet by mouth daily at bedtime. For cholesterol. - albuterol HFA (VENTOLIN HFA) 90 mcg/actuation inhaler Inhale 2 Puffs as instructed every 4 hours as needed. - hydroCHLOROthiazide (HYDRODIURIL, ESIDRIX) 12.5 mg capsule Take 1 capsule by mouth once daily. - tiotropium bromide (SPIRIVA RESPIMAT) 2.5 mcg/actuation inhaler Inhale 2 Puffs as instructed once daily. - nitroglycerin sublingual (NITROQUICK) 0.4 mg SL tablet Dissolve 1 tablet under the tongue as needed. FOR CHEST PAIN. IF NO RELIEF CALL 911 - fluocinonide (LIDEX) 0.05 % ointment Apply to affected area on leg twice daily as needed. Cycle 2 weeks on, 1 week off. Not for face, armpits, or groin - ketoconazole (NIZORAL) 2 % shampoo Wash face and scalp daily as needed - hydrocortisone 2.5 % cream Apply to scaly patches on face two times daily as needed for flares. Use 2 weeks on 1 week off - ketoconazole (NIZORAL) 2 % cream Apply to affected and groin two times daily for maintenance - albuterol (PROVENTIL) 2.5 mg /3 mL (0.083 %) nebulizer solution Use 3 mL via nebulizer every 4 hours as needed for wheezing/shortness of breath. Use over 5-15minutes. - Nebulizer NEBULIZER FOR HOME USE. Facility-Administered Medications as of 10/12/2022 - perflutren lipid microspheres 1.3 mL in NaCl (PF) 0.9% 10 mL injection (DEFINITY) - sodium chloride 0.9 % (flush) 10 mL (BD POSIFLUSH) Problem List As Of Date 10/12/2022 Noted Resolved Esophageal reflux [K21.9] Internal hemorrhoids without mention of complic*10/24/2006 01/02/2017 Tobacco use disorder [F17.200] 10/24/2006 09/04/2011 COPD with exacerbation (HCC) [J44.1] 10/24/2006 Hypothyroidism [E03.9] 11/05/2006 GYNECOMASTIA [N62] 11/08/2006 11/04/2008 Unspecified sleep apnea [G47.30] 04/03/2007 06/09/2013 Lung bullae (HCC) [J43.9] 05/28/2007 SCREENING FOR CONDITION NOS [Z13.9] 11/21/2007 11/04/2008 Obesity, unspecified [E66.9] 11/04/2008 06/08/2013 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/12/2013 Lumbago [M54.50] 03/08/2009 Patient Noncompliance [Z91.199] 02/03/2010 Erectile dysfunction [N52.9] 02/27/2011 Pulmonary embolism [I26.99] 05/19/2011 01/06/2013 Paroxysmal atrial flutter (HCC) [I48.92] 08/20/2011 Atrial fibrillation (HCC) [I48.91] 06/03/2012 06/18/2019 Cervicalgia [M54.2] 01/15/2013 04/13/2013 Headache [R51] 01/15/2013 04/13/2013 SUMMARY [V999.95] 06/08/2013 02/03/2014 History of pulmonary embolism [Z86.711] 06/08/2013 01/02/2017 History of smoking [Z87.891] 06/08/2013 06/09/2013 Hyperlipidemia [E78.5] 06/08/2013 Atelectasis [J98.11] 06/12/2013 02/03/2014 Hypertension [I10] 06/12/2013 Hypovolemia [E86.1] 06/12/2013 06/15/2013 VANIA (obstructive sleep apnea) AHI 71 [G47.33] 12/30/2013 Obesity [E66.9] 12/30/2013 05/11/2019 Nasal congestion [R09.81] 12/30/2013 08/27/2016 Visual impairment in both eyes [H54.3] 12/30/2013 08/27/2016 Physical deconditioning, multifactorial dyspnea*02/03/2014 08/27/2016 Lumbar spondylosis [M47.816] 02/05/2014 12/31/2017 DDD (degenerative disc disease), lumbar [M51.36]02/05/2014 12/31/2017 Sciatica [M54.30] 02/24/2014 Sebaceous cyst [L72.3] 09/03/2016 01/02/2017 Bronchitis [J40] 04/04/2017 Rosacea [L71.9] more content not included)... [facility] 10-12-2022 Note HNO ID: [id number] Author: Vic Martinez RN Service: ? Author Type: Registered Nurse Type: Progress Notes Filed: 10/12/2022 9:17 AM Note Text: . [facility] 10-12-2022 Note HNO ID: [id number] Author: Vic Martinez RN Service: ? Author Type: Registered Nurse Type: Progress Notes Filed: 10/12/2022 9:26 AM Note Text: [facility] TELEPHONIC OUTREACH Provider Action/FYI: lvm x 4 with ph# Last CDM outreach contact 08/16/22- couple days prior had abd pain . Declined virtualist or appt ED 09/27 AND10/04 outside [facility] Baseline: 05/09/22 ADL, FALL, GOAL due: 03/06/23 Contact made with patient: No - Left message Portillo my name is Vic Martinez RN your Auto Hauler from the [facility] I am calling today for your bi-weekly check in. I am sorry I missed your call. I will reach out to you again tomorrow. (if the third call I will reach out to you again next week) Enter next patient outreach date for the following business day using the Track Pt Outreach. End outreach. [facility] 10-12-2022 History of Present illness Narrative . documented in this encounter [facility] 10-12-2022 History of Present illness Narrative [facility] TELEPHONIC OUTREACH Provider Action/FYI: lvm x 4 with ph# Last CDM outreach contact 08/16/22- couple days prior had abd pain . Declined virtualist or appt ED 09/27 &10/04 outside [facility] Baseline: 05/09/22 ADL, FALL, GOAL due: 03/06/23 Contact made with patient: No - Left message Portillo my name is Vic Martinez RN your Auto Hauler from the [facility] I am calling today for your bi-weekly check in. I am sorry I missed your call. I will reach out to you again tomorrow. (if the third call I will reach out to you again next week) Enter next patient outreach date for the following business day using the Track Pt Outreach. End outreach. documented in this encounter [facility] 10-10-2022 Note HNO ID: [id number] Author: Vic Martinez RN Service: ? Author Type: Registered Nurse Type: Progress Notes Filed: 10/10/2022 1:05 PM Note Text: [facility] TELEPHONIC OUTREACH Provider Action/FYI: lvm x 3 with ph# Last CDM outreach contact 08/16/22 Baseline: 05/09/22 ADL, FALL, GOAL due: 03/06/23 Contact made with patient: No - Left message Portillo my name is Vic Martinez RN your Auto Hauler from the [facility] I am calling today for your bi-weekly check in. I am sorry I missed your call. I will reach out to you again tomorrow. (if the third call I will reach out to you again next week) Enter next patient outreach date for the following business day using the Track Pt Outreach. End outreach. [facility] 10-10-2022 Note Patient Outreach (AM [facility]) JENNIE MCCARTHY ([id number]) 1960 Date Time Provider Department 10/10/22 VIC MARTINEZ During your visit today, we recorded the following information about you: Vic Martinez RN 10/10/2022 1:05 PM Signed [facility] TELEPHONIC OUTREACH Provider Action/FYI: lvzulma x 3 with ph# Last CDM outreach contact 08/16/22 Baseline: 05/09/22 ADL, FALL, GOAL due: 03/06/23 Contact made with patient: No - Left message Portillo my name is Vic Martinez RN your Auto Hauler from the [facility] I am calling today for your bi-weekly check in. I am sorry I missed your call. I will reach out to you again tomorrow. (if the third call I will reach out to you again next week) Enter next patient outreach date for the following business day using the Track Pt Outreach. End outreach. Allergies As of Date: 10/10/2022 Noted Allergy Reaction PREDNISONE 02/27/2011 9 - Itching Date Reviewed: 07/31/2022 Reviewed by: Cristin Beltrán RN - Fully Assessed Reason for Visit: community monitoring [Other] Cmt: ANANT telephonic Prescriptions as of 10/10/2022 - ibuprofen (MOTRIN) 800 mg tablet Take 800 mg by mouth once daily. - gabapentin (NEURONTIN) 300 mg capsule Take 2 capsules by mouth twice daily for 180 days. - apixaban (ELIQUIS) 5 mg tab(s) Take 1 tablet by mouth twice daily. - lisinopril (ZESTRIL, PRINIVIL) 40 mg tablet Take 1 tablet by mouth once daily. - levothyroxine (SYNTHROID) 137 mcg tablet Take 1 tablet by mouth once daily. Take on empty stomach - atorvastatin (LIPITOR) 80 mg tablet Take 1 tablet by mouth daily at bedtime. For cholesterol. - albuterol HFA (VENTOLIN HFA) 90 mcg/actuation inhaler Inhale 2 Puffs as instructed every 4 hours as needed. - hydroCHLOROthiazide (HYDRODIURIL, ESIDRIX) 12.5 mg capsule Take 1 capsule by mouth once daily. - tiotropium bromide (SPIRIVA RESPIMAT) 2.5 mcg/actuation inhaler Inhale 2 Puffs as instructed once daily. - nitroglycerin sublingual (NITROQUICK) 0.4 mg SL tablet Dissolve 1 tablet under the tongue as needed. FOR CHEST PAIN. IF NO RELIEF CALL 911 - fluocinonide (LIDEX) 0.05 % ointment Apply to affected area on leg twice daily as needed. Cycle 2 weeks on, 1 week off. Not for face, armpits, or groin - ketoconazole (NIZORAL) 2 % shampoo Wash face and scalp daily as needed - hydrocortisone 2.5 % cream Apply to scaly patches on face two times daily as needed for flares. Use 2 weeks on 1 week off - ketoconazole (NIZORAL) 2 % cream Apply to affected and groin two times daily for maintenance - albuterol (PROVENTIL) 2.5 mg /3 mL (0.083 %) nebulizer solution Use 3 mL via nebulizer every 4 hours as needed for wheezing/shortness of breath. Use over 5-15minutes. - Nebulizer NEBULIZER FOR HOME USE. Facility-Administered Medications as of 10/10/2022 - perflutren lipid microspheres 1.3 mL in NaCl (PF) 0.9% 10 mL injection (DEFINITY) - sodium chloride 0.9 % (flush) 10 mL (BD POSIFLUSH) Problem List As Of Date 10/10/2022 Noted Resolved Esophageal reflux [K21.9] Internal hemorrhoids without mention of complic*10/24/2006 01/02/2017 Tobacco use disorder [F17.200] 10/24/2006 09/04/2011 COPD with exacerbation (HCC) [J44.1] 10/24/2006 Hypothyroidism [E03.9] 11/05/2006 GYNECOMASTIA [N62] 11/08/2006 11/04/2008 Unspecified sleep apnea [G47.30] 04/03/2007 06/09/2013 Lung bullae (HCC) [J43.9] 05/28/2007 SCREENING FOR CONDITION NOS [Z13.9] 11/21/2007 11/04/2008 Obesity, unspecified [E66.9] 11/04/2008 06/08/2013 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/12/2013 Lumbago [M54.50] 03/08/2009 Patient Noncompliance [Z91.199] 02/03/2010 Erectile dysfunction [N52.9] 02/27/2011 Pulmonary embolism [I26.99] 05/19/2011 01/06/2013 Paroxysmal atrial flutter (HCC) [I48.92] 08/20/2011 Atrial fibrillation (HCC) [I48.91] 06/03/2012 06/18/2019 Cervicalgia [M54.2] 01/15/2013 04/13/2013 Headache [R51] 01/15/2013 04/13/2013 SUMMARY [V999.95] 06/08/2013 02/03/2014 History of pulmonary embolism [Z86.711] 06/08/2013 01/02/2017 History of smoking [Z87.891] 06/08/2013 06/09/2013 Hyperlipidemia [E78.5] 06/08/2013 Atelectasis [J98.11] 06/12/2013 02/03/2014 Hypertension [I10] 06/12/2013 Hypovolemia [E86.1] 06/12/2013 06/15/2013 VANIA (obstructive sleep apnea) AHI 71 [G47.33] 12/30/2013 Obesity [E66.9] 12/30/2013 05/11/2019 Nasal congestion [R09.81] 12/30/2013 08/27/2016 Visual impairment in both eyes [H54.3] 12/30/2013 08/27/2016 Physical deconditioning, multifactorial dyspnea*02/03/2014 08/27/2016 Lumbar spondylosis [M47.816] 02/05/2014 12/31/2017 DDD (degenerative disc disease), lumbar [M51.36]02/05/2014 12/31/2017 Sciatica [M54.30] 02/24/2014 Sebaceous cyst [L72.3] 09/03/2016 01/02/2017 Bronchitis [J40] 04/04/2017 Rosacea [L71.9] 04/04/2017 Obesity, Class II, BMI 35-39.9 [E66.9] 04/02/2018 04/05/2021 Iliac artery aneurysm (more content not included)... [facility] 10-10-2022 History of Present illness Narrative [facility] TELEPHONIC OUTREACH Provider Action/FYI: lvm x 3 with ph# Last CDM outreach contact 08/16/22 Baseline: 05/09/22 ADL, FALL, GOAL due: 03/06/23 Contact made with patient: No - Left message Hello my name is Vic Martinez RN your Auto Hauler from the [facility] I am calling today for your bi-weekly check in. I am sorry I missed your call. I will reach out to you again tomorrow. (if the third call I will reach out to you again next week) Enter next patient outreach date for the following business day using the Track Pt Outreach. End outreach. documented in this encounter [facility] 10-09-2022 Note HNO ID: [id number] Author: RT Mauricio(R) Service: ? 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 FALL SCREENING: Has the patient had 2 falls in the last year or 1 fall with injury or currently using an Ambulatory Assistive Device (Walker, Cane, Wheelchair, Crutches, etc.)? No PATIENT GENDER DATA: Male PATIENT RELEVANT IMPLANT DATA REVIEWED: Yes RADIOLOGY DEPARTMENT: CT; Exam(s) Completed: Chest PERIPHERAL IV DATA: Not applicable SIGNED BY: RT Kavita(R) October 09, 2022 3:30 PM [facility] 10-09-2022 History of Present illness Narrative Radiology Service Progress Note PATIENT NAME: Jennie Mccarthy DATE OF SERVICE: October 09, 2022 TIME: 3:30 PM PATIENT IDENTITY VERIFICATION COMPLETED USING TWO (2) IDENTIFIERS: Name and Date of confirmed by patient verbally. FALL SCREENING: Has the patient had 2 falls in the last year or 1 fall with injury or currently using an Ambulatory Assistive Device (Walker, Cane, Wheelchair, Crutches, etc.)? No PATIENT GENDER DATA: Male PATIENT RELEVANT IMPLANT DATA REVIEWED: Yes RADIOLOGY DEPARTMENT: CT; Exam(s) Completed: Chest PERIPHERAL IV DATA: Not applicable SIGNED BY: RT Kavita(R) October 09, 2022 3:30 PM documented in this encounter [facility] 09-27-2022 Miscellaneous Notes Spoke with pts and explained we need to see the patient before any refills are given. Offered virtual visit for 10/15 and she said she will have him call. Nathalie Urbina LPN Called patient but he did not answer and was unable to leave . Patient needs to schedule follow up appointment for seborrheic dermatitis. Bonita Aguilar RN Refill declined. He needs to be seen before refilling. Okay to offer a virtual visit. I have some openings for virtual visit on October 15. I can refill 1 month patient is able to schedule a future appointment. Patient is requesting from [facility]: Refills as follows: KURT: 06/12/2021 Future appt: none Requested Prescriptions Pending Prescriptions Disp Refills ketoconazole (NIZORAL) 2 % shampoo 120 mL 5 Sig: Wash face and scalp daily as needed Please review and advise. Patient has been identified by name and date of : Yes Requested Prescriptions Pending Prescriptions Disp Refills ketoconazole (NIZORAL) 2 % shampoo 120 mL 5 Sig: Wash face and scalp daily as needed RX INSTRUCTIONS: Patient aware RX will be sent to pharmacy. No need to notify patient. Jeannine Campbell documented in this encounter [facility] 09-14-2022 Note Patient Outreach (AM [facility]) JENNIE MCCARTHY ([id number]) 1960 M Date Time Provider Department 09/14/22 VIC MARTINEZ During your visit today, we recorded the following information about you: Vic Martinez RN 09/14/2022 11:13 AM Signed [facility] TELEPHONIC OUTREACH Provider Action/FYI: lvm x 1 Contact made with patient: Yes Patient identified by name and . Discussed care with patient It?s nice talking to you again. As a reminder, this is our bi-weekly check-in where I will be asking you questions about your health. This will only take a few minutes of your time. Is this a good time? Yes Symptoms What Chronic Disease(s) does the patient have: COPD Do you check your blood pressures at home? No Do you have new or worse shortness of breath with activity? No Do you have new or worsening cough? No Do you have new or worsening wheezing? No Do you need to use your rescue (Albuterol) inhaler or nebulizer more often than normal? No Are you having any other symptoms that your PCP needs to know about? No Symptoms: Symptom Escalation [facility] Education Ordered -: No The patient required an escalation for symptom(s)? No Medications Do you have any questions about taking your medication or which medications you should be on? No Do you need any medication refills at this time, including any of the medications you might take only when needed? No Social We would like to make sure you have what you need so that your basic needs are met- including your personal safety, food, housing, transportation and medications? Would you like to speak with a social work sales team recruiter to help give you support for any of these needs? No It can be normal to feel anxious or down during a time like this. Would you like to talk to a mental health professional about how you have been feeling? No Closing Thank you for taking the time to talk with me today. We want to work with you to ensure that we are keeping your medical condition(s) well-controlled and to keep you healthy and out of the doctor's office or hospital. It?s also not too late for me to sign you up for automated weekly questionnaires through [employer]. This is an easy way for us to stay connected each week. Are you interested? No, I understand. We can always sign you up in the future if you change your mind. Just as a reminder, will continue to call you every other week to check in on your health. Our calls should take 10-15 minutes or less. Remember, if you have concerns in between our calls, please call your PCP's office right away. Thank you. Enter next patient outreach date for two weeks on the same day of the week as today in the Track Pt Outreach and End outreach. Allergies As of Date: 09/14/2022 Noted Allergy Reaction PREDNISONE 02/27/2011 9 - Itching Date Reviewed: 07/31/2022 Reviewed by: Cristin Beltrán RN - Fully Assessed Reason for Visit: community monitoring [Other] Cmt: ANANT telephonic Prescriptions as of 09/14/2022 - ibuprofen (MOTRIN) 800 mg tablet Take 800 mg by mouth once daily. - gabapentin (NEURONTIN) 300 mg capsule Take 2 capsules by mouth twice daily for 180 days. - apixaban (ELIQUIS) 5 mg tab(s) Take 1 tablet by mouth twice daily. - lisinopril (ZESTRIL, PRINIVIL) 40 mg tablet Take 1 tablet by mouth once daily. - levothyroxine (SYNTHROID) 137 mcg tablet Take 1 tablet by mouth once daily. Take on empty stomach - atorvastatin (LIPITOR) 80 mg tablet Take 1 tablet by mouth daily at bedtime. For cholesterol. - albuterol HFA (VENTOLIN HFA) 90 mcg/actuation inhaler Inhale 2 Puffs as instructed every 4 hours as needed. - hydroCHLOROthiazide (HYDRODIURIL, ESIDRIX) 12.5 mg capsule Take 1 capsule by mouth once daily. - tiotropium bromide (SPIRIVA RESPIMAT) 2.5 mcg/actuation inhaler Inhale 2 Puffs as instructed once daily. - nitroglycerin sublingual (NITROQUICK) 0.4 mg SL tablet Dissolve 1 tablet under the tongue as needed. FOR CHEST PAIN. IF NO RELIEF CALL 911 - fluocinonide (LIDEX) 0.05 % ointment Apply to affected area on leg twice daily as needed. Cycle 2 weeks on, 1 week off. Not for face, armpits, or groin - ketoconazole (NIZORAL) 2 % shampoo Wash face and scalp daily as needed - hydrocortisone 2.5 % cream Apply to scaly patches on face two times daily as needed for flares. Use 2 weeks on 1 week off - ketoconazole (NIZORAL) 2 % cream Apply to affected and groin two times daily for maintenance - albuterol (PROVENTIL) 2.5 mg /3 mL (0.083 %) nebulizer solution Use 3 mL via nebulizer every 4 hours as needed for wheezing/shortness of breath. Use over 5-15minutes. - Nebulizer NEBULIZER FOR HOME USE. Facility-Administered Medications as of 09/14/2022 - perflutren lipid microspheres 1.3 mL in NaCl (PF) 0.9% 10 mL injection (DEFINITY) - sodium chloride 0.9 % (flush) 10 mL (BD POSIFLUSH) (more content not included)... [facility] 09-14-2022 Note HNO ID: [id number] Author: Vic Martinez RN Service: ? Author Type: Registered Nurse Type: Progress Notes Filed: 09/14/2022 11:13 AM Note Text: [facility] TELEPHONIC OUTREACH Provider Action/FYI: lvm x 1 Contact made with patient: Yes Patient identified by name and . Discussed care with patient It?s nice talking to you again. As a reminder, this is our bi-weekly check-in where I will be asking you questions about your health. This will only take a few minutes of your time. Is this a good time? Yes Symptoms What Chronic Disease(s) does the patient have: COPD Do you check your blood pressures at home? No Do you have new or worse shortness of breath with activity? No Do you have new or worsening cough? No Do you have new or worsening wheezing? No Do you need to use your rescue (Albuterol) inhaler or nebulizer more often than normal? No Are you having any other symptoms that your PCP needs to know about? No Symptoms: Symptom Escalation VALENTINE Education Ordered -: No The patient required an escalation for symptom(s)? No Medications Do you have any questions about taking your medication or which medications you should be on? No Do you need any medication refills at this time, including any of the medications you might take only when needed? No Social We would like to make sure you have what you need so that your basic needs are met- including your personal safety, food, housing, transportation and medications? Would you like to speak with a social work sales team recruiter to help give you support for any of these needs? No It can be normal to feel anxious or down during a time like this. Would you like to talk to a mental health professional about how you have been feeling? No Closing Thank you for taking the time to talk with me today. We want to work with you to ensure that we are keeping your medical condition(s) well-controlled and to keep you healthy and out of the doctor's office or hospital. It?s also not too late for me to sign you up for automated weekly questionnaires through [employer]. This is an easy way for us to stay connected each week. Are you interested? No, I understand. We can always sign you up in the future if you change your mind. Just as a reminder, will continue to call you every other week to check in on your health. Our calls should take 10-15 minutes or less. Remember, if you have concerns in between our calls, please call your PCP's office right away. Thank you. Enter next patient outreach date for two weeks on the same day of the week as today in the Track Pt Outreach and End outreach. [facility] 09-14-2022 History of Present illness Narrative [facility] TELEPHONIC OUTREACH Provider Action/FYI: lvm x 1 Contact made with patient: Yes Patient identified by name and . Discussed care with patient It s nice talking to you again. As a reminder, this is our bi-weekly check-in where I will be asking you questions about your health. This will only take a few minutes of your time. Is this a good time? Yes Symptoms What Chronic Disease(s) does the patient have: COPD Do you check your blood pressures at home? No Do you have new or worse shortness of breath with activity? No Do you have new or worsening cough? No Do you have new or worsening wheezing? No Do you need to use your rescue (Albuterol) inhaler or nebulizer more often than normal? No Are you having any other symptoms that your PCP needs to know about? No Symptoms: Symptom Escalation VALENTINE Education Ordered -: No The patient required an escalation for symptom(s)? No Medications Do you have any questions about taking your medication or which medications you should be on? No Do you need any medication refills at this time, including any of the medications you might take only when needed? No Social We would like to make sure you have what you need so that your basic needs are met- including your personal safety, food, housing, transportation and medications? Would you like to speak with a social work sales team recruiter to help give you support for any of these needs? No It can be normal to feel anxious or down during a time like this. Would you like to talk to a mental health professional about how you have been feeling? No Closing Thank you for taking the time to talk with me today. We want to work with you to ensure that we are keeping your medical condition(s) well-controlled and to keep you healthy and out of the doctor's office or hospital. It s also not too late for me to sign you up for automated weekly questionnaires through [employer]. This is an easy way for us to stay connected each week. Are you interested? No, I understand. We can always sign you up in the future if you change your mind. Just as a reminder, will continue to call you every other week to check in on your health. Our calls should take 10-15 minutes or less. Remember, if you have concerns in between our calls, please call your PCP's office right away. Thank you. Enter next patient outreach date for two weeks on the same day of the week as today in the Track Pt Outreach and End outreach. documented in this encounter [facility] 09-12-2022 Note HNO ID: [id number] Author: Vic Martinez RN Service: ? Author Type: Registered Nurse Type: Progress Notes Filed: 09/12/2022 12:31 PM Note Text: [facility] TELEPHONIC OUTREACH Provider Action/FYI: lvm x 1 Contact made with patient: No - Left message Hello my name is Vic Martinez RN your Auto Hauler from the [facility] I am calling today for your bi-weekly check in. I am sorry I missed your call. I will reach out to you again tomorrow. (if the third call I will reach out to you again next week) Enter next patient outreach date for the following business day using the Track Pt Outreach. End outreach. 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 I am sorry I missed your call. I will reach out to you again tomorrow. (if the third call I will reach out to you again next week) Enter next patient outreach date for the following using the Track Pt Outreach. End outreach. Allergies As of Date: 09/12/2022 Noted Allergy Reaction PREDNISONE 02/27/2011 9 - Itching Date Reviewed: 07/31/2022 Reviewed by: Cristin Beltrán RN - Fully Assessed Reason for Visit: community monitoring [Other] Cmt: [facility] telephonic Prescriptions as of 09/12/2022 - ibuprofen (MOTRIN) 800 mg tablet Take 800 mg by mouth once daily. - gabapentin (NEURONTIN) 300 mg capsule Take 2 capsules by mouth twice daily for 180 days. - apixaban (ELIQUIS) 5 mg tab(s) Take 1 tablet by mouth twice daily. - lisinopril (ZESTRIL, PRINIVIL) 40 mg tablet Take 1 tablet by mouth once daily. - levothyroxine (SYNTHROID) 137 mcg tablet Take 1 tablet by mouth once daily. Take on empty stomach - atorvastatin (LIPITOR) 80 mg tablet Take 1 tablet by mouth daily at bedtime. For cholesterol. - albuterol HFA (VENTOLIN HFA) 90 mcg/actuation inhaler Inhale 2 Puffs as instructed every 4 hours as needed. - hydroCHLOROthiazide (HYDRODIURIL, ESIDRIX) 12.5 mg capsule Take 1 capsule by mouth once daily. - tiotropium bromide (SPIRIVA RESPIMAT) 2.5 mcg/actuation inhaler Inhale 2 Puffs as instructed once daily. - nitroglycerin sublingual (NITROQUICK) 0.4 mg SL tablet Dissolve 1 tablet under the tongue as needed. FOR CHEST PAIN. IF NO RELIEF CALL 911 - fluocinonide (LIDEX) 0.05 % ointment Apply to affected area on leg twice daily as needed. Cycle 2 weeks on, 1 week off. Not for face, armpits, or groin - ketoconazole (NIZORAL) 2 % shampoo Wash face and scalp daily as needed - hydrocortisone 2.5 % cream Apply to scaly patches on face two times daily as needed for flares. Use 2 weeks on 1 week off - ketoconazole (NIZORAL) 2 % cream Apply to affected and groin two times daily for maintenance - albuterol (PROVENTIL) 2.5 mg /3 mL (0.083 %) nebulizer solution Use 3 mL via nebulizer every 4 hours as needed for wheezing/shortness of breath. Use over 5-15minutes. - Nebulizer NEBULIZER FOR HOME USE. Facility-Administered Medications as of 09/12/2022 - perflutren lipid microspheres 1.3 mL in NaCl (PF) 0.9% 10 mL injection (DEFINITY) - sodium chloride 0.9 % (flush) 10 mL (BD POSIFLUSH) Problem List As Of Date 09/12/2022 Noted Resolved Esophageal reflux [K21.9] Internal hemorrhoids without mention of complic*10/24/2006 01/02/2017 Tobacco use disorder [F17.200] 10/24/2006 09/04/2011 COPD with exacerbation (HCC) [J44.1] 10/24/2006 Hypothyroidism [E03.9] 11/05/2006 GYNECOMASTIA [N62] 11/08/2006 11/04/2008 Unspecified sleep apnea [G47.30] 04/03/2007 06/09/2013 Lung bullae (HCC) [J43.9] 05/28/2007 SCREENING FOR CONDITION NOS [Z13.9] 11/21/2007 11/04/2008 Obesity, unspecified [E66.9] 11/04/2008 06/08/2013 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/12/2013 Lumbago [M54.50] 03/08/2009 Patient Noncompliance [Z91.199] 02/03/2010 Erectile dysfunction [N52.9] 02/27/2011 Pulmonary embolism [I26.99] 05/19/2011 01/06/2013 Paroxysmal atrial flutter (HCC) [I48.92] 08/20/2011 Atrial fibrillation (HCC) [I48.91] 06/03/2012 06/18/2019 Cervicalgia [M54.2] 01/15/2013 04/13/2013 Headache [R51] 01/15/2013 04/13/2013 SUMMARY [V999.95] 06/08/2013 02/03/2014 History of pulmonary embolism [Z86.711] 06/08/2013 01/02/2017 History of smoking [Z87.891] 06/08/2013 06/09/2013 Hyperlipidemia [E78.5] 06/08/2013 Atelectasis [J98.11] 06/12/2013 02/03/2014 Hypertension [I10] 06/12/2013 Hypovolemia [E86.1] 06/12/2013 06/15/2013 VANIA (obstructive sleep apnea) AHI 71 [G47.33] 12/30/2013 Obesity [E66.9] 12/30/2013 05/11/2019 Nasal congestion [R09.81] 12/30/2013 08/27/2016 Visual impairment in both eyes [H54.3] 12/30/2013 08/27/2016 Physical deconditioning, multifactorial dyspnea*02/03/2014 08/27/2016 Lumbar spondylosis [M47.816] 02/05/2014 12/31/2017 DDD (degenerative disc disease), lumbar [M51.36]02/05/2014 12/31/2017 Sciatica [M54.30] 02/24/2014 Sebaceous cyst [L72.3] 09/03/2016 01/02/2017 Bronchitis [J40] 04/04/2017 Rosacea [L71.9] 04/04/2017 Obesity, Class II, BMI 35-39.9 [E66.9] 04/02/2018 04/05/2021 Iliac artery aneurysm, 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 I am sorry I missed your call. I will reach out to you again tomorrow. (if the third call I will reach out to you again next week) Enter next patient outreach date for the following day using the Track Pt Outreach. End outreach. documented in this encounter [facility] 08-16-2022 Note Patient Outreach (AM BC) JENNIE MCCARTHY ([id number]) 1960 M Date Time Provider Department 08/16/22 VIC MARTINEZ During your visit today, we recorded the following information about you: Vic Martinez RN 08/16/2022 10:14 AM Signed Cardiorobotics [facility] TELEPHONIC OUTREACH Provider Action/FYI: A couple of days ago pt notice intermittent right lateral abd pain. Describes as sharp and worse with lying down Denies dsyuria. BM daily, but last normal amount was a couple days ago Offered appt with virtualist; pt declined. He is busy and has things to do Pt stated if no better he will go to urgent care or ED. Encouraged virtualist; pt declined Pt hung up Contact made with patient: Yes Patient identified by name and . Discussed care with patient It?s nice talking to you again. As a reminder, this is our bi-weekly check-in where I will be asking you questions about your health. This will only take a few minutes of your time. Is this a good time? Yes Symptoms What Chronic Disease(s) does the patient have: COPD Do you check your blood pressures at home? No Do you have new or worse shortness of breath with activity? No Do you have new or worsening cough? No Do you have new or worsening wheezing? No Do you need to use your rescue (Albuterol) inhaler or nebulizer more often than normal? No Are you having any other symptoms that your PCP needs to know about? No Symptoms: See FYI Symptom Escalation [facility] Education Ordered -: No The patient required an escalation for symptom(s)? No Medications Do you have any questions about taking your medication or which medications you should be on? No Do you need any medication refills at this time, including any of the medications you might take only when needed? No Social We would like to make sure you have what you need so that your basic needs are met- including your personal safety, food, housing, transportation and medications? Would you like to speak with a social work sales team recruiter to help give you support for any of these needs? No It can be normal to feel anxious or down during a time like this. Would you like to talk to a mental health professional about how you have been feeling? No Closing Thank you for taking the time to talk with me today. We want to work with you to ensure that we are keeping your medical condition(s) well-controlled and to keep you healthy and out of the doctor's office or hospital. It?s also not too late for me to sign you up for automated weekly questionnaires through [employer]. This is an easy way for us to stay connected each week. Are you interested? No, I understand. We can always sign you up in the future if you change your mind. Just as a reminder, will continue to call you every other week to check in on your health. Our calls should take 10-15 minutes or less. Remember, if you have concerns in between our calls, please call your PCP's office right away. Thank you. Enter next patient outreach date for two weeks on the same day of the week as today in the Track Pt Outreach and End outreach. Allergies As of Date: 08/16/2022 Noted Allergy Reaction PREDNISONE 02/27/2011 9 - Itching Date Reviewed: 07/31/2022 Reviewed by: Cristin Beltrán RN - Fully Assessed Reason for Visit: community monitoring [Other] Cmt: [facility] telephonic Prescriptions as of 08/16/2022 - ibuprofen (MOTRIN) 800 mg tablet Take 800 mg by mouth once daily. - gabapentin (NEURONTIN) 300 mg capsule Take 2 capsules by mouth twice daily for 180 days. - apixaban (ELIQUIS) 5 mg tab(s) Take 1 tablet by mouth twice daily. - lisinopril (ZESTRIL, PRINIVIL) 40 mg tablet Take 1 tablet by mouth once daily. - levothyroxine (SYNTHROID) 137 mcg tablet Take 1 tablet by mouth once daily. Take on empty stomach - atorvastatin (LIPITOR) 80 mg tablet Take 1 tablet by mouth daily at bedtime. For cholesterol. - albuterol HFA (VENTOLIN HFA) 90 mcg/actuation inhaler Inhale 2 Puffs as instructed every 4 hours as needed. - hydroCHLOROthiazide (HYDRODIURIL, ESIDRIX) 12.5 mg capsule Take 1 capsule by mouth once daily. - tiotropium bromide (SPIRIVA RESPIMAT) 2.5 mcg/actuation inhaler Inhale 2 Puffs as instructed once daily. - nitroglycerin sublingual (NITROQUICK) 0.4 mg SL tablet Dissolve 1 tablet under the tongue as needed. FOR CHEST PAIN. IF NO RELIEF CALL 911 - fluocinonide (LIDEX) 0.05 % ointment Apply to affected area on leg twice daily as needed. Cycle 2 weeks on, 1 week off. Not for face, armpits, or groin - ketoconazole (NIZORAL) 2 % shampoo Wash face and scalp daily as needed - hydrocortisone 2.5 % cream Apply to scaly patches on face two times daily as needed for flares. Use 2 weeks on 1 week off - ketoconazole (NIZORAL) 2 % cream Apply to affected and groin two times daily for maintenance - albuterol (PROVENTIL) 2.5 mg /3 mL ( (more content not included)... [facility] 08-16-2022 Note HNO ID: [id number] Author: Vic Martinez RN Service: ? Author Type: Registered Nurse Type: Progress Notes Filed: 08/16/2022 10:14 AM Note Text: INSIGHT [facility] TELEPHONIC OUTREACH Provider Action/FYI: A couple of days ago pt notice intermittent right lateral abd pain. Describes as sharp and worse with lying down Denies dsyuria. BM daily, but last normal amount was a couple days ago Offered appt with virtualist; pt declined. He is busy and has things to do Pt stated if no better he will go to urgent care or ED. Encouraged virtualist; pt declined Pt hung up Contact made with patient: Yes Patient identified by name and . Discussed care with patient It?s nice talking to you again. As a reminder, this is our bi-weekly check-in where I will be asking you questions about your health. This will only take a few minutes of your time. Is this a good time? Yes Symptoms What Chronic Disease(s) does the patient have: COPD Do you check your blood pressures at home? No Do you have new or worse shortness of breath with activity? No Do you have new or worsening cough? No Do you have new or worsening wheezing? No Do you need to use your rescue (Albuterol) inhaler or nebulizer more often than normal? No Are you having any other symptoms that your PCP needs to know about? No Symptoms: See FYI Symptom Escalation [facility] Education Ordered -: No The patient required an escalation for symptom(s)? No Medications Do you have any questions about taking your medication or which medications you should be on? No Do you need any medication refills at this time, including any of the medications you might take only when needed? No Social We would like to make sure you have what you need so that your basic needs are met- including your personal safety, food, housing, transportation and medications? Would you like to speak with a social work sales team recruiter to help give you support for any of these needs? No It can be normal to feel anxious or down during a time like this. Would you like to talk to a mental health professional about how you have been feeling? No Closing Thank you for taking the time to talk with me today. We want to work with you to ensure that we are keeping your medical condition(s) well-controlled and to keep you healthy and out of the doctor's office or hospital. It?s also not too late for me to sign you up for automated weekly questionnaires through [employer]. This is an easy way for us to stay connected each week. Are you interested? No, I understand. We can always sign you up in the future if you change your mind. Just as a reminder, will continue to call you every other week to check in on your health. Our calls should take 10-15 minutes or less. Remember, if you have concerns in between our calls, please call your PCP's office right away. Thank you. Enter next patient outreach date for two weeks on the same day of the week as today in the Track Pt Outreach and End outreach. [facility] 08-16-2022 History of Present illness Narrative INSIGHT [facility] TELEPHONIC OUTREACH Provider Action/FYI: A couple of days ago pt notice intermittent right lateral abd pain. Describes as sharp and worse with lying down Denies dsyuria. BM daily, but last normal amount was a couple days ago Offered appt with virtualist; pt declined. He is busy and has things to do Pt stated if no better he will go to urgent care or ED. Encouraged virtualist; pt declined Pt hung up Contact made with patient: Yes Patient identified by name and . Discussed care with patient It s nice talking to you again. As a reminder, this is our bi-weekly check-in where I will be asking you questions about your health. This will only take a few minutes of your time. Is this a good time? Yes Symptoms What Chronic Disease(s) does the patient have: COPD Do you check your blood pressures at home? No Do you have new or worse shortness of breath with activity? No Do you have new or worsening cough? No Do you have new or worsening wheezing? No Do you need to use your rescue (Albuterol) inhaler or nebulizer more often than normal? No Are you having any other symptoms that your PCP needs to know about? No Symptoms: See FYI Symptom Escalation [facility] Education Ordered -: No The patient required an escalation for symptom(s)? No Medications Do you have any questions about taking your medication or which medications you should be on? No Do you need any medication refills at this time, including any of the medications you might take only when needed? No Social We would like to make sure you have what you need so that your basic needs are met- including your personal safety, food, housing, transportation and medications? Would you like to speak with a social work sales team recruiter to help give you support for any of these needs? No It can be normal to feel anxious or down during a time like this. Would you like to talk to a mental health professional about how you have been feeling? No Closing Thank you for taking the time to talk with me today. We want to work with you to ensure that we are keeping your medical condition(s) well-controlled and to keep you healthy and out of the doctor's office or hospital. It s also not too late for me to sign you up for automated weekly questionnaires through [employer]. This is an easy way for us to stay connected each week. Are you interested? No, I understand. We can always sign you up in the future if you change your mind. Just as a reminder, will continue to call you every other week to check in on your health. Our calls should take 10-15 minutes or less. Remember, if you have concerns in between our calls, please call your PCP's office right away. Thank you. Enter next patient outreach date for two weeks on the same day of the week as today in the Track Pt Outreach and End outreach. documented in this encounter [facility] 08-02-2022 Miscellaneous Notes Patient returned call and given provider's message below. Deborah Bell RN Left a message for pt to call the office and ask to speak to a nurse. Alyx Goodman LPN Left message to call & speak to nurse. Dianelys Cruz LPN The answer is yes, he can hold apixiban 24 to 48 hours before a procedure. It is not clear if he had the procedure or not today. Patient calling and states he will be having a back injection tomorrow and he was advised to stop his Eliquis 2 days before procedure. He has not stopped the medication as of this time but would like to hold today and tomorrow's dose. Pt calling to ask PCP if it is ok to do this? Please advise patient. documented in this encounter [facility] 08-02-2022 Note HNO ID: [id number] Author: Vic Martinez RN Service: ? Author Type: Registered Nurse Type: Progress Notes Filed: 08/02/2022 8:59 AM Note Text: [facility] TELEPHONIC OUTREACH Provider Action/FYI: sneha x2 with ph# 07/31/22 back nerve block procedure Contact made with patient: No - Left message Portillo my name is Vic Martinez RN your Auto Hauler from the [facility] I am calling today for your bi-weekly check in. I am sorry I missed your call. I will reach out to you again tomorrow. (if the third call I will reach out to you again next week) Enter next patient outreach date for the following using the Track Pt Outreach. End outreach. [facility] 08-01-2022 Note Patient Outreach (AM [facility]) JENNIE MCCARTHY ([id number]) 1960 M Date Time Provider Department 08/01/22 VIC MARTINEZBri During your visit today, we recorded the following information about you: Vic Martinez RN 08/01/2022 11:04 AM Signed [facility] [place] TELEPHONIC OUTREACH Provider Action/FYI: sneha x1 with ph# 07/31/22 back nerve block procedure Contact made with patient: No - Left message Portillo my name is Vic Martinez RN your Auto Hauler from the [facility] I am calling today for your bi-weekly check in. I am sorry I missed your call. I will reach out to you again tomorrow. (if the third call I will reach out to you again next week) Enter next patient outreach date for the following business day using the Track Pt Outreach. End outreach. Vic Martinez RN 08/02/2022 8:59 AM Signed [facility]IGHT [facility] TELEPHONIC OUTREACH Provider Action/FYI: alexandram x2 with ph# 07/31/22 back nerve block procedure Contact made with patient: No - Left message Hello my name is Vic Martinez RN your Auto Hauler from the [facility] I am calling today for your bi-weekly check in. I am sorry I missed your call. I will reach out to you again tomorrow. (if the third call I will reach out to you again next week) Enter next patient outreach date for the following business day using the Track Pt Outreach. End outreach. Allergies As of Date: 08/01/2022 Noted Allergy Reaction PREDNISONE 02/27/2011 9 - Itching Date Reviewed: 07/31/2022 Reviewed by: Cristin Beltrán RN - Fully Assessed Reason for Visit: community monitoring [Other] Cmt: [facility] telephonic Prescriptions as of 08/02/2022 - ibuprofen (MOTRIN) 800 mg tablet Take 800 mg by mouth once daily. - gabapentin (NEURONTIN) 300 mg capsule Take 2 capsules by mouth twice daily for 180 days. - apixaban (ELIQUIS) 5 mg tab(s) Take 1 tablet by mouth twice daily. - lisinopril (ZESTRIL, PRINIVIL) 40 mg tablet Take 1 tablet by mouth once daily. - levothyroxine (SYNTHROID) 137 mcg tablet Take 1 tablet by mouth once daily. Take on empty stomach - atorvastatin (LIPITOR) 80 mg tablet Take 1 tablet by mouth daily at bedtime. For cholesterol. - albuterol HFA (VENTOLIN HFA) 90 mcg/actuation inhaler Inhale 2 Puffs as instructed every 4 hours as needed. - hydroCHLOROthiazide (HYDRODIURIL, ESIDRIX) 12.5 mg capsule Take 1 capsule by mouth once daily. - tiotropium bromide (SPIRIVA RESPIMAT) 2.5 mcg/actuation inhaler Inhale 2 Puffs as instructed once daily. - nitroglycerin sublingual (NITROQUICK) 0.4 mg SL tablet Dissolve 1 tablet under the tongue as needed. FOR CHEST PAIN. IF NO RELIEF CALL 911 - fluocinonide (LIDEX) 0.05 % ointment Apply to affected area on leg twice daily as needed. Cycle 2 weeks on, 1 week off. Not for face, armpits, or groin - ketoconazole (NIZORAL) 2 % shampoo Wash face and scalp daily as needed - hydrocortisone 2.5 % cream Apply to scaly patches on face two times daily as needed for flares. Use 2 weeks on 1 week off - ketoconazole (NIZORAL) 2 % cream Apply to affected and groin two times daily for maintenance - albuterol (PROVENTIL) 2.5 mg /3 mL (0.083 %) nebulizer solution Use 3 mL via nebulizer every 4 hours as needed for wheezing/shortness of breath. Use over 5-15minutes. - Nebulizer NEBULIZER FOR HOME USE. 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] 05/28/2007 SCREENING FOR CONDITION NOS [Z13.9] 11/21/2007 11/04/2008 Obesity, unspecified [E66.9] 11/04/2008 06/08/2013 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/12/2013 Lumbago [M54.50] 03/08/2009 Patient Noncompliance [Z91.199] 02/03/2010 Erectile dysfunction [N52.9] 02/27/2011 Pulmonary embolism [I26.99] 05/19/2011 01/06/2013 Paroxysmal atrial flutter (HCC) [I48.92] 08/20/2011 Atrial fibrillation (HCC) [I48.91] 06/03/2012 06/18/2019 Cervicalgia [M54.2] 01/15/2013 04/13/2013 Headache [R51] 01/15/2013 04/13/2013 SUMMARY [V999.95] 06/08/2013 02/03/2014 History of pulmonary embolism [Z86.711] 06/08/2013 01/02/2017 History of smoking [Z87.891] 06/08/2013 06/09/2013 Hyperlipidemia [E78.5] 06/08/2013 Atelectasis [J98.11] 06/12/2013 02/03/2014 Hypertension [I10] 06/12/2013 Hypovolemia [E86.1] 06/12/2013 06/15/2013 VANIA (obstructive sleep apnea) AHI 71 [G47.33] 12/30/2013 Obesity [E66.9] 12/30/2013 (more content not included)... [facility] 08-01-2022 Note HNO ID: [id number] Author: Vic Martinez RN Service: ? Author Type: Registered Nurse Type: Progress Notes Filed: 08/01/2022 11:04 AM Note Text: [facility] TELEPHONIC OUTREACH Provider Action/FYI: sneha x1 with ph# 07/31/22 back nerve block procedure Contact made with patient: No - Left message Portillo my name is Vic Martinez RN your Auto Hauler from the [facility] I am calling today for your bi-weekly check in. I am sorry I missed your call. I will reach out to you again tomorrow. (if the third call I will reach out to you again next week) Enter next patient outreach date for the following day using the Track Pt Outreach. End outreach. [facility] 08-01-2022 History of Present illness Narrative [facility] TELEPHONIC OUTREACH Provider Action/FYI: lvm x1 with ph# 07/31/22 back nerve block procedure Contact made with patient: No - Left message Helkrunal my name is Vic Martinez RN your Auto Hauler from the [facility] I am calling today for your bi-weekly check in. I am sorry I missed your call. I will reach out to you again tomorrow. (if the third call I will reach out to you again next week) Enter next patient outreach date for the following using the Track Pt Outreach. End outreach. documented in this encounter [facility] 07-04-2022 History of Present illness Narrative INSIGHT CDM TELEPHONIC OUTREACH Provider Action/FYI: No new concerns Contact made with patient: Yes Patient identified by name and . Discussed care with patient and spouse It s nice talking to you again. As a reminder, this is our bi-weekly check-in where I will be asking you questions about your health. This will only take a few minutes of your time. Is this a good time? Yes Symptoms What Chronic Disease(s) does the patient have: COPD Do you check your blood pressures at home? No Do you have new or worse shortness of breath with activity? No Do you have new or worsening cough? No Do you have new or worsening wheezing? No Do you need to use your rescue (Albuterol) inhaler or nebulizer more often than normal? No Are you having any other symptoms that your PCP needs to know about? No Symptoms: no new Symptom Escalation VALENTINE Education Ordered -: Yes The patient required an escalation for symptom(s)? No Medications Do you have any questions about taking your medication or which medications you should be on? No Do you need any medication refills at this time, including any of the medications you might take only when needed? No Social We would like to make sure you have what you need so that your basic needs are met- including your personal safety, food, housing and medications? Would you like to speak with a social work sales team recruiter to help give you support for any of these needs? No It can be normal to feel anxious or down during a time like this. Would you like to talk to a mental health professional about how you have been feeling? No Closing Thank you for taking the time to talk with me today. We want to work with you to ensure that we are keeping your medical condition(s) well-controlled and to keep you healthy and out of the doctor's office or hospital. It s also not too late for me to sign you up for automated weekly questionnaires through [employer]. This is an easy way for us to stay connected each week. Are you interested? No, I understand. We can always sign you up in the future if you change your mind. Just as a reminder, will continue to call you every other week to check in on your health. Our calls should take 10-15 minutes or less. Remember, if you have concerns in between our calls, please call your PCP's office right away. Thank you. Enter next patient outreach date for two weeks on the same day of the week as today in the Track Pt Outreach and End outreach. documented in this encounter [facility] 06-28-2022 Miscellaneous Notes Called and spoke with patient. Patient previously scheduled for: 07/31/21 Patient is required and instructed to hold the following medication(s) prior to the injection: - Eliquis for 48 hours - NSAIDS for 5 days prior Pre-procedure Instructions reviewed over telephone and a list of instructions were mailed to the patient at: [address] [place] [id number] Patient verbalized understanding with no additional questions or concerns at this time. Email received from pre-access denials support team Good afternoon, We are glad to inform you that your appeal was successfully overturned and CPT 94435, [id number] are now approved, under Authorization # [id number], valid from 05/17/2022 to 09/24/2022, allowed for 1 visit. Thank you, Patient may be scheduled for Bilateral L4-L5 and L5-S1 Lumbar Facet Medial Branch Nerve Blocks Please Note: Transitional Segment Patient added to injection scheduling spreadsheet Office to contact patient within 5 business days to schedule documented in this encounter [facility] 06-21-2022 History of Present illness Narrative SUBJECTIVE: Jennie Mccarthy presents to [facility] for a follow up appointment for . Since the last visit, Jennie Mccarthy states the pain seems like it's worse than it ever was. Current pain intensity is 10 on a scale of 0-10. Pain located in lower back area and radiates down bilateral LE. Pain described as sharp and achy. The patient reports numbness and tingling. Symptoms interfere with physical activity, walking, sleeping, sitting, cooking, household cleaning, lifting, and social activities. . Pain is exacerbated by lying down. Pain is mitigated by unable to pinpoint positions/factors that are mitigating. The patient is not currently receiving medications through the [facility]. REVIEW OF SYSTEMS: Constitutional: (-) Weight Gain (-) Weight Loss (+) Fatigue Cardiovascular: (-) hx heart surgery (-) Pacemaker Respiratory: (+) Shortness of Breath (+) Cough (+) Snoring Gastrointestinal: (-) Incontinence (-) Diarrhea (+) Constipation (-) Nausea/Vomiting Endocrine: (+) Thyroid Disorder (-) Diabetes Hematologic: (+) Prolonged Bleeding (+) Easy Bruising Genitourinary: (-) Incontinence (+) Frequency (-) Urinary Urgency Skin: (+) Open sores/wound Neurologic: (-) Headache (-) Double Vision Psychiatric: (+) Depression (-) Anxiety (-) Personal History of Alcohol or Substance Abuse (-) Family History of Alcohol or Substance Abuse CHIEF COMPLAINT:Patient presents with: Back Pain OBJECTIVE: Pulse 63 Wt 224 lb (101.6kg) SpO2 95% PHYSICAL EXAMINATION: General appearance: Well appearing, in no acute distress, alert and oriented x3 Skin: Skin color, texture, turgor normal, no rashes or lesions Neck: No pain to palpation over the cervical paraspinous muscles. No pain with neck flexion, extension, or lateral flexion Cardiovascular: Regular, rate and rhythm Lungs: Normal respiratory rate and rhythm, Lungs clear to auscultation Back: Intact range of motion with pain reproduction. Facet:positive bilateral lumbar facet loading SI JOINT: neg PSIS tenderness Spine: Reports Tenderness on palpation: Lumbar/axial Extremities: No deformities, edema, or skin discoloration. Good capillary refill. Musculoskeletal: chronic right knee pain Neuro: No loss of sensation is noted. Motor skills intact Station and Gait: antalgic gait Trigger points: lumbosacral spine muscles. ASSESSMENT: Assessment : Patient presents for follow-up visit Patient has a chronic history of low back pain that is radiating into the right hip and down the right lower extremity Patient reports that his right knee needs replaced. He signed up for a bowling league and plans to have it replaced once he is done bowling Insurance denied the bilateral L4, 5, S1 facet injections. It is in the process of appeal and we should have an answer after July 12 Dr. Shields will need to perform x2 diagnostic facet medial branch nerve blocks with improvement before he can proceed with the radiofrequency ablations. Patient reports that he walks every day Discussed the importance of stretching. He provided a handout for facet exercises stretches Discussed trial of a muscle relaxer, Robaxin 3 times daily His PCP prescribes gabapentin 1200 mg daily Patient does smoke marijuana. He has thought about getting his medical marijuana card. Encounter Diagnosis ICD-10-CM 1. Lumbar spondylosis M47.816 NJX DX/THER AGT PVRT FACET JT LMBR/SAC 1 LEVEL NJX DX/THER AGT PVRT FACET JT LMBR/SAC 2ND LEVEL 2. Lumbar facet arthropathy M47.816 NJX DX/THER AGT PVRT FACET JT LMBR/SAC 1 LEVEL NJX DX/THER AGT PVRT FACET JT LMBR/SAC 2ND LEVEL 3. Other chronic pain G89.29 4. Myalgia M79.10 5. Right leg pain M79.604 6. Chronic pain of right knee M25.561 G89.29 PDMP website checked and validated. All prescriptions have been APPROPRIATELY filled. No suspicious activity was identified. 06/21/2022 by Gege Maravilla APRN.[employer]CHARD [employer]ER Narcotic Agreement reviewed and signed?: N/A on June 21, 2022 Urine Panel: Lab Results Component Value Date Cannabinoid Quant, Urine 260 (H) 02/21/2016 Benzoylecognine Quant, Urine <24 02/21/2016 6-Acetylmorphine Quant, Urine <5 02/21/2016 Amphetamine Quant, Urine <5 02/21/2016 Methamphetamine Quant, Urine <8 02/21/2016 Buprenorphine Quant, Urine <20 02/21/2016 Norbuprenorphine Quant, Urine <20 02/21/2016 Methadone Quant, Urine <16 02/21/2016 EDDP Quant, Urine <6 02/21/2016 Tramadol Quant, Urine <25 02/21/2016 Desmethyltramadol Quant, Urine <20 02/21/2016 Fentanyl Quant, Urine <6 02/21/2016 Norfentanyl Quant, Urine <6 02/21/2016 Codeine Quant, Urine <11 02/21/2016 Morphine Quant, Urine <10 02/21/2016 Dihydrocodeine Quant, Urine <5 02/21/2016 Hydrocodone Quant, Urine <8 02/21/2016 Oxycodone Quant, Urine <5 02/21/2016 Hydromorphone Quant, Urine <5 02/21/2016 Oxymorphone Quant, Urine <5 02/21/2016 Creatinine,Ur Pain Schmidt 20-50 02/21/2016 Urine pH, Pain Schmidt 4-10 02/21/2016 Specific [place],Ur Pain Schmidt 1.005-1.020 02/21/2016 Oxidants,Ur Negative 02/21/2016 Specimen Quality, Ur Pain Schmidt Specimen quality results within acceptable limits. 02/21/2016 The pain panel was Reviewed - Inconsistencies noted. Results show use of illegal substances. Discussion: A discussion was entertained regarding multicomponent back pain source. Discussed conservative options and focus on improvement of function. Discussed the rationale behind interventional approach and how it can facilitate improvement of pain but also diagnostic information that procedures provide. retirement use of any opioid pain medication is discouraged in chronic benign pain. PLAN: Injection history was reviewed. Medication use and compliance were reviewed. 1. Continue medication management through the [facility] 2. The following approved medication requests have been transmitted electronically. Requested Prescriptions Signed Prescriptions Disp Refills methocarbamol (ROBAXIN-750) 750 mg tablet 90 tablet 0 Sig: Take 1 tablet by mouth three times daily. 3. Interventional procedure options discussed. Working on the appeal for lumbar facet injections. Schedule injection for 07/31. Reviewed procedural instructions. Handout given. Patient is on Eliquis will reach out to primary care to be sure he to stop the medication for 48 hours prior to the procedure 4. Encouraged regular home exercise program. Handout given for facet exercises 5) patient instructed to contact the office 2 weeks after the procedure to report his percentage of improvement. If patient has improvements we will proceed with repeat facet injections. Consider RFA's. I spent a total of 25 minutes on the date of the service which included preparing to see the patient, [id number] patient care, completing clinical documentation, performing a medically appropriate examination, and ordering medications, tests, or procedures. The above plan and management options were discussed at length with patient. Patient is in agreement with the above and verbalized understanding. Gege Maravilla APRN, EDWIN June 21, 2022 documented in this encounter [facility] 06-06-2022 History of Present illness Narrative INSIGHT CDM TELEPHONIC OUTREACH Provider Action/FYI: no concerns Offered smoking cessation; pt declined. Not ready to quit Contact made with patient: Yes Patient identified by name and . Discussed care with patient It s nice talking to you again. As a reminder, this is our bi-weekly check-in where I will be asking you questions about your health. This will only take a few minutes of your time. Is this a good time? Yes Symptoms What Chronic Disease(s) does the patient have: COPD Do you check your blood pressures at home? No Do you have new or worse shortness of breath with activity? No Do you have new or worsening cough? No Do you have new or worsening wheezing? No Do you need to use your rescue (Albuterol) inhaler or nebulizer more often than normal? No Are you having any other symptoms that your PCP needs to know about? No Symptom Escalation The patient required an escalation for symptom(s)? No Medications Do you have any questions about taking your medication or which medications you should be on? No Do you need any medication refills at this time, including any of the medications you might take only when needed? No Social We would like to make sure you have what you need so that your basic needs are met- including your personal safety, food, housing and medications? Would you like to speak with a social work sales team recruiter to help give you support for any of these needs? No It can be normal to feel anxious or down during a time like this. Would you like to talk to a mental health professional about how you have been feeling? No Closing Thank you for taking the time to talk with me today. We want to work with you to ensure that we are keeping your medical condition(s) well-controlled and to keep you healthy and out of the doctor's office or hospital. It s also not too late for me to sign you up for automated weekly questionnaires through [employer]. This is an easy way for us to stay connected each week. Are you interested? No, I understand. We can always sign you up in the future if you change your mind. Just as a reminder, will continue to call you every other week to check in on your health. Our calls should take 10-15 minutes or less. Remember, if you have concerns in between our calls, please call your PCP's office right away. Thank you. Enter next patient outreach date for two weeks on the same day of the week as today in the Track Pt Outreach and End outreach. documented in this encounter [facility] 05-30-2022 Miscellaneous Notes Patient's insurance denying Diagnostic Bilateral L4-L5 and L5-S1 Lumbar Facet Medial Branch Nerve Blocks Denial Reason: [id number]: Your doctor told us that you have low back pain. Your doctor wants to give you an injection in between the bones of your low back to treat this. There is a different procedure (radiofrequency ablation or RFA) that has been shown to be effective. To use the injection your doctor has asked for there should be a reason (such as established spinal pseudarthrosis, implanted electrical device) why the RFA procedure cannot be used. We reviewed the notes we have. The notes do not show why the RFA procedure cannot be used. For this reason, this injection is not medically necessary. We used Medicare Local Coverage Determination (LCD): Facet Joint Interventions for Pain Management ([id number]) to make this decision.. [id number]: Your doctor told us that you have low back pain. Your doctor wants to give you an injection in between the bones of your low back to treat this. There is a different procedure (radiofrequency ablation or RFA) that has been shown to be effective. To use the injection your doctor has asked for there should be a reason (such as established spinal pseudarthrosis, implanted electrical device) why the RFA procedure cannot be used. We reviewed the notes we have. The notes do not show why the RFA procedure cannot be used. For this reason, this injection is not medically necessary. We used Medicare Local Coverage Determination (LCD): Facet Joint Interventions for Pain Management (C12424) to make this decision. Please note: Dr. Shields plans to proceed with a radiofrequency ablation if patient has significant improvement with two diagnostic blocks. Will appeal to [employer] insurance Will make pre-access denials support team aware of appeal. documented in this encounter [facility] 05-28-2022 History of Present illness Narrative CC Patient presents with: blood pressure follow up HPI Jennie Mccarthy is a 61 year old male who presents to the office for blood pressure. His visit today is for follow-up. Patient was last seen for this approximately 2 months ago. Medication changes: Yes HCTZ 12.5 mg initiated Taking all medications as prescribed: Yes Side effects: No Home BP's: Yes but can't recall the actual readings, they have been really good Denies: headache, chest pain, palpitations, dyspnea, and peripheral edema. Last 4 Encounter BP Readings: Date: BP: 05/28/2022 140/78 05/28/2022 135/82 03/28/2022 148/82 02/19/2022 138/86 Last 3 Encounter Wt Readings: Date: Wt: 05/28/2022 100.7 kg (222 lb) 05/28/2022 101.8 kg (224 lb 6.4 oz) 03/28/2022 98.9 kg (218 lb) REVIEW OF SYSTEMS See HPI PAST MEDICAL HISTORY Diagnosis Date AAA (abdominal aortic aneurysm) 03/02/2009 Atrial fibrillation (HCC) Atrial flutter (HCC) 08/20/2011 Chronic cholecystitis Coronary artery disease DDD (degenerative disc disease), lumbar 02/05/2014 Emphysematous bleb (HCC) 05/28/2007 Right upper lung. Erectile dysfunction 02/27/2011 Esophageal reflux Gastroesophageal reflux Fatty liver GYNECOMASTIA 11/08/2006 Hemorrhage of rectum and anus 12/25/2009 bleeding hemorrhoids Hiatal hernia Hypertension 06/12/2013 Obesity, unspecified 11/04/2008 Obstructive sleep apnea CPAP Other and unspecified hyperlipidemia 11/05/2006 Other emphysema (HCC) Emphysema Pulmonary embolism (HCC) 05/19/2011 Substance abuse (HCC) Tobacco use disorder 10/24/2006 ex-smoker Unspecified constipation Constipation Unspecified hypothyroidism 11/05/2006 PAST SURGICAL HISTORY Procedure Laterality Date COLONOSCOPY 2005 COLONOSCOPY FLX DX W/COLLJ SPEC WHEN PFRMD 12/26/09 DIR RPR ANEURYSM ABDOMINAL AORTA 06/12/2013 Abd Aortic Aneurysm Repair, Endovascular ENDOVAS REPAIR ILIAC ANEURYSM Right 01/15/2020 R hypogastric coiling, R common femoral access FOCAL LASER RETINAL TUMOR OS (LEFT EYE) Left 10/2019 Retinal Tear HEMORRHOIDECTOMY INTERNAL RUBBER BAND LIGATIONS 11/2004 LAPS SURG CHOLECYSTECTOMY W/CHOLANGIOGRAPHY 07/07/07 TONSILLECTOMY PRIMARY/SECONDARY <AGE 11 1972 Tonsillectomy ALLERGIES Prednisone MEDICATIONS gabapentin (NEURONTIN) 300 mg capsule^Take 2 capsules by mouth twice daily for 180 days.^Disp: 120 capsule^Rfl: 5 apixaban (ELIQUIS) 5 mg tab(s)^Take 1 tablet by mouth twice daily.^Disp: 180 tablet^Rfl: 3 lisinopril (ZESTRIL, PRINIVIL) 40 mg tablet^Take 1 tablet by mouth once daily.^Disp: 90 tablet^Rfl: 3 levothyroxine (SYNTHROID) 137 mcg tablet^Take 1 tablet by mouth once daily. Take on empty stomach^Disp: 90 tablet^Rfl: 3 atorvastatin (LIPITOR) 80 mg tablet^Take 1 tablet by mouth daily at bedtime. For cholesterol.^Disp: 90 tablet^Rfl: 3 albuterol HFA (VENTOLIN HFA) 90 mcg/actuation inhaler^Inhale 2 Puffs as instructed every 4 hours as needed.^Disp: 18 g^Rfl: 3 hydroCHLOROthiazide (HYDRODIURIL, ESIDRIX) 12.5 mg capsule^Take 1 capsule by mouth once daily.^Disp: 90 capsule^Rfl: 3 tiotropium bromide (SPIRIVA RESPIMAT) 2.5 mcg/actuation inhaler^Inhale 2 Puffs as instructed once daily.^Disp: 1 Inhaler^Rfl: 5 nitroglycerin sublingual (NITROQUICK) 0.4 mg SL tablet^Dissolve 1 tablet under the tongue as needed. FOR CHEST PAIN. IF NO RELIEF CALL 911^Disp: 25 tablet^Rfl: 1 fluocinonide (LIDEX) 0.05 % ointment^Apply to affected area on leg twice daily as needed. Cycle 2 weeks on, 1 week off. Not for face, armpits, or groin^Disp: 60 g^Rfl: 0 ketoconazole (NIZORAL) 2 % shampoo^Wash face and scalp daily as needed^Disp: 120 mL^Rfl: 5 hydrocortisone 2.5 % cream^Apply to scaly patches on face two times daily as needed for flares. Use 2 weeks on 1 week off^Disp: 30 g^Rfl: 2 ketoconazole (NIZORAL) 2 % cream^Apply to affected and groin two times daily for maintenance^Disp: 60 g^Rfl: 5 albuterol (PROVENTIL) 2.5 mg /3 mL (0.083 %) nebulizer solution^Use 3 mL via nebulizer every 4 hours as needed for wheezing/shortness of breath. Use over 5-15minutes.^Disp: 3 mL^Rfl: 0 Nebulizer^NEBULIZER FOR HOME USE.^Disp: 1 Kit^Rfl: 0 FAMILY HISTORY Problem Relation Age of Onset other (Pneumonia) Mother age 72 other (aneursm repair) Mother Prostate Cancer Father CArdiomegaly ( age 72) Aneurysm Brother Lung Cancer Brother Lung Cancer ( age 60's) Heart Brother HI x 2 other (aneurysm repair) Brother Social History Tobacco Use Smoking status: Every Day Packs/day: 0.50 Years: 46.00 Pack years: 23.00 Types: Cigarettes Start date: 07/08/1973 Smokeless tobacco: Never Tobacco comments: one ppd in past Vaping Use Vaping Use: Never used Substance Use Topics Alcohol use: No Drug use: Yes Types: Marijuana Comment: Off and on. PHYSICAL EXAM BP 118/72 Pulse 98 Resp 20 Wt 100.7 kg (222 lb) BMI 32.78 kg/m General Appearance: well appearing, in no acute distress, alert Lungs: Lungs clear to auscultation. No wheezing, rhonchi, rales. Heart: RRR without murmur, gallop, or rubs. No ectopy ASSESSMENT/PLAN: 1. Primary hypertension - ICD9: 401.9, ICD10: I10 - good control - Continue current medication(s) - Recommended regular aerobic exercise. - Recommend home blood pressure monitoring, to bring results in on next visit - Goal of BP <130/80 Prescription instructions reviewed with patient as applicable. Potential red flag symptoms discussed with the patient. Reviewed appropriate action plan to take if red flag symptoms occur. Patient agreeable to treatment plan Kamini Ivy APRN.CNP documented in this encounter [facility] 05-28-2022 Instructions Tg Albrecht MD - 05/28/2022 2:49 PM EST Lupus documented in this encounter [facility] 05-28-2022 History of Present illness Narrative Images from the original note were not included. . Respiratory [place] Note Patient name: Jennie Mccarthy PCP: Levon Corral MD CC: follow-up HPI: Jennie Mccarthy 61 year old obese male smoker with PMH significant for VANIA, AF/flutter, CAD, AAA, GERD, HTN, hypothyroidism, PE, bullous emphysema, ILD and mild COPD. Current therapy with Spiriva and as needed albuterol. At [facility], recommended smoking cessation and ordered autoimmune serologies. Positive BRISSA with dsDNA but negative [place], SS-A. No systemic symptoms to suggest SLE. ILD not a typical manifestation of SLE. From respiratory standpoint, denies significant cough, sputum, SOB, chest pain, wheezing. He continues to smoke with no desire to quit. Albuterol as needed. No need for inhaled therapy. DATA: PFT 10/2021: Labs: Component Ref Range & Units 6 mo ago BRISSA Negative Positive Abnormal Component Ref Range & Units 6 mo ago DNA Antibody <30 IU/mL 943.37 High PAST MEDICAL HISTORY Diagnosis Date AAA (abdominal aortic aneurysm) 03/02/2009 Atrial fibrillation (HCC) Atrial flutter (HCC) 08/20/2011 Chronic cholecystitis Coronary artery disease DDD (degenerative disc disease), lumbar 02/05/2014 Emphysematous bleb (HCC) 05/28/2007 Right upper lung. Erectile dysfunction 02/27/2011 Esophageal reflux Gastroesophageal reflux Fatty liver GYNECOMASTIA 11/08/2006 Hemorrhage of rectum and anus 12/25/2009 bleeding hemorrhoids Hiatal hernia Hypertension 06/12/2013 Obesity, unspecified 11/04/2008 Obstructive sleep apnea CPAP Other and unspecified hyperlipidemia 11/05/2006 Other emphysema (HCC) Emphysema Pulmonary embolism (HCC) 05/19/2011 Substance abuse (HCC) Tobacco use disorder 10/24/2006 ex-smoker Unspecified constipation Constipation Unspecified hypothyroidism 11/05/2006 ALLERGIES Allergen Reactions Prednisone Itching gabapentin (NEURONTIN) 300 mg capsule^Take 2 capsules by mouth twice daily for 180 days.^Disp: 120 capsule^Rfl: 5 apixaban (ELIQUIS) 5 mg tab(s)^Take 1 tablet by mouth twice daily.^Disp: 180 tablet^Rfl: 3 lisinopril (ZESTRIL, PRINIVIL) 40 mg tablet^Take 1 tablet by mouth once daily.^Disp: 90 tablet^Rfl: 3 levothyroxine (SYNTHROID) 137 mcg tablet^Take 1 tablet by mouth once daily. Take on empty stomach^Disp: 90 tablet^Rfl: 3 atorvastatin (LIPITOR) 80 mg tablet^Take 1 tablet by mouth daily at bedtime. For cholesterol.^Disp: 90 tablet^Rfl: 3 albuterol HFA (VENTOLIN HFA) 90 mcg/actuation inhaler^Inhale 2 Puffs as instructed every 4 hours as needed.^Disp: 18 g^Rfl: 3 hydroCHLOROthiazide (HYDRODIURIL, ESIDRIX) 12.5 mg capsule^Take 1 capsule by mouth once daily.^Disp: 90 capsule^Rfl: 3 tiotropium bromide (SPIRIVA RESPIMAT) 2.5 mcg/actuation inhaler^Inhale 2 Puffs as instructed once daily.^Disp: 1 Inhaler^Rfl: 5 nitroglycerin sublingual (NITROQUICK) 0.4 mg SL tablet^Dissolve 1 tablet under the tongue as needed. FOR CHEST PAIN. IF NO RELIEF CALL 911^Disp: 25 tablet^Rfl: 1 fluocinonide (LIDEX) 0.05 % ointment^Apply to affected area on leg twice daily as needed. Cycle 2 weeks on, 1 week off. Not for face, armpits, or groin^Disp: 60 g^Rfl: 0 ketoconazole (NIZORAL) 2 % shampoo^Wash face and scalp daily as needed^Disp: 120 mL^Rfl: 5 hydrocortisone 2.5 % cream^Apply to scaly patches on face two times daily as needed for flares. Use 2 weeks on 1 week off^Disp: 30 g^Rfl: 2 ketoconazole (NIZORAL) 2 % cream^Apply to affected and groin two times daily for maintenance^Disp: 60 g^Rfl: 5 albuterol (PROVENTIL) 2.5 mg /3 mL (0.083 %) nebulizer solution^Use 3 mL via nebulizer every 4 hours as needed for wheezing/shortness of breath. Use over 5-15minutes.^Disp: 3 mL^Rfl: 0 Nebulizer^NEBULIZER FOR HOME USE.^Disp: 1 Kit^Rfl: 0 Social History Tobacco Use Smoking status: Every Day Packs/day: 0.50 Years: 46.00 Pack years: 23.00 Types: Cigarettes Start date: 07/08/1973 Smokeless tobacco: Never Tobacco comments: one ppd in past Vaping Use Vaping Use: Never used Substance Use Topics Alcohol use: No Drug use: Yes Types: Marijuana Comment: Off and on. PMH, Social history, family history and surgical history reviewed and updated in EMR REVIEW OF SYSTEMS: CONSTITUTIONAL: No fevers, chills, nightsweats, unintended weight loss CARDIOVASCULAR: No chest pain,palpitations, orthopnea, PND, edema. PULM: See HPI GI: No dysphagia/odynophagia, problematic reflux, constipation, diarrhea NEURO: No new balance problems, peripheral weakness/paresthesias or numbness of concern. PSY: No concerns regarding depression, anxiety INTEGUMENTARY: No new skin changes or rashes PHYSICAL EXAMINATION: BP 135/82 Pulse 61 Resp 16 Ht 5' 9 (1.75m) Wt 224 lb 6.4 oz (101.8kg) SpO2 96% BMI 33.12 kg/(m^2). General Appearance: Obese male, NAD Skin: Skin color, texture, turgor normal, no suspicious rashes or lesions. Head: Normocephalic, no masses, lesions, tenderness or abnormalities. Eyes: Sclera, conjunctiva normal Oropharynx: upper plate, no oral lesions or thrush Neck: No JVD, no masses, no adenopathy Lungs: Not labored, normal to percussion, no wheezes or crackles Heart: RRR, no murmurs or gallops Extremities: No edema. Mild clubbing Musculoskeletal: No joint deformities or effusions Assessment/Plan: ILD -Doubt SLE but will need rheumatology consultation -Due for chest CT in October Bullous emphysema -Stable bullous disease -Smoking cessation recommended -Continue as needed albuterol Cigarette smoker -Current smoker with sequelae of emphysema -Smoking cessation recommended Tg Albrecht MD [facility] documented in this encounter [facility] 05-23-2022 Miscellaneous Notes Patient has been identified by name and date of : Yes Patient phones for refill(s): Requested Prescriptions Pending Prescriptions Disp Refills gabapentin (NEURONTIN) 300 mg capsule 120 capsule 5 Sig: Take 2 capsules by mouth twice daily for 180 days. apixaban (ELIQUIS) 5 mg tab(s) 180 tablet 3 Sig: Take 1 tablet by mouth twice daily. lisinopril (ZESTRIL, PRINIVIL) 40 mg tablet 90 tablet 3 Sig: Take 1 tablet by mouth once daily. levothyroxine (SYNTHROID) 137 mcg tablet 90 tablet 3 Sig: Take 1 tablet by mouth once daily. Take on empty stomach atorvastatin (LIPITOR) 80 mg tablet 90 tablet 3 Sig: Take 1 tablet by mouth daily at bedtime. For cholesterol. Date of last office visit with pcp: 03-28-22. Next appt: 05-28-22 Last 2 Encounter Wt Readings: Date: Wt: 03/28/2022 98.9 kg (218 lb) 02/19/2022 100.2 kg (221 lb) Previous labs/tests for medication: Thyroid: TSH Date Value 10/17/2021 2.720 mIU/L 03/24/2021 1.010 uU/mL Cholesterol: HDL Cholesterol (mg/dL) Date Value 03/24/2021 24 LDL Cholesterol (mg/dL) Date Value 03/24/2021 138 ALT (U/L) Date Value 03/24/2021 28 Non HDL Cholesterol, Nonfasting (mg/dL) Date Value 03/12/2018 177 Non HDL Cholesterol (mg/dL) Date Value 03/24/2021 158 Blood Pressure: BUN (mg/dL) Date Value 10/17/2021 17 03/24/2021 15 Sodium (mmol/L) Date Value 10/17/2021 141 03/24/2021 139 Last 1 Encounter BP Readings: Date: BP: 03/28/2022 148/82 Blood Counts: WBC (k/uL) Date Value 10/17/2021 10.77 03/24/2021 10.32 RBC (m/uL) Date Value 10/17/2021 5.16 03/24/2021 5.00 Hematocrit (%) Date Value 10/17/2021 49.3 03/24/2021 48.6 Hemoglobin (g/dL) Date Value 10/17/2021 15.9 03/24/2021 15.7 Platelet Count (k/uL) Date Value 10/17/2021 239 03/24/2021 228 Liver Function: ALT (U/L) Date Value 03/24/2021 28 AST (U/L) Date Value 03/24/2021 40 Please advise. Thank you. Zulma Stack RN documented in this encounter [facility] 05-09-2022 History of Present illness Narrative INSIGHT CDM TELEPHONIC OUTREACH Provider Action/FYI: Back injection 05/17 Contact made with patient: Yes Patient identified by name and . Discussed care with patient It s nice talking to you again. As a reminder, this is our bi-weekly check-in where I will be asking you questions about your health. This will only take a few minutes of your time. Is this a good time? Yes Symptoms What Chronic Disease(s) does the patient have: COPD Do you check your blood pressures at home? No Do you have new or worse shortness of breath with activity? No Baseline: SOB with exertion Do you have new or worsening cough? No daily cough d/t smoking Do you have new or worsening wheezing? No Do you need to use your rescue (Albuterol) inhaler or nebulizer more often than normal? No Baseline: Albuterol inhaler- PRN Nebulizer- PRN Are you having any other symptoms that your PCP needs to know about? No Symptom Escalation The patient required an escalation for symptom(s)? No Medications Do you have any questions about taking your medication or which medications you should be on? No Do you need any medication refills at this time, including any of the medications you might take only when needed? No Social We would like to make sure you have what you need so that your basic needs are met- including your personal safety, food, housing and medications? Would you like to speak with a social work sales team recruiter to help give you support for any of these needs? No It can be normal to feel anxious or down during a time like this. Would you like to talk to a mental health professional about how you have been feeling? No Closing Thank you for taking the time to talk with me today. We want to work with you to ensure that we are keeping your medical condition(s) well-controlled and to keep you healthy and out of the doctor's office or hospital. It s also not too late for me to sign you up for automated weekly questionnaires through [employer]. This is an easy way for us to stay connected each week. Are you interested? No, I understand. We can always sign you up in the future if you change your mind. Just as a reminder, will continue to call you every other week to check in on your health. Our calls should take 10-15 minutes or less. Remember, if you have concerns in between our calls, please call your PCP's office right away. Thank you. Enter next patient outreach date for two weeks on the same day of the week as today in the Track Pt Outreach and End outreach. documented in this encounter [facility] 04-19-2022 Miscellaneous Notes Patient contacted via telephone regarding upcoming NEW patient appointment with Dr. Shields on 04/20/22. Patient informed of the following: This is the [facility] calling regarding your upcoming appointment with Dr. Shields. Have you been evaluated and treated by a [facility] Pain Management provider within the past 3 years? YES - DR. Grayson, KURT: 06/23/20 - ERICKSON is not needed as provider has left the clinic. To avoid a delay in your care, please bring any imaging (such as MRI, CT, XR, etc.) that have been done outside of the [facility] Systems on a disk to be viewed at your appointment. Please be advised that this appointment is a consult only and narcotics will NOT be prescribed. Dr. Shields is primarily an interventional pain management provider. He treats with physical therapy, injections of the spine or joints, and non-narcotic medications. Dr. Shields will not take over and manage any medications that are already being prescribed by another provider. Patient states, See that's the thing right there. They will not give me anything for the pain. Informed patient that Dr. Shields does specialize in spine medicine and will evaluate his back pain tomorrow. Dr. Shields will order any additional images if needed. Informed him that Dr. Shields does not prescribe narcotic/opioids and an injection will not be completed tomorrow, but he will be evaluated for it. Patient verbalized understanding and will keep appointment. documented in this encounter [facility] 03-28-2022 Instructions Kamini Ivy APRN.CNP - 03/28/2022 11:23 AM EDT Start hydrochlorothiazide for blood pressure. Continue with Lisinopril documented in this encounter [facility] 03-28-2022 History of Present illness Narrative CC: Patient presents with: F/U 6 months Immunizations: Flu vaccination HPI Jennie Mccarthy is a 61 year old male who presents today for above. Patient reports chronic low back and right knee pain are worsening. Having trouble sleeping and getting through his day because of the pain. OTC treatments are not helping. No longer very effective. Denies leg weakness, numbness/tingling, bowel/bladder dysfunction. He has been on Gabapentin since 2010, doesn't help. Other previous treatments included PT in 2019, elavil, muscle relaxants, topical NSAID's. He was also on hydrocodone twice a day for years, stopped in 2018 for unknown reasons per patient. MRI 11/10/2020 without significant findings. HTN-Medication changes:No Taking all medications as prescribed: Yes Side effects: No Home BP's: No Denies: headache, chest pain, palpitations, dyspnea, and peripheral edema. Last 3 Encounter BP Readings: Date: BP: 03/28/2022 148/82 02/19/2022 138/86 02/14/2022 142/90 COPD: managed by pulmonology. Chronic cough, wheezing and SOB. No new or worsening symptoms. Next follow-up in May Atrial flutter- taking Eliqiuis as prescribed. No unusual bleeding. REVIEW OF SYSTEMS See HPI PAST MEDICAL HISTORY Diagnosis Date AAA (abdominal aortic aneurysm) (HCC) 03/02/2009 Atrial fibrillation (HCC) Atrial flutter (HCC) 08/20/2011 Chronic cholecystitis Coronary artery disease DDD (degenerative disc disease), lumbar 02/05/2014 Emphysematous bleb (HCC) 05/28/2007 Right upper lung. Erectile dysfunction 02/27/2011 Esophageal reflux Gastroesophageal reflux Fatty liver GYNECOMASTIA 11/08/2006 Hemorrhage of rectum and anus 12/25/2009 bleeding hemorrhoids Hiatal hernia Hypertension 06/12/2013 Obesity, unspecified 11/04/2008 Obstructive sleep apnea CPAP Other and unspecified hyperlipidemia 11/05/2006 Other emphysema (HCC) Emphysema Pulmonary embolism (HCC) 05/19/2011 Substance abuse (HCC) Tobacco use disorder 10/24/2006 ex-smoker Unspecified constipation Constipation Unspecified hypothyroidism 11/05/2006 PAST SURGICAL HISTORY Procedure Laterality Date COLONOSCOPY 2005 COLONOSCOPY FLX DX W/COLLJ SPEC WHEN PFRMD 12/26/09 DIR RPR ANEURYSM ABDOMINAL AORTA 06/12/2013 Abd Aortic Aneurysm Repair, Endovascular ENDOVAS REPAIR ILIAC ANEURYSM Right 01/15/2020 R hypogastric coiling, R common femoral access FOCAL LASER RETINAL TUMOR OS (LEFT EYE) Left 10/2019 Retinal Tear HEMORRHOIDECTOMY INTERNAL RUBBER BAND LIGATIONS 11/2004 LAPS SURG CHOLECYSTECTOMY W/CHOLANGIOGRAPHY 07/07/07 TONSILLECTOMY PRIMARY/SECONDARY <AGE 12 1972 Tonsillectomy ALLERGIES Prednisone MEDICATIONS tiotropium bromide (SPIRIVA RESPIMAT) 2.5 mcg/actuation inhaler^Inhale 2 Puffs as instructed once daily.^Disp: 1 Inhaler^Rfl: 5 gabapentin (NEURONTIN) 300 mg capsule^Take 2 capsules by mouth twice daily for 180 days.^Disp: 120 capsule^Rfl: 5 nitroglycerin sublingual (NITROQUICK) 0.4 mg SL tablet^Dissolve 1 tablet under the tongue as needed. FOR CHEST PAIN. IF NO RELIEF CALL 911^Disp: 25 tablet^Rfl: 1 albuterol HFA (VENTOLIN HFA) 90 mcg/actuation inhaler^Inhale 2 Puffs as instructed every 4 hours as needed.^Disp: 18 g^Rfl: 0 fluocinonide (LIDEX) 0.05 % ointment^Apply to affected area on leg twice daily as needed. Cycle 2 weeks on, 1 week off. Not for face, armpits, or groin^Disp: 60 g^Rfl: 0 ketoconazole (NIZORAL) 2 % shampoo^Wash face and scalp daily as needed^Disp: 120 mL^Rfl: 5 hydrocortisone 2.5 % cream^Apply to scaly patches on face two times daily as needed for flares. Use 2 weeks on 1 week off^Disp: 30 g^Rfl: 2 ketoconazole (NIZORAL) 2 % cream^Apply to affected and groin two times daily for maintenance^Disp: 60 g^Rfl: 5 apixaban (ELIQUIS) 5 mg tab(s)^Take 1 tablet by mouth twice daily.^Disp: 180 tablet^Rfl: 3 lisinopril (ZESTRIL, PRINIVIL) 40 mg tablet^Take 1 tablet by mouth once daily.^Disp: 90 tablet^Rfl: 3 levothyroxine (SYNTHROID) 137 mcg tablet^Take 1 tablet by mouth once daily. Take on empty stomach^Disp: 90 tablet^Rfl: 3 atorvastatin (LIPITOR) 80 mg tablet^Take 1 tablet by mouth daily at bedtime. For cholesterol.^Disp: 90 tablet^Rfl: 3 albuterol (PROVENTIL) 2.5 mg /3 mL (0.083 %) nebulizer solution^Use 3 mL via nebulizer every 4 hours as needed for wheezing/shortness of breath. Use over 5-15minutes.^Disp: 3 mL^Rfl: 0 Nebulizer^NEBULIZER FOR HOME USE.^Disp: 1 Kit^Rfl: 0 FAMILY HISTORY Problem Relation Age of Onset other (Pneumonia) Mother age 72 other (aneursm repair) Mother Prostate Cancer Father CArdiomegaly ( age 72) Aneurysm Brother Lung Cancer Brother Lung Cancer ( age 60's) Heart Brother HI x 2 other (aneurysm repair) Brother Social History Tobacco Use Smoking status: Every Day Packs/day: 0.50 Years: 46.00 Pack years: 23.00 Types: Cigarettes Start date: 07/08/1973 Smokeless tobacco: Never Tobacco comments: one ppd in past Vaping Use Vaping Use: Never used Substance Use Topics Alcohol use: No Drug use: Yes Types: Marijuana Comment: Off and on. PHYSICAL EXAM BP 148/82 (BP Site: Left Arm, BP Position: Sitting, BP Cuff Size: Large Adult) Pulse (!) 56 Temp 36.6 C (97.8 F) (Temporal) Resp 12 Wt 98.9 kg (218 lb) BMI 33.15 kg/m General Appearance: well appearing, in no acute distress, alert Lungs: Lungs clear to auscultation. No wheezing, rhonchi, rales. Heart: RRR without murmur, gallop, or rubs. No ectopy Health maintenance reviewed with patient: ALPHA-1 ANTITRYPSIN DEFICIENCY SCREENING Never done SHINGRIX VACCINE(1 of 2) Never done PNEUMOCOCCAL(2 - PCV) due on 05/25/2012 BP CONTROLLED (<130/80) due on 05/11/2020 DEPRESSION SCREENING due on 03/23/2022 INFLUENZA(1) due on 03/08/2022 LUNG CANCER SCREENING due on 11/03/2022 ANNUAL PCP TEAM CHRONIC DISEASE VISIT due on 02/19/2023 PROSTATE CANCER SCREENING DISCUSSION due on 01/10/2024 DIABETES SCREEN due on 10/17/2024 COLORECTAL CANCER SCREENING due on 11/17/2024 LIPID SCREEN due on 03/24/2026 DTAP,TDAP,TD(3 - Td or Tdap) due on 12/04/2027 SPIROMETRY Completed HEPATITIS C SCREENING Completed HIV SCREENING Completed COVID-19 VACCINE Completed DATA REVIEWED: Most recent labs ASSESSMENT/PLAN: 1. Primary hypertension - ICD9: 401.9, ICD10: I10 (primary diagnosis) - suboptimal control - Continue current medication(s) - Begin HCTZ 12.5 mg daily - Recommended regular aerobic exercise. - Recommend home blood pressure monitoring, to bring results in on next visit - Goal of BP <130/80 2. Chronic bilateral low back pain, unspecified whether sciatica present - ICD9: 724.2, 338.29, ICD10: M54.50, G89.29 Chronic back pain, worsening. Interfering with ADL's. Patient agreeable to pain management consult - CONSULT TO PAIN MGT 3. Hyperlipidemia, unspecified hyperlipidemia type - ICD9: 272.4, ICD10: E78.5 - to be determined upon return of lab results - Continue current medication. - LIPID PANEL BASIC - COMP METABOLIC PANEL 4. Encounter for immunization - ICD9: V03.89, ICD10: Z23 - PNEUMOCOCCAL VACCINE (PREVNAR 20) 5. Need for influenza vaccination - ICD9: V04.81, ICD10: Z23 - INFLUENZA VACCINE QUADRIVALENT 6 MO - 64 YRS IM 6. Paroxysmal atrial flutter (HCC) - ICD9: 427.32, ICD10: I48.92 Stable 7. Chronic obstructive pulmonary disease, unspecified COPD type (HCC) - ICD9: 496, ICD10: J44.9 stable Prescription instructions reviewed with patient as applicable. Potential red flag symptoms discussed with the patient. Reviewed appropriate action plan to take if red flag symptoms occur. Patient agreeable to treatment plan. Kamini Ivy APRN.EDWIN documented in this encounter [facility] 03-05-2022 History of Present illness Narrative [facility] CDM Enrollment Provider Action/FYI: Enrollment and Healthy at Home lvm x 1 and sent [facility] Patient referred by: PCC/PCP referral Contact made with patient: No - Left Message: Hi my name is Vic Martinez RN and I am calling from the [facility] on behalf of your PCP, Levon Corral MD. We are excited to share with you a new program to help you manage your health. Please call me back at [phone] between the hours of 8am-5pm Saturday-Saturday. You will receive another phone call from me within the next two business days. I hope you can take the time to speak with me. (Keep encounter open and attempt 2nd outreach in two business days from today) END OUTREACH documented in this encounter [facility] 02-16-2022 Miscellaneous Notes Patient's notified.Sofie Erazo LPN Please inform patient 2 of 3 stool results have returned. Patient is negative for c. Diff. The enteric panel (which tests for several different pathogens) was negative as well. We are awaiting the return of the O & P. Please follow up with PCP documented in this encounter [facility] 12-25-2021 History of Present illness Narrative This note was created using [employer]. Subjective Jennie Mccarthy is a 61 year old male. He was noted to have significant bradycardia 2 months ago, asymptomatic. His EKG and echo showed no acute findings. Zio showed Mobitz 1 AV block, some VT, some PSVT. He was known to have sick sinus. He described rare episodes of chills lasting a few minutes with no rhyme or reason. He sees Dr. Batres for cardiology but did not recall his last cardiology follow up which was in 2019. Review of Systems Constitutional: Negative. Respiratory: Negative for chest tightness and shortness of breath. Cardiovascular: Negative for chest pain, palpitations and leg swelling. Gastrointestinal: Negative. Neurological: Negative for dizziness, seizures, syncope, light-headedness and headaches. ACTIVE PROBLEM LIST Esophageal Reflux Copd With Exacerbation ([facility]) Hypothyroidism Lung Bullae ([facility]) History of Repair of Aneurysm of Abdominal Aorta Using Endovascular Stent Graft Lumbago Patient Noncompliance Erectile Dysfunction Paroxysmal Atrial Flutter ([facility]) Hyperlipidemia Hypertension VANIA (obstructive sleep apnea) AHI 71 Sciatica Bronchitis Rosacea Iliac Artery Aneurysm, Right ([facility]) Nicotine use disorder, F17.2 Tinea Cruris Impaired Fasting Glucose Obesity, Class I, Bmi 30-34.9 Vitamin D Deficiency Chronic Otitis Externa of Both Ears Ild (Interstitial Lung Disease) ([facility]) Current Outpatient Medications Medication Sig tiotropium bromide (SPIRIVA RESPIMAT) 2.5 mcg/actuation inhaler Inhale 2 Puffs as instructed once daily. gabapentin (NEURONTIN) 300 mg capsule Take 2 capsules by mouth twice daily for 180 days. nitroglycerin sublingual (NITROQUICK) 0.4 mg SL tablet Dissolve 1 tablet under the tongue as needed. FOR CHEST PAIN. IF NO RELIEF CALL 911 albuterol HFA (VENTOLIN HFA) 90 mcg/actuation inhaler Inhale 2 Puffs as instructed every 4 hours as needed. fluocinonide (LIDEX) 0.05 % ointment Apply to affected area on leg twice daily as needed. Cycle 2 weeks on, 1 week off. Not for face, armpits, or groin ketoconazole (NIZORAL) 2 % shampoo Wash face and scalp daily as needed hydrocortisone 2.5 % cream Apply to scaly patches on face two times daily as needed for flares. Use 2 weeks on 1 week off ketoconazole (NIZORAL) 2 % cream Apply to affected and groin two times daily for maintenance apixaban (ELIQUIS) 5 mg tab(s) Take 1 tablet by mouth twice daily. lisinopril (ZESTRIL, PRINIVIL) 40 mg tablet Take 1 tablet by mouth once daily. levothyroxine (SYNTHROID) 137 mcg tablet Take 1 tablet by mouth once daily. Take on empty stomach atorvastatin (LIPITOR) 80 mg tablet Take 1 tablet by mouth daily at bedtime. For cholesterol. albuterol (PROVENTIL) 2.5 mg /3 mL (0.083 %) nebulizer solution Use 3 mL via nebulizer every 4 hours as needed for wheezing/shortness of breath. Use over 5-15minutes. Nebulizer NEBULIZER FOR HOME USE. Current Facility-Administered Medications Medication Dose Route Frequency perflutren lipid microspheres 1.3 mL in NaCl (PF) 0.9% 10 mL injection (DEFINITY) INTRAVENOUS DIRECTED PRN sodium chloride 0.9 % (flush) 10 mL (BD POSIFLUSH) 10 mL INTRAVENOUS DIRECTED PRN Objective BP 128/72 (BP Site: Left Arm, BP Position: Sitting, BP Cuff Size: Large Adult) Pulse 60 Temp 36.6 C (97.9 F) (Temporal Artery) Resp 20 Wt 101.4 kg (223 lb 9.6 oz) BMI 34.00 kg/m Physical Exam Constitutional: General: He is not in acute distress. Appearance: He is not diaphoretic. Cardiovascular: Rate and Rhythm: Normal rate and regular rhythm. Heart sounds: No murmur heard. No gallop. Pulmonary: Effort: No respiratory distress. Breath sounds: Rhonchi present. No wheezing or rales. Abdominal: Tenderness: There is no abdominal tenderness. Musculoskeletal: Right lower leg: No edema. Left lower leg: No edema. Neurological: Mental Status: He is alert. Gait: Gait normal. Test results pertinent to today's visit were reviewed and discussed with the patient. Assessment and Plan 1. Sick sinus syndrome (HCC) - ICD9: 427.81, ICD10: I49.5 (primary diagnosis) Schedule cardiology follow up. 2. Chills without fever - ICD9: 780.64, ICD10: R68.83 Etiology and significance was not clear, infrequent, every 3 or more months., no cardiac awareness. 3. Need for COVID-19 vaccine - ICD9: V04.89, ICD10: Z23 - P[employer]ER[employer] COVID-19 VACCINE, AGE 12+ YR ([facility]) Levon Corral MD documented in this encounter [facility] 12-20-2021 Miscellaneous Notes Patient notified, scheduled with PCP for tomorrow. Anant Delong Ma Left message to call & speak to nurse. Dianelys Cruz LPN Left message to call office. 12/13/2021 8:56 AM Anant Delong Ma Heart monitor abnormal. Please call patient to schedule follow-up to discuss results Kamini Ivy APRN.EDWIN documented in this encounter [facility] 11-07-2021 History of Present illness Narrative Images from the original note were not included. . Respiratory [place] Note Patient name: Jennie Mccarthy PCP: Levon Corral MD CC: COPD HPI: Jennie Mccarthy 61 year old male smoker with PMH significant for obesity, VANIA, AF/flutter, CAD, AAA, GERD, HTN, hypothyroidism, H/O PE and emphysema, GOLD stage 1 COPD. Recently re-established care in pulmonary clinic, being last seen in 2012. Updated PFTs show preserved FEV1 94% predicted, recommended smoking cessation, started Spiriva and ordered esophagram for c/o dysphagia. Did not have esophagram. Updated chest CT shows a stable large bullous lesion, emphysema, resolution of nodules but increased peripheral interstitial infiltrates. From a respiratory standpoint he continues to have dyspnea on exertion and intermittent chest tightness. No current cough or wheezing. No recent upper respiratory infections or emergency department visits. DATA: Labs: Component Ref Range & Units 2 wk ago (10/17/21) WBC 3.70 - 11.00 k/uL 10.77 RBC 4.20 - 6.00 m/uL 5.16 Hemoglobin 13.0 - 17.0 g/dL 15.9 Hematocrit 39.0 - 51.0 % 49.3 MCV 80.0 - 100.0 fL 95.5 MCH 26.0 - 34.0 pg 30.8 MCHC 30.5 - 36.0 g/dL 32.3 RDW-CV 11.5 - 15.0 % 12.9 Platelet Count 150 - 400 k/uL 239 MPV 9.0 - 12.7 fL 10.8 Absolute nRBC <0.01 k/uL <0.01 BUN 9 - 24 mg/dL 17 Creatinine 0.73 - 1.22 mg/dL 0.97 Sodium 136 - 144 mmol/L 141 Potassium 3.7 - 5.1 mmol/L 4.4 Chloride 97 - 105 mmol/L 106 High CO2 22 - 30 mmol/L 26 Anion Gap 9 - 18 mmol/L 9 Calcium, Total 8.5 - 10.2 mg/dL 9.2 Estimated Glomerular Filtration Rate >=60 mL/min/1.73m 88 Imaging / Diagnostic Studies: DATE OF EXAM: Nov 03 2021 12:29PM [facility] [id number] - CT CHEST WO IVCON / EXAMINATION: CHEST CT WITHOUT CONTRAST CLINICAL HISTORY: Follow-up pulmonary nodules. Positive smoking history. COMPARISON: Comparison is made to prior CT chest study dated 06/12/2019 and 08 June 2013 RESULT: Limitations: Absence of IV contrast material Lines, tubes, and devices: None. Lung parenchyma and airways: The central airways remain patent. Diffuse and bilateral chronic interstitial lung changes with diffuse subpleural reticulation and scattered areas of fibrotic scarring. There is centrilobular and paraseptal emphysema present with mild bronchial wall thickening. Large right apical paraseptal bulla measuring 10 x 11 cm is grossly unchanged. Tiny less than 4 mm nodules in the bilateral upper lung zones are not appreciated on today's study. There are no interval developing suspicious pulmonary nodules or dominant masses. Pleural space: No pleural effusion. No pleural thickening. Lower neck, lymph nodes, and mediastinum: The imaged thyroid gland is normal. Shotty fatty replaced bilateral axillary, middle mediastinal and bilateral hilar nodes are grossly stable. No pathologic lymphadenopathy in the supraclavicular, axillary, mediastinal, or hilar regions by size criteria. Heart, pericardium, and thoracic vessels: The thoracic aorta and main pulmonary artery are normal in caliber. The cardiac chambers are normal in size. No coronary artery atherosclerotic calcifications are noted, although the study is not optimized for coronary assessment. No pericardial effusion or thickening. Bones and soft tissues: No destructive bone lesion. Chest wall is unremarkable. Free-flowing anterior osteophytes of the thoracolumbar spine anteriorly with preservation of the disc spaces suggest DISH (diffuse idiopathic skeletal hyperostosis). Upper abdomen: No acute abnormality in the imaged upper abdomen. Partial visualization of a endovascular stent within the proximal abdominal aorta is grossly stable. IMPRESSION: Stable CT scan of the chest with chronic interstitial lung changes and shotty fatty replaced (likely post reactive) lymph nodes which are unchanged I personally reviewed images as well as with the patient and agree with the above assessment PAST MEDICAL HISTORY Diagnosis Date AAA (abdominal aortic aneurysm) (HCC) 03/02/2009 Atrial fibrillation (HCC) Atrial flutter (HCC) 08/20/2011 Chronic cholecystitis Coronary artery disease DDD (degenerative disc disease), lumbar 02/05/2014 Emphysematous bleb (HCC) 05/28/2007 Right upper lung. Erectile dysfunction 02/27/2011 Esophageal reflux Gastroesophageal reflux Fatty liver GYNECOMASTIA 11/08/2006 Hemorrhage of rectum and anus 12/25/2009 bleeding hemorrhoids Hiatal hernia Hypertension 06/12/2013 Obesity, unspecified 11/04/2008 Obstructive sleep apnea CPAP Other and unspecified hyperlipidemia 11/05/2006 Other emphysema (HCC) Emphysema Pulmonary embolism (HCC) 05/19/2011 Substance abuse ([facility]) Tobacco use disorder 10/24/2006 ex-smoker Unspecified constipation Constipation Unspecified hypothyroidism 11/05/2006 ALLERGIES Allergen Reactions Prednisone Itching tiotropium bromide (SPIRIVA RESPIMAT) 2.5 mcg/actuation inhaler Inhale 2 Puffs as instructed once daily. albuterol HFA (VENTOLIN HFA) 90 mcg/actuation inhaler Inhale 2 Puffs as instructed every 4 hours as needed. albuterol (PROVENTIL) 2.5 mg /3 mL (0.083 %) nebulizer solution Use 3 mL via nebulizer every 4 hours as needed for wheezing/shortness of breath. Use over 5-15minutes. gabapentin (NEURONTIN) 300 mg capsule Take 2 capsules by mouth twice daily for 180 days. nitroglycerin sublingual (NITROQUICK) 0.4 mg SL tablet Dissolve 1 tablet under the tongue as needed. FOR CHEST PAIN. IF NO RELIEF CALL 911 fluocinonide (LIDEX) 0.05 % ointment Apply to affected area on leg twice daily as needed. Cycle 2 weeks on, 1 week off. Not for face, armpits, or groin ketoconazole (NIZORAL) 2 % shampoo Wash face and scalp daily as needed hydrocortisone 2.5 % cream Apply to scaly patches on face two times daily as needed for flares. Use 2 weeks on 1 week off ketoconazole (NIZORAL) 2 % cream Apply to affected and groin two times daily for maintenance apixaban (ELIQUIS) 5 mg tab(s) Take 1 tablet by mouth twice daily. lisinopril (ZESTRIL, PRINIVIL) 40 mg tablet Take 1 tablet by mouth once daily. levothyroxine (SYNTHROID) 137 mcg tablet Take 1 tablet by mouth once daily. Take on empty stomach atorvastatin (LIPITOR) 80 mg tablet Take 1 tablet by mouth daily at bedtime. For cholesterol. Nebulizer NEBULIZER FOR HOME USE. Social History Tobacco Use Smoking status: Current Every Day Smoker Packs/day: 0.50 Years: 46.00 Pack years: 23.00 Types: Cigarettes Start date: 07/08/1973 Smokeless tobacco: Never Used Tobacco comment: one ppd in past Vaping Use Vaping Use: Never used Substance Use Topics Alcohol use: No Drug use: Yes Types: Marijuana Comment: Off and on. PMH, Social history, family history and surgical history reviewed and updated in EMR REVIEW OF SYSTEMS: CONSTITUTIONAL: No fevers, chills, nightsweats, unintended weight loss, fatigue HEENT: Denies nasal congestion/sinus symptoms, allergy problems. CARDIOVASCULAR: No chest pain, palpitations, orthopnea, PND, edema. PULM: See HPI GI: Dysphagia both solids and liquids. Hiatal hernia with acid reflux PSY: No concerns regarding depression, anxiety INTEGUMENTARY: No new skin changes or rashes PHYSICAL EXAMINATION: BP 128/80 Pulse 58 Resp 17 Wt 226 lb (102.5kg) SpO2 95% General Appearance: Obese male appears older than chronologic age in no acute distress Skin: Skin color, texture, turgor normal, no suspicious rashes or lesions. Head: Normocephalic, no masses, lesions, tenderness or abnormalities. Eyes: Sclera, conjunctiva normal Oropharynx: Upper plate no thrush or lesions Neck: No JVD, no masses, no adenopathy Lungs: Not labored, normal to percussion, diminished breath sounds, no wheezes or crackles Heart: Regular rate and rhythm, systolic ejection murmur Extremities: Mild clubbing, no edema Assessment/Plan: 1. Large bullous lesion -Pulmonary function tests relatively preserved and no significant compression of normal lung which would warrant bullectomy or endobronchial valve 2. Interstitial lung disease -Chest CT shows some increased early interstitial lung disease compared to last chest imaging -Autoimmune serologies 3. Emphysema -Absolutely needs to quit smoking but patient is not interested -Continue Spiriva and as needed albuterol 4. Current cigarette smoker -Current cigarette smoker for almost 50 years with sequelae of emphysema -Smoking cessation strongly recommended -Will be due for low-dose chest CT for cancer screening in 1 year Tg Albrecht MD Respiratory [place] documented in this encounter [facility] 11-03-2021 History of Present illness Narrative Radiology Service Progress Note PATIENT NAME: Jennie Mccarthy DATE OF SERVICE: November 03, 2021 TIME: 3:19 PM PATIENT IDENTITY VERIFICATION COMPLETED USING TWO (2) IDENTIFIERS: Name and Date of confirmed by patient verbally. FALL SCREENING: Has the patient had 2 falls in the last year or 1 fall with injury or currently using an Ambulatory Assistive Device (Walker, Cane, Wheelchair, Crutches, etc.)? No PATIENT GENDER DATA: Male PATIENT RELEVANT IMPLANT DATA REVIEWED: Not Applicable RADIOLOGY DEPARTMENT: CT; Exam(s) Completed: Chest PERIPHERAL IV DATA: Not applicable SIGNED BY: RT Kavita(R) November 03, 2021 3:19 PM documented in this encounter [facility] 10-24-2021 History of Present illness Narrative PULM FUNCTION SMARTBLOCK: Provider: Tg Albrecht MD Assisting Tech: Aracelis Mann RRT Spirometry: 1 System: [id number] documented in this encounter [facility] 10-03-2021 History of Present illness Narrative This consult is seen at the kind request of Dr. Levon Corral of internal medicine, and my final recommendations will be communicated to the requesting health care provider by way of shared electronic medical record. This note is formatted with the impression and plan first and the history and physical to follow. IMPRESSION 61-year-old male with bilateral diffuse otitis externa causing otorrhea and chronic otorrhea. RECOMMENDATION/PLAN I recommend starting him on ofloxacin and dexamethasone eardrops twice daily for 10 days. I will see him back in 10 days for follow-up. I advised him that he needs to keep his ears dry. Chief Complaint Drainage from the ears History of Present Illness Jennie Mccarthy is a 61 year [id number] presents for evaluation of drainage from his ears. Patient stated that he has chronic drainage from his ears for many years. The most recent episode occurred a few months ago. He reports persistent drainage from both sides. When the drainage gets bad, his hearing gets plugged up. He denies any significant pain in his ears. He has not used any antibiotic drops in his ears. PAST MEDICAL HISTORY Diagnosis Date AAA (abdominal aortic aneurysm) (HCC) 03/02/2009 Atrial fibrillation (HCC) Atrial flutter (HCC) 08/20/2011 Chronic cholecystitis Coronary artery disease DDD (degenerative disc disease), lumbar 02/05/2014 Emphysematous bleb (HCC) 05/28/2007 Right upper lung. Erectile dysfunction 02/27/2011 Esophageal reflux Gastroesophageal reflux Fatty liver GYNECOMASTIA 11/08/2006 Hemorrhage of rectum and anus 12/25/2009 bleeding hemorrhoids Hiatal hernia Hypertension 06/12/2013 Obesity, unspecified 11/04/2008 Obstructive sleep apnea Other and unspecified hyperlipidemia 11/05/2006 Other emphysema (HCC) Emphysema Pulmonary embolism (HCC) 05/19/2011 Substance abuse (HCC) Tobacco use disorder 10/24/2006 ex-smoker Unspecified constipation Constipation Unspecified hypothyroidism 11/05/2006 PAST SURGICAL HISTORY Procedure Laterality Date COLONOSCOPY 2005 COLONOSCOPY FLX DX W/COLLJ SPEC WHEN PFRMD 12/26/09 DIR RPR ANEURYSM ABDOMINAL AORTA 06/12/2013 Abd Aortic Aneurysm Repair, Endovascular ENDOVAS REPAIR ILIAC ANEURYSM Right 01/15/2020 R hypogastric coiling, R common femoral access FOCAL LASER RETINAL TUMOR OS (LEFT EYE) Left 10/2019 Retinal Tear HEMORRHOIDECTOMY INTERNAL RUBBER BAND LIGATIONS 11/2004 LAPS SURG CHOLECYSTECTOMY W/CHOLANGIOGRAPHY 07/07/07 TONSILLECTOMY PRIMARY/SECONDARY <AGE 12 1972 Tonsillectomy FAMILY HISTORY Problem Relation Age of Onset other (Pancreatic Cancer) Father CArdiomegaly ( age 72) other (Pneumonia) Mother age 72 other (aneursm repair) Mother Aneurysm Brother Cancer Brother Lung Cancer ( age 60's) Heart Brother HI x 2 other (aneurysm repair) Brother CURRENT OUTPATIENT MEDICATIONS Current Outpatient Medications on File Prior to Visit Medication Sig gabapentin (NEURONTIN) 300 mg capsule Take 2 capsules by mouth twice daily for 180 days. nitroglycerin sublingual (NITROQUICK) 0.4 mg SL tablet Dissolve 1 tablet under the tongue as needed. FOR CHEST PAIN. IF NO RELIEF CALL 911 albuterol HFA (VENTOLIN HFA) 90 mcg/actuation inhaler Inhale 2 Puffs as instructed every 4 hours as needed. fluocinonide (LIDEX) 0.05 % ointment Apply to affected area on leg twice daily as needed. Cycle 2 weeks on, 1 week off. Not for face, armpits, or groin ketoconazole (NIZORAL) 2 % shampoo Wash face and scalp daily as needed hydrocortisone 2.5 % cream Apply to scaly patches on face two times daily as needed for flares. Use 2 weeks on 1 week off ketoconazole (NIZORAL) 2 % cream Apply to affected and groin two times daily for maintenance apixaban (ELIQUIS) 5 mg tab(s) Take 1 tablet by mouth twice daily. lisinopril (ZESTRIL, PRINIVIL) 40 mg tablet Take 1 tablet by mouth once daily. levothyroxine (SYNTHROID) 137 mcg tablet Take 1 tablet by mouth once daily. Take on empty stomach atorvastatin (LIPITOR) 80 mg tablet Take 1 tablet by mouth daily at bedtime. For cholesterol. albuterol (PROVENTIL) 2.5 mg /3 mL (0.083 %) nebulizer solution Use 3 mL via nebulizer every 4 hours as needed for wheezing/shortness of breath. Use over 5-15minutes. Nebulizer NEBULIZER FOR HOME USE. No current facility-administered medications on file prior to visit. ALLERGIES ALLERGIES Allergen Reactions Prednisone Itching The remainder of the patient's history and review of systems is on the outpatient questionaire which was reviewed by me and placed in the outpatient chart. PHYSICAL EXAMINATION Appearance: General examination of the patient's external face, head and neck reveals no abnormalities. The patient is not retrognathic The patient's voice is strong and clear and they communicate easily. Ears: Bilateral EAC impacted with wet ceruminous debris. There was mild inflammation and swelling of bilateral ear canal. Right TM is erythematous and thickened. Unable to visualize the middle ear space. Left TM was intact letter space appears healthy. Nose: External nasal exam was normal. Throat: There were no lesions to visualization or palpation of the lips, cheeks, gums, floor of mouth, tongue, hard and soft palate, tonsillar pillars or posterior pharyngeal wall. Neck: Palpation of the neck revealed no adenopathy, salivary gland masses or asymmetry, or thyroid masses or enlargement. Preop diagnosis: Cerumen impaction. It cannot be removed without magnification and multiple instrumentations requiring physician skills. Postoperative diagnosis: same CERUMEN REMOVAL: Cerumen was removed under otomicroscopy from the Bilateral ear with instrumentation. Carolina Tapia MD Medical Decision Making: Problems: Moderate: New problem with uncertain prognosis Risk: Moderate: Drug management and Moderate risk from testing/treatment Medical Decision Making Level: 4 - Moderate documented in this encounter [facility] 09-27-2021 Miscellaneous Notes Spoke with patient's . Given message from provider's office. Patient's verbalizes understanding. aL Waters RN No fracture. Signs of residual bruising of the knee. Tylenol as needed. Topical analgesics/anti inflammatory as needed (for eg. Voltaren gel OTC). Patient calling asking for his xray results. Please advise Results XR KNEE GENERAL 4V AP BOTH/PA BOTH/LAT/MERC RIGHT (Order [id number]) Patient Info Patient Name Sex Jennie Burdick ([id number]) Male 1960 09/21/2021 4:47 PM - Radiology, Oru In Impression IMPRESSION: No acute process. Trace right suprapatellar joint fluid. Production Superintendent Hydro: [place] Transcribe Date/Time: Sep 21 2021 4:41P Dictated by : SULTANA CATHERINE MD This examination was interpreted and the report reviewed and electronically signed by: SULTANA CATHERINE MD on Sep 21 2021 4:45PM EST Results-Findings * * *Final Report* * * DATE OF EXAM: Sep 21 2021 4:31PM WOX [id number] - XR KNEE 4V AP/PA BOTH+LAT/OBDULIO RT / PROCEDURE REASON: Acute leg pain, right * * * * Physician Interpretation * * * * EXAMINATION: XR KNEE 4V AP/PA BOTH+LAT/OBDULIO RT HISTORY: Right medial knee pain x 3 weeks following a fall. Acute leg pain, right. TECHNIQUE: XR KNEE 4V AP/PA BOTH+LAT/OBDULIO RT Laterality: RIGHT Number of different views (projections): 4 M: XB_1 COMPARISON: There are no prior relevant examinations available for comparison within the [facility]. RESULT: Standing frontal radiographs of the bilateral knees with bilateral PA flexion views, sunrise views and a lateral view of the right knee show no acute osseous or articular process. There is mild intercondylar and patellar spurring without significant compartmental narrowing. There is trace right suprapatellar joint fluid. 09/21/2021 6:26 PM - Radiology, Oru In Impression IMPRESSION: 1. No acute bony process. 2. Degenerative changes as detailed in report. Production Superintendent Hydro: [place] Transcribe Date/Time: Sep 21 2021 6:22P Dictated by : SULTANA CATHERINE MD This examination was interpreted and the report reviewed and electronically signed by: SULTANA CATHERINE MD on Sep 21 2021 6:24PM EST Results-Findings * * *Final Report* * * DATE OF EXAM: Sep 21 2021 4:31PM WOX [id number] - XR HIP 3V PELV+ AP/LAT RT / PROCEDURE REASON: Acute leg pain, right * * * * Physician Interpretation * * * * EXAMINATION: XR HIP 3V PELV+ AP/LAT RT HISTORY: Right posterior hip pain following a fall x 3 weeks ago. Acute leg pain, right. TECHNIQUE: XR HIP 3V PELV+ AP/LAT RT Laterality: RIGHT Number of different views (projections): 3 M: XB_1 COMPARISON: There are no prior relevant hip examinations available for comparison within the [facility]. Comparison is made to prior CT abdomen pelvis from for February 2021. RESULT: Supine radiograph of the pelvis as well as AP and frogleg views of the right hip demonstrate the visualized bony pelvic ring intact with degenerative enthesophyte. The hips are bilaterally symmetric with degenerative change manifest predominantly as eburnation of the acetabular rims. Joint spaces are preserved. There is no acute bony process. The soft tissues again demonstrate endovascular aortoiliac stents and embolization coils overlying the region of the right sacrum. documented in this encounter [facility] documented as of this encounter (statuses as of 09/27/2021) [facility] History of Past illness Narrative* Problem Noted Date Resolved Date Obesity, Class II, BMI 35-39.9 04/02/2018 0 04/05/2021 Sebaceous cyst 09/03/2016 01/02/2017 Lumbar spondylosis 02/05/2014 12/31/2017 DDD (degenerative disc disease), lumbar 02/06/20 14 12/31/2017 Physical deconditioning, multifactorial dyspnea 02/03/2014 08/27/2016 Obesity 12/30/2013 05/11/2019 Nasal congestion 12/30/2013 08/27/2016 Visual impairment in both eyes 12/30/2013 0 08/27/2016 Atelectasis 06/12/2013 02/03/2014 Overview: Extubated in OR. Plan to wean o2 and pep 06/15/13 SaO2 95% on RA. Hypovolemia 06/12/2013 06/15/2013 Overview: PRN IVF replacment SUMMARY 06/08/2013 02/03/2014 Overview: 52 years old male patient presenting with abdominal pain, acute intramural hematoma in his AAA , his AAA has been progressive now 5.3 cm for surgical vs endovascular repair. History of pulmonary embolism 06/08/2013 Overview: H/o unprovoked PE in 05/2011: on Coumadin (compliance issues in the past) History of smoking 06/08/2013 06/09/2013 Overview: History: 2 ppd for many years, quit 3 years ago Cervicalgia 01/15/2013 04/13/2013 Headache(784.0) 01/15/2013 04/13/2013 Atrial fibrillation 06/03/2012 06/18/2019 Pulmonary embolism 05/19/2011 01/06/2013 Obesity, unspecified 11/04/2008 06/08/2013 Screening for unspecified condition 11/21/2007 11/04/2008 Unspecified sleep apnea 04/03/2007 06/09/20 13 Overview: Non compliant, intolerant of CPAP machine. GYNECOMASTIA 11/08/2006 11/04/2008 Internal hemorrhoids without mention of complica tion 10/24/2006 01/02/2017 Tobacco use disorder 10/24/2006 09/04/2011 documented as of this encounter (statuses as of 10/03/2021) [facility] History of Past illness Narrative* Problem Noted Date Resolved Date Obesity, Class II, BMI 35-39.9 04/02/2018 0 04/05/2021 Sebaceous cyst 09/03/2016 01/02/2017 Lumbar spondylosis 02/05/2014 12/31/2017 DDD (degenerative disc disease), lumbar 02/06/20 14 12/31/2017 Physical deconditioning, multifactorial dyspnea 02/03/2014 08/27/2016 Obesity 12/30/2013 05/11/2019 Nasal congestion 12/30/2013 08/27/2016 Visual impairment in both eyes 12/30/2013 0 08/27/2016 Atelectasis 06/12/2013 02/03/2014 Overview: Extubated in OR. Plan to wean o2 and pep 06/15/13 SaO2 95% on RA. Hypovolemia 06/12/2013 06/15/2013 Overview: PRN IVF replacment SUMMARY 06/08/2013 02/03/2014 Overview: 52 years old male patient presenting with abdominal pain, acute intramural hematoma in his AAA , his AAA has been progressive now 5.3 cm for surgical vs endovascular repair. History of pulmonary embolism 06/08/2013 Overview: H/o unprovoked PE in 05/2011: on Coumadin (compliance issues in the past) History of smoking 06/08/2013 06/09/2013 Overview: History: 2 ppd for many years, quit 3 years ago Cervicalgia 01/15/2013 04/13/2013 Headache(784.0) 01/15/2013 04/13/2013 Atrial fibrillation 06/03/2012 06/18/2019 Pulmonary embolism 05/19/2011 01/06/2013 Obesity, unspecified 11/04/2008 06/08/2013 Screening for unspecified condition 11/21/2007 11/04/2008 Unspecified sleep apnea 04/03/2007 06/09/20 13 Overview: Non compliant, intolerant of CPAP machine. GYNECOMASTIA 11/08/2006 11/04/2008 Internal hemorrhoids without mention of complica tion 10/24/2006 01/02/2017 Tobacco use disorder 10/24/2006 09/04/2011 documented as of this encounter (statuses as of 10/25/2021) [facility] History of Past illness Narrative* Problem Noted Date Resolved Date Obesity, Class II, BMI 35-39.9 04/02/2018 0 04/05/2021 Sebaceous cyst 09/03/2016 01/02/2017 Lumbar spondylosis 02/05/2014 12/31/2017 DDD (degenerative disc disease), lumbar 02/06/20 14 12/31/2017 Physical deconditioning, multifactorial dyspnea 02/03/2014 08/27/2016 Obesity 12/30/2013 05/11/2019 Nasal congestion 12/30/2013 08/27/2016 Visual impairment in both eyes 12/30/2013 0 08/27/2016 Atelectasis 06/12/2013 02/03/2014 Overview: Extubated in OR. Plan to wean o2 and pep 06/15/13 SaO2 95% on RA. Hypovolemia 06/12/2013 06/15/2013 Overview: PRN IVF replacment SUMMARY 06/08/2013 02/03/2014 Overview: 52 years old male patient presenting with abdominal pain, acute intramural hematoma in his AAA , his AAA has been progressive now 5.3 cm for surgical vs endovascular repair. History of pulmonary embolism 06/08/2013 Overview: H/o unprovoked PE in 05/2011: on Coumadin (compliance issues in the past) History of smoking 06/08/2013 06/09/2013 Overview: History: 2 ppd for many years, quit 3 years ago Cervicalgia 01/15/2013 04/13/2013 Headache(784.0) 01/15/2013 04/13/2013 Atrial fibrillation 06/03/2012 06/18/2019 Pulmonary embolism 05/19/2011 01/06/2013 Obesity, unspecified 11/04/2008 06/08/2013 Screening for unspecified condition 11/21/2007 11/04/2008 Unspecified sleep apnea 04/03/2007 06/09/20 13 Overview: Non compliant, intolerant of CPAP machine. GYNECOMASTIA 11/08/2006 11/04/2008 Internal hemorrhoids without mention of complica tion 10/24/2006 01/02/2017 Tobacco use disorder 10/24/2006 09/04/2011 documented as of this encounter (statuses as of 11/04/2021) [facility] History of Past illness Narrative* Problem Noted Date Resolved Date Obesity, Class II, BMI 35-39.9 04/02/2018 0 04/05/2021 Sebaceous cyst 09/03/2016 01/02/2017 Lumbar spondylosis 02/05/2014 12/31/2017 DDD (degenerative disc disease), lumbar 02/06/20 14 12/31/2017 Physical deconditioning, multifactorial dyspnea 02/03/2014 08/27/2016 Obesity 12/30/2013 05/11/2019 Nasal congestion 12/30/2013 08/27/2016 Visual impairment in both eyes 12/30/2013 0 08/27/2016 Atelectasis 06/12/2013 02/03/2014 Overview: Extubated in OR. Plan to wean o2 and pep 06/15/13 SaO2 95% on RA. Hypovolemia 06/12/2013 06/15/2013 Overview: PRN IVF replacment SUMMARY 06/08/2013 02/03/2014 Overview: 52 years old male patient presenting with abdominal pain, acute intramural hematoma in his AAA , his AAA has been progressive now 5.3 cm for surgical vs endovascular repair. History of pulmonary embolism 06/08/2013 Overview: H/o unprovoked PE in 05/2011: on Coumadin (compliance issues in the past) History of smoking 06/08/2013 06/09/2013 Overview: History: 2 ppd for many years, quit 3 years ago Cervicalgia 01/15/2013 04/13/2013 Headache(784.0) 01/15/2013 04/13/2013 Atrial fibrillation 06/03/2012 06/18/2019 Pulmonary embolism 05/19/2011 01/06/2013 Obesity, unspecified 11/04/2008 06/08/2013 Screening for unspecified condition 11/21/2007 11/04/2008 Unspecified sleep apnea 04/03/2007 06/09/20 13 Overview: Non compliant, intolerant of CPAP machine. GYNECOMASTIA 11/08/2006 11/04/2008 Internal hemorrhoids without mention of complica tion 10/24/2006 01/02/2017 Tobacco use disorder 10/24/2006 09/04/2011 documented as of this encounter (statuses as of 11/08/2021) [facility] History of Past illness Narrative* Problem Noted Date Resolved Date Obesity, Class II, BMI 35-39.9 04/02/2018 0 04/05/2021 Sebaceous cyst 09/03/2016 01/02/2017 Lumbar spondylosis 02/05/2014 12/31/2017 DDD (degenerative disc disease), lumbar 02/06/20 14 12/31/2017 Physical deconditioning, multifactorial dyspnea 02/03/2014 08/27/2016 Obesity 12/30/2013 05/11/2019 Nasal congestion 12/30/2013 08/27/2016 Visual impairment in both eyes 12/30/2013 0 08/27/2016 Atelectasis 06/12/2013 02/03/2014 Overview: Extubated in OR. Plan to wean o2 and pep 06/15/13 SaO2 95% on RA. Hypovolemia 06/12/2013 06/15/2013 Overview: PRN IVF replacment SUMMARY 06/08/2013 02/03/2014 Overview: 52 years old male patient presenting with abdominal pain, acute intramural hematoma in his AAA , his AAA has been progressive now 5.3 cm for surgical vs endovascular repair. History of pulmonary embolism 06/08/2013 Overview: H/o unprovoked PE in 05/2011: on Coumadin (compliance issues in the past) History of smoking 06/08/2013 06/09/2013 Overview: History: 2 ppd for many years, quit 3 years ago Cervicalgia 01/15/2013 04/13/2013 Headache(784.0) 01/15/2013 04/13/2013 Atrial fibrillation 06/03/2012 06/18/2019 Pulmonary embolism 05/19/2011 01/06/2013 Obesity, unspecified 11/04/2008 06/08/2013 Screening for unspecified condition 11/21/2007 11/04/2008 Unspecified sleep apnea 04/03/2007 06/09/20 13 Overview: Non compliant, intolerant of CPAP machine. GYNECOMASTIA 11/08/2006 11/04/2008 Internal hemorrhoids without mention of complica tion 10/24/2006 01/02/2017 Tobacco use disorder 10/24/2006 09/04/2011 documented as of this encounter (statuses as of 12/08/2021) [facility] History of Past illness Narrative* Problem Noted Date Resolved Date Obesity, Class II, BMI 35-39.9 04/02/2018 0 04/05/2021 Sebaceous cyst 09/03/2016 01/02/2017 Lumbar spondylosis 02/05/2014 12/31/2017 DDD (degenerative disc disease), lumbar 02/06/20 14 12/31/2017 Physical deconditioning, multifactorial dyspnea 02/03/2014 08/27/2016 Obesity 12/30/2013 05/11/2019 Nasal congestion 12/30/2013 08/27/2016 Visual impairment in both eyes 12/30/2013 0 08/27/2016 Atelectasis 06/12/2013 02/03/2014 Overview: Extubated in OR. Plan to wean o2 and pep 06/15/13 SaO2 95% on RA. Hypovolemia 06/12/2013 06/15/2013 Overview: PRN IVF replacment SUMMARY 06/08/2013 02/03/2014 Overview: 52 years old male patient presenting with abdominal pain, acute intramural hematoma in his AAA , his AAA has been progressive now 5.3 cm for surgical vs endovascular repair. History of pulmonary embolism 06/08/2013 Overview: H/o unprovoked PE in 05/2011: on Coumadin (compliance issues in the past) History of smoking 06/08/2013 06/09/2013 Overview: History: 2 ppd for many years, quit 3 years ago Cervicalgia 01/15/2013 04/13/2013 Headache(784.0) 01/15/2013 04/13/2013 Atrial fibrillation 06/03/2012 06/18/2019 Pulmonary embolism 05/19/2011 01/06/2013 Obesity, unspecified 11/04/2008 06/08/2013 Screening for unspecified condition 11/21/2007 11/04/2008 Unspecified sleep apnea 04/03/2007 06/09/20 13 Overview: Non compliant, intolerant of CPAP machine. GYNECOMASTIA 11/08/2006 11/04/2008 Internal hemorrhoids without mention of complica tion 10/24/2006 01/02/2017 Tobacco use disorder 10/24/2006 09/04/2011 documented as of this encounter (statuses as of 12/20/2021) [facility] History of Past illness Narrative* Problem Noted Date Resolved Date Obesity, Class II, BMI 35-39.9 04/02/2018 0 04/05/2021 Sebaceous cyst 09/03/2016 01/02/2017 Lumbar spondylosis 02/05/2014 12/31/2017 DDD (degenerative disc disease), lumbar 02/06/20 14 12/31/2017 Physical deconditioning, multifactorial dyspnea 02/03/2014 08/27/2016 Obesity 12/30/2013 05/11/2019 Nasal congestion 12/30/2013 08/27/2016 Visual impairment in both eyes 12/30/2013 0 08/27/2016 Atelectasis 06/12/2013 02/03/2014 Overview: Extubated in OR. Plan to wean o2 and pep 06/15/13 SaO2 95% on RA. Hypovolemia 06/12/2013 06/15/2013 Overview: PRN IVF replacment SUMMARY 06/08/2013 02/03/2014 Overview: 52 years old male patient presenting with abdominal pain, acute intramural hematoma in his AAA , his AAA has been progressive now 5.3 cm for surgical vs endovascular repair. History of pulmonary embolism 06/08/2013 Overview: H/o unprovoked PE in 05/2011: on Coumadin (compliance issues in the past) History of smoking 06/08/2013 06/09/2013 Overview: History: 2 ppd for many years, quit 3 years ago Cervicalgia 01/15/2013 04/13/2013 Headache(784.0) 01/15/2013 04/13/2013 Atrial fibrillation 06/03/2012 06/18/2019 Pulmonary embolism 05/19/2011 01/06/2013 Obesity, unspecified 11/04/2008 06/08/2013 Screening for unspecified condition 11/21/2007 11/04/2008 Unspecified sleep apnea 04/03/2007 06/09/20 13 Overview: Non compliant, intolerant of CPAP machine. GYNECOMASTIA 11/08/2006 11/04/2008 Internal hemorrhoids without mention of complica tion 10/24/2006 01/02/2017 Tobacco use disorder 10/24/2006 09/04/2011 documented as of this encounter (statuses as of 12/25/2021) [facility] History of Past illness Narrative* Problem Noted Date Resolved Date Obesity, Class II, BMI 35-39.9 04/02/2018 0 04/05/2021 Sebaceous cyst 09/03/2016 01/02/2017 Lumbar spondylosis 02/05/2014 12/31/2017 DDD (degenerative disc disease), lumbar 02/06/20 14 12/31/2017 Physical deconditioning, multifactorial dyspnea 02/03/2014 08/27/2016 Obesity 12/30/2013 05/11/2019 Nasal congestion 12/30/2013 08/27/2016 Visual impairment in both eyes 12/30/2013 0 08/27/2016 Atelectasis 06/12/2013 02/03/2014 Overview: Extubated in OR. Plan to wean o2 and pep 06/15/13 SaO2 95% on RA. Hypovolemia 06/12/2013 06/15/2013 Overview: PRN IVF replacment SUMMARY 06/08/2013 02/03/2014 Overview: 52 years old male patient presenting with abdominal pain, acute intramural hematoma in his AAA , his AAA has been progressive now 5.3 cm for surgical vs endovascular repair. History of pulmonary embolism 06/08/2013 Overview: H/o unprovoked PE in 05/2011: on Coumadin (compliance issues in the past) History of smoking 06/08/2013 06/09/2013 Overview: History: 2 ppd for many years, quit 3 years ago Cervicalgia 01/15/2013 04/13/2013 Headache(784.0) 01/15/2013 04/13/2013 Atrial fibrillation 06/03/2012 06/18/2019 Pulmonary embolism 05/19/2011 01/06/2013 Obesity, unspecified 11/04/2008 06/08/2013 Screening for unspecified condition 11/21/2007 11/04/2008 Unspecified sleep apnea 04/03/2007 06/09/20 13 Overview: Non compliant, intolerant of CPAP machine. GYNECOMASTIA 11/08/2006 11/04/2008 Internal hemorrhoids without mention of complica tion 10/24/2006 01/02/2017 Tobacco use disorder 10/24/2006 09/04/2011 documented as of this encounter (statuses as of 02/16/2022) [facility] History of Past illness Narrative* Problem Noted Date Resolved Date Obesity, Class II, BMI 35-39.9 04/02/2018 0 04/05/2021 Sebaceous cyst 09/03/2016 01/02/2017 Lumbar spondylosis 02/05/2014 12/31/2017 DDD (degenerative disc disease), lumbar 02/06/20 14 12/31/2017 Physical deconditioning, multifactorial dyspnea 02/03/2014 08/27/2016 Obesity 12/30/2013 05/11/2019 Nasal congestion 12/30/2013 08/27/2016 Visual impairment in both eyes 12/30/2013 0 08/27/2016 Atelectasis 06/12/2013 02/03/2014 Overview: Extubated in OR. Plan to wean o2 and pep 06/15/13 SaO2 95% on RA. Hypovolemia 06/12/2013 06/15/2013 Overview: PRN IVF replacment SUMMARY 06/08/2013 02/03/2014 Overview: 52 years old male patient presenting with abdominal pain, acute intramural hematoma in his AAA , his AAA has been progressive now 5.3 cm for surgical vs endovascular repair. History of pulmonary embolism 06/08/2013 Overview: H/o unprovoked PE in 05/2011: on Coumadin (compliance issues in the past) History of smoking 06/08/2013 06/09/2013 Overview: History: 2 ppd for many years, quit 3 years ago Cervicalgia 01/15/2013 04/13/2013 Headache(784.0) 01/15/2013 04/13/2013 Atrial fibrillation 06/03/2012 06/18/2019 Pulmonary embolism 05/19/2011 01/06/2013 Obesity, unspecified 11/04/2008 06/08/2013 Screening for unspecified condition 11/21/2007 11/04/2008 Unspecified sleep apnea 04/03/2007 06/09/20 13 Overview: Non compliant, intolerant of CPAP machine. GYNECOMASTIA 11/08/2006 11/04/2008 Internal hemorrhoids without mention of complica tion 10/24/2006 01/02/2017 Tobacco use disorder 10/24/2006 09/04/2011 documented as of this encounter (statuses as of 03/05/2022) [facility] History of Past illness Narrative* Problem Noted Date Resolved Date Obesity, Class II, BMI 35-39.9 04/02/2018 0 04/05/2021 Sebaceous cyst 09/03/2016 01/02/2017 Lumbar spondylosis 02/05/2014 12/31/2017 DDD (degenerative disc disease), lumbar 02/06/20 14 12/31/2017 Physical deconditioning, multifactorial dyspnea 02/03/2014 08/27/2016 Obesity 12/30/2013 05/11/2019 Nasal congestion 12/30/2013 08/27/2016 Visual impairment in both eyes 12/30/2013 0 08/27/2016 Atelectasis 06/12/2013 02/03/2014 Overview: Extubated in OR. Plan to wean o2 and pep 06/15/13 SaO2 95% on RA. Hypovolemia 06/12/2013 06/15/2013 Overview: PRN IVF replacment SUMMARY 06/08/2013 02/03/2014 Overview: 52 years old male patient presenting with abdominal pain, acute intramural hematoma in his AAA , his AAA has been progressive now 5.3 cm for surgical vs endovascular repair. History of pulmonary embolism 06/08/2013 Overview: H/o unprovoked PE in 05/2011: on Coumadin (compliance issues in the past) History of smoking 06/08/2013 06/09/2013 Overview: History: 2 ppd for many years, quit 3 years ago Cervicalgia 01/15/2013 04/13/2013 Headache(784.0) 01/15/2013 04/13/2013 Atrial fibrillation 06/03/2012 06/18/2019 Pulmonary embolism 05/19/2011 01/06/2013 Obesity, unspecified 11/04/2008 06/08/2013 Screening for unspecified condition 11/21/2007 11/04/2008 Unspecified sleep apnea 04/03/2007 06/09/20 13 Overview: Non compliant, intolerant of CPAP machine. GYNECOMASTIA 11/08/2006 11/04/2008 Internal hemorrhoids without mention of complica tion 10/24/2006 01/02/2017 Tobacco use disorder 10/24/2006 09/04/2011 documented as of this encounter (statuses as of 03/28/2022) [facility] History of Past illness Narrative* Problem Noted Date Resolved Date Obesity, Class II, BMI 35-39.9 04/02/2018 0 04/05/2021 Sebaceous cyst 09/03/2016 01/02/2017 Lumbar spondylosis 02/05/2014 12/31/2017 DDD (degenerative disc disease), lumbar 02/06/20 14 12/31/2017 Physical deconditioning, multifactorial dyspnea 02/03/2014 08/27/2016 Obesity 12/30/2013 05/11/2019 Nasal congestion 12/30/2013 08/27/2016 Visual impairment in both eyes 12/30/2013 0 08/27/2016 Atelectasis 06/12/2013 02/03/2014 Overview: Extubated in OR. Plan to wean o2 and pep 06/15/13 SaO2 95% on RA. Hypovolemia 06/12/2013 06/15/2013 Overview: PRN IVF replacment SUMMARY 06/08/2013 02/03/2014 Overview: 52 years old male patient presenting with abdominal pain, acute intramural hematoma in his AAA , his AAA has been progressive now 5.3 cm for surgical vs endovascular repair. History of pulmonary embolism 06/08/2013 Overview: H/o unprovoked PE in 05/2011: on Coumadin (compliance issues in the past) History of smoking 06/08/2013 06/09/2013 Overview: History: 2 ppd for many years, quit 3 years ago Cervicalgia 01/15/2013 04/13/2013 Headache(784.0) 01/15/2013 04/13/2013 Atrial fibrillation 06/03/2012 06/18/2019 Pulmonary embolism 05/19/2011 01/06/2013 Obesity, unspecified 11/04/2008 06/08/2013 Screening for unspecified condition 11/21/2007 11/04/2008 Unspecified sleep apnea 04/03/2007 06/09/20 13 Overview: Non compliant, intolerant of CPAP machine. GYNECOMASTIA 11/08/2006 11/04/2008 Internal hemorrhoids without mention of complica tion 10/24/2006 01/02/2017 Tobacco use disorder 10/24/2006 09/04/2011 documented as of this encounter (statuses as of 04/19/2022) [facility] History of Past illness Narrative* Problem Noted Date Resolved Date Obesity, Class II, BMI 35-39.9 04/02/2018 0 04/05/2021 Sebaceous cyst 09/03/2016 01/02/2017 Lumbar spondylosis 02/05/2014 12/31/2017 DDD (degenerative disc disease), lumbar 02/06/20 14 12/31/2017 Physical deconditioning, multifactorial dyspnea 02/03/2014 08/27/2016 Obesity 12/30/2013 05/11/2019 Nasal congestion 12/30/2013 08/27/2016 Visual impairment in both eyes 12/30/2013 0 08/27/2016 Atelectasis 06/12/2013 02/03/2014 Overview: Extubated in OR. Plan to wean o2 and pep 06/15/13 SaO2 95% on RA. Hypovolemia 06/12/2013 06/15/2013 Overview: PRN IVF replacment SUMMARY 06/08/2013 02/03/2014 Overview: 52 years old male patient presenting with abdominal pain, acute intramural hematoma in his AAA , his AAA has been progressive now 5.3 cm for surgical vs endovascular repair. History of pulmonary embolism 06/08/2013 Overview: H/o unprovoked PE in 05/2011: on Coumadin (compliance issues in the past) History of smoking 06/08/2013 06/09/2013 Overview: History: 2 ppd for many years, quit 3 years ago Cervicalgia 01/15/2013 04/13/2013 Headache(784.0) 01/15/2013 04/13/2013 Atrial fibrillation 06/03/2012 06/18/2019 Pulmonary embolism 05/19/2011 01/06/2013 Obesity, unspecified 11/04/2008 06/08/2013 Screening for unspecified condition 11/21/2007 11/04/2008 Unspecified sleep apnea 04/03/2007 06/09/20 13 Overview: Non compliant, intolerant of CPAP machine. GYNECOMASTIA 11/08/2006 11/04/2008 Internal hemorrhoids without mention of complica tion 10/24/2006 01/02/2017 Tobacco use disorder 10/24/2006 09/04/2011 documented as of this encounter (statuses as of 04/20/2022) [facility] History of Past illness Narrative* Problem Noted Date Resolved Date Obesity, Class II, BMI 35-39.9 04/02/2018 0 04/05/2021 Sebaceous cyst 09/03/2016 01/02/2017 Lumbar spondylosis 02/05/2014 12/31/2017 DDD (degenerative disc disease), lumbar 02/06/20 14 12/31/2017 Physical deconditioning, multifactorial dyspnea 02/03/2014 08/27/2016 Obesity 12/30/2013 05/11/2019 Nasal congestion 12/30/2013 08/27/2016 Visual impairment in both eyes 12/30/2013 0 08/27/2016 Atelectasis 06/12/2013 02/03/2014 Overview: Extubated in OR. Plan to wean o2 and pep 06/15/13 SaO2 95% on RA. Hypovolemia 06/12/2013 06/15/2013 Overview: PRN IVF replacment SUMMARY 06/08/2013 02/03/2014 Overview: 52 years old male patient presenting with abdominal pain, acute intramural hematoma in his AAA , his AAA has been progressive now 5.3 cm for surgical vs endovascular repair. History of pulmonary embolism 06/08/2013 Overview: H/o unprovoked PE in 05/2011: on Coumadin (compliance issues in the past) History of smoking 06/08/2013 06/09/2013 Overview: History: 2 ppd for many years, quit 3 years ago Cervicalgia 01/15/2013 04/13/2013 Headache(784.0) 01/15/2013 04/13/2013 Atrial fibrillation 06/03/2012 06/18/2019 Pulmonary embolism 05/19/2011 01/06/2013 Obesity, unspecified 11/04/2008 06/08/2013 Screening for unspecified condition 11/21/2007 11/04/2008 Unspecified sleep apnea 04/03/2007 06/09/20 13 Overview: Non compliant, intolerant of CPAP machine. GYNECOMASTIA 11/08/2006 11/04/2008 Internal hemorrhoids without mention of complica tion 10/24/2006 01/02/2017 Tobacco use disorder 10/24/2006 09/04/2011 documented as of this encounter (statuses as of 04/28/2022) [facility] History of Past illness Narrative* Problem Noted Date Resolved Date Obesity, Class II, BMI 35-39.9 04/02/2018 0 04/05/2021 Sebaceous cyst 09/03/2016 01/02/2017 Lumbar spondylosis 02/05/2014 12/31/2017 DDD (degenerative disc disease), lumbar 02/06/20 14 12/31/2017 Physical deconditioning, multifactorial dyspnea 02/03/2014 08/27/2016 Obesity 12/30/2013 05/11/2019 Nasal congestion 12/30/2013 08/27/2016 Visual impairment in both eyes 12/30/2013 0 08/27/2016 Atelectasis 06/12/2013 02/03/2014 Overview: Extubated in OR. Plan to wean o2 and pep 06/15/13 SaO2 95% on RA. Hypovolemia 06/12/2013 06/15/2013 Overview: PRN IVF replacment SUMMARY 06/08/2013 02/03/2014 Overview: 52 years old male patient presenting with abdominal pain, acute intramural hematoma in his AAA , his AAA has been progressive now 5.3 cm for surgical vs endovascular repair. History of pulmonary embolism 06/08/2013 Overview: H/o unprovoked PE in 05/2011: on Coumadin (compliance issues in the past) History of smoking 06/08/2013 06/09/2013 Overview: History: 2 ppd for many years, quit 3 years ago Cervicalgia 01/15/2013 04/13/2013 Headache(784.0) 01/15/2013 04/13/2013 Atrial fibrillation 06/03/2012 06/18/2019 Pulmonary embolism 05/19/2011 01/06/2013 Obesity, unspecified 11/04/2008 06/08/2013 Screening for unspecified condition 11/21/2007 11/04/2008 Unspecified sleep apnea 04/03/2007 06/09/20 13 Overview: Non compliant, intolerant of CPAP machine. GYNECOMASTIA 11/08/2006 11/04/2008 Internal hemorrhoids without mention of complica tion 10/24/2006 01/02/2017 Tobacco use disorder 10/24/2006 09/04/2011 documented as of this encounter (statuses as of 05/09/2022) [facility] History of Past illness Narrative* Problem Noted Date Resolved Date Obesity, Class II, BMI 35-39.9 04/02/2018 0 04/05/2021 Sebaceous cyst 09/03/2016 01/02/2017 Lumbar spondylosis 02/05/2014 12/31/2017 DDD (degenerative disc disease), lumbar 02/06/20 14 12/31/2017 Physical deconditioning, multifactorial dyspnea 02/03/2014 08/27/2016 Obesity 12/30/2013 05/11/2019 Nasal congestion 12/30/2013 08/27/2016 Visual impairment in both eyes 12/30/2013 0 08/27/2016 Atelectasis 06/12/2013 02/03/2014 Overview: Extubated in OR. Plan to wean o2 and pep 06/15/13 SaO2 95% on RA. Hypovolemia 06/12/2013 06/15/2013 Overview: PRN IVF replacment SUMMARY 06/08/2013 02/03/2014 Overview: 52 years old male patient presenting with abdominal pain, acute intramural hematoma in his AAA , his AAA has been progressive now 5.3 cm for surgical vs endovascular repair. History of pulmonary embolism 06/08/2013 Overview: H/o unprovoked PE in 05/2011: on Coumadin (compliance issues in the past) History of smoking 06/08/2013 06/09/2013 Overview: History: 2 ppd for many years, quit 3 years ago Cervicalgia 01/15/2013 04/13/2013 Headache(784.0) 01/15/2013 04/13/2013 Atrial fibrillation 06/03/2012 06/18/2019 Pulmonary embolism 05/19/2011 01/06/2013 Obesity, unspecified 11/04/2008 06/08/2013 Screening for unspecified condition 11/21/2007 11/04/2008 Unspecified sleep apnea 04/03/2007 06/09/20 13 Overview: Non compliant, intolerant of CPAP machine. GYNECOMASTIA 11/08/2006 11/04/2008 Internal hemorrhoids without mention of complica tion 10/24/2006 01/02/2017 Tobacco use disorder 10/24/2006 09/04/2011 documented as of this encounter (statuses as of 05/24/2022) [facility] History of Past illness Narrative* Problem Noted Date Resolved Date Obesity, Class II, BMI 35-39.9 04/02/2018 0 04/05/2021 Sebaceous cyst 09/03/2016 01/02/2017 Lumbar spondylosis 02/05/2014 12/31/2017 DDD (degenerative disc disease), lumbar 02/06/20 14 12/31/2017 Physical deconditioning, multifactorial dyspnea 02/03/2014 08/27/2016 Obesity 12/30/2013 05/11/2019 Nasal congestion 12/30/2013 08/27/2016 Visual impairment in both eyes 12/30/2013 0 08/27/2016 Atelectasis 06/12/2013 02/03/2014 Overview: Extubated in OR. Plan to wean o2 and pep 06/15/13 SaO2 95% on RA. Hypovolemia 06/12/2013 06/15/2013 Overview: PRN IVF replacment SUMMARY 06/08/2013 02/03/2014 Overview: 52 years old male patient presenting with abdominal pain, acute intramural hematoma in his AAA , his AAA has been progressive now 5.3 cm for surgical vs endovascular repair. History of pulmonary embolism 06/08/2013 Overview: H/o unprovoked PE in 05/2011: on Coumadin (compliance issues in the past) History of smoking 06/08/2013 06/09/2013 Overview: History: 2 ppd for many years, quit 3 years ago Cervicalgia 01/15/2013 04/13/2013 Headache(784.0) 01/15/2013 04/13/2013 Atrial fibrillation 06/03/2012 06/18/2019 Pulmonary embolism 05/19/2011 01/06/2013 Obesity, unspecified 11/04/2008 06/08/2013 Screening for unspecified condition 11/21/2007 11/04/2008 Unspecified sleep apnea 04/03/2007 06/09/20 13 Overview: Non compliant, intolerant of CPAP machine. GYNECOMASTIA 11/08/2006 11/04/2008 Internal hemorrhoids without mention of complica tion 10/24/2006 01/02/2017 Tobacco use disorder 10/24/2006 09/04/2011 documented as of this encounter (statuses as of 05/28/2022) [facility] History of Past illness Narrative* Problem Noted Date Resolved Date Obesity, Class II, BMI 35-39.9 04/02/2018 0 04/05/2021 Sebaceous cyst 09/03/2016 01/02/2017 Lumbar spondylosis 02/05/2014 12/31/2017 DDD (degenerative disc disease), lumbar 02/06/20 14 12/31/2017 Physical deconditioning, multifactorial dyspnea 02/03/2014 08/27/2016 Obesity 12/30/2013 05/11/2019 Nasal congestion 12/30/2013 08/27/2016 Visual impairment in both eyes 12/30/2013 0 08/27/2016 Atelectasis 06/12/2013 02/03/2014 Overview: Extubated in OR. Plan to wean o2 and pep 06/15/13 SaO2 95% on RA. Hypovolemia 06/12/2013 06/15/2013 Overview: PRN IVF replacment SUMMARY 06/08/2013 02/03/2014 Overview: 52 years old male patient presenting with abdominal pain, acute intramural hematoma in his AAA , his AAA has been progressive now 5.3 cm for surgical vs endovascular repair. History of pulmonary embolism 06/08/2013 Overview: H/o unprovoked PE in 05/2011: on Coumadin (compliance issues in the past) History of smoking 06/08/2013 06/09/2013 Overview: History: 2 ppd for many years, quit 3 years ago Cervicalgia 01/15/2013 04/13/2013 Headache(784.0) 01/15/2013 04/13/2013 Atrial fibrillation 06/03/2012 06/18/2019 Pulmonary embolism 05/19/2011 01/06/2013 Obesity, unspecified 11/04/2008 06/08/2013 Screening for unspecified condition 11/21/2007 11/04/2008 Unspecified sleep apnea 04/03/2007 06/09/20 13 Overview: Non compliant, intolerant of CPAP machine. GYNECOMASTIA 11/08/2006 11/04/2008 Internal hemorrhoids without mention of complica tion 10/24/2006 01/02/2017 Tobacco use disorder 10/24/2006 09/04/2011 documented as of this encounter (statuses as of 05/29/2022) [facility] History of Past illness Narrative* Problem Noted Date Resolved Date Obesity, Class II, BMI 35-39.9 04/02/2018 0 04/05/2021 Sebaceous cyst 09/03/2016 01/02/2017 Lumbar spondylosis 02/05/2014 12/31/2017 DDD (degenerative disc disease), lumbar 02/06/20 14 12/31/2017 Physical deconditioning, multifactorial dyspnea 02/03/2014 08/27/2016 Obesity 12/30/2013 05/11/2019 Nasal congestion 12/30/2013 08/27/2016 Visual impairment in both eyes 12/30/2013 0 08/27/2016 Atelectasis 06/12/2013 02/03/2014 Overview: Extubated in OR. Plan to wean o2 and pep 06/15/13 SaO2 95% on RA. Hypovolemia 06/12/2013 06/15/2013 Overview: PRN IVF replacment SUMMARY 06/08/2013 02/03/2014 Overview: 52 years old male patient presenting with abdominal pain, acute intramural hematoma in his AAA , his AAA has been progressive now 5.3 cm for surgical vs endovascular repair. History of pulmonary embolism 06/08/2013 Overview: H/o unprovoked PE in 05/2011: on Coumadin (compliance issues in the past) History of smoking 06/08/2013 06/09/2013 Overview: History: 2 ppd for many years, quit 3 years ago Cervicalgia 01/15/2013 04/13/2013 Headache(784.0) 01/15/2013 04/13/2013 Atrial fibrillation 06/03/2012 06/18/2019 Pulmonary embolism 05/19/2011 01/06/2013 Obesity, unspecified 11/04/2008 06/08/2013 Screening for unspecified condition 11/21/2007 11/04/2008 Unspecified sleep apnea 04/03/2007 06/09/20 13 Overview: Non compliant, intolerant of CPAP machine. GYNECOMASTIA 11/08/2006 11/04/2008 Internal hemorrhoids without mention of complica tion 10/24/2006 01/02/2017 Tobacco use disorder 10/24/2006 09/04/2011 documented as of this encounter (statuses as of 05/30/2022) [facility] History of Past illness Narrative* Problem Noted Date Resolved Date Obesity, Class II, BMI 35-39.9 04/02/2018 0 04/05/2021 Sebaceous cyst 09/03/2016 01/02/2017 Lumbar spondylosis 02/05/2014 12/31/2017 DDD (degenerative disc disease), lumbar 02/06/20 14 12/31/2017 Physical deconditioning, multifactorial dyspnea 02/03/2014 08/27/2016 Obesity 12/30/2013 05/11/2019 Nasal congestion 12/30/2013 08/27/2016 Visual impairment in both eyes 12/30/2013 0 08/27/2016 Atelectasis 06/12/2013 02/03/2014 Overview: Extubated in OR. Plan to wean o2 and pep 06/15/13 SaO2 95% on RA. Hypovolemia 06/12/2013 06/15/2013 Overview: PRN IVF replacment SUMMARY 06/08/2013 02/03/2014 Overview: 52 years old male patient presenting with abdominal pain, acute intramural hematoma in his AAA , his AAA has been progressive now 5.3 cm for surgical vs endovascular repair. History of pulmonary embolism 06/08/2013 Overview: H/o unprovoked PE in 05/2011: on Coumadin (compliance issues in the past) History of smoking 06/08/2013 06/09/2013 Overview: History: 2 ppd for many years, quit 3 years ago Cervicalgia 01/15/2013 04/13/2013 Headache(784.0) 01/15/2013 04/13/2013 Atrial fibrillation 06/03/2012 06/18/2019 Pulmonary embolism 05/19/2011 01/06/2013 Obesity, unspecified 11/04/2008 06/08/2013 Screening for unspecified condition 11/21/2007 11/04/2008 Unspecified sleep apnea 04/03/2007 06/09/20 13 Overview: Non compliant, intolerant of CPAP machine. GYNECOMASTIA 11/08/2006 11/04/2008 Internal hemorrhoids without mention of complica tion 10/24/2006 01/02/2017 Tobacco use disorder 10/24/2006 09/04/2011 documented as of this encounter (statuses as of 06/06/2022) [facility] History of Past illness Narrative* Problem Noted Date Resolved Date Obesity, Class II, BMI 35-39.9 04/02/2018 0 04/05/2021 Sebaceous cyst 09/03/2016 01/02/2017 Lumbar spondylosis 02/05/2014 12/31/2017 DDD (degenerative disc disease), lumbar 02/06/20 14 12/31/2017 Physical deconditioning, multifactorial dyspnea 02/03/2014 08/27/2016 Obesity 12/30/2013 05/11/2019 Nasal congestion 12/30/2013 08/27/2016 Visual impairment in both eyes 12/30/2013 0 08/27/2016 Atelectasis 06/12/2013 02/03/2014 Overview: Extubated in OR. Plan to wean o2 and pep 06/15/13 SaO2 95% on RA. Hypovolemia 06/12/2013 06/15/2013 Overview: PRN IVF replacment SUMMARY 06/08/2013 02/03/2014 Overview: 52 years old male patient presenting with abdominal pain, acute intramural hematoma in his AAA , his AAA has been progressive now 5.3 cm for surgical vs endovascular repair. History of pulmonary embolism 06/08/2013 Overview: H/o unprovoked PE in 05/2011: on Coumadin (compliance issues in the past) History of smoking 06/08/2013 06/09/2013 Overview: History: 2 ppd for many years, quit 3 years ago Cervicalgia 01/15/2013 04/13/2013 Headache(784.0) 01/15/2013 04/13/2013 Atrial fibrillation 06/03/2012 06/18/2019 Pulmonary embolism 05/19/2011 01/06/2013 Obesity, unspecified 11/04/2008 06/08/2013 Screening for unspecified condition 11/21/2007 11/04/2008 Unspecified sleep apnea 04/03/2007 06/09/20 13 Overview: Non compliant, intolerant of CPAP machine. GYNECOMASTIA 11/08/2006 11/04/2008 Internal hemorrhoids without mention of complica tion 10/24/2006 01/02/2017 Tobacco use disorder 10/24/2006 09/04/2011 documented as of this encounter (statuses as of 06/21/2022) [facility] History of Past illness Narrative* Problem Noted Date Resolved Date Obesity, Class II, BMI 35-39.9 04/02/2018 0 04/05/2021 Sebaceous cyst 09/03/2016 01/02/2017 Lumbar spondylosis 02/05/2014 12/31/2017 DDD (degenerative disc disease), lumbar 02/06/20 14 12/31/2017 Physical deconditioning, multifactorial dyspnea 02/03/2014 08/27/2016 Obesity 12/30/2013 05/11/2019 Nasal congestion 12/30/2013 08/27/2016 Visual impairment in both eyes 12/30/2013 0 08/27/2016 Atelectasis 06/12/2013 02/03/2014 Overview: Extubated in OR. Plan to wean o2 and pep 06/15/13 SaO2 95% on RA. Hypovolemia 06/12/2013 06/15/2013 Overview: PRN IVF replacment SUMMARY 06/08/2013 02/03/2014 Overview: 52 years old male patient presenting with abdominal pain, acute intramural hematoma in his AAA , his AAA has been progressive now 5.3 cm for surgical vs endovascular repair. History of pulmonary embolism 06/08/2013 Overview: H/o unprovoked PE in 05/2011: on Coumadin (compliance issues in the past) History of smoking 06/08/2013 06/09/2013 Overview: History: 2 ppd for many years, quit 3 years ago Cervicalgia 01/15/2013 04/13/2013 Headache(784.0) 01/15/2013 04/13/2013 Atrial fibrillation 06/03/2012 06/18/2019 Pulmonary embolism 05/19/2011 01/06/2013 Obesity, unspecified 11/04/2008 06/08/2013 Screening for unspecified condition 11/21/2007 11/04/2008 Unspecified sleep apnea 04/03/2007 06/09/20 13 Overview: Non compliant, intolerant of CPAP machine. GYNECOMASTIA 11/08/2006 11/04/2008 Internal hemorrhoids without mention of complica tion 10/24/2006 01/02/2017 Tobacco use disorder 10/24/2006 09/04/2011 documented as of this encounter (statuses as of 06/29/2022) [facility] History of Past illness Narrative* Problem Noted Date Resolved Date Obesity, Class II, BMI 35-39.9 04/02/2018 0 04/05/2021 Sebaceous cyst 09/03/2016 01/02/2017 Lumbar spondylosis 02/05/2014 12/31/2017 DDD (degenerative disc disease), lumbar 02/06/20 14 12/31/2017 Physical deconditioning, multifactorial dyspnea 02/03/2014 08/27/2016 Obesity 12/30/2013 05/11/2019 Nasal congestion 12/30/2013 08/27/2016 Visual impairment in both eyes 12/30/2013 0 08/27/2016 Atelectasis 06/12/2013 02/03/2014 Overview: Extubated in OR. Plan to wean o2 and pep 06/15/13 SaO2 95% on RA. Hypovolemia 06/12/2013 06/15/2013 Overview: PRN IVF replacment SUMMARY 06/08/2013 02/03/2014 Overview: 52 years old male patient presenting with abdominal pain, acute intramural hematoma in his AAA , his AAA has been progressive now 5.3 cm for surgical vs endovascular repair. History of pulmonary embolism 06/08/2013 Overview: H/o unprovoked PE in 05/2011: on Coumadin (compliance issues in the past) History of smoking 06/08/2013 06/09/2013 Overview: History: 2 ppd for many years, quit 3 years ago Cervicalgia 01/15/2013 04/13/2013 Headache(784.0) 01/15/2013 04/13/2013 Atrial fibrillation 06/03/2012 06/18/2019 Pulmonary embolism 05/19/2011 01/06/2013 Obesity, unspecified 11/04/2008 06/08/2013 Screening for unspecified condition 11/21/2007 11/04/2008 Unspecified sleep apnea 04/03/2007 06/09/20 13 Overview: Non compliant, intolerant of CPAP machine. GYNECOMASTIA 11/08/2006 11/04/2008 Internal hemorrhoids without mention of complica tion 10/24/2006 01/02/2017 Tobacco use disorder 10/24/2006 09/04/2011 documented as of this encounter (statuses as of 07/08/2022) [facility] History of Past illness Narrative* Problem Noted Date Resolved Date Obesity, Class II, BMI 35-39.9 04/02/2018 0 04/05/2021 Sebaceous cyst 09/03/2016 01/02/2017 Lumbar spondylosis 02/05/2014 12/31/2017 DDD (degenerative disc disease), lumbar 02/06/20 14 12/31/2017 Physical deconditioning, multifactorial dyspnea 02/03/2014 08/27/2016 Obesity 12/30/2013 05/11/2019 Nasal congestion 12/30/2013 08/27/2016 Visual impairment in both eyes 12/30/2013 0 08/27/2016 Atelectasis 06/12/2013 02/03/2014 Overview: Extubated in OR. Plan to wean o2 and pep 06/15/13 SaO2 95% on RA. Hypovolemia 06/12/2013 06/15/2013 Overview: PRN IVF replacment SUMMARY 06/08/2013 02/03/2014 Overview: 52 years old male patient presenting with abdominal pain, acute intramural hematoma in his AAA , his AAA has been progressive now 5.3 cm for surgical vs endovascular repair. History of pulmonary embolism 06/08/2013 Overview: H/o unprovoked PE in 05/2011: on Coumadin (compliance issues in the past) History of smoking 06/08/2013 06/09/2013 Overview: History: 2 ppd for many years, quit 3 years ago Cervicalgia 01/15/2013 04/13/2013 Headache(784.0) 01/15/2013 04/13/2013 Atrial fibrillation 06/03/2012 06/18/2019 Pulmonary embolism 05/19/2011 01/06/2013 Obesity, unspecified 11/04/2008 06/08/2013 Screening for unspecified condition 11/21/2007 11/04/2008 Unspecified sleep apnea 04/03/2007 06/09/20 13 Overview: Non compliant, intolerant of CPAP machine. GYNECOMASTIA 11/08/2006 11/04/2008 Internal hemorrhoids without mention of complica tion 10/24/2006 01/02/2017 Tobacco use disorder 10/24/2006 09/04/2011 documented as of this encounter (statuses as of 07/10/2022) [facility] History of Past illness Narrative* Problem Noted Date Resolved Date Obesity, Class II, BMI 35-39.9 04/02/2018 0 04/05/2021 Sebaceous cyst 09/03/2016 01/02/2017 Lumbar spondylosis 02/05/2014 12/31/2017 DDD (degenerative disc disease), lumbar 02/06/20 14 12/31/2017 Physical deconditioning, multifactorial dyspnea 02/03/2014 08/27/2016 Obesity 12/30/2013 05/11/2019 Nasal congestion 12/30/2013 08/27/2016 Visual impairment in both eyes 12/30/2013 0 08/27/2016 Atelectasis 06/12/2013 02/03/2014 Overview: Extubated in OR. Plan to wean o2 and pep 06/15/13 SaO2 95% on RA. Hypovolemia 06/12/2013 06/15/2013 Overview: PRN IVF replacment SUMMARY 06/08/2013 02/03/2014 Overview: 52 years old male patient presenting with abdominal pain, acute intramural hematoma in his AAA , his AAA has been progressive now 5.3 cm for surgical vs endovascular repair. History of pulmonary embolism 06/08/2013 Overview: H/o unprovoked PE in 05/2011: on Coumadin (compliance issues in the past) History of smoking 06/08/2013 06/09/2013 Overview: History: 2 ppd for many years, quit 3 years ago Cervicalgia 01/15/2013 04/13/2013 Headache(784.0) 01/15/2013 04/13/2013 Atrial fibrillation 06/03/2012 06/18/2019 Pulmonary embolism 05/19/2011 01/06/2013 Obesity, unspecified 11/04/2008 06/08/2013 Screening for unspecified condition 11/21/2007 11/04/2008 Unspecified sleep apnea 04/03/2007 06/09/20 13 Overview: Non compliant, intolerant of CPAP machine. GYNECOMASTIA 11/08/2006 11/04/2008 Internal hemorrhoids without mention of complica tion 10/24/2006 01/02/2017 Tobacco use disorder 10/24/2006 09/04/2011 documented as of this encounter (statuses as of 08/01/2022) [facility] History of Past illness Narrative* Problem Noted Date Resolved Date Obesity, Class II, BMI 35-39.9 04/02/2018 0 04/05/2021 Sebaceous cyst 09/03/2016 01/02/2017 Lumbar spondylosis 02/05/2014 12/31/2017 DDD (degenerative disc disease), lumbar 02/06/20 14 12/31/2017 Physical deconditioning, multifactorial dyspnea 02/03/2014 08/27/2016 Obesity 12/30/2013 05/11/2019 Nasal congestion 12/30/2013 08/27/2016 Visual impairment in both eyes 12/30/2013 0 08/27/2016 Atelectasis 06/12/2013 02/03/2014 Overview: Extubated in OR. Plan to wean o2 and pep 06/15/13 SaO2 95% on RA. Hypovolemia 06/12/2013 06/15/2013 Overview: PRN IVF replacment SUMMARY 06/08/2013 02/03/2014 Overview: 52 years old male patient presenting with abdominal pain, acute intramural hematoma in his AAA , his AAA has been progressive now 5.3 cm for surgical vs endovascular repair. History of pulmonary embolism 06/08/2013 Overview: H/o unprovoked PE in 05/2011: on Coumadin (compliance issues in the past) History of smoking 06/08/2013 06/09/2013 Overview: History: 2 ppd for many years, quit 3 years ago Cervicalgia 01/15/2013 04/13/2013 Headache(784.0) 01/15/2013 04/13/2013 Atrial fibrillation 06/03/2012 06/18/2019 Pulmonary embolism 05/19/2011 01/06/2013 Obesity, unspecified 11/04/2008 06/08/2013 Screening for unspecified condition 11/21/2007 11/04/2008 Unspecified sleep apnea 04/03/2007 06/09/20 13 Overview: Non compliant, intolerant of CPAP machine. GYNECOMASTIA 11/08/2006 11/04/2008 Internal hemorrhoids without mention of complica tion 10/24/2006 01/02/2017 Tobacco use disorder 10/24/2006 09/04/2011 documented as of this encounter (statuses as of 08/02/2022) [facility] History of Past illness Narrative* Problem Noted Date Resolved Date Obesity, Class II, BMI 35-39.9 04/02/2018 0 04/05/2021 Sebaceous cyst 09/03/2016 01/02/2017 Lumbar spondylosis 02/05/2014 12/31/2017 DDD (degenerative disc disease), lumbar 02/06/20 14 12/31/2017 Physical deconditioning, multifactorial dyspnea 02/03/2014 08/27/2016 Obesity 12/30/2013 05/11/2019 Nasal congestion 12/30/2013 08/27/2016 Visual impairment in both eyes 12/30/2013 0 08/27/2016 Atelectasis 06/12/2013 02/03/2014 Overview: Extubated in OR. Plan to wean o2 and pep 06/15/13 SaO2 95% on RA. Hypovolemia 06/12/2013 06/15/2013 Overview: PRN IVF replacment SUMMARY 06/08/2013 02/03/2014 Overview: 52 years old male patient presenting with abdominal pain, acute intramural hematoma in his AAA , his AAA has been progressive now 5.3 cm for surgical vs endovascular repair. History of pulmonary embolism 06/08/2013 Overview: H/o unprovoked PE in 05/2011: on Coumadin (compliance issues in the past) History of smoking 06/08/2013 06/09/2013 Overview: History: 2 ppd for many years, quit 3 years ago Cervicalgia 01/15/2013 04/13/2013 Headache(784.0) 01/15/2013 04/13/2013 Atrial fibrillation 06/03/2012 06/18/2019 Pulmonary embolism 05/19/2011 01/06/2013 Obesity, unspecified 11/04/2008 06/08/2013 Screening for unspecified condition 11/21/2007 11/04/2008 Unspecified sleep apnea 04/03/2007 06/09/20 13 Overview: Non compliant, intolerant of CPAP machine. GYNECOMASTIA 11/08/2006 11/04/2008 Internal hemorrhoids without mention of complica tion 10/24/2006 01/02/2017 Tobacco use disorder 10/24/2006 09/04/2011 documented as of this encounter (statuses as of 08/16/2022) [facility] History of Past illness Narrative* Problem Noted Date Resolved Date Obesity, Class II, BMI 35-39.9 04/02/2018 0 04/05/2021 Sebaceous cyst 09/03/2016 01/02/2017 Lumbar spondylosis 02/05/2014 12/31/2017 DDD (degenerative disc disease), lumbar 02/06/20 14 12/31/2017 Physical deconditioning, multifactorial dyspnea 02/03/2014 08/27/2016 Obesity 12/30/2013 05/11/2019 Nasal congestion 12/30/2013 08/27/2016 Visual impairment in both eyes 12/30/2013 0 08/27/2016 Atelectasis 06/12/2013 02/03/2014 Overview: Extubated in OR. Plan to wean o2 and pep 06/15/13 SaO2 95% on RA. Hypovolemia 06/12/2013 06/15/2013 Overview: PRN IVF replacment SUMMARY 06/08/2013 02/03/2014 Overview: 52 years old male patient presenting with abdominal pain, acute intramural hematoma in his AAA , his AAA has been progressive now 5.3 cm for surgical vs endovascular repair. History of pulmonary embolism 06/08/2013 Overview: H/o unprovoked PE in 05/2011: on Coumadin (compliance issues in the past) History of smoking 06/08/2013 06/09/2013 Overview: History: 2 ppd for many years, quit 3 years ago Cervicalgia 01/15/2013 04/13/2013 Headache(784.0) 01/15/2013 04/13/2013 Atrial fibrillation 06/03/2012 06/18/2019 Pulmonary embolism 05/19/2011 01/06/2013 Obesity, unspecified 11/04/2008 06/08/2013 Screening for unspecified condition 11/21/2007 11/04/2008 Unspecified sleep apnea 04/03/2007 06/09/20 13 Overview: Non compliant, intolerant of CPAP machine. GYNECOMASTIA 11/08/2006 11/04/2008 Internal hemorrhoids without mention of complica tion 10/24/2006 01/02/2017 Tobacco use disorder 10/24/2006 09/04/2011 documented as of this encounter (statuses as of 09/12/2022) [facility] History of Past illness Narrative* Problem Noted Date Resolved Date Obesity, Class II, BMI 35-39.9 04/02/2018 0 04/05/2021 Sebaceous cyst 09/03/2016 01/02/2017 Lumbar spondylosis 02/05/2014 12/31/2017 DDD (degenerative disc disease), lumbar 02/06/20 14 12/31/2017 Physical deconditioning, multifactorial dyspnea 02/03/2014 08/27/2016 Obesity 12/30/2013 05/11/2019 Nasal congestion 12/30/2013 08/27/2016 Visual impairment in both eyes 12/30/2013 0 08/27/2016 Atelectasis 06/12/2013 02/03/2014 Overview: Extubated in OR. Plan to wean o2 and pep 06/15/13 SaO2 95% on RA. Hypovolemia 06/12/2013 06/15/2013 Overview: PRN IVF replacment SUMMARY 06/08/2013 02/03/2014 Overview: 52 years old male patient presenting with abdominal pain, acute intramural hematoma in his AAA , his AAA has been progressive now 5.3 cm for surgical vs endovascular repair. History of pulmonary embolism 06/08/2013 Overview: H/o unprovoked PE in 05/2011: on Coumadin (compliance issues in the past) History of smoking 06/08/2013 06/09/2013 Overview: History: 2 ppd for many years, quit 3 years ago Cervicalgia 01/15/2013 04/13/2013 Headache(784.0) 01/15/2013 04/13/2013 Atrial fibrillation 06/03/2012 06/18/2019 Pulmonary embolism 05/19/2011 01/06/2013 Obesity, unspecified 11/04/2008 06/08/2013 Screening for unspecified condition 11/21/2007 11/04/2008 Unspecified sleep apnea 04/03/2007 06/09/20 13 Overview: Non compliant, intolerant of CPAP machine. GYNECOMASTIA 11/08/2006 11/04/2008 Internal hemorrhoids without mention of complica tion 10/24/2006 01/02/2017 Tobacco use disorder 10/24/2006 09/04/2011 documented as of this encounter (statuses as of 09/14/2022) [facility] History of Past illness Narrative* Problem Noted Date Resolved Date Obesity, Class II, BMI 35-39.9 04/02/2018 0 04/05/2021 Sebaceous cyst 09/03/2016 01/02/2017 Lumbar spondylosis 02/05/2014 12/31/2017 DDD (degenerative disc disease), lumbar 02/06/20 14 12/31/2017 Physical deconditioning, multifactorial dyspnea 02/03/2014 08/27/2016 Obesity 12/30/2013 05/11/2019 Nasal congestion 12/30/2013 08/27/2016 Visual impairment in both eyes 12/30/2013 0 08/27/2016 Atelectasis 06/12/2013 02/03/2014 Overview: Extubated in OR. Plan to wean o2 and pep 06/15/13 SaO2 95% on RA. Hypovolemia 06/12/2013 06/15/2013 Overview: PRN IVF replacment SUMMARY 06/08/2013 02/03/2014 Overview: 52 years old male patient presenting with abdominal pain, acute intramural hematoma in his AAA , his AAA has been progressive now 5.3 cm for surgical vs endovascular repair. History of pulmonary embolism 06/08/2013 Overview: H/o unprovoked PE in 05/2011: on Coumadin (compliance issues in the past) History of smoking 06/08/2013 06/09/2013 Overview: History: 2 ppd for many years, quit 3 years ago Cervicalgia 01/15/2013 04/13/2013 Headache(784.0) 01/15/2013 04/13/2013 Atrial fibrillation 06/03/2012 06/18/2019 Pulmonary embolism 05/19/2011 01/06/2013 Obesity, unspecified 11/04/2008 06/08/2013 Screening for unspecified condition 11/21/2007 11/04/2008 Unspecified sleep apnea 04/03/2007 06/09/20 13 Overview: Non compliant, intolerant of CPAP machine. GYNECOMASTIA 11/08/2006 11/04/2008 Internal hemorrhoids without mention of complica tion 10/24/2006 01/02/2017 Tobacco use disorder 10/24/2006 09/04/2011 documented as of this encounter (statuses as of 10/05/2022) [facility] History of Past illness Narrative* Problem Noted Date Resolved Date Obesity, Class II, BMI 35-39.9 04/02/2018 0 04/05/2021 Sebaceous cyst 09/03/2016 01/02/2017 Lumbar spondylosis 02/05/2014 12/31/2017 DDD (degenerative disc disease), lumbar 02/06/20 14 12/31/2017 Physical deconditioning, multifactorial dyspnea 02/03/2014 08/27/2016 Obesity 12/30/2013 05/11/2019 Nasal congestion 12/30/2013 08/27/2016 Visual impairment in both eyes 12/30/2013 0 08/27/2016 Atelectasis 06/12/2013 02/03/2014 Overview: Extubated in OR. Plan to wean o2 and pep 06/15/13 SaO2 95% on RA. Hypovolemia 06/12/2013 06/15/2013 Overview: PRN IVF replacment SUMMARY 06/08/2013 02/03/2014 Overview: 52 years old male patient presenting with abdominal pain, acute intramural hematoma in his AAA , his AAA has been progressive now 5.3 cm for surgical vs endovascular repair. History of pulmonary embolism 06/08/2013 Overview: H/o unprovoked PE in 05/2011: on Coumadin (compliance issues in the past) History of smoking 06/08/2013 06/09/2013 Overview: History: 2 ppd for many years, quit 3 years ago Cervicalgia 01/15/2013 04/13/2013 Headache(784.0) 01/15/2013 04/13/2013 Atrial fibrillation 06/03/2012 06/18/2019 Pulmonary embolism 05/19/2011 01/06/2013 Obesity, unspecified 11/04/2008 06/08/2013 Screening for unspecified condition 11/21/2007 11/04/2008 Unspecified sleep apnea 04/03/2007 06/09/20 13 Overview: Non compliant, intolerant of CPAP machine. GYNECOMASTIA 11/08/2006 11/04/2008 Internal hemorrhoids without mention of complica tion 10/24/2006 01/02/2017 Tobacco use disorder 10/24/2006 09/04/2011 documented as of this encounter (statuses as of 10/10/2022) [facility] History of Past illness Narrative* Problem Noted Date Resolved Date Obesity, Class II, BMI 35-39.9 04/02/2018 0 04/05/2021 Sebaceous cyst 09/03/2016 01/02/2017 Lumbar spondylosis 02/05/2014 12/31/2017 DDD (degenerative disc disease), lumbar 02/06/20 14 12/31/2017 Physical deconditioning, multifactorial dyspnea 02/03/2014 08/27/2016 Obesity 12/30/2013 05/11/2019 Nasal congestion 12/30/2013 08/27/2016 Visual impairment in both eyes 12/30/2013 0 08/27/2016 Atelectasis 06/12/2013 02/03/2014 Overview: Extubated in OR. Plan to wean o2 and pep 06/15/13 SaO2 95% on RA. Hypovolemia 06/12/2013 06/15/2013 Overview: PRN IVF replacment SUMMARY 06/08/2013 02/03/2014 Overview: 52 years old male patient presenting with abdominal pain, acute intramural hematoma in his AAA , his AAA has been progressive now 5.3 cm for surgical vs endovascular repair. History of pulmonary embolism 06/08/2013 Overview: H/o unprovoked PE in 05/2011: on Coumadin (compliance issues in the past) History of smoking 06/08/2013 06/09/2013 Overview: History: 2 ppd for many years, quit 3 years ago Cervicalgia 01/15/2013 04/13/2013 Headache(784.0) 01/15/2013 04/13/2013 Atrial fibrillation 06/03/2012 06/18/2019 Pulmonary embolism 05/19/2011 01/06/2013 Obesity, unspecified 11/04/2008 06/08/2013 Screening for unspecified condition 11/21/2007 11/04/2008 Unspecified sleep apnea 04/03/2007 06/09/20 13 Overview: Non compliant, intolerant of CPAP machine. GYNECOMASTIA 11/08/2006 11/04/2008 Internal hemorrhoids without mention of complica tion 10/24/2006 01/02/2017 Tobacco use disorder 10/24/2006 09/04/2011 documented as of this encounter (statuses as of 10/12/2022) [facility] History of Past illness Narrative* Problem Noted Date Resolved Date Obesity, Class II, BMI 35-39.9 04/02/2018 0 04/05/2021 Sebaceous cyst 09/03/2016 01/02/2017 Lumbar spondylosis 02/05/2014 12/31/2017 DDD (degenerative disc disease), lumbar 02/06/20 14 12/31/2017 Physical deconditioning, multifactorial dyspnea 02/03/2014 08/27/2016 Obesity 12/30/2013 05/11/2019 Nasal congestion 12/30/2013 08/27/2016 Visual impairment in both eyes 12/30/2013 0 08/27/2016 Atelectasis 06/12/2013 02/03/2014 Overview: Extubated in OR. Plan to wean o2 and pep 06/15/13 SaO2 95% on RA. Hypovolemia 06/12/2013 06/15/2013 Overview: PRN IVF replacment SUMMARY 06/08/2013 02/03/2014 Overview: 52 years old male patient presenting with abdominal pain, acute intramural hematoma in his AAA , his AAA has been progressive now 5.3 cm for surgical vs endovascular repair. History of pulmonary embolism 06/08/2013 Overview: H/o unprovoked PE in 05/2011: on Coumadin (compliance issues in the past) History of smoking 06/08/2013 06/09/2013 Overview: History: 2 ppd for many years, quit 3 years ago Cervicalgia 01/15/2013 04/13/2013 Headache(784.0) 01/15/2013 04/13/2013 Atrial fibrillation 06/03/2012 06/18/2019 Pulmonary embolism 05/19/2011 01/06/2013 Obesity, unspecified 11/04/2008 06/08/2013 Screening for unspecified condition 11/21/2007 11/04/2008 Unspecified sleep apnea 04/03/2007 06/09/20 13 Overview: Non compliant, intolerant of CPAP machine. GYNECOMASTIA 11/08/2006 11/04/2008 Internal hemorrhoids without mention of complica tion 10/24/2006 01/02/2017 Tobacco use disorder 10/24/2006 09/04/2011 documented as of this encounter (statuses as of 10/13/2022) [facility] History of Past illness Narrative* Problem Noted Date Resolved Date Obesity, Class II, BMI 35-39.9 04/02/2018 0 04/05/2021 Sebaceous cyst 09/03/2016 01/02/2017 Lumbar spondylosis 02/05/2014 12/31/2017 DDD (degenerative disc disease), lumbar 02/06/20 14 12/31/2017 Physical deconditioning, multifactorial dyspnea 02/03/2014 08/27/2016 Obesity 12/30/2013 05/11/2019 Nasal congestion 12/30/2013 08/27/2016 Visual impairment in both eyes 12/30/2013 0 08/27/2016 Atelectasis 06/12/2013 02/03/2014 Overview: Extubated in OR. Plan to wean o2 and pep 06/15/13 SaO2 95% on RA. Hypovolemia 06/12/2013 06/15/2013 Overview: PRN IVF replacment SUMMARY 06/08/2013 02/03/2014 Overview: 52 years old male patient presenting with abdominal pain, acute intramural hematoma in his AAA , his AAA has been progressive now 5.3 cm for surgical vs endovascular repair. History of pulmonary embolism 06/08/2013 Overview: H/o unprovoked PE in 05/2011: on Coumadin (compliance issues in the past) History of smoking 06/08/2013 06/09/2013 Overview: History: 2 ppd for many years, quit 3 years ago Cervicalgia 01/15/2013 04/13/2013 Headache(784.0) 01/15/2013 04/13/2013 Atrial fibrillation 06/03/2012 06/18/2019 Pulmonary embolism 05/19/2011 01/06/2013 Obesity, unspecified 11/04/2008 06/08/2013 Screening for unspecified condition 11/21/2007 11/04/2008 Unspecified sleep apnea 04/03/2007 06/09/20 13 Overview: Non compliant, intolerant of CPAP machine. GYNECOMASTIA 11/08/2006 11/04/2008 Internal hemorrhoids without mention of complica tion 10/24/2006 01/02/2017 Tobacco use disorder 10/24/2006 09/04/2011 documented as of this encounter (statuses as of 10/26/2022) [facility] History of Past illness Narrative* Problem Noted Date Resolved Date Obesity, Class II, BMI 35-39.9 04/02/2018 0 04/05/2021 Sebaceous cyst 09/03/2016 01/02/2017 Lumbar spondylosis 02/05/2014 12/31/2017 DDD (degenerative disc disease), lumbar 02/06/20 14 12/31/2017 Physical deconditioning, multifactorial dyspnea 02/03/2014 08/27/2016 Obesity 12/30/2013 05/11/2019 Nasal congestion 12/30/2013 08/27/2016 Visual impairment in both eyes 12/30/2013 0 08/27/2016 Atelectasis 06/12/2013 02/03/2014 Overview: Extubated in OR. Plan to wean o2 and pep 06/15/13 SaO2 95% on RA. Hypovolemia 06/12/2013 06/15/2013 Overview: PRN IVF replacment SUMMARY 06/08/2013 02/03/2014 Overview: 52 years old male patient presenting with abdominal pain, acute intramural hematoma in his AAA , his AAA has been progressive now 5.3 cm for surgical vs endovascular repair. History of pulmonary embolism 06/08/2013 Overview: H/o unprovoked PE in 05/2011: on Coumadin (compliance issues in the past) History of smoking 06/08/2013 06/09/2013 Overview: History: 2 ppd for many years, quit 3 years ago Cervicalgia 01/15/2013 04/13/2013 Headache(784.0) 01/15/2013 04/13/2013 Atrial fibrillation 06/03/2012 06/18/2019 Pulmonary embolism 05/19/2011 01/06/2013 Obesity, unspecified 11/04/2008 06/08/2013 Screening for unspecified condition 11/21/2007 11/04/2008 Unspecified sleep apnea 04/03/2007 06/09/20 13 Overview: Non compliant, intolerant of CPAP machine. GYNECOMASTIA 11/08/2006 11/04/2008 Internal hemorrhoids without mention of complica tion 10/24/2006 01/02/2017 Tobacco use disorder 10/24/2006 09/04/2011 documented as of this encounter (statuses as of 11/09/2022) [facility] History of Past illness Narrative* Problem Noted Date Resolved Date Obesity, Class II, BMI 35-39.9 04/02/2018 0 04/05/2021 Sebaceous cyst 09/03/2016 01/02/2017 Lumbar spondylosis 02/05/2014 12/31/2017 DDD (degenerative disc disease), lumbar 02/06/20 14 12/31/2017 Physical deconditioning, multifactorial dyspnea 02/03/2014 08/27/2016 Obesity 12/30/2013 05/11/2019 Nasal congestion 12/30/2013 08/27/2016 Visual impairment in both eyes 12/30/2013 0 08/27/2016 Atelectasis 06/12/2013 02/03/2014 Overview: Extubated in OR. Plan to wean o2 and pep 06/15/13 SaO2 95% on RA. Hypovolemia 06/12/2013 06/15/2013 Overview: PRN IVF replacment SUMMARY 06/08/2013 02/03/2014 Overview: 52 years old male patient presenting with abdominal pain, acute intramural hematoma in his AAA , his AAA has been progressive now 5.3 cm for surgical vs endovascular repair. History of pulmonary embolism 06/08/2013 Overview: H/o unprovoked PE in 05/2011: on Coumadin (compliance issues in the past) History of smoking 06/08/2013 06/09/2013 Overview: History: 2 ppd for many years, quit 3 years ago Cervicalgia 01/15/2013 04/13/2013 Headache(784.0) 01/15/2013 04/13/2013 Atrial fibrillation 06/03/2012 06/18/2019 Pulmonary embolism 05/19/2011 01/06/2013 Obesity, unspecified 11/04/2008 06/08/2013 Screening for unspecified condition 11/21/2007 11/04/2008 Unspecified sleep apnea 04/03/2007 06/09/20 13 Overview: Non compliant, intolerant of CPAP machine. GYNECOMASTIA 11/08/2006 11/04/2008 Internal hemorrhoids without mention of complica tion 10/24/2006 01/02/2017 Tobacco use disorder 10/24/2006 09/04/2011 documented as of this encounter (statuses as of 12/07/2022) [facility] History of Past illness Narrative* Problem Noted Date Resolved Date Obesity, Class II, BMI 35-39.9 04/02/2018 0 04/05/2021 Sebaceous cyst 09/03/2016 01/02/2017 Lumbar spondylosis 02/05/2014 12/31/2017 DDD (degenerative disc disease), lumbar 02/06/20 14 12/31/2017 Physical deconditioning, multifactorial dyspnea 02/03/2014 08/27/2016 Obesity 12/30/2013 05/11/2019 Nasal congestion 12/30/2013 08/27/2016 Visual impairment in both eyes 12/30/2013 0 08/27/2016 Atelectasis 06/12/2013 02/03/2014 Overview: Extubated in OR. Plan to wean o2 and pep 06/15/13 SaO2 95% on RA. Hypovolemia 06/12/2013 06/15/2013 Overview: PRN IVF replacment SUMMARY 06/08/2013 02/03/2014 Overview: 52 years old male patient presenting with abdominal pain, acute intramural hematoma in his AAA , his AAA has been progressive now 5.3 cm for surgical vs endovascular repair. History of pulmonary embolism 06/08/2013 Overview: H/o unprovoked PE in 05/2011: on Coumadin (compliance issues in the past) History of smoking 06/08/2013 06/09/2013 Overview: History: 2 ppd for many years, quit 3 years ago Cervicalgia 01/15/2013 04/13/2013 Headache(784.0) 01/15/2013 04/13/2013 Atrial fibrillation 06/03/2012 06/18/2019 Pulmonary embolism 05/19/2011 01/06/2013 Obesity, unspecified 11/04/2008 06/08/2013 Screening for unspecified condition 11/21/2007 11/04/2008 Unspecified sleep apnea 04/03/2007 06/09/20 13 Overview: Non compliant, intolerant of CPAP machine. GYNECOMASTIA 11/08/2006 11/04/2008 Internal hemorrhoids without mention of complica tion 10/24/2006 01/02/2017 Tobacco use disorder 10/24/2006 09/04/2011 documented as of this encounter (statuses as of 12/21/2022) [facility] History of Past illness Narrative* Problem Noted Date Resolved Date Obesity, Class II, BMI 35-39.9 04/02/2018 0 04/05/2021 Sebaceous cyst 09/03/2016 01/02/2017 Lumbar spondylosis 02/05/2014 12/31/2017 DDD (degenerative disc disease), lumbar 02/06/20 14 12/31/2017 Physical deconditioning, multifactorial dyspnea 02/03/2014 08/27/2016 Obesity 12/30/2013 05/11/2019 Nasal congestion 12/30/2013 08/27/2016 Visual impairment in both eyes 12/30/2013 0 08/27/2016 Atelectasis 06/12/2013 02/03/2014 Overview: Extubated in OR. Plan to wean o2 and pep 06/15/13 SaO2 95% on RA. Hypovolemia 06/12/2013 06/15/2013 Overview: PRN IVF replacment SUMMARY 06/08/2013 02/03/2014 Overview: 52 years old male patient presenting with abdominal pain, acute intramural hematoma in his AAA , his AAA has been progressive now 5.3 cm for surgical vs endovascular repair. History of pulmonary embolism 06/08/2013 Overview: H/o unprovoked PE in 05/2011: on Coumadin (compliance issues in the past) History of smoking 06/08/2013 06/09/2013 Overview: History: 2 ppd for many years, quit 3 years ago Cervicalgia 01/15/2013 04/13/2013 Headache(784.0) 01/15/2013 04/13/2013 Atrial fibrillation 06/03/2012 06/18/2019 Pulmonary embolism 05/19/2011 01/06/2013 Obesity, unspecified 11/04/2008 06/08/2013 Screening for unspecified condition 11/21/2007 11/04/2008 Unspecified sleep apnea 04/03/2007 06/09/20 13 Overview: Non compliant, intolerant of CPAP machine. GYNECOMASTIA 11/08/2006 11/04/2008 Internal hemorrhoids without mention of complica tion 10/24/2006 01/02/2017 Tobacco use disorder 10/24/2006 09/04/2011 documented as of this encounter (statuses as of 01/09/2023) [facility] History of Past illness Narrative* Problem Noted Date Diagnosed Date Resolved Date Obesity, Class II, BMI 35-39.9 04/02/2018 04/05/2021 Sebaceous cyst 09/03/2016 01/02/2017 Lumbar spondylosis 02/05/2014 8 DDD (degenerative disc disease), lumbar 02/05/2014 12/31/2017 Physical deconditioning, mul tifactorial dyspnea 02/03/2014 08/27/2016 Obesity 12/30/2013 05/11/2019 Nasal congestion 12/30/2013 08/27/2016 Visual impairment in both eyes 12/30/2013 08/27/2016 Atelectasis 06/12/2013 02/03/2014 Overview: Extubated in OR. Plan to wean o2 and pep 06/15/13 SaO2 95% on RA. Hypovolemia 06/12/2013 06/15/2013 Overview: PRN IVF replacment SUMMARY 06/08/2013 02/03/2014 Overview: 52 years old male patient presenting with abdominal pain, acute intramural hematoma in his AAA , his AAA has been progressive now 5.3 cm for surgical vs endovascular repair. History of pulmonary embolism 06/08/2013 01/02/2017 Overview: H/o unprovoked PE in 05/2011: on Coumadin (compliance issues in the past) History of smoking 06/08/2013 3 Overview: History: 2 ppd for many years, quit 3 years ago Cervicalgia 01/15/2013 04/13/2013 Headache(784.0) 01/15/2013 04/13/2013 Atrial fibrillation 06/03/2012 06/18/20 19 Pulmonary embolism 05/19/2011 3 Obesity, unspecified 11/04/2008 013 Screening for unspecified condition 11/21/2007 11/04/2008 Unspecified sleep apnea 04/03/200709/2012 Overview: Non compliant, intolerant of CPAP machine. GYNECOMASTIA 11/08/2006 11/04/2008 Internal hemorrhoids without mention of complication 10/24/2006 01/02/2017 Tobacco use disorder 10/24/2006 012 documented as of this encounter (statuses as of 01/14/2023) [facility] History of Past illness Narrative* Problem Noted Date Diagnosed Date Resolved Date Obesity, Class II, BMI 35-39.9 04/02/2018 04/05/2021 Sebaceous cyst 09/03/2016 01/02/2017 Lumbar spondylosis 02/05/2014 8 DDD (degenerative disc disease), lumbar 02/05/2014 12/31/2017 Physical deconditioning, mul tifactorial dyspnea 02/03/2014 08/27/2016 Obesity 12/30/2013 05/11/2019 Nasal congestion 12/30/2013 08/27/2016 Visual impairment in both eyes 12/30/2013 08/27/2016 Atelectasis 06/12/2013 02/03/2014 Overview: Extubated in OR. Plan to wean o2 and pep 06/15/13 SaO2 95% on RA. Hypovolemia 06/12/2013 06/15/2013 Overview: PRN IVF replacment SUMMARY 06/08/2013 02/03/2014 Overview: 52 years old male patient presenting with abdominal pain, acute intramural hematoma in his AAA , his AAA has been progressive now 5.3 cm for surgical vs endovascular repair. History of pulmonary embolism 06/08/2013 01/02/2017 Overview: H/o unprovoked PE in 05/2011: on Coumadin (compliance issues in the past) History of smoking 06/08/2013 3 Overview: History: 2 ppd for many years, quit 3 years ago Cervicalgia 01/15/2013 04/13/2013 Headache(784.0) 01/15/2013 04/13/2013 Atrial fibrillation 06/03/2012 06/18/20 Pulmonary embolism 05/19/2011 3 Obesity, unspecified 11/04/2008 013 Screening for unspecified condition 11/21/2007 11/04/2008 Unspecified sleep apnea 04/03/2007 1209/2012 Overview: Non compliant, intolerant of CPAP machine. GYNECOMASTIA 11/08/2006 11/04/2008 Internal hemorrhoids without mention of complication 10/24/2006 01/02/2017 Tobacco use disorder 10/24/2006 012 documented as of this encounter (statuses as of 02/01/2023) [facility] History of Past illness Narrative* Problem Noted Date Diagnosed Date Resolved Date Obesity, Class II, BMI 35-39.9 04/02/2018 04/05/2021 Sebaceous cyst 09/03/2016 01/02/2017 Lumbar spondylosis 02/05/2014 8 DDD (degenerative disc disease), lumbar 02/05/2014 12/31/2017 Physical deconditioning, mul tifactorial dyspnea 02/03/2014 08/27/2016 Obesity 12/30/2013 05/11/2019 Nasal congestion 12/30/2013 08/27/2016 Visual impairment in both eyes 12/30/2013 08/27/2016 Atelectasis 06/12/2013 02/03/2014 Overview: Extubated in OR. Plan to wean o2 and pep 06/15/13 SaO2 95% on RA. Hypovolemia 06/12/2013 06/15/2013 Overview: PRN IVF replacment SUMMARY 06/08/2013 02/03/2014 Overview: 52 years old male patient presenting with abdominal pain, acute intramural hematoma in his AAA , his AAA has been progressive now 5.3 cm for surgical vs endovascular repair. History of pulmonary embolism 06/08/2013 01/02/2017 Overview: H/o unprovoked PE in 05/2011: on Coumadin (compliance issues in the past) History of smoking 06/08/2013 3 Overview: History: 2 ppd for many years, quit 3 years ago Cervicalgia 01/15/2013 04/13/2013 Headache(784.0) 01/15/2013 04/13/2013 Atrial fibrillation 06/03/2012 06/18/20 Pulmonary embolism 05/19/2011 3 Obesity, unspecified 11/04/2008 013 Screening for unspecified condition 11/21/2007 11/04/2008 Unspecified sleep apnea 04/03/200709/2012 Overview: Non compliant, intolerant of CPAP machine. GYNECOMASTIA 11/08/2006 11/04/2008 Internal hemorrhoids without mention of complication 10/24/2006 01/02/2017 Tobacco use disorder 10/24/2006 012 documented as of this encounter (statuses as of 02/01/2023) [facility] History of Past illness Narrative* Problem Noted Date Diagnosed Date Resolved Date Obesity, Class II, BMI 35-39.9 04/02/2018 04/05/2021 Sebaceous cyst 09/03/2016 01/02/2017 Lumbar spondylosis 02/05/2014 8 DDD (degenerative disc disease), lumbar 02/05/2014 12/31/2017 Physical deconditioning, mul tifactorial dyspnea 02/03/2014 08/27/2016 Obesity 12/30/2013 05/11/2019 Nasal congestion 12/30/2013 08/27/2016 Visual impairment in both eyes 12/30/2013 08/27/2016 Atelectasis 06/12/2013 02/03/2014 Overview: Extubated in OR. Plan to wean o2 and pep 06/15/13 SaO2 95% on RA. Hypovolemia 06/12/2013 06/15/2013 Overview: PRN IVF replacment SUMMARY 06/08/2013 02/03/2014 Overview: 52 years old male patient presenting with abdominal pain, acute intramural hematoma in his AAA , his AAA has been progressive now 5.3 cm for surgical vs endovascular repair. History of pulmonary embolism 06/08/2013 01/02/2017 Overview: H/o unprovoked PE in 05/2011: on Coumadin (compliance issues in the past) History of smoking 06/08/2013 3 Overview: History: 2 ppd for many years, quit 3 years ago Cervicalgia 01/15/2013 04/13/2013 Headache(784.0) 01/15/2013 04/13/2013 Atrial fibrillation 06/03/2012 06/18/20 19 Pulmonary embolism 05/19/2011 3 Obesity, unspecified 11/04/2008 013 Screening for unspecified condition 11/21/2007 11/04/2008 Unspecified sleep apnea 04/03/200709/2012 Overview: Non compliant, intolerant of CPAP machine. GYNECOMASTIA 11/08/2006 11/04/2008 Internal hemorrhoids without mention of complication 10/24/2006 01/02/2017 Tobacco use disorder 10/24/2006 012 documented as of this encounter (statuses as of 02/05/2023) [facility] History of Past illness Narrative* Problem Noted Date Diagnosed Date Resolved Date Obesity, Class II, BMI 35-39.9 04/02/2018 04/05/2021 Sebaceous cyst 09/03/2016 01/02/2017 Lumbar spondylosis 02/05/2014 8 DDD (degenerative disc disease), lumbar 02/05/2014 12/31/2017 Physical deconditioning, mul tifactorial dyspnea 02/03/2014 08/27/2016 Obesity 12/30/2013 05/11/2019 Nasal congestion 12/30/2013 08/27/2016 Visual impairment in both eyes 12/30/2013 08/27/2016 Atelectasis 06/12/2013 02/03/2014 Overview: Extubated in OR. Plan to wean o2 and pep 06/15/13 SaO2 95% on RA. Hypovolemia 06/12/2013 06/15/2013 Overview: PRN IVF replacment SUMMARY 06/08/2013 02/03/2014 Overview: 52 years old male patient presenting with abdominal pain, acute intramural hematoma in his AAA , his AAA has been progressive now 5.3 cm for surgical vs endovascular repair. History of pulmonary embolism 06/08/2013 01/02/2017 Overview: H/o unprovoked PE in 05/2011: on Coumadin (compliance issues in the past) History of smoking 06/08/2013 3 Overview: History: 2 ppd for many years, quit 3 years ago Cervicalgia 01/15/2013 04/13/2013 Headache(784.0) 01/15/2013 04/13/2013 Atrial fibrillation 06/03/2012 06/18/20 19 Pulmonary embolism 05/19/2011 3 Obesity, unspecified 11/04/2008 013 Screening for unspecified condition 11/21/2007 11/04/2008 Unspecified sleep apnea 04/03/200709/2012 Overview: Non compliant, intolerant of CPAP machine. GYNECOMASTIA 11/08/2006 11/04/2008 Internal hemorrhoids without mention of complication 10/24/2006 01/02/2017 Tobacco use disorder 10/24/2006 012 documented as of this encounter (statuses as of 02/09/2023) [facility] History of Past illness Narrative* Problem Noted Date Diagnosed Date Resolved Date Obesity, Class II, BMI 35-39.9 04/02/2018 04/05/2021 Sebaceous cyst 09/03/2016 01/02/2017 Lumbar spondylosis 02/05/2014 8 DDD (degenerative disc disease), lumbar 02/05/2014 12/31/2017 Physical deconditioning, mul tifactorial dyspnea 02/03/2014 08/27/2016 Obesity 12/30/2013 05/11/2019 Nasal congestion 12/30/2013 08/27/2016 Visual impairment in both eyes 12/30/2013 08/27/2016 Atelectasis 06/12/2013 02/03/2014 Overview: Extubated in OR. Plan to wean o2 and pep 06/15/13 SaO2 95% on RA. Hypovolemia 06/12/2013 06/15/2013 Overview: PRN IVF replacment SUMMARY 06/08/2013 02/03/2014 Overview: 52 years old male patient presenting with abdominal pain, acute intramural hematoma in his AAA , his AAA has been progressive now 5.3 cm for surgical vs endovascular repair. History of pulmonary embolism 06/08/2013 01/02/2017 Overview: H/o unprovoked PE in 05/2011: on Coumadin (compliance issues in the past) History of smoking 06/08/2013 3 Overview: History: 2 ppd for many years, quit 3 years ago Cervicalgia 01/15/2013 04/13/2013 Headache(784.0) 01/15/2013 04/13/2013 Atrial fibrillation 06/03/2012 06/18/20 19 Pulmonary embolism 05/19/2011 3 Obesity, unspecified 11/04/2008 013 Screening for unspecified condition 11/21/2007 11/04/2008 Unspecified sleep apnea 04/03/2007 1209/2012 Overview: Non compliant, intolerant of CPAP machine. GYNECOMASTIA 11/08/2006 11/04/2008 Internal hemorrhoids without mention of complication 10/24/2006 01/02/2017 Tobacco use disorder 10/24/2006 012 documented as of this encounter (statuses as of 02/14/2023) [facility] History of Past illness Narrative* Problem Noted Date Diagnosed Date Resolved Date Obesity, Class II, BMI 35-39.9 04/02/2018 04/05/2021 Sebaceous cyst 09/03/2016 01/02/2017 Lumbar spondylosis 02/05/2014 8 DDD (degenerative disc disease), lumbar 02/05/2014 12/31/2017 Physical deconditioning, mul tifactorial dyspnea 02/03/2014 08/27/2016 Obesity 12/30/2013 05/11/2019 Nasal congestion 12/30/2013 08/27/2016 Visual impairment in both eyes 12/30/2013 08/27/2016 Atelectasis 06/12/2013 02/03/2014 Overview: Extubated in OR. Plan to wean o2 and pep 06/15/13 SaO2 95% on RA. Hypovolemia 06/12/2013 06/15/2013 Overview: PRN IVF replacment SUMMARY 06/08/2013 02/03/2014 Overview: 52 years old male patient presenting with abdominal pain, acute intramural hematoma in his AAA , his AAA has been progressive now 5.3 cm for surgical vs endovascular repair. History of pulmonary embolism 06/08/2013 01/02/2017 Overview: H/o unprovoked PE in 05/2011: on Coumadin (compliance issues in the past) History of smoking 06/08/2013 3 Overview: History: 2 ppd for many years, quit 3 years ago Cervicalgia 01/15/2013 04/13/2013 Headache(784.0) 01/15/2013 04/13/2013 Atrial fibrillation 06/03/2012 06/18/20 19 Pulmonary embolism 05/19/2011 3 Obesity, unspecified 11/04/2008 013 Screening for unspecified condition 11/21/2007 11/04/2008 Unspecified sleep apnea 04/03/200709/2012 Overview: Non compliant, intolerant of CPAP machine. GYNECOMASTIA 11/08/2006 11/04/2008 Internal hemorrhoids without mention of complication 10/24/2006 01/02/2017 Tobacco use disorder 10/24/2006 012 documented as of this encounter (statuses as of 02/15/2023) [facility] History of Past illness Narrative* Problem Noted Date Diagnosed Date Resolved Date Obesity, Class II, BMI 35-39.9 04/02/2018 04/05/2021 Sebaceous cyst 09/03/2016 01/02/2017 Lumbar spondylosis 02/05/2014 8 DDD (degenerative disc disease), lumbar 02/05/2014 12/31/2017 Physical deconditioning, mul tifactorial dyspnea 02/03/2014 08/27/2016 Obesity 12/30/2013 05/11/2019 Nasal congestion 12/30/2013 08/27/2016 Visual impairment in both eyes 12/30/2013 08/27/2016 Atelectasis 06/12/2013 02/03/2014 Overview: Extubated in OR. Plan to wean o2 and pep 06/15/13 SaO2 95% on RA. Hypovolemia 06/12/2013 06/15/2013 Overview: PRN IVF replacment SUMMARY 06/08/2013 02/03/2014 Overview: 52 years old male patient presenting with abdominal pain, acute intramural hematoma in his AAA , his AAA has been progressive now 5.3 cm for surgical vs endovascular repair. History of pulmonary embolism 06/08/2013 01/02/2017 Overview: H/o unprovoked PE in 05/2011: on Coumadin (compliance issues in the past) History of smoking 06/08/2013 3 Overview: History: 2 ppd for many years, quit 3 years ago Cervicalgia 01/15/2013 04/13/2013 Headache(784.0) 01/15/2013 04/13/2013 Atrial fibrillation 06/03/2012 06/18/20 19 Pulmonary embolism 05/19/2011 3 Obesity, unspecified 11/04/2008 013 Screening for unspecified condition 11/21/2007 11/04/2008 Unspecified sleep apnea 04/03/2007 1209/2012 Overview: Non compliant, intolerant of CPAP machine. GYNECOMASTIA 11/08/2006 11/04/2008 Internal hemorrhoids without mention of complication 10/24/2006 01/02/2017 Tobacco use disorder 10/24/2006 012 documented as of this encounter (statuses as of 03/06/2023) [facility] History of Past illness Narrative* Problem Noted Date Diagnosed Date Resolved Date Obesity, Class II, BMI 35-39.9 04/02/2018 04/05/2021 Sebaceous cyst 09/03/2016 01/02/2017 Lumbar spondylosis 02/05/2014 8 DDD (degenerative disc disease), lumbar 02/05/2014 12/31/2017 Physical deconditioning, mul tifactorial dyspnea 02/03/2014 08/27/2016 Obesity 12/30/2013 05/11/2019 Nasal congestion 12/30/2013 08/27/2016 Visual impairment in both eyes 12/30/2013 08/27/2016 Atelectasis 06/12/2013 02/03/2014 Overview: Extubated in OR. Plan to wean o2 and pep 06/15/13 SaO2 95% on RA. Hypovolemia 06/12/2013 06/15/2013 Overview: PRN IVF replacment SUMMARY 06/08/2013 02/03/2014 Overview: 52 years old male patient presenting with abdominal pain, acute intramural hematoma in his AAA , his AAA has been progressive now 5.3 cm for surgical vs endovascular repair. History of pulmonary embolism 06/08/2013 01/02/2017 Overview: H/o unprovoked PE in 05/2011: on Coumadin (compliance issues in the past) History of smoking 06/08/2013 3 Overview: History: 2 ppd for many years, quit 3 years ago Cervicalgia 01/15/2013 04/13/2013 Headache(784.0) 01/15/2013 04/13/2013 Atrial fibrillation 06/03/2012 06/18/20 19 Pulmonary embolism 05/19/2011 3 Obesity, unspecified 11/04/2008 013 Screening for unspecified condition 11/21/2007 11/04/2008 Unspecified sleep apnea 04/03/200709/2012 Overview: Non compliant, intolerant of CPAP machine. GYNECOMASTIA 11/08/2006 11/04/2008 Internal hemorrhoids without mention of complication 10/24/2006 01/02/2017 Tobacco use disorder 10/24/2006 012 documented as of this encounter (statuses as of 03/08/2023) [facility] History of Past illness Narrative* Problem Noted Date Diagnosed Date Resolved Date Obesity, Class II, BMI 35-39.9 04/02/2018 04/05/2021 Sebaceous cyst 09/03/2016 01/02/2017 Lumbar spondylosis 02/05/2014 8 DDD (degenerative disc disease), lumbar 02/05/2014 12/31/2017 Physical deconditioning, mul tifactorial dyspnea 02/03/2014 08/27/2016 Obesity 12/30/2013 05/11/2019 Nasal congestion 12/30/2013 08/27/2016 Visual impairment in both eyes 12/30/2013 08/27/2016 Atelectasis 06/12/2013 02/03/2014 Overview: Extubated in OR. Plan to wean o2 and pep 06/15/13 SaO2 95% on RA. Hypovolemia 06/12/2013 06/15/2013 Overview: PRN IVF replacment SUMMARY 06/08/2013 02/03/2014 Overview: 52 years old male patient presenting with abdominal pain, acute intramural hematoma in his AAA , his AAA has been progressive now 5.3 cm for surgical vs endovascular repair. History of pulmonary embolism 06/08/2013 01/02/2017 Overview: H/o unprovoked PE in 05/2011: on Coumadin (compliance issues in the past) History of smoking 06/08/2013 3 Overview: History: 2 ppd for many years, quit 3 years ago Cervicalgia 01/15/2013 04/13/2013 Headache(784.0) 01/15/2013 04/13/2013 Atrial fibrillation 06/03/2012 06/18/20 Pulmonary embolism 05/19/2011 3 Obesity, unspecified 11/04/2008 013 Screening for unspecified condition 11/21/2007 11/04/2008 Unspecified sleep apnea 04/03/2007 12/09/2012 Overview: Non compliant, intolerant of CPAP machine. GYNECOMASTIA 11/08/2006 11/04/2008 Internal hemorrhoids without mention of complication 10/24/2006 01/02/2017 Tobacco use disorder 10/24/2006 012 documented as of this encounter (statuses as of 03/16/2023) [facility] History of Past illness Narrative* Problem Noted Date Diagnosed Date Resolved Date Obesity, Class II, BMI 35-39.9 04/02/2018 04/05/2021 Sebaceous cyst 09/03/2016 01/02/2017 Lumbar spondylosis 02/05/2014 8 DDD (degenerative disc disease), lumbar 02/05/2014 12/31/2017 Physical deconditioning, mul tifactorial dyspnea 02/03/2014 08/27/2016 Obesity 12/30/2013 05/11/2019 Nasal congestion 12/30/2013 08/27/2016 Visual impairment in both eyes 12/30/2013 08/27/2016 Atelectasis 06/12/2013 02/03/2014 Overview: Extubated in OR. Plan to wean o2 and pep 06/15/13 SaO2 95% on RA. Hypovolemia 06/12/2013 06/15/2013 Overview: PRN IVF replacment SUMMARY 06/08/2013 02/03/2014 Overview: 52 years old male patient presenting with abdominal pain, acute intramural hematoma in his AAA , his AAA has been progressive now 5.3 cm for surgical vs endovascular repair. History of pulmonary embolism 06/08/2013 01/02/2017 Overview: H/o unprovoked PE in 05/2011: on Coumadin (compliance issues in the past) History of smoking 06/08/2013 3 Overview: History: 2 ppd for many years, quit 3 years ago Cervicalgia 01/15/2013 04/13/2013 Headache(784.0) 01/15/2013 04/13/2013 Atrial fibrillation 06/03/2012 06/18/20 Pulmonary embolism 05/19/2011 3 Obesity, unspecified 11/04/2008 013 Screening for unspecified condition 11/21/2007 11/04/2008 Unspecified sleep apnea 04/03/200709/2012 Overview: Non compliant, intolerant of CPAP machine. GYNECOMASTIA 11/08/2006 11/04/2008 Internal hemorrhoids without mention of complication 10/24/2006 01/02/2017 Tobacco use disorder 10/24/2006 012 documented as of this encounter (statuses as of 03/22/2023) [facility] History of Past illness Narrative* Problem Noted Date Diagnosed Date Resolved Date Obesity, Class II, BMI 35-39.9 04/02/2018 04/05/2021 Sebaceous cyst 09/03/2016 01/02/2017 Lumbar spondylosis 02/05/2014 8 DDD (degenerative disc disease), lumbar 02/05/2014 12/31/2017 Physical deconditioning, mul tifactorial dyspnea 02/03/2014 08/27/2016 Obesity 12/30/2013 05/11/2019 Nasal congestion 12/30/2013 08/27/2016 Visual impairment in both eyes 12/30/2013 08/27/2016 Atelectasis 06/12/2013 02/03/2014 Overview: Extubated in OR. Plan to wean o2 and pep 06/15/13 SaO2 95% on RA. Hypovolemia 06/12/2013 06/15/2013 Overview: PRN IVF replacment SUMMARY 06/08/2013 02/03/2014 Overview: 52 years old male patient presenting with abdominal pain, acute intramural hematoma in his AAA , his AAA has been progressive now 5.3 cm for surgical vs endovascular repair. History of pulmonary embolism 06/08/2013 01/02/2017 Overview: H/o unprovoked PE in 05/2011: on Coumadin (compliance issues in the past) History of smoking 06/08/2013 3 Overview: History: 2 ppd for many years, quit 3 years ago Cervicalgia 01/15/2013 04/13/2013 Headache(784.0) 01/15/2013 04/13/2013 Atrial fibrillation 06/03/2012 06/18/20 19 Pulmonary embolism 05/19/2011 3 Obesity, unspecified 11/04/2008 013 Screening for unspecified condition 11/21/2007 11/04/2008 Unspecified sleep apnea 04/03/200709/2012 Overview: Non compliant, intolerant of CPAP machine. GYNECOMASTIA 11/08/2006 11/04/2008 Internal hemorrhoids without mention of complication 10/24/2006 01/02/2017 Tobacco use disorder 10/24/2006 012 documented as of this encounter (statuses as of 03/24/2023) [facility] History of Past illness Narrative* Problem Noted Date Diagnosed Date Resolved Date Obesity, Class II, BMI 35-39.9 04/02/2018 04/05/2021 Sebaceous cyst 09/03/2016 01/02/2017 Lumbar spondylosis 02/05/2014 8 DDD (degenerative disc disease), lumbar 02/05/2014 12/31/2017 Physical deconditioning, mul tifactorial dyspnea 02/03/2014 08/27/2016 Obesity 12/30/2013 05/11/2019 Nasal congestion 12/30/2013 08/27/2016 Visual impairment in both eyes 12/30/2013 08/27/2016 Atelectasis 06/12/2013 02/03/2014 Overview: Extubated in OR. Plan to wean o2 and pep 06/15/13 SaO2 95% on RA. Hypovolemia 06/12/2013 06/15/2013 Overview: PRN IVF replacment SUMMARY 06/08/2013 02/03/2014 Overview: 52 years old male patient presenting with abdominal pain, acute intramural hematoma in his AAA , his AAA has been progressive now 5.3 cm for surgical vs endovascular repair. History of pulmonary embolism 06/08/2013 01/02/2017 Overview: H/o unprovoked PE in 05/2011: on Coumadin (compliance issues in the past) History of smoking 06/08/2013 3 Overview: History: 2 ppd for many years, quit 3 years ago Cervicalgia 01/15/2013 04/13/2013 Headache(784.0) 01/15/2013 04/13/2013 Atrial fibrillation 06/03/2012 06/18/20 19 Pulmonary embolism 05/19/2011 3 Obesity, unspecified 11/04/2008 013 Screening for unspecified condition 11/21/2007 11/04/2008 Unspecified sleep apnea 04/03/200709/2012 Overview: Non compliant, intolerant of CPAP machine. GYNECOMASTIA 11/08/2006 11/04/2008 Internal hemorrhoids without mention of complication 10/24/2006 01/02/2017 Tobacco use disorder 10/24/2006 012 documented as of this encounter (statuses as of 03/25/2023) [facility] History of Past illness Narrative* Problem Noted Date Diagnosed Date Resolved Date Obesity, Class II, BMI 35-39.9 04/02/2018 04/05/2021 Sebaceous cyst 09/03/2016 01/02/2017 Lumbar spondylosis 02/05/2014 8 DDD (degenerative disc disease), lumbar 02/05/2014 12/31/2017 Physical deconditioning, mul tifactorial dyspnea 02/03/2014 08/27/2016 Obesity 12/30/2013 05/11/2019 Nasal congestion 12/30/2013 08/27/2016 Visual impairment in both eyes 12/30/2013 08/27/2016 Atelectasis 06/12/2013 02/03/2014 Overview: Extubated in OR. Plan to wean o2 and pep 06/15/13 SaO2 95% on RA. Hypovolemia 06/12/2013 06/15/2013 Overview: PRN IVF replacment SUMMARY 06/08/2013 02/03/2014 Overview: 52 years old male patient presenting with abdominal pain, acute intramural hematoma in his AAA , his AAA has been progressive now 5.3 cm for surgical vs endovascular repair. History of pulmonary embolism 06/08/2013 01/02/2017 Overview: H/o unprovoked PE in 05/2011: on Coumadin (compliance issues in the past) History of smoking 06/08/2013 3 Overview: History: 2 ppd for many years, quit 3 years ago Cervicalgia 01/15/2013 04/13/2013 Headache(784.0) 01/15/2013 04/13/2013 Atrial fibrillation 06/03/2012 06/18/20 19 Pulmonary embolism 05/19/2011 3 Obesity, unspecified 11/04/2008 013 Screening for unspecified condition 11/21/2007 11/04/2008 Unspecified sleep apnea 04/03/200709/2012 Overview: Non compliant, intolerant of CPAP machine. GYNECOMASTIA 11/08/2006 11/04/2008 Internal hemorrhoids without mention of complication 10/24/2006 01/02/2017 Tobacco use disorder 10/24/2006 012 documented as of this encounter (statuses as of 04/13/2023) [facility] History of Past illness Narrative* Problem Noted Date Diagnosed Date Resolved Date Obesity, Class II, BMI 35-39.9 04/02/2018 04/05/2021 Sebaceous cyst 09/03/2016 01/02/2017 Lumbar spondylosis 02/05/2014 8 DDD (degenerative disc disease), lumbar 02/05/2014 12/31/2017 Physical deconditioning, mul tifactorial dyspnea 02/03/2014 08/27/2016 Obesity 12/30/2013 05/11/2019 Nasal congestion 12/30/2013 08/27/2016 Visual impairment in both eyes 12/30/2013 08/27/2016 Atelectasis 06/12/2013 02/03/2014 Overview: Extubated in OR. Plan to wean o2 and pep 06/15/13 SaO2 95% on RA. Hypovolemia 06/12/2013 06/15/2013 Overview: PRN IVF replacment SUMMARY 06/08/2013 02/03/2014 Overview: 52 years old male patient presenting with abdominal pain, acute intramural hematoma in his AAA , his AAA has been progressive now 5.3 cm for surgical vs endovascular repair. History of pulmonary embolism 06/08/2013 01/02/2017 Overview: H/o unprovoked PE in 05/2011: on Coumadin (compliance issues in the past) History of smoking 06/08/2013 3 Overview: History: 2 ppd for many years, quit 3 years ago Cervicalgia 01/15/2013 04/13/2013 Headache(784.0) 01/15/2013 04/13/2013 Atrial fibrillation 06/03/2012 06/18/20 19 Pulmonary embolism 05/19/2011 3 Obesity, unspecified 11/04/2008 013 Screening for unspecified condition 11/21/2007 11/04/2008 Unspecified sleep apnea 04/03/200709/2012 Overview: Non compliant, intolerant of CPAP machine. GYNECOMASTIA 11/08/2006 11/04/2008 Internal hemorrhoids without mention of complication 10/24/2006 01/02/2017 Tobacco use disorder 10/24/2006 012 documented as of this encounter (statuses as of 04/23/2023) [place] [id number] History of Past illness Narrative* Problem Noted Date Diagnosed Date Resolved Date Obesity, Class II, BMI 35-39.9 04/02/2018 04/05/2021 Sebaceous cyst 09/03/2016 01/02/2017 Lumbar spondylosis 02/05/2014 8 DDD (degenerative disc disease), lumbar 02/05/2014 12/31/2017 Physical deconditioning, mul tifactorial dyspnea 02/03/2014 08/27/2016 Obesity 12/30/2013 05/11/2019 Nasal congestion 12/30/2013 08/27/2016 Visual impairment in both eyes 12/30/2013 08/27/2016 Atelectasis 06/12/2013 02/03/2014 Overview: Extubated in OR. Plan to wean o2 and pep 06/15/13 SaO2 95% on RA. Hypovolemia 06/12/2013 06/15/2013 Overview: PRN IVF replacment SUMMARY 06/08/2013 02/03/2014 Overview: 52 years old male patient presenting with abdominal pain, acute intramural hematoma in his AAA , his AAA has been progressive now 5.3 cm for surgical vs endovascular repair. History of pulmonary embolism 06/08/2013 01/02/2017 Overview: H/o unprovoked PE in 05/2011: on Coumadin (compliance issues in the past) History of smoking 06/08/2013 3 Overview: History: 2 ppd for many years, quit 3 years ago Cervicalgia 01/15/2013 04/13/2013 Headache(784.0) 01/15/2013 04/13/2013 Atrial fibrillation 06/03/2012 06/18/20 19 Pulmonary embolism 05/19/2011 3 Obesity, unspecified 11/04/2008 013 Screening for unspecified condition 11/21/2007 11/04/2008 Unspecified sleep apnea 04/03/2007 12/09/2012 Overview: Non compliant, intolerant of CPAP machine. GYNECOMASTIA 11/08/2006 11/04/2008 Internal hemorrhoids without mention of complication 10/24/2006 01/02/2017 Tobacco use disorder 10/24/2006 012 documented as of this encounter (statuses as of 04/24/2023) [facility] History of Past illness Narrative* Problem Noted Date Diagnosed Date Resolved Date Obesity, Class II, BMI 35-39.9 04/02/2018 04/05/2021 Sebaceous cyst 09/03/2016 01/02/2017 Lumbar spondylosis 02/05/2014 8 DDD (degenerative disc disease), lumbar 02/05/2014 12/31/2017 Physical deconditioning, mul tifactorial dyspnea 02/03/2014 08/27/2016 Obesity 12/30/2013 05/11/2019 Nasal congestion 12/30/2013 08/27/2016 Visual impairment in both eyes 12/30/2013 08/27/2016 Atelectasis 06/12/2013 02/03/2014 Overview: Extubated in OR. Plan to wean o2 and pep 06/15/13 SaO2 95% on RA. Hypovolemia 06/12/2013 06/15/2013 Overview: PRN IVF replacment SUMMARY 06/08/2013 02/03/2014 Overview: 52 years old male patient presenting with abdominal pain, acute intramural hematoma in his AAA , his AAA has been progressive now 5.3 cm for surgical vs endovascular repair. History of pulmonary embolism 06/08/2013 01/02/2017 Overview: H/o unprovoked PE in 05/2011: on Coumadin (compliance issues in the past) History of smoking 06/08/2013 3 Overview: History: 2 ppd for many years, quit 3 years ago Cervicalgia 01/15/2013 04/13/2013 Headache(784.0) 01/15/2013 04/13/2013 Atrial fibrillation 06/03/2012 06/18/20 19 Pulmonary embolism 05/19/2011 3 Obesity, unspecified 11/04/2008 013 Screening for unspecified condition 11/21/2007 11/04/2008 Unspecified sleep apnea 04/03/200709/2012 Overview: Non compliant, intolerant of CPAP machine. GYNECOMASTIA 11/08/2006 11/04/2008 Internal hemorrhoids without mention of complication 10/24/2006 01/02/2017 Tobacco use disorder 10/24/2006 012 documented as of this encounter (statuses as of 04/30/2023) [facility] History of Past illness Narrative* Problem Noted Date Diagnosed Date Resolved Date Obesity, Class II, BMI 35-39.9 04/02/2018 04/05/2021 Sebaceous cyst 09/03/2016 01/02/2017 Lumbar spondylosis 02/05/2014 8 DDD (degenerative disc disease), lumbar 02/05/2014 12/31/2017 Physical deconditioning, mul tifactorial dyspnea 02/03/2014 08/27/2016 Obesity 12/30/2013 05/11/2019 Nasal congestion 12/30/2013 08/27/2016 Visual impairment in both eyes 12/30/2013 08/27/2016 Atelectasis 06/12/2013 02/03/2014 Overview: Extubated in OR. Plan to wean o2 and pep 06/15/13 SaO2 95% on RA. Hypovolemia 06/12/2013 06/15/2013 Overview: PRN IVF replacment SUMMARY 06/08/2013 02/03/2014 Overview: 52 years old male patient presenting with abdominal pain, acute intramural hematoma in his AAA , his AAA has been progressive now 5.3 cm for surgical vs endovascular repair. History of pulmonary embolism 06/08/2013 01/02/2017 Overview: H/o unprovoked PE in 05/2011: on Coumadin (compliance issues in the past) History of smoking 06/08/2013 3 Overview: History: 2 ppd for many years, quit 3 years ago Cervicalgia 01/15/2013 04/13/2013 Headache(784.0) 01/15/2013 04/13/2013 Atrial fibrillation 06/03/2012 06/18/20 Pulmonary embolism 05/19/2011 3 Obesity, unspecified 11/04/2008 013 Screening for unspecified condition 11/21/2007 11/04/2008 Unspecified sleep apnea 04/03/2007 1209/2012 Overview: Non compliant, intolerant of CPAP machine. GYNECOMASTIA 11/08/2006 11/04/2008 Internal hemorrhoids without mention of complication 10/24/2006 01/02/2017 Tobacco use disorder 10/24/2006 012 documented as of this encounter (statuses as of 05/01/2023) [facility] History of Past illness Narrative* Problem Noted Date Diagnosed Date Resolved Date Obesity, Class II, BMI 35-39.9 04/02/2018 04/05/2021 Sebaceous cyst 09/03/2016 01/02/2017 Lumbar spondylosis 02/05/2014 8 DDD (degenerative disc disease), lumbar 02/05/2014 12/31/2017 Physical deconditioning, mul tifactorial dyspnea 02/03/2014 08/27/2016 Obesity 12/30/2013 05/11/2019 Nasal congestion 12/30/2013 08/27/2016 Visual impairment in both eyes 12/30/2013 08/27/2016 Atelectasis 06/12/2013 02/03/2014 Overview: Extubated in OR. Plan to wean o2 and pep 06/15/13 SaO2 95% on RA. Hypovolemia 06/12/2013 06/15/2013 Overview: PRN IVF replacment SUMMARY 06/08/2013 02/03/2014 Overview: 52 years old male patient presenting with abdominal pain, acute intramural hematoma in his AAA , his AAA has been progressive now 5.3 cm for surgical vs endovascular repair. History of pulmonary embolism 06/08/2013 01/02/2017 Overview: H/o unprovoked PE in 05/2011: on Coumadin (compliance issues in the past) History of smoking 06/08/2013 3 Overview: History: 2 ppd for many years, quit 3 years ago Cervicalgia 01/15/2013 04/13/2013 Headache(784.0) 01/15/2013 04/13/2013 Atrial fibrillation 06/03/2012 06/18/20 Pulmonary embolism 05/19/2011 3 Obesity, unspecified 11/04/2008 013 Screening for unspecified condition 11/21/2007 11/04/2008 Unspecified sleep apnea 04/03/200709/2012 Overview: Non compliant, intolerant of CPAP machine. GYNECOMASTIA 11/08/2006 11/04/2008 Internal hemorrhoids without mention of complication 10/24/2006 01/02/2017 Tobacco use disorder 10/24/2006 012 documented as of this encounter (statuses as of 05/02/2023) [facility] History of Past illness Narrative* Problem Noted Date Diagnosed Date Resolved Date Obesity, Class II, BMI 35-39.9 04/02/2018 04/05/2021 Sebaceous cyst 09/03/2016 01/02/2017 Lumbar spondylosis 02/05/2014 8 DDD (degenerative disc disease), lumbar 02/05/2014 12/31/2017 Physical deconditioning, mul tifactorial dyspnea 02/03/2014 08/27/2016 Obesity 12/30/2013 05/11/2019 Nasal congestion 12/30/2013 08/27/2016 Visual impairment in both eyes 12/30/2013 08/27/2016 Atelectasis 06/12/2013 02/03/2014 Overview: Extubated in OR. Plan to wean o2 and pep 06/15/13 SaO2 95% on RA. Hypovolemia 06/12/2013 06/15/2013 Overview: PRN IVF replacment SUMMARY 06/08/2013 02/03/2014 Overview: 52 years old male patient presenting with abdominal pain, acute intramural hematoma in his AAA , his AAA has been progressive now 5.3 cm for surgical vs endovascular repair. History of pulmonary embolism 06/08/2013 01/02/2017 Overview: H/o unprovoked PE in 05/2011: on Coumadin (compliance issues in the past) History of smoking 06/08/2013 3 Overview: History: 2 ppd for many years, quit 3 years ago Cervicalgia 01/15/2013 04/13/2013 Headache(784.0) 01/15/2013 04/13/2013 Atrial fibrillation 06/03/2012 06/18/20 19 Pulmonary embolism 05/19/2011 3 Obesity, unspecified 11/04/2008 013 Screening for unspecified condition 11/21/2007 11/04/2008 Unspecified sleep apnea 04/03/200709/2012 Overview: Non compliant, intolerant of CPAP machine. GYNECOMASTIA 11/08/2006 11/04/2008 Internal hemorrhoids without mention of complication 10/24/2006 01/02/2017 Tobacco use disorder 10/24/2006 012 documented as of this encounter (statuses as of 05/11/2023) [facility] History of Past illness Narrative* Problem Noted Date Diagnosed Date Resolved Date Obesity, Class II, BMI 35-39.9 04/02/2018 04/05/2021 Sebaceous cyst 09/03/2016 01/02/2017 Lumbar spondylosis 02/05/2014 8 DDD (degenerative disc disease), lumbar 02/05/2014 12/31/2017 Physical deconditioning, mul tifactorial dyspnea 02/03/2014 08/27/2016 Obesity 12/30/2013 05/11/2019 Nasal congestion 12/30/2013 08/27/2016 Visual impairment in both eyes 12/30/2013 08/27/2016 Atelectasis 06/12/2013 02/03/2014 Overview: Extubated in OR. Plan to wean o2 and pep 06/15/13 SaO2 95% on RA. Hypovolemia 06/12/2013 06/15/2013 Overview: PRN IVF replacment SUMMARY 06/08/2013 02/03/2014 Overview: 52 years old male patient presenting with abdominal pain, acute intramural hematoma in his AAA , his AAA has been progressive now 5.3 cm for surgical vs endovascular repair. History of pulmonary embolism 06/08/2013 01/02/2017 Overview: H/o unprovoked PE in 05/2011: on Coumadin (compliance issues in the past) History of smoking 06/08/2013 3 Overview: History: 2 ppd for many years, quit 3 years ago Cervicalgia 01/15/2013 04/13/2013 Headache(784.0) 01/15/2013 04/13/2013 Atrial fibrillation 06/03/2012 06/18/20 19 Pulmonary embolism 05/19/2011 3 Obesity, unspecified 11/04/2008 013 Screening for unspecified condition 11/21/2007 11/04/2008 Unspecified sleep apnea 04/03/200709/2012 Overview: Non compliant, intolerant of CPAP machine. GYNECOMASTIA 11/08/2006 11/04/2008 Internal hemorrhoids without mention of complication 10/24/2006 01/02/2017 Tobacco use disorder 10/24/2006 012 documented as of this encounter (statuses as of 05/12/2023) [facility] History of Past illness Narrative* Problem Noted Date Diagnosed Date Resolved Date Obesity, Class II, BMI 35-39.9 04/02/2018 04/05/2021 Sebaceous cyst 09/03/2016 01/02/2017 Lumbar spondylosis 02/05/2014 8 DDD (degenerative disc disease), lumbar 02/05/2014 12/31/2017 Physical deconditioning, mul tifactorial dyspnea 02/03/2014 08/27/2016 Obesity 12/30/2013 05/11/2019 Nasal congestion 12/30/2013 08/27/2016 Visual impairment in both eyes 12/30/2013 08/27/2016 Atelectasis 06/12/2013 02/03/2014 Overview: Extubated in OR. Plan to wean o2 and pep 06/15/13 SaO2 95% on RA. Hypovolemia 06/12/2013 06/15/2013 Overview: PRN IVF replacment SUMMARY 06/08/2013 02/03/2014 Overview: 52 years old male patient presenting with abdominal pain, acute intramural hematoma in his AAA , his AAA has been progressive now 5.3 cm for surgical vs endovascular repair. History of pulmonary embolism 06/08/2013 01/02/2017 Overview: H/o unprovoked PE in 05/2011: on Coumadin (compliance issues in the past) History of smoking 06/08/2013 3 Overview: History: 2 ppd for many years, quit 3 years ago Cervicalgia 01/15/2013 04/13/2013 Headache(784.0) 01/15/2013 04/13/2013 Atrial fibrillation 06/03/2012 06/18/20 19 Pulmonary embolism 05/19/2011 3 Obesity, unspecified 11/04/2008 013 Screening for unspecified condition 11/21/2007 11/04/2008 Unspecified sleep apnea 04/03/200709/2012 Overview: Non compliant, intolerant of CPAP machine. GYNECOMASTIA 11/08/2006 11/04/2008 Internal hemorrhoids without mention of complication 10/24/2006 01/02/2017 Tobacco use disorder 10/24/2006 012 documented as of this encounter (statuses as of 05/16/2023) [facility] History of Past illness Narrative* Problem Noted Date Diagnosed Date Resolved Date Obesity, Class II, BMI 35-39.9 04/02/2018 04/05/2021 Sebaceous cyst 09/03/2016 01/02/2017 Lumbar spondylosis 02/05/2014 8 DDD (degenerative disc disease), lumbar 02/05/2014 12/31/2017 Physical deconditioning, mul tifactorial dyspnea 02/03/2014 08/27/2016 Obesity 12/30/2013 05/11/2019 Nasal congestion 12/30/2013 08/27/2016 Visual impairment in both eyes 12/30/2013 08/27/2016 Atelectasis 06/12/2013 02/03/2014 Overview: Extubated in OR. Plan to wean o2 and pep 06/15/13 SaO2 95% on RA. Hypovolemia 06/12/2013 06/15/2013 Overview: PRN IVF replacment SUMMARY 06/08/2013 02/03/2014 Overview: 52 years old male patient presenting with abdominal pain, acute intramural hematoma in his AAA , his AAA has been progressive now 5.3 cm for surgical vs endovascular repair. History of pulmonary embolism 06/08/2013 01/02/2017 Overview: H/o unprovoked PE in 05/2011: on Coumadin (compliance issues in the past) History of smoking 06/08/2013 3 Overview: History: 2 ppd for many years, quit 3 years ago Cervicalgia 01/15/2013 04/13/2013 Headache(784.0) 01/15/2013 04/13/2013 Atrial fibrillation 06/03/2012 06/18/20 19 Pulmonary embolism 05/19/2011 3 Obesity, unspecified 11/04/2008 013 Screening for unspecified condition 11/21/2007 11/04/2008 Unspecified sleep apnea 04/03/200709/2012 Overview: Non compliant, intolerant of CPAP machine. GYNECOMASTIA 11/08/2006 11/04/2008 Internal hemorrhoids without mention of complication 10/24/2006 01/02/2017 Tobacco use disorder 10/24/2006 012 documented as of this encounter (statuses as of 05/24/2023) [facility] History of Past illness Narrative* Problem Noted Date Diagnosed Date Resolved Date Obesity, Class II, BMI 35-39.9 04/02/2018 04/05/2021 Sebaceous cyst 09/03/2016 01/02/2017 Lumbar spondylosis 02/05/2014 8 DDD (degenerative disc disease), lumbar 02/05/2014 12/31/2017 Physical deconditioning, mul tifactorial dyspnea 02/03/2014 08/27/2016 Obesity 12/30/2013 05/11/2019 Nasal congestion 12/30/2013 08/27/2016 Visual impairment in both eyes 12/30/2013 08/27/2016 Atelectasis 06/12/2013 02/03/2014 Overview: Extubated in OR. Plan to wean o2 and pep 06/15/13 SaO2 95% on RA. Hypovolemia 06/12/2013 06/15/2013 Overview: PRN IVF replacment SUMMARY 06/08/2013 02/03/2014 Overview: 52 years old male patient presenting with abdominal pain, acute intramural hematoma in his AAA , his AAA has been progressive now 5.3 cm for surgical vs endovascular repair. History of pulmonary embolism 06/08/2013 01/02/2017 Overview: H/o unprovoked PE in 05/2011: on Coumadin (compliance issues in the past) History of smoking 06/08/2013 3 Overview: History: 2 ppd for many years, quit 3 years ago Cervicalgia 01/15/2013 04/13/2013 Headache(784.0) 01/15/2013 04/13/2013 Atrial fibrillation 06/03/2012 06/18/20 19 Pulmonary embolism 05/19/2011 3 Obesity, unspecified 11/04/2008 013 Screening for unspecified condition 11/21/2007 11/04/2008 Unspecified sleep apnea 04/03/2007 12/09/2012 Overview: Non compliant, intolerant of CPAP machine. GYNECOMASTIA 11/08/2006 11/04/2008 Internal hemorrhoids without mention of complication 10/24/2006 01/02/2017 Tobacco use disorder 10/24/2006 012 documented as of this encounter (statuses as of 05/29/2023) [facility] History of Past illness Narrative* Problem Noted Date Diagnosed Date Resolved Date Obesity, Class II, BMI 35-39.9 04/02/2018 04/05/2021 Sebaceous cyst 09/03/2016 01/02/2017 Lumbar spondylosis 02/05/2014 8 DDD (degenerative disc disease), lumbar 02/05/2014 12/31/2017 Physical deconditioning, mul tifactorial dyspnea 02/03/2014 08/27/2016 Obesity 12/30/2013 05/11/2019 Nasal congestion 12/30/2013 08/27/2016 Visual impairment in both eyes 12/30/2013 08/27/2016 Atelectasis 06/12/2013 02/03/2014 Overview: Extubated in OR. Plan to wean o2 and pep 06/15/13 SaO2 95% on RA. Hypovolemia 06/12/2013 06/15/2013 Overview: PRN IVF replacment SUMMARY 06/08/2013 02/03/2014 Overview: 52 years old male patient presenting with abdominal pain, acute intramural hematoma in his AAA , his AAA has been progressive now 5.3 cm for surgical vs endovascular repair. History of pulmonary embolism 06/08/2013 01/02/2017 Overview: H/o unprovoked PE in 05/2011: on Coumadin (compliance issues in the past) History of smoking 06/08/2013 3 Overview: History: 2 ppd for many years, quit 3 years ago Cervicalgia 01/15/2013 04/13/2013 Headache(784.0) 01/15/2013 04/13/2013 Atrial fibrillation 06/03/2012 06/18/20 19 Pulmonary embolism 05/19/2011 3 Obesity, unspecified 11/04/2008 013 Screening for unspecified condition 11/21/2007 11/04/2008 Unspecified sleep apnea 04/03/200709/2012 Overview: Non compliant, intolerant of CPAP machine. GYNECOMASTIA 11/08/2006 11/04/2008 Internal hemorrhoids without mention of complication 10/24/2006 01/02/2017 Tobacco use disorder 10/24/2006 012 documented as of this encounter (statuses as of 06/07/2023) [facility]2018 History of Past illness Narrative* Problem Noted Date Diagnosed Date Resolved Date Obesity, Class II, BMI 35-39.9 04/02/2018 04/05/2021 Sebaceous cyst 09/03/2016 01/02/2017 Lumbar spondylosis 02/05/2014 8 DDD (degenerative disc disease), lumbar 02/05/2014 12/31/2017 Physical deconditioning, mul tifactorial dyspnea 02/03/2014 08/27/2016 Obesity 12/30/2013 05/11/2019 Nasal congestion 12/30/2013 08/27/2016 Visual impairment in both eyes 12/30/2013 08/27/2016 Atelectasis 06/12/2013 02/03/2014 Overview: Extubated in OR. Plan to wean o2 and pep 06/15/13 SaO2 95% on RA. Hypovolemia 06/12/2013 06/15/2013 Overview: PRN IVF replacment SUMMARY 06/08/2013 02/03/2014 Overview: 52 years old male patient presenting with abdominal pain, acute intramural hematoma in his AAA , his AAA has been progressive now 5.3 cm for surgical vs endovascular repair. History of pulmonary embolism 06/08/2013 01/02/2017 Overview: H/o unprovoked PE in 05/2011: on Coumadin (compliance issues in the past) History of smoking 06/08/2013 3 Overview: History: 2 ppd for many years, quit 3 years ago Cervicalgia 01/15/2013 04/13/2013 Headache(784.0) 01/15/2013 04/13/2013 Atrial fibrillation 06/03/2012 06/18/20 Pulmonary embolism 05/19/2011 3 Obesity, unspecified 11/04/2008 013 Screening for unspecified condition 11/21/2007 11/04/2008 Unspecified sleep apnea 04/03/200709/2012 Overview: Non compliant, intolerant of CPAP machine. GYNECOMASTIA 11/08/2006 11/04/2008 Internal hemorrhoids without mention of complication 10/24/2006 01/02/2017 Tobacco use disorder 10/24/2006 012 documented as of this encounter (statuses as of 06/13/2023) [facility]2018 History of Past illness Narrative* Problem Noted Date Diagnosed Date Resolved Date Obesity, Class II, BMI 35-39.9 04/02/2018 04/05/2021 Sebaceous cyst 09/03/2016 01/02/2017 Lumbar spondylosis 02/05/2014 8 DDD (degenerative disc disease), lumbar 02/05/2014 12/31/2017 Physical deconditioning, mul tifactorial dyspnea 02/03/2014 08/27/2016 Obesity 12/30/2013 05/11/2019 Nasal congestion 12/30/2013 08/27/2016 Visual impairment in both eyes 12/30/2013 08/27/2016 Atelectasis 06/12/2013 02/03/2014 Overview: Extubated in OR. Plan to wean o2 and pep 06/15/13 SaO2 95% on RA. Hypovolemia 06/12/2013 06/15/2013 Overview: PRN IVF replacment SUMMARY 06/08/2013 02/03/2014 Overview: 52 years old male patient presenting with abdominal pain, acute intramural hematoma in his AAA , his AAA has been progressive now 5.3 cm for surgical vs endovascular repair. History of pulmonary embolism 06/08/2013 01/02/2017 Overview: H/o unprovoked PE in 05/2011: on Coumadin (compliance issues in the past) History of smoking 06/08/2013 3 Overview: History: 2 ppd for many years, quit 3 years ago Cervicalgia 01/15/2013 04/13/2013 Headache(784.0) 01/15/2013 04/13/2013 Atrial fibrillation 06/03/2012 06/18/20 Pulmonary embolism 05/19/2011 3 Obesity, unspecified 11/04/2008 013 Screening for unspecified condition 11/21/2007 11/04/2008 Unspecified sleep apnea 04/03/200709/2012 Overview: Non compliant, intolerant of CPAP machine. GYNECOMASTIA 11/08/2006 11/04/2008 Internal hemorrhoids without mention of complication 10/24/2006 01/02/2017 Tobacco use disorder 10/24/2006 012 documented as of this encounter (statuses as of 06/21/2023) [facility] History of Past illness Narrative* Problem Noted Date Diagnosed Date Resolved Date Obesity, Class II, BMI 35-39.9 04/02/2018 04/05/2021 Sebaceous cyst 09/03/2016 01/02/2017 Lumbar spondylosis 02/05/2014 8 DDD (degenerative disc disease), lumbar 02/05/2014 12/31/2017 Physical deconditioning, mul tifactorial dyspnea 02/03/2014 08/27/2016 Obesity 12/30/2013 05/11/2019 Nasal congestion 12/30/2013 08/27/2016 Visual impairment in both eyes 12/30/2013 08/27/2016 Atelectasis 06/12/2013 02/03/2014 Overview: Extubated in OR. Plan to wean o2 and pep 06/15/13 SaO2 95% on RA. Hypovolemia 06/12/2013 06/15/2013 Overview: PRN IVF replacment SUMMARY 06/08/2013 02/03/2014 Overview: 52 years old male patient presenting with abdominal pain, acute intramural hematoma in his AAA , his AAA has been progressive now 5.3 cm for surgical vs endovascular repair. History of pulmonary embolism 06/08/2013 01/02/2017 Overview: H/o unprovoked PE in 05/2011: on Coumadin (compliance issues in the past) History of smoking 06/08/2013 3 Overview: History: 2 ppd for many years, quit 3 years ago Cervicalgia 01/15/2013 04/13/2013 Headache(784.0) 01/15/2013 04/13/2013 Atrial fibrillation 06/03/2012 06/18/20 19 Pulmonary embolism 05/19/2011 3 Obesity, unspecified 11/04/2008 013 Screening for unspecified condition 11/21/2007 11/04/2008 Unspecified sleep apnea 04/03/200709/2012 Overview: Non compliant, intolerant of CPAP machine. GYNECOMASTIA 11/08/2006 11/04/2008 Internal hemorrhoids without mention of complication 10/24/2006 01/02/2017 Tobacco use disorder 10/24/2006 012 documented as of this encounter (statuses as of 06/22/2023) [facility] Diagnosis Chronic diffuse otitis externa of both ears- Primary [facility] Diagnosis Chronic obstructive pulmonary disease, unspecified COPD type (HCC) [facility] Lung nodules Other nonspecific abnormal finding of lung field Cigarette smoker Tobacco use disorder [facility] Diagnosis Lung bullae (HCC)- Primary Emphysematous bleb ILD (interstitial lung disease) (HCC) Postinflammatory pulmonary fibrosis Pulmonary emphysema, unspecified emphysema type (HCC) Current smoker Tobacco use disorder [facility] Diagnosis Esophageal dysphagia Dysphagia, pharyngoesophageal phase [facility] Diagnosis Sick sinus syndrome (HCC)- Primary Sinoatrial node dysfunction Chills without fever Chills (without fever) Need for COVID-19 vaccine [facility] Diagnosis Primary hypertension- Primary Unspecified essential hypertension Chronic bilateral low back pain, unspecified whether sciatica present Hyperlipidemia, unspecified hyperlipidemia type Encounter for immunization Need for other specified prophylactic vaccination against single bacterial disease Need for influenza vaccination Need for prophylactic vaccination and inoculation against influenza Paroxysmal atrial flutter (HCC) Atrial flutter Chronic obstructive pulmonary disease, unspecified COPD type (HCC) [facility] Diagnosis Chronic bilateral low back pain, unspecified whether sciatica present- Primary Lumbar spondylosis Lumbosacral spondylosis without myelopathy Lumbosacral spondylosis without myelopathy [facility] Diagnosis Chronic midline low back pain without sciatica Essential hypertension Unspecified essential hypertension Hypothyroidism, unspecified type [facility] Diagnosis Primary hypertension- Primary Unspecified essential hypertension [facility] Diagnosis ILD (interstitial lung disease) ([facility])- Primary 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 Cigarette smoker Tobacco use disorder [facility] Diagnosis Lumbar spondylosis- Primary Lumbosacral spondylosis without myelopathy Lumbar facet arthropathy Lumbosacral spondylosis without myelopathy Other chronic pain Myalgia Mylagia and myositis, unspecified Right leg pain Pain in limb Chronic pain of right knee [facility] Diagnosis Lumbar spondylosis- Primary Lumbosacral spondylosis without myelopathy Lumbar facet arthropathy Lumbosacral spondylosis without myelopathy DDD (degenerative disc disease), lumbar Degeneration of lumbar or lumbosacral intervertebral disc Lumbar spondylosis Lumbosacral spondylosis without myelopathy Lumbar facet arthropathy Lumbosacral spondylosis without myelopathy DDD (degenerative disc disease), lumbar Degeneration of lumbar or lumbosacral intervertebral disc [facility] Diagnosis COPD with exacerbation (HCC)- Primary Obstructive chronic bronchitis with exacerbation Lumbar spondylosis Lumbosacral spondylosis without myelopathy Lumbar facet arthropathy Lumbosacral spondylosis without myelopathy DDD (degenerative disc disease), lumbar Degeneration of lumbar or lumbosacral intervertebral disc [facility] Diagnosis ILD (interstitial lung disease) (HCC)- Primary 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 Cigarette smoker Tobacco use disorder documented in this encounter [facility] note* Diagnosis Irritation of left eye- Primary Other ill-defined disorder of eye documented in this encounter [facility] note* Diagnosis Dysphagia, unspecified type Odynophagia Dysphagia, unspecified documented in this encounter [facility] note* Diagnosis Dysphagia, oropharyngeal phase- Primary documented in this encounter [facility] note* Diagnosis Gastroesophageal reflux disease, unspecified whether esophagitis present- Primary Dysphagia, unspecified type documented in this encounter [facility] note* Diagnosis Esophageal dysphagia- Primary Dysphagia, pharyngoesophageal phase Lung bullae (HCC) Emphysematous bleb Helicobacter pylori (H. pylori) infection Helicobacter pylori (H. pylori) documented in this encounter [facility] note* Diagnosis COPD with exacerbation (HCC)- Primary Obstructive chronic bronchitis with exacerbation Lung bullae (HCC) Emphysematous bleb Interstitial pulmonary disease (HCC) Postinflammatory pulmonary fibrosis documented in this encounter [facility] note* Diagnosis Dysphagia, unspecified type Odynophagia Dysphagia, unspecified documented in this encounter [facility] note* Diagnosis Other dysphagia- Primary documented in this encounter [facility] note* Diagnosis Lower resp. tract infection- Primary Other diseases of respiratory system, not elsewhere classified Emphysema with both acute and chronic bronchitis (HCC) Obstructive chronic bronchitis with acute bronchitis documented in this encounter [facility] note* Diagnosis ILD (interstitial lung disease) (HCC) Postinflammatory pulmonary fibrosis [facility] Diagnosis ILD (interstitial lung disease) (HCC) Postinflammatory pulmonary fibrosis documented in this encounter [facility] note* Diagnosis ILD (interstitial lung disease) (HCC)- Primary Postinflammatory pulmonary fibrosis Stage 1 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 (HCC) Bulla of lung (HCC) Emphysematous bleb documented in this encounter [facility] note* Diagnosis NO SHOW- Primary documented in this encounter [facility] note* Diagnosis Chronic obstructive pulmonary disease, unspecified COPD type (HCC)- Primary Congestion of respiratory tract Subacute cough Cough SOB (shortness of breath) Shortness of breath Wheezing [facility] Diagnosis Gastroesophageal reflux disease, unspecified whether esophagitis present- Primary Dysphagia, unspecified type documented in this encounter [facility] note* Diagnosis Primary osteoarthritis of first carpometacarpal joint of right hand- Primary Primary localized osteoarthrosis, hand Forearm tendonitis Other tenosynovitis of hand and wrist documented in this encounter [facility] note* Diagnosis Other dysphagia- Primary documented in this encounter [facility] note* Diagnosis Preop cardiovascular exam- Primary Pre-operative cardiovascular examination LOVE (dyspnea on exertion) Other dyspnea and respiratory abnormality Paroxysmal atrial flutter (HCC) Atrial flutter Primary hypertension Unspecified essential hypertension Mixed hyperlipidemia Ascending aorta dilatation (HCC) Thoracic aortic ectasia History of repair of aneurysm of abdominal aorta using endovascular stent graft Blood vessel replaced by other means VANIA (obstructive sleep apnea) AHI 71 Obstructive sleep apnea (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 Long-term (current) use of anticoagulants documented in this encounter [facility] note* Diagnosis Dysphagia, unspecified type documented in this encounter [facility] note* Diagnosis Chronic midline low back pain without sciatica Essential hypertension Unspecified essential hypertension Hypothyroidism, unspecified type documented in this encounter [facility] for referral (narrative)* Diagnostic Procedure Only (Routine) - Closed Specialty Diagnoses / Procedures Referred By Marisa Referred To Contact XR IMAGING Diagnoses Esophageal dysphagia Procedures XR ESOPHAGRAM RADIOLOGIC EXAM ESOPHAGUS SINGLE CONTRAST STUDY Tg Albrecht MD [address] [place] [address] Xr Imaging Referral ID Status Reason Start Date Expiration Date V isits Requested Visits Authorized [id number] Closed Auto-Generate d Referral 10/24/2021 11/23/2022 1 1 [facility] for referral (narrative)* Outpatient Procedure (Routine) - Authorized Specialty Diagnoses / Procedures Referred By Marisa mejia Referred To Contact [facility] Diagnoses ILD (interstitial lung disease) (HCC) Procedures LUNG DIFFUSION CAPACITY (DLCO) DIFFUSING CAPACITY Tg Albrecht MD [address] [place] [address] [address] Referral ID Status Reason Start Date Expiration Date Visits Requested Visits Authorized [id number] Authorized Auto-Generat ed Referral 10/12/2022 11/11/2023 1 1 * Outpatient Procedure (Routine) - Pending Review Specialty Diagnoses / Procedures Referred By Contac t Referred To Contact [facility] Diagnoses ILD (interstitial lung disease) (HCC) Procedures LUNG VOLUMES Tg Albrecht MD [address] [place] [address] [address] Referral ID Status Reason Start Date Expiration Date Visits Requested Visits Authorized [id number] Pending Review Auto-Generat ed Referral 10/12/2022 11/11/2023 1 1 * Outpatient Procedure (Routine) - Authorized Specialty Diagnoses / Procedures Referred By Contac t Referred To Contact [facility] Diagnoses ILD (interstitial lung disease) (HCC) Procedures SPIROMETRY WITH DILATOR IF OBSTRUCTED BRNCDILAT RSPSE SPMTRY PRE&POST-BRNCDILAT ADMN Tg Albrecht MD [address] [place] [address] [address] Referral ID Status Reason Start Date Expiration Date Visits Requested Visits Authorized [id number] Authorized Auto-Generat ed Referral 10/12/2022 11/11/2023 1 1 * Consult, Test, Treat (Routine) - Pending Review Specialty Diagnoses / Procedures Referred By Contac t Referred To Contact Rheumatology Diagnoses ILD (interstitial lung disease) (HCC) Procedures CONSULT TO RHEUM/IMMUN DISEASE OFFICE/OUTPATIENT NEW HIGH MDM 60-74 MINUTES Tg Albrecht MD [address] [place] [address] Referral ID Status Reason Start Date Expiration Date Visits Requested Visits Authorized [id number] Pending Review PCP Requested Referral 10/12/2022 10/12/2023 1 1 [facility] for referral (narrative)* Outpatient Procedure (Routine) - Authorized Specialty Diagnoses / Procedures [facility] Diagnoses Dysphagia, unspecified type Procedures EGD DIAGNOSTIC ESOPHAGOGASTRODUODENOSC OPY TRANSORAL DIAGNOSTIC Arjun Polanco MD [address] [place] [address] [address] Referral ID Status Reason Start Date Expiration Date Visits Requested Visits Authorized [id number] Authorized Auto-Generat ed Referral 02/01/2023 02/02/2024 1 1 [facility] for referral (narrative)* Outpatient Procedure (Routine) - Closed Specialty Diagnoses / Procedures Referred By [facility] t Referred To Contact [facility] Diagnoses Dysphagia, unspecified type Procedures EGD DIAGNOSTIC ESOPHAGOGASTRODUODENOSC OPY TRANSORAL DIAGNOSTIC Arjun Polanco MD [address] [place] [address] [address] Referral ID Status Reason Start Date Expiration Date V isits Requested Visits Authorized [id number] Closed Auto-Generate d Referral 02/01/2023 02/02/2024 1 1 T [facility] for referral (narrative)* Outpatient Procedure (Urgent) - Pending Review Specialty Diagnoses / Procedures [facility] Diagnoses COPD with exacerbation (HCC) Lung bullae (HCC) Interstitial pulmonary disease (HCC) Procedures SIX MINUTE WALK CARDIOPULMONARY EXERCISE STRESS David King MD, PhD [address] [facility] [address] [place] [address] [address] Referral ID Status Reason Start Date Expiration Date Visits Requested Visits Authorized [id number] Pending Review Auto-Generat ed Referral 02/15/2023 03/16/2024 1 1 * Outpatient Procedure (Routine) - Authorized Specialty Diagnoses / Procedures Referred By Contac t Referred To Contact [facility] Diagnoses COPD with exacerbation (HCC) Lung bullae (HCC) Interstitial pulmonary disease (HCC) Procedures LUNG DIFFUSION CAPACITY (DLCO) DIFFUSING CAPACITY David King MD, PhD [address] [facility] [address] [place] [address] [address] Referral ID Status Reason Start Date Expiration Date Visits Requested Visits Authorized [id number] Authorized Auto-Generat ed Referral 02/15/2023 03/16/2024 1 1 * Outpatient Procedure (Routine) - Authorized Specialty Diagnoses / Procedures Referred By Contac t Referred To Contact [facility] Diagnoses COPD with exacerbation (HCC) Lung bullae (HCC) Interstitial pulmonary disease (HCC) Procedures SPIROMETRY BASELINE ONLY SPMTRY W/VC EXPIRATORY LEAH W/WO MXML VOL VNTJ David King MD, PhD [address] [facility] [address] [place] [address] Respiratory [place] [address] [place] [id number] Referral ID Status Reason Start Date Expiration Date Visits Requested Visits Authorized [id number] Authorized Auto-Generat ed Referral 02/15/2023 03/16/2024 1 1 [facility] for referral (narrative)* Diagnostic Procedure Only (Routine) - Closed Specialty Diagnoses / Procedures Referred By Contac t Referred To Contact XR IMAGING Diagnoses Dysphagia, unspecified type Odynophagia Procedures XR ESOPHAGRAM RADIOLOGIC EXAM ESOPHAGUS SINGLE CONTRAST STUDY Carolina Tapia MD [address] [place] [id number] Xr Imaging [place] [address] Referral ID Status Reason Start Date Expiration Date V isits Requested Visits Authorized [id number] Closed Auto-Generate d Referral 01/10/2023 02/09/2024 1 1 [facility] for referral (narrative)* Outpatient Procedure (Routine) - Authorized Specialty Diagnoses / Procedures [facility] Diagnoses Dysphagia, unspecified type Procedures MANOMETRY ESOPHAGEAL ESOPHAGEAL MOTILITY STUDY W/INTERP&RPT Arjun Polanco MD [address] [place] [address] [facility] [place] [address] [place] [address] Referral ID Status Reason Start Date Expiration Date Visits Requested Visits Authorized [id number] Authorized Auto-Generat ed Referral 05/10/2023 05/10/2024 1 1 T [facility] for referral (narrative)* Diagnostic Procedure Only (Urgent) - Closed Specialty Diagnoses / Procedures [facility] Ref[facility] To Contact XR IMAGING Diagnoses Primary osteoarthritis of first carpometacarpal joint of right hand Procedures XR WRIST INJURY 4V PA/LAT/OBL/SCAPH RIGHT RADEX WRIST COMPLETE MINIMUM 3 VIEWS Magui Lopez PA-C [address] [place] [address] Xr Imaging [facility] Referral ID Status Reason Start Date Expiration Date V isits Requested Visits Authorized [id number] Closed Auto-Generate d Referral 05/15/2023 06/13/2024 1 1 [facility] for referral (narrative)* Outpatient Procedure (Routine) - Authorized Specialty Diagnoses / Procedures [facility] Referred To Contact GASTROENTEROLOGY Diagnoses Other dysphagia Procedures MANOMETRY ESOPHAGEAL ESOPHAGEAL MOTILITY STUDY W/INTERP&RPT Arjun Polanco MD [address] [place] [address] [place] [id number] [address] [place] [address] Referral ID Status Reason Start Date Expiration Date Visits Requested Visits Authorized [id number] Authorized Auto-Generat ed Referral 04/08/2023 07/07/2023 1 1 [facility] for referral (narrative)* Diagnostic Procedure Only (Routine) - Pending Review Specialty Diagnoses / Procedures Referred By Contac t Referred To Contact MOLECULAR & FUNCTIONAL IMAGING Diagnoses Preop cardiovascular exam LOVE (dyspnea on exertion) Primary hypertension Mixed hyperlipidemia History of repair of aneurysm of abdominal aorta using endovascular stent graft VANIA (obstructive sleep apnea) Paroxysmal atrial flutter (HCC) Ascending aorta dilatation (HCC) Procedures NM CARDIAC PERF STRESS/PHARM MYOCARDIAL SPECT MULTIPLE STUDIES Marilee Batres DO [address] [place] [address] [facility] Functional [facility] [address] [place] [address] Referral ID Status Reason Start Date Expiration Date Visits Requested Visits Authorized [id number] Pending Review Auto-Generat ed Referral 06/26/2024 1 1 [facility] for visit Narrative* Diagnostic Procedure Only (Routine) - Closed Specialty Diagnoses / Procedures Referred By Contleigha t Referred To Contact XR IMAGING Diagnoses Esophageal dysphagia Procedures XR ESOPHAGRAM RADIOLOGIC EXAM ESOPHAGUS SINGLE CONTRAST STUDY Tg Albrecht MD [address] [place] [address] Xr Imaging Referral ID Status Reason Start Date Expiration Date V isits Requested Visits Authorized [id number] Closed Auto-Generate d Referral 10/24/2021 11/23/2022 1 1 [facility] for visit Narrative* Diagnostic Procedure Only (Routine) - Closed Specialty Diagnoses / Procedures Referred By Contac t Referred To Contact XR IMAGING Diagnoses Dysphagia, unspecified type Odynophagia Procedures XR ESOPHAGRAM RADIOLOGIC EXAM ESOPHAGUS SINGLE CONTRAST STUDY Carolina Tapia MD [address] [place] [address] [place] [address] Referral ID Status Reason Start Date Expiration Date V isits Requested Visits Authorized [id number] Closed Auto-Generate d Referral 01/10/2023 02/09/2024 1 1 [facility] Summary Purpose Family History No Family History Records FoundNo Family History Records FoundNo Family History Records FoundNo Family History Records Found Advance Directives No Advanced Directives Records FoundDocuments on File Type Date Recorded 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 Advance Directive(s) 01/13/2020 4:24 PM Documents on File Type Date Recorded 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 Advance Directive(s) 01/13/2020 4:24 PM Reason for Referral Specialty Diagnoses / Procedures Referred By Contac t Referred To Contact CT IMAGING Diagnoses Lung nodules Cigarette smoker Procedures CT CHEST WO IVCON DIAGNOSTIC COMPUTED TOMOGRAPHY THORAX W/O Tg Rutledge MD [address] [place] [address] Ct Imaging Referral ID Status Reason Start Date Expiration Date V isits Requested Visits Authorized [id number] Closed Auto-Generate d Referral 10/24/2021 11/23/2022 1 1 Specialty Diagnoses / Procedures Referred By Contac t Referred To Contact Pain Management Diagnoses Chronic bilateral low back pain, unspecified whether sciatica present Procedures CONSULT TO PAIN MGT OFFICE/OUTPATIENT NEW HIGH MDM 60-74 MINUTES Older, Kamini, [employer] [address] [place] [address] Referral ID Status Reason Start Date Expiration Date Visits Requested Visits Authorized [id number] Pending Review PCP Requested Referral 03/28/2022 03/28/2023 1 1 Specialty Diagnoses / Procedures Referred By Contac t Referred To Contact CT IMAGING Diagnoses Interstitial pulmonary disease (HCC) Procedures CT CHEST WO IVCON DIAGNOSTIC COMPUTED TOMOGRAPHY THORAX W/O Tg Rutledge MD [address] [place] [address] Ct Imaging Referral ID Status Reason Start Date Expiration Date Visits Requested Visits Authorized [id number] Authorized Auto-Generat ed Referral 10/29/2022 06/27/2023 1 1 Specialty Diagnoses / Procedures Referred By Contac t Referred To Contact Rheumatology Diagnoses ILD (interstitial lung disease) (HCC) Procedures CONSULT TO RHEUM/IMMUN DISEASE OFFICE/OUTPATIENT NEW HIGH MDM 60-74 MINUTES Tg Albrecht MD [address] [place] [address] Referral ID Status Reason Start Date Expiration Date Visits Requested Visits Authorized [id number] Pending Review PCP Requested Referral 2 05/28/2023 1 1 Specialty Diagnoses / Procedures Referred By Contact Referred To Contact Cardiothoracic Surgery Diagnoses Esophageal dysphagia Lung bullae (HCC) Procedures CONSULT TO CARDIOTHORACIC SURGERY Arjun Polanco MD [address] [place] [address] [id number] [place] [address] Referral ID Status Reason Start Date Expiration Date Visits Requested Visits Authorized [id number] Ref Not Required PCP Requested Referral 02/14/2023 02/14/2024 1 1 Specialty Diagnoses / Procedures Referred By Contac t Referred To Contact CT IMAGING Diagnoses Interstitial pulmonary disease (HCC) Procedures CT CHEST WO IVCON DIAGNOSTIC COMPUTED TOMOGRAPHY THORAX W/O CNTRST Tg Albrecht MD [address] [place] [address] Ct Imaging [place] [address] Referral ID Status Reason Start Date Expiration Date V isits Requested Visits Authorized [id number] Closed Auto-Generate d Referral 10/29/2022 06/27/2023 1 1 Medications Administered Section Inactive Administered Medications - up to 3 most recent administrations Medication Order MAR Action Action Date Dose Rate Site dexAMETHasone sodium phosphate 10 mg injection (DECADRON) 10 mg, INTRAVENOUS, EVERY 6 HOURS, First dose on Sat02/08/23 at 1230, Until Discontinued, Preprocedure Given 02/08/2023 12:17 PM EDT 10 mg diphenhydrAMINE 50 mg injection (BENADRYL) 50 mg, INTRAVENOUS, ONCE, 1 dose, On Sat02/08/23 at 1230, Preprocedure Given 02/08/2023 12:15 PM EDT 50 mg famotidine 20 mg injection (PEPCID) 20 mg, INTRAVENOUS, PRE-OP ONCE, 1 dose, On Sat02/08/23 at 1230, REFRIGERATE, Preprocedure Given 02/08/2023 12:18 PM EDT 20 mg ipratropium-albuterol 3 mL nebulizer solution (DUONEB) 3 mL, INHALATION, ONCE, 1 dose, On Sat02/08/23 at 1230, PROTECT FROM LIGHT. The unit-dose vial should remain stored in the protective foil pouch until time of use., Preprocedure Given 02/08/2023 12:16 PM EDT 3 mL lactated ringers iv infusion 30 mL/hr, INTRAVENOUS, CONTINUOUS, Starting on Sat02/08/23 at 1200, Until Sat02/08/23 at 1247, Preprocedure Restarted 02/08/2023 12:27 PM EDT Health Concerns Infection Onset Date Last Indicated Resolved Time COVID-19 Confirmed 03/24/2023 03/24/2023 Additional Source Comments (unrecognized sect ion and content) No Status Records FoundNo Status Records FoundNo Status Records FoundNo Status Records Found INFORMATION SOURCE (unrecogn ized section and content) DATE CREATED AUTHOR AUTHOR'S ORGANIZ ATION 09/14/2020 [facility] DATE CREATED AUTHOR AUTHOR'S ORGANIZ ATION 06/23/2023 [facility] DATE CREATED AUTHOR AUTHOR'S ORGANIZ ATION 07/23/2023 [facility] Source Comments (unrecognize d section and content) In the event this informatio n is protected by the Federal Confidentiality of Alcohol and Drug Abuse Patient Records regulations: The Federal rules restrict any use of the information to criminally investigate or prosecute any alcohol or drug abuse patient.[facility] the event this information is protected by the Federal Confidentiality of Alcohol and Drug Abuse Patient Records regulations: The Federal rules restrict any use of the information to criminally investigate or prosecute any alcohol or drug abuse patient.[facility] the event this information is protected by the Federal Confidentiality of Alcohol and Drug Abuse Patient Records regulations: The Federal rules restrict any use of the information to criminally investigate or prosecute any alcohol or drug abuse patient.[facility] the event this information is protected by the Federal Confidentiality of Alcohol and Drug Abuse Patient Records regulations: The Federal rules restrict any use of the information to criminally investigate or prosecute any alcohol or drug abuse patient.[facility]In the event this information is protected by the Federal Confidentiality of Alcohol and Drug Abuse Patient Records regulations: The Federal rules restrict any use of the information to criminally investigate or prosecute any alcohol or drug abuse patient.[facility]ighIn the event this information is protected by the Federal Confidentiality of Alcohol and Drug Abuse Patient Records regulations: The Federal rules restrict any use of the information to criminally investigate or prosecute any alcohol or drug abuse patient.[facility]ighIn the event this information is protected by the Federal Confidentiality of Alcohol and Drug Abuse Patient Records regulations: The Federal rules restrict any use of the information to criminally investigate or prosecute any alcohol or drug abuse patient.[facility]ighIn the event this information is protected by the Federal Confidentiality of Alcohol and Drug Abuse Patient Records regulations: The Federal rules restrict any use of the information to criminally investigate or prosecute any alcohol or drug abuse patient.[facility]ighIn the event this information is protected by the Federal Confidentiality of Alcohol and Drug Abuse Patient Records regulations: The Federal rules restrict any use of the information to criminally investigate or prosecute any alcohol or drug abuse patient.[facility]ighIn the event this information is protected by the Federal Confidentiality of Alcohol and Drug Abuse Patient Records regulations: The Federal rules restrict any use of the information to criminally investigate or prosecute any alcohol or drug abuse patient.[facility]ighIn the event this information is protected by the Federal Confidentiality of Alcohol and Drug Abuse Patient Records regulations: The Federal rules restrict any use of the information to criminally investigate or prosecute any alcohol or drug abuse patient.[facility]ighIn the event this information is protected by the Federal Confidentiality of Alcohol and Drug Abuse Patient Records regulations: The Federal rules restrict any use of the information to criminally investigate or prosecute any alcohol or drug abuse patient.[facility]ighIn the event this information is protected by the Federal Confidentiality of Alcohol and Drug Abuse Patient Records regulations: The Federal rules restrict any use of the information to criminally investigate or prosecute any alcohol or drug abuse patient.[facility]ighIn the event this information is protected by the Federal Confidentiality of Alcohol and Drug Abuse Patient Records regulations: The Federal rules restrict any use of the information to criminally investigate or prosecute any alcohol or drug abuse patient.[facility]ighIn the event this information is protected by the Federal Confidentiality of Alcohol and Drug Abuse Patient Records regulations: The Federal rules restrict any use of the information to criminally investigate or prosecute any alcohol or drug abuse patient.[facility]ighIn the event this information is protected by the Federal Confidentiality of Alcohol and Drug Abuse Patient Records regulations: The Federal rules restrict any use of the information to criminally investigate or prosecute any alcohol or drug abuse patient.[facility]ighIn the event this information is protected by the Federal Confidentiality of Alcohol and Drug Abuse Patient Records regulations: The Federal rules restrict any use of the information to criminally investigate or prosecute any alcohol or drug abuse patient.[facility]ighIn the event this information is protected by the Federal Confidentiality of Alcohol and Drug Abuse Patient Records regulations: The Federal rules restrict any use of the information to criminally investigate or prosecute any alcohol or drug abuse patient.[facility]ighIn the event this information is protected by the Federal Confidentiality of Alcohol and Drug Abuse Patient Records regulations: The Federal rules restrict any use of the information to criminally investigate or prosecute any alcohol or drug abuse patient.[facility]ighIn the event this information is protected by the Federal Confidentiality of Alcohol and Drug Abuse Patient Records regulations: The Federal rules restrict any use of the information to criminally investigate or prosecute any alcohol or drug abuse patient.[facility]ighIn the event this information is protected by the Federal Confidentiality of Alcohol and Drug Abuse Patient Records regulations: The Federal rules restrict any use of the information to criminally investigate or prosecute any alcohol or drug abuse patient.[facility]ighIn the event this information is protected by the Federal Confidentiality of Alcohol and Drug Abuse Patient Records regulations: The Federal rules restrict any use of the information to criminally investigate or prosecute any alcohol or drug abuse patient.[facility]ighIn the event this information is protected by the Federal Confidentiality of Alcohol and Drug Abuse Patient Records regulations: The Federal rules restrict any use of the information to criminally investigate or prosecute any alcohol or drug abuse patient.[facility]ighIn the event this information is protected by the Federal Confidentiality of Alcohol and Drug Abuse Patient Records regulations: The Federal rules restrict any use of the information to criminally investigate or prosecute any alcohol or drug abuse patient.[facility]ighIn the event this information is protected by the Federal Confidentiality of Alcohol and Drug Abuse Patient Records regulations: The Federal rules restrict any use of the information to criminally investigate or prosecute any alcohol or drug abuse patient.[facility]ighIn the event this information is protected by the Federal Confidentiality of Alcohol and Drug Abuse Patient Records regulations: The Federal rules restrict any use of the information to criminally investigate or prosecute any alcohol or drug abuse patient.[facility]ighIn the event this information is protected by the Federal Confidentiality of Alcohol and Drug Abuse Patient Records regulations: The Federal rules restrict any use of the information to criminally investigate or prosecute any alcohol or drug abuse patient.[facility]ighIn the event this information is protected by the Federal Confidentiality of Alcohol and Drug Abuse Patient Records regulations: The Federal rules restrict any use of the information to criminally investigate or prosecute any alcohol or drug abuse patient.[facility]ighIn the event this information is protected by the Federal Confidentiality of Alcohol and Drug Abuse Patient Records regulations: The Federal rules restrict any use of the information to criminally investigate or prosecute any alcohol or drug abuse patient.[facility]ighIn the event this information is protected by the Federal Confidentiality of Alcohol and Drug Abuse Patient Records regulations: The Federal rules restrict any use of the information to criminally investigate or prosecute any alcohol or drug abuse patient.[facility]ighIn the event this information is protected by the Federal Confidentiality of Alcohol and Drug Abuse Patient Records regulations: The Federal rules restrict any use of the information to criminally investigate or prosecute any alcohol or drug abuse patient.[facility]ighIn the event this information is protected by the Federal Confidentiality of Alcohol and Drug Abuse Patient Records regulations: The Federal rules restrict any use of the information to criminally investigate or prosecute any alcohol or drug abuse patient.[facility]ighIn the event this information is protected by the Federal Confidentiality of Alcohol and Drug Abuse Patient Records regulations: The Federal rules restrict any use of the information to criminally investigate or prosecute any alcohol or drug abuse patient.[facility]ighIn the event this information is protected by the Federal Confidentiality of Alcohol and Drug Abuse Patient Records regulations: The Federal rules restrict any use of the information to criminally investigate or prosecute any alcohol or drug abuse patient.[facility]ighIn the event this information is protected by the Federal Confidentiality of Alcohol and Drug Abuse Patient Records regulations: The Federal rules restrict any use of the information to criminally investigate or prosecute any alcohol or drug abuse patient.[facility]ighIn the event this information is protected by the Federal Confidentiality of Alcohol and Drug Abuse Patient Records regulations: The Federal rules restrict any use of the information to criminally investigate or prosecute any alcohol or drug abuse patient.[facility]ighIn the event this information is protected by the Federal Confidentiality of Alcohol and Drug Abuse Patient Records regulations: The Federal rules restrict any use of the information to criminally investigate or prosecute any alcohol or drug abuse patient.[facility]ighIn the event this information is protected by the Federal Confidentiality of Alcohol and Drug Abuse Patient Records regulations: The Federal rules restrict any use of the information to criminally investigate or prosecute any alcohol or drug abuse patient.[facility]ighIn the event this information is protected by the Federal Confidentiality of Alcohol and Drug Abuse Patient Records regulations: The Federal rules restrict any use of the information to criminally investigate or prosecute any alcohol or drug abuse patient.[facility]ighIn the event this information is protected by the Federal Confidentiality of Alcohol and Drug Abuse Patient Records regulations: The Federal rules restrict any use of the information to criminally investigate or prosecute any alcohol or drug abuse patient.[facility] the event this information is protected by the Federal Confidentiality of Alcohol and Drug Abuse Patient Records regulations: The Federal rules restrict any use of the information to criminally investigate or prosecute any alcohol or drug abuse patient.[facility]ighIn the event this information is protected by the Federal Confidentiality of Alcohol and Drug Abuse Patient Records regulations: The Federal rules restrict any use of the information to criminally investigate or prosecute any alcohol or drug abuse patient.[facility]ighIn the event this information is protected by the Federal Confidentiality of Alcohol and Drug Abuse Patient Records regulations: The Federal rules restrict any use of the information to criminally investigate or prosecute any alcohol or drug abuse patient.[facility]ighIn the event this information is protected by the Federal Confidentiality of Alcohol and Drug Abuse Patient Records regulations: The Federal rules restrict any use of the information to criminally investigate or prosecute any alcohol or drug abuse patient.[facility]ighIn the event this information is protected by the Federal Confidentiality of Alcohol and Drug Abuse Patient Records regulations: The Federal rules restrict any use of the information to criminally investigate or prosecute any alcohol or drug abuse patient.[facility]ighIn the event this information is protected by the Federal Confidentiality of Alcohol and Drug Abuse Patient Records regulations: The Federal rules restrict any use of the information to criminally investigate or prosecute any alcohol or drug abuse patient.[facility]ighIn the event this information is protected by the Federal Confidentiality of Alcohol and Drug Abuse Patient Records regulations: The Federal rules restrict any use of the information to criminally investigate or prosecute any alcohol or drug abuse patient.[facility]ighIn the event this information is protected by the Federal Confidentiality of Alcohol and Drug Abuse Patient Records regulations: The Federal rules restrict any use of the information to criminally investigate or prosecute any alcohol or drug abuse patient.[facility]ighIn the event this information is protected by the Federal Confidentiality of Alcohol and Drug Abuse Patient Records regulations: The Federal rules restrict any use of the information to criminally investigate or prosecute any alcohol or drug abuse patient.[facility]ighIn the event this information is protected by the Federal Confidentiality of Alcohol and Drug Abuse Patient Records regulations: The Federal rules restrict any use of the information to criminally investigate or prosecute any alcohol or drug abuse patient.[facility]ighIn the event this information is protected by the Federal Confidentiality of Alcohol and Drug Abuse Patient Records regulations: The Federal rules restrict any use of the information to criminally investigate or prosecute any alcohol or drug abuse patient.[facility]ighIn the event this information is protected by the Federal Confidentiality of Alcohol and Drug Abuse Patient Records regulations: The Federal rules restrict any use of the information to criminally investigate or prosecute any alcohol or drug abuse patient.[facility]ighIn the event this information is protected by the Federal Confidentiality of Alcohol and Drug Abuse Patient Records regulations: The Federal rules restrict any use of the information to criminally investigate or prosecute any alcohol or drug abuse patient.[facility]ighIn the event this information is protected by the Federal Confidentiality of Alcohol and Drug Abuse Patient Records regulations: The Federal rules restrict any use of the information to criminally investigate or prosecute any alcohol or drug abuse patient.[facility]ighIn the event this information is protected by the Federal Confidentiality of Alcohol and Drug Abuse Patient Records regulations: The Federal rules restrict any use of the information to criminally investigate or prosecute any alcohol or drug abuse patient.[facility]ighIn the event this information is protected by the Federal Confidentiality of Alcohol and Drug Abuse Patient Records regulations: The Federal rules restrict any use of the information to criminally investigate or prosecute any alcohol or drug abuse patient.[facility]ighIn the event this information is protected by the Federal Confidentiality of Alcohol and Drug Abuse Patient Records regulations: The Federal rules restrict any use of the information to criminally investigate or prosecute any alcohol or drug abuse patient.[facility]ighIn the event this information is protected by the Federal Confidentiality of Alcohol and Drug Abuse Patient Records regulations: The Federal rules restrict any use of the information to criminally investigate or prosecute any alcohol or drug abuse patient.[facility]ighIn the event this information is protected by the Federal Confidentiality of Alcohol and Drug Abuse Patient Records regulations: The Federal rules restrict any use of the information to criminally investigate or prosecute any alcohol or drug abuse patient.[facility]ighIn the event this information is protected by the Federal Confidentiality of Alcohol and Drug Abuse Patient Records regulations: The Federal rules restrict any use of the information to criminally investigate or prosecute any alcohol or drug abuse patient.[facility]ighIn the event this information is protected by the Federal Confidentiality of Alcohol and Drug Abuse Patient Records regulations: The Federal rules restrict any use of the information to criminally investigate or prosecute any alcohol or drug abuse patient.[facility]ighIn the event this information is protected by the Federal Confidentiality of Alcohol and Drug Abuse Patient Records regulations: The Federal rules restrict any use of the information to criminally investigate or prosecute any alcohol or drug abuse patient.[facility]ighIn the event this information is protected by the Federal Confidentiality of Alcohol and Drug Abuse Patient Records regulations: The Federal rules restrict any use of the information to criminally investigate or prosecute any alcohol or drug abuse patient.[facility]ighIn the event this information is protected by the Federal Confidentiality of Alcohol and Drug Abuse Patient Records regulations: The Federal rules restrict any use of the information to criminally investigate or prosecute any alcohol or drug abuse patient.[facility]ighIn the event this information is protected by the Federal Confidentiality of Alcohol and Drug Abuse Patient Records regulations: The Federal rules restrict any use of the information to criminally investigate or prosecute any alcohol or drug abuse patient.[facility]ighIn the event this information is protected by the Federal Confidentiality of Alcohol and Drug Abuse Patient Records regulations: The Federal rules restrict any use of the information to criminally investigate or prosecute any alcohol or drug abuse patient.[facility]ighIn the event this information is protected by the Federal Confidentiality of Alcohol and Drug Abuse Patient Records regulations: The Federal rules restrict any use of the information to criminally investigate or prosecute any alcohol or drug abuse patient.[facility]ighIn the event this information is protected by the Federal Confidentiality of Alcohol and Drug Abuse Patient Records regulations: The Federal rules restrict any use of the information to criminally investigate or prosecute any alcohol or drug abuse patient.[facility]ighIn the event this information is protected by the Federal Confidentiality of Alcohol and Drug Abuse Patient Records regulations: The Federal rules restrict any use of the information to criminally investigate or prosecute any alcohol or drug abuse patient.[facility]ighIn the event this information is protected by the Federal Confidentiality of Alcohol and Drug Abuse Patient Records regulations: The Federal rules restrict any use of the information to criminally investigate or prosecute any alcohol or drug abuse patient.[facility] the event this information is protected by the Federal Confidentiality of Alcohol and Drug Abuse Patient Records regulations: The Federal rules restrict any use of the information to criminally investigate or prosecute any alcohol or drug abuse patient.[facility] the event this information is protected by the Federal Confidentiality of Alcohol and Drug Abuse Patient Records regulations: The Federal rules restrict any use of the information to criminally investigate or prosecute any alcohol or drug abuse patient.[facility] the event this information is protected by the Federal Confidentiality of Alcohol and Drug Abuse Patient Records regulations: The Federal rules restrict any use of the information to criminally investigate or prosecute any alcohol or drug abuse patient.[facility] the event this information is protected by the Federal Confidentiality of Alcohol and Drug Abuse Patient Records regulations: The Federal rules restrict any use of the information to criminally investigate or prosecute any alcohol or drug abuse patient.[facility] Reason for Visit (unrecogniz ed section and content) Reason Comments Consult bilateral ear pain/ drainage- getting worse, sx for the last few years Reason Comments Spirometry Specialty Diagnoses / Procedures Referred By Contac t Referred To Contact [facility] Diagnoses Stage 1 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 (HCC) Procedures SPIROMETRY WITH DILATOR IF OBSTRUCTED BRNCDILAT RSPSE SPMTRY PRE&POST-BRNCDILAT ADMN Tg Albrecht MD [address] [place] [address] [facility] [place] [address] [place] [address] Referral ID Status Reason Start Date Expiration Date V isits Requested Visits Authorized [id number] Closed Auto-Generate d Referral 10/24/2021 11/23/2022 [address] Specialty Diagnoses / Procedures Referred By Contac t Referred To Contact CT IMAGING Diagnoses Lung nodules Cigarette smoker Procedures CT CHEST WO IVCON DIAGNOSTIC COMPUTED TOMOGRAPHY THORAX W/O CNTRST Tg Albrecht MD [id number] Imaging Referral ID Status Reason Start Date Expiration Date V isits Requested Visits Authorized [id number] Closed Auto-Generate d Referral 10/24/2021 11/23/2022 1 1 Reason Comments Established Patient COPD Reason Comments Results Reason Comments Discussion Reason Onset Date Comments ENROLLMENT/HAH 03/05/2022 Reason Onset Date Comments F/U 6 months Immunizations 03/28/2022 Flu vaccination Reason Comments Future Appointment Reason Onset Date Comments community monitoring 05/09/2022 telephonic Reason Onset Date Comments Refill Request 05/23/2022 Reason Comments blood pressure follow up Reason Comments Recheck Reason Comments Denial Reason Onset Date Comments community monitoring 06/06/2022 telephonic Reason Comments Back Pain Reason Comments Benefits Approved Reason Onset Date Comments community monitoring 07/04/2022 telephonic Reason Onset Date Comments community monitoring 08/01/2022 CDM telepho marck Reason Comments Patient Question Reason Onset Date Comments community monitoring 08/16/2022 CDM telepho marck Reason Onset Date Comments community monitoring 09/12/2022 CDM telepho marck Reason Onset Date Comments community monitoring 09/14/2022 CDM telepho marck Reason Comments Refill Request Reason Onset Date Comments community monitoring 10/10/2022 CDM telepho marck Reason Onset Date Comments Opened In Error 10/12/2022 Reason Onset Date Comments [facility] monitoring 10/12/2022 CDM telepho marck Reason Comments Established Patient ILD Reason Onset Date Comments [facility] monitoring 10/25/2022 CDM telepho marck Reason Onset Date Comments [facility] monitoring 11/09/2022 CDM telepho amrck Reason Onset Date Comments [facility] monitoring 12/06/2022 CDM telepho marck Reason Comments Eye Problem Pt reproted foreign body sensation (LT) eye, denied injury, onset AM, visual exam . Reason Onset Date Comments [facility] 01/09/2023 Check in call Reason Onset Date Comments Population Health Navigation Outreach 01/14/2023 [place] [facility] Reason Comments New Patient Dysphagia Specialty Diagnoses / Procedures Referred By Marisa mejia Referred To Contact Gastroenterology Diagnoses Dysphagia, unspecified type Odynophagia Procedures CONSULT TO GASTROENTEROLOGY OFFICE/OUTPATIENT NEW HIGH MDM 60-74 MINUTES Carolina Tapia MD [address] [place] [address] Referral ID Status Reason Start Date Expiration Date Visits Requested Visits Authorized [id number] Pending Review PCP Requested Referral 01/10/2023 01/10/2024 1 1 Reason Comments Speech Instrumental Swallow Eval Speech Discharge Specialty Diagnoses / Procedures Referred By Marisa mejia Referred To Contact XR IMAGING Diagnoses Dysphagia, unspecified type Odynophagia Procedures XR MODIFIED BARIUM SWALLOW W SPEECH THERAPY RADIOLOGIC EXAM SWALLOW FUNCTION CONTRAST STUDY Carolina Tapia MD [address] [place] [address] Xr Imaging Referral ID Status Reason Start Date Expiration Date V isits Requested Visits Authorized [id number] Closed Auto-Generate d Referral 01/10/2023 02/09/2024 1 1 Reason Onset Date Comments [facility] 02/04/2023 Check in call Specialty Diagnoses / Procedures Referred By Marisa mejia Referred To Contact Diagnoses Dysphagia, unspecified Procedures ESOPHAGOGASTRODUODENOSCOPY TRANSORAL DIAGNOSTIC [facility] [address] [place] [address] Referral ID Status Reason Start Date Expiration Date Visits Re quested Visits Authorized [id number] 1 1 Reason Comments Results Discussed recent EGD results Reason Comments Consult Appointment Confirmation Reason Comments Appointment Missed a clinic appo intment due to ED visit Reason Comments Consult Reason Onset Date Comments CDM 03/21/2023 Check in call Reason Comments Cough With body chills, sn eezing, congestion. Started Specialty Diagnoses / Procedures Referred By Contac t Referred To Contact [facility] Diagnoses ILD (interstitial lung disease) ([facility]) Procedures SPIROMETRY WITH DILATOR IF OBSTRUCTED BRNCDILAT RSPSE SPMTRY PRE&POST-BRNCDILAT ADMN Tg Albrecht MD [address] [place] [address] [place] [id number] Referral ID Status Reason Start Date Expiration Date V isits Requested Visits Authorized [id number] Closed Auto-Generate d Referral 10/12/2022 11/11/2023 1 1 Specialty Diagnoses / Procedures [facility] Diagnoses ILD (interstitial lung disease) ([facility]) Procedures LUNG VOLUMES PLETHYSMOGRAPHY LUNG VOLUMES W/WO AIRWAY RESIST Tg Albrecht MD [address] [place] [address] [place] [address] Referral ID Status Reason Start Date Expiration Date V isits Requested Visits Authorized [id number] Closed Auto-Generate d Referral 04/23/2023 07/07/2023 1 1 Specialty Diagnoses / Procedures [facility] Diagnoses ILD (interstitial lung disease) ([facility]) Procedures LUNG DIFFUSION CAPACITY (DLCO) DIFFUSING CAPACITY Tg Albrecht MD [address] [place] [address] [place] [address] Referral ID Status Reason Start Date Expiration Date V isits Requested Visits Authorized [id number] Closed Auto-Generate d Referral 10/12/2022 11/11/2023 1 1 Reason Comments Established Patient Reason Onset Date Comments Escalation of Care 04/30/2023 Reason Onset Date Comments Escalation of Care 05/01/2023 Reason Onset Date Comments CDM 05/01/2023 Escalation follo w up Reason Onset Date Comments CDM 05/02/2023 Escalation follo w up Reason Comments Orders H.pylori stool Ag te st Reason Comments Established Patient Dysphagia Specialty Diagnoses / Procedures Referred By Contac t Referred To Contact CT IMAGING Diagnoses Interstitial pulmonary disease (HCC) Procedures CT CHEST WO IVCON DIAGNOSTIC COMPUTED TOMOGRAPHY THORAX W/O Tg Rutledge MD [address] [place] [address] [place] [address] Referral ID Status Reason Start Date Expiration Date V isits Requested Visits Authorized [id number] Closed Auto-Generate d Referral 10/29/2022 06/27/2023 1 1 Reason Comments right wrist pain X 2 weeks Reason Comments Throat Problem Reason Comments New Patient New Pt: re-est care. KURT [address] Batres.cardiac clearance - possible knee surgery. Not scheduled yet.Hx of HTN, HLD, parox A-flutter, repair of aneurysm of AA with stent graftEKG completed today Room 1 Specialty Diagnoses / Procedures Referred By Contac t Referred To Contact Diagnoses establish care Procedures REFERRAL TO [facility] Marilee Batres, [address] [place] [address] [facility] [address] [place] [address] Referral ID Status Reason Start Date Expiration Date V isits Requested Visits Authorized [id number] Closed Financial Clearance Required - OON Payor 03/25/2023 06/23/2023 1 1 Reason Onset Date Comments CDM 06/06/2023 Check in call Reason Onset Date Comments Procedure 06/12/2023 Manometry Esopha geal Specialty Diagnoses / Procedures [facility] Diagnoses Dysphagia, unspecified type Procedures MANOMETRY ESOPHAGEAL ESOPHAGEAL MOTILITY STUDY W/INTERP&RPT Arjun Polanco MD [address] [place] [address] [facility] [place] [address] [place] [address] Referral ID Status Reason Start Date Expiration Date V isits Requested Visits Authorized [id number] Closed Auto-Generate d Referral 05/10/2023 05/10/2024 1 1 Reason Onset Date Comments Refill Request 06/20/2023 Reason Comments Results Manometry results Care Teams (unrecognized sec tion and content) Lobby Attendant Relationship Specialty Start Date End Date Levon Corral MD [address] [place] [address] PCP - General Internal Medicine 07/22/12 Lobby Attendant Relationship Specialty Start Date End Date Levon Corral MD [address] [place] [address] PCP - General Internal Medicine 07/22/12 Lobby Attendant Relationship Specialty Start Date End Date Levon Corral MD [address] [place] [address] PCP - General Internal Medicine 07/22/12 Lobby Attendant Relationship Specialty Start Date End Date Levon Corral MD [address] [place] [address] PCP - General Internal Medicine 07/22/12 Lobby Attendant Relationship Specialty Start Date End Date Levon Corral MD [address] [place] [address] PCP - General Internal Medicine 07/22/12 Lobby Attendant Relationship Specialty Start Date End Date Levon Corral MD [address] [place] [address] PCP - General Internal Medicine 07/22/12 Lobby Attendant Relationship Specialty Start Date End Date Levon Corral MD [address] [place] [address] PCP - General Internal Medicine 07/22/12 Lobby Attendant Relationship Specialty Start Date End Date Levon Corral MD [address] [place] [address] PCP - General Internal Medicine 07/22/12 Lobby Attendant Relationship Specialty Start Date End Date Levon Corral MD [address] [place] [address] PCP - General Internal Medicine 07/22/12 Vic Martinez, RN [address] [place] [address] Media Assistant Internal Medicine 03/06/22 Lobby Attendant Relationship Specialty Start Date End Date Levon Corral MD [address] [place] [address] PCP - General Internal Medicine 07/22/12 Vic Martinez, RN [address] [place] [address] Media Assistant Internal Medicine 03/06/22 Lobby Attendant Relationship Specialty Start Date End Date Levon Corral MD [address] [place] [address] PCP - General Internal Medicine 07/22/12 Vic Martinez, RN [address] [place] [address] Media Assistant Internal Medicine 03/06/22 Lobby Attendant Relationship Specialty Start Date End Date Levon Corral MD [address] [place] [address] PCP - General Internal Medicine 07/22/12 Vic Martinez, RN [address] [place] [address] Media Assistant Internal Medicine 03/06/22 Lobby Attendant Relationship Specialty Start Date End Date Levon Corral MD [address] [place] [address] PCP - General Internal Medicine 07/22/12 Vic Martinez, RN [address] [place] [address] Media Assistant Internal Medicine 03/06/22 Lobby Attendant Relationship Specialty Start Date End Date Corral, Francisco, MD [address] [place] [address] PCP - General Internal Medicine 07/22/12 Vic Martinez, RN [address] [place] [address] Media Assistant Internal Medicine 03/06/22 Lobby Attendant Relationship Specialty Start Date End Date Levon Corral MD [address] [place] [address] PCP - General Internal Medicine 07/22/12 Vic Martinez, RN [address] [place] [address] Media Assistant Internal Medicine 03/06/22 Lobby Attendant Relationship Specialty Start Date End Date Levon Corral MD [address] [place] [address] PCP - General Internal Medicine 07/22/12 Vic Martinez, RN [address] [place] [address] Media Assistant Internal Medicine 03/06/22 Lobby Attendant Relationship Specialty Start Date End Date Levon Corral MD [address] [place] [address] PCP - General Internal Medicine 07/22/12 Vic Martinez, RN [address] [place] [address] Media Assistant Internal Medicine 03/06/22 Lobby Attendant Relationship Specialty Start Date End Date Levon Corral MD [address] [place] [address] PCP - General Internal Medicine 07/22/12 Vic Martinez, RN [address] [place] [address] Media Assistant Internal Medicine 03/06/22 Lobby Attendant Relationship Specialty Start Date End Date Levon Corral MD [address] [place] [address] PCP - General Internal Medicine 07/22/12 Vic Martinez, RN [address] [place] [address] Media Assistant Internal Medicine 03/06/22 Lobby Attendant Relationship Specialty Start Date End Date Levon Corral MD [address] [place] [address] PCP - General Internal Medicine 07/22/12 Vic Martinez, RN [address] [place] [address] Media Assistant Internal Medicine 03/06/22 Lobby Attendant Relationship Specialty Start Date End Date Levon Corral MD [address] [place] [address] PCP - General Internal Medicine 07/22/12 Vic Martinez, RN [address] [place] [address] Media Assistant Internal Medicine 03/06/22 Lobby Attendant Relationship Specialty Start Date End Date Levon Corral MD [address] [place] [address] PCP - General Internal Medicine 07/22/12November, Corie Hendrickson RN [address] [place] [address] Media Assistant Unspecified 12/12/22 Lobby Attendant Relationship Specialty Start Date End Date Levon Corral MD [address] [place] [address] PCP - General Internal Medicine 07/22/12November, Corie Hendrickson RN [address] [place] [address] Media Assistant Unspecified 12/12/22 Lobby Attendant Relationship Specialty Start Date End Date Levon Corral MD [address] [place] [address] PCP - General Internal Medicine 07/22/12November, Corie Hendrickson RN [address] [place] [address] Media Assistant Unspecified 12/12/22 Lobby Attendant Relationship Specialty Start Date End Date Levon Corral MD [address] [place] [address] PCP - General Internal Medicine 07/22/12November, Corie Hendrickson RN [address] [place] [address] Media Assistant Unspecified 12/12/22 Lobby Attendant Relationship Specialty Start Date End Date Levon Corral MD [address] [place] [address] PCP - General Internal Medicine 07/22/12November, Corie Hendrickson RN [address] [place] [address] Media Assistant Unspecified 12/12/22 Lobby Attendant Relationship Specialty Start Date End Date Levon Corral MD [address] [place] [address] PCP - General Internal Medicine 07/22/12November, Corie Hendrickson RN [address] [place] [address] Media Assistant Unspecified 12/12/22 Lobby Attendant Relationship Specialty Start Date End Date Levon Corral MD [address] [place] [address] PCP - General Internal Medicine 07/22/12November, Corie Hendrickson RN [address] [place] [address] Media Assistant Unspecified 12/12/22 Lobby Attendant Relationship Specialty Start Date End Date Levon Corral MD [address] [place] [address] PCP - General Internal Medicine 07/22/12November, Corie Hendrickson RN [address] [place] [address] Media Assistant Unspecified 12/12/22 Lobby Attendant Relationship Specialty Start Date End Date Levon Corral MD [address] [place] [address] PCP - General Internal Medicine 07/22/12November, Corie Hendrickson RN [address] [place] [address] Media Assistant Unspecified 12/12/22 Lobby Attendant Relationship Specialty Start Date End Date Levon Corral MD [address] [place] [address] PCP - General Internal Medicine 07/22/12November, Corie Hendrickson RN [address] [place] [address] Media Assistant Unspecified 12/12/22 Lobby Attendant Relationship Specialty Start Date End Date Levon Corral MD [address] [place] [address] PCP - General Internal Medicine 07/22/12November, Corie Hendrickson RN [address] [place] [address] Media Assistant Unspecified 12/12/22 Lobby Attendant Relationship Specialty Start Date End Date Levon Corral MD [address] [place] [address] PCP - General Internal Medicine 07/22/12November, Corie Hendrickson RN [address] [place] [address] Media Assistant Unspecified 12/12/22 Lobby Attendant Relationship Specialty Start Date End Date Levon Corral MD [address] [place] [address] PCP - General Internal Medicine 07/22/12November, Corie Hendrickson RN [address] [place] [address] Media Assistant Unspecified 12/12/22 Lobby Attendant Relationship Specialty Start Date End Date Levon Corral MD [address] [place] [address] PCP - General Internal Medicine 07/22/12November, Corie Hendrickson RN [address] [place] [address] Media Assistant Unspecified 12/12/22 Lobby Attendant Relationship Specialty Start Date End Date Levon Corral MD [address] [place] [address] PCP - General Internal Medicine 07/22/12November, Corie Hendrickson RN [address] [place] [address] Media Assistant Unspecified 12/12/22 Lobby Attendant Relationship Specialty Start Date End Date Levon Corral MD [address] [place] [address] PCP - General Internal Medicine 07/22/12November, Corie Hendrickson RN [address] [place] [address] Media Assistant Unspecified 12/12/22 Lobby Attendant Relationship Specialty Start Date End Date Levon Corral MD [address] [place] [address] PCP - General Internal Medicine 07/22/12November, Corie Hendrickson RN [address] [place] [address] Media Assistant Unspecified 12/12/22 Lobby Attendant Relationship Specialty Start Date End Date Levon Corral MD [address] [place] [address] PCP - General Internal Medicine 07/22/12November, Corie Hendrickson RN [address] [place] [address] Media Assistant Unspecified 12/12/22 Lobby Attendant Relationship Specialty Start Date End Date Levon Corral MD [address] [place] [address] PCP - General Internal Medicine 07/22/12 Vic Martinez RN [address] [place] [address] Media Assistant Internal Medicine 03/06/22 Lobby Attendant Relationship Specialty Start Date End Date Levon Corral MD [address] [place] [address] PCP - General Internal Medicine 07/22/12November, Corie Hendrickson RN [address] [place] [address] Media Assistant Unspecified 12/12/22 Lobby Attendant Relationship Specialty Start Date End Date Levon Corral MD [address] [place] [address] PCP - General Internal Medicine 07/22/12November, Corie Hendrickson RN [address] [place] [address] Media Assistant Unspecified 12/12/22 Lobby Attendant Relationship Specialty Start Date End Date Levon Corral MD [address] [place] [address] PCP - General Internal Medicine 07/22/12November, Corie Hendrickson RN [address] [place] [address] Media Assistant Unspecified 12/12/22 FOR RECORDS PERTAINING TO PATIENTS WHO ARE OR HAVE BEEN ENROLLED IN A CHEMICAL DEPENDENCY/SUBSTANCEABUSE PROGRAM, SOME INFORMATION MAY BE OMITTED. This clinical summary was aggregated from multiple sources. Caution should be exercised in using it in the provision of clinical care. This summary normalizes information from multiple sources, and as a consequence, information in this document may materially change the coding, format and clinical context of patient data. In addition, data may be omitted in some cases. CLINICAL DECISIONS SHOULD BE BASED ON THE PRIMARY CLINICAL RECORDS. [facility], [facility]. provides no warranty or guarantee of the accuracy or completeness of information in this document.
[2023-08-06 08:36] VITALS: BP 153/88; PULSE 47; RESP 11; O2SAT 96
[2023-08-06 08:42] LABS: AST(SGOT) 16 U/L (15-37); Alanine Aminotransfer ALT/SGPT 22 U/L (16-61); Albumin, Serum 3.3 g/dL (3.2-5.0); Alkaline Phosphatase 59 U/L (45-117); Globulin 3.8 g/dL (2.2-4.2); Lipase 64 U/L (13-75); Protein, Total 7.1 g/dL (6.4-8.2)
[2023-08-06 10:06] LABS: Reflex Troponin-HS? (from REC) Y
[2023-08-06 10:33] VITALS: PULSE 45; RESP 14; O2SAT 94
[2023-08-06 10:34] LABS: Troponin-I HS 16 pg/mL (3.0-78.0)
[2023-08-06 10:58] VITALS: BP 141/76; PULSE 82; RESP 16; O2SAT 98
== END 2023-08-06 10:59 | disposition home or self-care (01) ==
PROVIDERS: Emergency Provider Student in an Organized Health Care Education/Training Program; PCP Internal Medicine; Visit Provider Student in an Organized Health Care Education/Training Program
DX: R07.9 Chest pain, unspecified (principal); F17.210 Nicotine dependence, cigarettes, uncomplicated; M54.9 Dorsalgia, unspecified; R10.13 Epigastric pain; R06.00 Dyspnea, unspecified; E03.9 Hypothyroidism, unspecified; I10 Essential (primary) hypertension
CPT/HCPCS: 71045; 80048; 80076; 83690; 84484; 85025; 87631; 93005; 99284; A4216

== ENCOUNTER 2024-06-16 19:15 | Emergency (ER) | payer MEDICARE, MEDICAID, SELFPAY ==
[2024-06-16 19:16] VITALS: BP 161/73; PULSE 62; RESP 18; TEMP 36.4; O2SAT 97; BMI 32.5
--- NOTE | 2024-06-16 21:27 | EDS_ITS ---
HPI History of Present Illness Chief Complaint: Ear Problem Informant: patient Onset/Context/Timing Onset: Days (3) Context: Gradual Onset Timing: Continuous Quality: Aching Location: Diffuse Worsened by: Coughing Relieved by: Nothing Narrative Narrative: Patient presents with a headache that has been getting worse over the past 3 days. Patient states he cracked his neck and then developed a headache after that. Patient states he has been having a diffuse headache. Patient also admits to some drainage out of his ears. Patient states it is white. Patient admits to some pain in both ears. Patient states his headache is worse with coughing. Patient denies any paresthesias or weakness. Patient denies any visual changes. [facility] Medical History (Updated 06/16/24 @ 23:[address] Guru Cedeno, ) Marijuana smoker Atrial flutter Back pain Hypertension Hypothyroidism Home Medications ?Medication ?Instructions ?Recorded ?Last Taken ?Type amitriptyline 10 mg tablet 25 mg PO QHS 06/23/13 10/30/16 History Lovastatin [Mevacor] 40 mg PO QHS 11/18/14 10/30/16 History lisinopril 5 mg tablet 10 mg PO DAILY 11/18/14 10/31/16 History docusate sodium 50 mg capsule 50 mg PO DAILY 07/10/16 Unknown History (Stool Softener) levothyroxine 150 mcg tablet 150 mcg PO DAILY 11/01/16 Unknown History apixaban 5 mg tablet 5 mg PO DAILY 07/12/19 Unknown History gabapentin 300 mg capsule 300 mg PO Q6H 10/08/19 Unknown History methocarbamol 500 mg tablet 500 mg PO Q8H #14 tabs 09/27/22 Unknown Rx Allergy/AdvReac Type Severity Reaction Status Date / Time No Known Allergies Allergy Verified 06/16/24 19:16 Surgical History (Updated 06/16/24 @ 22:[address] Gruu Cedeno DO) Hx of inguinal herniorrhaphy Social History (Updated 06/16/24 @ 22:[address] Guru Cedeno DO) household members: spouse Smoking Status: Current some day smoker tobacco type: cigarettes substance use type: marijuana ROS ROS ED Constitutional Constitutional ED: Reports chills; Denies fever(s) Eyes Eyes: Denies blurry vision or change in vision ENT ENT ED: Reports ear pain bilateral; Denies rhinorrhea or sore throat Cardiovascular Cardiovascular: Denies chest pain or palpitations Respiratory/Chest Respiratory/Chest: Reports cough; Denies dyspnea Gastrointestinal Gastrointestinal: Denies nausea or vomiting Genitourinary Genitourinary ED: Denies dysuria or hematuria Musculoskeletal Musculoskeletal: Reports back pain and neck pain Integumentary Denies abscess or rash Neurologic Neurologic: Reports headache(s); Denies weakness Allergic/Immunologic Allergic/Immunologic ED: Denies mouth swelling or urticaria EXAM Physical Exam Const Vital Signs: 06/16/24 19:16 06/16/24 23:00 06/16/24 23:00 Temperature 97.5 F L Temperature Source Temporal Pulse Rate 62 45 L Respiratory Rate 18 16 Blood Pressure 161/73 H 123/82 H Blood Pressure Mean 102 95 Pulse Ox 97 95 95 Oxygen Delivery Method Room Air Room Air Room Air Positive well nourished and well developed General Appearance ED: well developed and NAD HEENT Reports moist mucous membranes HEENT Narrative: There is cerumen in the external auditory canals bilaterally. There is some mild edema of the external ears bilaterally. There is no pain with manipulation of the external ears. The tympanic membranes were not well-visualized due to the cerumen. There is no active drainage. Neck supple and no JVD Resp normal respiratory effort and clear to auscultation bilaterally Cardio regular rate and regular rhythm GI non-tender and non-distended Palpation: soft Neuro oriented x3, CN's II-XII intact bilaterally and no sensory deficits noted Sensorium / Orientation: alert Motor Exam: strength 5/5 throughout Psych mental status grossly normal MDM MDM MDM Narrative Medical decision making narrative: Differential diagnosis includes intracranial bleeding, tension headache, migraine headache, temporal arteritis, mastoiditis, pneumonia, bronchitis, viral illness, and cervical strain. CT scan of the brain will be obtained to assess for intracranial bleeding. CBC will be obtained to assess for leukocytosis and anemia. Basic metabolic profile will be obtained to assess for electrolyte abnormality renal function. Sed rate will be obtained to assess for temporal arteritis. COVID-19, influenza, and RSV PCR will be obtained to assess for viral illness. Chest x-ray will be obtained to assess for pneumonia and pneumothorax. Lab Data Attestation: I reviewed the patient's lab results. Lab results narrative: CBC was reviewed. There is a slight leukocytosis of 11.5. The remainder is within normal limits. Basic metabolic profile was reviewed and was essentially within normal limits. PT with INR and PTT were reviewed and were within normal limits. Sed rate was reviewed and was slightly elevated at 23. COVID-19 PCR was reviewed and was negative. Influenza PCR was reviewed and was negative for influenza A and influenza B. RSV PCR was reviewed and was negative. Labs: Laboratory Results - last 24 hr 06/16/24 22:10 WBC 11.5 H RBC 4.86 Hgb 15.3 Hct 44.2 MCV 90.9 MCH 31.5 MCHC 34.6 RDW Std Deviation 45.0 H RDW Coeff of Celeste 13.4 Plt Count 218 MPV 10.3 Immature Gran % (Auto) 0.400 Neut % (Auto) 53.4 Lymph % (Auto) 28.0 [place] % (Auto) 12.5 H Eos % (Auto) 4.5 Baso % (Auto) 1.2 H Absolute Neuts (auto) 6.1 Absolute Lymphs (auto) 3.21 Nucleated RBC % 0 ESR 23 H PT 13.9 INR 1.1 APTT 26.2 Sodium 140 Potassium 3.6 Chloride 110 H Carbon Dioxide 27.0 Anion Gap 3 L BUN 16 Creatinine 0.75 Estim Creat Clear Calc 115.89 Est GFR (MDRD) Af Amer 135 Est GFR (MDRD) Non-Af 112 BUN/Creatinine Ratio 21.4 H Glucose 71 L Calcium 9.0 Radiography Chest X-Ray - ED: 2 View, Read by ED Physician, Read by Radiologist and Chronic Changes Diagnostic Testing: Clinical Impression(s) from Imaging Studies Brain CT 06/16/24 21:43 IMPRESSION: Chronic involutional changes of the brain. Left subdural hematoma with effacement of the sulci. No shift of midline structures. N.B. : The above Results were Read Back by Jean Carlos Adair MD to Guru Cedeno DO, and understanding confirmed on 06/16/2024 23:00:55 (ET). Electronically Signed: Jean Carlos Adair MD at 23:02 EST , ADDENDUM: 06/16/24 2872 IMPRESSION: Chronic involutional changes of the brain. Left subdural hematoma with effacement of the sulci. No shift of midline structures. N.B. : The above Results were Read Back by Jean Carlos Adair MD to Guru Cedeno DO, and understanding confirmed on 06/16/2024 23:00:55 (ET). Electronically Signed: Jean Carlos Adair MD at 23:02 EST , CT scan of the brain was obtained. There is a subdural hematoma on the left. There is no midline shift.This was interpreted by the radiologist and was also independently reviewed by myself. PA and lateral chest x-ray was obtained. There are 2 views. On my independent interpretation, lung winston showed chronic changes. There is normal cardiac silhouette. Bony thorax is normal. There is no acute process noted. Radiologist also interpreted the x-ray and agrees. Treatment and Re-Evaluation :: Patient was given IV fluids, Reglan, and Benadryl. Patient was advised of his findings. Patient was advised of the need for transfer. Patient recommended a [facility] facility. Case was discussed with [facility] transfer line. Case was discussed with Dr. Agarwal. He accepted the patient to be transferred to ICU at [facility]. He recommended getting a CTA of the head and neck. This was ordered. He also recommended giving the patient some vitamin K to reverse the Eliquis. Patient was given 5 mg of vitamin K orally. Patient will be transferred to [facility] when a bed becomes available. Patient and spouse understand and are agreeable with the plan. All questions were answered. Discharge Plan Triage Chief Complaint: Ear Problem Other Complaint: Headache ED Provider: Guru Cedeno Dx/Rx/DC Orders Clinical Impression: Acute subdural hematoma, Atrial fibrillation, Headache Prescriptions: No Action amitriptyline 10 MG tablet 25 mg PO QHS Patient Comments: mood lisinopril 5 MG tablet 10 mg PO DAILY Patient Comments: blood pressure Lovastatin [Mevacor] 40 MG tablet 40 mg PO QHS Patient Comments: cholesterol Stool Softener 50 MG capsule 50 mg PO DAILY Patient Comments: stool softener levothyroxine 150 MCG tablet 150 mcg PO DAILY Patient Comments: thyroid apixaban 5 MG tablet 5 mg PO DAILY Patient Comments: TAKE 1 TABLET TWICE DAILY gabapentin 300 MG capsule 300 mg PO Q6H methocarbamol 500 mg tablet 500 mg PO Q8H Qty: 14 0RF Primary Care Provider: Levon Corral Referrals: Levon Corral MD [Primary Care Provider] - Print Language: [place] Disposition Disposition: Acute Care Hospital Discharge Location: [facility]
--- NOTE | 2024-06-16 21:43 | CT_ITS ---
STUDY: CT BRAIN WITHOUT CONTRAST REASON FOR EXAM: Male, 63 years old. Headache RADIATION DOSAGE (If Supplied By Facility): CTDIvol = ( 44.99 ) mGy, DLP = ( 897.35 ) mGycm TECHNIQUE: Transaxial CT imaging of the brain was performed without administration of intravenous contrast material. Individualized dose optimization techniques were used for this CT. COMPARISON: July 12, 2019 FINDINGS: Normal soft tissue structures. Normal calvarium. There is stable right orbital floor blowout fracture. There is a 1.5 cm thickness increased density extra-axial fluid collection involving the left frontal, temporal, and parietal regions consistent with subdural hematoma. There is effacement of the sulci. There is no shift of midline structures. There is mild cerebral atrophy with widening of the extra-axial spaces and ventricular dilatation. There are areas of decreased attenuation within the white matter tracts of the supratentorial brain, consistent with microvascular disease changes. Normal basal ganglia and thalami. Normal brainstem. Normal cerebellum. There is intracranial hemorrhage. There are no findings of an acute ischemic infarction. Normal visualized paranasal sinuses. CT/Brain/Head without Contrast IMPRESSION: Chronic involutional changes of the brain. Left subdural hematoma with effacement of the sulci. No shift of midline structures. N.B. : The above Results were Read Back by Jean Carlos Adair MD to Guru Cedeno DO, and understanding confirmed on 06/16/2024 23:00:55 (ET). Electronically Signed: Jean Carlos Adair MD at 23:02 EST ,
[2024-06-16] MEDS: Metoclopramide 10 MG/2 ML Vial IV (22:11)
[2024-06-16] MEDS: DiphenhydrAMINE 50 MG/ML Syringe 25 MG IV (22:11)
--- NOTE | 2024-06-16 22:35 | RAD_ITS ---
STUDY: X-RAY CHEST REASON FOR EXAM: Male, 63 years old. Cough TECHNIQUE: Frontal and lateral views of the chest. COMPARISON: August 06, 2023 FINDINGS: There is hyperinflation of the lungs consistent with chronic obstructive lung disease (COPD). There is stable large bleb in the right upper chest. There is no demonstrated pleural abnormality. Normal size heart. Normal mediastinum and drea. Normal visualized pulmonary arteries. Normal visualized aortic arch and descending thoracic aorta. There are diffuse degenerative changes of the visualized thoracic spine. Normal visualized ribs, clavicles, and shoulders. There is no demonstrated abnormality of the visualized soft tissue structures of the upper abdomen. RAD/Chest PA and Lateral IMPRESSION: Degenerative changes, as described above. No demonstrated acute cardiopulmonary process. Electronically Signed: Jean Carlos Adair MD at 23:44 EST ,
[2024-06-16 22:36] LABS: Erythrocyte Sedimentation Rate 23 mm/hr (0-20)
[2024-06-16 22:37] LABS: Absolute Lymphocyte Count 3.21 X10^3/uL (0.83-4.51); Absolute Neutrophil Count 6.1 X10^3/uL (2.0-7.7); Basophil# 0.14 X10^3/uL; Basophil% 1.2 % (0-1); Eosinophil# 0.51 X10^3/uL; Eosinophils% 4.5 % (0-5); Hematocrit 44.2 % (40-54); Hemoglobin 15.3 g/dL (13.0-16.5); Lymphocyte # 3.21 X10^3/ul (0.83-4.51); Mean Corp Hgb Conc 34.6 g/dL (32-36); Mean Corpuscular Hgb 31.5 pg (27.0-32.0); Mean Corpuscular Volume 90.9 fL (80-94); Mean Platelet Vol. 10.3 fl (6.2-12.0); Monocyte# 1.43 X10^3/uL; Monocyte% 12.5 % (0-10); NRBC Flagged by Analyzer 0 % (0-5); Neutrophil # 6.11 X10^3/uL (2.7-7.7); Neutrophil % 53.4 % (47-70); Platelet Count 218 K/mm3 (150-450); RBC Distribution Width CV 13.4 % (11.6-14.6); Red Blood Count 4.86 M/mm3 (4.6-6.2); White Blood Count 11.5 K/mm3 (4.4-11.0)
[2024-06-16 22:39] LABS: Anion Gap 3 (5-15); BUN 16 mg/dL (7-18); BUN/Creat Ratio 21.4 RATIO (10-20); Chloride 110 mmol/L (98-107); Creatinine, Serum 0.75 mg/dL (0.70-1.30); EST Glomerular Filtration Rate 112 mL/min (>60); Est Glom Filt Rate - Afr Amer 135 mL/min (>60); Estimated Creatinine Clearance 115.89 ml/min; Glucose 71 mg/dL (74-106); Potassium 3.6 mmol/L (3.5-5.1); Sodium Level 140 mmol/L (136-145)
[2024-06-16 22:52] LABS: International Normalized Ratio 1.1; Prothrombin Time (Protime)PT. 13.9 SECONDS (11.7-14.9)
[2024-06-16 22:53] LABS: Partial Thromboplast Time 26.2 Seconds (24.1-36.2)
[2024-06-16 23:00] VITALS: BP 123/82; PULSE 45; RESP 16; O2SAT 95
--- NOTE | 2024-06-16 23:08 | CT_ITS ---
INDICATION: Subdural hematoma EXAMINATION: CTA CAROTIDS AND BRAIN - CTA Head and Neck W/ Contrast Injection (and W/O Contrast Images if performed) TECHNIQUE: Routine CTA of the head and neck was performed with post processing of the angiographic images for volumetric reconstructions. In addition, images were obtained of the [place]. Nascet criteria using the distal ICAs for comparison were used for evaluation of stenoses. 3D reconstructions were reviewed. A radiation dose optimization technique was used for this scan. IV Contrast dosage and agent: 100 cc [id number] COMPARISON: Noncontrast head CT same date, CTA chest 02/24/2023 FINDINGS: --NECK: AORTIC ARCH AND BRANCHES: Vessel origins patent. RIGHT CCA: No occlusion, significant stenosis or dissection. RIGHT ICA: No occlusion, significant stenosis or dissection. LEFT CCA: No occlusion, significant stenosis or dissection. LEFT ICA: No occlusion, significant stenosis or dissection. RIGHT VERTEBRAL ARTERY: No occlusion, significant stenosis or dissection. LEFT VERTEBRAL ARTERY: No occlusion, significant stenosis or dissection. NECK SOFT TISSUES: Unremarkable. LUNG APICES: Stable severe bullous changes. BONES: Mild degenerative changes. --HEAD: --Anterior circulation: ICAs: No significant stenosis at the intracranial/visualized segments. ACAs: No significant stenosis at the visualized segments. ACOM: Not seen. MCAs: No significant stenosis at the visualized segments. --Posterior circulation: PCOMs: Not seen. client service manager: No significant stenosis at the visualized segments. BASILAR ARTERY: No significant stenosis. VERTEBRAL ARTERIES: No significant stenosis at the intradural/visualized segments. No evidence of intracranial aneurysm or vascular malformation. CT/CTA Head AND Neck W/ Contrast IMPRESSION: No significant major vessel vaso-occlusive disease in the head or neck. Electronically Signed: Reynaldo Watkins MD at 0:33 EST ,
[2024-06-16 23:15] VITALS: BP 133/83; PULSE 50; RESP 16; O2SAT 96
[2024-06-16] MEDS: Phytonadione (Vit K1) 5 MG TABLET PO (23:21)
[2024-06-16 23:30] VITALS: BP 140/87; PULSE 44; RESP 16; O2SAT 94
[2024-06-16 23:45] VITALS: BP 156/81; PULSE 50; RESP 16; O2SAT 94
[2024-06-17] VITALS (17 sets, daily range): BP systolic 116–169; BP diastolic 53–92; PULSE 44–62; RESP 14–19; TEMP 36.4; O2SAT 88–97
[2024-06-17] MEDS: hydrALAZINE 20 MG/ML Vial IV ×2 (01:20→02:54)
--- NOTE | 2024-06-17 03:08 | ED.RN ---
CALLED [facility] FOR AN UPDATED ETA, THEY STATED THE CREW WAS 10-15 MIN AWAY.
== END 2024-06-17 03:43 | disposition short-term general hospital (02) ==
PROVIDERS: Emergency Provider Emergency Medicine; PCP Internal Medicine; Visit Provider Emergency Medicine
DX: I62.01 Nontraumatic acute subdural hemorrhage (principal); I48.91 Unspecified atrial fibrillation; F17.210 Nicotine dependence, cigarettes, uncomplicated; I10 Essential (primary) hypertension; R51.9 Headache, unspecified; F12.90 Cannabis use, unspecified, uncomplicated; E03.9 Hypothyroidism, unspecified
CPT/HCPCS: 70450; 70496; 70498; 71046; 80048; 85025; 85610; 85652; 85730; 87631; 96374; 96375; 96376; 99285; Q9967; A4216

== ENCOUNTER 2024-06-22 19:44 | Emergency (ER) | payer MEDICARE, MEDICAID, SELFPAY ==
[2024-06-22] VITALS (7 sets, daily range): BP systolic 125–191; BP diastolic 66–101; PULSE 48–84; RESP 13–20; TEMP 36.6; O2SAT 93–98; BMI 31.8
--- NOTE | 2024-06-22 20:22 | EDS_ITS ---
HPI History of Present Illness Chief Complaint: Headache Informant: patient Onset/Context/Timing Onset: Days Context: Gradual Timing: Continuous Quality -Headache: Positive for Other (Pressure) Location: Left side Worsened by: Bright lights Relieved by: Nothing Associated Symptoms/Injury Associated Symptoms: Positive for Sinus Pressure and Photophobia; Negative for Fever, Nausea, Vomiting, Sore Throat, Numbness, Tingling, Preceding Aura, Visual Changes, Blurred Vision or Visual Loss Narrative Narrative: Patient presents with a headache that has been getting progressively worse over the past several days. Patient was recently seen here and diagnosed with a subdural hematoma. Patient was transferred to [facility]. Patient states he was observed and monitored. Patient states he was started on Keppra for seizure prophylaxis. Patient states his anticoagulation was stopped. Patient states his headache is mainly over the left side. Patient describes it as a pressure. Patient states nothing makes it better and it is worse with lights. Patient denies any nausea or vomiting. Patient denies any paresthesias or weakness. Patient admits to pain in his chest yesterday. Patient states thi s only lasted a few minutes and then resolved. Patient denies any shortness of breath or cough. Patient states he does have some pain into his neck. [facility] Medical History (Updated 06/22/24 @ 23:[address] Guru Cedeno, ) Hx of blood clots Atrial fibrillation Hemorrhagic stroke Marijuana smoker Atrial flutter Back pain Hypertension Hypothyroidism Home Medications ?Medication ?Instructions ?Recorded ?Last Taken ?Type amitriptyline 10 mg tablet 25 mg PO QHS 06/23/13 10/30/16 History Lovastatin [Mevacor] 40 mg PO QHS 11/18/14 10/30/16 History lisinopril 5 mg tablet 10 mg PO DAILY 11/18/14 10/31/16 History docusate sodium 50 mg capsule 50 mg PO DAILY 07/10/16 Unknown History (Stool Softener) levothyroxine 150 mcg tablet 150 mcg PO DAILY 11/01/16 Unknown History methocarbamol 500 mg tablet 500 mg PO Q8H #14 tabs 09/27/22 Unknown Rx duloxetine 30 mg capsule,delayed 30 mg PO DAILY 06/23/24 Unknown History release gabapentin 100 mg capsule 100 mg PO Q8 06/23/24 Unknown History levetiracetam 1,000 mg tablet 1,000 mg PO BID 06/23/24 Unknown History pantoprazole 40 mg tablet,delayed 40 mg PO DAILY 06/23/24 Unknown History release Allergy/AdvReac Type Severity Reaction Status Date / Time No Known Allergies Allergy Verified 06/16/24 19:16 Surgical History Hx of inguinal herniorrhaphy Social History household members: spouse Smoking Status: Current some day smoker tobacco type: cigarettes substance use type: marijuana ROS ROS ED Constitutional Constitutional ED: Denies chills or fever(s) Eyes Eyes: Denies blurry vision or change in vision ENT ENT ED: Denies rhinorrhea or sore throat Cardiovascular Cardiovascular: Reports chest pain; Denies palpitations Respiratory/Chest Respiratory/Chest: Denies cough or dyspnea Gastrointestinal Gastrointestinal: Denies nausea or vomiting Genitourinary Genitourinary ED: Denies dysuria or hematuria Musculoskeletal Musculoskeletal: Reports neck pain; Denies back pain Integumentary Denies abscess or rash Neurologic Neurologic: Reports headache(s); Denies weakness Allergic/Immunologic Allergic/Immunologic ED: Denies mouth swelling or urticaria EXAM Physical Exam Const Vital Signs: 06/22/24 19:45 06/22/24 20:44 06/22/24 20:44 Temperature 97.8 F Temperature Source Temporal Pulse Rate 75 52 L Respiratory Rate 19 H 13 Respiratory Effort Non-Labored Blood Pressure 125/66 H 173/85 H Blood Pressure Mean 85 114 Pulse Ox 98 93 Oxygen Delivery Method Room Air Room Air 06/22/24 21:00 06/22/24 22:00 06/22/24 22:56 Temperature Temperature Source Pulse Rate 56 L 52 L 55 L Respiratory Rate 20 H 17 16 Respiratory Effort Blood Pressure 186/101 H 165/85 H 167/85 H Blood Pressure Mean 129 111 112 Pulse Ox 94 93 93 Oxygen Delivery Method Room Air Room Air Room Air 06/22/24 23:15 06/22/24 23:58 06/23/24 00:00 Temperature Temperature Source Pulse Rate 48 L 84 82 Respiratory Rate 18 15 17 Respiratory Effort Blood Pressure 191/96 H 164/93 H 127/61 H Blood Pressure Mean 127 116 83 Pulse Ox 96 95 96 Oxygen Delivery Method Room Air Room Air Positive well nourished and well developed General Appearance ED: well developed and NAD HEENT Reports normocephalic and moist mucous membranes atraumatic Eyes PERRL and EOMs intact bilaterally Neck supple and no JVD Resp normal respiratory effort and clear to auscultation bilaterally Cardio regular rate and regular rhythm GI non-tender and non-distended Palpation: soft Extremity full ROM Neuro oriented x3, CN's II-XII intact bilaterally and no sensory deficits noted [place] Coma Scale: document GCS findings Spontaneous Obeys Commands Oriented 15 Sensorium / Orientation: awake and alert Speech: speech normal Motor Exam: strength 5/5 throughout Psych mental status grossly normal NIHSS NIHSS Initial: 1a Level of Consciousness: 0 1b LOC Questions (Score 2 if aphasic/stupor): 0 1c LOC Commands (Only score 1st attempt): 0 2 Best Gaze (If aphasic, use reflexive mvmts.): 0 3 Visual: 0 4 Facial Palsy: 0 5 Motor Arm Right (UN = amputation/fusion): 0 5 Motor Arm Left: 0 6 Motor Leg Right: 0 6 Motor Leg Left: 0 8 Sensory (Aphasia/stupor=0 or 1, coma=2): 0 9 Best Language: 0 10 Dysarthria (mute, coma=2, intubated=UN): 0 11 Extinction and Inattention (only scored if +): 0 Total Score: 0 MDM MDM MDM Narrative Medical decision making narrative: Differential diagnosis includes subdural hematoma, mass, migraine headache, electrolyte abnormality, and tension headache. CT scan of the brain will be obtained to assess for increased subdural hematoma. CBC will be obtained to assess for leukocytosis and anemia. Basic metabolic profile will be obtained to assess for electrolyte abnormality and renal function. PT with INR and PTT will be obtained to assess for coagulopathy. Lab Data Attestation: I reviewed the patient's lab results. Lab results narrative: CBC was reviewed and was within normal limits. Basic metabolic profile was reviewed and was essentially within normal limits. PT with INR and PTT were reviewed and were within normal limits. High-sensitivity troponin was reviewed and was normal at 15. Labs: Laboratory Results - last 24 hr 06/22/24 20:57 WBC 10.0 RBC 4.85 Hgb 15.1 Hct 44.1 MCV 90.9 MCH 31.1 MCHC 34.2 RDW Std Deviation 43.3 RDW Coeff of Celeste 13.1 Plt Count 199 MPV 10.1 Immature Gran % (Auto) 0.400 Neut % (Auto) 66.1 Lymph % (Auto) 17.9 L [place] % (Auto) 10.5 H Eos % (Auto) 4.1 Baso % (Auto) 1.0 Absolute Neuts (auto) 6.6 Absolute Lymphs (auto) 1.79 Nucleated RBC % 0 PT 14.2 INR 1.1 APTT 25.6 Sodium 139 Potassium 3.6 Chloride 109 H Carbon Dioxide 26.0 Anion Gap 4 L BUN 17 Creatinine 0.78 Estim Creat Clear Calc 110.29 Est GFR (MDRD) Af Amer 129 Est GFR (MDRD) Non-Af 107 BUN/Creatinine Ratio 21.9 H Glucose 141 H Calcium 9.1 Troponin I High Sens 15 Radiography Diagnostic Testing: Clinical Impression(s) from Imaging Studies Brain CT 06/22/24 21:35 IMPRESSION: Enlarging acute to subacute left subdural hematoma, now causing 13 mm of [id number] midline shift and with associated uncal herniation. Nonstandard communication protocol initiated. Electronically Signed: Alfredo Zendejas MD at 22:20 EST , ADDENDUM: 06/22/247 IMPRESSION: Enlarging acute to subacute left subdural hematoma, now causing 13 mm of [id number] midline shift and with associated uncal herniation. Nonstandard communication protocol initiated. N.B. : The above Results were Read Back by Alfredo Zendejas MD to Guru Cedeno DO, and understanding confirmed on 06/22/2024 22:30:13 (ET). Electronically Signed: Alfredo Zendejas MD at 22:20 EST , CT scan of the brain was obtained. The left subdural hematoma is enlarging and is now causing 13 mm of [id number] midline shift. There is also uncal herniation noted. This was interpreted by the radiologist and was also independently reviewed by myself. EKG Initial EKG: Attestation: I personally reviewed and interpreted this EKG as follows: Interpretation: No Acute Injury Pattern and Sinus Bradycardia (With a first-degree AV block with a rate of 49) Comments: EKG was obtained. On my independent interpretation, it showed a sinus bradycardia with first-degree AV block with a rate of 49. NV interval was prolonged at 260 ms. QRS interval was normal at 94 ms QTc interval is normal at 399 ms. There is left axis deviation at -31. There are no acute ST or T wave changes. Prior EKG tracings: available for review Prior: Unchanged (08/06/2023) Management Discussion w/another healthcare provider: Radiologist Treatment and Re-Evaluation Narrative: Patient was given IV fluids, Reglan, and Benadryl. Patient was advised of his findings. Patient was advised of the need for transfer back to [facility]. Patient had repeat NIH stroke scales done which were all 0. Case was discussed with the transfer line there. I am currently awaiting callback from [facility]. Patient will need to be transferred. Patient is in stable condition. Patient and spouse understand and are agreeable with the plan. All questions were answered. Discharge Plan Triage Chief Complaint: Headache ED Provider: Guru Cedeno Dx/Rx/DC Orders Clinical Impression: Subdural hematoma, Headache, Bradycardia, sinus Prescriptions: No Action amitriptyline 10 MG tablet 25 mg PO QHS Patient Comments: mood lisinopril 5 MG tablet 10 mg PO DAILY Patient Comments: blood pressure Lovastatin [Mevacor] 40 MG tablet 40 mg PO QHS Patient Comments: cholesterol Stool Softener 50 MG capsule 50 mg PO DAILY Patient Comments: stool softener levothyroxine 150 MCG tablet 150 mcg PO DAILY Patient Comments: thyroid methocarbamol 500 mg tablet 500 mg PO Q8H Qty: 14 0RF pantoprazole 40 mg tablet,delayed release (DR/EC) 40 mg PO DAILY gabapentin 100 mg capsule 100 mg PO Q8 duloxetine 30 mg capsule,delayed release(DR/EC) 30 mg PO DAILY levetiracetam 1,000 mg tablet 1,000 mg PO BID Primary Care Provider: Levon Corral Referrals: Levon Corral MD [Primary Care Provider] - Print Language: [place] Disposition Disposition: Acute Care Hospital Discharge Location: [facility]
--- NOTE | 2024-06-22 20:41 | ED.RN ---
PT DISCHARGED FROM [facility] ON SATURDAY AFTER SPONTANEOUS HEAD BLEED. PT STATES THAT HE HAD A FALL ON SATURDAY WHEN HE RETURNED HOME. STATES THAT HE DID NOT HIT HIS HEAD THEN AND DENIES OTHER INJURIES. PT STATES SINCE WE WAS DISCHARGED, HE HAS HAD AN INCREASING HEADACHE. STATES PAIN IS 8/10. STATES HE HAS BEEN REFUSING EAT OR DRINK. PT STATES HE IS NOT HUNGRY. PT STATES HE NEEDS ASSISTANCE TO GET AROUND OR HE IS OFF BALANCE SINCE BEING DISCHARGED FROM THE HOSPITAL. ALSO STATES HE HAS PERIODS OF BLURRY VISION THAT IS WORSE WHEN HE IS MOVING.
[2024-06-22] MEDS: DiphenhydrAMINE 50 MG/ML Syringe 25 MG IV (20:55)
[2024-06-22] MEDS: 0.9% Normal Saline (1000mL) 1,000 ML 999 ML IV (20:55)
[2024-06-22] MEDS: Metoclopramide 10 MG/2 ML Vial IV (20:55)
[2024-06-22 21:06] LABS: Absolute Lymphocyte Count 1.79 X10^3/uL (0.83-4.51); Absolute Neutrophil Count 6.6 X10^3/uL (2.0-7.7); Eosinophil# 0.41 X10^3/uL; Eosinophils% 4.1 % (0-5); Hematocrit 44.1 % (40-54); Hemoglobin 15.1 g/dL (13.0-16.5); Lymphocyte # 1.79 X10^3/ul (0.83-4.51); Lymphocyte % 17.9 % (19-41); Mean Corp Hgb Conc 34.2 g/dL (32-36); Mean Corpuscular Hgb 31.1 pg (27.0-32.0); Mean Corpuscular Volume 90.9 fL (80-94); Mean Platelet Vol. 10.1 fl (6.2-12.0); Monocyte# 1.05 X10^3/uL; Monocyte% 10.5 % (0-10); NRBC Flagged by Analyzer 0 % (0-5); Neutrophil # 6.61 X10^3/uL (2.7-7.7); Neutrophil % 66.1 % (47-70); Platelet Count 199 K/mm3 (150-450); RBC Distribution Width CV 13.1 % (11.6-14.6); RBC Distribution Width SD 43.3 fl (35.1-43.9); Red Blood Count 4.85 M/mm3 (4.6-6.2)
[2024-06-22 21:19] LABS: Anion Gap 4 (5-15); BUN 17 mg/dL (7-18); BUN/Creat Ratio 21.9 RATIO (10-20); Calcium,Total 9.1 mg/dL (8.5-10.1); Chloride 109 mmol/L (98-107); Creatinine, Serum 0.78 mg/dL (0.70-1.30); EST Glomerular Filtration Rate 107 mL/min (>60); Est Glom Filt Rate - Afr Amer 129 mL/min (>60); Estimated Creatinine Clearance 110.29 ml/min; Glucose 141 mg/dL (74-106); Potassium 3.6 mmol/L (3.5-5.1); Sodium Level 139 mmol/L (136-145)
[2024-06-22 21:22] LABS: International Normalized Ratio 1.1; Prothrombin Time (Protime)PT. 14.2 SECONDS (11.7-14.9)
[2024-06-22 21:23] LABS: Partial Thromboplast Time 25.6 Seconds (24.1-36.2)
--- NOTE | 2024-06-22 21:35 | CT_ITS ---
We are attempting to reach an attending provider to discuss findings. An addendum with communication details will be sent when the communication is complete. EXAM: CT HEAD WITHOUT INTRAVENOUS CONTRAST CLINICAL INDICATION: Subdural hematoma TECHNIQUE: Multiple axial images were obtained of the head without intravenous contrast. This CT exam was performed using one or more of the following dose reduction techniques: automated exposure control, adjustment of the mA and/or kV according to patient size, and/or use of iterative reconstruction technique. RADIATION DOSE: Total DLP: 863.60 mGy-cm. COMPARISON: Nonenhanced cranial CT of 06/08/2024. FINDINGS: BRAIN AND EXTRA-AXIAL SPACES: A crescent of extra-axial fluid is again seen overlying the left frontal, parietal and temporal convexity indicating a subdural hematoma; overall size of subdural hematoma has increased . The subdural fluid overlying the left frontal lobe now measures up to 20 mm in thickness. There is less hyperdense acute blood within the subdural hematoma than on the prior study, but with increasing isodense/subacute blood. There is been interval development of 13 mm [id number] shift of the septum pellucidum. The left lateral and third ventricles are now effaced, with increasing dilatation of the right lateral ventricle including the right temporal horn. The cerebral cortical sulci are effaced bilaterally, left greater than right, secondary to edema. There are is now medial protrusion of the left uncus, flattening the left cerebral peduncle indicating uncal herniation. Fourth ventricle is preserved. The cerebellar tonsils are normally positioned. No acute infarction or parenchymal hemorrhage is identified. 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 No linear or depressed skull fracture. No discrete lytic or blastic abnormalities. SINUSES: Minimal mucosal thickening noted at the base of the right maxillary antrum. No paranasal sinus air-fluid levels are identified. MASTOID AIR CELLS: Unremarkable. Clear. ORBITS: Visualized globes, extraocular muscles, optic nerves and retrobulbar fat appear unremarkable. CT/Brain/Head without Contrast IMPRESSION: Enlarging acute to subacute left subdural hematoma, now causing 13 mm of saik-[id number]-[id number] midline shift and with associated uncal herniation. Nonstandard communication protocol initiated. Electronically Signed: Alfredo Zendejas MD at 22:20 EST ,
--- NOTE | 2024-06-22 22:06 | EKG12_ITS ---
Test Reason : HEADACHES Blood Pressure : */* mmHG Vent. Rate : 49 BPM Atrial Rate : 49 BPM P-R Int : 260 ms QRS Dur : 94 ms QT Int : 442 ms P-R-T Axes : 50 -31 84 degrees QTcB Int : 399 ms Sinus bradycardia with 1st degree A-V block Left axis deviation Abnormal ECG When compared with ECG of 06-Aug-2023 07:47, No significant change was found Confirmed by NIKOS MARIE, AALIYAH ([id number]), book editor MEEK VILLAREAL ([id number]) on 06/26/2024 9:57:47 AM Referred By: Confirmed By: AALIYAH KNOTT MD
[2024-06-22 22:29] LABS: Troponin-I HS (w/2H Reflex) 15 pg/mL (3.0-78.0)
[2024-06-22] MEDS: hydrALAZINE 20 MG/ML Vial IV ×2 (23:12→23:26)
[2024-06-22] MEDS: Nicardipine HCl-0.9% Sod Chlor 20 MG/200 ML IV.SOLN 50 MG CONT INF (23:58)
[2024-06-23] VITALS (7 sets, daily range): BP systolic 110–127; BP diastolic 50–76; PULSE 55–89; RESP 12–20; TEMP 36.4; O2SAT 94–97
[2024-06-23 00:10] LABS: Reflex Troponin-HS? (from REC) Y
[2024-06-23] MEDS: Morphine 4 MG/ML Syringe IV (00:23)
--- NOTE | 2024-06-23 00:58 | ED.RN ---
per Dr Tate- discontinue Cardene drip due to BP dropping 110/60.
== END 2024-06-23 01:18 | disposition short-term general hospital (02) ==
PROVIDERS: Emergency Provider Emergency Medicine; PCP Internal Medicine; Visit Provider Emergency Medicine
DX: I62.00 Nontraumatic subdural hemorrhage, unspecified (principal); R00.1 Bradycardia, unspecified; F17.210 Nicotine dependence, cigarettes, uncomplicated; I10 Essential (primary) hypertension; R51.9 Headache, unspecified; E03.9 Hypothyroidism, unspecified; Z79.899 Other long term (current) drug therapy; Z79.890 Hormone replacement therapy
CPT/HCPCS: 70450; 80048; 84484; 85025; 85610; 85730; 93005; 96361; 96374; 96375; 99285; A4216

== ENCOUNTER 2024-08-17 07:33 | Emergency (ER) | payer MEDICARE, MEDICAID, SELFPAY ==
[2024-08-17] VITALS (8 sets, daily range): BP systolic 138–157; BP diastolic 72–90; PULSE 50–78; RESP 16–20; TEMP 36.6–37; O2SAT 93–98; BMI 33.5
--- NOTE | 2024-08-17 07:49 | EKG12_ITS ---
Test Reason : SOB Blood Pressure : */* mmHG Vent. Rate : 60 BPM Atrial Rate : 60 BPM P-R Int : 260 ms QRS Dur : 88 ms QT Int : 440 ms P-R-T Axes : 55 -32 69 degrees QTcB Int : 440 ms Sinus rhythm with 1st degree A-V block Left axis deviation Inferior infarct , age undetermined Abnormal ECG Confirmed by Vineet Muniz ([id number]), brands editor BERTO OVERTON ([id number]) on 08/18/2024 10:05:12 AM Referred By: VALENTIN Confirmed By: Vineet Muniz
--- NOTE | 2024-08-17 07:51 | ED.VIS.DYS ---
HPI History of Present Illness Chief Complaint: Shortness of Breath Informant: patient and spouse/S.O. Narrative Narrative: 63-year-old male presenting around 7:45 AM for trouble breathing and chest pain. He states he typically goes to bed around 4:30 in the morning, and when he did that this morning, without feeling bad prior, he felt short of breath upon lying down. Sitting up is better. However he was able to go to sleep and then woke up at 7 AM with sharp nonpleuritic left-sided chest pain and worsening orthopnea. No leg edema. States he has a cough now but only in the past hour. No known fevers. No GI symptoms. The chest discomfort is gone maybe lasted 20 or 30 minutes total. States he is not feeling as bad now, but the dyspnea is new. He had a subdural hematoma that needed operative intervention 2 months ago he was at [facility] For it. He was on Eliquis prior to that, he is still off of it, and the spouse states there is some debate between his PCP and specialists about whether he should be back on the Eliquis now or not. He has a history of A-fib/a flutter, and he was on Eliquis for that, and they have told him that he has increased stroke risk due to the A-fib without being on Eliquis, however he recently had a brain bleed as well. He has no new neurologic symptoms. He does not have a known history of any other heart problems. [facility] Medical History Hx of blood clots Atrial fibrillation Hemorrhagic stroke Marijuana smoker Atrial flutter Back pain Hypertension Hypothyroidism Home Medications ?Medication ?Instructions ?Recorded ?Last Taken ?Type amitriptyline 10 mg tablet 25 mg PO QHS 06/23/13 10/30/16 History Lovastatin [Mevacor] 40 mg PO QHS 11/18/14 10/30/16 History lisinopril 5 mg tablet 10 mg PO DAILY 11/18/14 10/31/16 History docusate sodium 50 mg capsule 50 mg PO DAILY 07/10/16 Unknown History (Stool Softener) levothyroxine 150 mcg tablet 150 mcg PO DAILY 11/01/16 Unknown History methocarbamol 500 mg tablet 500 mg PO Q8H #14 tabs 09/27/22 Unknown Rx duloxetine 30 mg capsule,delayed 30 mg PO DAILY 06/23/24 Unknown History release gabapentin 100 mg capsule 100 mg PO Q8 06/23/24 Unknown History levetiracetam 1,000 mg tablet 1,000 mg PO BID 06/23/24 Unknown History pantoprazole 40 mg tablet,delayed 40 mg PO DAILY 06/23/24 Unknown History release doxycycline monohydrate 100 mg 100 mg PO BID #14 CAPSULES 08/17/24 Unknown Rx capsule prednisone 10 mg tablet 10 mg PO DAILY #30 TABLETS 08/17/24 Unknown Rx Allergy/AdvReac Type Severity Reaction Status Date / Time No Known Allergies Allergy Verified 08/17/24 07:36 Surgical History Hx of inguinal herniorrhaphy Social History household members: spouse Smoking Status: Light Smoker (<10/day) substance use type: marijuana ROS ROS ED Constitutional Constitutional ED: Denies chills or fever(s) Eyes Eyes: Denies change in vision or diplopia ENT ENT ED: Reports other Details: Bilateral otorrhea x 3 weeks, worse on the left, giving him some trouble hearing ; Denies ear pain, rhinorrhea or sore throat Cardiovascular Cardiovascular: Reports chest pain and orthopnea; Denies leg edema, palpitations or radiating jaw, neck or arm pain Respiratory/Chest Respiratory/Chest: Reports cough, dyspnea, dyspnea on exertion and orthopnea; Denies sputum Gastrointestinal Gastrointestinal: Denies abdominal pain, diarrhea, nausea or vomiting Genitourinary Genitourinary ED: Denies dysuria or hematuria Musculoskeletal Musculoskeletal: Denies back pain or neck pain Integumentary Denies abscess or rash Neurologic Neurologic: Denies headache(s), paresthesias or weakness EXAM Physical Exam Const Vital Signs: 08/17/24 07:35 08/17/24 07:41 08/17/24 07:41 Temperature 97.8 F 97.8 F Temperature Source Temporal Oral Pulse Rate 59 L 78 Respiratory Rate 19 H 16 Respiratory Effort Short of Breath Respiratory Depth Shallow Respiratory Pattern Tachypnea Blood Pressure 155/81 H 155/78 H Blood Pressure Mean 105 103 Pulse Ox 94 98 Oxygen Delivery Method Room Air Room Air 08/17/24 07:49 08/17/24 07:59 08/17/24 08:36 Temperature 97.9 F Temperature Source Oral Pulse Rate 55 L 58 L Respiratory Rate 20 H 16 Respiratory Effort Respiratory Depth Respiratory Pattern Blood Pressure 138/72 H Blood Pressure Mean 94 Pulse Ox 94 Oxygen Delivery Method Room Air Room Air 08/17/24 10:00 08/17/24 10:20 Temperature 98.6 F Temperature Source Oral Pulse Rate 50 L 50 L Respiratory Rate 16 16 Respiratory Effort Respiratory Depth Respiratory Pattern Blood Pressure 139/90 H Blood Pressure Mean 106 Pulse Ox 98 Oxygen Delivery Method Room Air Positive well nourished and well developed General Appearance ED: well developed and NAD HEENT Reports moist mucous membranes HEENT Narrative: View of both tympanic membranes are completely obstructed by a thick immobile yellow substance in both EACs, worse on the left, no discomfort with manipulation of the pinna or the tragus. No obvious edema or erythema of the EAC or tenderness. normocephalic and atraumatic Eyes PERRL and EOMs intact bilaterally Neck full ROM, no lymphadenopathy, supple and no JVD Resp Resp Narrative: Mildly tachypneic but no respiratory distress. Diffuse expiratory wheezes that are more prominent at the bases. Cardio regular rate, regular rhythm and no murmurs GI non-tender and non-distended Auscultation: normoactive bowel sounds Palpation: soft Back/Spine no CVA tenderness General Back: other FROM Extremity normal to inspection General Extremety ED: Negative for edema, pulses abnormal or tenderness General Extremity: Negative for edema or pulses abnormal Neuro oriented x3, CN's II-XII intact bilaterally and no sensory deficits noted Sensorium / Orientation: awake and alert Motor Exam: strength 5/5 throughout Skin no rashes or lesions noted and no wounds MDM MDM MDM Narrative Medical decision making narrative: Differential includes infectious etiologies, pulmonary edema from congestive heart failure, pleural effusion, fluid overload from renal insufficiency, etc. While we were doing workup, I saw that he had COPD and tried a breathing treatment which really helped. His BNP is very low, ruling out acute decompensated congestive heart failure, his EKG shows sinus rhythm right now is not in atrial fibrillation, there is no acute injury pattern, so although I ordered aspirin because of the chest pain he was having, we held off on it, they were concerned because of the recent intracranial bleeding, which I thought was reasonable. Is no troponin is negative we did a 2-hour troponin later and it was negative as well. He was able to lie down on reexamination is feeling much better after albuterol and his vital signs are normal including lack of hypoxemia. Chest x-ray 2 views of my interpretation showed COPD hyperexpansion and chronic changes including a large bleb in the right upper lobe, this is unchanged, and there is no acute pneumonia on my interpretation, radiology in agreement. His renal function is normal, his blood counts are normal, there is no metabolic disturbance, and his COVID/influenza/RSV swab is negative. Certainly conceivable that he is getting a different viral infection. I think providing steroids for COPD including broad-spectrum antibiotics to prevent bacterial supra pneumonia is reasonable, close outpatient follow-up he has an albuterol inhaler at home, he states now at this point that he tried it this morning prior to coming here and it helped a little, and they are comfortable going home with doing this. Additionally, look like he has bilateral cerumen impactions. Nurses irrigated some cerumen out of both sides, he states he can hear better and feels better, but on reexamination is still cannot visualize his TMs. Given appropriate discharge instructions with regards to peroxide in his ears for the next week as well. History & Record Review Discussion w/independent historian: Patient and Significant other Lab Data Attestation: I reviewed the patient's lab results. Labs: Laboratory Results - last 24 hr 08/17/24 08/17/24 07:57 10:10 WBC 9.1 RBC 4.65 Hgb 14.8 Hct 43.6 MCV 93.8 MCH 31.8 MCHC 33.9 RDW Std Deviation 48.4 H RDW Coeff of Celeste 14.1 Plt Count 210 MPV 9.5 Immature Gran % (Auto) 0.400 Neut % (Auto) 51.7 Lymph % (Auto) 31.3 [place] % (Auto) 10.8 H Eos % (Auto) 4.5 Baso % (Auto) 1.3 H Absolute Neuts (auto) 4.7 Absolute Lymphs (auto) 2.85 Nucleated RBC % 0 Sodium 142 Potassium 3.7 Chloride 107 Carbon Dioxide 28.0 Anion Gap 7 BUN 18 Creatinine 1.04 Estim Creat Clear Calc 84.89 Est GFR (MDRD) Af Amer 92 Est GFR (MDRD) Non-Af 76 BUN/Creatinine Ratio 17.3 Glucose 126 H Calcium 9.6 Troponin I High Sens 21 18 B-Natriuretic Peptide 37.7 Radiography Diagnostic Testing: Clinical Impression(s) from Imaging Studies Chest X-Ray 08/17/24 08:15 IMPRESSION: NEGATIVE CHEST Reading Location: [address] Rhythm Strip Rhythm Strip: Sinus Rhythm Rate: 60 Ectopy: None EKG Initial EKG: Attestation: I personally reviewed and interpreted this EKG as follows: Interpretation: Sinus Rhythm, No Acute Injury Pattern and AV Block (1st deg) Discharge Plan Triage Chief Complaint: Shortness of Breath ED Provider: Jean Carlos Panda Dx/Rx/DC Orders Clinical Impression: Acute exacerbation of chronic obstructive pulmonary disease (COPD), Chest pain, unspecified, Acute cough, Bilateral impacted cerumen Instructions: Impacted Earwax, ED COPD Flare Prescriptions: New prednisone 10 mg tablet 10 mg PO DAILY Qty: 30 0RF Rx Instructions: 4 po qd x 3 days, 3 po qd x 3 days, 2 po qd x 3 days, 1 po qd x 3 days doxycycline monohydrate 100 mg capsule 100 mg PO BID Qty: 14 0RF No Action amitriptyline 10 MG tablet 25 mg PO QHS Patient Comments: mood lisinopril 5 MG tablet 10 mg PO DAILY Patient Comments: blood pressure Lovastatin [Mevacor] 40 MG tablet 40 mg PO QHS Patient Comments: cholesterol Stool Softener 50 MG capsule 50 mg PO DAILY Patient Comments: stool softener levothyroxine 150 MCG tablet 150 mcg PO DAILY Patient Comments: thyroid methocarbamol 500 mg tablet 500 mg PO Q8H Qty: 14 0RF pantoprazole 40 mg tablet,delayed release (DR/EC) 40 mg PO DAILY gabapentin 100 mg capsule 100 mg PO Q8 duloxetine 30 mg capsule,delayed release(DR/EC) 30 mg PO DAILY levetiracetam 1,000 mg tablet 1,000 mg PO BID Primary Care Provider: Levon Corral Referrals: Levon Corral MD [Primary Care Provider] - 5-7 Days Print Language: Icelandic Disposition Disposition: Home, Self Care
[2024-08-17] MEDS: Albuterol 2.5 MG/3 ML VIAL.NEB. INHALATION (07:54)
[2024-08-17 08:13] LABS: Absolute Lymphocyte Count 2.85 X10^3/uL (0.83-4.51); Absolute Neutrophil Count 4.7 X10^3/uL (2.0-7.7); Basophil# 0.12 X10^3/uL; Basophil% 1.3 % (0-1); Eosinophil# 0.41 X10^3/uL; Eosinophils% 4.5 % (0-5); Hematocrit 43.6 % (40-54); Hemoglobin 14.8 g/dL (13.0-16.5); Lymphocyte # 2.85 X10^3/ul (0.83-4.51); Lymphocyte % 31.3 % (19-41); Mean Corp Hgb Conc 33.9 g/dL (32-36); Mean Corpuscular Hgb 31.8 pg (27.0-32.0); Mean Corpuscular Volume 93.8 fL (80-94); Mean Platelet Vol. 9.5 fl (6.2-12.0); Monocyte# 0.98 X10^3/uL; Monocyte% 10.8 % (0-10); NRBC Flagged by Analyzer 0 % (0-5); Neutrophil # 4.71 X10^3/uL (2.7-7.7); Neutrophil % 51.7 % (47-70); Platelet Count 210 K/mm3 (150-450); RBC Distribution Width CV 14.1 % (11.6-14.6); RBC Distribution Width SD 48.4 fl (35.1-43.9); Red Blood Count 4.65 M/mm3 (4.6-6.2); White Blood Count 9.1 K/mm3 (4.4-11.0)
--- NOTE | 2024-08-17 08:15 | RAD_ITS ---
PROCEDURE: CHEST PA AND LATERAL REASON FOR EXAM: Chest pain and shortness of breath. TECHNIQUE: Frontal and lateral views of the chest. COMPARISON: Chest x-ray of 06/16/2024. FINDINGS: Stable degenerative changes of the spine, along with DISH. Prominent degenerative changes are seen at the visualized left acromioclavicular joint. Prominent right apical bulla formation again seen. Chronic lung changes are again seen, with interval increase in interstitial markings noted, concerning for superimposed interstitial pulmonary edema. No focal infiltrate is clearly appreciated. No pleural effusion or pneumothorax is noted. The cardiomediastinal silhouette is stable, without evidence of cardiomegaly. RAD/Chest PA and Lateral IMPRESSION: NEGATIVE CHEST Reading Location: [id number]
[2024-08-17 08:34] LABS: Anion Gap 7 (5-15); BUN 18 mg/dL (7-18); BUN/Creat Ratio 17.3 RATIO (10-20); Calcium,Total 9.6 mg/dL (8.5-10.1); Chloride 107 mmol/L (98-107); Creatinine, Serum 1.04 mg/dL (0.70-1.30); EST Glomerular Filtration Rate 76 mL/min (>60); Est Glom Filt Rate - Afr Amer 92 mL/min (>60); Estimated Creatinine Clearance 84.89 ml/min; Glucose 126 mg/dL (74-106); Potassium 3.7 mmol/L (3.5-5.1); Sodium Level 142 mmol/L (136-145); Troponin-I HS (w/2H Reflex) 21 pg/mL (3.0-78.0)
[2024-08-17 08:56] LABS: BNP,B-Type NATRIURETIC PEPTIDE 37.7 pg/mL (0-100)
[2024-08-17 10:08] LABS: Reflex Troponin-HS? (from REC) Y
[2024-08-17] MEDS: MethylPREDNISolone 125 MG/2 ML Vial IV (10:12)
[2024-08-17] MEDS: Ipratropium/Albuterol Sulfate 3 ML AMPUL.NEB INHALATION (10:19)
[2024-08-17 10:36] LABS: Troponin-I HS 18 pg/mL (3.0-78.0)
== END 2024-08-17 11:47 | disposition home or self-care (01) ==
PROVIDERS: Emergency Provider Emergency Medicine; PCP Internal Medicine; Visit Provider Emergency Medicine
DX: J44.1 Chronic obstructive pulmonary disease with (acute) exacerbation (principal); I10 Essential (primary) hypertension; F17.200 Nicotine dependence, unspecified, uncomplicated; R07.9 Chest pain, unspecified; R05.9 Cough, unspecified; E03.9 Hypothyroidism, unspecified; Z79.01 Long term (current) use of anticoagulants; H61.23 Impacted cerumen, bilateral
CPT/HCPCS: 71046; 80048; 83880; 84484; 85025; 87631; 93005; 94640; 96374; 99284; A4216

== ENCOUNTER 2024-10-30 10:00 | Outpatient (RCR) | payer MEDICARE, MEDICAID, SELFPAY ==
--- NOTE | 2024-07-20 15:58 | HP.SP.EVAL ---
Visit History Visit Info Date of Eval: 07/20/24 Visit: 1 Esl Professor: RALPH History Attending Doctor: Referring Doctor: Kamini Swann Reason for Referral: DYSPHAGIA, DEBILITY, IMPAIRED MOBILITY. RX HERE Medical Diagnosis: Subdural Hematoma Date of Onset of Diagnosis: 06/16/24 Results: Patient may have had a modified barium swallow in the last year. Patient Other Relevant Medical History/Diagnoses/Surgery: Patient presented to [facility] on 06/16/24 with a severe headache. He was transferred to [facility] with discharge on 06/20/24. He returned to ER on 06/23/24 and was again transferred to [facility] for emergent craniotomy and evacuation along middle meningeal artery embolization with discharged home on on 06/30. Per report sent with referral. Patient reports that he has had worse cognitive deficits including recall deficits. Swallowing problems have been ongoing for approximately 1 year with coughing/choking or food sticking 2-3 times per day. Smoking Status: Light Smoker (<10/day) Diagnosis Diagnosis: Oropharyngeal dysphagia, possible cognitive deficits. Pain Is pain an issue with your current prescribed condition?: Yes Personal Preferred language: Turkish Patient Allergies Allergies Allergies: Allergies No Known Allergies Allergy (Verified 06/16/24 19:16) Subjective Dysphagia Symptoms Reported Symptoms/Problems with: Difficulty Swallowing Solids, Difficulty Swallowing Liquids and Food gets stuck Current Diet Solids Current Diet: Regular Current Diet Liquids Current Liquids: Thin Objective Dysphagia Administered by Administered by: Self Thin Liquids Administred via: Cup Oral Transit: WNL Bolus clearance: fully cleared Gagging: No Cough: throat clear Pharyngeal phase: suspect pharyngeal deficits Patient Report: HE reported he had phlegm and caused him to clear his throat. Comments: Noted Patient did not clear his throat until he drank thin liquid. Regular Oral Preparation: WNL Patient Report: Patient reported feeing a little bit stuck in his throat still. Comments: A liquid wash was effective to clear sensation of food stuck. Recommendations Swallowing Treatment: Yes Diet Texture Recommendations Solids: Regular (Level 7) Liquids: Thin (Level 0) Results Swallowing Within Normal Limits: No Swallowing Diagnosis: Oropharyngeal Phase Dysphagia (R13.12) Subjective Oral Motor Subjective Dentures ill fitting: No Objective Oral Motor Oral Status Dentition: Upper Dentures Additional: No bottom teeth. Labial Impairment: WNL Observation at Rest: WNL Closure: WNL Pucker: WNL Retraction: WNL Alternating Pucker/Retraction: WNL Involuntary Movement noted: No Lingual Impairment: WNL Protrusion: WNL Retraction: WNL Lateralization: WNL Involuntary Movement: No Jaw Impairment: WNL Respiratory Status Respiratory Status: Room Air Swallowing Performance Scale Swallowing Performance Scale Swallowing Performance Scale Result: 3 Mild Reference: Neuro-QoL instrument Radiation Oncology Patient Plan Plan Plan: Patient is in agreement with FEES to determine current swallow abilities based on instrumental testing. Patient reported recall deficits that have been significantly worse since subdural hematoma. Assessment is needed for cognitive deficits. Recommend dysphagia treatment after FEES. Recommendations Treatment Warranted: Yes Treatment Warranted: Dysphagia and Cognition Progress Prognosis: Good Frequency Frequency: 2x /Week Duration: 2 Months Visits in this POC: 16 Patient/Family Goal Patient/Family Goal: Patient stated he wants to get better as his goal. Goals that are Established Determination:: Goals will be added/modified as deemed necessary and appropriate. Therapy will be discontinued when results of re-evaluation indicate therapy is no longer needed or lack of progress has been documented. Goal #1-5 Goal #1: Patient will tolerate the least restrictive means of nutrition to facilitate adequate hydration/nutrition with optimum safety and efficiency of swallowing function during P.O. intake without overt signs and symptoms of aspiration. Goal #2: Patient will demonstrate and utilize recommended oropharyngeal strengthening exercises to facilitate improved oropharyngeal strength and coordination with minimal cueing and prompting provide by the clinician, across 3 to 3 sessions. Goal #3: Cognitive/ Language Assessment. Goal #4: FEES recommended. Education Patient has Indicated that the Following Identified Educational Needs: None The Patient has indicated that they have no educational or learning abilities that may effect their care.: Yes Patient Instruction Patient Education: Diagnosis, Treatment Plan and Goals Person Taught: Patient Response to teaching: Verbalize Understanding and Reinforcement Needed
--- NOTE | 2024-07-20 16:53 | HP.PTEVAL ---
Patient's Visit Information Visit Information Visit Information: JENNIE MCCARTHY is a 63 year old M referred to Physical Therapy by Dr. Levon Corral MD with a diagnosis of SUBDURAL HEMATOMA ,DYSPHAGIA,IMPAIRED MOBILITY,BEBLITY. Date of Evaluation: 07/20/24 Physical Therapist: Thomas Acevedo, PT, Cert MDT, OCS Visit Plan Frequency: 2x /Week Duration: 4 Weeks Plan: s/p craniotomy 06/23 10# lifting restriction PT INTERVENTIONS PROGRESSIVE HIGH LEVEL BALANCE,FUNCTIONAL STRENGTHENING ,BLE STRENGTHENING AND ENDURANCE PROGRAM Subjective Subjective: This 63 y/o male presents to physical therapy with subdural hematoma. Patient admitted [facility] on 06/16/24 with a severe headache from lifting 150 # bench press then felt pop side of left head. Patient ER [facility] and had CT SCAN then transferred to [facility] . Patient was monitor 7 days. He was discharge on 06/20/24. He returned to ER on 06/23/24 and was again transferred to [facility] for emergent craniotomy and evacuation along middle meningeal artery embolization then discharged home on on 06/30. Patient was d/c to home. Denies paresthesia/tingling occasional in arm and legs. Patient has 10 # restriction. Denies dizziness /nausea but c/o tinnitus. Patient lives 1 story home in apartment with 2 steps . Walk in shower. Patient in bath and dressing .Spouse does cooking and cleaning. Patient condition affects QOL and function. Goal to get better and stronger. VOCATION: retired SOCAIL: Objective Objective: POSTURE: mild forward posture NEURO: denies paraesthesia/tingling, reflexes L3-4,L4-5 ,L5-S1 2/3 GAIT: ambulates with cane 2 point ( ambulate with reciprocal pattern no LOB) BALANCE: dynamic good - STAIRS: alternating with rails MMT: quads/hams 4/5 ,hip flexion 4-/5 ,ankle 4/5 ,hip abduction FLEXABILITY: hamstrings min tight Balance/Special Test Scores Functional Gait Assessment Score: 26 % Disability: 13.3400 CATSIB Score (Max score 120 seconds): 111 Lower Extremity Functional Score: 39 30 Second Chair Rise Test Seconds: 9 Goals Goal 1:: Patient to be I with HEP for strengthening and balance Goal Time Frame: 4-6 Weeks Goal 2:: Patient to improve LFES score by 5-10 points to improve QOL Goal Time Frame: 4-6 Weeks Goal 3:: Patient to demonstrate 70% improvement with increase function and gait Goal Time Frame: 4-6 Weeks Goal 4:: Patient to improve LFES score by 5-10 points to improve QOL and balance Goal Time Frame: 4-6 Weeks Goal 5:: Patient to improve sit-stand 30-sec by 5reps to improve functional strength . Goal Time Frame: 4-6 Weeks Rehabilitation Potential Physical Therapy Diagnosis: Patient underwent s/p craniotomy due to subdural hematoma 06/23 with impairment with decrease endurance ,high level balance impairs ADL and housework tasks thus benefit from skilled PT Rehabilitation Potential: Good Anticipated Interventions Patient/Client Instruction: Educate patient on: Condition and Plan of Care For the Purpose of:: To improve muscle performance and motor function, To improve ability to perform ADL's, To increase tolerance to activity/condition/position, To improve performance and independence with ADL's, To improve ability of physical actions for home/community/work/leisure, To improve gait and locomotor functions, To improve endurance, To improve balance, To improve safety with gait, To assume or resume ADL's and To improve tolerance to ADL's Therapeutic Exercise to Include: Strength training, Power training, Endurance training, Balance training, Coordination, Postural training, Flexibilty training and Gait and locomotor training Comment: BLE For the Purpose of:: To improve muscle performance and motor function, To improve ability to perform ADL's, To increase tolerance to activity/condition/position, To improve ability of physical actions for home/community/work/leisure, To improve gait and locomotor functions, To increase flexibility/ROM, To improve endurance and To improve balance Text: Thank you for the opportunity to evaluate your patient. For Medicare and Medicare HMO plans, please review the plan of care and approve it. It will need to be FAXED BACK to us at [phone] for Medicare purposes. For Medicare only, by signing this I certify the plan of care. Please let me know if there are questions or concerns regarding this plan of care. Physician Signature: Date:
--- NOTE | 2024-07-21 06:40 | HP.OTEVAL ---
Patient's Visit Information Visit Information Visit Information: JENNIE MCCARTHY is a 63 year old M, referred to Occupational Therapy by Dr. Levon Corral MD, with a diagnosis of SDH. Date of Evaluation: 07/20/24 Occupational Therapist: Michell Miranda, CELESTINE/Glen, CHT Subjective Subjective: This 63 year old male was seen for OT eval with dx of SDH ( subdural hematoma) pt states he felt pain on his left side of his head after lifting wt (150#) with his nephew. Pt states pain was so bad he decided to go to ER. pt states he was at [facility] for about a week- pt states two or three days later went back to ER at [facility] pt went back to [place] having craniotomy - states he was at the hospital for 1 week and returned home. pt released from hospital 2023. pt states he feels weak but does report he is on current restrictions of no lift push pull more than 10 # ADLs Comments: pt lives with in home first floor set-up two entry steps pt has two cats and one dog ( has to mtg litter boxes) pt states prior to his hospital stay pt was IND with ADLS pt states IND with drive pt has tub shower combo use of shower chair. pt states he is doing better getting in and out of his bed pt states PLOF he was ambulation without ad. device pt now using straight cane per 's idea- pt likes to Bowling and hopes to return to this next year. 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 pt likes to work on felt pictures for hobby pt states does work outside the home- pt states his son is close Pain head: Current Pain Intensity: 3 Pain Intensity Range: 3 and 6 ROM ROM Comments: pt demo full BUE ROM pt demo with slight right UE drift after 30 sec. Strength Sole Edge Inker Machine: right 90# left 100# Lateral Pinch: right 24# left 22# Tripod Pinch: right 18# left 24# Strength Comments: pt demo with a decrease in right bioinformatics specialist strength Sensation Sensation Comments: denies Nine Hole Peg Right: 24.5sec. Left: 23 left Goals Goal:: pt will demo a increase in bilateral bioinformatics specialist strength by 10 # or greater to increase pts IND with ADls and IADLs. pt will demo the ability to lift 20# as precursor to lifting groceries and case of water IND by d.c. ( do not initiate until cleared with restrictions) Goal:: pt will report a decrease in pain to 2/10 or less with daily tasks by dc Goal:: pt will demo understanding of energy conservation bee. to increase safety and return pt to ADLS/IADLs & leasiure task without fatigue by d/c Rehabilitation General Assessment: pt demo with generalized weakness limiting his functional daily tasks. Pt would benefit from skilled OT services 1-2x week for 4 weeks to improve pts functional strength/endurance to perform ADLs and IADLs at [facility]. Today therapist ed. pt on POC and working within his lifting restrictions. pt demo understanding and agree to POC. Rehabilitation Potential: Good Anticipated Interventions Anticipated Interventions: Strengthening, Joint Protection/Energy Conservation, Ergonomic Education, Education re assistive Equipment, Education re Diagnosis and Home Program Visit Plan Frequency: 1-2x /Week Duration: 4 Weeks TEXT: Thank you for the opportunity to evaluate your patient. For Medicare and Medicare HMO plans, please review the plan of care and approve it. It will need to be FAXED BACK to us at [phone] for Medicare purposes. Please let me know if there are questions or concerns regarding this plan of care. Physician Signature: Date:
--- NOTE | 2024-08-18 15:02 | SP.FEES_ITS ---
FEES Patient Information Date of Evaluation: 08/10/24 Time of Evaluation: 10:10 Diagnosis: Mild phyarngeal dysphagia Staff Providing this Care/Treatment:: RALPH Direct Billable Minutes: 120 History: Past Medical History:: Patient presented to [facility] on 06/16/24 with a severe headache. He was transferred to [facility] with discharge on 06/20/24. He returned to ER on 06/23/24 and was again transferred to [facility] for emergent craniotomy and evacuation along middle meningeal artery embolization with discharged home on on 06/30. Per report sent with referral. Patient reports that he has had worse cognitive deficits including recall deficits. Swallowing problems have been ongoing for approximately 1 year with coughing/choking or food sticking 2-3 times per day. Patient reported that he has had a scope before but unable to tell if it was FEES or ENT. He also reported that he may have had a MBS in the past but no further information provided. TX/DX History:: No Subjective: Subjective:: Patient reported that he has feeling of food sticking- approximately 10 times per week. He demonstrated this feeling at the level of his Alirio's apple. Current Diet: Drinks/Liquids:: Thin Foods:: Regular Medication Administration:: orally Vocal Quality: Observations:: Raspy and Wet Comments:: Mildly raspy. Patient has intermittent wet vocal quality (even before oral intake) that was resolved with throat clearing. Cognition: Observations:: Did not impact exam Position During FEES: Position During FEES:: Upright Location: In Bed Fiberoptic Endoscope: Size: 3.4 mm Nare Used:: Right Anatomy: Nasopharynx Tissue Description: Moist Anatomical Findings: Anatomical Findings:: Elongated uvula appearing to touch the base of tongue. Patient had a ziegler salguero size excrescence on the right side of vallecula ( unable to determine if it is superior to vallecula or the level of it due to angle of camera). It matched the color of the tissue around it. Secretions: Description:: Thick and White Comment:: Patient reported he has a high level of sinus drainage. Location:: Nasopharynx, Oropharynx, Hypopharynx and Diffuse Comment:: Observed mucus on posterior pharyngeal wall as well as in pyriform sinuses along with diffuse mucus in pharyngeal area. Phonation: Arytenoid Adduction: WNL Vocal Fold Adduction: WNL Penetration-Aspiration Scale Penetration-Aspiration Scale Thin Liquids by Single Cup Food/Drink Provided:: Water, Mountain Dew Swallow Onset Location:: Tongue Base and Vallecula PAS Score: PAS Score *1 Visual Analysis of Swallowing Efficiency and Safety (VASES) after the swallow: Oropharynx Comments:: No residue noted after the swallows with water. With a large drink of Mountain Dew he had mild residue in the vallecula. Additional Comments:: With a large drink of Mountain Dew he exhibited an immediate natural second swallow. Thin Liquids by Single Straw Food/Drink Provided:: Water Swallow Onset Location:: Tongue Base PAS Score: PAS Score *1 Additional Comments:: Noted that greenout' phase rather than full whiteout phase which is due to reduced pharyngeal contraction. Thin Liquids by Sequential Straw Food/Drink Provided:: Water Swallow Onset Location:: Tongue Base PAS Score: PAS Score *1 Comments:: No residue noted after the swallow was complete. Noted greenout which indicates reduced pharyngeal contraction. Soft & Bite Sized Textures PAS Score: PAS Score *1 Easy to Chew Textures Food/Drink Provided:: Banana Swallow Onset Location:: Vallecula PAS Score: PAS Score *1 Comments:: Noted piecemeal swallows but no residue after the swallow. He independently completed a second swallow when a small amount of residue mixed with saliva from oral cavity moved into the vallecula. Regular Textures Food/Drink Provided:: [place] and cheese sandwich, chips, cereal in milk. Swallow Onset Location:: Vallecula and Pyriform Sinuses PAS Score: PAS Score *1 Visual Analysis of Swallowing Efficiency and Safety (VASES) after the swallow: Oropharynx Comments:: Very minimal residue noted the turkey and cheese sandwich or chips. When he exhibited a natural second swallow, there was no residue left. With milk and cereal he had mild residue in vallecula with larger bites that cleared with an independent second swallow. Very minimal residue with smaller bite. Strategies Trialed:: Smaller bite size had less premature spillage. With milk and cereal he exhibited 2-3 independent swallows on large bites. Additional Comments:: Large bites had piecemeal swallowing. Chip bites were large and noted that he had premature spillage to the pyriform sinus on the right side. With large bites, he demonstrated an independent second swallow. Cereal in milk had two trials with large bites (entire spoon was heaping). He exhibited significant premature spillage to the pyriform sinuses for the milk while he was masticating the cereal. This places him at greater risk for penetration/aspiration. He reported after a cereal bite that it hurt going down. With next bite he was cued to chew thoroughly and he did not report pain upon swallowing. Diagnosis/Impressions Diagnosis: Mild pharyngeal dysphagia Impressions: Patient overall exhibited no penetration or aspiration during the study. He demonstrated reduced pharyngeal contraction with liquids and demonstrated residue. Smaller bites/sips had less residue and he was able to clear large bites with a natural second swallow. Mixed consistency had greater premature spillage. Swallow trigger typically was vallecula and pyriform sinuses. Continued diet of regular consistency with thin liquid with use of strategies. Swallowing Impairment: Premature Posterior Loss and Decreased Pharyngeal Contraction Recommendations Diet: Regular Textures and Thin Liquids Medication Administration:: Whole with liquids Compensatory Strategies: Small Bites, Small Sips, Slow Rate, Sitting upright and Remain sitting upright for 30 minutes after PO intake Recommend Repeat Instrumental Swallow Assessment: No Need for Skilled Speech Therapy Services: Yes Recommended Referrals: ENT Consult Education Completed: 2. Pt understands evaluation & agrees with goals and treatment plan. and 7. Pt requires further education on strategies & risks. Comments: ENT consult recommended for white patches on base of tongue along with excrescence on right side of vallecula. Frequency Frequency: 2x /Week Duration: 6 Weeks Visits in this POC: 16 Goals that are Established Patient/Family Goal: Patient would like to eat without restriction. Determination:: Goals will be added/modified as deemed necessary and appropriate. Therapy will be discontinued when results of re-evaluation indicate therapy is no longer needed or lack of progress has been documented. Goal #1: Patient will tolerate the least restrictive means of nutrition to facilitate adequate hydration/nutrition with optimum safety and efficiency of swallowing function during P.O. intake without overt signs and symptoms of aspiration. Goal #2: Patient will demonstrate and utilize recommended oropharyngeal strengthening exercises to facilitate improved oropharyngeal strength and coordination with minimal cueing and prompting provide by the clinician, across 3 to 3 sessions. Goal #3: Patient will complete basic to mod complex immediate, short-term, and working memory tasks with 90% accuracy independently across 3 measured opportunities. Goal #4: Patient will demonstrate ability to use memory strategies during tasks on 3/5 trials on 2/3 consecutive sessions. Goal #5: FEES recommended.
--- NOTE | 2024-08-31 13:51 | HP.PTREVAL ---
Re-Evaluation Intro: Dr. Levon Corral MD, It has been my pleasure to treat JENNIE MCCARTHY over the last 10 visits for SUBDURAL HEMATOMA ,DYSPHAGIA,IMPAIRED MOBILITY,BEBLITY. Please see the progress note below for an update on the physical therapy plan of care! Subjective Subjective: Making progress with strength most concern with being unsteady Walking a block with dog Objective Objective/Function: *Patient will continue to benefit from skilled PT to improve endurance and strength with goals appropriate and adjusted* POSTURE: mild forward posture NEURO: denies paraesthesia/tingling, reflexes L3-4,L4-5 ,L5-S1 2/3 GAIT: ambulates reciprocal pattern BALANCE: good STAIRS: alternating with rails MMT: quads/hams 4/5 ,hip flexion 44/5 ,ankle 4/5 ,hip abduction FLEXABILITY: hamstrings min tight Plan Plan Plan: Requesting 8 more visits s/p craniotomy 06/23 10# lifting restriction PT INTERVENTIONS PROGRESSIVE HIGH LEVEL BALANCE,FUNCTIONAL STRENGTHENING ,BLE STRENGTHENING AND ENDURANCE PROGRAM Balance/Gait/Functional tests Balance/Special Test Scores Functional Gait Assessment Score: 28 % Disability: 6.6700 CATSIB Score (Max score 120 seconds): 120 Lower Extremity Functional Score: 44 30 Second Chair Rise Test Seconds: 10 Goals Goals Goal 1:: Patient to be I with HEP for strengthening and balance Goal Time Frame: 4-6 Weeks Goal Progress: Progressing Goal 2:: Patient to improve LFES score by 5-10 points to improve QOL( new goal) Goal Time Frame: 4-6 Weeks Goal 3:: Patient to demonstrate 70% improvement with increase function and gait Goal Time Frame: 4-6 Weeks Goal Progress: Progressing Goal 4:: Patient to improve functional gait assessment score by 5-10 points to improve QOL and balance Goal Time Frame: 4-6 Weeks Goal Progress: Goal Met Goal 5:: Patient to improve sit-stand 30-sec by 5reps to improve functional strength . Goal Time Frame: 4-6 Weeks Goal Progress: Progressing Anticipated Interventions Anticipated Interventions Patient/Client Instruction: Educate patient on: Condition and Plan of Care For the Purpose of:: To improve muscle performance and motor function, To improve ability to perform ADL's, To increase tolerance to activity/condition/position, To improve performance and independence with ADL's, To improve ability of physical actions for home/community/work/leisure, To improve gait and locomotor functions, To improve endurance, To improve balance, To improve safety with gait, To assume or resume ADL's and To improve tolerance to ADL's Therapeutic Exercise to Include: Strength training, Power training, Endurance training, Balance training, Coordination, Postural training, Flexibilty training and Gait and locomotor training Comment: BLE For the Purpose of:: To improve muscle performance and motor function, To improve ability to perform ADL's, To increase tolerance to activity/condition/position, To improve ability of physical actions for home/community/work/leisure, To improve gait and locomotor functions, To increase flexibility/ROM, To improve endurance and To improve balance Re-Evaluation Ending Re-evaluation ending: Please do not hesitate to contact me at [phone] by phone or if you have questions or concerns regarding this new plan of care! Sincerely, Thomas Acevedo, PT, Cert MDT, OCS
--- NOTE | 2024-08-31 14:45 | OTREVAL_ITS ---
Re-Evaluation Intro: Dr. Levon Corral MD, It has been my pleasure to treat JENNIE MCCARTHY over the last 10 visits for SDH. Please see the progress note below for an update on the occupational therapy plan of care! Subjective Subjective: pt arrives- states he is doing good- feels he is able to do his shower standing now well and not using his shower chair. 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 pt demo with limitations with lifting and balance noted dynamic standing balance is fair ( this limits pt with BADLs cleaning/ laundry etc) pt continues to demo a decreased UB physical ability to perform IADLs at safe PLOF. pt would benefit from skilled OT services 2x week for 4 more weeks to challenged lifting with dynamic balance. new lifting and balance goals were added and reviewed with pts. Plan Plan Frequency: 1-2x /Week Duration: 4 Weeks Visits in this POC: 8 Plan: please ed. pt on gym eq. to transition him to health and wellness program dynamic balance with lifting from knee- waist and shoulder levels to simulate IADLs. 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 (goal met) pt will demo the ability to lift 20# as precursor to lifting groceries and case of water IND by d.c. ( do not initiate until cleared with restrictions) pt is still not cleared for lifting greater than 10# Goal:: pt will report a decrease in pain to 2/10 or less with daily tasks by dc ( progressing) Goal:: pt will demo understanding of energy conservation bee. to increase safety and return pt to ADLS/IADLs & leasiure task without fatigue by d/c Goal:: pt will demo good Dynamic standing balance with simulated laundry/cooking/dishes etc with IADLs by d.c Anticipated Interventions Anticipated Interventions Anticipated Interventions: Strengthening, Joint Protection/Energy Conservation, Ergonomic Education, Education re assistive Equipment, Education re Diagnosis and Home Program Re-Evaluation Ending Re-evaluation ending: Please do not hesitate to contact me at [phone] by phone or if you have questions or concerns regarding this new plan of care! Sincerely, Michell Miranda OTR/L, CHT
--- NOTE | 2024-09-29 15:16 | HP.SP.REEV ---
Visit History Visit Info Date of Eval: 08/10/24 Visit: 1 Patient's Approved Number of Visits: 16 Insurance Date Limit: 10/06/24 Telecommunication Lines Repairer: RALPH History Attending Doctor: Referring Doctor: Reason for Referral: DYSPHAGIA, DEBILITY, IMPAIRED MOBILITY. RX HERE Medical Diagnosis: Subdural Hematoma Date of Onset of Diagnosis: 06/16/24 Results: Patient may have had a modified barium swallow in the last year. Patient Other Relevant Medical History/Diagnoses/Surgery: Patient presented to [facility] on 06/16/24 with a severe headache. He was transferred to [facility] with discharge on 06/20/24. He returned to ER on 06/23/24 and was again transferred to [facility] for emergent craniotomy and evacuation along middle meningeal artery embolization with discharged home on on 06/30. Per report sent with referral. Patient reports that he has had worse cognitive deficits including recall deficits. Swallowing problems have been ongoing for approximately 1 year with coughing/choking or food sticking 2-3 times per day. Smoking Status: Light Smoker (<10/day) Diagnosis Diagnosis: Mild cognitive deficits. Pain Is pain an issue with your current prescribed condition?: Yes Personal Preferred language: Lao Patient Allergies Allergies Allergies: Allergies No Known Allergies Allergy (Verified 08/17/24 07:36) Previous/Current Goals Goals 1-5 Previous Goal #1: Patient will tolerate the least restrictive means of nutrition to facilitate adequate hydration/nutrition with optimum safety and efficiency of swallowing function during P.O. intake without overt signs and symptoms of aspiration. Goal 1 Status: Goal met. William is currently on a regular diet with thin liquids. On 09/21/24 he reported that if he follows his strategies then he has no problems. Previous Goal #2: Patient will demonstrate and utilize recommended oropharyngeal strengthening exercises to facilitate improved oropharyngeal strength and coordination with minimal cueing and prompting provide by the clinician, across 3 to 3 sessions. Goal 2 Status: Goal discontinued. Patient was provided with dysphagia exercises. He was placed on a home program with exercises recommended 3x daily. Due to memory deficits, he stated he often forgot them. He was provided with a written list of exercises and ways were discussed on how to use his recall strategies to remember at home. Previous Goal #3: Patient will complete basic to mod complex immediate, short-term, and working memory tasks with 90% accuracy independently across 3 measured opportunities. Goal 3 Status: Goal continues with modifications. 08/31/24 During recall of specific information for 2-3 sentences- First trial immediate recall with was 33% and increased to 100% after repeated reading of information with max cues. 09/07/24Patient recalled 3/4 items from a paragraph that was read twice then covered. Second trial was 1/4 on first try after reading it twice. Reviewed it and encouraged to underline elaine material. Accuracy second time was 50% without material in view. 09/21/24 Recall of information provided in written form that he was able to read twice (cued to use reread) - /, /, /. Previous Goal #4: Patient will demonstrate ability to use memory strategies during tasks on 3/5 trials on 2/3 consecutive sessions. Goal 4 Status: Goal continues. Patient was provided with a written list of 5 recall strategies. Each one was discussed and provided details on use. He can verbalize that he should write things down. During therapy he continues to need maximal cues to use all strategies. Previous Goal #5: FEES recommended. Goal 5 Status: Goal met. Patient completed a FEES on 08/10/24. Please refer to FEES report for complete details. Subjective Dysphagia Symptoms Reported Symptoms/Problems with: Difficulty Swallowing Solids, Difficulty Swallowing Liquids and Food gets stuck Current Diet Solids Current Diet: Regular Current Diet Liquids Current Liquids: Thin Objective Dysphagia Administered by Administered by: Self Thin Liquids Administred via: Cup Oral Transit: WNL Bolus clearance: fully cleared Gagging: No Cough: throat clear Pharyngeal phase: suspect pharyngeal deficits Patient Report: HE reported he had phlegm and caused him to clear his throat. Comments: Noted Patient did not clear his throat until he drank thin liquid. Regular Oral Preparation: WNL Patient Report: Patient reported feeing a little bit stuck in his throat still. Comments: A liquid wash was effective to clear sensation of food stuck. Recommendations Swallowing Treatment: Yes Diet Texture Recommendations Solids: Regular (Level 7) Liquids: Thin (Level 0) Results Swallowing Within Normal Limits: No Swallowing Diagnosis: Oropharyngeal Phase Dysphagia (R13.12) Subjective Oral Motor Subjective Dentures ill fitting: No Objective Oral Motor Oral Status Dentition: Upper Dentures Additional: No bottom teeth. Labial Impairment: WNL Observation at Rest: WNL Closure: WNL Pucker: WNL Retraction: WNL Alternating Pucker/Retraction: WNL Involuntary Movement noted: No Lingual Impairment: WNL Protrusion: WNL Retraction: WNL Lateralization: WNL Involuntary Movement: No Jaw Impairment: WNL Respiratory Status Respiratory Status: Room Air CLQT CLQT CLQT Administered: Yes CLQT: Cognitive Linguistic Quick Test (CLQT) is a criterion - referenced assessment designed for adults between the ages of 18 and 89 with known or suspected neurological dysfuntions. The CLQT is to assess strength and weaknesses in five cognitive domains. Severity ratings are within normal limits, mild, moderate, severe deficits. The subtests are as follows: Date: 09/29/24 Attention Attention: Mild Memory Memory: WNL Executive Functions Executive Functions: Moderate Language Language: WNL Visuospatial Skills Visuospatial Skills: Mild Composite Severity Rating Composite Severity Rating: Mild CLQT Comments Analysis: -: Patient met the criterion cut scores for his age for personal facts, symbol cancellation, confrontational naming, story retelling, generative naming, design memory, and design generation. He did not meet the cut scores for symbol trails (his score was 6 when cut score was 9), and mazes ( his score was 0 and cut score was 7). The patient has reported that he has had previous difficulty with details throughout his life. For the mazes subtest he completed the mazes correctly and in the time limit but did not follow the direction to stay in the alleys. He noticed twice when he made the mistake but did not correct it. (When asked about it he stated he doesn't like rules much). If he had gotten credit for both correct mazes then his scores were have been WNL for all five subtests. Prevous scores: -: 08/04/24 CLQT- Scores are as follows: Attention- Mild, Memory- Moderate, executive functions mild, language moderate, visuospatial skills mild. All cut criterion scores were WNL except Story retelling ( 2, needed 6), Generative naming (4 needed a 5), and mazes (0, needed 7). He had severe difficulty with recalling any events of the story and difficulty with answering yes/no questions after the story. He completed the mazes correctly but did not follow the direction to cross lines which he did on both mazes. if he had gotten credit for those then attention, executive functions, and visuospatial skills would have been within normal limits. Swallowing Performance Scale Swallowing Performance Scale Swallowing Performance Scale Result: 3 Mild Reference: Neuro-QoL instrument In past 7 days I had to read something several times to understand it: Very often (several times a day) My thinking was slow: Rarely (once) I had to work really hard to pay attention or i would make a mistake: Sometimes (2-3 times) I had trouble concentrating: Sometimes (2-3 times) How much DIFFICULTY do you currently reading & following complex instructions (e.g. directions for new medication: A little planning for & keeping appts that are not part of weekly routine: A lot managing your time to do most of your daily activities: Somewhat learning new tasks or instructions: A little Neuro-QOL Score Raw Score: 24 T - Score: 38.9 Radiation Oncology Patient Other Other Comments: -: Patient has missed sessions due to forgetting the appointment. One session he left after PT as he forgot he had speech therapy after PT. Other sessions have been missed due to weather, transportation and in the family. Patient reported that his depression has gotten better. Plan Plan Plan: Speech therapy is warranted to continue as patient is demonstrating deficits with delayed recall of tasks and use of recall strategies. Sessions are reduced from twice per week to once per week. Recommendations Treatment Warranted: Yes Treatment Warranted: Cognition Progress Prognosis: Good Frequency Frequency: 1x/Week Duration: 4 Weeks Visits in this POC: 4 Patient/Family Goal Patient/Family Goal: Patient would like to be able to remember the tasks he is supposed to be doing daily. Goals that are Established Determination:: Goals will be added/modified as deemed necessary and appropriate. Therapy will be discontinued when results of re-evaluation indicate therapy is no longer needed or lack of progress has been documented. Goal #1-5 Goal #1: Patient will complete basic to mod complex recall tasks with a 3-5 minute delay with 90% accuracy independently across 3 measured opportunities. Goal #2: Patient will demonstrate ability to use memory strategies during tasks on 4/5 trials on 2/3 consecutive sessions. Goal #3: NA Goal #4: NA Goal #5: NA Education Patient has Indicated that the Following Identified Educational Needs: None The Patient has indicated that they have no educational or learning abilities that may effect their care.: Yes Patient Instruction Patient Education: Diagnosis, Treatment Plan and Goals Person Taught: Patient Response to teaching: Verbalize Understanding and Reinforcement Needed
--- NOTE | 2024-10-05 13:44 | HP.PTDCSUM ---
Discharge Summary D/C summary: It has been my pleasure to treat JENNIE MCCARTHY referred by Dr. Levon Corral MD, with the diagnosis of SUBDURAL HEMATOMA ,DYSPHAGIA,IMPAIRED MOBILITY,BEBLITY for a total of 17 visit(s). Discharge Date: Please see the following information for a summary of their discharge status. Subjective Subjective: Doing well ready to be done with therapy and work on own Pain LBP: Pain Intensity (Out of 10): 1 Overall Improvement % Improvement: 90 Objective Objective/Function: POSTURE: mild forward posture NEURO: denies paraesthesia/tingling, reflexes L3-4,L4-5 ,L5-S1 2/3 GAIT: ambulates reciprocal pattern BALANCE: good STAIRS: alternating with rails MMT: quads/hams 4/5 ,hip flexion 4/5 ,ankle 4/5 ,hip abduction FLEXABILITY: hamstrings min tight Goals Goal 1:: Patient to be I with HEP for strengthening and balance Goal Progress: Goal Met Goal 2:: Patient to improve LFES score by 5-10 points to improve QOL( new goal) Goal Progress: Goal Met Goal 3:: Patient to demonstrate 70% improvement with increase function and gait Goal Progress: Goal Met Goal 4:: Patient to improve functional gait assessment score by 5-10 points to improve QOL and balance Goal Progress: Goal Met Goal 5:: Patient to improve sit-stand 30-sec by 5reps to improve functional strength . Goal Progress: Goal Met Plan Plan: D/C D/C Information d/c sentence: If there are questions or concerns regarding this patient's physical therapy, please feel free to call me at [phone]. Thank you for the referral of this patient. Sincerely, Thomas Acevedo, PT, Cert MDT, OCS Balance/Gait/Functional tests Balance/Special Test Scores Functional Gait Assessment Score: 30 % Disability: 0 CATSIB Score (Max score 120 seconds): 120 Lower Extremity Functional Score: 50 30 Second Chair Rise Test Seconds: 13 Improvement % Improvement: 90
--- NOTE | 2024-10-05 14:29 | HP.OTDCSUM_ITS ---
Discharge Summary D/C Summary: It has been my pleasure to treat JENNIE MCCARTHY under orders from Dr. Levon Corral MD, for the diagnosis of SDH for a total of 6 visit(s). Please see the following information for a summary of their discharge status. Overall Improvement % Improvement: 85 Objective Objective/Function: -pain in head is typically around 4 -pt stated that he is limited d/t wt restrictions- but can do everything else at home. -Balance has been good when doing dishes/laundry. When he first stands up after sitting for a while he is wobbly. 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 (goal met) pt will demo the ability to lift 20# as precursor to lifting groceries and case of water IND by d.c. ( do not initiate until cleared with restrictions) pt is still not cleared for lifting greater than 10# Goal:: pt will report a decrease in pain to 2/10 or less with daily tasks by dc ( Goal met) Goal:: pt will demo understanding of energy conservation bee. to increase safety and return pt to ADLS/IADLs & leisure task without fatigue by d/c (goal met) Goal:: pt will demo good Dynamic standing balance with simulated laundry/cooking/dishes etc with IADLs by d.c ( goal met) Plan Plan: Last scheduled appt- pt would like to transition to sliver sneakers- hand out of wts for gym equipment given. D/C Information Discharge Comments: pt has met OT goals at this time and is d/c. pt agrees with D/C. d/c sentence: If there are questions or concerns regarding this patient's occupational therapy, please fell free to call me at [phone]. Thank you for the referral of this patient. Sincerely, Michell Miranda, OTR/L, CHT
== END 2024-10-30 19:00 | disposition home or self-care (01) ==
LOC: SP 10:00
PROVIDERS: PCP Internal Medicine; Referring Provider Internal Medicine; Visit Provider Internal Medicine
DX: S06.5XAD Traumatic subdural hemorrhage with loss of consciousness status unknown, subsequent encounter (principal); R13.10 Dysphagia, unspecified; R53.81 Other malaise; Z74.09 Other reduced mobility; F09 Unspecified mental disorder due to known physiological condition; R47.01 Aphasia
CPT/HCPCS: 92507; 92526; 92610; 92612; 97110; 97129; 97130; 97162; 97166; 97530

== ENCOUNTER 2024-11-21 15:41 | Emergency (ER) | payer MEDICARE, MEDICAID, SELFPAY ==
[2024-11-21] VITALS (9 sets, daily range): BP systolic 147–184; BP diastolic 84–112; PULSE 43–55; RESP 10–22; TEMP 36.2–36.6; O2SAT 93–97; BMI 33.5
--- NOTE | 2024-11-21 16:01 | EKG12_ITS ---
Test Reason : CP Blood Pressure : */* mmHG Vent. Rate : 50 BPM Atrial Rate : 50 BPM P-R Int : 242 ms QRS Dur : 96 ms QT Int : 446 ms P-R-T Axes : 21 -26 74 degrees QTcB Int : 406 ms Sinus bradycardia with 1st degree A-V block Otherwise normal ECG Confirmed by NIKOS MARIE, AALIYAH ([id number]), senior technical editor MEEK VILLAREAL ([id number]) on 11/23/2024 9:20:14 AM Referred By: Jamal Tate Confirmed By: AALIYAH KNOTT MD
--- NOTE | 2024-11-21 16:05 | RAD_ITS ---
PROCEDURE: CHEST PA AND LATERAL 11/21/2024 REASON FOR EXAM: COUGH, DYSPNEA TECHNIQUE: Frontal and lateral views of the chest. COMPARISON: 08/17/2019 and 06/16/2020 FINDINGS: Hardware: None Heart: The heart size is normal. Mediastinum: The mediastinal contour is unremarkable. Lungs: Stable moderate sized right apical bullae. Stable bilateral interstitial markings in the mid-lower lung zones. No pneumothorax. No pleural effusion. Bones: Degenerative changes are identified within the thoracic spine. RAD/Chest PA and Lateral IMPRESSION: See above Reading Location: [id number]
--- NOTE | 2024-11-21 16:08 | ED.VIS.CHEST ---
HPI History of Present Illness Chief Complaint: Chest Pain Informant: patient and spouse/S.O. Narrative Narrative: Left-sided chest pain since 7 PM cough started since then that is productive. No fever chills or sweats. No abdominal pain. History of paroxysmal A-fib, currently not on anticoagulants. He reported history of intracranial hemorrhage therefore his anticoagulant was stopped. Denies history of PE or DVT. No recent travel or surgeries. No immobilization. Tobacco history. Denies diabetes. History of hyperlipidemia. CVD Risk Factors: Positive for Hypertension, Hypercholesterolemia and Smoking; Negative for Diabetes or Family History 1' </=55 PE Risk Factors: Negative for Recent Travel/Surgery, Recent Immobilization or Prior DVT or PE [facility] Medical History Hx of blood clots Atrial fibrillation Hemorrhagic stroke Marijuana smoker Atrial flutter Back pain Hypertension Hypothyroidism Home Medications ?Medication ?Instructions ?Recorded ?Last Taken ?Type amitriptyline 10 mg tablet 25 mg PO QHS 06/23/13 10/30/16 History Lovastatin [Mevacor] 40 mg PO QHS 11/18/14 10/30/16 History lisinopril 5 mg tablet 10 mg PO DAILY 11/18/14 10/31/16 History docusate sodium 50 mg capsule 50 mg PO DAILY 07/10/16 Unknown History (Stool Softener) levothyroxine 150 mcg tablet 150 mcg PO DAILY 11/01/16 Unknown History methocarbamol 500 mg tablet 500 mg PO Q8H #14 tabs 09/27/22 Unknown Rx duloxetine 30 mg capsule,delayed 30 mg PO DAILY 06/23/24 Unknown History release gabapentin 100 mg capsule 100 mg PO Q8 06/23/24 Unknown History levetiracetam 1,000 mg tablet 1,000 mg PO BID 06/23/24 Unknown History pantoprazole 40 mg tablet,delayed 40 mg PO DAILY 06/23/24 Unknown History release doxycycline monohydrate 100 mg 100 mg PO BID #14 CAPSULES 08/17/24 Unknown Rx capsule prednisone 10 mg tablet 10 mg PO DAILY #30 TABLETS 08/17/24 Unknown Rx atorvastatin 80 mg tablet 80 mg PO QHS cholesterol 11/21/24 Unknown History azithromycin 250 mg tablet 250 mg PO DAILY #4 TABLETS 11/21/24 Unknown Rx nifedipine 30 mg tablet,extended 30 mg PO DAILY 11/21/24 Unknown History release 24 hr oxycodone-acetaminophen 5 mg-325 1 tab PO Q6H PRN PRN Pain 3 days 11/21/24 Unknown Rx mg tablet #12 TABLETS prednisone 20 mg tablet 60 mg (3 x 20 mg) PO DAILY #12 11/21/24 Unknown Rx TABLETS Allergy/AdvReac Type Severity Reaction Status Date / Time No Known Allergies Allergy Verified 11/21/24 15:45 Surgical History Hx of inguinal herniorrhaphy Social History household members: spouse Smoking Status: Light Smoker (<10/day) substance use type: marijuana ROS ROS ED Constitutional Constitutional ED: Denies chills, fever(s) or sweats ENT ENT ED: Denies sore throat Cardiovascular Cardiovascular: Reports chest pain; Denies leg edema, palpitations or racing heartbeat Respiratory/Chest Respiratory/Chest: Reports cough and dyspnea; Denies dyspnea on exertion Gastrointestinal Gastrointestinal: Denies abdominal pain, diarrhea, nausea or vomiting Genitourinary Genitourinary ED: Denies dysuria, hematuria or urinary frequency Musculoskeletal Musculoskeletal: Denies back pain, extremity pain or neck pain Integumentary Denies rash or wounds Neurologic Neurologic: Denies headache(s), paresthesias or weakness EXAM Physical Exam Const Vital Signs: 11/21/24 15:43 11/21/24 15:54 11/21/24 16:42 Temperature 97.1 F L Temperature Source Temporal Pulse Rate 55 L 45 L Respiratory Rate 22 H 13 Respiratory Effort Normal Non-Labored Respiratory Pattern Normal Blood Pressure 158/112 H 147/84 H Blood Pressure Mean 127 105 Pulse Ox 97 93 Oxygen Delivery Method Room Air Room Air 11/21/24 17:00 11/21/24 18:00 11/21/24 19:00 Temperature Temperature Source Pulse Rate 48 L 43 L 50 L Respiratory Rate 16 10 L 16 Respiratory Effort Respiratory Pattern Blood Pressure 163/99 H 170/87 H 184/108 H Blood Pressure Mean 120 114 133 Pulse Ox 93 95 97 Oxygen Delivery Method Room Air Room Air Room Air 11/21/24 20:00 11/21/24 21:00 11/21/24 21:32 Temperature 97.9 F Temperature Source Pulse Rate 51 L 45 L 48 L Respiratory Rate 16 16 16 Respiratory Effort Respiratory Pattern Blood Pressure 163/86 H 152/87 H 182/97 H Blood Pressure Mean 111 108 125 Pulse Ox 95 94 94 Oxygen Delivery Method Room Air Room Air Positive well nourished and well developed General Appearance ED: well developed and NAD HEENT Reports moist mucous membranes normocephalic and atraumatic Eyes General Eye ED: Yes normal appearance of both eyes Neck full ROM Chest Wall Chest: Negative for tenderness Resp normal respiratory effort and normal air movement Effort and Inspection: symmetric chest movement; Negative for respiratory distress Cardio regular rhythm and no murmurs Rate: bradycardia Peripheral Pulses: pulses 2+ throughout GI normal to inspection, nondistended, normoactive bowel sounds and non-tender Palpation: Negative for guarding or rebound tenderness present Extremity normal to inspection General Extremety ED: Negative for edema or tenderness General Extremity: Negative for edema Neuro oriented x3 and no sensory deficits noted Sensorium / Orientation: awake and alert Skin no rashes or lesions noted and no wounds MDM MDM MDM Narrative Medical decision making narrative: Interventions / MDM: Differential diagnosis: COPD exacerbation, atypical chest pain Diagnosis considered but do not suspect: ACS however EKG cardiac enzymes negative. My EKG interpretation: Sinus rate of 50 first-degree AV block, no ST or T wave changes. EKG repeat at 1818: Sinus bradycardia rate of 43 first-degree heart block, no complete heart blocks noted. Imaging independently reviewed and interpreted by myself: 2 view chest x-ray: No acute process. Stable apical right bullae, stable interstitial markings read by radiology. External documents reviewed: History of aortic aneurysm CT angiogram September 2022 noted stable stent that was in place. C[place]il Dehe aorta 3.8 cm. Test considered but not ordered:N/A ED course: Left-sided chest pain in [place] with cough and dyspnea. States productive sputum. No fevers. Does have history of COPD and tobacco. EKG sinus bradycardia no acute findings. Will check cardiac labs will check viral swabs. Two-view chest x-ray ordered for further evaluation. 1730: Initial troponin negative. White count 8.9 hemoglobin 15.2. Creatinine 0.93. Chest x-ray negative for any acute process. Does have history of COPD productive sputum. He was ambulated with a pulse ox 94% throughout. Covered with Zithromax and prednisone with his COPD. Given Toradol for chest discomfort. Will await delta troponin prior to final disposition. 1808: Per nursing patient reporting Toradol not helping. Concerns of blood pressure going up to systolic 170s. Heart rate 43. Will order for morphine. Will repeat EKG. Delta troponin in the lab. 1844: Per nursing patient writhing in bed. Evaluated patient laying on his right side reporting increasing pain left chest. His delta troponin was negative. He is ordered for IV fentanyl he sent over to CT to rule out dissection. 1950: CT chest negative for dissection no other acute findings. 4-hour troponin also negative reevaluation left more comfortable. Mitts to bed provided for treatment for a COPD exacerbation along with short prescription for pain control. Outpatient follow-up with his doctor with return precautions. All questions were answered. Re-evaluation: stable Disposition discussed with patient/family/significant other: Patient and significant other Case discussed with consulting clinician: N/A This note was generated with [employer] dictation software. It may contain incorrect words, spelling, and punctuation that were not noted in checking the note before signing. Lab Data Attestation: I reviewed the patient's lab results. Labs: Laboratory Results - last 24 hr 11/21/24 11/21/24 11/21/24 16:00 18:04 19:58 WBC 8.9 RBC 4.69 Hgb 15.2 Hct 43.0 MCV 91.7 MCH 32.4 H MCHC 35.3 RDW Std Deviation 40.1 RDW Coeff of Celeste 12.1 Plt Count 204 MPV 9.8 Immature Gran % (Auto) 0.300 Neut % (Auto) 51.9 Lymph % (Auto) 32.1 [place] % (Auto) 9.7 Eos % (Auto) 4.9 Baso % (Auto) 1.1 H Absolute Neuts (auto) 4.6 Absolute Lymphs (auto) 2.87 Nucleated RBC % 0 Sodium 139 Potassium 3.7 Chloride 105 Carbon Dioxide 22.7 Anion Gap 11 BUN 9 Creatinine 0.93 Estim Creat Clear Calc 93.44 Est GFR (MDRD) Non-Af 92 BUN/Creatinine Ratio 9.7 L Glucose 121 H Calcium 9.3 Troponin T High Sens 10 Troponin T Hi Sens 2 Hr 9 Troponin T Hi Sens 4Hr 9 Radiography Diagnostic Testing: Clinical Impression(s) from Imaging Studies Chest X-Ray 11/21/24 16:05 IMPRESSION: See above Reading Location: [facility] Chest CTA 11/21/24 18:48 IMPRESSION: 1. No evidence of pulmonary embolism. 2. Large right apical bullae and upper lobe predominant moderate emphysema. 3. Scattered ground-glass opacities with bronchial wall thickening, suggestive of underlying mild infectious/inflammatory process.. Reading Location: [facility] Discharge Plan Triage Chief Complaint: Chest Pain ED Provider: Jamal Tate Dx/Rx/DC Orders Clinical Impression: COPD exacerbation, Chest pain, Tobacco dependence Instructions: ED COPD Flare, ED Chest Pain, Uncertain Cause Prescriptions: New azithromycin 250 mg tablet 250 mg PO DAILY Qty: 4 0RF prednisone 20 mg tablet 60 mg PO DAILY Qty: 12 0RF oxycodone-acetaminophen 5-325 mg tablet 1 tab PO Q6H PRN PRN (Reason: Pain) 3 Days Qty: 12 0RF No Action amitriptyline 10 MG tablet 25 mg PO QHS Patient Comments: mood lisinopril 5 MG tablet 10 mg PO DAILY Patient Comments: blood pressure Lovastatin [Mevacor] 40 MG tablet 40 mg PO QHS Patient Comments: cholesterol Stool Softener 50 MG capsule 50 mg PO DAILY Patient Comments: stool softener levothyroxine 150 MCG tablet 150 mcg PO DAILY Patient Comments: thyroid methocarbamol 500 mg tablet 500 mg PO Q8H Qty: 14 0RF pantoprazole 40 mg tablet,delayed release (DR/EC) 40 mg PO DAILY gabapentin 100 mg capsule 100 mg PO Q8 duloxetine 30 mg capsule,delayed release(DR/EC) 30 mg PO DAILY levetiracetam 1,000 mg tablet 1,000 mg PO BID prednisone 10 mg tablet 10 mg PO DAILY Qty: 30 0RF Rx Instructions: 4 po qd x 3 days, 3 po qd x 3 days, 2 po qd x 3 days, 1 po qd x 3 days doxycycline monohydrate 100 mg capsule 100 mg PO BID Qty: 14 0RF nifedipine 30 mg tablet extended release 24hr 30 mg PO DAILY atorvastatin 80 mg tablet 80 mg PO QHS Primary Care Provider: Levon Corral Referrals: Levon Corral MD [Primary Care Provider] - 3-5 Days Activity Restrictions/Additional Instructions: Cardiac workup negative troponin negative x 3. CTA chest negative for any dissection. No pneumonia found. Take antibiotic and steroids as prescribed for COPD. Use pain medicine as needed for significant pain. Follow-up with her doctor. Any worsening symptoms, return to the ED for reevaluation. Print Language: Indonesian Disposition Disposition: Home, Self Care Discharge Date/Time: 11/21/24 21:43
[2024-11-21 16:16] LABS: Absolute Lymphocyte Count 2.87 X10^3/uL (0.83-4.51); Absolute Neutrophil Count 4.6 X10^3/uL (2.0-7.7); Basophil% 1.1 % (0-1); Eosinophil# 0.44 X10^3/uL; Eosinophils% 4.9 % (0-5); Hemoglobin 15.2 g/dL (13.0-16.5); Lymphocyte # 2.87 X10^3/ul (0.83-4.51); Lymphocyte % 32.1 % (19-41); Mean Corp Hgb Conc 35.3 g/dL (32-36); Mean Corpuscular Hgb 32.4 pg (27.0-32.0); Mean Corpuscular Volume 91.7 fL (80-94); Mean Platelet Vol. 9.8 fl (6.2-12.0); Monocyte# 0.87 X10^3/uL; Monocyte% 9.7 % (0-10); NRBC Flagged by Analyzer 0 % (0-5); Neutrophil # 4.63 X10^3/uL (2.7-7.7); Neutrophil % 51.9 % (47-70); Platelet Count 204 K/mm3 (150-450); RBC Distribution Width CV 12.1 % (11.6-14.6); RBC Distribution Width SD 40.1 fl (35.1-43.9); Red Blood Count 4.69 M/mm3 (4.6-6.2); White Blood Count 8.9 K/mm3 (4.4-11.0)
[2024-11-21 16:47] LABS: Anion Gap 11 (5-15); BUN 9 mg/dL (4-19); BUN/Creat Ratio 9.7 RATIO (10-20); Calcium,Total 9.3 mg/dL (7.6-11.0); Carbon Dioxide 22.7 mmol/L (21.0-32.0); Chloride 105 mmol/L (98-108); Creatinine, Serum 0.93 mg/dL (0.70-1.20); EST Glomerular Filtration Rate 92 (>60); Estimated Creatinine Clearance 93.44 ml/min (50-250); Glucose 121 mg/dL (70-99); Potassium 3.7 mmol/L (3.3-5.1); Sodium Level 139 mmol/L (133-145); Troponin T High Sensitivity 10 ng/L (<=22)
[2024-11-21] MEDS: predniSONE 20 MG Tablet 60 MG PO (17:11)
[2024-11-21] MEDS: Azithromycin 250 MG Tablet 500 MG PO (17:11)
[2024-11-21] MEDS: Ketorolac 15 MG/ML Vial IV (17:13)
--- NOTE | 2024-11-21 18:09 | EKG12_ITS ---
Test Reason : CP REPEAT Blood Pressure : */* mmHG Vent. Rate : 43 BPM Atrial Rate : 43 BPM P-R Int : 264 ms QRS Dur : 100 ms QT Int : 482 ms P-R-T Axes : 15 -21 80 degrees QTcB Int : 407 ms Marked sinus bradycardia with 1st degree A-V block Abnormal ECG Confirmed by NIKOS MARIE, AALIYAH ([id number]), brands editor MEEK VILLAREAL ([id number]) on 11/23/2024 9:20:23 AM Referred By: Jamal Tate Confirmed By: AALIYAH KNOTT MD
[2024-11-21] MEDS: Morphine 4 MG/ML Syringe IV (18:13)
[2024-11-21 18:27] LABS: Troponin T High Sens 2 HR 9 ng/L (<=22)
--- NOTE | 2024-11-21 18:48 | CT_ITS ---
PROCEDURE: CTA CHEST W/WO CONTRAST 11/21/2024 REASON FOR EXAM: R/O DISSECTION TECHNIQUE: CTA axial imaging of the chest with intravenous contrast. Multiplanar and multisequence images were obtained. PATIENT PREPARATION: Per protocol CONTRAST: Omnipaque 350 VOLUME: 100 choose 1 mL Gauge IV One or more dose reduction techniques were used (e.g., Automated exposure control, adjustment of the mA and/or kV according to patient size, use of iterative reconstruction technique). COMPARISON: Chest radiograph 11/21/2024 and chest CTA 02/07/2023 FINDINGS: Hardware: None Lymph nodes: No suspicious adenopathy. Heart: Mild cardiomegaly. No coronary artery calcifications. No pericardial effusion. Thoracic Aorta: No thoracic aortic aneurysm or dissection. Minimal atherosclerotic calcifications. Pulmonary Vessels: No large central pulmonary emboli are identified. Contrast timing is suboptimal for evaluation of more distal branches. Most Proximal Level of Embolus (if embolus present): None Lungs and Airways: Central airways are patent without endobronchial lesions. Large right apical bullae. Upper lobe predominant centrilobular emphysema. Diffuse honeycombing predominantly in the mid lung regions. Diffuse bilateral bronchial wall thickening. Few scattered ground-glass opacities. No pleural effusion. No pneumothorax. No suspicious pulmonary nodules. Bibasilar atelectasis. Upper Abdomen: Partially imaged postoperative changes abdominal aortic stent and sequela of dissection. Bones: Degenerative changes of the thoracic spine. No suspicious osseous lesions. Soft tissues: Chest wall is unremarkable. Thyroid gland is atrophic. CT/CTA Chest W/WO Contrast IMPRESSION: 1. No evidence of pulmonary embolism. 2. Large right apical bullae and upper lobe predominant moderate emphysema. 3. Scattered ground-glass opacities with bronchial wall thickening, suggestive of underlying mild infectious/inflammatory process.. Reading Location: [facility]
[2024-11-21] MEDS: fentaNYL 100 MCG/2 ML Ampul 50 MCG IV (18:51)
[2024-11-21 21:07] LABS: Troponin T High Sens 4 HR 9 ng/L (<=22)
== END 2024-11-21 21:43 | disposition home or self-care (01) ==
PROVIDERS: Emergency Provider Emergency Medicine; PCP Internal Medicine; Referring Provider Emergency Medicine; Visit Provider Emergency Medicine
DX: J44.1 Chronic obstructive pulmonary disease with (acute) exacerbation (principal); I44.0 Atrioventricular block, first degree; I10 Essential (primary) hypertension; E78.5 Hyperlipidemia, unspecified; R07.9 Chest pain, unspecified; F17.210 Nicotine dependence, cigarettes, uncomplicated; F12.90 Cannabis use, unspecified, uncomplicated; Z86.73 Personal history of transient ischemic attack (TIA), and cerebral infarction without residual deficits; E03.9 Hypothyroidism, unspecified
CPT/HCPCS: 71046; 71275; 80048; 84484; 85025; 87631; 93005; 96374; 96375; 99285; Q9967; A4216

== ENCOUNTER 2025-05-03 20:35 | Inpatient (IN) | payer MEDICARE, MEDICAID, SELFPAY ==
[2025-05-03 20:35] VITALS: BP 119/67; PULSE 53; RESP 17; TEMP 36.6; O2SAT 94; BMI 36.0
[2025-05-03 20:55] VITALS: PULSE 39
[2025-05-03 21:17] LABS: Hematocrit 43.4 % (40-54); Hemoglobin 15.3 g/dL (13.0-16.5); Immature Granulocytes Count 0.030 X10^3/uL (0.0-0.0); Mean Corp Hgb Conc 35.3 g/dL (32-36); Mean Corpuscular Volume 92.5 fL (80-94); Mean Platelet Vol. 9.7 fl (6.2-12.0); NRBC Flagged by Analyzer 0 % (0-5); Platelet Count 195 K/mm3 (150-450); RBC Distribution Width CV 12.6 % (11.6-14.6); RBC Distribution Width SD 42.7 fl (35.1-43.9); Red Blood Count 4.69 M/mm3 (4.6-6.2); White Blood Count 9.5 K/mm3 (4.4-11.0)
--- NOTE | 2025-05-03 21:17 | CT_ITS ---
PROCEDURE: CT/Brain/Head without Contrast
[2025-05-03 21:35] VITALS: BP 137/66; PULSE 41; RESP 16; O2SAT 93
[2025-05-03 21:35] LABS: AST(SGOT) 25 U/L (<=37); Alanine Aminotransfer ALT/SGPT 11 U/L (<=46); Albumin, Serum 3.7 g/dL (3.4-4.8); Alkaline Phosphatase 63 U/L (40-129); Anion Gap 9 (5-15); BUN 20 mg/dL (4-19); BUN/Creat Ratio 23.2 RATIO (10-20); Calcium,Total 9.1 mg/dL (7.6-11.0); Carbon Dioxide 22.8 mmol/L (21.0-32.0); Chloride 107 mmol/L (98-108); Estimated Creatinine Clearance 100.62 ml/min (50-250); Globulin 3.1 g/dL (2.2-4.2); Glucose 152 mg/dL (70-99); Potassium 3.9 mmol/L (3.3-5.1)
[2025-05-03 21:47] LABS: Troponin T High Sensitivity 14 ng/L (<=22)
[2025-05-03 22:00] VITALS: BP 106/71; PULSE 41; RESP 18; O2SAT 92
--- NOTE | 2025-05-03 22:46 | EX.ED.VIS.HA ---
HPI History of Present Illness Chief Complaint: Headache Narrative Narrative: 64-year-old male presents with his because of a headache that increased this evening at around 730. He relates history that back in June of last year, approximately 11 months ago, he had surgery for brain tumors at [facility]. Since then, he has intermittent headaches. He states he lives with a baseline headache at times. Today he had his usual headache, but he laid down for a nap and when he awoke, states that he had increased pain behind his eyes. He denies any nausea or vomiting. He has history of atrial fibrillation but is not on blood thinners ever since he had brain surgery according to his . Additionally, she states that he is not on a beta-bethany for rate control for this. He denies any chest pain or shortness of breath, no nausea or vomiting. He presents mainly because of headache. He has chronic paresthesias of his arms and legs. [facility] Medical History Hx of blood clots Atrial fibrillation Hemorrhagic stroke Marijuana smoker Atrial flutter Back pain Hypertension Hypothyroidism Home Medications ?Medication ?Instructions ?Recorded ?Last Taken ?Type amitriptyline 10 mg tablet 25 mg PO QHS 06/23/13 10/30/16 History lisinopril 5 mg tablet 10 mg PO DAILY 11/18/14 10/31/16 History levothyroxine 150 mcg tablet 150 mcg PO DAILY 11/01/16 Unknown History gabapentin 100 mg capsule 100 mg PO Q8 06/23/24 Unknown History pantoprazole 40 mg tablet,delayed 40 mg PO DAILY 06/23/24 Unknown History release atorvastatin 80 mg tablet 80 mg PO QHS cholesterol 11/21/24 Unknown History nifedipine 30 mg tablet,extended 30 mg PO DAILY 11/21/24 Unknown History release 24 hr albuterol sulfate 90 mcg/actuation 2 puff inhalation Q4H PRN PRN 05/03/25 Unknown History aerosol inhaler shortness of breath or wheezing Allergy/AdvReac Type Severity Reaction Status Date / Time No Known Allergies Allergy Verified 05/03/25 20:35 Surgical History Hx of inguinal herniorrhaphy Social History household members: spouse Smoking Status: Light Smoker (<10/day) substance use type: marijuana ROS ROS ED ROS Narrative Review of systems is positive for headache and pain behind eyes. History of chronic headaches and chronic paresthesias. No fevers or chills, no nausea or vomiting, no neck pain, no chest pain or shortness of breath. No exacerbating or alleviating factors. EXAM Physical Exam Narrative Exam Narrative: Afebrile. Vital signs noted. Nontoxic-appearing. Patient bradycardic. Cardiovascular examination otherwise reveals regular rhythm. Lungs are clear to auscultation bilaterally. Abdomen is soft and nontender with normoactive bowel sounds. Neurological examination is nonfocal, nonlateralizing. Moves all extremities. Awake, alert, interactive, appropriate. Const Vital Signs: 05/03/25 20:35 05/03/25 20:55 05/03/25 21:35 Temperature 97.8 F Temperature Source Oral Pulse Rate 53 L 39 L 41 L Respiratory Rate 17 16 Blood Pressure 119/67 137/66 H Blood Pressure Mean 84 89 Pulse Ox 94 93 Oxygen Delivery Method Room Air Room Air 05/03/25 22:00 05/03/25 23:00 Temperature Temperature Source Pulse Rate 41 L 39 L Respiratory Rate 18 16 Blood Pressure 106/71 105/61 Blood Pressure Mean 82 75 Pulse Ox 92 92 Oxygen Delivery Method Room Air Room Air MDM MDM MDM Narrative Medical decision making narrative: Differential diagnosis includes but not limited to return of brain tumor versus intracranial hemorrhage versus cephalgia/headache disorder. Patient was bradycardic so RN called for EKG. On my independent interpretation it shows atrial flutter with variable AV block at 42 bpm. He will be placed on a patient monitor. I reviewed his laboratory work and he has a white count of 9.5 which is normal, hemoglobin normal at 15.3, hematocrit 43.4, platelet count 195. High-sensitivity troponin is 14. CMP shows glucose elevated at 152 with a normal anion gap of 9, BUN of 20 and creatinine 0.87. I reviewed the radiology report of the CT of the brain. There are postsurgical changes. There is minimal extra-axial hyperdensity which could be residual fluid or dural thickening. There is no mass effect. There is no definitive bleeding. Upon repeat examination, patient resting comfortably and sleeping. He states his headache has improved. However, on the monitor, he has variable heart rate as low as the 30s. He is not on a beta-bethany. Given his extreme bradycardia, I do feel that he merits observation. Patient will be discussed with Dr. Mon for observation in the PCU. He is in stable condition. History & Record Review Discussion w/independent historian: Patient and Family () Additional record(s) reviewed:: Prior ED visit (Previous bradycardia) Lab Data Attestation: I reviewed the patient's lab results. Labs: Laboratory Results - last 24 hr 05/03/25 21:10 WBC 9.5 RBC 4.69 Hgb 15.3 Hct 43.4 MCV 92.5 MCH 32.6 H MCHC 35.3 RDW Std Deviation 42.7 RDW Coeff of Celeste 12.6 Plt Count 195 MPV 9.7 Immature Gran % (Auto) 0.300 Neut % (Auto) 50.4 Lymph % (Auto) 32.2 [place] % (Auto) 10.4 H Eos % (Auto) 5.4 H Baso % (Auto) 1.3 H Absolute Neuts (auto) 4.8 Absolute Lymphs (auto) 3.05 Nucleated RBC % 0 Sodium 138 Potassium 3.9 Chloride 107 Carbon Dioxide 22.8 Anion Gap 9 BUN 20 H Creatinine 0.87 Estim Creat Clear Calc 100.62 Est GFR (MDRD) Non-Af 96 BUN/Creatinine Ratio 23.2 H Glucose 152 H Calcium 9.1 Total Bilirubin 0.50 AST 25 ALT 11 Alkaline Phosphatase 63 Troponin T High Sens 14 D Total Protein 6.8 Albumin 3.7 Globulin 3.1 Albumin/Globulin Ratio 1.2 Radiography Diagnostic Testing: Clinical Impression(s) from Imaging Studies Brain CT 05/03/25 21:17 IMPRESSION: Postoperative changes from prior left craniotomy with minimal extra-axial hyperdensity likely representing postoperative dural thickening or trace residual fluid without mass effect. If there is high clinical concern for subdural hematoma consider MRI. No definite acute intracranial hemorrhage or new mass lesion. Findings of cerebral atrophy and chronic microvascular ischemic disease. Otherwise unremarkable noncontrast CT of the head. Reading Location: [facility] Management Discussion w/another healthcare provider: Hospitalist (Dr. Mon) Discharge Plan Dx/Rx/DC Orders Clinical Impression: Chronic atrial flutter, Headache, Bradycardia Disposition Disposition: Acute Care Hospital [facility]
[2025-05-03 23:00] VITALS: BP 105/61; PULSE 39; RESP 16; O2SAT 92
[2025-05-03 23:11] VITALS: BP 105/61; PULSE 39; RESP 16; TEMP 36.6; O2SAT 92
--- NOTE | 2025-05-03 23:12 | PCM.HP.STD ---
[facility] - [facility] General Date of Admission: 05/03/25 Date of Service: 05/03/25 Chief Complaint: Headache HPI Narrative JENNIE MCCARTHY, is a 64 M who presents to the emergency room with a chief complaint of headache. Patient states that he was taking a nap and woke up at 7:00 this evening with excruciating headache. Patient has significant past medical history of surgery for brain tumors at [facility] Approximately 11 months ago. Since his surgery has had chronic intermittent headaches. He denies any nausea or vomiting. Patient complained of pain behind both of his eyes with blurry vision as well. He also has a history of atrial fibrillation but is not taking blood thinners due to the brain surgery according to ER physician report. Patient denies any chest pain shortness of breath, no nausea no vomiting. Headache has relented somewhat since his arrival in the emergency room. Laboratory studies reveal white blood cell count 9.5, hemoglobin 15.3, hematocrit 43.4, platelets 195, sodium 138, potassium 3.9, chloride 107, bicarb 22.8, BUN 20, creatinine 0.87, glucose 152, AST 25, ALT 11, troponin 14, CT of the brain shows postoperative changes due to left craniotomy and report states if clinical concern for subdural hematoma get MRI, no acute hemorrhage or new mass lesion is seen on CT scan. Due to persistent heart rate in the 30s admission for observation was requested and will obtain MRI in the morning. [facility] Medical History Hx of blood clots Atrial fibrillation Hemorrhagic stroke Marijuana smoker Atrial flutter Back pain Hypertension Hypothyroidism Home Medications ?Medication ?Instructions ?Recorded ?Last Taken ?Type amitriptyline 10 mg tablet 25 mg PO QHS 06/23/13 10/30/16 History lisinopril 5 mg tablet 10 mg PO DAILY 11/18/14 10/31/16 History levothyroxine 150 mcg tablet 150 mcg PO DAILY 11/01/16 Unknown History gabapentin 100 mg capsule 100 mg PO Q8 06/23/24 Unknown History pantoprazole 40 mg tablet,delayed 40 mg PO DAILY 06/23/24 Unknown History release atorvastatin 80 mg tablet 80 mg PO QHS cholesterol 11/21/24 Unknown History nifedipine 30 mg tablet,extended 30 mg PO DAILY 11/21/24 Unknown History release 24 hr albuterol sulfate 90 mcg/actuation 2 puff inhalation Q4H PRN PRN 05/03/25 Unknown History aerosol inhaler shortness of breath or wheezing Allergy/AdvReac Type Severity Reaction Status Date / Time No Known Allergies Allergy Verified 05/03/25 20:35 Surgical History Hx of inguinal herniorrhaphy Social History household members: spouse Smoking Status: Light Smoker (<10/day) substance use type: marijuana ROS Constitutional Constitutional: Denies chills or fever(s) Eyes Eyes: Reports blurry vision ENT HEENT: Reports headache(s); Denies dysphagia Cardiovascular Cardiovascular: Denies chest pain or syncope Respiratory/Chest Respiratory/Chest: Denies shortness of breath at rest Gastrointestinal Gastrointestinal: Denies abdominal pain Genitourinary Genitourinary: Denies dysuria Musculoskeletal Musculoskeletal: Reports neck pain; Denies back pain Integumentary Integumentary: Denies dry skin Neurologic Neurologic: Denies abnormal gait Psychiatric Psychiatric: Denies anxiety Endocrine Endocrinology: Denies change in body appearance Hematologic/Lymphatic Hematologic/Lymphatic: Denies anemia Vital Signs Vital Signs Vital Signs: 05/03/25 20:35 05/03/25 20:55 05/03/25 21:35 Temperature 97.8 F Temperature Source Oral Pulse Rate 53 L 39 L 41 L Respiratory Rate 17 16 Blood Pressure 119/67 137/66 H Blood Pressure Mean 84 89 Pulse Ox 94 93 Oxygen Delivery Method Room Air Room Air 05/03/25 22:00 05/03/25 23:00 05/03/25 23:11 Temperature 97.8 F Temperature Source Pulse Rate 41 L 39 L 39 L Respiratory Rate 18 16 16 Blood Pressure 106/71 105/61 105/61 Blood Pressure Mean 82 75 75 Pulse Ox 92 92 92 Oxygen Delivery Method Room Air Room Air Weight Weight: 237 lb Body Mass Index (BMI) 36.0 Physical Exam Const oriented x3 General Appearance: cooperative and well developed HEENT normocephalic and head/scalp atraumatic Eyes PERRL and EOMs intact bilaterally Neck no lymphadenopathy Lymph Lymphatic: no lymphadenopathy noted Resp normal respiratory effort, normal air movement and clear to auscultation bilaterally Cardio S1 normal heart sound, S2 normal heart sound and no murmurs Rate: bradycardia Rhythm: abnormal rhythm irregularly irregular GI normal to inspection, nondistended, normoactive bowel sounds Extremity normal capillary refill Skin General Skin Exam: no breakdown Neuro CN's II-XII intact bilaterally, no focal motor deficits and no sensory deficits noted Psych thought process normal, cooperative and affect normal Results Lab / Micro Data 05/03/25 21:10 05/03/25 21:10 Labs: Laboratory Results - last 24 hr 05/03/25 21:10: WBC 9.5, RBC 4.69, Hgb 15.3, Hct 43.4, MCV 92.5, MCH 32.6 H, MCHC 35.3, RDW Std Deviation 42.7, RDW Coeff of Celeste 12.6, Plt Count 195, MPV 9.7, Immature Gran % (Auto) 0.300, Neut % (Auto) 50.4, Lymph % (Auto) 32.2, [place] % (Auto) 10.4 H, Eos % (Auto) 5.4 H, Baso % (Auto) 1.3 H, Absolute Neuts (auto) 4.8, Absolute Lymphs (auto) 3.05, Nucleated RBC % 0, Sodium 138, Potassium 3.9, Chloride 107, Carbon Dioxide 22.8, Anion Gap 9, BUN 20 H, Creatinine 0.87, Estim Creat Clear Calc 100.62, Est GFR (MDRD) Non-Af 96, BUN/Creatinine Ratio 23.2 H, Glucose 152 H, Calcium 9.1, Total Bilirubin 0.50, AST 25, ALT 11, Alkaline Phosphatase 63, Troponin T High Sens 14 D, Total Protein 6.8, Albumin 3.7, Globulin 3.1, Albumin/Globulin Ratio 1.2 Imaging Radiology Impression Brain CT 05/03/25 21:17 IMPRESSION: Postoperative changes from prior left craniotomy with minimal extra-axial hyperdensity likely representing postoperative dural thickening or trace residual fluid without mass effect. If there is high clinical concern for subdural hematoma consider MRI. No definite acute intracranial hemorrhage or new mass lesion. Findings of cerebral atrophy and chronic microvascular ischemic disease. Otherwise unremarkable noncontrast CT of the head. Reading Location: [id number] Assessment & Plan Assessment/Plan (1) Bradycardia: (2) Headache: (3) Chronic atrial flutter: (4) COPD (chronic obstructive pulmonary disease): (5) Pure hypercholesterolemia: (6) Hypothyroidism: PLAN: Plan 1 headache with history of left craniotomy due to brain tumors?admit patient to progressive care unit for observation will add Toradol 15 mg IV every 6 as needed headache and order MRI to be done in AM. 2. Atrial flutter with bradycardia?continue cardiac monitoring overnight, repeat CBC BMP in the morning. Patient is relatively asymptomatic from his bradycardia however may need cardiology consult if this is persistent 3. COPD?continue routine inhalation medication 4. Hypothyroidism?continue levothyroxine and check TSH 5. Hyperlipidemia?continue statin medication 6. DVT prophylaxis?SCDs as anticoagulation was discouraged previously due to brain surgery 7. CODE STATUS full verified Charges/Coding Visit Charges OBSV E&M: 86000 Observ/hosp same date L2
[2025-05-03 23:49] LABS: Troponin T High Sens 2 HR 16 ng/L (<=22)
[2025-05-04] VITALS (10 sets, daily range): BP systolic 98–153; BP diastolic 49–83; PULSE 32–52; RESP 16–18; TEMP 36.4–37.1; O2SAT 92–98; BMI 34.9
[2025-05-04] MEDS: 0.9% Saline Lock 10 ML Syringe IV (00:48)
[2025-05-04 02:00] LABS: Troponin T High Sens 4 HR 15 ng/L (<=22)
[2025-05-04 05:55] LABS: Hematocrit 42.6 % (40-54); Hemoglobin 14.8 g/dL (13.0-16.5); Immature Granulocytes Count 0.030 X10^3/uL (0.0-0.0); Mean Corp Hgb Conc 34.7 g/dL (32-36); Mean Corpuscular Volume 93.4 fL (80-94); Mean Platelet Vol. 10.3 fl (6.2-12.0); NRBC Flagged by Analyzer 0 % (0-5); Platelet Count 169 K/mm3 (150-450); RBC Distribution Width CV 12.6 % (11.6-14.6); RBC Distribution Width SD 43.5 fl (35.1-43.9); Red Blood Count 4.56 M/mm3 (4.6-6.2); White Blood Count 7.6 K/mm3 (4.4-11.0)
--- NOTE | 2025-05-04 05:55 | MRI_ITS ---
PROCEDURE: MRI/Brain without Contrast
[2025-05-04 06:29] LABS: Anion Gap 10 (5-15); BUN 22 mg/dL (4-19); BUN/Creat Ratio 23.0 RATIO (10-20); Calcium,Total 8.9 mg/dL (7.6-11.0); Carbon Dioxide 22.6 mmol/L (21.0-32.0); Chloride 107 mmol/L (98-108); Estimated Creatinine Clearance 90.45 ml/min (50-250); Glucose 134 mg/dL (70-99); Potassium 3.9 mmol/L (3.3-5.1)
--- NOTE | 2025-05-04 10:34 | PCM.CONS.C ---
Assessment & Plan Assessment/Plan (1) Sick sinus syndrome: PLAN: Underlying rhythm atrial flutter with slow ventricular response. Variable conduction. Patient symptomatic with occasional presyncope and intermittent lightheadedness. In my opinion, the patient will benefit from a single-chamber permanent pacemaker. Discussed with patient. Agrees. Will schedule with Dr. Hampton. (2) Atrial flutter: PLAN: Patient not a candidate for anticoagulation. Previous history of spontaneous intracranial bleed on apixaban. (3) History of intracranial hemorrhage: PLAN: See #2 above. HPI Consult Data Date of Consult: 05/04/25 HPI Narrative Reason for Consultation: Atrial flutter with slow ventricular response HPI Narrative: 64-year-old gentleman with past medical history significant for atrial flutter. According to him, he was on anticoagulation previously but then developed a spontaneous subdural bleed. This was about a year ago. The bleed was evacuated and his anticoagulation has since then been stopped. Per patient, for the past couple of months, he has been feeling intermittently lightheaded. On occasions, he has felt as if he is going to pass out. No syncope. Denies any chest pains. Denies any palpitations. Also complains of intermittent headaches. [facility] Medical History (Updated 05/04/25 @ 10:[address] Kailey Yanez MD) Hx of blood clots Atrial fibrillation Hemorrhagic stroke Marijuana smoker Atrial flutter Back pain Hypertension Hypothyroidism Home Medications ?Medication ?Instructions ?Recorded ?Last Taken ?Type amitriptyline 10 mg tablet 25 mg PO QHS 06/23/13 05/03/25 History lisinopril 5 mg tablet 10 mg PO DAILY 11/18/14 05/03/25 History levothyroxine 150 mcg tablet 150 mcg PO DAILY 11/01/16 05/03/25 History gabapentin 100 mg capsule 100 mg PO Q8 06/23/24 05/03/25 History pantoprazole 40 mg tablet,delayed 40 mg PO DAILY 06/23/24 05/03/25 History release atorvastatin 80 mg tablet 80 mg PO QHS cholesterol 11/21/24 05/03/25 History nifedipine 30 mg tablet,extended 30 mg PO DAILY 11/21/24 Unknown History release 24 hr albuterol sulfate 90 mcg/actuation 2 puff inhalation Q4H PRN PRN 05/03/25 Unknown History aerosol inhaler shortness of breath or wheezing Allergy/AdvReac Type Severity Reaction Status Date / Time No Known Allergies Allergy Verified 05/03/25 20:35 Surgical History Hx of inguinal herniorrhaphy Social History household members: spouse Smoking Status: Light Smoker (<10/day) substance use type: marijuana Physical Exam Narrative Comfortable. No apparent distress. Heart sounds 1 and 2 noted. Irregularly irregular. Bradycardic. Chest clear to auscultation bilaterally. Alert oriented x 3. No ankle edema. Objective Data Vital Signs: Vital Signs Temp Pulse Resp BP Pulse Ox O2 Del Method O2 Flow Rate 98.4 F 40 L 16 99/65 97 Room Air 2 05/04/25 04:32 05/04/25 04:32 05/04/25 04:32 05/04/25 04:32 05/04/25 04:32 05/04/25 04:32 05/04/25 01:30 Oxygen Flow Rate (L/min) 2 Oxygen Delivery Method Room Air Weight: 233 lb 3.985 oz Body Mass Index (BMI) 34.9 Lab / Micro Data Attestation: I reviewed the patient's lab results. 05/04/25 04:55 05/04/25 04:55 Labs: Laboratory Results - last 24 hr 05/03/25 21:10: WBC 9.5, RBC 4.69, Hgb 15.3, Hct 43.4, MCV 92.5, MCH 32.6 H, MCHC 35.3, RDW Std Deviation 42.7, RDW Coeff of Celeste 12.6, Plt Count 195, MPV 9.7, Immature Gran % (Auto) 0.300, Neut % (Auto) 50.4, Lymph % (Auto) 32.2, [place] % (Auto) 10.4 H, Eos % (Auto) 5.4 H, Baso % (Auto) 1.3 H, Absolute Neuts (auto) 4.8, Absolute Lymphs (auto) 3.05, Nucleated RBC % 0, Sodium 138, Potassium 3.9, Chloride 107, Carbon Dioxide 22.8, Anion Gap 9, BUN 20 H, Creatinine 0.87, Estim Creat Clear Calc 100.62, Est GFR (MDRD) Non-Af 96, BUN/Creatinine Ratio 23.2 H, Glucose 152 H, Calcium 9.1, Total Bilirubin 0.50, AST 25, ALT 11, Alkaline Phosphatase 63, Troponin T High Sens 14 D, Total Protein 6.8, Albumin 3.7, Globulin 3.1, Albumin/Globulin Ratio 1.2 05/03/25 23:00: Troponin T Hi Sens 2 Hr 16 05/04/25 01:09: Troponin T Hi Sens 4Hr 15 05/04/25 04:55: WBC 7.6, RBC 4.56 L, Hgb 14.8, Hct 42.6, MCV 93.4, MCH 32.5 H, MCHC 34.7, RDW Std Deviation 43.5, RDW Coeff of Celeste 12.6, Plt Count 169, MPV 10.3, Immature Gran % (Auto) 0.400, Neut % (Auto) 46.3 L, Lymph % (Auto) 36.0, [place] % (Auto) 9.5, Eos % (Auto) 6.6 H, Baso % (Auto) 1.2 H, Absolute Neuts (auto) 3.5, Absolute Lymphs (auto) 2.74, Nucleated RBC % 0, Sodium 139, Potassium 3.9, Chloride 107, Carbon Dioxide 22.6, Anion Gap 10, BUN 22 H, Creatinine 0.96, Estim Creat Clear Calc 90.45, Est GFR (MDRD) Non-Af 88, BUN/Creatinine Ratio 23.0 H, Glucose 134 H, Calcium 8.9, TSH 5.140 H Rhythm Strip Rhythm Strip: Atrial flutter Rate: 40 Cardiology Labs/Tests 05/03/25 21:10: WBC 9.5, RBC 4.69, Hgb 15.3, Hct 43.4, MCV 92.5, MCH 32.6 H, MCHC 35.3, Plt Count 195, MPV 9.7, Immature Gran % (Auto) 0.300, Neut % (Auto) 50.4, Lymph % (Auto) 32.2, [place] % (Auto) 10.4 H, Eos % (Auto) 5.4 H, Baso % (Auto) 1.3 H, Absolute Neuts (auto) 4.8, Nucleated RBC % 0, Sodium 138, Potassium 3.9, Chloride 107, Carbon Dioxide 22.8, Anion Gap 9, BUN 20 H, Creatinine 0.87, Est GFR (MDRD) Non-Af 96, BUN/Creatinine Ratio 23.2 H, Glucose 152 H, Calcium 9.1, Total Bilirubin 0.50 05/04/25 04:55: WBC 7.6, RBC 4.56 L, Hgb 14.8, Hct 42.6, MCV 93.4, MCH 32.5 H, MCHC 34.7, Plt Count 169, MPV 10.3, Immature Gran % (Auto) 0.400, Neut % (Auto) 46.3 L, Lymph % (Auto) 36.0, [place] % (Auto) 9.5, Eos % (Auto) 6.6 H, Baso % (Auto) 1.2 H, Absolute Neuts (auto) 3.5, Nucleated RBC % 0, Sodium 139, Potassium 3.9, Chloride 107, Carbon Dioxide 22.6, Anion Gap 10, BUN 22 H, Creatinine 0.96, Est GFR (MDRD) Non-Af 88, BUN/Creatinine Ratio 23.0 H, Glucose 134 H, Calcium 8.9 Rhythm: EKG: Atrial flutter with variable conduction. Slow ventricular response. ECHO: Stress Test: Cardiac Cath: PCI: CT Surgery: Holter monitor: EPS: PPM: CXR: Chest CT Scan: Radiography Diagnostic Testing: Radiology Impression Brain CT 05/03/25 21:17 IMPRESSION: Postoperative changes from prior left craniotomy with minimal extra-axial hyperdensity likely representing postoperative dural thickening or trace residual fluid without mass effect. If there is high clinical concern for subdural hematoma consider MRI. No definite acute intracranial hemorrhage or new mass lesion. Findings of cerebral atrophy and chronic microvascular ischemic disease. Otherwise unremarkable noncontrast CT of the head. Reading Location: [id number] Risk Score for UA/STEMI Assesmment (YES = 1) Risk Stratification Applicable: No
--- NOTE | 2025-05-04 10:37 | PN.HOSP_ITS ---
Reason for Visit
--- NOTE | 2025-05-04 10:37 | PCM.PN.HOSP ---
Reason for Visit Chief Complaint: Headache Subjective Subjective Patient is a 64-year-old gentleman with history of left craniotomy secondary to subdural hematoma who presented to the emergency department with intractable headache. CT of the head obtained demonstrated postoperative changes from prior left craniotomy. Patient was also found to be bradycardic. Admitted to monitored bed for subsequent management Objective Data Objective Data Vital Signs: Vital Signs Temp Pulse Resp BP Pulse Ox O2 Del Method O2 Flow Rate 98.8 F 52 L 16 121/75 H 98 Room Air 2 05/04/25 10:33 05/04/25 10:33 05/04/25 10:33 05/04/25 10:33 05/04/25 10:33 05/04/25 10:33 05/04/25 01:30 Oxygen Flow Rate (L/min) 2 Oxygen Delivery Method Room Air Weight: 105.8 kg Body Mass Index (BMI) 34.9 Lab / Micro Data 05/04/25 04:55 05/04/25 04:55 Labs: Laboratory Results - last 24 hr 05/03/25 21:10: WBC 9.5, RBC 4.69, Hgb 15.3, Hct 43.4, MCV 92.5, MCH 32.6 H, MCHC 35.3, RDW Std Deviation 42.7, RDW Coeff of Celeste 12.6, Plt Count 195, MPV 9.7, Immature Gran % (Auto) 0.300, Neut % (Auto) 50.4, Lymph % (Auto) 32.2, [place] % (Auto) 10.4 H, Eos % (Auto) 5.4 H, Baso % (Auto) 1.3 H, Absolute Neuts (auto) 4.8, Absolute Lymphs (auto) 3.05, Nucleated RBC % 0, Sodium 138, Potassium 3.9, Chloride 107, Carbon Dioxide 22.8, Anion Gap 9, BUN 20 H, Creatinine 0.87, Estim Creat Clear Calc 100.62, Est GFR (MDRD) Non-Af 96, BUN/Creatinine Ratio 23.2 H, Glucose 152 H, Calcium 9.1, Total Bilirubin 0.50, AST 25, ALT 11, Alkaline Phosphatase 63, Troponin T High Sens 14 D, Total Protein 6.8, Albumin 3.7, Globulin 3.1, Albumin/Globulin Ratio 1.2 05/03/25 23:00: Troponin T Hi Sens 2 Hr 16 05/04/25 01:09: Troponin T Hi Sens 4Hr 15 05/04/25 04:55: WBC 7.6, RBC 4.56 L, Hgb 14.8, Hct 42.6, MCV 93.4, MCH 32.5 H, MCHC 34.7, RDW Std Deviation 43.5, RDW Coeff of Celeste 12.6, Plt Count 169, MPV 10.3, Immature Gran % (Auto) 0.400, Neut % (Auto) 46.3 L, Lymph % (Auto) 36.0, [place] % (Auto) 9.5, Eos % (Auto) 6.6 H, Baso % (Auto) 1.2 H, Absolute Neuts (auto) 3.5, Absolute Lymphs (auto) 2.74, Nucleated RBC % 0, Sodium 139, Potassium 3.9, Chloride 107, Carbon Dioxide 22.6, Anion Gap 10, BUN 22 H, Creatinine 0.96, Estim Creat Clear Calc 90.45, Est GFR (MDRD) Non-Af 88, BUN/Creatinine Ratio 23.0 H, Glucose 134 H, Calcium 8.9, TSH 5.140 H Radiography Diagnostic Testing: Radiology Impression Brain CT 05/03/25 21:17 IMPRESSION: Postoperative changes from prior left craniotomy with minimal extra-axial hyperdensity likely representing postoperative dural thickening or trace residual fluid without mass effect. If there is high clinical concern for subdural hematoma consider MRI. No definite acute intracranial hemorrhage or new mass lesion. Findings of cerebral atrophy and chronic microvascular ischemic disease. Otherwise unremarkable noncontrast CT of the head. Reading Location: [facility] Physical Exam Narrative GENERAL: cooperative HEENT: Atraumatic; normocephalic EYES; Anicteric, Normal Conjunctiva NECK; supple, normal thyroid, RESPIRATORY: Diminished to auscultation CARDIOVASCULAR: Regular S1 S2, GI: soft, normoactive bowel sounds, : No Renal angle tenderness; EXTREMITIES: No edema, no clubbing, MUSCULOSKELETAL: no muscle wasting NEURO: Awake; no lateralizing signs. SKIN: No Rash PSYCH; Flat affect Assessment & Plan Assessment/Plan (1) Bradycardia: (2) Chronic atrial flutter: PLAN: Plan Patient is a 64-year-old gentleman with history of left craniotomy secondary to subdural hematoma who presented to the emergency department with intractable headache. CT of the head obtained demonstrated postoperative changes from prior left craniotomy. Patient was also found to be bradycardic. Admitted to monitored bed for subsequent management 1. Intractable headache ? Patient admitted to a monitored bed for symptom management. Imaging studies obtained on admission did show Postoperative changes from prior left craniotomy with minimal extra-axial hyperdensity likely representing postoperative dural thickening or trace residual fluid without mass effect. If there is high clinical concern for subdural hematoma consider MRI. No definite acute intracranial hemorrhage or new mass lesion. Findings of cerebral atrophy and chronic microvascular ischemic disease. Otherwise unremarkable noncontrast CT of the head. 2. Atrial flutter with significant bradycardia ? Patient manage continuously on telemetry case discussed with cardiology?Dr. Yanez plan is for patient to undergo possible pacemaker placement on 05/06 or 05/07/[address] Hampton returns 3. Hypertension ? Blood pressure controlled, home medications continued with dose adjustment as needed 4. Hypothyroidism ? Patient is on levothyroxine home dose continued 5. Dyslipidemia ?Patient is on statin therapy, continued at home dose 6. GERD ? On PPI 7. History of subdural hematoma ? Status post craniotomy 8. Class II obesity with BMI of 35 ? Complicating care weight loss advised 9. DVT prophylaxis ? Bilateral SCD Time spent in the patient's overall evaluation,decision-making process, review of diagnostic data, adjustment of management, discussion with other providers, nursing nursing and ancillary staff involved in patient's care documentation, 38 Minutes Charges/Coding Visit Charges Inpatient E&M: 07993 Subs Hosp L2
--- NOTE | 2025-05-04 10:39 | ECHOD_ITS ---
Reason For Study ECHO/Echo Complete
--- NOTE | 2025-05-04 14:24 | CHAPLAIN ---
Type of Pastoral Visit _x__ Initial Visit ___ Follow-up Visit ___ On-call Visit ___ General Patient Visit ___ Spiritual Assessment ___ Family Conference ___ Bereavement ___ Rapid Response ___ Code Blue ___ Other (describe below) Pastoral Care Referral From _x__ Patient ___ Family ___ Nurse ___ Physician ___ Knurling Machine Tender ___ Supervisor [employer] ___ Other (describe below) Sacrament/Intervention _x__ Active listening ___ Anointing ___ Holiness ___ Bereavement ___ Communion ___ Evita exploration ___ ___ Life review _x__ Prayer ___ Reconciliation ___ Sacrament of Sick _x__ Supportive presence ___ Wedding ___ Other (describe below) Pastoral Comments patient talks about his medical plan and the need to stay overnight yet tonight in the hospital; pt states very little concerns about the admission to hospital and the procedure planned; however pt says that he wants to live longer and to watch his grandchildren become adults; pt has 6 grandsons out of state and 4 granddaughters near by; pt finds trinity in family; pt welcomes prayer for his support
[2025-05-05 03:35] VITALS: BP 121/87; PULSE 56; RESP 16; TEMP 36.9; O2SAT 94
[2025-05-05] MEDS: 0.9% Saline Lock 10 ML Syringe IV (05:41)
--- NOTE | 2025-05-05 08:09 | PN.HOSP_ITS ---
Reason for Visit
--- NOTE | 2025-05-05 08:09 | PCM.PN.HOSP ---
Reason for Visit Chief Complaint: Headache Subjective Subjective Patient seen headache improved with symptom management.. Patient bradycardia appears to have resolved with heart rate in the 50s Objective Data Objective Data Vital Signs: Vital Signs Temp Pulse Resp BP Pulse Ox O2 Del Method O2 Flow Rate 98.4 F 56 L 16 121/87 H 94 Room Air 2 05/05/25 03:35 05/05/25 03:35 05/05/25 03:35 05/05/25 03:35 05/05/25 03:35 05/05/25 03:35 05/04/25 01:30 Oxygen Flow Rate (L/min) 2 Oxygen Delivery Method Room Air Weight: 105.8 kg Body Mass Index (BMI) 34.9 Lab / Micro Data 05/04/25 04:55 05/04/25 04:55 Radiography Diagnostic Testing: Radiology Impression Brain MRI 05/04/25 05:55 IMPRESSION: 1. Ventriculomegaly suggestive of normal pressure hydrocephalus. 2. No significant residual left-sided subdural fluid or hematoma. Status post left frontal craniotomy. 3. Focal encephalomalacia in the right frontal lobe consistent with an old frontal contusion. 4. Findings of chronic ischemic white matter disease. 5. Other findings as noted. Reading Location: [facility] Echocardiogram 05/04/25 10:39 Interpretation Summary Mild concentric left ventricular hypertrophy. LVEF 60%. GLS is -15.8% which is borderline abnormal. Stage I diastolic dysfunction. There is mild biatrial dilatation. Mild (1+) mitral valve insufficiency. Ordering Physician: Kailey Yanez Referring Physician: Levon Corral M.D. Performed By: Marimar Wlikes RDCS Rhythm Strip Rhythm Strip: Atrial flutter Rate: 40 Physical Exam Narrative GENERAL: cooperative HEENT: Atraumatic; normocephalic EYES; Anicteric, Normal Conjunctiva NECK; supple, normal thyroid, RESPIRATORY: Diminished to auscultation CARDIOVASCULAR: Regular S1 S2, GI: soft, normoactive bowel sounds, : No Renal angle tenderness; EXTREMITIES: No edema, no clubbing, MUSCULOSKELETAL: no muscle wasting NEURO: Awake; no lateralizing signs. SKIN: No Rash PSYCH; Flat affect Assessment & Plan Assessment/Plan (1) Bradycardia: (2) Chronic atrial flutter: PLAN: Plan Patient is a 64-year-old gentleman with history of left craniotomy secondary to subdural hematoma who presented to the emergency department with intractable headache. CT of the head obtained demonstrated postoperative changes from prior left craniotomy. Patient was also found to be bradycardic. Admitted to monitored bed for subsequent management 1. Intractable headache ? Patient admitted to a monitored bed for symptom management. Imaging studies obtained on admission did show Postoperative changes from prior left craniotomy with minimal extra-axial hyperdensity likely representing postoperative dural thickening or trace residual fluid without mass effect. If there is high clinical concern for subdural hematoma consider MRI. No definite acute intracranial hemorrhage or new mass lesion. Findings of cerebral atrophy and chronic microvascular ischemic disease. Otherwise unremarkable noncontrast CT of the head. ? 05/05/2025; patient headache has improved with symptom management 2. Atrial flutter with significant bradycardia ? Patient manage continuously on telemetry case discussed with cardiology?Dr. Yanez plan is for patient to undergo possible pacemaker placement on 05/06 or 05/07/[address] Hampton returns ? 05/05/2025; patient bradycardia appears to be improving heart rate currently in the 50s patient remains in a flutter 3. Hypertension ? Blood pressure controlled, home medications continued with dose adjustment as needed 4. Hypothyroidism ? Patient is on levothyroxine home dose continued 5. Dyslipidemia ?Patient is on statin therapy, continued at home dose. 6. GERD ? On PPI 7. History of subdural hematoma ? Status post craniotomy 8. Class II obesity with BMI of 35 ? Complicating care weight loss advised 9. DVT prophylaxis ? Bilateral SCD Time spent in the patient's overall evaluation,decision-making process, review of diagnostic data, adjustment of management, discussion with other providers, nursing nursing and ancillary staff involved in patient's care documentation, 35 Minutes Charges/Coding Visit Charges Inpatient E&M: 52011 Subs Hosp L2
[2025-05-05 09:25] VITALS: BP 147/88; PULSE 55; RESP 16; TEMP 36; O2SAT 96
--- NOTE | 2025-05-05 13:11 | PCM.PN.CARD ---
Subjective Subjective No complaints. Objective Data Vital Signs: Vital Signs Temp Pulse Resp BP Pulse Ox O2 Del Method O2 Flow Rate 96.8 F L 55 L 16 147/88 H 96 Room Air 2 05/05/25 09:25 05/05/25 09:25 05/05/25 09:25 05/05/25 09:25 05/05/25 09:25 05/05/25 11:44 05/04/25 01:30 Oxygen Flow Rate (L/min) 2 Oxygen Delivery Method Room Air Weight: 233 lb 3.985 oz Body Mass Index (BMI) 34.9 Intake & Output: Intake and Output for Last 24 Hours 05/03/25 05/04/25 05/05/25 23:59 23:59 23:59 Intake Total 480 / 480 Balance 480 / 480 Lab / Micro Data 05/04/25 04:55 05/04/25 04:55 Rhythm Strip Rhythm Strip: Atrial flutter Rate: 40 Cardiology Labs/Tests Rhythm: EKG: ECHO: Stress Test: Cardiac Cath: PCI: CT Surgery: Holter monitor: EPS: PPM: CXR: Chest CT Scan: Radiography Diagnostic Testing: Radiology Impression Brain MRI 05/04/25 05:55 IMPRESSION: 1. Ventriculomegaly suggestive of normal pressure hydrocephalus. 2. No significant residual left-sided subdural fluid or hematoma. Status post left frontal craniotomy. 3. Focal encephalomalacia in the right frontal lobe consistent with an old frontal contusion. 4. Findings of chronic ischemic white matter disease. 5. Other findings as noted. Reading Location: [id number] Echocardiogram 05/04/25 10:39 Interpretation Summary Mild concentric left ventricular hypertrophy. LVEF 60%. GLS is -15.8% which is borderline abnormal. Stage I diastolic dysfunction. There is mild biatrial dilatation. Mild (1+) mitral valve insufficiency. Ordering Physician: Kailey Yanez Referring Physician: Levon Corral M.D. Performed By: Marimar Wilkes RDCS Physical Exam Narrative Comfortable. No apparent distress. Heart sounds 1 and 2 noted. Irregularly irregular. Bradycardic. Chest clear to auscultation bilaterally. Alert oriented x 3. No ankle edema. Assessment & Plan Assessment/Plan (1) Sick sinus syndrome: PLAN: Atrial flutter with slow ventricular response. Symptomatic. For PPM implant tomorrow with Dr. Hampton (2) Atrial flutter: PLAN: Patient not a candidate for anticoagulation. Previous history of spontaneous intracranial bleed on apixaban. (3) History of intracranial hemorrhage: PLAN: See #2 above.
--- NOTE | 2025-05-05 13:30 | CASEMGMT ---
LUPE POSADA Face to Face with patient for initial transition planning/care coordination assessment. RN CM introduced self and role at [facility]. Patient lying in bed, alert and oriented. Patient willing to participate in assessment and is able to answer all questions appropriately. Care providers, pharmacy, and demographics verified. Strata: 3 PCP: [facility] Specialists: home health aide caregiver in [place] Preferred Pharmacy: [facility] Insurance: [employer] Prescription Benefit: yes Living Will/HPOA: Patient states he is currently working on filling out advance directives LNOK: Living Arrangements: Patient lives with in a first floor apartment with 3 steps to enter. Patient states he is independent at home. Transportation: self, DME/HHC: Patient has shower chair, cane, grab bars, and walker at home. No previous HHC or SNF. Patient wishes to discharge home, denies need for home health at this time. Patient states he has no further needs or concerns at this time. CM to follow for discharge planning needs that may arise. Disposition Plan: Patient to discharge home with family support and follow-up plans in place. Ileana ALEGRE, RN, CM
[2025-05-05 15:22] VITALS: BP 152/92; PULSE 56; RESP 14; TEMP 36.4; O2SAT 96
[2025-05-05 22:15] VITALS: BP 157/97; PULSE 53; RESP 18; TEMP 36.8; O2SAT 95
[2025-05-06] VITALS (13 sets, daily range): BP systolic 133–166; BP diastolic 88–124; PULSE 38–71; RESP 16–18; TEMP 35.9–36.6; O2SAT 92–97
[2025-05-06 04:39] LABS: Hematocrit 45.6 % (40-54); Hemoglobin 15.8 g/dL (13.0-16.5); Immature Granulocytes Count 0.030 X10^3/uL (0.0-0.0); Mean Corp Hgb Conc 34.6 g/dL (32-36); Mean Corpuscular Volume 92.1 fL (80-94); Mean Platelet Vol. 10.0 fl (6.2-12.0); NRBC Flagged by Analyzer 0 % (0-5); Platelet Count 208 K/mm3 (150-450); RBC Distribution Width CV 12.3 % (11.6-14.6); RBC Distribution Width SD 41.5 fl (35.1-43.9); Red Blood Count 4.95 M/mm3 (4.6-6.2); White Blood Count 8.7 K/mm3 (4.4-11.0)
[2025-05-06 05:23] LABS: Anion Gap 11 (5-15); BUN 22 mg/dL (4-19); BUN/Creat Ratio 22.2 RATIO (10-20); Calcium,Total 9.1 mg/dL (7.6-11.0); Carbon Dioxide 22.6 mmol/L (21.0-32.0); Chloride 105 mmol/L (98-108); Estimated Creatinine Clearance 88.61 ml/min (50-250); Glucose 113 mg/dL (70-99); Magnesium 2.3 mg/dL (1.5-2.2); Potassium 3.9 mmol/L (3.3-5.1)
--- NOTE | 2025-05-06 05:55 | EKG12_ITS ---
Test Reason : PACEMAKER PLACEMENT
--- NOTE | 2025-05-06 07:36 | PN.HOSP_ITS ---
Reason for Visit
--- NOTE | 2025-05-06 07:36 | PCM.PN.HOSP ---
Reason for Visit Chief Complaint: Headache Subjective Subjective Patient seen had an uneventful night. Plan is for patient to undergo pacemaker placement this afternoon Objective Data Objective Data Vital Signs: Vital Signs Temp Pulse Resp BP Pulse Ox O2 Del Method O2 Flow Rate 97.6 F L 45 L 16 145/103 H 95 Room Air 2 05/06/25 04:30 05/06/25 04:30 05/06/25 04:30 05/06/25 04:30 05/06/25 04:30 05/06/25 04:30 05/04/25 01:30 Oxygen Flow Rate (L/min) 2 Oxygen Delivery Method Room Air Weight: 105.8 kg Body Mass Index (BMI) 34.9 Intake & Output: Intake and Output for Last 24 Hours 05/04/25 05/05/25 05/06/25 23:59 23:59 23:59 Intake Total 840 / 1240 400 / 400 Balance 840 / 1240 400 / 400 Lab / Micro Data 05/06/25 04:09 05/06/25 04:09 Labs: Laboratory Results - last 24 hr 05/06/25 04:09: WBC 8.7, RBC 4.95, Hgb 15.8, Hct 45.6, MCV 92.1, MCH 31.9, MCHC 34.6, RDW Std Deviation 41.5, RDW Coeff of Celeste 12.3, Plt Count 208, MPV 10.0, Immature Gran % (Auto) 0.300, Neut % (Auto) 51.3, Lymph % (Auto) 29.4, Gaines % (Auto) 10.5 H, Eos % (Auto) 7.5 H, Baso % (Auto) 1.0, Absolute Neuts (auto) 4.5, Absolute Lymphs (auto) 2.56, Nucleated RBC % 0, Sodium 139, Potassium 3.9, Chloride 105, Carbon Dioxide 22.6, Anion Gap 11, BUN 22 H, Creatinine 0.98, Estim Creat Clear Calc 88.61, Est GFR (MDRD) Non-Af 86, BUN/Creatinine Ratio 22.2 H, Glucose 113 H, Calcium 9.1, Phosphorus 2.7, Magnesium 2.3 H Rhythm Strip Rhythm Strip: Atrial flutter Rate: 40 Physical Exam Narrative GENERAL: cooperative HEENT: Atraumatic; normocephalic EYES; Anicteric, Normal Conjunctiva NECK; supple, normal thyroid, RESPIRATORY: Diminished to auscultation CARDIOVASCULAR: Irregular S1-S2 GI: soft, normoactive bowel sounds, : No Renal angle tenderness; EXTREMITIES: No edema, no clubbing, MUSCULOSKELETAL: no muscle wasting NEURO: Awake; no lateralizing signs. SKIN: No Rash PSYCH; Flat affect Assessment & Plan Assessment/Plan (1) Bradycardia: (2) Chronic atrial flutter: PLAN: Plan Patient is a 64-year-old gentleman with history of left craniotomy secondary to subdural hematoma who presented to the emergency department with intractable headache. CT of the head obtained demonstrated postoperative changes from prior left craniotomy. Patient was also found to be bradycardic. Admitted to monitored bed for subsequent management 1. Intractable headache ? Patient admitted to a monitored bed for symptom management. Imaging studies obtained on admission did show Postoperative changes from prior left craniotomy with minimal extra-axial hyperdensity likely representing postoperative dural thickening or trace residual fluid without mass effect. If there is high clinical concern for subdural hematoma consider MRI. No definite acute intracranial hemorrhage or new mass lesion. Findings of cerebral atrophy and chronic microvascular ischemic disease. Otherwise unremarkable noncontrast CT of the head. ? 05/05/2025; patient headache has improved with symptom management 2. Atrial flutter with significant bradycardia ? Patient manage continuously on telemetry case discussed with cardiology?Dr. Yanez plan is for patient to undergo possible pacemaker placement on 05/06 or 05/07/[address] Hampton returns ? 05/05/2025; patient bradycardia appears to be improving heart rate currently in the 50s patient remains in a flutter ? 05/06/2025; patient scheduled to undergo pacemaker placement 3. Hypertension ? Blood pressure controlled, home medications continued with dose adjustment as needed 4. Hypothyroidism ? Patient is on levothyroxine home dose continued 5. Dyslipidemia ?Patient is on statin therapy, continued at home dose. 6. GERD ? On PPI 7. History of subdural hematoma ? Status post craniotomy 8. Class II obesity with BMI of 35 ? Complicating care weight loss advised 9. DVT prophylaxis ? Bilateral SCD Time spent in the patient's overall evaluation,decision-making process, review of diagnostic data, adjustment of management, discussion with other providers, nursing nursing and ancillary staff involved in patient's care documentation, 36 Minutes Charges/Coding Visit Charges Inpatient E&M: 99876 Subs Hosp L2
[2025-05-06] MEDS: 0.9% Saline Lock 10 ML Syringe IV (08:21)
[2025-05-06] MEDS: 0.9% Normal Saline (1000mL) 1,000 ML 15 ML IV (08:26)
--- NOTE | 2025-05-06 14:03 | PCM.PN.CARD ---
Subjective Subjective patient seen and evaluated Objective Data Vital Signs: Vital Signs Temp Pulse Resp BP Pulse Ox O2 Del Method O2 Flow Rate 97.2 F L 59 L 18 166/98 H 97 Room Air 2 05/06/25 11:45 05/06/25 11:45 05/06/25 11:45 05/06/25 11:45 05/06/25 11:45 05/06/25 11:45 05/04/25 01:30 Oxygen Flow Rate (L/min) 2 Oxygen Delivery Method Room Air Weight: 233 lb 3.985 oz Body Mass Index (BMI) 34.9 Intake & Output: Intake and Output for Last 24 Hours 05/04/25 05/05/25 05/06/25 23:59 23:59 23:59 Intake Total 840 / 1240 460 / 460 Balance 840 / 1240 460 / 460 Lab / Micro Data 05/06/25 04:09 05/06/25 04:09 Labs: Laboratory Results - last 24 hr 05/06/25 04:09: WBC 8.7, RBC 4.95, Hgb 15.8, Hct 45.6, MCV 92.1, MCH 31.9, MCHC 34.6, RDW Std Deviation 41.5, RDW Coeff of Celeste 12.3, Plt Count 208, MPV 10.0, Immature Gran % (Auto) 0.300, Neut % (Auto) 51.3, Lymph % (Auto) 29.4, Dickinson % (Auto) 10.5 H, Eos % (Auto) 7.5 H, Baso % (Auto) 1.0, Absolute Neuts (auto) 4.5, Absolute Lymphs (auto) 2.56, Nucleated RBC % 0, Sodium 139, Potassium 3.9, Chloride 105, Carbon Dioxide 22.6, Anion Gap 11, BUN 22 H, Creatinine 0.98, Estim Creat Clear Calc 88.61, Est GFR (MDRD) Non-Af 86, BUN/Creatinine Ratio 22.2 H, Glucose 113 H, Calcium 9.1, Phosphorus 2.7, Magnesium 2.3 H Rhythm Strip Rhythm Strip: Atrial flutter Rate: 40 Cardiology Labs/Tests 05/06/25 04:09: WBC 8.7, RBC 4.95, Hgb 15.8, Hct 45.6, MCV 92.1, MCH 31.9, MCHC 34.6, Plt Count 208, MPV 10.0, Immature Gran % (Auto) 0.300, Neut % (Auto) 51.3, Lymph % (Auto) 29.4, Dickinson % (Auto) 10.5 H, Eos % (Auto) 7.5 H, Baso % (Auto) 1.0, Absolute Neuts (auto) 4.5, Nucleated RBC % 0, Sodium 139, Potassium 3.9, Chloride 105, Carbon Dioxide 22.6, Anion Gap 11, BUN 22 H, Creatinine 0.98, Est GFR (MDRD) Non-Af 86, BUN/Creatinine Ratio 22.2 H, Glucose 113 H, Calcium 9.1, Phosphorus 2.7, Magnesium 2.3 H Rhythm: EKG: ECHO: Stress Test: Cardiac Cath: PCI: CT Surgery: Holter monitor: EPS: PPM: CXR: Chest CT Scan: Physical Exam Const alert and oriented x3 HEENT normocephalic Cardio regular rate, regular rhythm, S1 normal heart sound and S2 normal heart sound Extremity normal to inspection Assessment & Plan Assessment/Plan (1) Sick sinus syndrome: PLAN: Atrial flutter with slow ventricular response. Patient underwent dual-chamber pacemaker placement today and will consider an ablation or Watchman device later on. (2) Atrial flutter: PLAN: Patient not a candidate for anticoagulation. Previous history of spontaneous intracranial bleed on apixaban. (3) History of intracranial hemorrhage: PLAN: See #2 above.
[2025-05-07 04:58] VITALS: BP 152/104; PULSE 70; RESP 18; TEMP 35.8; O2SAT 95
[2025-05-07 05:46] LABS: Hematocrit 46.3 % (40-54); Hemoglobin 16.2 g/dL (13.0-16.5); Immature Granulocytes Count 0.030 X10^3/uL (0.0-0.0); Mean Corp Hgb Conc 35.0 g/dL (32-36); Mean Corpuscular Volume 91.5 fL (80-94); Mean Platelet Vol. 10.2 fl (6.2-12.0); NRBC Flagged by Analyzer 0 % (0-5); Platelet Count 200 K/mm3 (150-450); RBC Distribution Width CV 12.3 % (11.6-14.6); RBC Distribution Width SD 41.1 fl (35.1-43.9); Red Blood Count 5.06 M/mm3 (4.6-6.2); White Blood Count 9.3 K/mm3 (4.4-11.0)
[2025-05-07 06:24] LABS: Anion Gap 9 (5-15); BUN 23 mg/dL (4-19); BUN/Creat Ratio 23.3 RATIO (10-20); Calcium,Total 8.8 mg/dL (7.6-11.0); Carbon Dioxide 22.9 mmol/L (21.0-32.0); Chloride 105 mmol/L (98-108); Estimated Creatinine Clearance 88.61 ml/min (50-250); Glucose 119 mg/dL (70-99); Potassium 4.1 mmol/L (3.3-5.1)
[2025-05-07 09:00] VITALS: BP 165/96; PULSE 72; RESP 18; TEMP 36.4; O2SAT 92
--- NOTE | 2025-05-07 10:33 | PN.HOSP_ITS ---
Reason for Visit
--- NOTE | 2025-05-07 10:33 | PCM.PN.HOSP ---
Reason for Visit Chief Complaint: Headache Objective Data Objective Data Vital Signs: Vital Signs Temp Pulse Resp BP Pulse Ox O2 Del Method O2 Flow Rate 97.6 F L 72 18 165/96 H 92 Room Air 2 05/07/25 09:00 05/07/25 09:00 05/07/25 09:00 05/07/25 09:00 05/07/25 09:00 05/07/25 09:00 05/04/25 01:30 Oxygen Flow Rate (L/min) 2 Oxygen Delivery Method Room Air Weight: 233 lb 3.985 oz Body Mass Index (BMI) 34.9 Intake & Output: Intake and Output for Last 24 Hours 05/05/25 05/06/25 05/07/25 23:59 23:59 23:59 Intake Total 840 / 1240 880 / 880 Output Total 400 / 400 Balance 840 / 1240 880 / 480 -400 / -400 Lab / Micro Data 05/07/25 04:48 05/07/25 04:48 Labs: Laboratory Results - last 24 hr 05/07/25 04:48: WBC 9.3, RBC 5.06, Hgb 16.2, Hct 46.3, MCV 91.5, MCH 32.0, MCHC 35.0, RDW Std Deviation 41.1, RDW Coeff of Celeste 12.3, Plt Count 200, MPV 10.2, Immature Gran % (Auto) 0.300, Neut % (Auto) 55.5, Lymph % (Auto) 24.4, Mcmullen % (Auto) 11.7 H, Eos % (Auto) 7.0 H, Baso % (Auto) 1.1 H, Absolute Neuts (auto) 5.2, Absolute Lymphs (auto) 2.28, Nucleated RBC % 0, Sodium 137, Potassium 4.1, Chloride 105, Carbon Dioxide 22.9, Anion Gap 9, BUN 23 H, Creatinine 0.98, Estim Creat Clear Calc 88.61, Est GFR (MDRD) Non-Af 85, BUN/Creatinine Ratio 23.3 H, Glucose 119 H, Calcium 8.8 Rhythm Strip Rhythm Strip: Atrial flutter Rate: 40 Physical Exam Narrative Seen and examined Chronic smoker, cut down his smoking about 4 to 5 cigarettes/day. Chronic mild wheezing. No chest pain Physical exam General: Alert, Oriented x3, Cooperative. BMI 34.9 kg/m? HEENT: Atraumatic, PERRLA, EOMI, Normocephalic. Oral: No Gingival or Mucosal Lesions/ Ulcerations Neck: Supple, No JVD, Negative Carotid Bruits Chest wall/Lungs: Air entry diminished in bilateral lung bases. Bilateral fine wheeze Cardiovascular: captured pacemaker spikes on the monitor, Normal S1,S2, No M/G/R Abdomen: Bowel Sounds Present, Soft, Non Tender, Non-Distended : No dysuria. No renal angle tenderness. No suprapubic tenderness. Extremities: No edema, Capillary Refill Less than 3 Seconds Skin: Left subclavian pacemaker dressing is intact. No acute tenderness or hematoma Musculoskeletal: LUE on sling. No Tenderness to Palpation of Joints or Extremities Neurological: Cranial nerves II-XII grossly intact, DTR 2+/4. No acute focal neurological deficit. Psych/Mental Status: Normal Affect, Appropriate. Assessment & Plan Assessment/Plan (1) Bradycardia: (2) Chronic atrial flutter: PLAN: Plan Patient is a 64-year-old gentleman with history of left craniotomy secondary to subdural hematoma who presented to the emergency department with intractable headache. CT of the head obtained demonstrated postoperative changes from prior left craniotomy. Patient was also found to be bradycardic. Admitted to monitored bed for subsequent management 1. Intractable headache ? Patient admitted to a monitored bed for symptom management. Imaging studies obtained on admission did show Postoperative changes from prior left craniotomy with minimal extra-axial hyperdensity likely representing postoperative dural thickening or trace residual fluid without mass effect. If there is high clinical concern for subdural hematoma consider MRI. No definite acute intracranial hemorrhage or new mass lesion. Findings of cerebral atrophy and chronic microvascular ischemic disease. Otherwise unremarkable noncontrast CT of the head. ? 05/05/2025; patient headache has improved with symptom management 2. Atrial flutter with significant bradycardia ? Patient manage continuously on telemetry case discussed with cardiology?Dr. Yanez plan is for patient to undergo possible pacemaker placement on 05/06 or 05/07/[address] Hampton returns ? 05/05/2025; patient bradycardia appears to be improving heart rate currently in the 50s patient remains in a flutter ? 05/06/2025; patient scheduled to undergo pacemaker placement 3. Hypertension ? Blood pressure controlled, home medications continued with dose adjustment as needed 4. Hypothyroidism ? Patient is on levothyroxine home dose continued 5. Dyslipidemia ?Patient is on statin therapy, continued at home dose. 6. GERD ? On PPI 7. History of subdural hematoma ? Status post craniotomy 8. Class II obesity with BMI of 35 ? Complicating care weight loss advised 9. DVT prophylaxis ? Bilateral SCD Time spent in the patient's overall evaluation,decision-making process, review of diagnostic data, adjustment of management, discussion with other providers, nursing nursing and ancillary staff involved in patient's care documentation, 36 Minutes
--- NOTE | 2025-05-07 11:17 | PCM.PN.CARD ---
Subjective Subjective Patient seen and evaluated. Doing well Objective Data Vital Signs: Vital Signs Temp Pulse Resp BP Pulse Ox O2 Del Method O2 Flow Rate 97.6 F L 72 18 165/96 H 92 Room Air 2 05/07/25 09:00 05/07/25 09:00 05/07/25 09:00 05/07/25 09:00 05/07/25 09:00 05/07/25 09:00 05/04/25 01:30 Oxygen Flow Rate (L/min) 2 Oxygen Delivery Method Room Air Weight: 233 lb 3.985 oz Body Mass Index (BMI) 34.9 Intake & Output: Intake and Output for Last 24 Hours 05/05/25 05/06/25 05/07/25 23:59 23:59 23:59 Intake Total 840 / 1240 880 / 880 Output Total 400 / 400 Balance 840 / 1240 880 / 480 -400 / -400 Lab / Micro Data 05/07/25 04:48 05/07/25 04:48 Labs: Laboratory Results - last 24 hr 05/07/25 04:48: WBC 9.3, RBC 5.06, Hgb 16.2, Hct 46.3, MCV 91.5, MCH 32.0, MCHC 35.0, RDW Std Deviation 41.1, RDW Coeff of Celeste 12.3, Plt Count 200, MPV 10.2, Immature Gran % (Auto) 0.300, Neut % (Auto) 55.5, Lymph % (Auto) 24.4, [place] % (Auto) 11.7 H, Eos % (Auto) 7.0 H, Baso % (Auto) 1.1 H, Absolute Neuts (auto) 5.2, Absolute Lymphs (auto) 2.28, Nucleated RBC % 0, Sodium 137, Potassium 4.1, Chloride 105, Carbon Dioxide 22.9, Anion Gap 9, BUN 23 H, Creatinine 0.98, Estim Creat Clear Calc 88.61, Est GFR (MDRD) Non-Af 85, BUN/Creatinine Ratio 23.3 H, Glucose 119 H, Calcium 8.8 Rhythm Strip Rhythm Strip: Atrial flutter Rate: 40 Cardiology Labs/Tests 05/07/25 04:48: WBC 9.3, RBC 5.06, Hgb 16.2, Hct 46.3, MCV 91.5, MCH 32.0, MCHC 35.0, Plt Count 200, MPV 10.2, Immature Gran % (Auto) 0.300, Neut % (Auto) 55.5, Lymph % (Auto) 24.4, [place] % (Auto) 11.7 H, Eos % (Auto) 7.0 H, Baso % (Auto) 1.1 H, Absolute Neuts (auto) 5.2, Nucleated RBC % 0, Sodium 137, Potassium 4.1, Chloride 105, Carbon Dioxide 22.9, Anion Gap 9, BUN 23 H, Creatinine 0.98, Est GFR (MDRD) Non-Af 85, BUN/Creatinine Ratio 23.3 H, Glucose 119 H, Calcium 8.8 Rhythm: EKG: ECHO: Stress Test: Cardiac Cath: PCI: CT Surgery: Holter monitor: EPS: PPM: CXR: Chest CT Scan: Assessment & Plan Assessment/Plan (1) Sick sinus syndrome: PLAN: Atrial flutter with slow ventricular response. Patient underwent dual-chamber pacemaker placement and this was checked and noted to be functioning well. Chest x-ray is also under good placement. Will be discharged for outpatient follow-up and will consider an ablation or Watchman device later on. (2) Atrial flutter: PLAN: Patient not a candidate for anticoagulation. Previous history of spontaneous intracranial bleed on apixaban. (3) History of intracranial hemorrhage: PLAN: See #2 above.
--- NOTE | 2025-05-07 11:18 | DCINST_ITS ---
Discharge Instructions
--- NOTE | 2025-05-07 11:18 | PCM.DC ---
Discharge Instructions DC O2, CPAP, BIPAP needs Home O2 Discharge instructions: No Dressing / Incision Discharge Activity: May Not Drive May shower in (days): 2 Additional Activity Instructions:: May shower or bathe on [day 3]. Do not scrub the incision or soak in the tub. Just wash with soap and let the water run over the incision. Gently pat dry with towel. Medications: Take your pain medication as directed. Refer to your discharge instruction sheet for a list of medications you are to take. Dressing / Incision Call your doctor if your incision/area has: Continuous Slow Oozing, Sudden Increased Bleeding, Increased Pain/ Swelling, Increased Redness, Foul Smelling Discharge and Swelling at the incision site Call your doctor if you observe: Fever of 101 or Higher, Shortness of breath, Dizziness, Fainting spells, Swelling in the ankles, Chest pain, Prolonged hiccupping and Increased palpitations (irregular heartbeat) Suture Line Care: Avoid Pulling/Pushing and Avoid Pinching/Bending Cleanse incision/area with: Do not get Incision Wet and Keep Dressing Clean & Dry Additional Dressing/Incision Instructions:: When dressing is removed, wash and dry incision. Keep covered with a light bandage if it is rubbing against your clothing. Do not cover the incision with an airtight bandage. Change the bandage daily. Do not remove steri strips. The strips will fall off on their own. Follow Up Care Please Follow Up With: Marcio Hampton MD When: Pacer follow-up on May 17 at 11 AM Test Results: Test results from this visit will be discussed in further detail at your follow-up appointment, if applicable. Discharge Plan Admission Admit Date/Time: 05/04/25 12:22 Attending Provider: Taiwo Zaldivar Primary Care Provider: Levon Corral Consulting Providers: Kailey Yanez; Lauri Mon; Maikol Burgess Discharge Orders/Prescriptions Prescriptions: No Action amitriptyline 10 MG tablet 25 mg PO QHS Patient Comments: mood lisinopril 5 MG tablet 10 mg PO DAILY Patient Comments: blood pressure levothyroxine 150 MCG tablet 150 mcg PO DAILY Patient Comments: thyroid pantoprazole 40 mg tablet,delayed release (DR/EC) 40 mg PO DAILY gabapentin 100 mg capsule 100 mg PO Q8 nifedipine 30 mg tablet extended release 24hr 30 mg PO DAILY atorvastatin 80 mg tablet 80 mg PO QHS albuterol sulfate 90 mcg/actuation HFA aerosol inhaler 2 puff inhalation Q4H PRN PRN (Reason: shortness of breath or wheezing) Referrals / Follow Up: Levon Corral MD [Primary Care Provider, Internal Medicine]
--- NOTE | 2025-05-07 11:21 | DCINST_ITS ---
Discharge Instructions
--- NOTE | 2025-05-07 11:21 | PCM.DC ---
Discharge Instructions DC O2, CPAP, BIPAP needs Home O2 Discharge instructions: No Dressing / Incision Discharge Activity: Return to Normal Activity May shower in (days): 2 Weight Bearing Status: Weight bearing as tolerated Additional Activity Instructions:: May shower or bathe on [day 3]. Do not scrub the incision or soak in the tub. Just wash with soap and let the water run over the incision. Gently pat dry with towel. Medications: Take your pain medication as directed. Refer to your discharge instruction sheet for a list of medications you are to take. Dressing / Incision Call your doctor if your incision/area has: Continuous Slow Oozing, Sudden Increased Bleeding, Increased Pain/ Swelling, Increased Redness, Foul Smelling Discharge and Swelling at the incision site Call your doctor if you observe: Fever of 101 or Higher, Shortness of breath, Dizziness, Fainting spells, Swelling in the ankles, Chest pain, Prolonged hiccupping and Increased palpitations (irregular heartbeat) Suture Line Care: Avoid Pulling/Pushing and Avoid Pinching/Bending Cleanse incision/area with: Do not get Incision Wet and Keep Dressing Clean & Dry Additional Dressing/Incision Instructions:: When dressing is removed, wash and dry incision. Keep covered with a light bandage if it is rubbing against your clothing. Do not cover the incision with an airtight bandage. Change the bandage daily. Do not remove steri strips. The strips will fall off on their own. Follow Up Care Please Follow Up With: Marcio Hampton MD When: IN 2 WEEKS Test Results: Test results from this visit will be discussed in further detail at your follow-up appointment, if applicable. Discharge Plan Admission Admit Date/Time: 05/04/25 12:22 Attending Provider: Taiwo Zaldivar Primary Care Provider: Levon Earl Consulting Providers: Kailey Yanez; Lauri Mon; Maikol Burgess Instructions Additional Instructions / Restrictions: Follow-up in pacemaker clinic in 2 weeks Discharge Orders/Prescriptions Prescriptions: Continued amitriptyline 10 MG tablet 25 mg PO QHS Patient Comments: mood lisinopril 5 MG tablet 10 mg PO DAILY Patient Comments: blood pressure levothyroxine 150 MCG tablet 150 mcg PO DAILY Patient Comments: thyroid pantoprazole 40 mg tablet,delayed release (DR/EC) 40 mg PO DAILY gabapentin 100 mg capsule 100 mg PO Q8 nifedipine 30 mg tablet extended release 24hr 30 mg PO DAILY atorvastatin 80 mg tablet 80 mg PO QHS albuterol sulfate 90 mcg/actuation HFA aerosol inhaler 2 puff inhalation Q4H PRN PRN (Reason: shortness of breath or wheezing) Referrals / Follow Up: Marcio Hampton MD [Med Staff - Active Staff, Cardiology] - Within 1 Month Levon Earl MD [Primary Care Provider, Internal Medicine] - 05/11/25 11:20 am Referral Note: APPOINTMENT WITH DR. EARL Disposition Disposition (needs filled in before D/C Order can be placed): Home, Self Care
[2025-05-07 11:52] VITALS: BP 157/96; PULSE 65; RESP 18; TEMP 36.2; O2SAT 96
[2025-05-07] MEDS: NIFEdipine 30 MG Tablet PO (11:56)
--- NOTE | 2025-05-07 12:13 | PCM.DC.SUM ---
Providers Date of Admission: 05/04/25 Date of Discharge: 05/07/25 Primary Care Physician: Dr. Levon Earl MD Consultations 05/04/25 02:10 Consult: Cardiology Routine Consulting Provider: Kailey Yanez Reason for Consult: bradycardia EMERGENT Consult: No MD Notified: Yes Date Notified: 05/04/25 Time Notified: 06:43 Method of Notification: Verbal Comments:: via phone Reason For Visit: ATRIAL FLUTTER WITH BRADYCARDIA, HEADACHE Diagnosis Discharge Diagnosis (1) Bradycardia: Status: Acute Code(s): R00.1 - Bradycardia, unspecified (2) Chronic atrial flutter: Status: Chronic Code(s): I48.92 - Unspecified atrial flutter (3) Atrial flutter: Status: Acute Code(s): I48.92 - Unspecified atrial flutter (4) Sick sinus syndrome: Status: Acute Code(s): I49.5 - Sick sinus syndrome (5) History of intracranial hemorrhage: Status: Acute Code(s): Z86.79 - Personal history of other diseases of the circulatory system Plan Patient is a 64-year-old gentleman with history of left craniotomy secondary to subdural hematoma who presented to the emergency department with intractable headache. CT of the head obtained demonstrated postoperative changes from prior left craniotomy. Patient was also found to be bradycardic. Admitted to monitored bed for subsequent management 1. Intractable headache ? Patient admitted to a monitored bed for symptom management. Imaging studies obtained on admission did show Postoperative changes from prior left craniotomy with minimal extra-axial hyperdensity likely representing postoperative dural thickening or trace residual fluid without mass effect. If there is high clinical concern for subdural hematoma consider MRI. No definite acute intracranial hemorrhage or new mass lesion. Findings of cerebral atrophy and chronic microvascular ischemic disease. Otherwise unremarkable noncontrast CT of the head. 05/07 patient headache has improved with symptom management 2. Atrial flutter with significant bradycardia ? Patient manage continuously on telemetry case discussed with cardiology?Dr. Yanez plan is for patient to undergo possible pacemaker placement on 05/06 or 05/07/[address] Hampton returns ? patient bradycardia appears to be improving heart rate currently in the 50s patient remains in a flutter 05/07: Patient had dual-chamber pacemaker inserted on 05/06. 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 Home medication reconciliation done. Discussed with tobacco warehouse manager okay for discharge. 3. Hypertension ? Blood pressure controlled, home medications continued with dose adjustment as needed 4. Hypothyroidism ? Patient is on levothyroxine home dose continued 5. Dyslipidemia ?Patient is on statin therapy, continued at home dose. 6. GERD ? On PPI 7. History of subdural hematoma ? Status post craniotomy 8. Class II obesity with BMI of 35 ? Complicating care weight loss advised 9. DVT prophylaxis ? Bilateral SCD Discharge medication reconciliation done. Discharge follow-up instructions completed. Discharge process discussed with the patient and all questions were answered to patient's satisfaction. Follow with PCP in 1 to 2 weeks Total time spent, exact 35 minutes on discharge meds reconciliation, examination, coordination of care with nurses and ancillary staff, review of imaging and blood test and discussion with the patient on follow-up instructions. Medications at Discharge Home Medications amitriptyline 10 mg tablet 25 mg PO QHS mental health 06/23/13 lisinopril 5 mg tablet 10 mg PO DAILY blood pressure 11/18/14 levothyroxine 150 mcg tablet 150 mcg PO DAILY thyroid 11/01/16 gabapentin 100 mg capsule 100 mg PO Q8 nerve pain 06/23/24 pantoprazole 40 mg tablet,delayed release 40 mg PO DAILY reflux 06/23/24 atorvastatin 80 mg tablet 80 mg PO QHS cholesterol 11/21/24 nifedipine 30 mg tablet,extended release 24 hr 30 mg PO DAILY blood pressure 11/21/24 albuterol sulfate 90 mcg/actuation aerosol inhaler 2 puff inhalation Q4H PRN PRN shortness of breath or wheezing 05/03/25 Physical Exam Narrative Seen and examined Chronic smoker, cut down his smoking about 4 to 5 cigarettes/day. Chronic mild wheezing. No chest pain Physical exam General: Alert, Oriented x3, Cooperative. BMI 34.9 kg/m? HEENT: Atraumatic, PERRLA, EOMI, Normocephalic. Oral: No Gingival or Mucosal Lesions/ Ulcerations Neck: Supple, No JVD, Negative Carotid Bruits Chest wall/Lungs: Air entry diminished in bilateral lung bases. Bilateral fine wheeze Cardiovascular: captured pacemaker spikes on the monitor, Normal S1,S2, No M/G/R Abdomen: Bowel Sounds Present, Soft, Non Tender, Non-Distended : No dysuria. No renal angle tenderness. No suprapubic tenderness. Extremities: No edema, Capillary Refill Less than 3 Seconds Skin: Left subclavian pacemaker dressing is intact. No acute tenderness or hematoma Musculoskeletal: LUE on sling. No Tenderness to Palpation of Joints or Extremities Neurological: Cranial nerves II-XII grossly intact, DTR 2+/4. No acute focal neurological deficit. Psych/Mental Status: Normal Affect, Appropriate. Weight / BMI Weight Weight: 233 lb 3.985 oz Body Mass Index (BMI) 34.9 ABG / Lab / Microbiology Data 05/07/25 04:48 05/07/25 04:48 Laboratory: Laboratory Results - last 24 hr 05/07/25 04:48: WBC 9.3, RBC 5.06, Hgb 16.2, Hct 46.3, MCV 91.5, MCH 32.0, MCHC 35.0, RDW Std Deviation 41.1, RDW Coeff of Celeste 12.3, Plt Count 200, MPV 10.2, Immature Gran % (Auto) 0.300, Neut % (Auto) 55.5, Lymph % (Auto) 24.4, [place] % (Auto) 11.7 H, Eos % (Auto) 7.0 H, Baso % (Auto) 1.1 H, Absolute Neuts (auto) 5.2, Absolute Lymphs (auto) 2.28, Nucleated RBC % 0, Sodium 137, Potassium 4.1, Chloride 105, Carbon Dioxide 22.9, Anion Gap 9, BUN 23 H, Creatinine 0.98, Estim Creat Clear Calc 88.61, Est GFR (MDRD) Non-Af 85, BUN/Creatinine Ratio 23.3 H, Glucose 119 H, Calcium 8.8 D/C Instructions May shower in (days): 2 Weight Bearing Status: Weight bearing as tolerated Additional Activity Instructions: May shower or bathe on [day 3]. Do not scrub the incision or soak in the tub. Just wash with soap and let the water run over the incision. Gently pat dry with towel. Medications: Take your pain medication as directed. Refer to your discharge instruction sheet for a list of medications you are to take. Call your doctor if your incision/area has: Continuous Slow Oozing, Sudden Increased Bleeding, Increased Pain/ Swelling, Increased Redness, Foul Smelling Discharge and Swelling at the incision site Call your doctor if you observe: Fever of 101 or Higher, Shortness of breath, Dizziness, Fainting spells, Swelling in the ankles, Chest pain, Prolonged hiccupping and Increased palpitations (irregular heartbeat) Suture Line Care: Avoid Pulling/Pushing and Avoid Pinching/Bending Cleanse incision/area with: Do not get Incision Wet and Keep Dressing Clean & Dry Additional Dressing/Incision Instructions: When dressing is removed, wash and dry incision. Keep covered with a light bandage if it is rubbing against your clothing. Do not cover the incision with an airtight bandage. Change the bandage daily. Do not remove steri strips. The strips will fall off on their own. DC O2, CPAP, BIPAP Needs Home O2 Discharge instructions: No Please Follow Up With: Marcio Hampton MD When: IN 2 WEEKS Meaningful Use Info Meaningful Use Meaningful Use Diagnoses (Choose all that apply): None applicable Discharge Plan Admission Admit Date/Time: 05/04/25 12:22 Attending Provider: Taiwo Zaldivar Primary Care Provider: Levon Earl Consulting Providers: Kailey Yanez; Lauri Mon; Maikol Burgess Instructions Additional Instructions / Restrictions: Follow-up in pacemaker clinic in 2 weeks Discharge Orders/Prescriptions Prescriptions: Continued amitriptyline 10 MG tablet 25 mg PO QHS Patient Comments: mood lisinopril 5 MG tablet 10 mg PO DAILY Patient Comments: blood pressure levothyroxine 150 MCG tablet 150 mcg PO DAILY Patient Comments: thyroid pantoprazole 40 mg tablet,delayed release (DR/EC) 40 mg PO DAILY gabapentin 100 mg capsule 100 mg PO Q8 nifedipine 30 mg tablet extended release 24hr 30 mg PO DAILY atorvastatin 80 mg tablet 80 mg PO QHS albuterol sulfate 90 mcg/actuation HFA aerosol inhaler 2 puff inhalation Q4H PRN PRN (Reason: shortness of breath or wheezing) Referrals / Follow Up: Marcio Hampton MD [Med Staff - Active Staff, Cardiology] - Within 1 Month Levon Earl MD [Primary Care Provider, Internal Medicine] - 05/11/25 11:20 am Referral Note: APPOINTMENT WITH DR. EARL Disposition Disposition (needs filled in before D/C Order can be placed): Home, Self Care Charges/Coding Visit Charges Inpatient E&M: 72357 Disch Hosp >30min
[2025-05-07 13:03] VITALS: BP 143/96
--- NOTE | 2025-05-07 13:32 | CASEMGMT ---
Patient has order for discharge. RN CM in to discuss needs at discharge, at bedside. Patient denies needs or help at discharge. Patient had no further questions or concerns.
--- NOTE | 2025-05-07 13:35 | PHA.DC_ITS ---
Pharmacy DC Med Reconciliation
--- NOTE | 2025-05-07 13:35 | PHA.DC.MR.R ---
Pharmacy [place] Med Reconciliation Pharmacy Service has performed discharge medication reconciliation for this patient. The patient's discharge medication list was reviewed for discrepancies and discrepancies were resolved. Medications at Discharge Home Medications amitriptyline 10 mg tablet 25 mg PO QHS mental health 06/23/13 lisinopril 5 mg tablet 10 mg PO DAILY blood pressure 11/18/14 levothyroxine 150 mcg tablet 150 mcg PO DAILY thyroid 11/01/16 gabapentin 100 mg capsule 100 mg PO Q8 nerve pain 06/23/24 pantoprazole 40 mg tablet,delayed release 40 mg PO DAILY reflux 06/23/24 atorvastatin 80 mg tablet 80 mg PO QHS cholesterol 11/21/24 nifedipine 30 mg tablet,extended release 24 hr 30 mg PO DAILY blood pressure 11/21/24 albuterol sulfate 90 mcg/actuation aerosol inhaler 2 puff inhalation Q4H PRN PRN shortness of breath or wheezing 05/03/25
== END 2025-05-07 14:52 | disposition home or self-care (01) | DRG 243 ==
LOC: ED 22:55 → PCU 05-04 00:08
PROVIDERS: Internal Medicine; Admitting Provider Family Medicine; Emergency Provider Emergency Medicine; PCP Internal Medicine; Visit Provider Internal Medicine
DX: I48.92 Unspecified atrial flutter (principal); I67.82 Cerebral ischemia; I49.5 Sick sinus syndrome; J44.9 Chronic obstructive pulmonary disease, unspecified; I10 Essential (primary) hypertension; G31.9 Degenerative disease of nervous system, unspecified; E03.9 Hypothyroidism, unspecified; Z68.35 Body mass index [BMI] 35.0-35.9, adult; K21.9 Gastro-esophageal reflux disease without esophagitis; F17.210 Nicotine dependence, cigarettes, uncomplicated; F12.90 Cannabis use, unspecified, uncomplicated; E78.5 Hyperlipidemia, unspecified; R00.1 Bradycardia, unspecified; Z79.899 Other long term (current) drug therapy; E66.812 Obesity, class 2; Z95.0 Presence of cardiac pacemaker; Z86.79 Personal history of other diseases of the circulatory system; Z86.73 Personal history of transient ischemic attack (TIA), and cerebral infarction without residual deficits
CPT/HCPCS: 33208; 36415; 70450; 70551; 71047; 80048; 80053; 83735; 84100; 84443; 84484; 85025; 93005; 93306; 99152; 99153; 99283; A4216; C1894